=== PATIENT | female | born 1955 | race Caucasian/White ===

== ENCOUNTER → 2017-01-29 | Outpatient (REF) | payer OTHER, BC | LOC: M LAB REF 09:12 | PROVIDERS: ATTEND Physician Assistant | DX: R30.0 Dysuria (principal) ==

== ENCOUNTER → 2017-05-15 | Outpatient (REF) | payer OTHER, BC ==
[2017-05-15 22:18] LABS: APPEARANCE, URINE CLOUDY (CLEAR); BACTERIA, URINE AUTO 3+ (NEGATIVE); BILIRUBIN, URINE AUTO NEGATIVE (NEGATIVE); BLOOD, URINE BLOOD NEGATIVE (NEGATIVE); COLOR, URINE YELLOW (YELLOW); GLUCOSE, URINE (UA) AUTO NEGATIVE (NEGATIVE); KETONE, URINE AUTO NEGATIVE (NEGATIVE); LEUKOCYTE ESTERASE, URINE AUTO 3+ (NEGATIVE); MUCUS, URINE SMALL (NEGATIVE); NITRITE, URINE AUTO POSITIVE (NEGATIVE); PROTEIN, URINE AUTO NEGATIVE (NEGATIVE); RBC, URINE AUTO 1 /HPF (0-3); SQUAMOUS EPITHELIAL CELL UR AU 2 /HPF (0-6); WBC, URINE AUTO 59 /HPF (0-3)
== END ==
LOC: M LAB REF 08:35
DX: N39.0 Urinary tract infection, site not specified (principal)
CPT/HCPCS: 81001

== ENCOUNTER → 2017-09-18 | Outpatient (CLI) | payer OTHER, BC | LOC: M WHC 08:51 | DX: Z12.31 Encounter for screening mammogram for malignant neoplasm of breast (principal); Z78.0 Asymptomatic menopausal state; Z92.0 Personal history of contraception | CPT/HCPCS: 77067 ==

== ENCOUNTER → 2017-10-18 | Outpatient (CLI) | payer OTHER, BC | LOC: M RAD 13:42 | DX: R92.8 Other abnormal and inconclusive findings on diagnostic imaging of breast (principal); N63.20 Unspecified lump in the left breast, unspecified quadrant | CPT/HCPCS: 77065 ==

== ENCOUNTER → 2017-12-18 | Outpatient (CLI) | payer OTHER, BC | LOC: M RAD 09:26 | DX: N63.20 Unspecified lump in the left breast, unspecified quadrant (principal) | CPT/HCPCS: 76642 ==

== ENCOUNTER → 2018-01-01 | Outpatient (CLI) | payer OTHER, BC ==
[~2018-01-01] MED LIST: PROHANCE 279.3MG/ML 15ML VIAL (A9576) As Ordered
== END ==
LOC: M RAD 14:45
DX: N63.20 Unspecified lump in the left breast, unspecified quadrant (principal); N60.49 Mammary duct ectasia of unspecified breast; Z98.82 Breast implant status
CPT/HCPCS: A9576

== ENCOUNTER → 2018-09-02 | Outpatient (CLI) | payer OTHER, BC ==
--- NOTE | 2018-09-10 16:23 | SLEEPCENT ---
DATE OF PROCEDURE: 09/02/2018 ORDERED BY: Lily Patel NP Nocturnal polysomnography was performed for evaluation of sleep physiology in this patient with history of excessive somnolence. 9 hours and 28 minutes of data were reviewed. There were 408 minutes of sleep identified. Sleep latency was prolonged at 83 minutes. Rapid eye movement (REM) sleep latency was prolonged at 245 minutes. Sleep architecture was fair with a prolonged REM period between 2 and 4:30 a.m. Overall sleep efficiency was 72%. The patient's electrocardiogram showed sinus rhythm with an average heart rate of 68 beats per minute. Electroencephalogram (EEG) showed some coarsening in background. No focal events. Otherwise, normal waveforms for awake and sleep stages. There were 181 respiratory events identified of 10 seconds in duration or greater for an apnea-hypopnea index of 26.6. The events were primarily obstructive,. not exclusive to sleep stage nor body posture. Arousals from respiratory events occurred 3.4 times per hour and oxygen desaturations were seen into the upper 80s. There was some activity in the limb leads but arousals from limb events were few. IMPRESSION: Obstructive sleep apnea syndrome (G47.33). Apnea-hypopnea index 26.6. RECOMMENDATIONS: The patient should be encouraged to return to the sleep disorder center for pressure therapy. In the interim, alcohol and sedative avoidance should be practiced and caution exercised during the operation of motor vehicles.
== END ==
LOC: M SLEEP 20:00
PROVIDERS: ATTEND Nurse Practitioner Adult Health
DX: G47.33 Obstructive sleep apnea (adult) (pediatric) (principal)

== ENCOUNTER → 2018-09-29 | Outpatient (CLI) | payer OTHER, BC ==
--- NOTE | 2018-10-03 07:30 | SLEEPCENT ---
DATE OF STUDY: 10/02/2018 ORDERED BY: HUY Benjamin Nocturnal polysomnography was performed for the titration of pressure therapy in this patient with obstructive sleep apnea syndrome and apnea-hypopnea index of 26.6. For testing, a Infratel Simplus full-face mask of small size was used and 4 cm of water pressure were applied to the circuit and the lights were extinguished. 7 hours and 17 minutes of data were reviewed. There were 342 minutes of sleep identified. Sleep latency was prolonged at 40 minutes. Rapid eye movement (REM) sleep was not achieved during the study. Overall sleep efficiency was 79.9%. The patient's electrocardiogram showed a sinus rhythm with small complexes and average heart rate 72 beats per minute. Electroencephalogram (EEG) showed reasonably normal waveforms for awake and sleep. Respiratory events were fully palliated with C-PAP at a pressure +6. There was some limb activity noted particularly early in the study. Limb movement arousal index was 4.2. IMPRESSION: Obstructive sleep apnea syndrome (G47.33). RECOMMENDATION: Nightly use of pressure therapy at 6 cm of water.
== END ==
LOC: M SLEEP 20:00
PROVIDERS: ATTEND Nurse Practitioner Adult Health
DX: G47.33 Obstructive sleep apnea (adult) (pediatric) (principal)

== ENCOUNTER → 2019-02-12 | Outpatient (CLI) | payer OTHER, BC ==
--- NOTE | 2019-02-14 09:41 | DEXA ---
AP SPINE L1 - L4 1.065 -1.0 0.6 LT FEMUR TOTAL 0.828 -1.4 -0.3 LT NECK 0.771 -1.9 -0.5 RT FEMUR TOTAL 0.873 -1.1 0.1 RT NECK 0.842 -1.4 0.0 TOTAL BODY TOTAL OTHER COMMENTS: There is low bone density of the spine and hips. The increased density of the spine does not represent significant change. The decreased density of the left hip does represent a significant change. The decreased density of the right hip does not represent significant change. The density of the spine has increased 4.1% since the initial exam on 03/19/2007. The spine density has increased 1.6% since the most recent exam on 01/01/2017. The density of the left hip has decreased 5.4% since the initial exam on 03/19/2007. The density of the left hip has decreased 4.2% since the most recent exam on 12/30/2016. The density of the right hip has decreased 6.1% since the initial exam on 07/12/2010. The density of the right hip has decreased 1.9% since the most recent exam on 12/30/2016. FOLLOW-UP: Recommendation for the next bone density exam: 2 years. MORGAN
== END ==
LOC: M WHC 14:29
PROVIDERS: ATTEND Internal Medicine
DX: E83.52 Hypercalcemia (principal)

== ENCOUNTER → 2019-02-13 | Outpatient (CLI) | payer OTHER, BC ==
--- NOTE | 2019-02-13 14:56 | REP ---
NUCLEAR PARATHYROID SESTAMIBI SCAN WITH SPECT IMAGING: Following the intravenous administration of 25.1 mCi of technetium-99m sestamibi, AP and oblique images of the neck are performed at 15 minutes and 3.5 hours following injection. SPECT images are performed in the axial, coronal, and sagittal planes. There is symmetrical salivary gland uptake initially. There is uptake in the left thyroid lobe on initial images. This washes out on delayed images. There is no persistent focus of increased uptake on delayed imaging in the soft tissues of the neck that would suggest the presence of a parathyroid adenoma. The patient has had a prior right thyroidectomy. IMPRESSION: No compelling scintigraphic evidence of parathyroid adenoma. Electronically Signed by Alexei Hennessy MD 02/13/2019 06:41 P
== END ==
LOC: M RAD 08:19
PROVIDERS: ATTEND Internal Medicine
DX: E83.52 Hypercalcemia (principal)
CPT/HCPCS: 78070; 78803; A9500

== ENCOUNTER → 2020-11-12 | Outpatient (REF) | payer MEDICARE, OTHER, BC ==
[2020-11-12 20:16] LABS: APPEARANCE, URINE CLOUDY (CLEAR); BACTERIA, URINE AUTO 1+ (NEGATIVE); BILIRUBIN, URINE AUTO NEGATIVE (NEGATIVE); BLOOD, URINE BLOOD 1+ (NEGATIVE); CALCIUM OXALATE CRYSTALS MODERATE; COLOR, URINE AMBER (YELLOW); GLUCOSE, URINE (UA) AUTO NEGATIVE (NEGATIVE); KETONE, URINE AUTO NEGATIVE (NEGATIVE); LEUKOCYTE ESTERASE, URINE AUTO 3+ (NEGATIVE); MUCUS, URINE LARGE (NEGATIVE); NITRITE, URINE AUTO NEGATIVE (NEGATIVE); PROTEIN, URINE AUTO 2+ mg/dL (NEGATIVE); RBC, URINE AUTO 167 /HPF (0-3); SPECIFIC GRAVITY URINE AUTO 1.027 (1.002-1.035); SQUAMOUS EPITHELIAL CELL UR AU 4 /HPF (0-6); UROBILINOGEN, URINE AUTO 0.2 mg/dL (0.0-2.0); WBC, URINE AUTO TNTC /HPF (0-3)
== END ==
LOC: M LAB REF 17:32
PROVIDERS: ATTEND Physician Assistant
DX: R30.0 Dysuria (principal)

== ENCOUNTER → 2021-01-18 | Outpatient (REF) | payer MEDICARE, OTHER, BC ==
[2021-01-18 14:09] LABS: APPEARANCE, URINE CLOUDY (CLEAR); BACTERIA, URINE AUTO NEGATIVE (NEGATIVE); BILIRUBIN, URINE AUTO NEGATIVE (NEGATIVE); BLOOD, URINE BLOOD 2+ (NEGATIVE); COLOR, URINE YELLOW (YELLOW); GLUCOSE, URINE (UA) AUTO NEGATIVE (NEGATIVE); KETONE, URINE AUTO NEGATIVE (NEGATIVE); LEUKOCYTE ESTERASE, URINE AUTO 3+ (NEGATIVE); MUCUS, URINE SMALL (NEGATIVE); NITRITE, URINE AUTO NEGATIVE (NEGATIVE); PROTEIN, URINE AUTO NEGATIVE (NEGATIVE); RBC, URINE AUTO 28 /HPF (0-3); SPECIFIC GRAVITY URINE AUTO 1.015 (1.002-1.035); SQUAMOUS EPITHELIAL CELL UR AU 4 /HPF (0-6); UROBILINOGEN, URINE AUTO 0.2 mg/dL (0.0-2.0); WBC, URINE AUTO 153 /HPF (0-3)
== END ==
LOC: M LAB REF 13:30
PROVIDERS: ATTEND Physician Assistant
DX: N39.0 Urinary tract infection, site not specified (principal)

== ENCOUNTER → 2021-02-09 | Outpatient (CLI) | payer MEDICARE, OTHER, BC ==
--- NOTE | 2021-02-09 11:24 | DEXAMM ---
INDICATION: OTHER OSTEOPOROSIS WO CURRENT PATHOLOGICAL FX. COMPARISON: February 12, 2019. TECHNIQUE: Bone density was measured using dual-energy x-ray absorptionmetry (DEXA). FINDINGS: AP SPINE L1-L4 BMD 1.007 g/cm2 Young Adult T-Score -1.5 Age Matched Z-Score 0.1. LT FEMUR, TOTAL BMD 0.790 g/cm2 Young Adult T-Score -1.7 Age Matched Z-Score -0.5. LT NECK BMD 0.759 g/cm2 Young Adult T-Score -2.0 Age Matched Z-Score -0.5. RT FEMUR, TOTAL BMD 0.822 g/cm2 Young Adult T-Score -1.5 Age Matched Z-Score -0.2. RT NECK BMD 0.768 g/cm2 Young Adult T-Score -1.9 Age Matched Z-Score -0.4. IMPRESSION: There is low bone density of the spine. There is low bone density of the left hip. There is low bone density of the right hip. The density of the spine has decreased 1.6% since the initial exam on March 19, 2007. The density of the spine decreased 5.4% since the most recent exam on February 12, 2019. The density of the left hip has decreased 9.7% since the initial exam on March 19, 2007. The density of the left hip has decreased 4.6% since the most recent exam on February 12, 2019. The density of the right hip has decreased 11.6% since the initial exam on July 12, 2010. The density of the right hip has decreased 5.8% since the most recent exam on February 12, 2019. FOLLOW-UP: Recommendation for the next bone density exam: 2 years. <Electronically signed by Ashvin Munoz > 02/09/21 [id number]
== END ==
LOC: M WHC 09:59
PROVIDERS: ATTEND Internal Medicine
DX: M85.851 Other specified disorders of bone density and structure, right thigh (principal); M85.852 Other specified disorders of bone density and structure, left thigh; M85.88 Other specified disorders of bone density and structure, other site

== ENCOUNTER 2021-03-23 13:02 | Emergency (ER) | payer OTHER, MEDICARE, BC ==
[~2021-03-23] VITALS: Ht 160 cm; Wt 62.3 kg
--- OUTSIDE RECORDS SUMMARY | 2021-03-23 13:11 | CCD | Continuity of Care Document ---
Author Author Sara Cordon M.D. Organization Unknown Address [address] [address] Phone [phone] Care Team Providers Care Events Specialist Name Role Phone Lenka Cordon MD AUTM [phone] [facility] - director of field sales AUTM [phone] Problems Active Problems Provider Date Pure hypercholesterolemia Lenka Cordon M.D. Onset: 05/2020 Environmental allergy Lenka Cordon M.D. Onset: 021 Hypercalcemia Lenka Cordon M.D. Onset: 1 Hypothyroidism Lenka Cordon M.D. Onset: 1 Salcido's esophagus Lenka Cordon M.D. Onset: 1 Urge incontinence of urine Lenka Cordon M.D. Onset: Carcinoma of ovary, stage 4 Lenka Cordon M.D. Onset: 0 08/06/2020 Social History Type Date Description Comments Sex Unknown ETOH Use Denies alcohol use Tobacco Use Start: Unknown Patient has never smoked Allergies and adverse reactions Active Allergies Criticality Reaction | Severity Comments Date Avelox Unable to assess criticality Hives 08/06/2020 Taxol Unable to assess criticality Anaphylaxis 11/17/2020 Medications Active Medications SIG Qnty Indications Ordering Provide r Date Saline Nasal Radom 0.65% Solution 2-4x/d as directed 1units Lenka Cordon M.D. 03/22/20 21 Atorvastatin Calcium 40mg Tablets 1 by mouth every day 90tabs Lenka Cordon M.D. 08/07/19 [address] 1 by mouth every day 90caps Lenka Cordon M.D. 08/07/19 21 Lexapro 20mg Tablets 1 by mouth every day 90tabs Lenka Cordon M.D. 08/06/2020 Valtrex 1gm Tablets 1 bid po x 2 days prn Lenka Cordon M.D. 08/06/2020 Probiotic Capsules 1 by mouth every day Lenka Cordon M.D. 08/06/2020 Synthroid 75mcg Tablets 1 by mouth every day mendoza Unknown Vitamin D3 Super Strength 50mcg (2000 Ut) Tablets 1 by mouth every day Unknown 000 Myrbetriq 50mg Tablets ER 24HR 1 by mouth every day Unknown Singulair 10mg Tablets take one tablet by mouth at bedtime Unknown Zyrtec Allergy 10mg Tablets 1 by mouth every day Unknown Ocuvite Eye + Multi Tablets every day Unknown Immunizations CPT Code Status Date Vaccine Lot # [id number] Given 03/13/2021 Influenza,Unspecified [id number] Given 08/06/2020 Pneumovax 23 [id number] Vital Signs Date Vital Result Comment 03/22/2021 8:29am BP Systolic 128 mmHg RT Arm BP Diastolic 62 mmHg RT Arm Heart Rate 68 /min Height 63.25 inches 5'3.25" Weight 139.00 lb BMI (Body Mass Index) 24.4 kg/m2 11/17/2020 1:02pm BP Systolic 116 mmHg BP Diastolic 72 mmHg Heart Rate 84 /min Height 63.25 inches 5'3.25" Weight 138.00 lb BMI (Body Mass Index) 24.3 kg/m2 Results Test Acquired Date Facility Test Result H/L Range Note Laboratory test finding 02/17/2021 [facility] TSH 1.050 u[IU]/mL 0.270-4.200 Vit D 25 Hydroxy Total 39 ng/mL >30 Laboratory test finding 11/17/2020 alec Pearce Medical Supply Technician: [facility] [place] [address] [phone] Thyroid Stimulating Hormone 0.85 uIU/mL 0.3 6 - 3.74 Procedures Date Code Description Status 02/09/2021 [id number] Bone Mineral Density Test Comple jc 11/17/2020 34419 Office/Outpatient Established Mo d MDM 30-39 Min Completed Medical Devices Description No Information Available Encounters Type Date Location Provider Dx Diagnosis Office Visit 11/17/2020 1:15p [facility] Obi Cordon M.D. C56.9 Malignant neoplasm of unspec ified ovary F41.9 Anxiety disorder, unspecifie d K22.70 Salcido's esophagus without dysplasia M85.80 Oth disrd of bone density an d structure, unspecified site E03.9 Hypothyroidism, unspecified E83.52 Hypercalcemia N39.41 Urge incontinence J30.9 Allergic rhinitis, unspecifi ed Assessments Date Code Description Provider 03/22/2021 C56.9 Malignant neoplasm of unspecifie d ovary Lenka Cordon M.D. 03/22/2021 F41.9 Anxiety disorder, unspecified Elaine Cordon M.D. 03/22/2021 K22.70 Salcido's esophagus without dysp lasia Lenka Cordon M.D. 03/22/2021 M85.80 Other specified diso rders of bone density and structure, unspecified site Lenka Cordon M.D. 03/22/2021 E21.3 Hyperparathyroidism, unspecified Lenka Cordon M.D. 03/22/2021 E03.9 Hypothyroidism, unspecified Mojgan Cordon M.D. 03/22/2021 N39.41 Urge incontinence Lenka bruner M.D. 03/22/2021 J30.9 Allergic rhinitis, unspecified J gianluca Cordon M.D. 03/22/2021 E78.00 Pure hypercholesterolemia, unspe cified Lenka Cordon M.D. 03/22/2021 R73.09 Other abnormal glucose Lenka Cordon M.D. 11/17/2020 C56.9 Malignant neoplasm of unspecifie d ovary Lenka Cordon, M.D. 11/17/2020 F41.9 Anxiety disorder, unspecified Elaine Cordon M.D. 11/17/2020 K22.70 Salcido's esophagus without dysp lasia Lenka Cordon M.D. 11/17/2020 M85.80 Other specified diso rders of bone density and structure, unspecified site Lenka Cordon M.D. 11/17/2020 E03.9 Hypothyroidism, unspecified Mojgan Cordon M.D. 11/17/2020 E83.52 Hypercalcemia Lenka mccall M.D. 11/17/2020 N39.41 Urge incontinence Lenka bruner M.D. 11/17/2020 J30.9 Allergic rhinitis, unspecified J gianluca Cordon M.D. Plan of Treatment Future Appointment(s):* 08/16/2021 8:30 am - Lenka Cordon M.D. at [facility] * 08/16/2021 8:00 am - [facility] 03/22/2021 - Lenka Cordon M.D.* C56.9 Malignant neoplasm of unspecified ovary * F41.9 Anxiety disorder, unspecified * K22.70 Salcido's esophagus without dysplasia * M85.80 Other specified disorders of bone density and structure, unspecified site * E21.3 Hyperparathyroidism, unspecified * E03.9 Hypothyroidism, unspecified * N39.41 Urge incontinence * J30.9 Allergic rhinitis, unspecified * E78.00 Pure hypercholesterolemia, unspecified* New Labs:* Lipid Panel, Ordered: 03/22/21 * R73.09 Other abnormal glucose* New Labs:* Hemoglobin A1c, Ordered: 03/22/21 * All * New Medication:* Saline Nasal Radom 0.65 % - 2-4x/d as directed Functional Status Description No Information Available Mental Status Description No Information Available Referrals Description No Information Available
--- OUTSIDE RECORDS SUMMARY | 2021-03-23 13:11 | CCD | Continuity of Care Document ---
Author Author Sara Cordon M.D. Organization Unknown Address [address] [address] Phone [phone] Care Team Providers Care Junior Account Executive Name Role Phone Lenka Cordon MD AUTM [phone] [facility] - technical solution architect AUTM [phone] Problems Active Problems Provider Date Pure hypercholesterolemia [...] SIG Qnty Indications Ordering Provide r Date Atorvastatin Calcium 40mg Tablets 1 by mouth [...] Eye + Multi Tablets every day Unknown Lovenox 40mg/0.4ML Solution 0.4ml sq daily Unknown Immunizations CPT Code Status Date Vaccine Lot # [id number] Given 08/06/2020 Pneumovax 23 [id number] Vital Signs Date Vital Result Comment 11/17/2020 1:02pm BP Systolic 116 mmHg BP Diastolic 72 mmHg Heart Rate 84 /min Height 63.25 inches 5'3.25" Weight 138.00 lb BMI (Body Mass Index) 24.3 kg/m2 08/06/2020 10:57am BP Systolic 122 mmHg RT Arm BP Diastolic 68 mmHg RT Arm Heart Rate 87 /min Height 63.25 inches 5'3.25" Weight 147.00 lb BMI (Body Mass Index) 25.8 kg/m2 Results Test Acquired Date Facility Test Result H/L Range Note Laboratory test finding 02/17/2021 [facility] TSH 1.050 u[IU]/mL 0.270-4.200 Vit D 25 Hydroxy Total 39 ng/mL >30 Laboratory test finding 11/17/2020 alec Pearce Pinion Sorter: [place] [address] [phone] Thyroid Stimulating Hormone 0.85 uIU/mL 0.3 6 - 3.74 Procedures Date Code Description Status 02/09/2021 [id number] Bone Mineral Density Test Comple jc 11/17/2020 31188 Office/Outpatient Established Mo d MDM 30-39 Min Completed Medical Devices Description No Information Available Encounters Type Date Location Provider Dx Diagnosis Office Visit 11/17/2020 1:15p [facility] Obi Cordon M.D. C56.9 Malignant neoplasm of unspec ified ovary F41.9 Anxiety disorder, unspecifie d K22.70 Salcido's esophagus without dysplasia M85.80 Oth disrd of bone density an d structure, unspecified site E03.9 Hypothyroidism, unspecified E83.52 Hypercalcemia N39.41 Urge incontinence J30.9 Allergic rhinitis, unspecifi ed Assessments Date Code Description Provider 11/17/2020 C56.9 Malignant neoplasm of unspecifie d ovary Lenka Cordon M.D. 11/17/2020 F41.9 Anxiety disorder, unspecified Elaine Cordon M.D. 11/17/2020 K22.70 Salcido's esophagus without dysp lasia eLnka Cordon M.D. 11/17/2020 M85.80 Other specified diso rders of bone density and structure, unspecified site Lenka Cordon M.D. 11/17/2020 E03.9 Hypothyroidism, unspecified Mojgan Cordon M.D. 11/17/2020 E83.52 Hypercalcemia Lenka mccall M.D. 11/17/2020 N39.41 Urge incontinence Lenka bruner M.D. 11/17/2020 J30.9 Allergic rhinitis, unspecified J gianluca Cordon M.D. Plan of Treatment Future Appointment(s):* 03/22/2021 8:30 am - Lenka Cordon M.D. at [facility] 11/17/2020 - Lenka Cordon M.D.* C56.9 Malignant neoplasm of unspecified ovary * F41.9 Anxiety disorder, unspecified * K22.70 Salcido's esophagus without dysplasia * M85.80 Other specified disorders of bone density and structure, unspecified site * E03.9 Hypothyroidism, unspecified * E83.52 Hypercalcemia * N39.41 Urge incontinence * J30.9 Allergic rhinitis, unspecified * All * Comments:* Health Maintenance. I'll hold off on Shingrix and Tetanus until is more stable. She gets mammograms at Dr. Serrano. Functional Status Description No Information Available Mental Status Description No Information Available Referrals Description No Information Available
--- OUTSIDE RECORDS SUMMARY | 2021-03-23 13:11 | CCD | Continuity of Care Document ---
Author Author Sara Cordon M.D. Organization Unknown Address [address] [address] Phone [phone] Care Team Providers Care Youth Manager Name Role Phone Lenka Cordon MD AUTM [phone] [facility] - library media technician AUTM [phone] Problems Active Problems Provider Date Pure hypercholesterolemia [...] CPT Code Status Date Vaccine Lot # [id number] Given 08/06/2020 Pneumovax 23 [id number] Vital Signs Date Vital Result Comment 11/17/2020 [...] H/L Range Note Laboratory test finding 02/17/2021 [facility] TSH 1.050 u[IU]/mL 0.270-4.200 Vit D 25 Hydroxy Total 39 ng/mL >30 Laboratory test finding 11/17/2020 alec Pearce Director Of Compliance: [place] [address] [phone] Thyroid Stimulating Hormone 0.85 uIU/mL 0.3 6 - 3.74 Procedures Date Code Description Status 02/09/2021 [id number] Bone Mineral Density Test Comple jc 11/17/2020 99563 Office/Outpatient Established Mo d MDM 30-39 Min Completed Medical Devices Description No Information Available Encounters Type Date Location Provider Dx Diagnosis Office Visit 11/17/2020 1:15p [facility] Obi Cordon M.D. C56.9 Malignant [...] 8:30 am - Lenka Cordon M.D. at [facility] 11/17/2020 - Lenka Cordon M.D.* C56.9 [...]
--- OUTSIDE RECORDS SUMMARY | 2021-03-23 13:12 | CCD | Continuity of Care Document ---
Author Author Sara PETTIT ANP Organization Unknown Address [address] [place] [address] Phone [phone] Care Team Providers Care Meteorological Observer Name Role Phone Lorena Portillo AUTM [phone] [facility]M [phone] Shadi Sotelo M.D. AUTM [phone] Lenka Healy M.D. AUTM [phone] Problems Active Problems Provider Date Squamous cell carcinoma of skin of trunk Marion Guzman Onset: 07/24/2013 Polypoid sinus degeneration Loy Price MD Onset: Dysphagia Loy Price MD Onset: 12/23/2013 Obstructive sleep apnea syndrome HUY Benjamin Onset: 02/05/2020 Social History Type Date Description Comments Sex Unknown ETOH Use Occasionally consumes alcohol Tobacco Use Start: Unknown Patient has never smoked Smoking Status Reviewed: 02/09/21 Patient has never smoked Allergies and adverse reactions Active Allergies Criticality Reaction | Severity Comments Date Environmental Unable to assess criticality 09/19/2011 Avelox Unable to assess criticality HIVES 07/23/2013 Augmentin Unable to assess criticality VOMITING 07/23/2013 Taxol Unable to assess criticality Anaphylactic Shock 02/09/2021 Medications Active Medications SIG Qnty Indications Ordering Provide r Date CPAP Device 8cm HUY Gramajo 01/26/2020 Singulair 10mg Tablets 1 po q d 30tabs Unknown Zyrtec Allergy 10mg Tablets 1 po qd 30tabs Unknown Lexapro 20mg Tablets 1 po qd Unknown Omeprazole 20mg Capsules DR 1 po qd 30caps Unknown Vitamin D3 High Potency 1000Unit C apsules 1 tab po daily 30caps Unknown Multivitamins Capsules 1 cap po daily Unknown Synthroid 75mcg Tablets every day Unknown Atorvastatin Calcium 40mg Tablets 1 by mouth daily Unknown Myrbetriq 50mg Tablets ER 24HR 1 by mouth daily Unknown Potassium Chloride Landy ER every day Unknown Iron (Ferrous Sulfate) every day Unknown Immunizations Description No Information Available Vital Signs Date Vital Result Comment 02/09/2021 12:51pm BP Systolic 110 mmHg BP Diastolic 70 mmHg Heart Rate 90 /min O2 % BldC Oximetry 98 % Height 64 inches 5'4" Weight 138.00 lb BMI (Body Mass Index) 23.7 kg/m2 [place] Body Weight 120 lb Weight 62.597 kg BSA (Body Surface Area) 1.67 m2 02/05/2020 12:45pm BP Systolic 118 mmHg BP Diastolic 78 mmHg Heart Rate 80 /min O2 % BldC Oximetry 96 % Body Temperature 96.8 F Height 64 inches 5'4" Weight 162.00 lb BMI (Body Mass Index) 27.8 kg/m2 [place] Body Weight 120 lb Weight 73.483 kg BSA (Body Surface Area) 1.79 m2 Results Description No Information Available Procedures Description No Information Available Medical Devices Description No Information Available Encounters Description No Information Available Assessments Date Code Description Provider 02/09/2021 G47.33 Obstructive sleep apnea (adult) (pediatric) HUY Benjamin Plan of Treatment Future Appointment(s):* 02/10/2022 11:00 am - HUY Benjamin at [facility] Pulmonary/Thoracic 02/09/2021 - HUY Benjamin* G47.33 Obstructive sleep apnea (adult) (pediatric) * * Follow up:* Follow up in 12 months with compliance report for TU-[facility] Functional Status Description No Information Available Mental Status Description No Information Available Referrals Description No Information Available
--- OUTSIDE RECORDS SUMMARY | 2021-03-23 13:12 | CCD | Summary of Care ---
Author Author [facility] Organization [facility] Address Unknown Phone Unavailable Care Team Providers Care Certified Ski Patroller Name Role Phone Lenka Cordon MD PCP Reason for Referral * Consultation (Routine) Referred By Contact Referred To Contact Status Reason Specialty Diagnoses / Procedures Aditi Santiago NP [address] [place] [phone] Email: [email or web address] Hyacinth Srivastava MD PhD [address] [place] [phone] Email: [email or web address] Authorized Specialty Services Surgery Diagnoses Required Carcinoma of right ovary 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 Electronically signed by Aditi Santiago TREE EXPERT at Reason for Visit * Reason Comments Follow-up Encounter Details Care Team Description Date Type Department Noris Bee MD [address] [place] [address] [phone] Carcinoma of right ovary (Primary Dx); 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 Active escitalopram (LEXAPRO) 20 Take 20 mg by 0 MG tablet mouth daily. Active montelukast (SINGULAIR) Take 10 mg by 0 10 MG tablet mouth nightly. Active cetirizine (ZYRTEC) 5 MG Take 5 mg by 0 tablet mouth daily. Active Multiple Vitamin Take 1 tablet 0 (MULTIVITAMIN) tablet by mouth daily. Active levothyroxine (SYNTHROID, Take 75 mcg 0 LEVOTHROID) 88 MCG tablet by mouth daily Active Cholecalciferol (VITAMIN Take 4,000 0 D) 2000 UNITS tablet Units by mouth daily. Active atorvastatin (LIPITOR) 40 Take 40 mg by 0 MG tablet mouth every evening Active albuterol (PROVENTIL) as needed 0 06/01/19 1 (2.5 MG/3ML) 0.083% 8 nebulizer solution Active VENTOLIN HFA 108 (90 as needed 0 Base) MCG/ACT inhaler 8 Active nitrofurantoin, Take one 90 capsule 3 macrocrystal-monohydrate, tablet as 8 (MACROBID) 100 MG capsule needed with intercourse Active Estradiol 0.1 MG/GM Using 127.5 g 3 Vaginal Cream (ESTRACE) fingertip, 0 place pea-sized amount in vagina daily Active Probiotic Product Take by mouth 0 (PROBIOTIC PO) Active Prochlorperazine Maleate Take 1 tablet 30 tablet 1 10 MG Oral Tablet by mouth 1 (COMPAZINE)Indications: every 6 (six) Serous carcinoma of hours as female pelvis needed (Nausea, Vomiting) 09/03/2021 Active Lidocaine-Prilocaine Apply to port 30 g 3 2.5-2.5 % External Cream site as 1 (EMLA) instructed Active Mirabegron ER 50 MG Oral Take 1 tablet 90 tablet 3 Tablet Extended Release by mouth 1 24 Hour daily DAW0 09/24/2021 Active Acyclovir 5 % External Apply to 15 g 3 Ointment (Zovirax) herpetic 1 lesions 3-5 times daily 11/25/2020 Discontinued Elon-3 Fatty Acids (FISH Take 2,400 mg 0 OIL) 1200 MG CAPS by mouth daily. 12/04/2020 Discontinued (Reorder) Ondansetron HCl 8 MG Oral Take 1 tablet 20 tablet 1 Tablet by mouth 1 (ZOFRAN)Indications: every 8 Serous carcinoma of (eight) hours female pelvis as needed for Nausea or Vomiting 12/03/2020 Polysaccharide Iron Take 1 90 capsule 0 Complex 150 MG Oral capsule by 1 Capsule (Ferrex 150) mouth daily 12/18/2020 Discontinued (Reorder) Potassium Chloride ER 10 Take 2 60 capsule 0 0 MEQ Oral Capsule Extended capsules by 1 Release (MICRO-K) mouth Two Times Daily 12/04/2020 Discontinued Potassium Chloride Landy Take 1 tablet 60 tablet 3 ER 10 MEQ Oral Tablet by mouth Two 1 Extended Release (K-DUR) Times Daily documented as of this encounter (statuses as of 12/27/2020) Active Problems Problem Noted Date 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/12/2020 Cancer Staging: Clinical stage from 10/12: FIGO Stage FOSTER, calculated as Stage IV (cTX, cM1) - Signed by Noris christina MD on 10/12/2020 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 Urinary frequency 01/07/2016 Urinary urgency 01/07/2016 Recurrent UTI 01/01/2016 documented as of this encounter (statuses as of 12/27/2020) Immunizations Name Administration Dates Next Due documented as of this encounter Social History Date Tobacco Use Types Packs/Day Years Used Never Smoker Smokeless Tobacco: Never Used Comments Alcohol Use Standard Drinks/Week Social Yes 0 (1 standard drink = 0.6 o z pure alcohol) Sex Assigned at Date Recorded Not on file Date Recorded COVID-19 Exposure Response 12/25/2020 10:47 AM EDT In the last month, have you been in contact with No / Unsure someone who was confirmed or suspected to have Coronavirus / COVID-19? documented as of this encounter Last Filed Vital Signs Reading Time Taken Comments Vital Sign 115/70 11/25/2020 1:38 PM EDT Blood Pressure 82 11/25/2020 1:38 PM EDT Pulse 37.1 C (98.7 F) 11/25/2020 1:38 PM EDT Temperature 16 11/25/2020 1:38 PM EDT Respiratory Rate 98% 11/25/2020 1:38 PM EDT Oxygen Saturation - - Inhaled Oxygen Concentration 62.4 kg (137 lb 9.6 oz) 11/25/2020 8:25 AM EDT Weight - - Height 23.99 08/27/2020 7:35 AM EDT Body Mass Index documented in this encounter Progress Notes * Noris Bee MD - 11/25/2020 8:15 AM EDT I saw and evaluated the patient Sara Baca with non- physician practitioner Amalia Santiago. Reviewed her history, relevant imaging and lab studies. Discussed wi th the non-physician practitioner and agree with the non-physician practitioner findings and plan as documented in their note along with any supplemental dictat ed and/or documentation in the patient record by myself. The treatment plan was discussed with the patient and her . 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 She is status p ost 3 cycles of neoadjuvant carboplatin and Abraxane treatment with fairly okay tolerance. She will start the adjuvant treatment today and will continue it for 3 more cycles. She does understand the need for future dose reductions of carb oplatin given the severe thrombocytopenia she has had however she requested cont inue her at the similar dose for now and modify if needed be after this cycle. Noris Bee MD Pager - [phone] Supervisor Press Room Department of Hematology Oncology [facility] 12/27/2020 7:06 PM * Aditi Santiago NP - 11/25/2020 8:15 AM EDT Images from the original note were not included. 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 female who presents today for follow up. Patient anam es diagnosis of high-grade serous carcinoma of the adnexa with carcinomatosis. She began having symptoms of constipation and was experiencing abdominal distent ion for which she sought the attention of her PCP who pursued medical management . When symptoms were not improving, a CT scan was ordered showing a mass in the mesentery abutting the right hepatic lobe measuring 12.9 x 7.6 cm with enlarged regional lymph nodes. A moderate left pleural effusion was also observed with m ediastinal, hilar, and cardiophrenic adenopathy concerning for metastatic diseas e. A dedicated CT scan of the abdomen showed omental carcinomatosis. The patient underwent a omental mass biopsy on 07/30/2020 revealing a high-grade serous carc inoma positive for WT-1, PAX-8, p53, and ER. She also underwent a therapeutic pa racentesis removing 3.6 L. Her CA-125 was reportedly around 1000. Patient sought consultation with Aris Dean and it was their recommendation to pursue neoadjuvant chemotherapy prior to disease debulking consisting of every 21-day carboplatin and paclitaxel for 3 cycles[address] She met with Dr. Shante Schwab, who is intended to perform the procedure. Patient had a paracentesis on 08/14/20 a nd was feeling well after that. She met with Dr. Bee for consultation on and received her first cycle of chemotherapy with carboplatin/taxol with neul efrem support on 08/13/20. She had a reaction to taxol therefore received abraxane instead. She completed 3 cycles of neoadjuvant Carbo/Abraxane on 09/30/[address] Ch est abdomen pelvis done on 10/13/2020 which showed mediastinal and bilateral hilar lymphadenopathy with slight overall improvement, resolution of large left pleur al effusion, significant decrease in mesenteric/omental metastatic disease and a bdominopelvic ascites with some residual soft tissue thickening of dome of the l iver, improved abdominal lymphadenopathy, decreased size of left ovarian mass. S he had debulking surgery with removal of fallopian tubes and ovaries on [address] [facility] [address]. Schwab. Dr Schwab agrees with plan for 3 cy cles of adjuvant Carbo/Abraxane with scans to be done afterwards at [facility]. She presents for follow up evaluation and cycle 4 adjuvant therapy. Interim History: Patient presents with her spouse for follow up evaluation. She reports she is do ing really well after her surgery. She reports she ended up receiving a unit of plt for platelet count of 10k prior to her surgery. She reports she recovered fa irly well from surgery. She has good energy, eating and drinking well with stabl e weight. She has no significant complaints. Denies any fevers, chills, cold sym ptoms, cough, SOB, CP, palpitations, abdominal pain, nausea, vomiting, diarrhea, constipation, difficulty urinating, hematuria, vaginal bleeding, abnormal bleed ing or bruising, swelling or rashes. Subjective: Past Medical History: Diagnosis Date Asthma Salcido's esophagus Depression Environmental allergies GERD (gastroesophageal reflux disease) Hypercalcemia Incontinence of urine Thyroid disease Urinary frequency Family and Social History Sara Baca family history includes COPD in her mother; Cancer in her father; H eart disease in her father; Hypertension in her mother. She reports that she somers s never smoked. She has never used smokeless tobacco. She reports current alcoho l use. She reports that she does not use drugs. Medications and Allergies Allergies Allergen Reactions Paclitaxel Anaphylaxis Paclitaxel (Taxol) Augmentin [Amoxicillin-Pot Clavulanate] Nausea And Vomiting Avelox [Moxifloxacin Hcl In Nacl] Hives Current Outpatient Medications on File Prior to Visit Medication Sig Dispense Refill Acyclovir 5 % External Ointment (Zovirax) Apply to herpetic lesions 3-5 t imes daily 15 g 3 albuterol (PROVENTIL) (2.5 MG/3ML) 0.083% nebulizer solution as needed 0 atorvastatin (LIPITOR) 40 MG tablet Take 40 mg by mouth every evening cetirizine (ZYRTEC) 5 MG tablet Take 5 mg by mouth daily. Cholecalciferol (VITAMIN D) 2000 UNITS tablet Take 4,000 Units by mouth d aily. escitalopram (LEXAPRO) 20 MG tablet Take 20 mg by mouth daily. Estradiol 0.1 MG/GM Vaginal Cream (ESTRACE) Using fingertip, place pea-si zed amount in vagina daily 127.5 g 3 levothyroxine (SYNTHROID, LEVOTHROID) 88 MCG tablet Take 75 mcg by mouth daily Lidocaine-Prilocaine 2.5-2.5 % External Cream (EMLA) Apply to port site a s instructed 30 g 3 Mirabegron ER 50 MG Oral Tablet Extended Release 24 Hour Take 1 tablet by mouth daily DAW0 90 tablet 3 montelukast (SINGULAIR) 10 MG tablet Take 10 mg by mouth nightly. Multiple Vitamin (MULTIVITAMIN) tablet Take 1 tablet by mouth daily. nitrofurantoin, macrocrystal-monohydrate, (MACROBID) 100 MG capsule Take one tablet as needed with intercourse 90 capsule 3 omeprazole (PRILOSEC) 20 MG capsule Take 20 mg by mouth daily. Ondansetron HCl 8 MG Oral Tablet (ZOFRAN) Take 1 tablet by mouth every 8 (eight) hours as needed for Nausea or Vomiting 20 tablet 1 Polysaccharide Iron Complex 150 MG Oral Capsule (Ferrex 150) Take 1 capsu le by mouth daily 90 capsule 0 Probiotic Product (PROBIOTIC PO) Take by mouth Prochlorperazine Maleate 10 MG Oral Tablet (COMPAZINE) Take 1 tablet by m outh every 6 (six) hours as needed (Nausea, Vomiting) 30 tablet 1 VENTOLIN HFA 108 (90 Base) MCG/ACT inhaler as needed 0 [DISCONTINUED] Elon-3 Fatty Acids (FISH OIL) 1200 MG CAPS Take 2,400 mg by mouth daily. No current facility-administered medications on file prior to visit. Review of Systems Constitutional: Negative for appetite change, chills and fever. Less fatigued compared to after first cycle HENT: Negative for congestion, ear pain, sore throat and trouble swallowing. Respiratory: Negative for cough and shortness of breath. Cardiovascular: Negative for chest pain and leg swelling. Gastrointestinal: Negative for abdominal pain, constipation, diarrhea, nausea an d vomiting. Genitourinary: Negative for dysuria, frequency, hematuria and urgency. Musculoskeletal: Negative for arthralgias, gait problem, joint swelling, myalgia s and neck pain. Skin: Negative for pallor and rash. Resolving cold sore Neurological: Negative for dizziness, weakness, light-headedness, numbness and h eadaches. Hematological: Negative for adenopathy. Does not bruise/bleed easily. Objective: Vitals: Vitals - 1 value per visit 09/25/2020 09/30/2020 11/25/2020 SYSTOLIC 116 120 116 DIASTOLIC 72 74 78 PULSE 85 82 74 TEMPERATURE 98.3 98.2 97.7 RESPIRATIONS 16 16 16 Weight (kg) 62.959 kg 63.141 kg 62.415 kg HEIGHT - - - SPO2 99 97 99 BODY MASS INDEX 24.2 kg/m2 24.27 kg/m2 23.99 kg/m2 PAIN SCALE - SCORE 0 0 0 LAST MENSTRUAL PERIOD - - - Physical Exam Vitals reviewed. Constitutional: General: She is not in acute distress. Appearance: She is not toxic-appearing. HENT: Head: Normocephalic and atraumatic. Mouth/Throat: Mouth: Mucous membranes are moist. Pharynx: Oropharynx is clear. No oropharyngeal exudate. Eyes: General: No scleral icterus. Right eye: No discharge. Left eye: No discharge. Conjunctiva/sclera: Conjunctivae normal. Pupils: Pupils are equal, round, and reactive to light. Cardiovascular: Rate and Rhythm: Normal rate and regular rhythm. Heart sounds: Normal heart sounds. No murmur heard. No gallop. Pulmonary: Effort: Pulmonary effort is normal. No respiratory distress. Breath sounds: Normal breath sounds. No stridor. No wheezing or rhonchi. Abdominal: General: Bowel sounds are normal. There is no distension. Palpations: Abdomen is soft. Tenderness: There is no abdominal tenderness. There is no guarding or rebound . Musculoskeletal: General: No swelling. Normal range of motion. Cervical back: Normal range of motion and neck supple. Skin: General: Skin is warm and dry. Capillary Refill: Capillary refill takes less than 2 seconds. Coloration: Skin is not jaundiced. Neurological: General: No focal deficit present. Mental Status: She is alert and oriented to person, place, and time. Psychiatric: Mood and Affect: Mood normal. Behavior: Behavior normal. Thought Content: Thought content normal. Judgment: Judgment normal. Imaging 07/29/20: Pathology Reviewed: Lab Review Office Visit on 11/25/2020 Component Date Value Ref Range Status White Blood Cell 11/25/2020 4.9 4.00 - 10.00 10*3/uL Final Red Blood Cell 11/25/2020 3.88* 4.10 - 5.30 10*6/uL Final Hemoglobin 11/25/2020 12.0 11.5 - 15.5 g/dL Final Hematocrit 11/25/2020 35.5* 36.0 - 45.0 % Final Mean Cell Volume 11/25/2020 91.5 80.0 - 96.0 fL Final Mean Cell Hemoglobin 11/25/2020 31.0 27.0 - 33.0 pg Final Mean Cell Hgb Conc 11/25/2020 33.8 32 - 36 g/dL Final Red Cell Dist Width 11/25/2020 17.4* 11.5 - 14.5 % Final Platelet Count 11/25/2020 165 150 - 400 10*3/uL Final Differential Type 11/25/2020 Automated Diff Final Neutrophil 11/25/2020 47 % Final Lymphocyte 11/25/2020 34 % Final Monocyte 11/25/2020 9 % Final Eosinophil 11/25/2020 9 % Final Basophil 11/25/2020 1 % Final Abs Neutrophil 11/25/2020 2.33 1.80 - 7.00 10*3/uL Final Abs Lymphocyte 11/25/2020 1.66 1.20 - 4.00 10*3/uL Final Abs Monocyte 11/25/2020 0.43 0.00 - 0.80 10*3/uL Final Abs Eosinophil 11/25/2020 0.43 0.00 - 0.50 10*3/uL Final Abs Basophil 11/25/2020 0.02 0.00 - 0.20 10*3/uL Final Nucleated Red Blood Cells 11/25/2020 0 0 - 0 /100 Final Tumor Markers Lab Results Component Value Date CA125 67 (H) 09/30/2020 CA125 80 (H) 09/25/2020 CA125 499 (H) 09/04/2020 Assessment: Sara Baca is a 64 year old female with stage IV ovarian cancer who was treate d with 3 cycles of neoadjuvant carboplatin/taxol, taxol switched to abraxane cyc le 2 due to taxol reaction who had debulking surgery on 10/26/2020 and presents f or follow up evaluation. # High-grade serous carcinoma of the ovary - Completed 3 cycles of neoadjuvant carboplatin/taxol, taxol switched to abraxan e d/t taxol reaction. She had debulking surgery with fallopian and ovaries remov al on 10/26/2020 at [facility]. Plan is for to have 3 adjuvant cycles and r escan after. - Clinically doing well with no significant complaints. She was on Lovenox for 4 weeks after surgery for DVT PPX. - Labs reviewed and adequate for treatment today. Proceed with cycle # 4 Carbopl atin/Abraxane with Neulasta support. - RTC on 12/18/2020 for follow up evaluation with labs and cycle # 5 Carboplatin/ Abraxane/Neulasta - Advised to notify us of worsening symptoms or concerns prior to her return Plan: Sara Baca should return on 12/18/2020 for OV Cristal labs cycle 5 Carbo/Ab raxane with Neulasta support Imaging prior to return to clinic?: no Labs on return to clinic? yes Medication changes? no Opioid induced constipation? n/a Meds reconciled? yes Referrals needed? There are no social work or other referral needs at this time Patient aware and in agreement with above plan of care. Patient advised to notify 28/11 arson and bomb investigator service if any problems, issues or questi ons arise prior to return to clinic. Patient evaluated by myself in person and by Dr. Bee who is in agreement with above plan. Certain parts of this note may have been carried over from prior hematology/onco logy notes to maintain accuracy of patient pertinent medical history and continu ity of care. The details were verified and edited as appropriate. Total time spent with patient, reviewing chart and discussing plan of care was a pproximately 30 minutes. Aditi Santiago NP documented in this encounter Nursing Notes * Anushka Kelly RN - 11/25/2020 8:15 AM EDT TREATMENT ADMINISTRATION NOTE: Sara Baca presents to infusion for Cycle 4, Day 1, of Abraxane/Carboplatin. S Oncology Nursing Assessment flowsheet for patients assessment.Port init iated without incident on fourth floor. Port flushed easily and blood return was confirmed before, during, and after treatment. Patient states she had a gap in treatment due to recent surgery, but denies any new symptoms or complications since surgery.Team Cristal aware of pt K today. Pt will be receiving 1 run of IV K over 1 hour and rx sent to pt home pharmacy for oral supplementation. Pt made aware to pick this up on way home. Patient tolerated infusion well. Following infusion, Port discontinued per liliana col and Neulasta OBI placed on pt left posterior arm per order with pt knowledge of delivery date/time. VS stable, and as noted below. Patient encouraged to richard l with any questions or concerns and aware of 24 hour on-call service. Patient i s aware of need to return to clinic for next appt. AVS provided with next appoin tment date and time. Patient discharged home, accompanied by . Visit Vitals BP 115/70 (BP Location: Left arm) Pulse 82 Temp 37.1 C (98.7 F) (Oral) Resp 16 Wt 62.4 kg (137 lb 9.6 oz) LMP 10/07/2011 SpO2 98% BMI 23.99 kg/m documented in this encounter Plan of Treatment Care Team Description Date Type Specialty Noris Bee MD [address], [place] [phone] 01/15/2021 Office Visit Hematology and Onco logy Shay Mendiola MD [address] [facility] [place], [place] [phone] Tena Blair, MPH [address] [facility] [address] [place] [address] 02/10/2021 Office Visit Hematology and Onco logy Order Schedule Name Type Priority Associated Diag noses Ordered: 11/25/2020 Referral to Genetic Outpatient Routine Carcinoma of right ovary Counseling Program Referral 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 1955 [id number]) MMR Vaccines (1 of - 11/23/1956 Standard series) Varicella Vaccines (1 of 11/23/1956 2 - 2-dose childhood series) Pneumococcal Vaccine: 65+ 1960 Years (1 of 4 - PCV13) Pneumococcal Vaccine: 1961 Pediatrics (0 to 5 Years) and At-Risk Patients (6 to 64 Years) (1 of 4 - PCV13) DTaP,Tdap,and Td Vaccines 1961 (1 - Tdap) Breast Cancer Screening 2 2004 years Colon Cancer Screening 10 2004 yrs Zoster Vaccines (1 of 2) 2004 Osteoporosis Screening 2 11/23/2019 yr Influenza Vaccine 02/05/2021 02/17/2020, 03/01/2018, 03/16/2017, Additional history exists COVID-19 Vaccine Completed 06/25/2020, 05/28/2020 HIB Vaccines Aged Out No longer eligible based on patient's age to complete this topic Hepatitis A Vaccines Aged Out No longer eligibl e based on patient's age to complete this topic Hepatitis B Vaccines Aged Out No longer eligibl e based on patient's age to complete this topic IPV Vaccines Aged Out No longer eligible based on patient's age to complete this topic documented as of this encounter Implants Device Identifier Shelf Expiration Date Model / Serial / L ot Implanted Type Area Manufactur er 01/05/2025 [id number] / / [id number] Port- Dignity 8fr Sl - [id number] Right: Chest MED COMP Implanted: Qty: 1 on 08/27/2020 by Maximus Pena DO at [facility] documented as of this encounter Procedures Comments Procedure Name Priority Date/Time Associated Diag nosis CBC AND DIFFERENTIAL Routine 11/25/2020 Carcinoma of right ovary 8:12 AM EDT 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 Its use as an aid in the management of Ovarian Cancer has been reported. CA125 values obtained using different methodologies cannot be used interchangeably. This method is manufactured by [employer] and is an electrochemiluminesence immunoassay. Specimen Plasma Performing Organization Address City/State/ZIP Code P maxx Number [facility] [address] [place], [place] [address] PATHOLOGY [facility] [address] [place], [place] [address] Clin Pathology * Comprehensive metabolic panel (11/25/2020 8:12 AM EDT) Albumin 4.5 3.5 - 5.2 g/dL [facility] Pathology Bilirubin, 0.5 <1.2 mg/dL [facility] Total [facility] Pathology Calcium 11.6 (H) 8.8 - 10.2 mg/dL [facility] Pathology Chloride 101 98 - 107 mmol/L [facility] Pathology Creatinine 0.72 0.50 - 0.90 mg/dL [facility] Pathology Glucose 145 (H) 70 - 140 mg/dL [facility] Pathology Alkaline 60 35 - 104 U/L [facility] Phosphatase [facility] Pathology Potassium 3.3 (L) 3.4 - 5.1 mmol/L [facility] Pathology Total Protein 7.7 6.4 - 8.3 g/dL [facility] Pathology Sodium 137 136 - 145 mmol/L [facility] Pathology AST/SGO 17 <32 U/L [facility] Pathology Blood Urea 18 8 - 23 mg/dL [facility] Clin Pathology Osmolality, Richard 288 275.0 - 300.0 [facility] mosm/kg [facility] Pathology BUN/Cre Ratio 25 [facility] Bicarbonate 28 22 - 29 mmol/L [facility] ALT/SGP 16 <33 U/L [facility] Anion Gap 8 8 - 15 mmol/L [facility] GFR Non 88 >60 mL/min/1.73m2 [facility] CDK-EPI Pathology GFR >90 >60 mL/min/1.73m2 [facility] [place] 2008 [facility] CKD-EPI Pathology Specimen Plasma Performing Organization Address City/State/ZIP Code P maxx Number [facility] [address] [place], [place] [address] PATHOLOGY [facility] [address] [place], [place] [address] Clin Pathology * CBC and differential (11/25/2020 8:12 AM EDT) White Blood 4.9 4.00 - 10.00 10*3/uL [facility] Pathology Red Blood Cell 3.88 (L) 4.10 - 5.30 10*6/uL [facility] Pathology Hemoglobin 12.0 11.5 - 15.5 g/dL [facility] Hematocrit 35.5 (L) 36.0 - 45.0 % [facility] Pathology Mean Cell 91.5 80.0 - 96.0 fL [facility] Volume [facility] Pathology Mean Cell 31.0 27.0 - 33.0 pg [facility] Hemoglobin [facility] Clin Pathology Mean Cell Hgb 33.8 32 - 36 g/dL [facility] Clin Pathology Red Cell Dist 17.4 (H) 11.5 - 14.5 % [facility] Width [facility] Clin Pathology Platelet Count 165 150 - 400 10*3/uL [facility] Pathology Differential Automated Diff [facility] Type [facility] Pathology Neutrophil 47 % [facility] Pathology Lymphocyte 34 % [facility] Clin Pathology Monocyte 9 % [facility] Clin Pathology Eosinophil 9 % [facility] Clin Pathology Basophil 1 % [facility] Clin Pathology Abs Neutrophil 2.33 1.80 - 7.00 10*3/uL [facility] Pathology Abs Lymphocyte 1.66 1.20 - 4.00 10*3/uL [facility] Pathology Abs Monocyte 0.43 0.00 - 0.80 10*3/uL [facility] Pathology Abs Eosinophil 0.43 0.00 - 0.50 10*3/uL [facility] Pathology Abs Basophil 0.02 0.00 - 0.20 10*3/uL [facility] Pathology Nucleated Red 0 0 - 0 /100{WBCs} [facility] Blood Cells [facility] Pathology Specimen EDTA Whole Blood Performing Organization Address City/State/ZIP Code P maxx Number [facility] [address] [place], [place] [address] PATHOLOGY [facility] [address] [place], [place] [address] Clin Pathology documented in this encounter Visit Diagnoses Diagnosis 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 Follo w precautions. Dispose of properly. 11/25/2020 11:04 AM EDT 10 mg 200 mL/hr dexamethasone (DECADRON) 4 MG/ML 10 mg New Bag in sodium chloride 0.9 % 50 mL IVPB 10 mg, Intravenous, Administer over 15 Minutes, Once, On Mon11/25/20 at 1015, For 1 dose, Give prior to chemotherapy 11/25/2020 11:04 AM EDT 50 mg diphenhydrAMINE (BENADRYL) capsule 50 mg Given 50 mg, Oral, Once, On Mon11/25/20 at 1015, For 1 dose, Give prior to chemotherapy. 11/25/2020 11:04 AM EDT 20 mg famotidine (PEPCID) tablet 20 mg Given 20 mg, Oral, Once, On Mon11/25/20 at 1015, For 1 dose, Give 30 minutes prior to chemotherapy. 11/25/2020 12:02 PM EDT 450 mg 180 mL/hr PACLitaxel-protein bound 450 mg IVPB New Bag 450 mg (rounded from 449.8 mg = 260 mg/m2 1.73 m2 Treatment Plan Recorded BSA), Intravenous, Administer over 30 Minutes , Once, On Mon11/25/20 at 1045, For 1 dose, Do not filter. 11/25/2020 11:56 AM EDT 0.25 mg palonosetron (ALOXI) 0.25 MG/5ML Given by IV injection syringe 0.25 mg push 0.25 mg, Intravenous, Once, On Mon11/25/20 at 1015, For 1 dose, Give 30 minutes prior to chemo. 11/25/2020 1:44 PM EDT 6 mg pegfilgrastim (NEULASTA ONPRO) for Given on-body injector kit 6 mg 6 mg, Subcutaneous, Once, On Mon 1 at 1145, For 1 dose, Store in the refrigerator. 11/25/2020 10:30 AM EDT 10 mEq 100 mL/hr potassium chloride 10 mEq in 100 mL IVPB New Bag (premix) 10 mEq, Intravenous, Administer over 60 Minutes, Once, On Mon11/25/20 at 1015, For 1 dose documented in this encounter
--- OUTSIDE RECORDS SUMMARY | 2021-03-23 13:12 | CCD | Continuity of Care Document ---
Author Author Sara PETTIT ANP Organization Unknown Address [address] [place] [address] Phone [phone] Care Team Providers Care Torch Heater Name Role Phone Lorena Portillo AUTM [phone] [place] [facility] AUTM [phone] Shadi Sotelo M.D. AUTM [phone] Lenka Healy M.D. AUTM [phone] Problems Active Problems Provider Date Squamous cell [...] lb BMI (Body Mass Index) 23.7 kg/m2 [place] Body Weight 120 lb Weight 62.597 kg BSA (Body Surface Area) 1.67 m2 02/05/2020 12:45pm BP Systolic 118 mmHg BP Diastolic 78 mmHg Heart Rate 80 /min O2 % BldC Oximetry 96 % Body Temperature 96.8 F Height 64 inches 5'4" Weight 162.00 lb BMI (Body Mass Index) 27.8 kg/m2 [place] Body Weight 120 lb Weight 73.483 kg BSA (Body Surface Area) 1.79 m2 Results Description No Information Available Procedures Description No Information Available Medical Devices Description No Information Available Encounters Description No Information Available Assessments Date Code Description Provider 02/09/2021 G47.33 Obstructive sleep apnea (adult) (pediatric) HUY Benjamin Plan of Treatment Future Appointment(s):* 02/10/2022 11:00 am - HUY Benjamin at [facility] Pulmonary/Thoracic 02/09/2021 - HUY Benjamin* G47.33 Obstructive sleep apnea (adult) (pediatric) * * Follow up:* Follow up in 12 months with compliance report for TU-30 Functional Status Description No Information Available Mental Status Description No Information Available Referrals Description No Information Available
--- OUTSIDE RECORDS SUMMARY | 2021-03-23 13:12 | CCD | Continuity of Care Document ---
Author Author Sara PETTIT ANP Organization Unknown Address [address] [place] [address] Phone [phone] Care Team Providers Care Supervisor Sign [employer] Name Role Phone Lorena Portillo AUTM [phone] [place] N[facility] AUTM [phone] Shadi Sotelo M.D. AUTM [phone] Lenka Healy M.D. AUTM [phone] Problems Active Problems Provider Date Squamous cell [...] lb BMI (Body Mass Index) 23.7 kg/m2 [place] Body Weight 120 lb Weight 62.597 kg BSA (Body Surface Area) 1.67 m2 02/05/2020 12:45pm BP Systolic 118 mmHg BP Diastolic 78 mmHg Heart Rate 80 /min O2 % BldC Oximetry 96 % Body Temperature 96.8 F Height 64 inches 5'4" Weight 162.00 lb BMI (Body Mass Index) 27.8 kg/m2 [place] Body Weight 120 lb Weight 73.483 kg BSA (Body Surface Area) 1.79 m2 Results Description No Information Available Procedures Description No Information Available Medical Devices Description No Information Available Encounters Description No Information Available Assessments Date Code Description Provider 02/09/2021 G47.33 Obstructive sleep apnea (adult) (pediatric) HUY Benjamin Plan of Treatment Future Appointment(s):* 02/10/2022 11:00 am - HUY Benjamin at [facility] Pulmonary/Thoracic 02/09/2021 - HUY Benjamin* G47.33 Obstructive sleep apnea (adult) (pediatric) * * Follow up:* Follow up in 12 months with compliance report for TU-30 Functional Status Description No Information Available Mental Status Description No Information Available Referrals Description No Information Available
--- OUTSIDE RECORDS SUMMARY | 2021-03-23 13:12 | CCD | Continuity of Care Document ---
Author Author Sara PETTIT ANP Organization Unknown Address [address] [place] [address] Phone [phone] Care Team Providers Care Economic Development Specialist Name Role Phone Lorena Portillo AUTM [phone] [place] [facility] AUTM [phone] Shadi Sotelo M.D. AUTM [phone] Lenka Healy M.D. AUTM [phone] Problems Active Problems Provider Date Squamous cell [...] lb BMI (Body Mass Index) 23.7 kg/m2 [place] Body Weight 120 lb Weight 62.597 kg BSA (Body Surface Area) 1.67 m2 02/05/2020 12:45pm BP Systolic 118 mmHg BP Diastolic 78 mmHg Heart Rate 80 /min O2 % BldC Oximetry 96 % Body Temperature 96.8 F Height 64 inches 5'4" Weight 162.00 lb BMI (Body Mass Index) 27.8 kg/m2 [place] Body Weight 120 lb Weight 73.483 kg BSA (Body Surface Area) 1.79 m2 Results Description No Information Available Procedures Description No Information Available Medical Devices Description No Information Available Encounters Description No Information Available Assessments Date Code Description Provider 02/09/2021 G47.33 Obstructive sleep apnea (adult) (pediatric) HUY Benjamin Plan of Treatment Future Appointment(s):* 02/10/2022 11:00 am - HUY Benjamin at [facility] [place] Pulmonary/Thoracic 02/09/2021 - HUY Benjamin* G47.33 Obstructive sleep apnea (adult) (pediatric) * * Follow up:* Follow up in 12 months with compliance report for [facility]-30 Functional Status Description No Information Available Mental Status Description No Information Available Referrals Description No Information Available
--- OUTSIDE RECORDS SUMMARY | 2021-03-23 13:12 | CCD | Continuity of Care Document ---
Author Author Sara PETTIT ANP Organization Unknown Address [address] [place] [address] Phone [phone] Care Team Providers Care Information Clerk Cashier Name Role Phone Lorena Portillo AUTM [phone] [place] [facility] AUTM [phone] Shadi Sotelo M.D. AUTM [phone] Lenka Healy M.D. AUTM [phone] Problems Active Problems Provider Date Squamous cell carcinoma of skin of trunk Marion Guzman Onset: 07/24/2013 Polypoid sinus degeneration Loy Price MD Onset: Dysphagia Loy Pirce MD Onset: 12/23/2013 Obstructive sleep apnea syndrome [...] lb BMI (Body Mass Index) 23.7 kg/m2 [place] Body Weight 120 lb Weight 62.597 kg BSA (Body Surface Area) 1.67 m2 02/05/2020 12:45pm BP Systolic 118 mmHg BP Diastolic 78 mmHg Heart Rate 80 /min O2 % BldC Oximetry 96 % Body Temperature 96.8 F Height 64 inches 5'4" Weight 162.00 lb BMI (Body Mass Index) 27.8 kg/m2 [place] Body Weight 120 lb Weight 73.483 kg BSA (Body Surface Area) 1.79 m2 Results Description No Information Available Procedures Date Code Description Status 02/09/2021 [address]958 Office/Outpatient Established Lo w MDM 20-29 Min Completed Medical Devices Description No Information Available Encounters Type Date Location Provider Dx Diagnosis Office Visit 02/09/2021 1:00p [facility] Pulmonary/Thoracic HUY Blackwell G47.33 Obstructive sleep apnea (adult) (pediatr ic) Assessments Date Code Description Provider 02/09/2021 G47.33 Obstructive sleep apnea (adult) (pediatric) HUY Benjamin Plan of Treatment Future Appointment(s):* 02/10/2022 11:00 am - HUY Benjamin at [facility] Pulmonary/Thoracic 02/09/2021 - HUY Benjamin* G47.33 Obstructive sleep apnea (adult) (pediatric) * * Follow up:* Follow up in 12 months with compliance report for TU-30 Functional Status Description No Information Available Mental Status Description No Information Available Referrals Description No Information Available
--- OUTSIDE RECORDS SUMMARY | 2021-03-23 13:12 | CCD | Summary of Care ---
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 12/25/2020 Office Visit Hematology Oncology [address] [place] [address] Allergies Comments Active Allergy Reactions Severity Noted [...] (Zovirax) herpetic 1 lesions 3-5 times daily Active Ondansetron HCl 8 MG Oral Take 1 tablet 30 tablet 3 Tablet by mouth 1 (ZOFRAN)Indications: every 8 Serous carcinoma of (eight) hours female pelvis as needed for Nausea or Vomiting Active Dexamethasone 4 MG Oral Take 4 mg 4 tablet 1 Tablet (DECADRON) twice a day 1 starting day after chemotherapy for 2 days 01/17/2021 Active Potassium Chloride ER 10 Take 2 60 capsule 3 0 MEQ Oral Capsule Extended capsules by 1 Release (MICRO-K) mouth Two Times Daily documented as of this encounter [...] Signs Reading Time Taken Comments Vital Sign 115/72 12/25/2020 3:40 PM EDT Blood Pressure 76 12/25/2020 3:40 PM EDT Pulse 36.9 C (98.4 F) 12/25/2020 12:06 PM EDT Temperature 16 12/25/2020 12:06 PM EDT Respiratory Rate 98% 12/25/2020 12:06 PM EDT Oxygen Saturation - - Inhaled Oxygen Concentration 62.2 kg (137 lb 3.2 oz) 12/25/2020 11:19 AM EDT Weight - - Height 24.3 12/04/2020 10:29 AM EDT Body Mass Index documented in this encounter Progress Notes * Oliver Gutierrez RN - 12/25/2020 11:15 AM EDT Patient present for Abaxane/Carboplatin. Seen by , ANC 1.3, spoke with Samira mejias RN, luis to treat per team. Port accessed on arrival, flushed, +BR, NS flush line started. Premedicated with Benadryl PO, Pepcid PO, Aloxi IVP, Decadr on IVPB, Emend IVPB. Abraxane infused over 30 minutes, line flushed clear. Car boplatin infused over 30 minutes, line flushed. Port flushed, +BR, heparinized, deaccessed, bandaid applied. Neulasta OnPro kit applied to RUE, chamber full, confirmed blinking green on discharge. Patient d/c'd in stable condition accomp anied by . * Noris Bee MD - 12/25/2020 11:15 AM EDT HEMATOLOGY ONCOLOGY FOLLOW UP VISIT Subjective: Reason for visit: Follow up for the diagnosis of serous carcinoma of the right a dnexa Diagnosis and stage: 1. Carcinoma of right ovary 2. 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 Schwab in [facility], gynecologic onc ologist and recommended for a CAT scan of the chest, omental biopsy July 29, 2020-CT of the chest with contrast showed moderate left-sided pleural effusion, mild right pleural effusion, mediastinal hilar and cardiophrenic lymph adenopathy with bilateral pleural-based nodularities July 30, 2020-omental biopsy showed high-grade serous carcinoma, WT-1 positive, PAX8 positive, p53 and ER positive consistent with high-grade serous carcinoma of adnexal origin on peritoneal region done in [facility] by Dr. Shante gong On August 06, 2020-patient was followed by Dr. Schwab and was recommended to somers ve neoadjuvant intent carboplatin and paclitaxel and she wanted to have it done locally given that she is from [place] August 13, 2020-patient was started on the first cycle of Abraxane, carboplatin wi th Neulasta. She was attempted Taxol however she had an anaphylactic reaction to it and Abraxane was given, carboplatin was dosed at the AUC of 6 Second cycle was done on September 04 Third cycle was done on September 30, 2020October-she had a CT chest abdomen and pelvis which showed mediastinal and h ilar lymphadenopathy with overall improvement and resolution of the large left p leural effusion, mesenteric omental metastatic disease decreasing, decreasing re sidual soft tissue thickening of the dome of the liver and improved abdominal ly mphadenopathy October 26, 2020-she had a debulking surgery with a total abdominal hysterectomy an d bilateral salpingo-oophorectomy with removal of the omental deposits at [facility] and clinic with Dr. Schwab She followed there after with us to complete the adjuvant 3 cycles Adjuvant therapy was started on November 25, 2020 with AUC of 6 for carboplatin and Abraxane 260 mg/m2 And she had a significant event of thrombocytopenia with grade 3 value of 30 whe n she was due on December 18, 2020 and the fifth cycle was deferred Current Treatment: Carboplatin and Abraxane intent is to complete a total of 6 cycles ECOG Performance Status: (1) Restricted in physically strenuous activity, ambula tory and able to do work of light nature Enrollment in research protocol:n/a Oncologic History: Sara Baca is a 65 y.o. 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 Her oncology history as outlined above. Sara feels well. However she has worse 10 days after the chemotherapy and she s eems to recover thereafter fairly well. She does have some nausea and vomiting d uring that time. However she has none currently she falling all feels better. Sh e uses lactulose every day for constipation. Her appetite is good. Past Medical History: She has a past medical history of Asthma, Salcido's esoph javon, Depression, Environmental allergies, GERD (gastroesophageal reflux disease ), Hypercalcemia, Incontinence of urine, Thyroid disease, and Urinary frequency. Past Surgical History: She has a past surgical history that includes Thyroidec bushra, partial (1986); Dilation and curettage of uterus; Sinus surgery (2006); Br east enhancement surgery; Total vaginal hysterectomy; Anterior and posterior vag inal repair w/ sacrospinous ligament suspension; Cystoscopy; Skin surgery; Hyste rectomy; LASIK; and Breast biopsy (01/2018). Family Medical History: Her family history includes COPD in her mother; Cancer in her father; Heart disease in her father; Hypertension in her mother. Social History: She reports that she has never smoked. She has never used smok eless tobacco. She reports current alcohol use. She reports that she does not us e drugs. Allergies: Paclitaxel, Augmentin [amoxicillin-pot clavulanate], and Avelox [moxi floxacin hcl in nacl] Review of Systems Review of Systems Constitutional: Positive for fatigue (first week of chemo and then better therea fter) and unexpected weight change (pretty stable for now). Negative for activit y change, chills, diaphoresis and fever. Respiratory: Negative for cough, shortness of breath and wheezing. Cardiovascular: Negative for chest pain, palpitations and leg swelling. Gastrointestinal: Positive for constipation (takes lactulose every day once ) an d nausea (have to take within the 10 days of chemo and none thereafter). Negativ e for abdominal pain, blood in stool, diarrhea and vomiting. Genitourinary: Negative for hematuria. Musculoskeletal: Negative for back pain and joint swelling. Skin: Negative for pallor and rash. Neurological: Negative for dizziness, light-headedness and numbness. Hematological: Negative for adenopathy. Does not bruise/bleed easily. A complete review of systems was performed and is negative except as per HPI. Objective: PHYSICAL EXAMINATION: Vital signs* Vitals: 12/25/20 1119 BP: 125/74 BP Location: Right arm Patient Position: Sitting Cuff size: Regular Pulse: 77 Resp: 16 Temp: 36.9 C (98.5 F) TempSrc: Oral SpO2: 99% Weight: 62.2 kg (137 lb 3.2 oz) Physical Exam Constitutional: Appearance: Normal appearance. HENT: Head: Normocephalic and atraumatic. Right Ear: Tympanic membrane normal. Left Ear: Tympanic membrane normal. Nose: Nose normal. Mouth/Throat: Mouth: Mucous membranes are moist. Eyes: Extraocular Movements: Extraocular movements intact. Conjunctiva/sclera: Conjunctivae normal. Pupils: Pupils are equal, round, and reactive to light. Cardiovascular: Rate and Rhythm: Normal rate and regular rhythm. Pulses: Normal pulses. Pulmonary: Effort: Pulmonary effort is normal. Breath sounds: Normal breath sounds. Abdominal: General: Abdomen is flat. Bowel sounds are normal. Palpations: Abdomen is soft. Musculoskeletal: General: Normal range of motion. Skin: General: Skin is warm. Capillary Refill: Capillary refill takes less than 2 seconds. Neurological: Mental Status: She is alert. Psychiatric: Mood and Affect: Mood normal. Behavior: Behavior normal. Judgment: Judgment normal. Assessment & Plan: Sara Baca is a 65 y.o. 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 She is a status post 3 cycles of carboplatin and Abraxane and debulking surgery at [facility]. She will continue the ad juvant treatment with carboplatin and Abraxane. This is her fifth cycle. We will be reducing the dose of carboplatin to AUC of 5 keep the Abraxane at 260 mg how ever I discussed with her that pseudothrombocytopenia via continued problem then we will reduce the dose of Abraxane as well. We will do weekly labs for her alfonsoi ng forward. She implies understanding. She will be supported with Neulasta. She will return in 3 weeks. Current status of the disease-being treated with neoadjuvant intent carboplatin and Abraxane stage IV serous adnexal squamous We reviewed the NCCN guidelines with regard to the management of stage IV serous adnexal peritoneal carcinomatosis, and tailored the discussion to the patient's particular situation regarding our recommendations for treatment. - Discussion about social support: Lives with her Sara Baca should return in 3 weeks. Imaging prior to return to clinic?: no Labs on return to clinic? yes Referrals needed? There are no social work or other referral needs at this time Patient's current issues of serous carcinoma adnexa/peritoneum is getting treate d as above and additional work up as mentioned below are pursued. Reviewed elisabet ortega labs, medicines, imaging ( CT, ultrasound). I personally reviewed the films and discussed with radiologist. Informed patient if he develops any problems or issues prior to rtc then he shou donnie give our office a call in addition we have a 24 hour seo consultant service. Patient was agreeable with plan of care. Also patient and patient did ask questions whi ch were answered to their satisfaction and to the best of our knowledge. Noris Bee MD Pager - [phone] Audograph Operatorcustomer assistant Department of Hematology Oncology [facility] 12/25/2020 11:23 AM documented in this encounter Nursing Notes * Samira Mathur RN - 12/25/2020 11:15 AM EDT Patient's treatment plan day deferred from 12/18 to 12/25. Kept orders the same, signed by Noris Bee MD on 12/18/20. This medical technical writer informed Dr. Bee of this c hange and she is ok with this. documented in this encounter Plan of Treatment Care Team Description Date Type Specialty Noris Bee MD [address] [place] [address] [phone] 01/15/2021 Office Visit Hematology and Onco logy Shay Mendiola MD [address] [facility] [place] [address] [phone] Tena Blair, MPH [address] [phone] 02/10/2021 Office Visit Hematology and Onco logy Order Schedule Name Type Priority Associated Diag noses weekly for 6 Occurrences starting 2020 until 06/27/2021 CBC and Differential Lab Routine Carcinoma of right ovary Health Maintenance Due Date Last Done Comments Hepatitis C Screening (B. 1955 [id number]) MMR Vaccines (1 of 1 - 11/23/1956 Standard series) Varicella Vaccines (1 [...] ot Implanted Type Area Manufactur er 01/05/2025 [id number] / / [id number] Port- [place]ign[place] 8fr Sl - [id number] Right: Chest MED COMP Implanted: Qty: 1 on 08/27/2020 by Maximus Pena DO at [facility] documented as of this encounter Procedures Comments Procedure Name Priority Date/Time Associated Diag nosis CBC AND DIFFERENTIAL STAT 12/25/2020 Serous ca rcinoma of 11:01 AM EDT female pelvis CA 125 Routine 12/25/2020 Carcinoma of ri ght ovary 11:01 AM EDT COMPREHENSIVE METABOLIC Routine 12/25/2020 Carcin zhen of right ovary PANEL 11:01 AM EDT documented in this encounter Results * CBC and Differential (12/25/2020 11:01 AM EDT) White Blood 3.3 (L) 4.00 - 10.00 10*3/uL [facility] Red Blood Cell 3.35 (L) 4.10 - 5.30 10*6/uL [facility] te [facility] Clin Pathology Hemoglobin 10.8 (L) 11.5 - 15.5 g/dL [facility] Clin Pathology Hematocrit 31.8 (L) 36.0 - 45.0 % [facility] Clin Pathology Mean Cell 94.9 80.0 - 96.0 fL [facility] Clin Pathology Mean Cell 32.2 27.0 - 33.0 pg [facility] Hemoglobin [facility] Pathology Mean Cell Hgb 33.9 32 - 36 g/dL [facility] Conc [facility] Clin Pathology Red Cell Dist 17.5 (H) 11.5 - 14.5 % [facility] Width [facility] Clin Pathology Platelet Count 168 150 - 400 10*3/uL [facility] Clin Pathology Differential Automated Diff [facility] Type [facility] Pathology Neutrophil 40 % [facility] Lymphocyte 45 % [facility] Monocyte 14 % [facility] Pathology Eosinophil 1 % [facility] Pathology Basophil 0 % [facility] Pathology Abs Neutrophil 1.30 (L) 1.80 - 7.00 10*3/uL [facility] Clin Pathology Abs Lymphocyte 1.45 1.20 - 4.00 10*3/uL [facility] Clin Pathology Abs Monocyte 0.46 0.00 - 0.80 10*3/uL [facility] Clin Pathology Abs Eosinophil 0.04 0.00 - 0.50 10*3/uL [facility] Clin Pathology Abs Basophil 0.01 0.00 - 0.20 10*3/uL [facility] Clin Pathology Nucleated Red 0 0 - 0 /100{WBCs} [facility] Blood Cells [facility] Pathology Specimen EDTA Whole Blood Performing Organization Address City/State/ZIP Code P maxx Number [facility] [address] [place], [place] [address] PATHOLOGY [facility] [address] [place], [place] [address] Clin Pathology * CA 125 (12/25/2020 11:01 AM EDT) CA-125 24 <38 U/mL [facility] Comment: [facility] The CA 125 assay should not be Pathology used as a screening test to detect Cancer. Its use as an aid in the management of Ovarian Cancer has been reported. CA125 values obtained using different methodologies cannot be used interchangeably. This method is manufactured by [employer] and is an electrochemiluminesence immunoassay. Specimen Plasma Performing Organization Address City/[facility]/ZIP Code P maxx Number [facility] [address] [place], [place] [address] PATHOLOGY [facility] [address] [place], [place] [address] Clin Pathology * Comprehensive Metabolic Panel (12/25/2020 11:01 AM EDT) Albumin 4.2 3.5 - 5.2 g/dL [facility] Clin Pathology Bilirubin, 0.3 <1.2 mg/dL [facility] Total [facility] Clin Pathology Calcium 11.4 (H) 8.8 - 10.2 mg/dL [facility] Pathology Chloride 102 98 - 107 mmol/L [facility] Pathology Creatinine 0.61 0.50 - 0.90 mg/dL [facility] Pathology Glucose 103 70 - 140 mg/dL [facility] Pathology Alkaline 72 35 - 104 U/L [facility] Phosphatase [facility] Pathology Potassium 3.7 3.4 - 5.1 mmol/L [facility] Pathology Total Protein 7.2 6.4 - 8.3 g/dL [facility] Pathology Sodium 137 136 - 145 mmol/L [facility] Pathology AST/SGO 16 <32 U/L [facility] Pathology Blood Urea 18 8 - 23 mg/dL [facility] Nitrogen [facility] Pathology Osmolality, Alberto 286 275.0 - 300.0 [facility] mosm/kg [facility] Pathology BUN/Cre Ratio 30 [facility] Pathology Bicarbonate 26 22 - 29 mmol/L [facility] Pathology ALT/SGP 15 <33 U/L [facility] Pathology Anion Gap 9 8 - 15 mmol/L [facility] Clin Pathology GFR Non >90 >60 mL/min/1.73m2 [facility] Med [facility] Clin CDK-EPI Pathology GFR >90 >60 mL/min/1.73m2 [facility] Austrian 2009 Med [facility] Clin CKD-EPI Pathology Specimen Plasma Performing Organization Address City/State/ZIP Code P maxx Number [facility] [address] [place], [place] [address] [address] Clin Pathology documented in this encounter Visit Diagnoses Diagnosis Carcinoma of right ovary - Primary 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 Follo w precautions. Dispose of properly. 12/25/2020 12:33 PM EDT 10 mg 200 mL/hr dexamethasone (DECADRON) 10 mg in sodium New Bag chloride 0.9 % 50 mL IVPB 10 mg, Intravenous, Administer over 15 Minutes, Once, On Mon12/25/20 at 1230, For 1 dose, Give prior to chemotherapy 12/25/2020 12:29 PM EDT 50 mg diphenhydrAMINE (BENADRYL) capsule 50 mg Given 50 mg, Oral, Once, On Mon12/25/20 at 1230, For 1 dose, Give prior to chemotherapy. 12/25/2020 12:28 PM EDT 20 mg famotidine (PEPCID) tablet 20 mg Given 20 mg, Oral, Once, On Mon12/25/20 at 1230, For 1 dose, Give 30 minutes prior to chemotherapy. 12/25/2020 12:58 PM EDT 150 mg 300 mL/hr fosaprepitant dimeglumine (EMEND) 150 mg New Bag in sodium chloride 0.9 % 150 mL infusio n 150 mg, Intravenous, Once, On Mon12/25/20 at 1230, For 1 dose 12/25/2020 1:47 PM EDT 450 mg 180 mL/hr PACLitaxel-protein bound 450 mg IVPB New Bag 450 mg (rounded from 449.8 mg = 260 mg/m2 1.73 m2 Treatment Plan Recorded BSA), Intravenous, Administer over 30 Minutes , Once, On Mon12/25/20 at 1300, For 1 dose, Do not filter. 12/25/2020 12:29 PM EDT 0.25 mg palonosetron (ALOXI) 0.25 MG/5ML New Bag injection syringe 0.25 mg 0.25 mg, Intravenous, Once, On Mon12/25/20 at 1230, For 1 dose, Give 30 minutes prior to chemo. 12/25/2020 3:43 PM EDT 6 mg pegfilgrastim (NEULASTA ONPRO) for Given on-body injector kit 6 mg 6 mg, Subcutaneous, Once, On Mon 1 at 1400, For 1 dose, Store in the refrigerator. documented in this encounter
--- OUTSIDE RECORDS SUMMARY | 2021-03-23 13:12 | CCD | Summary of Care ---
Author Author [facility] Address Unknown Phone Unavailable Care Team Providers Care Aircraft Machinist Name Role Phone Lenka Cordon MD PCP Reason for Visit * Reason Comments Blood Infection platelet count low 7 Encounter Details Care Team Description Date Type Department Anselmo David MD [address] [place] [address] [facility] [place] [address] Thrombocytopenia (Primary Dx) 01/10/2021 Emergency [address] [address] Allergies Comments Active Allergy Reactions Severity Noted Date Amoxicillin-Pot Nausea And 08/06/2012 Clavulanate Vomiting Moxifloxacin Hcl In Nacl Hives 08/06/2012 Paclitaxel (Taxol) Paclitaxel Anaphylaxis High 08/13/2020 documented as of this encounter (statuses as of 01/10/2021) Medications End Date Status Medication Sig Dispensed [...] as of this encounter (statuses as of 01/10/2021) Active Problems Problem Noted Date Thrombocytopenia 01/10/2021 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/12/2020 Cancer Staging: Clinical stage from 10/12: FIGO Stage FOSTER, calculated as Stage IV (cTX, cM1) - Signed by Noris christina MD on 10/12/2020 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 Urinary frequency 01/07/2016 Urinary urgency 01/07/2016 Recurrent UTI 01/01/2016 documented as of this encounter (statuses as of 01/10/2021) Immunizations Name Administration Dates Next Due documented as of this encounter Social History Date Tobacco Use Types Packs/Day Years Used Never Smoker Smokeless Tobacco: Never Used Comments Alcohol Use Standard Drinks/Week Social Yes 0 (1 standard drink = 0.6 o z pure alcohol) Sex Assigned at Date Recorded Not on file Date Recorded COVID-19 Exposure Response 01/10/2021 8:16 AM EDT In the last month, have you been in contact with No / Unsure someone who was confirmed or suspected to have Coronavirus / COVID-19? documented as of this encounter Last Filed Vital Signs Reading Time Taken Comments Vital Sign 124/70 01/10/2021 5:16 PM EDT Blood Pressure 77 01/10/2021 5:16 PM EDT Pulse 37 C (98.6 F) 01/10/2021 5:16 PM EDT Temperature 16 01/10/2021 5:16 PM EDT Respiratory Rate 97% 01/10/2021 5:16 PM EDT Oxygen Saturation - - Inhaled Oxygen Concentration - - Weight - - Height - - Body Mass Index documented in this encounter Discharge Instructions * Instructions* Dread Guerin PA - 01/10/2021 Return to the ER for any worsening of symptoms, including but not limited to, na usea, vomiting, fever, shortness of breath, chest pain, weakness, or if you have any other concerns. You must follow up with your primary provider (or contact [facility]. If you do not have a primary provider in order to establish ca re with a provider who can provide follow-up) in 2 to 3 days to follow up with t his emergency department visits. * Attachments The following attachments cannot be sent through Care Everywhere.* Thrombocytopenia (Greek) documented in this encounter ED Notes * Marisel Mensah RN - 01/10/2021 5:28 PM EDT Patient discharge instructions reviewed. Patient verbalized understanding of inf ormation. * Kevin Burns RN - 01/10/2021 8:37 AM EDT [facility] and advised she needed Platelets and w as only given 1 unit although needed more and was advised they didn't have enoug h to give her at that time, advised to come to ED over weekend to recheck levels and to come back to [place] on Monday for another transfusion prior to Mon next run of Chemo. documented in this encounter Plan of Treatment Care Team Description Date Type Specialty 01/13/2021 Clinical Hematology and Onco logy Support Noris Bee MD [address], [place] [id number] 01/15/2021 Office Visit Hematology and Onco logy Shay Mendiola MD [address] [place] [address] [phone] Tena Blair, MPH [address] [address] 02/10/2021 [facility] Hematology and Onco logy Date/Time Name Type Priority Associated Diag noses 01/10/2021 2:37 PM EDT Prepare platelet pheresis Blood Bank Routine 1 Unit Health Maintenance Due Date Last Done Comments Hepatitis C Screening (B. 1955 4100-1843) MMR Vaccines (1 of 1 - 11/23/1956 [...] ot Implanted Type Area Manufactur er 01/05/2025 [id number] / / [id number] Port- Dignity 8fr Sl - [id number] Right: Chest MED COMP Implanted: Qty: 1 on 08/27/2020 by Maximus Pena DO at [facility] documented as of this encounter Procedures Comments Procedure Name Priority Date/Time Associated Diag nosis PREPARE PLATELET PHERESIS Routine 01/10/2021 2:37 PM EDT CBC AND DIFFERENTIAL Routine 01/10/2021 10:59 AM EDT BASIC METABOLIC PANEL STAT 01/10/2021 10:59 AM EDT documented in this encounter Results * CBC and Differential (01/10/2021 10:59 AM EDT) White Blood 3.8 (L) 4.00 - 10.00 10*3/uL [facility] ate Cell [facility] Clin Pathology Red Blood Cell 2.50 (L) 4.10 - 5.30 10*6/uL [facility] te [facility] Clin Pathology Hemoglobin 8.2 (L) 11.5 - 15.5 g/dL [facility] Clin Pathology Hematocrit 23.0 (L) 36.0 - 45.0 % [facility] Clin Pathology Mean Cell 92.2 80.0 - 96.0 fL [facility] Volume [facility] Clin Pathology Mean Cell 32.9 27.0 - 33.0 pg [facility] Hemoglobin [facility] Clin Pathology Mean Cell Hgb 35.7 32 - 36 g/dL [facility] Conc [facility] Clin Pathology Red Cell Dist 15.8 (H) 11.5 - 14.5 % [facility] Width [facility] Clin Pathology Platelet Count 12 (LL)Comment: Called to and 150 - 400 10*3/u L [facility] read back by Aliyah Goff RN in [facility] Clin EMR at 1153 by 1472 Pathology Differential Automated Diff [facility] Type [facility] Pathology Neutrophil 55 % [facility] Clin Pathology Lymphocyte 37 % [facility] Clin Pathology Monocyte 8 % [facility] Clin Pathology Eosinophil 0 % [facility] Clin Pathology Basophil 0 % [facility] Clin Pathology Abs Neutrophil 2.08 1.80 - 7.00 10*3/uL [facility] Abs Lymphocyte 1.41 1.20 - 4.00 10*3/uL [facility] Clin Pathology Abs Monocyte 0.30 0.00 - 0.80 10*3/uL [facility] Clin Pathology Abs Eosinophil 0.01 0.00 - 0.50 10*3/uL [facility] Clin Pathology Abs Basophil 0.01 0.00 - 0.20 10*3/uL [facility] Clin Pathology Nucleated Red 0 0 - 0 /100{WBCs} [facility] Blood Cells [facility] Pathology Specimen EDTA Whole Blood Performing Organization Address City/State/ZIP Code P maxx Number [facility] [address] [place], [place] [address] PATHOLOGY [facility] [address] [place], [place] [address] Clin Pathology * Basic Metabolic Panel (01/10/2021 10:59 AM EDT) Bicarbonate 26 22 - 29 mmol/L [facility] Clin Pathology Chloride 102 98 - 107 mmol/L [facility] Clin Pathology Creatinine 0.52 0.50 - 0.90 mg/dL [facility]ology Glucose 98 70 - 140 mg/dL [facility] Clin Pathology Potassium 3.7 3.4 - 5.1 mmol/L [facility] Clin Pathology Sodium 137 136 - 145 mmol/L [facility] Pathology Blood Urea 14 8 - 23 mg/dL [facility] Nitrogen [facility] Clin Pathology Anion Gap 9 8 - 15 mmol/L [facility] Clin Pathology Osmolality, Alberto 284 275.0 - 300.0 [facility] mosm/kg [facility] Clin Pathology BUN/Cre Ratio 28 [facility] Clin Pathology Calcium 10.3 (H) 8.8 - 10.2 mg/dL [facility] Clin Pathology GFR Non >90 >60 mL/min/1.73m2 [facility] Clin CDK-EPI Pathology GFR >90 >60 mL/min/1.73m2 [facility] 2008 [facility] CKD-EPI Pathology Specimen Plasma Performing Organization Address City/State/ZIP Code P maxx Number [facility] [address] [place], [place] [address] PATHOLOGY [facility] [address] [place], [place] [address] Clin Pathology documented in this encounter Visit Diagnoses Diagnosis Thrombocytopenia - Primary Thrombocytopenia, unspecified documented in this encounter Administered Medications Action Date Dose Rate Site Medication Order MAR Action 01/10/2021 5:28 PM EDT 500 Units heparin flush (porcine) 100 UNIT/ML Given injection 500 Units 500 Units, Intracatheter, Once, On 01/10/21 at 1730, For 1 dose documented in this encounter Active and Recently Administered Medications Times are shown in EDT. 01/09/2021 01/10/2021 Medication Order 01/08/2021 1728 (Given - Provider: Marisel Mensah, JULIAN) heparin flush (porcine) 100 UNIT/ML injection 500 Units (COMPLETED) 500 Units, Intracatheter, Once, On 01/10/21 at 1730, For 1 dose 1103 (Not Given - Provider: Aliyah Goff RN - Reason: Other) lidocaine (LMX) 4 % cream Topical, Once, On 01/10/21 at 1015, For 1 dose, Apply to port site documented in this encounter
--- OUTSIDE RECORDS SUMMARY | 2021-03-23 13:12 | CCD | Continuity of Care Document ---
Author Author Sara PETTIT AN[facility] Organization Unknown Address [address] [place] [address] Phone [phone] Care Team Providers Care Radioactive Waste Disposal Dispatcher Name Role Phone Lorena Portillo AUTM [phone] [place] N[facility] AUTM [phone] Shadi Sotelo M.D. AUTM [phone] Lenka Healy M.D. AUTM [phone] Problems Active Problems Provider Date Squamous cell [...] lb BMI (Body Mass Index) 23.7 kg/m2 [place] [facility] Weight 120 lb Weight 62.597 kg BSA (Body Surface Area) 1.67 m2 02/05/2020 12:45pm BP Systolic 118 mmHg BP Diastolic 78 mmHg Heart Rate 80 /min O2 % BldC Oximetry 96 % Body Temperature 96.8 F Height 64 inches 5'4" Weight 162.00 lb BMI (Body Mass Index) 27.8 kg/m2 [place] [facility] Weight 120 lb Weight 73.483 kg BSA (Body Surface Area) 1.79 m2 Results Description No Information Available Procedures Date Code Description Status 02/09/2021 33223 Office/Outpatient Established Lo w MDM 20-29 Min Completed Medical Devices Description No Information Available Encounters Type Date Location Provider Dx Diagnosis Office Visit 02/09/2021 1:00p [facility] Pulmonary/Thoracic HUY Blackwell G47.33 Obstructive sleep apnea (adult) (pediatr ic) Assessments Date Code Description Provider 02/09/2021 G47.33 Obstructive sleep apnea (adult) (pediatric) HUY Benjamin Plan of Treatment Future Appointment(s):* 02/10/2022 11:00 am - HUY Benjamin at [facility] Pulmonary/Thoracic 02/09/2021 - HUY Benjamin* G47.33 Obstructive sleep apnea (adult) (pediatric) * * Follow up:* Follow up in 12 months with compliance report for TU-30 Functional Status Description No Information Available Mental Status Description No Information Available Referrals Description No Information Available
--- OUTSIDE RECORDS SUMMARY | 2021-03-23 13:12 | CCD | Continuity of Care Document ---
Author Author Sara PETTIT ANP Organization Unknown Address [address] [place] [address] Phone [phone] Care Team Providers Care Fundraising Consultant Name Role Phone Lorena Portillo AUTM [phone] [place] N.[facility] AUTM [phone] Shadi Sotelo M.D. AUTM [phone] Lenka Healy M.D. AUTM [phone] Problems Active Problems Provider Date Squamous cell [...] lb BMI (Body Mass Index) 23.7 kg/m2 [place] Body Weight 120 lb Weight 62.597 kg BSA (Body Surface Area) 1.67 m2 02/05/2020 12:45pm BP Systolic 118 mmHg BP Diastolic 78 mmHg Heart Rate 80 /min O2 % BldC Oximetry 96 % Body Temperature 96.8 F Height 64 inches 5'4" Weight 162.00 lb BMI (Body Mass Index) 27.8 kg/m2 [place] Body Weight 120 lb Weight 73.483 kg BSA (Body Surface Area) 1.79 m2 Results Description No Information Available Procedures Description No Information Available Medical Devices Description No Information Available Encounters Description No Information Available Assessments Date Code Description Provider 02/09/2021 G47.33 Obstructive sleep apnea (adult) (pediatric) HUY Benjamin Plan of Treatment Future Appointment(s):* 02/10/2022 11:00 am - HUY Benjamin at [facility] Pulmonary/Thoracic 02/09/2021 - HUY Benjamin* G47.33 Obstructive sleep apnea (adult) (pediatric) * * Follow up:* Follow up in 12 months with compliance report for TU-30 Functional Status Description No Information Available Mental Status Description No Information Available Referrals Description No Information Available
--- OUTSIDE RECORDS SUMMARY | 2021-03-23 13:16 | CCD ---
Author Author [facility] Address Unknown Phone Unavailable Care Team Providers Care Conference Center Coordinator Name Role Phone Jorge, L Paulie PATIENT SITTER Unavailable Unavailable Jorge, L Paulie PATIENT SITTER Unavailable Unavailable Jorge, L Paulie PATIENT SITTER Unavailable Unavailable Jorge, L Paulie PATIENT SITTER Unavailable Unavailable Jorge, L Paulie PATIENT SITTER Unavailable Unavailable Jorge, L Paulie PATIENT SITTER Unavailable Unavailable Jorge, L Paulie PATIENT SITTER Unavailable Unavailable Jorge, L Paulie PATIENT SITTER Unavailable Unavailable Jorge, L Paulie PATIENT SITTER Unavailable Unavailable Jorge, L Paulie PATIENT SITTER Unavailable Unavailable Jorge, L Paulie PATIENT SITTER Unavailable Unavailable Jorge, L Paulie PATIENT SITTER Unavailable Unavailable Jorge, L Paulie PATIENT SITTER Unavailable Unavailable Jorge, L Paulie PATIENT SITTER Unavailable Unavailable Jorge, L Paulie PATIENT SITTER Unavailable Unavailable Jorge, L Paulie PATIENT SITTER Unavailable Unavailable Jorge, L Paulie PATIENT SITTER Unavailable Unavailable Jorge, L Paulie PATIENT SITTER Unavailable Unavailable Jorge, L Paulie PATIENT SITTER Unavailable Unavailable Jorge, L Paulie PATIENT SITTER Unavailable Unavailable Jorge, L Paulie PATIENT SITTER Unavailable Unavailable Jorge, L Paulie PATIENT SITTER Unavailable Unavailable Jorge, L Paulie PATIENT SITTER Unavailable Unavailable Jorge, L Paulie PATIENT SITTER Unavailable Unavailable Jorge, L Paulie PATIENT SITTER Unavailable Unavailable SYSTEM IN, NOT IN PROVIDER Unavailable Unavailable SENSKA, C SEBAS PATIENT SITTER Unavailable Unavailable SENSKA, C SEABS PATIENT SITTER Unavailable Unavailable SENSKA, C SEBAS PATIENT SITTER Unavailable Unavailable SENSKA, C SEBAS PATIENT SITTER Unavailable Unavailable SENSKA, C SEBAS PATIENT SITTER Unavailable Unavailable SENSKA, C SEBAS PATIENT SITTER Unavailable Unavailable SENSKA, C SEBAS PATIENT SITTER Unavailable Unavailable SENSKA, C SEBAS PATIENT SITTER Unavailable Unavailable DERX, A JOVAN Unavailable Unavailable Khoa NÚÑEZ MD Unavailable Unavailable Khoa NÚÑEZ MD Unavailable Unavailable Khoa NÚÑEZ MD Unavailable Unavailable Khoa NÚÑEZ MD Unavailable Unavailable Khoa NÚÑEZ MD Unavailable Unavailable Khoa NÚÑEZ MD Unavailable Unavailable Khoa NÚÑEZ MD Unavailable Unavailable Khoa NÚÑEZ MD Unavailable Unavailable Khoa NÚÑEZ MD Unavailable Unavailable Khoa NÚÑEZ MD Unavailable Unavailable Khoa NÚÑEZ MD Unavailable Unavailable Khoa NÚÑEZ MD Unavailable Unavailable Khoa NÚÑEZ MD Unavailable Unavailable Khoa NÚÑEZ MD Unavailable Unavailable Khoa NÚÑEZ MD Unavailable Unavailable Khoa NÚÑEZ MD Unavailable Unavailable Khoa NÚÑEZ MD Unavailable Unavailable Khoa NÚÑEZ MD Unavailable Unavailable Khoa NÚÑEZ MD Unavailable Unavailable Khoa NÚÑEZ MD Unavailable Unavailable Khoa NÚÑEZ MD Unavailable Unavailable Khoa NÚÑEZ MD Unavailable Unavailable Khoa NÚÑEZ MD Unavailable Unavailable Khoa NÚÑEZ MD Unavailable Unavailable Khoa NÚÑEZ MD Unavailable Unavailable Khoa NÚÑEZ MD Unavailable Unavailable Khoa NÚÑEZ MD Unavailable Unavailable Khoa NÚÑEZ MD Unavailable Unavailable Khoa NÚÑEZ MD Unavailable Unavailable Khoa NÚÑEZ MD Unavailable Unavailable Khoa NÚÑEZ MD Unavailable Unavailable Khoa NÚÑEZ MD Unavailable Unavailable Khoa NÚÑEZ MD Unavailable Unavailable Khoa NÚÑEZ MD Unavailable Unavailable Khoa NÚÑEZ MD Unavailable Unavailable Khoa NÚÑEZ MD Unavailable Unavailable Khoa NÚÑEZ MD Unavailable Unavailable Khoa NÚÑEZ MD Unavailable Unavailable Khoa NÚÑEZ MD Unavailable Unavailable Khoa NÚÑEZ MD Unavailable Unavailable Khoa NÚÑEZ MD Unavailable Unavailable Khoa NÚÑEZ MD Unavailable Unavailable Khoa NÚÑEZ MD Unavailable Unavailable Khoa NÚÑEZ MD Unavailable Unavailable Khoa NÚÑEZ MD Unavailable Unavailable Khoa NÚÑEZ MD Unavailable Unavailable Khoa NÚÑEZ MD Unavailable Unavailable Khoa NÚÑEZ MD Unavailable Unavailable Khoa NÚÑEZ MD Unavailable Unavailable Khoa NÚÑEZ MD Unavailable Unavailable Khoa NÚÑEZ MD Unavailable Unavailable Khoa NÚÑEZ MD Unavailable Unavailable Khoa NÚÑEZ MD Unavailable Unavailable Khoa NÚÑEZ MD Unavailable Unavailable Khoa NÚÑEZ MD Unavailable Unavailable Khoa NÚÑEZ MD Unavailable Unavailable Khoa NÚÑEZ MD Unavailable Unavailable Khoa NÚÑEZ MD Unavailable Unavailable Khoa NÚÑEZ MD Unavailable Unavailable Khoa NÚÑEZ MD Unavailable Unavailable Khoa NÚÑEZ MD Unavailable Unavailable Khoa NÚÑEZ MD Unavailable Unavailable Khoa NÚÑEZ MD Unavailable Unavailable Khoa NÚÑEZ MD Unavailable Unavailable Khoa NÚÑEZ MD Unavailable Unavailable Khoa NÚÑEZ MD Unavailable Unavailable WILTON, Khoa AGEE MD Unavailable Unavailable WILTON, H ANUEL WELDON Unavailable Unavailable Khoa NÚÑEZ MD Unavailable Unavailable Khoa NÚÑEZ MD Unavailable Unavailable Khoa NÚÑEZ MD Unavailable Unavailable Khoa NÚÑEZ MD Unavailable Unavailable WILTON, Khoa AGEE MD Unavailable Unavailable Khoa NÚÑEZ MD Unavailable Unavailable Khoa NÚÑEZ MD Unavailable Unavailable Khoa NÚÑEZ MD Unavailable Unavailable Khoa NÚÑEZ MD Unavailable Unavailable Nisha LEÓN Unavailable Unavailable Jayme Winston Unavailable Unavailable PIYUSH PAZ Unavailable Unavailable Suzie VINSON Unavailable Unavailable Sophia MATTA MD Unavailable Unavailable MATTASophia DAWKINS MD Unavailable Unavailable MATTASophia DAWKINS MD Unavailable Unavailable MATTASophia DAWKINS MD Unavailable Unavailable MATTASophia DAWKINS MD Unavailable Unavailable MATTASophia DAWKINS MD Unavailable Unavailable MATTASophia DAWKINS MD Unavailable Unavailable Sophia MATTA MD Unavailable Unavailable MATTASophia DAWKINS MD Unavailable Unavailable Sophia MATTA MD Unavailable Unavailable MATTASophia DAWKINS MD Unavailable Unavailable MATTASophia DAWKINS MD Unavailable Unavailable MATTASophia DAWKINS MD Unavailable Unavailable MATTASophia DAWKINS MD Unavailable Unavailable MATTASophia DAWKINS MD Unavailable Unavailable MATTASophia DAWKINS MD Unavailable Unavailable MATTASophia DAWKINS MD Unavailable Unavailable MATTASophia DAKWINS MD Unavailable Unavailable MATTASophia DAWKINS MD Unavailable Unavailable HARINDER HOOKS MD Unavailable Unavailable HARINDER HOOKS MD Unavailable Unavailable HARINDER HOOKS MD Unavailable Unavailable HARINDER HOOKS MD Unavailable Unavailable HARINDER HOOKS MD Unavailable Unavailable HARINDER HOOKS MD Unavailable Unavailable HARINDER HOOKS MD Unavailable Unavailable HARINDER HOOKS MD Unavailable Unavailable HARINDER HOOKS MD Unavailable Unavailable HARINDER HOOKS MD Unavailable Unavailable HARINDER HOOKS MD Unavailable Unavailable HARINDER HOOKS MD Unavailable Unavailable HARINDER HOOKS MD Unavailable Unavailable HARINDER HOOKS MD Unavailable Unavailable HARINDER HOOKS MD Unavailable Unavailable HARINDER HOOKS MD Unavailable Unavailable JAWED, MOHAMMED MD Unavailable Unavailable HARINDER HOOKS MD Unavailable Unavailable HARINDER HOOKS MD Unavailable Unavailable Gerson, F Janelle MD Unavailable Unavailable Gerson, F Janelle MD Unavailable Unavailable Gerson, F Janelle MD Unavailable Unavailable Gerson, F Janelle MD Unavailable Unavailable Gerson, F Janelle MD Unavailable Unavailable Gerson, F Janelle MD Unavailable Unavailable Gerson, F Janelle MD Unavailable Unavailable Gerson, F Janelle MD Unavailable Unavailable Gerson, F Janelle MD Unavailable Unavailable Gerson, F Janelle MD Unavailable Unavailable Gerson, F Janelle MD Unavailable Unavailable Gerson, F Janelle MD Unavailable Unavailable Gerson, F Janelle MD Unavailable Unavailable Gerson, F Janelle MD Unavailable Unavailable Gerson, F Janelle MD Unavailable Unavailable Gerson, F Janelle MD Unavailable Unavailable Gerson, F Janelle MD Unavailable Unavailable Gerson, F Janelle MD Unavailable Unavailable Gerson, F Janelle MD Unavailable Unavailable Gerson, F Janelle MD Unavailable Unavailable Gerson, F Janelle MD Unavailable Unavailable Gerson, F Janelle MD Unavailable Unavailable Gerson, F Janelle MD Unavailable Unavailable Gerson, F Janelle MD Unavailable Unavailable Gerson, F Janelle MD Unavailable Unavailable Gerson, F Janelle MD Unavailable Unavailable Gerson, F Janelle MD Unavailable Unavailable Gerson, F Janelle MD Unavailable Unavailable Gerson, F Janelle MD Unavailable Unavailable Gerson, F Janelle MD Unavailable Unavailable Gerson, F Janelle MD Unavailable Unavailable Gerson, F Janelle MD Unavailable Unavailable Gerson, F Janelle MD Unavailable Unavailable Gerson, F Janelle MD Unavailable Unavailable Gerson, F Janelle MD Unavailable Unavailable Gerson, F Janelle MD Unavailable Unavailable Gerson, F Janelle MD Unavailable Unavailable Gerson, F Janelle MD Unavailable Unavailable Gerson, F Janelle MD Unavailable Unavailable Gerson, F Janelle MD Unavailable Unavailable Gerson, F Janelle MD Unavailable Unavailable Gerson, F Janelle MD Unavailable Unavailable Gerson, F Janelle MD Unavailable Unavailable Gerson, F Janelle MD Unavailable Unavailable Gerson, F Janelle MD Unavailable Unavailable Gerson, F Janelle MD Unavailable Unavailable Gerson, F Janelle MD Unavailable Unavailable Gerson, F Janelle MD Unavailable Unavailable Gerson, F Janelle MD Unavailable Unavailable Gerson, F Janelle MD Unavailable Unavailable Gerson, F Janelle MD Unavailable Unavailable Gerson, F Janelle MD Unavailable Unavailable Gerson, F Janelle MD Unavailable Unavailable Payam Nieto MD Unavailable Unavailable Gerson, F Janelle WELDON Unavailable Unavailable Gerson F Janelle WELDON Unavailable Unavailable Payam Nieto MD Unavailable Unavailable Gerson F Janelle WELDON Unavailable Unavailable Gerson F Janelle WELDON Unavailable Unavailable Gerson F Janelle WELDON Unavailable Unavailable Gerson, F Janelle WELDON Unavailable Unavailable Harpreet, Prosper Unavailable Unavailable Harpreet, Prosper Unavailable Unavailable Harpreet, Prosper Unavailable Unavailable Harpreet, Prosper Unavailable Unavailable Harpreet, Prosper Unavailable Unavailable Harpreet, Prosper Unavailable Unavailable Harpreet, Prosper Unavailable Unavailable Harpreet, Prosper Unavailable Unavailable Harpreet, Prosper Unavailable Unavailable Harpreet, Prosper Unavailable Unavailable Harpreet, Prosper Unavailable Unavailable Harpreet, Prosper Unavailable Unavailable Harpreet, Prosper Unavailable Unavailable Harpreet, Prosper Unavailable Unavailable Harpreet, Prosper Unavailable Unavailable Khoa NÚÑEZ MD Unavailable Unavailable Khoa NÚÑEZ MD Unavailable Unavailable Khoa NÚÑEZ MD Unavailable Unavailable Khoa NÚÑEZ MD Unavailable Unavailable Khoa NÚÑEZ MD Unavailable Unavailable Khoa NÚÑEZ MD Unavailable Unavailable Khoa NÚÑEZ MD Unavailable Unavailable Khoa NÚÑEZ MD Unavailable Unavailable Khoa NÚÑEZ MD Unavailable Unavailable Khoa NÚÑEZ MD Unavailable Unavailable Khoa NÚÑEZ MD Unavailable Unavailable Khoa NÚÑEZ MD Unavailable Unavailable Khoa NÚÑEZ MD Unavailable Unavailable Khoa NÚÑEZ MD Unavailable Unavailable Khoa NÚÑEZ MD Unavailable Unavailable Khoa NÚÑEZ MD Unavailable Unavailable Khoa NÚÑEZ MD Unavailable Unavailable Khoa NÚÑEZ MD Unavailable Unavailable Khoa NÚÑEZ MD Unavailable Unavailable Khoa NÚÑEZ MD Unavailable Unavailable Khoa NÚÑEZ MD Unavailable Unavailable Khoa NÚÑEZ MD Unavailable Unavailable Khoa NÚÑEZ MD Unavailable Unavailable Khoa NÚÑEZ MD Unavailable Unavailable Khoa NÚÑEZ MD Unavailable Unavailable Khoa NÚÑEZ MD Unavailable Unavailable Khoa NÚÑEZ MD Unavailable Unavailable Khoa NÚÑEZ MD Unavailable Unavailable Khoa NÚÑEZ MD Unavailable Unavailable Khoa NÚÑEZ MD Unavailable Unavailable Khoa NÑÚEZ MD Unavailable Unavailable Khoa NÚÑEZ MD Unavailable Unavailable Khoa NÚÑEZ MD Unavailable Unavailable Khoa NÚÑEZ MD Unavailable Unavailable Khoa NÚÑEZ MD Unavailable Unavailable Khoa NÚÑEZ MD Unavailable Unavailable Khoa NÚÑEZ MD Unavailable Unavailable Khoa NÚÑEZ MD Unavailable Unavailable Khoa NÚÑEZ MD Unavailable Unavailable Khoa NÚÑEZ MD Unavailable Unavailable Khoa NÚÑEZ MD Unavailable Unavailable Khoa NÚÑEZ MD Unavailable Unavailable Khoa NÚÑEZ MD Unavailable Unavailable Khoa NÚÑEZ MD Unavailable Unavailable Khoa NÚÑEZ MD Unavailable Unavailable WILTON, H ANUEL WELDON Unavailable Unavailable WILTON, H ANUEL WELDON Unavailable Unavailable WILTON, H ANUEL MD Unavailable Unavailable WILTON, H ANUEL MD Unavailable Unavailable WILTON, H ANUEL MD Unavailable Unavailable WILTON, H ANUEL MD Unavailable Unavailable WILTON, H ANUEL MD Unavailable Unavailable WILTON, H ANUEL MD Unavailable Unavailable WILTON, H ANUEL MD Unavailable Unavailable WILTON, H ANUEL MD Unavailable Unavailable WILTON, H ANUEL MD Unavailable Unavailable WILTON, H ANUEL MD Unavailable Unavailable WILTON, H ANUEL MD Unavailable Unavailable WILTON, H ANUEL MD Unavailable Unavailable WILTON, H ANUEL MD Unavailable Unavailable WILTON, H ANUEL MD Unavailable Unavailable WILTON, H ANUEL MD Unavailable Unavailable WILTON, H ANUEL MD Unavailable Unavailable WILTON, H ANUEL MD Unavailable Unavailable WILTON, H ANUEL MD Unavailable Unavailable WILTON, H ANUEL MD Unavailable Unavailable WILTON, H ANUEL MD Unavailable Unavailable WILTON, H ANUEL MD Unavailable Unavailable WILTON, H ANUEL MD Unavailable Unavailable WILTON, H ANUEL MD Unavailable Unavailable WILTON, H ANUEL MD Unavailable Unavailable WILTON, H ANUEL MD Unavailable Unavailable WILTON, H ANUEL MD Unavailable Unavailable WILTON, H ANUEL MD Unavailable Unavailable WILTON, H ANUEL MD Unavailable Unavailable WILTON, H ANUEL MD Unavailable Unavailable WILTON, H ANUEL WELDON Unavailable Unavailable ED, TEST DEFAULT Unavailable Unavailable Steckel, M Joyce RPA-C Unavailable Unavailable Steckel, M Joyce RPA-C Unavailable Unavailable Steckel, M Joyce RPA-C Unavailable Unavailable Steckel, M Joyce RPA-C Unavailable Unavailable Steckel, M Joyce RPA-C Unavailable Unavailable Steckel, M Joyce RPA-C Unavailable Unavailable Steckel, M Joyce RPA-C Unavailable Unavailable Steckel, M Joyce RPA-C Unavailable Unavailable Steckel, M Joyce RPA-C Unavailable Unavailable Steckel, M Joyce RPA-C Unavailable Unavailable Steckel, M Joyce RPA-C Unavailable Unavailable Steckel, M Joyce RPA-C Unavailable Unavailable Steckel, M Joyce RPA-C Unavailable Unavailable Steckel, M Joyce RPA-C Unavailable Unavailable Steckel, M Joyce RPA-C Unavailable Unavailable Steckel, M Joyce RPA-C Unavailable Unavailable Steckel, M Joyce RPA-C Unavailable Unavailable Steckel, M Joyce RPA-C Unavailable Unavailable Steckel, M Joyce RPA-C Unavailable Unavailable Steckel, M Joyce RPA-C Unavailable Unavailable Steckel, M Joyce RPA-C Unavailable Unavailable Steckel, M Joyce RPA-C Unavailable Unavailable Steckel, M Joyce RPA-C Unavailable Unavailable Steckel, M Joyce RPA-C Unavailable Unavailable Steckel, M Joyce RPA-C Unavailable Unavailable Rossy, Kim Madsen MPH Unavailable Unavailable Castleton, Kim Madsen MPH Unavailable Unavailable Rossy, Kim Madsen MPH Unavailable Unavailable Rossy, Kim Madsen MPH Unavailable Unavailable Castleton, Kim Madsen MPH Unavailable Unavailable MUJO, TRISHA Unavailable Unavailable KAYKAY, JETT Unavailable Unavailable SILVA, RINKI Unavailable Unavailable SILVA, RINKI Unavailable Unavailable SILVA, RINKI Unavailable Unavailable SILVA, RINKI Unavailable Unavailable SILVA, RINKI Unavailable Unavailable SILVA, RINKI Unavailable Unavailable SILVA, RINKI Unavailable Unavailable SILVA, RINKI Unavailable Unavailable SILVA, RINKI Unavailable Unavailable SILVA, RINKI Unavailable Unavailable SILVA, RINKI Unavailable Unavailable SILVA, RINKI Unavailable Unavailable SILVA, RINKI Unavailable Unavailable SILVA, RINKI Unavailable Unavailable SILVA, RINKI Unavailable Unavailable SILVA, RINKI Unavailable Unavailable SILVA, RINKI Unavailable Unavailable SILVA, RINKI Unavailable Unavailable SILVA, RINKI Unavailable Unavailable SILVA, RINKI Unavailable Unavailable SILVA, RINKI Unavailable Unavailable SILVA, RINKI Unavailable Unavailable SILVA, RINKI Unavailable Unavailable SILVA, RINKI Unavailable Unavailable SILVA, RINKI Unavailable Unavailable SILVA, RINKI Unavailable Unavailable SILVA, RINKI Unavailable Unavailable SILVA, RINKI Unavailable Unavailable SILVA, RINKI Unavailable Unavailable SILVA, RINKI Unavailable Unavailable SILVA, RINKI Unavailable Unavailable SILVA, RINKI Unavailable Unavailable SILVA, RINKI Unavailable Unavailable SILVA, RINKI Unavailable Unavailable SILVA, RINKI Unavailable Unavailable SILVA, RINKI Unavailable Unavailable SILVA, RINKI Unavailable Unavailable SILVA, RINKI Unavailable Unavailable SILVA, RINKI Unavailable Unavailable SILVA, RINKI Unavailable Unavailable SILVA, RINKI Unavailable Unavailable SILVA, RINKI Unavailable Unavailable SILVA, RINKI Unavailable Unavailable SILVA, RINKI Unavailable Unavailable SILVA, RINKI Unavailable Unavailable SILVA, RINKI Unavailable Unavailable SILVA, RINKI Unavailable Unavailable SILVA, RINKI Unavailable Unavailable SILVA, RINKI Unavailable Unavailable SILVA, RINKI Unavailable Unavailable SILVA, RINKI Unavailable Unavailable SILVA, RINKI Unavailable Unavailable SILVA, RINKI Unavailable Unavailable SILVA, RINKI Unavailable Unavailable SILVA, RINKI Unavailable Unavailable SILVA, RINKI Unavailable Unavailable SILVA, RINKI Unavailable Unavailable SILVA, RINKI Unavailable Unavailable SILVA, RINKI Unavailable Unavailable SILVA, RINKI Unavailable Unavailable SILVA, RINKI Unavailable Unavailable SILVA, RINKI Unavailable Unavailable SILVA, RINKI Unavailable Unavailable SILVA, RINKI Unavailable Unavailable SILVA, RINKI Unavailable Unavailable SILVA, RINKI Unavailable Unavailable SILVA, RINKI Unavailable Unavailable SILVA, RINKI Unavailable Unavailable SILVA, RINKI Unavailable Unavailable SILVA, RINKI Unavailable Unavailable SILVA, RINKI Unavailable Unavailable SILVA, RINKI Unavailable Unavailable Edgar OVERTON Unavailable Unavailable GENDZILEON, Nisha DRUMMOND MD Unavailable Unavailable GENDZILEON, Nisha DRUMMOND MD Unavailable Unavailable GENDZILEON, Nisha DRUMMOND MD Unavailable Unavailable GENDZILEON, Nisha DRUMMOND MD Unavailable Unavailable GENDZILEON, Nisha DRUMMOND MD Unavailable Unavailable GENDZILEON, Nisha DRUMMOND MD Unavailable Unavailable GENDZILEON, Nisha DRUMMOND MD Unavailable Unavailable GENDZILEON, Nisha DRUMMOND MD Unavailable Unavailable GENDZILEON, Nisha DRUMMOND MD Unavailable Unavailable GENDZILEON, Nisha DRUMMOND MD Unavailable Unavailable GENDZILEON, Nisha DRUMMOND MD Unavailable Unavailable GENDZILEON, Nisha DRUMMOND MD Unavailable Unavailable GENDZILEON, Nisha DRUMMOND MD Unavailable Unavailable GENDZILEON, Nisha DRUMMOND MD Unavailable Unavailable GENANDREW, Nisha DRUMMOND MD Unavailable Unavailable GENDZILEON, Nisha DRUMMOND MD Unavailable Unavailable GENDZILEON, Nisha DRUMMOND MD Unavailable Unavailable GENDELEAZAR, Nisha DRUMMOND MD Unavailable Unavailable GENDZILEON, Nisha DRUMMOND MD Unavailable Unavailable GENDZILEON, Nisha DRUMMOND MD Unavailable Unavailable GENDZILEON, Nisha DRUMMOND MD Unavailable Unavailable GENANDREW, Nisha DRUMMOND MD Unavailable Unavailable GENDZILEON, Nisha DRUMMOND MD Unavailable Unavailable GENDZILEON, Nisha DRUMMOND MD Unavailable Unavailable GENDZILEON, Nisha DRUMMOND MD Unavailable Unavailable GENDZILEON, Nisha DRUMMOND MD Unavailable Unavailable GENDZILEON, Nisha DRUMMOND MD Unavailable Unavailable GENDZILEON, Nisha DRUMMOND MD Unavailable Unavailable GENDZINisha QUINTERO MD Unavailable Unavailable GENDZILEON, Nisha DRUMMOND MD Unavailable Unavailable GENDZILEON, Nisha DRUMMOND MD Unavailable Unavailable GENDZILEON, Nisha DRUMMOND MD Unavailable Unavailable GENDZILEON, Nisha DRUMMOND MD Unavailable Unavailable GENDZILEON, Nisha DRUMMOND MD Unavailable Unavailable GENDZILEON, Nisha DRUMMOND MD Unavailable Unavailable GENDZILEON, Nisha DRUMMOND MD Unavailable Unavailable GENDZILEON, Nisha DRUMMOND MD Unavailable Unavailable GENDZILEON, Nisha DRUMMOND MD Unavailable Unavailable GENDZILEON, Nisha DRUMMOND MD Unavailable Unavailable GENDZILEON, Nisha DRUMMOND MD Unavailable Unavailable GENDZILEON, Nisha DRUMMOND MD Unavailable Unavailable GENDZILEON, Nisha DRUMMOND MD Unavailable Unavailable GENDZILEON, Nisha DRUMMOND MD Unavailable Unavailable GENDZILEON, Nisha DRUMMOND MD Unavailable Unavailable GENDZILEON, Nisha DRUMMOND MD Unavailable Unavailable GENDZILEON, Nisha DRUMMOND MD Unavailable Unavailable GENDZILEON, Nisha DRUMMOND MD Unavailable Unavailable GENDZILEON, Nisha DRUMMOND MD Unavailable Unavailable GENDZILEON, Nisha DRUMMOND MD Unavailable Unavailable GENDELEAZAR, Nisha DRUMMOND MD Unavailable Unavailable GENDZILEON, Nisha DRUMMOND MD Unavailable Unavailable GENDZILEON, Nisha DRUMMOND MD Unavailable Unavailable GENDZILEON, Nisha DRUMMOND MD Unavailable Unavailable GENDELEAZAR, Nisha DRUMMOND MD Unavailable Unavailable GENDELEAZAR, Nisha DRUMMOND MD Unavailable Unavailable GENDELEAZAR, Nisha DRUMMOND MD Unavailable Unavailable GENDZINisha QUINTERO MD Unavailable Unavailable GENDZINisha QUINTERO MD Unavailable Unavailable GENDZINisha QUINTERO MD Unavailable Unavailable GENDELEAZAR, Nisha DRUMMOND MD Unavailable Unavailable GENDZILEON, Nisha DRUMMOND MD Unavailable Unavailable GENDZILEON, Nisha DRUMMOND MD Unavailable Unavailable GENDZINisha QUINTERO MD Unavailable Unavailable GENDZILEON, Nisha DRUMMOND MD Unavailable Unavailable GENDZINisha QUINTERO MD Unavailable Unavailable GENDZILEON, Nisha DRUMMOND MD Unavailable Unavailable GENDZINisha QUINTERO MD Unavailable Unavailable GENNisha MORALES MD Unavailable Unavailable GENNisha MORALES MD Unavailable Unavailable GENNisha MORALES MD Unavailable Unavailable GENDZINisha QUINTERO MD Unavailable Unavailable GENNisha MORALES MD Unavailable Unavailable GENNisha MORALES MD Unavailable Unavailable GENNisha MORALES MD Unavailable Unavailable GENNisha MORALES MD Unavailable Unavailable GENNisha MORALES MD Unavailable Unavailable GENNisha MORALES MD Unavailable Unavailable GENNisha MORALES MD Unavailable Unavailable Nisha MONK MD Unavailable Unavailable Nisha MONK MD Unavailable Unavailable Nisha MONK MD Unavailable Unavailable Nisha MONK MD Unavailable Unavailable Nisha MONK MD Unavailable Unavailable Nisha MONK MD Unavailable Unavailable Nisha MONK MD Unavailable Unavailable Nisha MONK MD Unavailable Unavailable Berny MONTANO Unavailable Unavailable Edgar ORTIZ RN Unavailable Unavailable Everardo Cordon MD Unavailable Unavailable Everardo Cordon MD Unavailable Unavailable Everardo Cordon MD Unavailable Unavailable Everardo Cordon MD Unavailable Unavailable Everardo Cordon MD Unavailable Unavailable Everardo Cordon MD Unavailable Unavailable Everardo Cordon MD Unavailable Unavailable Everardo Cordon MD Unavailable Unavailable Everardo Cordon MD Unavailable Unavailable Everardo Cordon MD Unavailable Unavailable Everardo Cordon MD Unavailable Unavailable Everardo Cordon MD Unavailable Unavailable Eevrardo Cordon MD Unavailable Unavailable Everardo Cordon MD Unavailable Unavailable Everardo Cordon MD Unavailable Unavailable Everardo Cordon MD Unavailable Unavailable Everardo Cordon MD Unavailable Unavailable Everardo Cordon MD Unavailable Unavailable Everardo Cordon MD Unavailable Unavailable Everardo Cordon MD Unavailable Unavailable Everardo Cordon MD Unavailable Unavailable Everardo Cordon MD Unavailable Unavailable Everardo Cordon MD Unavailable Unavailable NerisEverardo MD Unavailable Unavailable NerisEverardo MD Unavailable Unavailable NerisEverardo MD Unavailable Unavailable NerisEverardo MD Unavailable Unavailable NerisEverardo MD Unavailable Unavailable NerisEverardo MD Unavailable Unavailable NerisEverardo MD Unavailable Unavailable NerisEverardo MD Unavailable Unavailable NerisEverardo MD Unavailable Unavailable NerisEverardo mccall MD Unavailable Unavailable NerisEverardo MD Unavailable Unavailable NerisEverardo MD Unavailable Unavailable NerisEverardo MD Unavailable Unavailable NerisEverardo MD Unavailable Unavailable NerisEverardo MD Unavailable Unavailable NerisEverardo MD Unavailable Unavailable NerisEverardo MD Unavailable Unavailable NerisEverardo MD Unavailable Unavailable NerisEverardo MD Unavailable Unavailable NerisEverardo azul MD Unavailable Unavailable Everardo Cordon MD Unavailable Unavailable Everardo Cordon MD Unavailable Unavailable NerisEverardo mccall MD Unavailable Unavailable Everardo Cordon MD Unavailable Unavailable Everardo Cordon MD Unavailable Unavailable Everardo Cordon MD Unavailable Unavailable Everardo Cordon MD Unavailable Unavailable Everardo Cordon MD Unavailable Unavailable Everardo Corodn MD Unavailable Unavailable Everardo Cordon MD Unavailable Unavailable Everardo Cordon MD Unavailable Unavailable Everardo Cordon MD Unavailable Unavailable Everardo Cordon MD Unavailable Unavailable Everardo Cordon MD Unavailable Unavailable Everardo Cordon MD Unavailable Unavailable Everardo Cordon MD Unavailable Unavailable Everardo Cordon MD Unavailable Unavailable Everardo Cordon MD Unavailable Unavailable Everardo Cordon MD Unavailable Unavailable Everardo Cordon MD Unavailable Unavailable Everardo Cordon MD Unavailable Unavailable Everardo Cordon MD Unavailable Unavailable NerisEverardo mccall MD Unavailable Unavailable Everardo Cordon MD Unavailable Unavailable Everardo Cordon MD Unavailable Unavailable Everardo Cordon MD Unavailable Unavailable Everardo Cordon MD Unavailable Unavailable Everardo Cordon MD Unavailable Unavailable Everardo Cordon MD Unavailable Unavailable NerisEverardo mccall MD Unavailable Unavailable Neris M Lenka MD Unavailable Unavailable Everardo Cordon MD Unavailable Unavailable Everardo Cordon MD Unavailable Unavailable Everardo Cordon MD Unavailable Unavailable Everardo Cordon MD Unavailable Unavailable Everardo Cordon MD Unavailable Unavailable Everardo Cordon MD Unavailable Unavailable Everardo Cordon MD Unavailable Unavailable Everardo Cordon MD Unavailable Unavailable Everardo Cordon MD Unavailable Unavailable Everardo Cordon MD Unavailable Unavailable Simione-Albino, Allison PA Unavailable Unavailable Simione-Albino, Allison PA Unavailable Unavailable Simione-Albino, Allison PA Unavailable Unavailable Simione-Albino, Allison PA Unavailable Unavailable Simione-Albino, Allison PA Unavailable Unavailable Simione-Albino, Allison PA Unavailable Unavailable Simione-Albino, Allison PA Unavailable Unavailable Simione-Albino, Allison PA Unavailable Unavailable Simione-Albino, Allison PA Unavailable Unavailable Simione-Albino, Allison PA Unavailable Unavailable Simione-Albino, Allison PA Unavailable Unavailable Simione-Albino, Allison PA Unavailable Unavailable Simione-Albino, Allison PA Unavailable Unavailable Simione-Albino, Allison PA Unavailable Unavailable Simione-Albino, Allison PA Unavailable Unavailable Simione-Albino, Allison PA Unavailable Unavailable Simione-Albino, Allison PA Unavailable Unavailable Simione-Albino, Allison PA Unavailable Unavailable Simione-Albino, Allison PA Unavailable Unavailable Simione-Albino, Allison PA Unavailable Unavailable Simione-Albino, Allison PA Unavailable Unavailable Simione-Albino, Allison PA Unavailable Unavailable Simione-Albino, Allison PA Unavailable Unavailable Simione-Albino, Allison PA Unavailable Unavailable Simione-Albino, Allison PA Unavailable Unavailable Simione-Albino, Allison PA Unavailable Unavailable Simione-Albino, Allison PA Unavailable Unavailable Simione-Albino, Allison PA Unavailable Unavailable Simione-Albino, Allison PA Unavailable Unavailable Simione-Albino, Allison PA Unavailable Unavailable Simione-Albino, Allison PA Unavailable Unavailable Simione-Albino, Allison PA Unavailable Unavailable Simione-Albino, Allison PA Unavailable Unavailable MAGDA BAKER MD Unavailable Unavailable MAGDA BAKER MD Unavailable Unavailable MAGDA BAKER MD Unavailable Unavailable MAGDA BAKER MD Unavailable Unavailable MAGDA BAKER MD Unavailable Unavailable GINZBURG, MAGDA MD Unavailable Unavailable GINZBURG, MAGDA MD Unavailable Unavailable GINZBURG, MAGDA MD Unavailable Unavailable GINZBURG, MAGDA MD Unavailable Unavailable GINZBURG, MAGDA MD Unavailable Unavailable GINZBURG, MAGDA MD Unavailable Unavailable GINZBURG, MAGDA MD Unavailable Unavailable GINZBURG, MAGDA MD Unavailable Unavailable GINZBURG, MAGDA MD Unavailable Unavailable GINZBURG, MAGDA MD Unavailable Unavailable GINZBURG, MAGDA MD Unavailable Unavailable GINZBURG, MAGDA MD Unavailable Unavailable GINZBURG, MAGDA MD Unavailable Unavailable GINZBURG, MAGDA MD Unavailable Unavailable GINZBURG, MAGDA MD Unavailable Unavailable GINZBURG, MAGDA MD Unavailable Unavailable GINZBURG, MAGDA MD Unavailable Unavailable GINZBURG, MAGDA MD Unavailable Unavailable GINZBURG, MAGDA MD Unavailable Unavailable GINZBURG, MAGDA MD Unavailable Unavailable GINZBURG, MAGDA MD Unavailable Unavailable GINZBURG, MAGDA MD Unavailable Unavailable GINZBURG, MAGDA MD Unavailable Unavailable GINZBURG, MAGDA MD Unavailable Unavailable GINZBURG, MAGDA MD Unavailable Unavailable GINZBURG MAGDA MD Unavailable Unavailable GINZBURG MAGDA MD Unavailable Unavailable GINZBURG MAGDA MD Unavailable Unavailable GINZBURG, MAGDA MD Unavailable Unavailable GINZBURG MAGDA MD Unavailable Unavailable GINZBURG, MAGDA MD Unavailable Unavailable GINZBURG MAGDA MD Unavailable Unavailable GINZBURG, MAGDA MD Unavailable Unavailable GINZBURG, MAGDA MD Unavailable Unavailable GINZBURG, MAGDA MD Unavailable Unavailable GINZBURG, MAGDA MD Unavailable Unavailable GINZBURG, MAGDA MD Unavailable Unavailable GINZBURG, MAGDA MD Unavailable Unavailable GINZBURG, MAGDA MD Unavailable Unavailable GINZBURG, MAGDA MD Unavailable Unavailable GINZBURG, MAGDA MD Unavailable Unavailable GINZBURG, MAGDA MD Unavailable Unavailable GINZBURG, MAGDA MD Unavailable Unavailable GINZBURG, MAGDA MD Unavailable Unavailable GINZBURG, MAGDA MD Unavailable Unavailable GINZBURG, MAGDA MD Unavailable Unavailable GINZBURG, MAGDA MD Unavailable Unavailable MAGDA BAKER MD Unavailable Unavailable MAGDA BAKER MD Unavailable Unavailable MAGDA BAKER MD Unavailable Unavailable MAGDA BAKER MD Unavailable Unavailable MAGDA BAKER MD Unavailable Unavailable MAGDA BAKER MD Unavailable Unavailable MAGDA BAKER MD Unavailable Unavailable MAGDA BAKER MD Unavailable Unavailable MAGDA BAKER MD Unavailable Unavailable MAGDA BAKER MD Unavailable Unavailable MAGDA BAKER MD Unavailable Unavailable MAGDA BAKER MD Unavailable Unavailable MAGDA BAKER MD Unavailable Unavailable MAGDA BAKER MD Unavailable Unavailable MAGDA BAKER MD Unavailable Unavailable MAGDA BAKER MD Unavailable Unavailable MAGDA BAKER MD Unavailable Unavailable MAGDA BAKER MD Unavailable Unavailable MAGDA BAKER MD Unavailable Unavailable MAGDA BAKER MD Unavailable Unavailable MAGDA BAKER MD Unavailable Unavailable SINDI, R PROSPER Unavailable Unavailable Everardo Cordon MD Unavailable Unavailable Everardo Cordon MD Unavailable Unavailable Everardo Cordon MD Unavailable Unavailable Everardo Cordon MD Unavailable Unavailable Everardo Cordon MD Unavailable Unavailable Everardo Cordon MD Unavailable Unavailable Everardo Cordon MD Unavailable Unavailable Everardo Cordon MD Unavailable Unavailable Everardo Cordon MD Unavailable Unavailable Everardo Cordon MD Unavailable Unavailable Everardo Cordon MD Unavailable Unavailable Everardo Cordon MD Unavailable Unavailable Everardo Cordon MD Unavailable Unavailable Everardo Cordon MD Unavailable Unavailable Everardo Cordon MD Unavailable Unavailable Everardo Cordon MD Unavailable Unavailable Everardo Cordon MD Unavailable Unavailable Everardo Cordon MD Unavailable Unavailable Everardo Cordon MD Unavailable Unavailable Everardo Cordon MD Unavailable Unavailable Everardo Cordon MD Unavailable Unavailable Everardo Cordon MD Unavailable Unavailable Everardo Cordon MD Unavailable Unavailable Everardo Cordon MD Unavailable Unavailable Everardo Cordon MD Unavailable Unavailable NerisEverardo MD Unavailable Unavailable NerisEverardo azul MD Unavailable Unavailable NerisEverardo MD Unavailable Unavailable NerisEverardo MD Unavailable Unavailable NerisEverardo MD Unavailable Unavailable NerisEverardo MD Unavailable Unavailable NerisEverardo MD Unavailable Unavailable NerisEverardo MD Unavailable Unavailable NerisEverardo MD Unavailable Unavailable NerisEverardo mccall MD Unavailable Unavailable NerisEverardo MD Unavailable Unavailable NerisEverardo MD Unavailable Unavailable NerisEverardo MD Unavailable Unavailable NerisEverardo azul MD Unavailable Unavailable NerisEverardo MD Unavailable Unavailable NerisEverardo MD Unavailable Unavailable NerisEverardo MD Unavailable Unavailable NerisEverardo mccall MD Unavailable Unavailable NerisEverardo MD Unavailable Unavailable Everardo Cordon MD Unavailable Unavailable NerisEverardo azul MD Unavailable Unavailable Everardo Cordon MD Unavailable Unavailable Everardo Cordon MD Unavailable Unavailable Everardo Cordon MD Unavailable Unavailable Everardo Cordon MD Unavailable Unavailable Everardo Cordon MD Unavailable Unavailable Everardo Cordon MD Unavailable Unavailable Everardo Cordon MD Unavailable Unavailable Everardo Cordon MD Unavailable Unavailable Everardo Cordon MD Unavailable Unavailable Everardo Cordon MD Unavailable Unavailable Everardo Cordon MD Unavailable Unavailable Everardo Cordon MD Unavailable Unavailable Everardo Cordon MD Unavailable Unavailable Everardo Cordon MD Unavailable Unavailable Everardo Cordon MD Unavailable Unavailable Everardo Cordon MD Unavailable Unavailable Everardo Cordon MD Unavailable Unavailable Everardo Cordon MD Unavailable Unavailable Everardo Cordon MD Unavailable Unavailable Everardo Cordon MD Unavailable Unavailable Everardo Cordon MD Unavailable Unavailable Everardo Cordon MD Unavailable Unavailable Everardo Cordon MD Unavailable Unavailable Everardo Cordon MD Unavailable Unavailable Everardo Cordon MD Unavailable Unavailable Everardo Cordon MD Unavailable Unavailable Everardo Cordon MD Unavailable Unavailable Everardo Cordon MD Unavailable Unavailable Everardo Cordon MD Unavailable Unavailable Neris, Everardo Og MD Unavailable Unavailable Neris, Everardo Og MD Unavailable Unavailable Neris, Everardo Og MD Unavailable Unavailable Neris, Everardo Og MD Unavailable Unavailable Neris, Everardo Og MD Unavailable Unavailable Neris, Everardo Og MD Unavailable Unavailable Neris, Everardo Og MD Unavailable Unavailable Neris, Everardo Og MD Unavailable Unavailable Neris, Everardo Og MD Unavailable Unavailable MOeZnobia LAGUERRE FARHANA Unavailable Unavailable Simione-Albino, Allison PA Unavailable Unavailable Simione-Albino, Allison PA Unavailable Unavailable Simione-Albino, Allison PA Unavailable Unavailable Simione-Albino, Allison PA Unavailable Unavailable Simione-Albino, Allison PA Unavailable Unavailable Simione-Albino, Allison PA Unavailable Unavailable Simione-Albino, Allison PA Unavailable Unavailable Simione-Albino, Allison PA Unavailable Unavailable Simione-Albino, Allison PA Unavailable Unavailable Simione-Albino, Allison PA Unavailable Unavailable Simione-Albino, Allison PA Unavailable Unavailable Simione-Albino, Allison PA Unavailable Unavailable Simione-Albino, Allison PA Unavailable Unavailable Simione-Albino, Allison PA Unavailable Unavailable Simione-Albino, Allison PA Unavailable Unavailable Simione-Albino, Allison PA Unavailable Unavailable Simione-Albino, Allison PA Unavailable Unavailable Simione-Albino, Allison PA Unavailable Unavailable Simione-Albino, Allison PA Unavailable Unavailable Simione-Albino, Allison PA Unavailable Unavailable Simione-Albino, Allison PA Unavailable Unavailable Simione-Albino, Allison PA Unavailable Unavailable Simione-Albino, Allison PA Unavailable Unavailable Simione-Albino, Allison PA Unavailable Unavailable Simione-Albino, Allison PA Unavailable Unavailable Simione-Albino, Allison PA Unavailable Unavailable Simione-Albino, Allison PA Unavailable Unavailable Simione-Albino, Allison PA Unavailable Unavailable Simione-Albino, Allison PA Unavailable Unavailable Simione-Albino, Allison PA Unavailable Unavailable Simione-Albino, Allison PA Unavailable Unavailable Simione-Albino, Allison PA Unavailable Unavailable Simione-Albino, Allison PA Unavailable Unavailable Noris Bee MD . Unavailable + Noris Bee MD . Unavailable + Noris Bee MD . Unavailable + Noris Bee MD . Unavailable Cristal MD, Noris . Unavailable Cristal MD, Noris . Unavailable Cristal MD, Noris . Unavailable Cristal MD, Noris . Unavailable Cristal MD, Noris . Unavailable Cristal MD, Noris . Unavailable Cristal MD, Noris . Unavailable Cristal MD, Noris . Unavailable Cristal MD, Noris . Unavailable Cristal MD, Noris . Unavailable Cristal MD, Noris . Unavailable Cristal MD, Noris . Unavailable Cristal MD, Noris . Unavailable Cristal MD, Noris . Unavailable Cristal MD, Noris . Unavailable Cristal MD, Onris . Unavailable Cristal MD, Noris . Unavailable Cristal MD, Noris . Unavailable Cristal MD, Noris . Unavailable Cristal MD, Noris . Unavailable Cristal MD, Noris . Unavailable Cristal MD, Noris . Unavailable Cristal MD, Noris . Unavailable Cristal MD, Noris . Unavailable Cristal MD, Noris . Unavailable Cristal MD, Noris . Unavailable Cristal MD, Noris . Unavailable Cristal MD, Noris . Unavailable Noris Bee MD . Unavailable Noris Bee MD . Unavailable Edgar WINSTON MD Unavailable Unavailable Edgar WINSTON MD Unavailable Unavailable Edgar WINSTON MD Unavailable Unavailable Edgar WINSTON MD Unavailable Unavailable Edgar WINSTON MD Unavailable Unavailable Edgar WINSTON MD Unavailable Unavailable Edgar WINSTON MD Unavailable Unavailable Edgar WINSTON MD Unavailable Unavailable Edgar WINSTON MD Unavailable Unavailable Edgar WINSTON MD Unavailable Unavailable Edgar WINSTON MD Unavailable Unavailable Edgar WINSTON MD Unavailable Unavailable Edgar WINSTON MD Unavailable Unavailable Edgar WINSTON MD Unavailable Unavailable Edgar WINSTON MD Unavailable Unavailable Edgar WINSTON MD Unavailable Unavailable Edgar WINSTON MD Unavailable Unavailable Edgar WINSTON MD Unavailable Unavailable Edgar WINSTON MD Unavailable Unavailable Edgar WINSTON MD Unavailable Unavailable Edgar WINSTON MD Unavailable Unavailable Edgar WINSTON MD Unavailable Unavailable Edgar WINSTON MD Unavailable Unavailable Edgar WINSTON MD Unavailable Unavailable Edgar WINSTON MD Unavailable Unavailable Edgar WINSTON MD Unavailable Unavailable Edgar WINSTON MD Unavailable Unavailable Edgar WINSTON MD Unavailable Unavailable Edgar WINSTON MD Unavailable Unavailable Edgar WINSTON MD Unavailable Unavailable Edgar WINSTON MD Unavailable Unavailable Edgar WINSTON MD Unavailable Unavailable Edgar WINSTON MD Unavailable Unavailable Edgar WINSTON MD Unavailable Unavailable Edgar WINSTON MD Unavailable Unavailable Edgar WINSTON MD Unavailable Unavailable Edgar WINSTON MD Unavailable Unavailable Edgar WINSTON MD Unavailable Unavailable Edgar WINSTON MD Unavailable Unavailable Edgar WINSTON MD Unavailable Unavailable Edgar WINSTON MD Unavailable Unavailable Edgar WINSTON MD Unavailable Unavailable Edgar WINSTON MD Unavailable Unavailable Edgar WINSTON MD Unavailable Unavailable Edgar WINSTON MD Unavailable Unavailable Edgar WINSTON MD Unavailable Unavailable Edgar WINSTON MD Unavailable Unavailable Edgar WINSTON MD Unavailable Unavailable Edgar WINSTON MD Unavailable Unavailable Edgar WINSTON MD Unavailable Unavailable Edgar WINSTON MD Unavailable Unavailable Edgar WINSTON MD Unavailable Unavailable Edgar WINSTON MD Unavailable Unavailable Edgar WINSTON MD Unavailable Unavailable Egdar WINSTON MD Unavailable Unavailable Edgar WINSTON MD Unavailable Unavailable Edgar WINSTON MD Unavailable Unavailable WINSTONEdgar MD Unavailable Unavailable WINSTONEdgar MD Unavailable Unavailable WINSTONEdgar MD Unavailable Unavailable WINSTON, Edgar DELACRUZ MD Unavailable Unavailable WINSTON, Edgar DELACRUZ MD Unavailable Unavailable WINSTON, Edgar DELACRUZ MD Unavailable Unavailable WISNTON, Edgar DELACRUZ MD Unavailable Unavailable WINSTON, Edgar DELACRUZ MD Unavailable Unavailable WINSTON, Edgar DELACRUZ MD Unavailable Unavailable WINSTON, Edgar DELACRUZ MD Unavailable Unavailable WINSTON, Edgar DELACRUZ MD Unavailable Unavailable WINSTON, Edgar DELACRUZ MD Unavailable Unavailable WINSTON, Edgar DELACRUZ MD Unavailable Unavailable WINSTON, Edgar DELACRUZ MD Unavailable Unavailable WINSTON, Edgar DELACRUZ MD Unavailable Unavailable WINSTON, Edgar DELACRUZ MD Unavailable Unavailable WINSTON, Edgar DELACRUZ MD Unavailable Unavailable WINSTON, Edgar DELACRUZ MD Unavailable Unavailable WINSTON, Edgar DELACRUZ MD Unavailable Unavailable WINSTON, Edgar DELACRUZ MD Unavailable Unavailable WINSTON, Edgar DELACRUZ MD Unavailable Unavailable WINSTON, Edgar DELACRUZ MD Unavailable Unavailable WINSTON, Edgar DELACRUZ MD Unavailable Unavailable WINSTON, Edgar DELACRUZ MD Unavailable Unavailable WINSTON, Edgar DELACRUZ MD Unavailable Unavailable WINSTON, Edgar DELACRUZ MD Unavailable Unavailable WINSTON, Edgar DELACRUZ MD Unavailable Unavailable WINSTON, Edgar DELACRUZ MD Unavailable Unavailable WINSTON, Edgar DELACRUZ MD Unavailable Unavailable WINSTON, Edgar DELACRUZ MD Unavailable Unavailable WINSTON, Edgar DELACRUZ MD Unavailable Unavailable WINSTON, Edgar DELACRUZ MD Unavailable Unavailable WINSTON, Edgar DELACRUZ MD Unavailable Unavailable WINSTON, Edgar DELARCUZ MD Unavailable Unavailable WINSTON, Edgar DELACRUZ MD Unavailable Unavailable WINSTON, Edgar DELACRUZ MD Unavailable Unavailable WINSTON, Edgar DELACRUZ MD Unavailable Unavailable WINSTON, Edgar DELACRUZ MD Unavailable Unavailable WINSTON, Edgar DELACRUZ MD Unavailable Unavailable WINSTON, Edgar DELACRUZ MD Unavailable Unavailable Nisha Olivarez DO Unavailable Unavailable Nisha Olivarez DO Unavailable Unavailable Nisha Olivarez DO Unavailable Unavailable Nisha Olivarez DO Unavailable Unavailable Re-disclosure Warning The records that you are about to access may contain information from federally-assisted alcohol or drug abuse programs. If such information is present, then the following federally mandated warning applies: This information has been disclosed to you from records protected by federal confidentiality rules (42 CFR part 2). The federal rules prohibit you from making any further disclosure of this information unless further disclosure is expressly permitted by the written consent of the person to whom it pertains or as otherwise permitted by 42 CFR part 2. A general authorization for the release of medical or other information is NOT sufficient for this purpose. The Federal rules restrict any use of the information to criminally investigate or prosecute any alcohol or drug abuse patient.The records that you are about to access may contain highly sensitive health information, the redisclosure of which is protected by Article 27-F of the [facility] Public Health law. If you continue you may have access to information: Regarding HIV / AIDS; Provided by facilities licensed or operated by the [facility] Office of Mental Health; or Provided by the [facility] Office for People With Developmental Disabilities. If such information is present, then the following [facility] mandated warning applies: This information has been disclosed to you from confidential records which are protected by state law. State law prohibits you from making any further disclosure of this information without the specific written consent of the person to whom it pertains, or as otherwise permitted by law. Any unauthorized further disclosure in violation of state law may result in a fine or long-term sentence or both. A general authorization for the release of medical or other information is NOT sufficient authorization for further disc losure. Allergies and Adverse Reactions Type Description Substance Reaction Status Data Source(s ) Propensity to adverse reactions PACLITAXEL PACLITAXEL Anaphylaxis [facility] Family History Family Member Name Family Member Gender Family Member Status Date o f Status Description Data Source(s) Unknown Female Problem [facility] Unknown Female Problem [facility] Unknown Female Problem [facility] Encounters Encounter Providers Location Date Indications Data Source(s ) Outpatient Attender: Noris Bee MD 04/02/2021 12:00:00 A [facility] Outpatient Referrer: Prosper Mullins 03/18/2021 08:02:31 AM [facility] Outpatient Attender: Noris Bee MD [id number] 2020 12:00:00 AM EDT - 03/10/2021 12:37:28 PM [facility] Outpatient 03/03/2021 12:00:00 AM [facility] Outpatient 02/28/2021 02:36:03 PM EDT - 021 03:05:20 PM EDT [facility] ([facility]) Outpatient Attender: DEFAULT ED 02/24/2021 12:00:00 AM [facility] Outpatient Attender: Lenka Cordon MDReferrer: Lenka bruner MD 02/17/2021 12:00:00 AM EDT 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, unspecified site [facility] 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, unspecified site Outpatient Attender: DEFAULT ED 02/17/2021 12:00:00 AM [facility] Outpatient Attender: FARHANA VIERA [id number] 02/12/2021 11:29:16 A M [facility] Outpatient Attender: ZAHRAA DIASttender: DEFAULT ED 02/12/2021 12:00:00 AM EDT - 02/12/2021 01:04:13 PM [facility] Outpatient Attender: Piyush Paz MP HAttender: NIKUNJ SILVAAttender: PIYUSH PAZ [id number] 02/10/2021 12:00:00 AM EDT - 02/10/2021 02:12:53 PM [facility] Outpatient 02/10/2021 12:00:00 AM EDT - 021 01:58:30 PM [facility] Outpatient 02/10/2021 12:00:00 AM [facility] Outpatient 02/10/2021 12:00:00 AM [facility] Outpatient Attender: NIKUNJ Ken kary: Piyush Paz MPHAttender: PIYUSH PAZ 02/10/2021 12:00:00 AM EDT [facility] Outpatient Attender: Piyush Paz MPHAttender: PIYUSH GALLEGOS 02/10/2021 12:00:00 AM [facility] Outpatient Attender: NIKUNJ SILVA 02/10/2021 12:00:00 AM [facility] Outpatient Attender: Paulie Hebert/Gian/Steven/Cheryl 02/09/2021 01:00:00 PM EDT [facility] ([facility] Outpatient Attender: DEFAULT ED 02/03/2021 12:00:00 AM [facility] Outpatient Attender: Noris Bee MD [id number] 2020 12:00:00 AM EDT - 01/27/2021 03:33:51 PM EDT [facility] Outpatient Attender: DRAGAN EDAttender: PAULIE OVERTON 01/22/2021 12:00:00 AM EDT - 01/22/2021 11:51:[address] [facility] Outpatient Attender: Noris Bee MD [id number] 2020 12:00:00 AM EDT - 01/15/2021 10:38:30 AM EDT [facility] Outpatient Referrer: Prosper Mullins 01/13/2021 01:51:41 PM ED T [facility] Outpatient 01/13/2021 12:00:00 AM EDT Malignant neoplasm of right ovary [facility] Malignant neoplasm of right ovary Emergency Attender: PARISH MATTA MD [id number] 01/10 12:00:00 AM EDT - 01/10/2021 05:28:00 PM EDT Blood draw platete count off; cancer patient [facility] Blood draw platete count off; cancer pat ient Patient discharged. Outpatient Attender: Noris Bee MDAttender: JOVAN MURDOCK 01/08/2021 12:00:00 AM EDT - 01/08/2021 03:25:40 PM EDT Malignant neoplasm of right ovary [facility] Malignant neoplasm of right ovary Outpatient 01/01/2021 12:00:00 AM [facility] Outpatient Attender: Noris Bee MD [id number] 2020 12:00:00 AM EDT - 12/25/2020 03:47:35 PM T [facility] Outpatient Attender: SEBAS LEÓNAttender: SEBAS LEÓN NP [id number] 12/18/2020 12:00:00 AM EDT - 12/18/2020 12:16:43 PM [facility] Outpatient Attender: Noris Bee MD 12/16/2020 12:00:00 A M [facility] Attender: Jayme Winston 12/11/2020 08:21:08 PM EDT [facility] Attender: Jayme Winston 12/11/2020 08:21:08 PM EDT [facility] Attender: Jayme Winston 12/10/2020 08:21:08 PM EDT [facility] Attender: Jayme Winston 12/10/2020 08:21:08 PM EDT [facility] Attender: Jayme Winston 12/10/2020 08:21:08 PM EDT [facility] Attender: Jayme Winston 12/10/2020 08:21:08 PM EDT [facility] Attender: Jayme Winston 12/10/2020 08:21:08 PM EDT [facility] Attender: Jayme Winston 12/10/2020 08:21:08 PM EDT [facility] Outpatient Attender: Noris Bee MD [id number] 2020 12:00:00 AM EDT - 12/04/2020 11:47:46 AM EDT Malignant neoplasm of right ovary [facility] Malignant neoplasm of right ovary Outpatient Attender: Noris Bee MD 12/04/2020 12:00:00 A M [facility] Outpatient Attender: Noris Tam-ONCCACTR 2020 12:00:00 AM EDT - 11/25/2020 01:52:05 PM [facility] Outpatient Attender: Lenka Alford 01:15:00 PM EDT [facility] ([facility] ) Outpatient Attender: Noris Bee MD 11/13/2020 12:00:00 A M [facility] Outpatient Attender: Noris Bee MD 11/06/2020 12:00:00 A M [facility] Outpatient Attender: PROSPER DELONG [id number] 10/23/2020 12:00:00 AM [facility] Outpatient Referrer: PROVIDER SYSTEM IN 10/23/2020 1 2:00:00 AM EDT Malignant neoplasm of pelvis [facility] Malignant neoplasm of pelvis Outpatient Attender: Noris Bee MD 10/23/2020 12:00:00 A M [facility] Outpatient Attender: Noris Bee MD 10/16/2020 12:00:00 A M [facility] Outpatient Attender: SHY ORTIZ RN 021 12:00:00 AM EDT - 09/30/2020 11:48:11 AM EDT [facility] 09/29/2020 12:00:00 AM [facility] Outpatient Attender: SEBAS MENDOSAKAAttender: Noris Bee MD [id number] 09/25/2020 12:00:00 AM EDT - 09/28/2020 09:13:43 AM EDT Malignant neoplasm of [facility] Malignant neoplasm of pelvis Outpatient Attender: Noris Bee MD [id number] 2020 12:00:00 AM EDT - 09/04/2020 12:22:25 PM EDT Malignant 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 Outpatient Attender: Joyce ROBINS [id number] 0 08/25/2020 12:00:00 AM EDT - 08/25/2020 11:07:07 AM EDT Malignant neoplasm of [facility] Malignant neoplasm of pelvis Outpatient Attender: PROSPER DELONG [id number] 08/24/2020 12:00:00 AM [facility] Outpatient Attender: Joyce Olmedo RPA-C 08/19/2020 12:00 :00 AM [facility] Outpatient 08/17/2020 12:00:00 AM [facility] Outpatient Attender: HARINDER HOOKS MDA dmitter: PRATEEK MCCRACKENReferrer: Joyce Olmedo RPA-C 08/14/2020 12:00:00 AM EDT - 08/14/2020 09:40:00 PM EDT Malignant 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 Outpatient Attender: JENNIFER Tam-ONCCACTR 08/13/2020 12:00 :00 AM EDT Malignant neoplasm of pelvis [facility] Malignant neoplasm of pelvis Outpatient Attender: Noris Bee MD [id number] 2020 12:00:00 AM EDT - 08/07/2020 10:50:25 AM EDT Malignant neoplasm of pelvis [facility] Malignant neoplasm of pelvis Outpatient Attender: Lenka Alford 11:00:00 AM EDT [facility] ([facility] ) Attender: JAYME WINSTON MDReferrer: HODA QUINTERO MD 07/23/2020 08:21:03 PM EDT [facility] Attender: JAYME WINSTON MDReferrer: HODA QUINTERO MD 07/23/2020 08:21:03 PM EDT [facility] Attender: JAYME WINSTON MDReferrer: HODA QUINTERO MD 07/23/2020 08:21:03 PM EDT [facility] Attender: JAYME WINSTON MDReferrer: HODA QUINTERO MD 07/23/2020 08:21:03 PM EDT [facility] Attender: JAYME WINSTON MDReferrer: Janelle Nieto MD 07/23/2020 08:21:03 PM EDT [facility] Attender: JAYME WINSTON MDReferrer: Janelle Nieto MD 07/23/2020 08:21:03 PM EDT [facility] Attender: JAYME WINSTON MDReferrer: Janelle Nieto MD 07/23/2020 08:21:03 PM EDT [facility] Attender: JAYME WINSTON MDReferrer: Janelle Nieto MD 07/23/2020 08:21:03 PM EDT [facility] Outpatient Attender: ANUEL NÚÑEZ MD [facility] 02:00:00 PM EDT [facility] ([facility] Outpatient Attender: ANUEL NÚÑEZ MDConsultant: ANUEL JONES MD 07/22/2020 08:20:00 AM EDT - 07/22/2020 09:20:00 AM EDT [facility] Patient discharged. Outpatient Referrer: Allison MOSER 07/15/2020 1 0:33:52 AM EST [facility] Outpatient Attender: ANUEL NÚÑEZ MD [facility] 02/2021 09:00:00 AM EST [facility] ([facility] Outpatient Attender: Allison MOSER MOCAM-[email or web address].[email or web address] N 07/10/2020 12:00:00 AM EST - 07/10/2020 09:59:27 AM EST [facility] Outpatient Attender: MAGDA BAKER MDReferrer: MAGDA MA MD 07/07/2020 12:00:00 AM EST - 07/08/2020 12:00:00 AM EST N39.0] [facility] N39.0] Outpatient Attender: ANUEL NÚÑEZ MDConsultant: ANUEL JONES MD 06/25/2020 02:11:00 PM EST - 06/25/2020 03:11:00 PM EST [facility] Outpatient Attender: ANUEL NÚÑEZ MD [facility] 12:45:00 PM EST [facility] ([facility] Outpatient Attender: MAGDA BAKER MD [id number] 12:00:00 AM EST - 06/10/2020 02:45:06 PM EST [facility]: JAYME WINSTON MDReferrer: Janelle Nieto MD 04/17/2020 08:20:12 PM EST [facility] Attender: JAYME WINSTON MDReferrer: Janelle Nieto MD 04/17/2020 08:20:12 PM EST [facility] Attender: JAYME WINSTON MDReferrer: Janelle Nieto MD 04/16/2020 08:20:12 PM EST [facility] Attender: JAYME WINSTON MDReferrer: Janelle Nieto MD 04/16/2020 08:20:12 PM EST [facility] Attender: JAYME WINSTON MDReferrer: Janelle Nieto MD 04/16/2020 08:20:12 PM EST [facility] Attender: JAYME WINSTON MDReferrer: Janelle Nieto MD 04/16/2020 08:20:12 PM EST [facility] Attender: JAYME WINSTON MDReferrer: Janelle Nieto MD 04/06/2020 08:20:11 PM EST [facility] Attender: JAYME WINSTON MDReferrer: Janelle Nieto MD 04/06/2020 08:20:11 PM EST [facility] Attender: JAYME WINSTON MDReferrer: Janelle Nieto MD 04/06/2020 08:20:11 PM EST [facility] Attender: JAYME WINSTON MDReferrer: Janelle Nieto MD 04/06/2020 08:20:11 PM EST [facility] Outpatient Attender: ANUEL NÚÑEZ MD [facility] 03/2020 09:00:00 AM EST [facility] ([facility] Attender: JAYME WINSTON MDReferrer: Janelle Nieto MD 02/13/2020 08:20:10 PM EDT [facility] Attender: JAYME WINSTON MDReferrer: Janelle Nieto MD 02/13/2020 08:20:10 PM EDT [facility] Attender: JAYME WINSTON MDReferrer: Janelle Nieto MD 02/13/2020 08:20:10 PM EDT [facility] Attender: JAYME WINSTON MDReferrer: Janelle Nieto MD 02/13/2020 08:20:10 PM EDT [facility] Attender: JAYME REBOLLEDOeferrer: Janelle Nieto MD 02/13/2020 08:20:10 PM EDT [facility] Attender: JAYME WINSTON MDReferrer: Janelle Nieto MD 02/13/2020 08:20:10 PM EDT [facility] Outpatient Referrer: Prosper Mullins 01/22/2020 03:06:14 PM ED T [facility] Outpatient Attender: Prosper Mullins NICK 01/22/2020 01:02:24 PM EDT - 01/22/2020 02:58:[address] [facility] Immunizations Vaccine Date Status Description Data Source(s) This CVX code allows reporting of a vacc ination when formulation is unknown (for example, when recording a Influenza vaccination when noted on a vaccination card) 03/13/2021 08:32:00 AM EDT completed DILSHAD Omer ([facility]) COVID-19 VACCINE Moderna 03/06/2021 12:00:00 AM EDT completed [facility]IS Vaccine Series Complete: YESThis Data wa s Submitted to [facility] Via [employer]. pneumococcal polysaccharide PPV23 08/06/2020 12:17:00 PM EDT comple jc RIOS ([facility]) COVID-19 VACCINE Moderna 06/25/2020 12:00:00 AM EST completed [facility]IS Vaccine Series Complete: YESThis Data wa s Submitted to [facility] Via [employer]. COVID-19 VACCINE Moderna 05/28/2020 12:00:00 AM EST completed [facility] Vaccine Series Complete: NOThis Data was Submitted to [facility] Via [employer]. pneumococcal polysaccharide PPV23 03/18/2020 09:30:00 AM EST comple jc RIOS ([facility] INFLUENZA VIRUS VACCINE QUADRIVAL SPLIT 2019-(65 YR UP)/PF 02/17/2020 12:00:00 AM EDT completed [facility] Medications Medication Brand Name Start Date Product Form Dose Route Admi nistrative Instructions Pharmacy Instructions Status Indications Reaction Description Data Source(s) Sodium Chloride 0.111 MEQ/ML Nasal Solution Saline Nasal Spr ay 03/22/2021 12:00:00 AM EST ronak CHEEMA ([facility]) 10 gram/15 mL 03/10/2021 12:00:00 AM EDT solution 2700 TAKE 30ML BY MOUTH TWO TIMES A DAY NEEDED TAKE 30ML BY MOUTH TWO TIMES A DAY NEEDED SOLD: 03/15/2021 [facility] 10 gram/15 mL 01/26/2021 12:00:00 AM EDT solution 473 TAKE 15ML BY MOUTH DAILY NEEDED FOR CONSTIPATION TAKE 15ML BY MOUTH DAILY NEEDED FOR CONSTIPATION SOLD: 01/27/2021 [facility] 150 mg 01/18/2021 12:00:00 AM EDT tablet 2 TAKE ONE TABLET BY MOUTH EVERY DAY TAKE ONE TABLET BY MOUTH EVERY DAY SOLD: 01/18/2021 [facility] Cephalexin 500 MG Oral Capsule CEPHALEXIN 01/18/2021 12:00:00 AM EDT capsule 21 TAKE ONE CAPSULE BY MOUTH THREE TIMES A DAY FOR 7 DAYS TAKE ONE CAPSULE BY MOUTH THREE TIMES A DAY FOR 7 DAYS SOLD: 01/18/2021 [facility] 3 ML heparin sodium, porcine 100 UNT/ML Prefilled Syringe heparin flush (porcine) 100 UNIT/ML injection 500 Units heparin flush (porcine) 100 UNIT/ML injection 500 Units 01/10/2021 05:30:00 PM EDT 500 U Intracatheter completed 500 Units, Intracatheter, Once, On Mon01/10/21 at 1730, For 1 dose [facility] Medication administered onsite pegfilgrastim (NEULASTA ONPRO) for on-body injector kit 6 mg [id number] 12/25/2020 02:00:00 PM EDT 6 mg Subcutaneous completed S erous carcinoma of female pelvisCarcinoma of right ovary 6 mg, Subcutaneous, Onc e, On Mon12/25/20 at 1400, For 1 dose
Store in the refrigerator.
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
Hazardous drug. Follow precautions. Dispose of properly.
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
Once, On Mon12/25/20 at 1300, For 1 dose
Do not filter.
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
Give 30 minutes prior to chemo.
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
Give prior to chemotherapy
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
Give prior to chemotherapy.
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
Give 30 minutes prior to chemotherapy.
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 Medication administered onsite Potassium Chloride 10 MEQ Extended Relea se Oral Capsule Potassium Chloride ER 10 MEQ Oral Capsule Extended Release (MICRO-K) Potassium Chloride ER 10 MEQ Oral Capsule Extended Release (MICRO-K) 12/18/2020 12:00:00 AM EDT 20 meq Oral active Take 2 capsules by mouth Two Matti es Daily [facility] Potassium Chloride 10 MEQ Extended Release Oral Capsule POTA SSIUM CHLORIDE 12/18/2020 12:00:00 AM EDT capsule, extended release 60 TAKE TWO CAPSULES BY MOUTH TWICE A DAY TAKE TWO CAPSULES BY MOUTH TWICE A DAY SOLD: 01/16/2021 [facility] Potassium Chloride 10 MEQ Extended Release Oral Capsule POTA SSIUM CHLORIDE 12/18/2020 12:00:00 AM EDT capsule, extended release 60 TAKE TWO CAPSULES BY MOUTH TWICE A DAY TAKE TWO CAPSULES BY MOUTH TWICE A DAY SOLD: 12/23/2020 [facility] 4 mg 12/07/2020 12:00:00 AM EDT tablet 4 TAKE ONE TABLET BY MOUTH TWICE A DAY STARTING DAY AFTER CHEMOTHERAPY FOR 2 DAYS TAKE ONE TABLET BY MOUTH TWICE A DAY STARTING DAY AFTER CHEMOTHERAPY FOR 2 DAYS SOLD: 12/11/2020 [facility] 8 mg 12/04/2020 12:00:00 AM EDT tablet 30 TAKE ONE TABLET BY MOUTH EVERY 8 HOURS NEEDED FOR NAUSEA AND VOMITING TAKE ONE TABLET BY MOUTH EVERY 8 HOURS NEEDED FOR NAUSEA AND VOMITING SOLD: 12/05/2020 [facility] 4 mg 12/04/2020 12:00:00 AM EDT tablet 6 TAKE ONE TABLET BY MOUTH TWICE A DAY - START THE DAY BEFORE CHEMOTHERAPY AND FOR 2 DAYS AFTER TAKE ONE TABLET BY MOUTH TWICE A DAY - START THE DAY BEFORE CHEMOTHERAPY AND FOR 2 DAYS AFTER SOLD: 12/05/2020 [facility] Ondansetron 8 MG Oral Tablet Ondansetron HCl 8 MG Oral Tablet (ZOFRAN) Ondansetron HCl 8 MG Oral Tablet (ZOFRAN) 12/04/2020 12:00:00 AM EDT 8 mg Oral active 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 Take 1 tablet by mouth every 8 (eight) hours as needed for Nausea or Vomiting 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
Store in the refrigerator.
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
Hazardous drug. Follow precautions. Dispose of properly.
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
Once, On Mon11/25/20 at 1045, For 1 dose
Do not filter.
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
Give prior to chemotherapy.
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 9 % 50 mL IVPB 11/25/2020 10:15:00 AM EDT 10 mg Intravenous c ompleted 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 mg, Intraveno us, Administer over 15 Minutes, Once, On Mon11/25/20 at 1015, For 1 dose
Give prior to chemotherapy
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
Give 30 minutes prior to chemotherapy.
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
Give 30 minutes prior to chemo.
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 Medication administered onsite Potassium Chloride 10 MEQ Extended Release Oral Capsule POTA SSIUM CHLORIDE 11/25/2020 12:00:00 AM EDT capsule, extended release 60 TAKE TWO CAPSULES BY MOUTH TWICE A DAY TAKE TWO CAPSULES BY MOUTH TWICE A DAY SOLD: 11/25/2020 [facility] 10 mEq 11/25/2020 12:00:00 AM EDT tablet,ER particles/cry stals 60 TAKE ONE TABLET BY MOUTH TWICE A DAY TAKE ONE TABLET BY MOUTH TWICE A DAY SOLD: 11/25/2020 [facility] Potassium Chloride 10 MEQ Extended Relea se Oral Capsule Potassium Chloride ER 10 MEQ Oral Capsule Extended Release (MICRO-K) Potassium Chloride ER 10 MEQ Oral Capsule Extended Release (MICRO-K) 11/25/2020 12:00:00 AM EDT 20 meq Oral aborted Take 2 capsules by mouth Two Matti es Daily [facility] Potassium Chloride Landy ER 10 MEQ Oral Tablet Extended Release (K-DUR) [id number] 11/25/2020 12:00:00 AM EDT 10 meq Oral abort ed Take 1 tablet by mouth Two Times Daily [facility] Cephalexin 500 MG Oral Capsule CEPHALEXIN 11/12/2020 12:00:00 AM EDT capsule 21 TAKE ONE CAPSULE BY MOUTH THREE TIMES A DAY FOR 7 DAYS TAKE ONE CAPSULE BY MOUTH THREE TIMES A DAY FOR 7 DAYS SOLD: 11/12/2020 [facility] 200 mg 11/12/2020 12:00:00 AM EDT tablet 6 TAKE ONE TABLET BY MOUTH THREE TIMES A DAY FOR 2 DAYS TAKE ONE TABLET BY MOUTH THREE TIMES A DAY FOR 2 DAYS SOLD: 11/12/2020 [facility] Lactulose 667 MG/ML Oral Solution Lactul ose 10 GM/15ML Oral Solution (CHRONULAC) Lactulose 10 GM/15ML Oral Solution (CHRONULAC) 10/20/2020 12:00: 00 AM EDT 10 g Oral active Take 15 mLs by mouth arden ly as needed [facility] 10 gram/15 mL 10/20/2020 12:00:00 AM EDT solution 450 TAKE 15ML BY MOUTH DAILY NEEDED TAKE 15ML BY MOUTH DAILY NEEDED SOLD: 10/21/2020 [facility] 10 gram/15 mL 10/20/2020 12:00:00 AM EDT solution 450 TAKE 15ML BY MOUTH DAILY NEEDED TAKE 15ML BY MOUTH DAILY NEEDED SOLD: 12/11/2020 [facility] 5 % 09/25/2020 12:00:00 AM EDT ointment 15 APPLY TO HERPETIC LESIONS 3-5 TIMES DAILY APPLY TO HERPETIC LESIONS 3-5 TIMES DAILY SOLD: 09/27/2020 [facility] Acyclovir 0.05 MG/MG Topical Ointment Acyclovir 5 % Ex ternal Ointment (Zovirax) Acyclovir 5 % External Ointment (Zovirax) 09/25/2020 12:00:00 AM EDT active Apply to herpetic lesions 3-5 ti mes daily [facility] 24 HR mirabegron 50 MG Extended Release Oral Tablet Mirabegron ER 50 MG Oral Tablet Extended Release 24 Hour Mirabegron ER 50 MG Oral Tablet Extended Release 24 Hour 09/14/2020 12:00:00 AM EDT 50 mg Oral active Take 1 tablet by mouth daily DAW0 [facility] CARBOplatin (PARAPLATIN) 750 mg in sodium chloride 0.9 % lencho mo infusion 09/04/2020 11:15:00 AM EDT 750 mg Intravenous c ompleted 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
Hazardous drug. Follow precautions. Dispose of properly.
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
Store in the refrigerator.
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
Once, On Mon09/04/20 at 1015, For 1 dose
Do not filter.
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
Give 30 minutes prior to chemo.
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
Give 30 minutes prior to chemotherapy.
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
Give prior to chemotherapy.
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
Give prior to chemotherapy
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 Medication administered onsite Lidocaine 25 MG/ML / Prilocaine 25 MG/ML Topical Cream Lidocaine-Prilocaine 2.5- 2.5 % External Cream (EMLA) Lidocaine-Prilocaine 2.5-2.5 % External Cream (EMLA) 09/04/2020 12:00:00 AM EDT active Apply to port site as instructed [facility] 2.5-2.5 % 09/04/2020 12:00:00 AM EDT cream 30 APPLY TO PORT SITE DIRECTED APPLY TO PORT SITE DIRECTED SOLD: 09/09/2020 [facility] valacyclovir 500 MG Oral Tablet valACYclovir HCl 500 M G Oral Tablet (Valtrex) valACYclovir HCl 500 MG Oral Tablet (Valtrex) 09/04/2020 12:00:00 AM EDT 500 mg Oral active Take 1 tablet by mouth d [facility] Polysaccharide iron complex 150 MG Oral Capsule Polysaccharide Iron Complex 150 MG Oral Capsule (Ferrex 150) Polysaccharide Iron Complex 150 MG Oral Capsule (Ferrex 150) 09/04/2020 12:00:00 AM EDT 150 mg Oral compl eted Take 1 capsule by mouth daily [facility] Lactulose 667 MG/ML Oral Solution Lactul ose 10 GM/15ML Oral Solution (CHRONULAC) Lactulose 10 GM/15ML Oral Solution (CHRONULAC) 09/04/2020 12:00: 00 AM EDT 10 g Oral active Take 15 mL s by mouth Three times daily as needed for up to 10 days [facility] 10 gram/15 mL 09/04/2020 12:00:00 AM EDT solution 473 TAKE 15MLS BY MOUTH THREE TIMES A DAY NEEDED FOR UP TO 10 DAYS TAKE 15MLS BY MOUTH THREE TIMES A DAY NEEDED FOR UP TO 10 DAYS SOLD: 09/05/2020 [facility] 500 mg 09/04/2020 12:00:00 AM EDT tablet 30 TAKE ONE TABLET BY MOUTH EVERY DAY TAKE ONE TABLET BY MOUTH EVERY DAY SOLD: 09/05/2020 [facility] sodium bicarbonate 4.2 % injection 6944-3084-51 08/27/2020 09:26:55 A M EDT completed Code/Trauma continuo us Med, Starting on Mon08/27/20 at 0926 [facility] Medication administered onsite Epinephrine 0.01 MG/ML / Lidocaine [place] chloride 10 MG/ML Injectable Solution lidocaine-EPINEPHrine 1 %-1:264558 injection lidocaine-EPINEPHrine 1 %-1:107625 injection 08/27/2020 09:24:25 AM EDT complete d Code/Trauma Medication, Starting on Eliane 08/27/20 at 0924 [facility] Medication administered onsite 2 ML Midazolam 1 MG/ML Injection midazolam (PF) (VERSE D) injection midazolam (PF) (VERSED) injection 08/27/2020 09:06:02 AM EDT completed Code/Trauma Medication, Starting on Eliane 08/27/20 at 0906 [facility] Medication administered onsite fentaNYL (SUBLIMAZE) (PF) injection 0170-3961-75 08/27/2020 09:05:11 AM EDT completed Code/Trauma Medicati on, Starting on Eliane 08/27/20 at 0905 [facility] Medication administered onsite sodium chloride (preservative free) 0.9 % flush 3 mL 08/27/2020 09:00:00 AM EDT 3 mL Intravenous active [Ord er 1 Start] Name: Peripheral IV Signed Summary: Routine, CONTINUOUS, Starting on Eliane 08/27/20 at 0708, Until Mon08/28/20, For 1 day
Upon admission through end of procedure., Pre-op [Order 1 End] [Order 2 Start] Name: sodium chloride (preservative free) 0.9 % flush 3 mL Signed Summary: 3 mL, Intravenous, Every 8 hours Standard (3 times per day), First dose on Eliane 08/27/20 at 0900, For 30 days, Pre-op
Saline Lock. Flush Q8H and after each use to Saline Lock.
[Order 2 End] [Order 3 Start] Name: sodium chloride (preservative free) 0.9 % flush 3 mL Signed Summary: 3 mL, Intravenous, PRN, Line Care, Starting on Eliane 08/27/20 at 0707, For 30 days, Pre-op
Saline Lock. Flush Q8H and after each use to Saline Lock.
[Order 3 End] [Order 4 Start] Name: Saline Lock order Signed Summary: Routine, ONCE, On Eliane 08/27/20 at 0708, For 1 occurrence
Pre-op [Order 4 End] [facility] Medication administered onsite Clindamycin 12 MG/ML Injectable Solution clindamycin ( CLEOCIN) IVPB 600 mg clindamycin (CLEOCIN) IVPB 600 mg 08/27/2020 07:15:00 AM EDT 600 mg Intravenous completed 600 mg, Intra venous, at 100 mL/hr, Once, On Eliane 08/27/20 at 0715, For 1 dose, Pre-op
Discouraged Uses: Cellulitis
[facility] Medication administered onsite sodium chloride 0.9 % bag 3-20 mL 7321-8127-81 08/27/2020 07:07:56 AM EDT mL Intravenous active 3-20 mL, Intr avenous, at 1-999 mL/hr, PRN, For Medication Administration and Line Clearance, Starting on Eliane 08/27/20 at 0707, For 30 days, Pre-op
Flush line with sufficient amount of fluid needed based on runner worker recommendation for specific line size. Rate should be run at the same rate as medication in the line being flushed.
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 Take 1 tablet by mouth every 6 (six) hours as needed (Nausea, Vomiting) 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 Ondansetron 8 MG Oral Tablet Ondansetron HCl 8 MG Oral Tablet (ZOFRAN) Ondansetron HCl 8 MG Oral Tablet (ZOFRAN) 08/14/2020 12:00:00 AM EDT 8 mg Oral aborted 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 Take 1 tablet by mouth every 8 (eight) hours as needed for Nausea or Vomiting 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 10 mg 08/07/2020 12:00:00 AM EDT tablet 30 TAKE ONE TABLET BY MOUTH EVERY 6 HOURS NEEDED FOR NAUSEA AND VOMITING TAKE ONE TABLET BY MOUTH EVERY 6 HOURS NEEDED FOR NAUSEA AND VOMITING SOLD: 09/03/2020 [facility] 8 mg 08/07/2020 12:00:00 AM EDT tablet 20 TAKE ONE TABLET BY MOUTH EVERY 8 HOURS NEEDED FOR NAUSEA OR VOMITING TAKE ONE TABLET BY MOUTH EVERY 8 HOURS A S NEEDED FOR NAUSEA OR VOMITING SOLD: 09/03/2020 [facility] 10 mg 08/07/2020 12:00:00 AM EDT tablet 30 TAKE ONE TABLET BY MOUTH EVERY 6 HOURS NEEDED FOR NAUSEA AND VOMITING TAKE ONE TABLET BY MOUTH EVERY 6 HOURS NEEDED FOR NAUSEA AND VOMITING SOLD: 08/07/2020 [facility] 8 mg 08/07/2020 12:00:00 AM EDT tablet 20 TAKE ONE TABLET BY MOUTH EVERY 8 HOURS NEEDED FOR NAUSEA OR VOMITING TAKE ONE TABLET BY MOUTH EVERY 8 HOURS A S NEEDED FOR NAUSEA OR VOMITING SOLD: 08/07/2020 [facility] Omeprazole 40 MG Delayed Release Oral Capsule Omeprazole 08/06/2020 12:00:00 AM EDT ORAL active [facility] ([facility]) atorvastatin 40 MG Oral Tablet Atorvastatin Calcium 08/06/2020 1 2:00:00 AM EDT ORAL active [facility] ( [facility]) Escitalopram 20 MG Oral Tablet [Lexapro] Lexapro 08/06/2020 12:00: 00 AM EDT ORAL active [facility] ([facility]) Probiotic Probiotic 08/06/2020 12:00:00 AM EDT ORAL act ania [facility] ([facility]) valacyclovir 1000 MG Oral Tablet [Valtrex] Valtrex 08/06/2020 12:00:00 AM EDT ORAL active [facility] ([facility]) 10 gram/15 mL 07/10/2020 12:00:00 AM EST solution 450 TAKE 15MLS BY MOUTH THREE TIMES A DAY TAKE 15MLS BY MOUTH THREE TIMES A DAY SOLD: 07/27/2020 [facility] 10 gram/15 mL 07/10/2020 12:00:00 AM EST solution 450 TAKE 15MLS BY MOUTH THREE TIMES A DAY TAKE 15MLS BY MOUTH THREE TIMES A DAY SOLD: 07/10/2020 [facility] Lactulose 83.3 MG/ML Oral Solution lactulose (CEPHULAC ) 10 g packet lactulose (CEPHULAC) 10 g packet 07/10/2020 12:00:00 AM EST 10 g Oral active Take 1 packet (10 g total) by mouth 3 (three) times a day [facility] Sulfamethoxazole 800 MG / Trimethoprim 1 60 MG Oral Tablet sulfamethoxazole- trimethoprim (BACTRIM DS,SEPTRA DS) 800-160 MG per tablet sulfamethoxazole- trimethoprim (BACTRIM DS,SEPTRA DS) 800-160 MG per tablet 07/08/2020 12:00:00 AM EST active TAKE 1 TABLET BY MOUTH TWO TIMES DAILY FOR 5 DAYS [facility] Docusate Sodium 100 MG Oral Capsule [Colace] Colace 12:00:00 AM EST ORAL completed [facility] ([facility] Omeprazole 40 MG Delayed Release Oral Capsule Omeprazole 06/25/2020 12:00:00 AM EST ORAL active [facility] ([facility] Omeprazole 40 MG Delayed Release Oral Ca psule omeprazole (PRILOSEC) 40 MG capsule omeprazole (PRILOSEC) 40 MG capsule 06/25/2020 12:00:00 AM EST 1 {capsule} Oral active Take 1 capsule by mout h daily [facility] Covid-19 vaccine, Unspecified 06/11/2020 12:00:00 AM EST completed [facility] ([facility]) Medication administered onsite solifenacin succinate 5 MG Oral Tablet solifenacin (VE SICARE) 5 MG tablet solifenacin (VESICARE) 5 MG tablet 06/10/2020 12:00:00 AM EST 5 mg Oral active Take 5 mg by mouth [facility] solifenacin succinate 5 MG Oral Tablet S olifenacin Succinate 5 MG Oral Tablet (VESICARE) Solifenacin Succinate 5 MG Oral Tablet (VESICARE) 07/2020 12:00:00 AM EST 5 mg Oral aborted Take 1 tablet b y mouth daily [facility] Covid-19 vaccine, Unspecified 05/14/2020 12:00:00 AM EST completed [facility] ([facility]) Medication administered onsite valacyclovir 1000 MG Oral Tablet valACYclovir (VALTREX ) 1000 MG tablet valACYclovir (VALTREX) 1000 MG tablet 04/03/2020 12:00:00 AM EST 2 {tbl} Oral active Take 2 tablets by mouth 2 (two) times a day as needed [facility] CPAP 01/26/2020 12:00:00 AM EDT active [facility] ([facility] ) Omeprazole 20 MG Delayed Release Oral Ca psule omeprazole (PRILOSEC) 20 MG capsule omeprazole (PRILOSEC) 20 MG capsule 20 mg Oral aborted Take 20 mg by mouth daily [facility] valacyclovir 500 MG Oral Tablet valACYclovir (VALTREX) 500 MG tablet valACYclovir (VALTREX) 500 MG tablet 500 mg Oral a borted Take 500 mg by mouth as needed [facility] Levothyroxine Sodium 0.075 MG Oral Table t levothyroxine (SYNTHROID, LEVOTHROID) 75 MCG tablet levothyroxine (SYNTHROID, LEVOTHROID) 75 MCG tablet 75 ug Oral aborted Take 75 mcg by mouth daily [facility] Stollings-3 Fatty Acids (FISH OIL) 1200 MG CAPS [id number] 2400 mg Oral aborted Take 2,400 mg by mouth daily. [facility] Psyllium (METAMUCIL FIBER SINGLES PO) Oral aborted Take by mouth [facility] Insurance Providers Payer name Policy type / Coverage type Policy ID Covered constitution party ID Covered constitution party's relationship to rendon Policy Rendon Plan Information POMCO U [id number] Self [id number] [facility] [id number] 1 [id number] [facility] PPO POS [id number] [place] [id number] [address] [address] LUL A UNAVAILABLE [id number] UNAVA ILABLE [address] [place] UNAVAILABLE [id number] UNAV AILABLE BLUE CARD C [id number] Spouse [id number] POMCO [id number] SP [id number] [facility] 200/700 [id number] [id number] UMR [id number] xxxxxxxxx [id number] UMR [id number] Marissa [id number] UMR U [id number] Self [id number] UMR [id number] Marissa [id number] Excell[employer] BC//BS Medigap Part B [id number] Family Dependent [id number] POMCO [id number] Marissa [id number] [employer] SECONDARY [id number] BLUE CARD C [id number] Self [id number] UMR [facility] [id number] SP [id number] Umr Care Management [id number] 0 [id number] Umr Care Management [id number] 0 [id number] EXCELLUS BCBS [id number] Spo NGN [id number] EXCELLUS BCBS [id number] Spo NGN [id number] UMR [facility] [id number] SP [id number] [place] 200/700 [id number] SP [id number] [place] 200/700 [id number] SP [id number] MEDICARE [id number] SP [id number] UMR [facility] [id number] SP [id number] Umr Commercial [id number] Self [id number] UMR U [id number] Self [id number] Umr Commercial [id number] Self [id number] Umr Commercial [id number] Self [id number] MEDICARE [id number] xxxxxxxxxxx [id number] Umr Care Management [id number] MEDICARE [id number] Marissa [id number] MEDICARE A [id number] Self [id number] Medicare Part B [place] [id number] MEDICARE [id number] Marissa [id number] BLUE CARD C [id number] Self [id number] [employer] Blue Cross and Blue Shield - [facility] Blue Cross/B lue Shield [id number] Self [id number] [place] Medicare Part B [id number] Self [id number] [facility] [employer] [id number] Self [id number] [employer]UE CROSS BLUE SHIELD -O/P [id number] UMR -O/P [id number] 18 [id number] MEDICARE PART A -O/P [id number] 18 [id number] BCBS [place] PPO 302/307 [id number] SP [id number] BCBS [place] PPO 302/307 [id number] SP [id number] [employer] [place] Medigap Part B [id number] Family Dependent [id number] [facility] [id number] Self [id number] [employer] [place] Medigap Part B [id number] Family Dependent N [id number] ANSI-Commercial [id number] ANSI-Commercial [id number] ANSI-Commercial [id number] ANSI-Commercial [id number] ANSI-Commercial [id number] ANSI-Commercial [id number] [place] 200/700 [id number] SP [id number] POMCO [id number] SP [id number] [place] Commercial [id number] Self [id number] EXCELLUS BCBS B [id number] S [id number] [id number] POMCO PPO O [id number] S [id number] Excell[employer] BC//BS Medigap Part B [id number] Family Dependent [id number] [employer] BC//BS Medigap Part B [id number] Family Dependent [id number] [employer] Commercial [id number] Self [id number] [employer] BC//BS Medigap Part B [id number] Family Dependent [id number] [employer] BC//BS Medigap Part B [id number] Family Dependent [id number] [employer] Commercial [id number] Self [id number] [employer] BC//BS Medigap Part B BC/BS [place] [id number] Family Dependent BC/BS [place] [employer] BC//BS Medigap Part B [id number] Family Dependent [place] Commercial [id number] Self BLUE CROSS O [id number] SP [id number] POMCO O [id number] S [id number] BCBS [facility] 200/700 [id number] HU [id number] BCBS [place] PPO 302/307 [id number] SP [id number] Problems, Conditions, and Diagnoses Code Display Name Description Problem Type Effective Dates Data Source(s) M85.80 Other specified disorders of bone density and structure, unspecified site Other specified disorders of bone density and structur e, unspecified site Diagnosis 02/17/2021 10:24:00 AM [facility] Blood draw platete count off; cancer pat ient Blood draw platete count off; cancer patient Diagnosis 01/10/2021 08:16:00 AM [facility] C56.1 Malignant neoplasm of right ovary Malignant neop lasm of right ovary Diagnosis 10/12/2020 08:35:59 PM [facility] C76.3 Malignant neoplasm of pelvis Malignant neoplasm of pel vis Diagnosis 08/27/2020 07:08:03 AM [facility] T80.90XA Unspecified complication fol lowing infusion and therapeutic injection, initial encounter Unspecified complication following infus ion and therapeutic injection, initial encounter Diagnosis 08/13/2020 08:05:42 AM EDT [facility] J9811 Atelectasis Atelectasis Diagnosis [facility] Pleural effusion, not elsewhere classifi ed Pleural effusion, not elsewhere classified Diagnosis 07/22/2020 08:20:00 AM [facility] R188 Other ascites Other ascites Diagnosis 07/22/2020 08:20:00 AM [facility] R1901 Right upper quadrant abdominal swelling, mass and lump Right upper quadrant abdominal swelling, mass and lump Diagnosis 07/22/2020 08:20: 00 AM [facility] K7689 Other specified diseases of liver Other specifie d diseases of liver Diagnosis 07/22/2020 08:20:00 AM [facility] R109 Unspecified abdominal pain Unspecified abdominal pain Diagnosis 07/22/2020 08:20:00 AM [facility] E89.0 Postprocedural hypothyroidism Postprocedural hypothyro idism Diagnosis 07/10/2020 08:46:18 AM EST [facility] K59.09 Other constipation Other constipation Diagnosis 09/2020 08:46:18 AM [facility] K[facility]9 Gastro-esophageal reflux disease without esophagitis Gastro-esophageal reflux disease without Diagnosis 07/10/2020 08:46:18 AM [facility] M85.852 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, left thigh Other specified disorders of bone densit Diagnosis 07/10/2020 08:46:18 AM [facility] M85.851 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, right thigh Other specified disorders of bone densit Diagnosis 07/10/2020 08:46:18 AM EST [facility] E21.0 Primary hyperparathyroidism Primary hyperparathyroidis m Diagnosis 07/10/2020 08:46:18 AM EST [facility] N39.0] N39.0] Diagnosis 07/07/2020 10:50:00 AM [facility] [id number] Carcinoma of ovary, stage 4 Carcinoma of ovary, stage 4 Problem 08/06/2020 12:00:00 AM EDT [facility] ([facility]) [id number] Urge incontinence of urine Urge incontinence of urine Problem 08/06/2020 12:00:00 AM EDT [facility] ([facility]) [id number] Salcido's esophagus Salcido's esophagus Problem 0 08/06/2020 12:00:00 AM EDT [facility] ([facility]) 17843661 Hypothyroidism Hypothyroidism Problem 08/06/2020 12:00: 00 AM EDT [facility] ([facility]) 13213577 Hypercalcemia Hypercalcemia Problem 08/06/2020 12:00:00 AM EDT [facility] ([facility]) [id number] Environmental allergy Environmental allergy Problem 08/06/2020 12:00:00 AM EDT [facility] ([facility]) 486157638 Pure hypercholesterolemia Pure hypercholesterolemia Pr oblem 08/06/2020 12:00:00 AM EDT [facility] E21.0 Primary hyperparathyroidism Primary hyperparathyroidis m [id number] 07/10/2020 12:00:00 AM [facility] K59.09 Other constipation Other constipation [id number] 09/2020 12:00:00 AM [facility] G47.33 Obstructive sleep apnea syndrome Obstructive sle ep apnea syndrome Problem 02/05/2020 12:00:00 AM EDT [facility] Surgeries/Procedures Procedure Description Date Indications Data Source(s) Bone Mineral Density Test 02/09/2021 12:00:00 AM EDT [facility] OFFICE OUTPATIENT VISIT 15 MINUTES 02/09/2021 12:00:00 AM EDT [facility] ) PREPARE PLATELET PHERESIS <td>PREPARE PLATELET PHERESIS</td><td>Routine</td><td>01/10/2021 2:37 PM EDT</td><td></td><td></td> 01/10/2021 02:37:00 PM [facility] BLOOD COUNT COMPLETE AUTO&AUTO DIFRNTL WBC COUNT <td>C BC AND DIFFERENTIAL</td><td>Routine</td><td>01/10/2021 10:59 AM EDT</td><td></td><td> </td> 01/10/2021 10:59:00 AM T [facility] BASIC METABOLIC PANEL CALCIUM TOTAL <td>BASIC METABOLI C PANEL</td><td>STAT</td><td>01/10/2021 10:59 AM EDT</td><td></td><td> </td> 01/10/2021 10:59:00 AM [facility] BLOOD COUNT COMPLETE AUTO&AUTO DIFRNTL WBC COUNT <td>C BC AND DIFFERENTIAL</td><td>STAT</td><td>12/25/2020 11:01 AM EDT</td><td> 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</td><td> </td> 12/25/2020 11:01:00 AM EDT 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 [facility] 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 IMMUNOASSAY TUMOR ANTIGEN QUANTITATIVE CA 125 <td>CA 125</td><td>Routine</td><td>12/25/2020 11:01 AM EDT</td><td> Carcinoma of right ovary</td><td> </td> 12/25/2020 11:01:00 AM EDT Carcinoma of right ovary [facility] Carcinoma of right ovary COMPREHENSIVE METABOLIC PANEL <td>COMPREHENSIVE METABO LIC PANEL</td><td>Routine</td><td>12/25/2020 11:01 AM EDT</td><td> Carcinoma of right ovary</td><td> </td> 12/25/2020 11:01:00 AM EDT Carcinoma of right ovary [facility] Carcinoma of right ovary BLOOD COUNT COMPLETE AUTO&AUTO DIFRNTL WBC COUNT <td>C BC AND DIFFERENTIAL</td><td>Routine</td><td>12/18/2020 10:30 AM EDT</td><td> Carcinoma of right ovary 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</td><td> </td> 12/18/2020 10:30:00 AM EDT 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Carcinoma of right ov [facility] 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 Carcinoma of right ovary IMMUNOASSAY TUMOR ANTIGEN QUANTITATIVE CA 125 <td>CA 125</td><td>Routine</td><td>12/18/2020 10:30 AM EDT</td><td> Carcinoma of right ovary 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</td><td> </td> 12/18/2020 10:30:00 AM EDT 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Carcinoma of right ov [facility] 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 Carcinoma of right ovary COMPREHENSIVE METABOLIC PANEL <td>COMPREHENSIVE METABO LIC PANEL</td><td>STAT</td><td>12/18/2020 10:30 AM EDT</td><td> Carcinoma of right ovary 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</td><td> </td> 12/18/2020 10:30:00 AM EDT 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Carcinoma of right ov [facility] 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 Carcinoma of right ovary BLOOD COUNT COMPLETE AUTO&AUTO DIFRNTL WBC COUNT <td>C BC AND DIFFERENTIAL</td><td>Routine</td><td>11/25/2020 8:12 AM EDT</td><td> Carcinoma of right ovary 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</td><td> </td> 11/25/2020 08:12:00 AM EDT 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Carcinoma of right ov [facility] 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 Carcinoma of right ovary IMMUNOASSAY TUMOR ANTIGEN QUANTITATIVE CA 125 <td>CA 125</td><td>Routine</td><td>11/25/2020 8:12 AM EDT</td><td> Carcinoma of right ovary 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</td><td> </td> 11/25/2020 08:12:00 AM EDT 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Carcinoma of right ov [facility] 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 Carcinoma of right ovary COMPREHENSIVE METABOLIC PANEL <td>COMPREHENSIVE METABO LIC PANEL</td><td>STAT</td><td>11/25/2020 8:12 AM EDT</td><td> Carcinoma of right ovary 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</td><td> </td> 11/25/2020 08:12:00 AM EDT 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Carcinoma of right ov [facility] 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 Carcinoma of right ovary OFFICE OUTPATIENT VISIT 25 MINUTES 11/19/2020 12:00:00 AM EDT [facility] ([facility]) OFFICE OUTPATIENT VISIT 25 MINUTES 11/17/2020 12:00:00 AM EDT [facility] ([facility]) IRON <td>TOTAL FE BINDING CAPACIT Y</td><td>Routine</td><td>10/23/2020 8:50 AM EDT</td><td></td><td> </td> 10/23/2020 08:50:00 AM [facility] BLOOD COUNT COMPLETE AUTOMATED <td>CBC AND DIFFERENTIAL</td><td>Routine</td><td>10/23/2020 8:50 AM EDT</td><td></td><td> </td> 10/23/2020 08:50:00 AM [facility] FERRITIN <td>FERRITIN LEVEL</td><td>R outine</td><td>10/23/2020 8:50 AM EDT</td><td></td><td> </td> 10/23/2020 08:50:00 AM [facility] BASIC METABOLIC PANEL CALCIUM TOTAL <td>BASIC METABOLI C PANEL</td><td>Routine</td><td>10/23/2020 8:50 AM EDT</td><td></td><td> </td> 10/23/2020 08:50:00 AM T [facility] IRON <td>TOTAL FE BINDING CAPACIT Y</td><td>Routine</td><td>09/25/2020 8:15 AM EDT</td><td></td><td> </td> 09/25/2020 08:15:00 AM [facility] BLOOD COUNT COMPLETE AUTO&AUTO DIFRNTL WBC COUNT <td>C BC AND DIFFERENTIAL</td><td>Routine</td><td>09/25/2020 8:15 AM EDT</td><td> 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</td><td> </td> 09/25/2020 08:15:00 AM EDT 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 [facility] 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 IMMUNOASSAY TUMOR ANTIGEN QUANTITATIVE CA 125 <td>CA 125</td><td>Routine</td><td>09/25/2020 8:15 AM EDT</td><td> 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</td><td> </td> 09/25/2020 08:15:00 AM EDT 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 [facility] 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 FERRITIN <td>FERRITIN LEVEL</td><td>R outine</td><td>09/25/2020 8:15 AM EDT</td><td></td><td> </td> 09/25/2020 08:15:00 AM T [facility] COMPREHENSIVE METABOLIC PANEL <td>COMPREHENSIVE METABO LIC PANEL</td><td>STAT</td><td>09/25/2020 8:15 AM EDT</td><td> 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</td><td> </td> 09/25/2020 08:15:00 AM EDT 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 [facility] 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 BLOOD COUNT COMPLETE AUTO&AUTO DIFRNTL WBC COUNT <td>C BC AND DIFFERENTIAL</td><td>Routine</td><td>09/04/2020 8:30 AM EDT</td><td> 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</td><td> </td> 09/04/2020 08:30:00 AM EDT 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 [facility] 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 COMPREHENSIVE METABOLIC PANEL <td>COMPREHENSIVE METABO LIC PANEL</td><td>STAT</td><td>09/04/2020 8:30 AM EDT</td><td> 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</td><td> </td> 09/04/2020 08:30:00 AM EDT 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 [facility] 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 INSJ TUNNELED CTR VAD W/SUBQ PORT AGE 5 YR/> <td>IR VA SCULAR ACCESS INSERT OR REMOVAL</td><td>Routine</td><td>08/27/2020 9:25 AM EDT</td><td> 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</td><td></td> 08/27/2020 09:25:37 AM EDT 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 BLOOD COUNT COMPLETE AUTO&AUTO DIFRNTL WBC COUNT <td>C BC AND DIFFERENTIAL</td><td>Routine</td><td>08/27/2020 7:30 AM EDT</td><td></td><td> </td> 08/27/2020 07:30:00 AM EDT [facility] BLOOD COUNT COMPLETE AUTO&AUTO DIFRNTL WBC COUNT <td>C BC AND DIFFERENTIAL</td><td>Routine</td><td>08/25/2020 10:05 AM EDT</td><td> 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</td><td> </td> 08/25/2020 10:05:00 AM EDT 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 [facility] 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 COMPREHENSIVE METABOLIC PANEL <td>COMPREHENSIVE METABO LIC PANEL</td><td>Routine</td><td>08/25/2020 10:05 AM EDT</td><td> 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</td><td> </td> 08/25/2020 10:05:00 AM EDT 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 [facility] 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 ABDOM PARACENTESIS DX/THER W IMAGING GUIDANCE <td>IR I MAGE GUIDED NEEDLE DRAIN PROCEDURE</td><td>STAT</td><td>08/14/2020 1:11 PM EDT</td><td> 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</td><td> </td> 08/14/2020 01:11:22 PM EDT 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 [facility] 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 POCT ID NOW COVID-19 <td>POCT ID NOW COVID-19</td ><td>Routine</td><td>08/14/2020 11:52 AM EDT</td><td></td><td> </td> 08/14/2020 11:52:00 AM EDT [facility] PARTIAL THROMBOPLASTIN TIME (PTT) <td>PARTIAL THROMBOP LASTIN TIME (PTT)</td><td>STAT</td><td>08/07/2020 10:54 AM EDT</td><td> 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</td><td> </td> 08/07/2020 10:54:00 AM EDT 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 [facility] 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 PROTHROMBIN TIME <td>PROTIME INR</td><td>Rout ine</td><td>08/07/2020 10:54 AM EDT</td><td> 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</td><td> </td> 08/07/2020 10:54:00 AM EDT 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 [facility] 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 BLOOD COUNT COMPLETE AUTO&AUTO DIFRNTL WBC COUNT <td>C BC AND DIFFERENTIAL</td><td>Routine</td><td>08/07/2020 10:54 AM EDT</td><td> 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</td><td> </td> 08/07/2020 10:54:00 AM EDT 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 [facility] 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 COMPREHENSIVE METABOLIC PANEL <td>COMPREHENSIVE METABO LIC PANEL</td><td>STAT</td><td>08/07/2020 10:54 AM EDT</td><td> 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</td><td> </td> 08/07/2020 10:54:00 AM EDT 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 [facility] 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 ECG ROUTINE ECG W/LEAST 12 LDS W/I&R 08/06/2020 12:00: 00 AM EDT [facility] ([facility]) OFFICE OUTPATIENT NEW 45 MINUTES 08/06/2020 12:00:00 A M EDT [facility] ([facility]) URNLS DIP STICK/TABLET REAGENT AUTO MICROSCOPY <td>URI NALYSIS WITH MICROSCOPIC</td><td>Routine</td><td>07/07/2020 10:50 AM EST</td><td> Recurrent UTI</td><td> </td> 07/07/2020 10:50:00 AM EST Recurrent UTI [facility] Recurrent UTI Results ID Date Data Source [id number] 03/16/2021 09:29:04 PM EST [facility] Name Value Range Interpretation Code Description Data Deepa rce(s) Supporting Document(s) Progress Note [facility] KDJIQo4pFsDHOaUj51/SAMriSVFbk5ZfTFvsAUq6QMosTSTyT2DbHMJ8wR5dUUQ2WRsZLuTfKwXgACY9 m [file] ID Date Data Source [id number] 03/15/2021 02:39:21 PM [facility] Hospital Name Value Range Interpretation Code Description Data Deepa rce(s) Supporting Document(s) Progress Note [facility] XBLXGh0nTmAPWkMt57/LPXvkMXMyt2TcPBqcHKl4AQlkBTDgI3FiIQI1yR0sMJS3ZNqWEzHvApIvULP4 lbm [file] LhGC7OQq8KVcK1SAR7rFWnIw3TLoQaYYgSExGxUY8XUVw= ID Date Data Source [id number] 03/15/2021 02:39:16 PM [facility] Name Value Range Interpretation Code Description Data Deepa rce(s) Supporting Document(s) Progress Note [facility] FXSOYq6oApQHHyNx59/ISYvjTNOlr6QfBAajNTb5GUynKLZgI0CsJLQ6fG2zOHH9AHeITcWzVsNzVTA4 lbm [file] AgICAgICAgICAgICAgICAgICAgICAgICAgICAgICAg JIEiUOJtXSGoZY9SRUScWBMzPHZtRNOkKWNjVLVhEWYyIFFaDQVuYQHqAPVlWFPgZHLcWYVsJTHgXJZc SCCdCHMhKSHhAIJeXOYvKKEeAHXsNOZyYEUrULQrXJMuRTKpONEsVFHnBSYlXYDzKWLwGT3ECAXsGDOg ICAgICAgICAgICAgICAgICAgICAgICAgICAgICAgIC AgICAgICAgICAgICAgICAgICAgICAgICAgICAgICAgICAgICAgICAgICAgICAgICAgICAgICAgICAgIC WtHU8FETCmLVNfVBHeRUIdZVMkASUuOHGyEKSnDUCoJJDgMVKmUVBgRFIpVJMhUNOoGNUkAMTuYAWfGJ AgICAgICAgICAgICAgICAgICAgICAgICAgICAgICAg XVEzAIYyNDTeBZAaBU3QGMWhSAZnAQNuTRJrTLMbYJUzIDShMQVjBCAiFBRqWNWlTXKaQDWkLDMqKNVj KZOoORSyHTLbTHMmHPAuEAZkBNTsALBaVSCaNNWoYUTjHVQaBFPwJLWzSLWrGWGaFXPeJFHgZJ4CDMBs ICAgICAgICAgICAgICAgICAgICAgICAgICAgICAgIC AgICAgICAgICAgICAgICAgICAgICAgICAgICAgICAgICAgICAgICAgICAgICAgICAgICAgICAgICAgIC VtRGUoGV1GPVScWVOzBPXlYPNlTTFcLHVkASPkMEVoWODmESZyZTVzAATqAYTvVEQbBMWsLUBhQBPzYN AgICAgICAgICAgICAgICAgICAgICAgICAgICAgICAg YHWqRXLzXDUkYMXuBAWvOU8WIPZuMFBzRHYpYLYoWONjGKDqBFGhXEWkXAIpJSMeYHInHORsHWInBKHg YSXqJYUfJLVaPYWhTHAuTJDzGPJpVZGdFPJvKHOsYLLwQMMrYWXmGXBeFWUqEXWcJPUmOUXxAMJcOT8L ICAgICAgICAgICAgICAgICAgICAgICAgICAgICAgIC AgICAgICAgICAgICAgICAgICAgICAgICAgICAgICAgICAgICAgICAgICAgICAgICAgICAgICAgICAgIC NjWWMwNJJaFH6FUXIvTGEnWZRmZULbQJQgVIIrOCDdSBTyLILcNFFlMCCtHLSqWAAdWOVwEXZzUZQeGI AgICAgICAgICAgICAgICAgICAgICAgICAgICAgICAg WCLlRJCbRRQmHLYvGQVcMUNzMS2ITO02vVYdq9Y2XNDkKQ5kfjw/Io8TYWmbpzCnoUJdND1NTiEaGH9h fm7QLzDjEX5zla7MXXbKKaGuY0K8xMSmOPNkHHZEWoFrJ79bERtrGz29EImySVVzGmNeGUd8Kf6UGuTo J7jwYRZtXkS0YXKtUyL3KWFyDqMbQAWlYZErBWTbPV UIZLH7MNMbCpSsHhDzKNAcKYcwTLHIXKDzQKQuEgGiCUrwHN9Km5LykQJ9TPz+Ip0LOP5vq3EvDVxaJk QfBN0lap1WJOfGRmNrS3BmbxJ9WME5FMOpSf8GNZSvZFKfzFShQTIiUKBIHeXjM1RgrV14VWNQFb9+DQ ovfpJiYzsXIoU3WGGua4OoNCg8VP6XKRHfQJe8vWWa PFAyM2Wyj4ElHa91ZBFcDuwpVMrzUNrqvlgvFWABIwXQJMC2CRvhLyUmWkLnTPGaEPysYJYFVPdJSkAu C0Klk9RdUuD3TUIiImBfRKirKZOsOdC6XR11jQmjJB1TINYnGZLhTZ99SHC5YGNgPu7WUs4RPpEuXN4t ki0WTyDyCW2xiv9HDWjLHsNiN9H7mZGuC6Jzud57JE 7ZeSS5lOApOH3NgA7kYH5Ci7WjEKCgQyGbEGHgYXNfVQDoXUQsYcJuNZ4WFGJwMoAfuRViKJKrWOC8XB UbDlI4PQKqEM4TSPMlRIA0DB2MOG3AVyrmH0ZVQBsdiBivOwLGFYX/AQGLTIHWFTtkSNPlM42SZ2TDUL aZIgnoMApHUmbqPb2tPOj+Ph6OFG5kg3QkBJrtGCDy LY0emu6UPWqGEmJxD1Z9gHTdE9X6EZsnNl6EJGZhJPLeVbJiVFYRPThuVN3OFM0ckyT2VY1EqTWjFSXc NSJdcPQqMWs8Z59psMQpCDztAC8OVWE+Justina+Zx4NYWOdBQKnSEPaSlFiVFQUAdJgR9WgU7GOk6BuT6Vh MX22lUpbmvNhBMpsVM0LMO7kCNXyFXZCPK2RkEXknZ 6dqfDwHpOvHXNWAbWmB16smKWdAAXaUFS4XDCuUq6PFRCcP1PnogPaqBjsmbEsUGDbHWWJGV6YAGoqbo MooGMsrLcqUY81rTicRG8VEt5ROiYyNN9rfm3PyXYfJz5MSXX8GX0YNNZqTULdMCAbTHU0WBBbLwYyOO qaDOYzLSTlFSO5KXFrOKJiDJ3NMpCrVUTfNRN3QhPl ETUrLSSltd8SVWOxSFZ8APQjHKWbVDYaXHRhSUwyLSTePMIuZGT1WHQkRSVgEZ8CMkTiMOKqJNLzYwrn TFSvQTEzxn0EPKSkEFM3YNN6CfTkASAhXSUnKSysOCLnVYVvABh4BNEcKVZeOU9CWgRgNNCqMSy1ThZw QTGhVJLsnj0XNJQlNJIqSpqwXxIwOTMwIXQaPEiiIR IvSOWrLVSvDVNlSDWaNT0GRvOlPZVfJMH9LPDtIYBpGUAhqf2SWSHuOZSqYIKlINXzHZAmBASySRseFU ImWEM0LuTuXXGsOOPnMY0ORpOmRQHoAOlyNvMtOXYvMDOpwf9THMLjKOJbTIReRlNsWOXrXIPdPSdpMC QaSWYnEUAsCIKoUCLvCR7RIdMiAZJqWaG1ArwdVKHj DQIyyb7FEEXtLIZaRPW0NjEaLSErLUNfVGvaNVRnELO6TOj4SDTyAKSwVG1ZNaFhFUWuTmN8OQcvGHGy MVEktx4PRETkMMTvLhK8HRUsRGXwBLDsNOeaFVMaOCD0EUW9NLHaQTZkJO7SYbNuHOTpMsaxSYUhPGMf FQRzio0HMJLnSJCuKHDbTXTkMXHoORFpYEeoOTLuMA O2LnvxTWMtKLZiKD0OBkOuSQRwQyz2XONxCUCdNCAign9APAUkIPDoLYu4AgCwIGDpTKUbMGcwDJLvKS BkUqZvIUBjCOWbEO4LVgUbNLBiBQS9BxzmQBUpFYMkml3PTFJnITP7CEs0LkMsKBWdIKJtPUqhWCKqRL AmLTw4MDOfVADgCU2KRqKgBIDlTNWpUKPfEWYtUAGf qf6MXGBaUSJ8AmY8MoJcJGFpEDPkNCovRBWnEEXcKpn1AKYoWCWxBZ8LOpFdSKOlULV3GCEwVAVmEVBp fe3PHVLfCJS0Izs3OYPgPKHcYIQbUUupOMTdHOQ1UzT7UFEeEPClHN8JJeRvSCEbZGH4DgrwGEXrLKCk zs1BSFMnWYI2JFg0IUCaTAXcEFJwCWa0bbPezHYfWO j9GU0RG2JgjeKpLLWGBs3Rj286ZKI6DSNvHd2YY0taCk5uXKGvWYZTYs9AJCo2QQFoMJZgNRG2YjTdBJ CcRtT4HEgkGnpnLCllZmQ6WGX+DBddNHC2OmR9LyGhPrV9I2KtTjL4R2BqARXpZXZ6OPQmXv0wUCFYPe 4+LJoyhICmdKexQCIPUcM9QLfoIEaoDPDAPm4D ID Date Data Source [id number] 03/12/2021 12:27:20 PM EDT [facility] Name Value Range Interpretation Code Description Data Deepa rce(s) Supporting Document(s) Progress Note [facility] ZFCNVa8vVsLXAtZx30/RWJceHLWgl1JlMMxhIMi5KXwpFXBjW3PtRSM2pW8bCLC6EDiLUaCrSgPnLGU5 lbm [file] X4WvY6SSB2P3GgLHOzRAWuIsU5OpAsNX7SRf5GJiV5OKG8kRMaFz4FHbSoFfhQSxJkQS1KCAc= ID Date Data Source [id number] 03/10/2021 11:52:42 AM EDT [facility] Name Value Range Interpretation Code Description Data Deepa e(s) Supporting Document(s) Leukocytes [#/volume] in Blood by Automated count 3.9 10*3/uL 4-10 L [facility] Erythrocytes [#/volume] in Blood by Automated count 3.05 10*6/uL 4.1- 5.3 L [facility] Hemoglobin [Mass/volume] in Blood 10.2 g/dL 11.5-15.5 L [facility] Hematocrit [Volume Fraction] of Blood by Automated count 30.6 % 3 6-45 L [facility] Erythrocyte mean corpuscular volume [Entitic volume] b y Automated count 100.1 fL 80-96 H [facility] Erythrocyte mean corpuscular hemoglobin [Entitic mass] by Automated count 33.5 pg 27-33 H [facility] Erythrocyte mean corpuscular hemoglobin concentration [Mass/volume] by Automated count 33.5 g/dL 32.0-36.0 [facility] E[facility]throcyte distribution width [Ratio] by Automated count 17.8 % 11.5-14.5 H [facility] Platelets [#/volume] in Blood by Automated count 88 10*3/uL 150-400 L [facility] Differential cell count method - Blood [facility] Neutrophils/100 leukocytes in Blood by Automated count 56 % [facility] Lymphocytes/100 leukocytes in Blood by Automated count 32 % [facility] Monocytes/100 leukocytes in Blood by Automated count 10 % [facility] Eosinophils/100 leukocytes in Blood by Automated count 2 % [facility] Basophils/100 leukocytes in Blood by Automated count 0 % [facility] Neutrophils [#/volume] in Blood by Automated count 2.12 10*3/uL 1.8-7 .0 [facility] Lymphocytes [#/volume] in Blood by Automated count 1.25 10*3/uL 1.2-4 .0 [facility] Monocytes [#/volume] in Blood by Automated count 0.40 10*3/uL 0-0.8 [facility] Eosinophils [#/volume] in Blood by Automated count 0.09 10*3/uL 0-0.5 [facility] Basophils [#/volume] in Blood by Automated count 0.01 10*3/uL 0-0.2 [facility] Nucleated erythrocytes/100 leukocytes [Ratio] in Blood by Automated count 0 /100{WBCs} 0-0 [facility] ID Date Data Source [id number] 02/28/2021 02:45:00 PM EDT [facility] Name Value Range Interpretation Code Description Data Deepa rce(s) Supporting Document(s) SARS-CoV-2 RNA Resp Ql PEBBLES+probe NOT DETECTED [facility] This lab was ordered by GARY chen and reported by GARY Villa. ID Date Data Source [id number] 02/24/2021 10:36:53 AM EDT [facility] Name Value Range Interpretation Code Description Data Deepa rce(s) Supporting Document(s) ABO and Rh group [Type] in Blood [facility] Blood group antibody screen [Presence] in Serum or Plasma [facility] Blood bank comment [facility] ID Date Data Source [id number] 02/24/2021 08:54:14 AM EDT [facility] Name Value Range Interpretation Code Description Data Deepa rce(s) Supporting Document(s) Leukocytes [#/volume] in Blood by Automated count 3.1 10*3/uL 4-10 L [facility] Erythrocytes [#/volume] in Blood by Automated count 2.82 10*6/uL 4.1- 5.3 L [facility] Hemoglobin [Mass/volume] in Blood 9.6 g/dL 11.5-15.5 L [facility] Hematocrit [Volume Fraction] of Blood by Automated count 27.7 % 3 6-45 L [facility] Erythrocyte mean corpuscular volume [Entitic volume] by Auto mated count 98.0 fL 80-96 H [facility] Erythrocyte mean corpuscular hemoglobin [Entitic mass] by Automated count 34.0 pg 27-33 H [facility] Erythrocyte mean corpuscular hemoglobin concentration [Mass/volume] by Automated count 34.7 g/dL 32.0-36.0 [facility] Erythrocyte distribution width [Ratio] by Automated count 21.4 % 11.5-14.5 H [facility] Platelets [#/volume] in Blood by Automated count 51 10*3/uL 150-400 L [facility] Differential cell count method - Blood [facility] Neutrophils/100 leukocytes in Blood by Automated count 46 % [facility] Lymphocytes/100 leukocytes in Blood by Automated count 40 % [facility] Monocytes/100 leukocytes in Blood by Automated count 12 % [facility] Eosinophils/100 leukocytes in Blood by Automated count 2 % [facility] Basophils/100 leukocytes in Blood by Automated count 0 % [facility] Neutrophils [#/volume] in Blood by Automated count 1.42 10*3/uL 1.8-7 .0 [facility] Lymphocytes [#/volume] in Blood by Automated count 1.25 10*3/uL 1.2-4 .0 [facility] Monocytes [#/volume] in Blood by Automated count 0.38 10*3/uL 0-0.8 [facility] Eosinophils [#/volume] in Blood by Automated count 0.05 10*3/uL 0-0.5 [facility] Basophils [#/volume] in Blood by Automated count 0.01 10*3/uL 0-0.2 [facility] Nucleated erythrocytes/100 leukocytes [Ratio] in Blood by Automated count 0 /100{WBCs} 0-0 [facility] ID Date Data Source [id number] 02/24/2021 09:38:37 AM EDT [facility] Name Value Range Interpretation Code Description Data Deepa rce(s) Supporting Document(s) Albumin [Mass/volume] in Serum or Plasma by Bromocresol green (BCG) dye binding method 4.4 g/dL 3.5-5.2 [facility] Bilirubin.total [Mass/volume] in Serum or Plasma 0.5 mg/dL <1.2 [facility] Calcium [Mass/volume] in Serum or Plasma 11.0 mg/dL 8.8-10.2 H [facility] Chloride [Moles/volume] in Serum or Plasma 100 mmol/L 98-107 [facility] Creatinine [Mass/volume] in Serum or Plasma 0.56 mg/dL 0.50-0.90 [facility] Glucose [Mass/volume] in Serum or Plasma 105 mg/dL 70-140 [facility] Alkaline phosphatase [Enzymatic activity/volume] in Serum or Plasma 76 U/L 35-104 [facility] Potassium [Moles/volume] in Serum or Plasma 3.6 mmol/L 3.4-5.1 [facility] Protein [Mass/volume] in Serum or Plasma 6.9 g/dL 6.4-8.3 [facility] Sodium [Moles/volume] in Serum or Plasma 136 mmol/L 136-145 [facility] Aspartate aminotransferase [Enzymatic activity/volume] in Serum or Plasma 18 U/L <32 [facility] Urea nitrogen [Mass/volume] in Serum or Plasma 15 mg/dL 8-23 [facility] Osmolality of Serum or Plasma by calculation 284 mosm/kg 275-300 [facility] Creatinine/Urea nitrogen [Mass Ratio] in Serum or Plasma 26 [facility] Bicarbonate [Moles/volume] in Serum 26 mmol/L 22-29 [facility] Alanine aminotransferase [Enzymatic activity/volume] in Seru m or Plasma 14 U/L <33 [facility] Anion gap 3 in Serum or Plasma 11 mmol/L 8-15 [facility] Glomerular filtration rate/1.73 sq M pre dicted among non-blacks [Volume Rate/Area] in Serum or Plasma by Creatinine-based formula (MDRD) >6 0 [facility] Glomerular filtration rate/1.73 sq M pre dicted among blacks [Volume Rate/Area] in Serum or Plasma by Creatinine-based formula (MDRD) >60 [facility] ID Date Data Source [id number] 02/20/2021 03:19:50 PM EDT [facility] Name Value Range Interpretation Code Description Data Deepa rce(s) Supporting Document(s) Progress Note [facility] UEGLPg1kBhMDNcCn98/TKBwcKIAhu2HjDMogRRr5ACilJFIfN3LsAUT9nB8aOOA8JQsEXvFrDcMfAEL5 lbm BvFyoCDcKgDHEvOxgTEmBcNOguNpikkWSwDL2NrTS7RHTgB15fDCXxHXZiK7ZmXCBxHHI+Gs7HLINvtL VfIS3ZEplI9K4Bznq8Fc3cOG4UxQKFjHFfX/jgVBXVw371O6k6H6xN1ILxtPVVxCPXpaP389jS4QLctw tCf+jmAcclrHcJULAZZtf4p2hlFtg3i3vTKllo5Qy/ +b9ghjDIzjunO5Hzqnfmb34+IV7VR03CT9IdRrbjmy//9HMBTnhnkOy8cQXmWK6JIMtdK0NUlFX813sg zhnRJx4n6CA4Jv/etYf6Ajx+oF0nfP/99+shannon/BiJW2tKNB9wp/TYJ6ZAndp2PcPcxjjMGqf8I35cAHj T7cVNqXFbL8sVh5qKyYU6VjkgDOcJCvWT7W3Ak6TP7 Vqt/+ll4wV7ATSEwf1aeKFov9DGPMT/pioDY3d8D0chY6W6eX9TkaREjjh42XDrKGolelWkKB05EjqlD IbR23am6MIJHdbwCOcHzjzfR8Yw0A83znf4+6moBfv1ubgN0bhyhFyiWIGj2c+Sz/Ob5JJiJ/yPS6Kdw nUW1b548M0QD893Qm21fP9gGBdn6sIOhV7zFDu2Hg6 [file] 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 NVPEMn3tHjDJXkZd63/SAUmeCCYpy5YwXDyeOTk1SSthNDOnC4PaIPH8uM9bKLW0JOmTQgQiSbNfILE6 lbm [file] AcQfDJ0YAb9QGsG2RVT8iCBjPz1VJNK9QJxDBpNpAK3VIWm= ID Date Data Source [id number] 02/17/2021 10:01:39 AM EDT [facility] Name Value Range Interpretation Code Description Data Deepa rce(s) Supporting Document(s) Leukocytes [#/volume] in Blood by Automated count 3.1 10*3/uL 4-10 L [facility] Erythrocytes [#/volume] in Blood by Automated count 2.76 10*6/uL 4.1- 5.3 L [facility] Hemoglobin [Mass/volume] in Blood 9.2 g/dL 11.5-15.5 [facility] Hematocrit [Volume Fraction] of Blood by Automated count 26.8 % 3 6-45 L [facility] Erythrocyte mean corpuscular volume [Entitic volume] by Auto mated count 97.1 fL 80-96 H [facility] Erythrocyte mean corpuscular hemoglobin [Entitic mass] by Automated count 33.4 pg 27-33 [facility] Erythrocyte mean corpuscular hemoglobin concentration [Mass/volume] by Automated count 34.4 g/dL 32.0-36.0 [facility] Erythrocyte distribution width [Ratio] by Automated count 20.0 % 11.5-14.5 H [facility] Platelets [#/volume] in Blood by Automated count 23 10*3/uL 150-400 [facility] No significant change since last result called Differential cell count method - Blood [facility] Neutrophils/100 leukocytes in Blood by Automated count 48 % [facility] Lymphocytes/100 leukocytes in Blood by Automated count 41 % [facility] Monocytes/100 leukocytes in Blood by Automated count 10 % [facility] Eosinophils/100 leukocytes in Blood by Automated count 1 % [facility] Basophils/100 leukocytes in Blood by Automated count 0 % [facility] Neutrophils [#/volume] in Blood by Automated count 1.49 10*3/uL 1.8-7 .0 L [facility] Lymphocytes [#/volume] in Blood by Automated count 1.28 10*3/uL 1.2-4 .0 [facility] Monocytes [#/volume] in Blood by Automated count 0.32 10*3/uL 0-0.8 [facility] Eosinophils [#/volume] in Blood by Automated count 0.02 10*3/uL 0-0.5 [facility] Basophils [#/volume] in Blood by Automated count 0.00 10*3/uL 0-0.2 [facility] Nucleated erythrocytes/100 leukocytes [Ratio] in Blood by Automated count 0 /100{WBCs} 0-0 [facility] ID Date Data Source [id number] 02/17/2021 09:45:00 AM EDT [facility] ([facility]) Name Value Range Interpretation Code Description Data Deepa rce(s) Supporting Document(s) Thyrotropin [Units/volume] in Serum or Plasma by Detec tion limit <= 0.05 mIU/L 1.050 u[IU]/mL 0.270-4.200 [facility] ([facility]) Calcidiol [Mass/volume] in Serum or Plasma 39 ng/mL [facility] ([facility]) ID Date Data Source [id number] 02/17/2021 09:33:35 PM EDT [facility] Value Range Interpretation Code Description Data Deepa rce(s) Supporting Document(s) Calcidiol [Mass/volume] in Serum or Plasma 39 ng/mL >30 [facility] ID Date Data Source [id number] 02/17/2021 01:37:14 PM [facility] Value Range Interpretation Code Description Data Deepa rce(s) Supporting Document(s) Thyrotropin [Units/volume] in Serum or Plasma 1.050 u[IU]/mL 0.270-4. 200 [facility] ID Date Data Source [id number] 02/12/2021 11:29:16 AM [facility] Name Value Range Interpretation Code Description Data Deepa rce(s) Supporting Document(s) Progress Note [facility] [id number] [facility] [file] [id number]= ID Date Data Source [id number] 02/14/2021 01:02:16 AM EDT [facility] Name Value Range Interpretation Code Description Data Deepa rce(s) Supporting Document(s) Blood bank comment [facility] ID Date Data Source [id number] 02/12/2021 12:23:55 PM EDT [facility] Name Value Range Interpretation Code Description Data Deepa rce(s) Supporting Document(s) Blood group antibodies identified in Serum or Plasma [facility] Blood bank comment [facility] ID Date Data Source [id number] 02/12/2021 12:23:29 PM EDT [facility] Name Value Range Interpretation Code Description Data Deepa rce(s) Supporting Document(s) ABO and Rh group [Type] in Blood [facility] Inconclusive Result, repeat testing requ ired. Blood bank comment [facility] Inconclusive Result, repeat testing requ ired. Service comment [facility] ID Date Data Source [id number] 02/12/2021 09:53:45 AM EDT [facility] Name Value Range Interpretation Code Description Data Deepa rce(s) Supporting Document(s) Leukocytes [#/volume] in Blood by Automated count 3.8 10*3/uL 4-10 L [facility] Erythrocytes [#/volume] in Blood by Automated count 2.81 10*6/uL 4.1- 5.3 [facility] Hemoglobin [Mass/volume] in Blood 9.2 g/dL 11.5-15.5 [facility] Hematocrit [Volume Fraction] of Blood by Automated count 27.2 % 3 6-45 L [facility] Erythrocyte mean corpuscular volume [Entitic volume] by Auto mated count 96.6 fL 80-96 H [facility] Erythrocyte mean corpuscular hemoglobin [Entitic mass] by Automated count 32.8 pg 27-33 [facility] Erythrocyte mean corpuscular hemoglobin concentration [Mass/volume] by Automated count 33.9 g/dL 32.0-36.0 [facility] Erythrocyte distribution width [Ratio] by Automated count 18.8 % 11.5-14.5 [facility] Platelets [#/volume] in Blood by Automated count 17 10*3/uL 150-400 [facility] No significant change since last result called Differential cell count method - Blood [facility] Neutrophils/100 leukocytes in Blood by Automated count 62 % [facility] Lymphocytes/100 leukocytes in Blood by Automated count 29 % [facility] Monocytes/100 leukocytes in Blood by Automated count 8 % [facility] Eosinophils/100 leukocytes in Blood by Automated count 1 % [facility] Basophils/100 leukocytes in Blood by Automated count 0 % [facility] Neutrophils [#/volume] in Blood by Automated count 2.38 10*3/uL 1.8-7 .0 [facility] Lymphocytes [#/volume] in Blood by Automated count 1.09 10*3/uL 1.2-4 .0 L [facility] Monocytes [#/volume] in Blood by Automated count 0.32 10*3/uL 0-0.8 [facility] Eosinophils [#/volume] in Blood by Automated count 0.03 10*3/uL 0-0.5 [facility] Basophils [#/volume] in Blood by Automated count 0.00 10*3/uL 0-0.2 [facility] Nucleated erythrocytes/100 leukocytes [Ratio] in Blood by Automated count 0 /100{WBCs} 0-0 [facility] ID Date Data Source [id number] 02/12/2021 09:33:01 AM EDT [facility] Name Value Range Interpretation Code Description Data Deepa rce(s) Supporting Document(s) Progress Note [facility] [id number]/DERyfTXNpd3BaMDosCVs6XWrdDDPcX2SiREH8uG9eZCG1CEdIKrJaJsEuMHF8 lbm [file] AgICAgICAgICAgICAgICAgICAgICAgICAgICAgICAg ICAgICAgICAgICAgICAgICAgICAgICAgICANCiAgICAgICAgICAgICAgICAgICAgICAgICAgICAgICAg ICAgICAgICAgICAgICAgICAgICAgICAgICAgICAgICAgICAgICAgICAgICAgICAgICAgICAgICAgICAg ICAgICAgICANCiAgICAgICAgICAgICAgICAgICAgIC AgICAgICAgICAgICAgICAgICAgICAgICAgICAgICAgICAgICAgICAgICAgICAgICAgICAgICAgICAgIC AgICAgICAgICAgICAgICAgICANCiAgICAgICAgICAgICAgICAgICAgICAgICAgICAgICAgICAgICAgIC AgICAgICAgICAgICAgICAgICAgICAgICAgICAgICAg ICAgICAgICAgICAgICAgICAgICAgICAgICAgICANCiAgICAgICAgICAgICAgICAgICAgICAgICAgICAg ICAgICAgICAgICAgICAgICAgICAgICAgICAgICAgICAgICAgICAgICAgICAgICAgICAgICAgICAgICAg ICAgICAgICAgICANCiAgICAgICAgICAgICAgICAgIC AgICAgICAgICAgICAgICAgICAgICAgICAgICAgICAgICAgICAgICAgICAgICAgICAgICAgICAgICAgIC AgICAgICAgICAgICAgICAgICAgICANCiAgICAgICAgICAgICAgICAgICAgICAgICAgICAgICAgICAgIC AgICAgICAgICAgICAgICAgICAgICAgICAgICAgICAg ICAgICAgICAgICAgICAgICAgICAgICAgICAgICAgICANCiAgICAgICAgICAgICAgICAgICAgICAgICAg ICAgICAgICAgICAgICAgICAgICAgICAgICAgICAgICAgICAgICAgICAgICAgICAgICAgICAgICAgICAg ICAgICAgICAgICAgICANCiAgICAgICAgICAgICAgIC AgICAgICAgICAgICAgICAgICAgICAgICAgICAgICAgICAgICAgICAgICAgICAgICAgICAgICAgICAgIC AgICAgICAgICAgICAgICAgICAgICAgICANCiAgICAgICAgICAgICAgICAgICAgICAgICAgICAgICAgIC AgICAgICAgICAgICAgICAgICAgICAgICAgICAgICAg ICAgICAgICAgICAgICAgICAgICAgICAgICAgICAgICAgICANCjw/gXJfZ6bngXQtxjZ9C5hiIu1TMs8R DP3ym2NlZELlVNgptgHyBmqJBxTkHREiWcmGVer7SKapPB9ThWTpZ9VwP3QaKHalBY4PCDZcVYWgmMVp IWNnTZFdRhP8ANNnKZjaCE8YbJPzGFhkGHOfNLFcBR 7IYLYdK330ohPjNR1SAt0IPlUjED4xmi9VMoWzOUFvDrxSBak3CBmyOT3KmYNxlVAaVjKuMKCODjEeL6 jmn8QkUiAsULYOPGbaIN6Qk6TwvLOdPZx+Uu7DZW5gr0HsLNrsIwHyXX1sdu5WVEsJTbCoZ5FnqYccKU Gcn6esQHVyJC4gjUBjSTV4LOMrqxvrMDopNEldfddn hLkwCFCgEGRnGUXsTi2cHNHsOWT0HqN9RDEYGX4VUXHzDNEmcIHcMKRlQTLDPB0QAKfyEER7UUWfntVd aQVtTSemPR7ODQGlbaEzRwDfGAHYUMy+Hl0SPJ2da8CfGWsiTUDeAZ5tvy9WBNhZFgSnL4Q8wEQkN8B9 ZRedHn5HAIUfKUUuJrHbTNADABlgDQ7PGG3qmnC8OD 8LnDHqHMHzBVPinECxEKy4P35caOXjQBjpDK0AQNY+Justina+Vv1FZBLcIMAaGEFtJyVcCWFMEoRwL0KvC7 EUs4LtN6QiQA84yHpqdsAmVOkrYR2SBO4iBTRjIGVCSN2ClMZtiZ2iugAoIhKgVHYOZxXzQ81wtXZjJL NwBDVrPOXbOm7GMYQaC3WqckEkeRfozjYbMFYzJCOM YQ0YVCdlniTncSBxaGrtEH31aNjgQL1LMq0KGdFaNF1foh8EjKJmXe9CHSArGR5TIYClTWCjOKDtBFI6 WIJxJfHvODcuNNCfWPVcSNZ9USGvXJXzLZ1GHoXgEFXzCNn6MWRpILLeHMFaso9GWOHwYABeXCD5URPn BXBwIWKiRTwhVSChRXIzJUV0VNXzISIlUL9DHaRaDD PuURWbKNNqYZBpNDVfdy1KOIKoHPGyRyV1FGGkIDZsLTNmEEmmKALvOPE2RvU8MYOqQHUbFV0MXnMmFQ OvGLL6JFOxWOFjURVohf7ETGAyEGHgVXCnNWIfPAQlRIIkCEwmESOxAHW9QKiiNIFbJKGhZG8XUtIgET SwEJC9NWRtWXKeYAObgx9YUXCrJCAdNXf8XGRzTAHs OBQrHYqsNZAwGST1VtV1SKJqNIFuGA7KIkCpPTYkPHl5ISRiZWAlXKGxlz4ROCLjSTUqOlm9RSOaFPXr AUNmCFbmEXLlPME3FFbuTCRqYIEbVY3HSpLcMVAsESamNwdmFAIgUHJttj2QJPYeBFWoATZ5EXQcRQDk ZNBiCNtjZUCsKZP3UjCzVAQcEKJiUB4ILuHwKTBlPW x4SfCsKMWdZLBehh6FTPQiSXZhESn4DYXiXTGlQASbREmmHLDwYWCzUjr7LQWbZGEmUD9SGoRgAORfXc Y9BEhvWMHoHRGaam6CNVJkUIVaBMRoDKBvQBDuMNHnZUb6hkEbwKYgMRs3MP3UF4CgfxGnKbBYYg0Po3 16BGJ4RXKtXu0QE2huGi8uTCRrVNXQKj6LNOy1Ibs3 TAW0IMT3LBIoPeX7SBWhVnFpCYBuEqDiVABuTvV+ECziPLNrYmY3OvVwKNCcJgCbANNmDCUuJNF7SWG6 VMX1CA6eMCQFCv8+FNhhtLBrpVylWLESIfRhTMFrNUguQODMHb3C ID Date Data Source [id number] 02/12/2021 09:32:56 AM EDT [facility] Name Value Range Interpretation Code Description Data Deepa rce(s) Supporting Document(s) Progress Note [facility] [id number]BJkBAbYdGbPoAPQ7 lbm [file] edYs4M7gEotbJL7vpEZs4u0eT7hyxxNqiECnuUXY2YUmCf00pDvGT5S0Dt+0iH+rR+ekqRXluegG+PATIENT SITTER+ [file] [id number]6WJU9jTSjIn2DRWgvJntBLkMrJM4CHCl= ID Date Data Source [id number] 02/10/2021 02:18:29 PM EDT [facility] Name Value Range Interpretation Code Description Data Deepa rce(s) Supporting Document(s) Leukocytes [#/volume] in Blood by Automated count 5.1 10*3/uL 4-10 [facility] Erythrocytes [#/volume] in Blood by Automated count 2.81 10*6/uL 4.1- 5.3 L [facility] Hemoglobin [Mass/volume] in Blood 9.2 g/dL 11.5-15.5 L [facility] Hematocrit [Volume Fraction] of Blood by Automated count 27.0 % 3 6-45 L [facility] Erythrocyte mean corpuscular volume [Entitic volume] by Auto mated count 96.2 fL 80-96 H [facility] Erythrocyte mean corpuscular hemoglobin [Entitic mass] by Automated count 32.7 pg 27-33 [facility] Erythrocyte mean corpuscular hemoglobin concentration [Mass/volume] by Automated count 34.0 g/dL 32.0-36.0 [facility] Erythrocyte distribution width [Ratio] by Automated count 18.3 % 11.5-14.5 H [facility] Platelets [#/volume] in Blood by Automated count 20 10*3/uL 150-400 [facility] Called to and read back bySamira HOLLAND at 1418 by 1472 Differential cell count method - Blood [facility] Neutrophils/100 leukocytes in Blood by Automated count 58 % [facility] Lymphocytes/100 leukocytes in Blood by Automated count 32 % [facility] Monocytes/100 leukocytes in Blood by Automated count 9 % [facility] Eosinophils/100 leukocytes in Blood by Automated count 1 % [facility] Basophils/100 leukocytes in Blood by Automated count 0 % [facility] Neutrophils [#/volume] in Blood by Automated count 2.93 10*3/uL 1.8-7 .0 [facility] Lymphocytes [#/volume] in Blood by Automated count 1.64 10*3/uL 1.2-4 .0 [facility] Monocytes [#/volume] in Blood by Automated count 0.46 10*3/uL 0-0.8 [facility] Eosinophils [#/volume] in Blood by Automated count 0.04 10*3/uL 0-0.5 [facility] Basophils [#/volume] in Blood by Automated count 0.01 10*3/uL 0-0.2 [facility] Nucleated erythrocytes/100 leukocytes [Ratio] in Blood by Automated count 0 /100{WBCs} 0-0 [facility] ID Date Data Source [id number] 02/03/2021 03:53:53 PM [facility] Name Value Range Interpretation Code Description Data Deepa rce(s) Supporting Document(s) Leukocytes [#/volume] in Blood by Automated count 4.9 10*3/uL 4-10 [facility] Erythrocytes [#/volume] in Blood by Automated count 2.91 10*6/uL 4.1- 5.3 L [facility] Hemoglobin [Mass/volume] in Blood 9.5 g/dL 11.5-15.5 L [facility] Hematocrit [Volume Fraction] of Blood by Automated count 27.8 % 3 6-45 L [facility] Erythrocyte mean corpuscular volume [Entitic volume] by Auto mated count 95.4 fL 80-96 [facility] Erythrocyte mean corpuscular hemoglobin [Entitic mass] by Automated count 32.7 pg 27-33 [facility] Erythrocyte mean corpuscular hemoglobin concentration [Mass/volume] by Automated count 34.2 g/dL 32.0-36.0 [facility] Erythrocyte distribution width [Ratio] by Automated count 18.4 % 11.5-14.5 H [facility] Platelets [#/volume] in Blood by Automated count 59 10*3/uL 150-400 L [facility] Confirmed Differential cell count method - Blood [facility] Neutrophils/100 leukocytes in Blood by Automated count 35 % [facility] Lymphocytes/100 leukocytes in Blood by Automated count 37 % [facility] Monocytes/100 leukocytes in Blood by Automated count 22 % [facility] Eosinophils/100 leukocytes in Blood by Automated count 1 % [facility] Neutrophils [#/volume] in Blood by Automated count 1.72 10*3/uL 1.8-7 .0 L [facility] Lymphocytes [#/volume] in Blood by Automated count 1.81 10*3/uL 1.2-4 .0 [facility] Monocytes [#/volume] in Blood by Automated count 1.08 10*3/uL 0-0.8 H [facility] Eosinophils [#/volume] in Blood by Automated count 0.05 10*3/uL 0-0.5 [facility] Band form neutrophils/100 leukocytes in Blood by Manual count 5 % [facility] Band form neutrophils [#/volume] in Blood by Manual count 0.25 10*3 /uL 0-0.6 [facility] Dohle body [Presence] in Blood by Light microscopy [facility] ID Date Data Source [id number] 01/27/2021 01:19:29 PM EDT [facility] Name Value Range Interpretation Code Description Data Deepa rce(s) Supporting Document(s) Albumin [Mass/volume] in Serum or Plasma by Bromocresol green (BCG) dye binding method 4.3 g/dL 3.5-5.2 [facility] Bilirubin.total [Mass/volume] in Serum or Plasma 0.5 mg/dL <1.2 [facility] Calcium [Mass/volume] in Serum or Plasma 10.6 mg/dL 8.8-10.2 H [facility] Chloride [Moles/volume] in Serum or Plasma 102 mmol/L 98-107 [facility] Creatinine [Mass/volume] in Serum or Plasma 0.59 mg/dL 0.50-0.90 [facility] Glucose [Mass/volume] in Serum or Plasma 116 mg/dL 70-140 [facility] Alkaline phosphatase [Enzymatic activity/volume] in Serum or Plasma 74 U/L 35-104 [facility] Potassium [Moles/volume] in Serum or Plasma 3.7 mmol/L 3.4-5.1 [facility] Protein [Mass/volume] in Serum or Plasma 7.1 g/dL 6.4-8.3 [facility] Sodium [Moles/volume] in Serum or Plasma 137 mmol/L 136-145 [facility] Aspartate aminotransferase [Enzymatic activity/volume] in Serum or Plasma 18 U/L <32 [facility] Urea nitrogen [Mass/volume] in Serum or Plasma 17 mg/dL 8-23 [facility] Osmolality of Serum or Plasma by calculation 287 mosm/kg 275-300 [facility] Creatinine/Urea nitrogen [Mass Ratio] in Serum or Plasma 29 [facility] Bicarbonate [Moles/volume] in Serum 26 mmol/L 22-29 [facility] Alanine aminotransferase [Enzymatic activity/volume] in Seru m or Plasma 15 U/L <33 [facility] Anion gap 3 in Serum or Plasma 9 mmol/L 8-15 [facility] Glomerular filtration rate/1.73 sq M pre dicted among non-blacks [Volume Rate/Area] in Serum or Plasma by Creatinine-based formula (MDRD) >6 0 [facility] Glomerular filtration rate/1.73 sq M pre dicted among blacks [Volume Rate/Area] in Serum or Plasma by Creatinine-based formula (MDRD) >60 [facility] ID Date Data Source [id number] 01/27/2021 09:38:24 AM T [facility] Name Value Range Interpretation Code Description Data Deepa rce(s) Supporting Document(s) Leukocytes [#/volume] in Blood by Automated count 3.1 10*3/uL 4-10 L [facility] Erythrocytes [#/volume] in Blood by Automated count 3.15 10*6/uL 4.1- 5.3 L [facility] Hemoglobin [Mass/volume] in Blood 10.2 g/dL 11.5-15.5 L [facility] Hematocrit [Volume Fraction] of Blood by Automated count 30.3 % 3 6-45 L [facility] Erythrocyte mean corpuscular volume [Entitic volume] by Auto mated count 96.3 fL 80-96 H [facility] Erythrocyte mean corpuscular hemoglobin [Entitic mass] by Automated count 32.6 pg 27-33 [facility] Erythrocyte mean corpuscular hemoglobin concentration [Mass/volume] by Automated count 33.8 g/dL 32.0-36.0 [facility] Erythrocyte distribution width [Ratio] by Automated count 19.9 % 11.5-14.5 H [facility] Platelets [#/volume] in Blood by Automated count 136 10*3/uL 150-400 L [facility] Differential cell count method - Blood [facility] Neutrophils/100 leukocytes in Blood by Automated count 46 % [facility] Lymphocytes/100 leukocytes in Blood by Automated count 41 % [facility] Monocytes/100 leukocytes in Blood by Automated count 12 % [facility] Eosinophils/100 leukocytes in Blood by Automated count 1 % [facility] Basophils/100 leukocytes in Blood by Automated count 0 % [facility] Neutrophils [#/volume] in Blood by Automated count 1.43 10*3/uL 1.8-7 .0 L [facility] Lymphocytes [#/volume] in Blood by Automated count 1.27 10*3/uL 1.2-4 .0 [facility] Monocytes [#/volume] in Blood by Automated count 0.37 10*3/uL 0-0.8 [facility] Eosinophils [#/volume] in Blood by Automated count 0.04 10*3/uL 0-0.5 [facility] Basophils [#/volume] in Blood by Automated count 0.01 10*3/uL 0-0.2 [facility] Nucleated erythrocytes/100 leukocytes [Ratio] in Blood by Automated count 0 /100{WBCs} 0-0 [facility] ID Date Data Source [id number] 01/22/2021 11:41:25 AM T [facility] Name Value Range Interpretation Code Description Data Deepa rce(s) Supporting Document(s) Leukocytes [#/volume] in Blood by Automated count 3.1 10*3/uL 4-10 L [facility] Erythrocytes [#/volume] in Blood by Automated count 2.81 10*6/uL 4.1- 5.3 L [facility] Hemoglobin [Mass/volume] in Blood 9.3 g/dL 11.5-15.5 L [facility] Hematocrit [Volume Fraction] of Blood by Automated count 26.7 % 3 6-45 L [facility] Erythrocyte mean corpuscular volume [Entitic volume] by Auto mated count 95.1 fL 80-96 [facility] Erythrocyte mean corpuscular hemoglobin [Entitic mass] by Automated count 33.1 pg 27-33 H [facility] Erythrocyte mean corpuscular hemoglobin concentration [Mass/volume] by Automated count 34.8 g/dL 32.0-36.0 [facility] Erythrocyte distribution width [Ratio] by Automated count 20.2 % 11.5-14.5 H [facility] Platelets [#/volume] in Blood by Automated count 107 10*3/uL 150-400 L [facility] Differential cell count method - Blood [facility] Neutrophils/100 leukocytes in Blood by Automated count 36 % [facility] Lymphocytes/100 leukocytes in Blood by Automated count 47 % [facility] Monocytes/100 leukocytes in Blood by Automated count 16 % [facility] Eosinophils/100 leukocytes in Blood by Automated count 1 % [facility] Basophils/100 leukocytes in Blood by Automated count 0 % [facility] Neutrophils [#/volume] in Blood by Automated count 1.10 10*3/uL 1.8-7 .0 L [facility] Lymphocytes [#/volume] in Blood by Automated count 1.46 10*3/uL 1.2-4 .0 [facility] Monocytes [#/volume] in Blood by Automated count 0.48 10*3/uL 0-0.8 [facility] Eosinophils [#/volume] in Blood by Automated count 0.03 10*3/uL 0-0.5 [facility] Basophils [#/volume] in Blood by Automated count 0.01 10*3/uL 0-0.2 [facility] Nucleated erythrocytes/100 leukocytes [Ratio] in Blood by Automated count 0 /100{WBCs} 0-0 [facility] ID Date Data Source [id number] 01/15/2021 09:17:54 AM T [facility] Name Value Range Interpretation Code Description Data Deepa rce(s) Supporting Document(s) Leukocytes [#/volume] in Blood by Automated count 2.6 10*3/uL 4-10 L [facility] Erythrocytes [#/volume] in Blood by Automated count 2.56 10*6/uL 4.1- 5.3 L [facility] Hemoglobin [Mass/volume] in Blood 8.3 g/dL 11.5-15.5 L [facility] Hematocrit [Volume Fraction] of Blood by Automated count 24.1 % 3 6-45 L [facility] Erythrocyte mean corpuscular volume [Entitic volume] by Auto mated count 94.0 fL 80-96 [facility] Erythrocyte mean corpuscular hemoglobin [Entitic mass] by Automated count 32.3 pg 27-33 [facility] Erythrocyte mean corpuscular hemoglobin concentration [Mass/volume] by Automated count 34.3 g/dL 32.0-36.0 [facility] al Erythrocyte distribution width [Ratio] by Automated count 16.3 % 11.5-14.5 H [facility] Platelets [#/volume] in Blood by Automated count 26 10*3/uL 150-400 LL [facility] No significant change since last result called Differential cell count method - Blood [facility] Neutrophils/100 leukocytes in Blood by Automated count 40 % [facility] Lymphocytes/100 leukocytes in Blood by Automated count 48 % [facility] Monocytes/100 leukocytes in Blood by Automated count 12 % [facility] Eosinophils/100 leukocytes in Blood by Automated count 0 % [facility] Basophils/100 leukocytes in Blood by Automated count 0 % [facility] Neutrophils [#/volume] in Blood by Automated count 1.02 10*3/uL 1.8-7 .0 L [facility] Lymphocytes [#/volume] in Blood by Automated count 1.24 10*3/uL 1.2-4 .0 [facility] Monocytes [#/volume] in Blood by Automated count 0.31 10*3/uL 0-0.8 [facility] Eosinophils [#/volume] in Blood by Automated count 0.01 10*3/uL 0-0.5 [facility] Basophils [#/volume] in Blood by Automated count 0.00 10*3/uL 0-0.2 [facility] Nucleated erythrocytes/100 leukocytes [Ratio] in Blood by Automated count 0 /100{WBCs} 0-0 [facility] ID Date Data Source [id number] 01/15/2021 09:54:08 AM EDT [facility] Name Value Range Interpretation Code Description Data Deepa rce(s) Supporting Document(s) Albumin [Mass/volume] in Serum or Plasma by Bromocresol green (BCG) dye binding method 4.0 g/dL 3.5-5.2 [facility] al Bilirubin.total [Mass/volume] in Serum or Plasma 0.4 mg/dL <1.2 [facility] Calcium [Mass/volume] in Serum or Plasma 10.5 mg/dL 8.8-10.2 H [facility] Chloride [Moles/volume] in Serum or Plasma 102 mmol/L 98-107 [facility] Creatinine [Mass/volume] in Serum or Plasma 0.59 mg/dL 0.50-0.90 [facility] Glucose [Mass/volume] in Serum or Plasma 95 mg/dL 70-140 [facility] Alkaline phosphatase [Enzymatic activity/volume] in Serum or Plasma 73 U/L 35-104 [facility] Potassium [Moles/volume] in Serum or Plasma 3.4 mmol/L 3.4-5.1 [facility] Protein [Mass/volume] in Serum or Plasma 6.4 g/dL 6.4-8.3 [facility] Sodium [Moles/volume] in Serum or Plasma 137 mmol/L 136-145 [facility] Aspartate aminotransferase [Enzymatic activity/volume] in Serum or Plasma 14 U/L <32 [facility] Urea nitrogen [Mass/volume] in Serum or Plasma 16 mg/dL 8-23 [facility] Osmolality of Serum or Plasma by calculation 284 mosm/kg 275-300 [facility] Creatinine/Urea nitrogen [Mass Ratio] in Serum or Plasma 27 [facility] Bicarbonate [Moles/volume] in Serum 26 mmol/L 22-29 [facility] Alanine aminotransferase [Enzymatic activity/volume] in Seru m or Plasma 14 U/L <33 [facility] Anion gap 3 in Serum or Plasma 8 mmol/L 8-15 [facility] Glomerular filtration rate/1.73 sq M pre dicted among non-blacks [Volume Rate/Area] in Serum or Plasma by Creatinine-based formula (MDRD) >6 0 [facility] Glomerular filtration rate/1.73 sq M pre dicted among blacks [Volume Rate/Area] in Serum or Plasma by Creatinine-based formula (MDRD) >60 [facility] ID Date Data Source [id number] 01/15/2021 03:49:02 PM EDT [facility] Name Value Range Interpretation Code Description Data Deepa rce(s) Supporting Document(s) Cancer Ag 125 [Units/volume] in Serum or Plasma 20 U/mL <38 [facility] The CA 125 assay should not be used as a screening test to detect Cancer. Its use as an aid in the management of Ovarian Cancer has been reported. CA125 values obtained using different methodologies cannot be used interchangeably. This method is manufactured by [employer] and is an electrochemiluminesence immunoassay. ID Date Data Source [id number] 01/14/2021 12:07:58 PM EDT [facility] Name Value Range Interpretation Code Description Data Deepa rce(s) Supporting Document(s) ED Provider Note [facility] [id number] lbm [file] [id number] ID Date Data Source [id number] 01/13/2021 10:13:09 AM EDT [facility] Name Value Range Interpretation Code Description Data Deepa e(s) Supporting Document(s) Leukocytes [#/volume] in Blood by Automated count 3.1 10*3/uL 4-10 L [facility] Erythrocytes [#/volume] in Blood by Automated count 2.49 10*6/uL 4.1- 5.3 L [facility] Hemoglobin [Mass/volume] in Blood 8.0 g/dL 11.5-15.5 L [facility] Hematocrit [Volume Fraction] of Blood by Automated count 23.3 % 3 6-45 L [facility] Erythrocyte mean corpuscular volume [Entitic volume] by Auto mated count 93.9 fL 80-96 [facility] Erythrocyte mean corpuscular hemoglobin [Entitic mass] by Automated count 32.3 pg 27-33 [facility] Erythrocyte mean corpuscular hemoglobin concentration [Mass/volume] by Automated count 34.5 g/dL 32.0-36.0 [facility] Erythrocyte distribution width [Ratio] by Automated count 15.9 % 11.5-14.5 H [facility] Platelets [#/volume] in Blood by Automated count 19 10*3/uL 150-400 [facility] Called to and read back by SAMIRA MERCADO RN AT 1012 BY 2045 Differential cell count method - Blood [facility] Neutrophils/100 leukocytes in Blood by Automated count 53 % [facility] Lymphocytes/100 leukocytes in Blood by Automated count 36 % [facility] Monocytes/100 leukocytes in Blood by Automated count 11 % [facility] Eosinophils/100 leukocytes in Blood by Automated count 0 % [facility] Basophils/100 leukocytes in Blood by Automated count 0 % [facility] Neutrophils [#/volume] in Blood by Automated count 1.66 10*3/uL 1.8-7 .0 L [facility] Lymphocytes [#/volume] in Blood by Automated count 1.13 10*3/uL 1.2-4 .0 L [facility] Monocytes [#/volume] in Blood by Automated count 0.34 10*3/uL 0-0.8 [facility] Eosinophils [#/volume] in Blood by Automated count 0.01 10*3/uL 0-0.5 [facility] Basophils [#/volume] in Blood by Automated count 0.00 10*3/uL 0-0.2 [facility] Nucleated erythrocytes/100 leukocytes [Ratio] in Blood by Automated count 0 /100{WBCs} 0-0 [facility] ID Date Data Source [id number] 01/13/2021 10:50:24 AM [facility] Name Value Range Interpretation Code Description Data Deepa rce(s) Supporting Document(s) ABO and Rh group [Type] in Blood [facility] Blood group antibody screen [Presence] in Serum or Plasma [facility] Blood bank comment [facility] ID Date Data Source [id number] 01/12/2021 04:10:06 AM [facility] Performed at [facility], [place], MITCHELL KAUFMAN IN ADULT ED AT [id number] Name Value Range Interpretation Code Description Data Deepa rce(s) Supporting Document(s) ID Date Data Source [id number] 01/10/2021 11:54:27 AM EDT [facility] Name Value Range Interpretation Code Description Data Deepa rce(s) Supporting Document(s) Leukocytes [#/volume] in Blood by Automated count 3.8 10*3/uL 4-10 L [facility] Erythrocytes [#/volume] in Blood by Automated count 2.50 10*6/uL 4.1- 5.3 L [facility] Hemoglobin [Mass/volume] in Blood 8.2 g/dL 11.5-15.5 L [facility] Hematocrit [Volume Fraction] of Blood by Automated count 23.0 % 3 6-45 L [facility] Erythrocyte mean corpuscular volume [Entitic volume] by Auto mated count 92.2 fL 80-96 [facility] Erythrocyte mean corpuscular hemoglobin [Entitic mass] by Automated count 32.9 pg 27-33 [facility] Erythrocyte mean corpuscular hemoglobin concentration [Mass/volume] by Automated count 35.7 g/dL 32.0-36.0 [facility] Erythrocyte distribution width [Ratio] by Automated count 15.8 % 11.5-14.5 H [facility] Platelets [#/volume] in Blood by Automated count 12 10*3/uL 150-400 [facility] Called to and read back by Aliyah Goff RN in EMR at 1153 by 1472 Differential cell count method - Blood [facility] Neutrophils/100 leukocytes in Blood by Automated count 55 % [facility] Lymphocytes/100 leukocytes in Blood by Automated count 37 % [facility] Monocytes/100 leukocytes in Blood by Automated count 8 % [facility] Eosinophils/100 leukocytes in Blood by Automated count 0 % [facility] Basophils/100 leukocytes in Blood by Automated count 0 % [facility] Neutrophils [#/volume] in Blood by Automated count 2.08 10*3/uL 1.8-7 .0 [facility] Lymphocytes [#/volume] in Blood by Automated count 1.41 10*3/uL 1.2-4 .0 [facility] Monocytes [#/volume] in Blood by Automated count 0.30 10*3/uL 0-0.8 [facility] Eosinophils [#/volume] in Blood by Automated count 0.01 10*3/uL 0-0.5 [facility] Basophils [#/volume] in Blood by Automated count 0.01 10*3/uL 0-0.2 [facility] Nucleated erythrocytes/100 leukocytes [Ratio] in Blood by Automated count 0 /100{WBCs} 0-0 [facility] ID Date Data Source [id number] 01/10/2021 12:03:51 PM EDT [facility] Name Value Range Interpretation Code Description Data Deeap rce(s) Supporting Document(s) Bicarbonate [Moles/volume] in Serum 26 mmol/L 22-29 [facility] Chloride [Moles/volume] in Serum or Plasma 102 mmol/L 98-107 [facility] Creatinine [Mass/volume] in Serum or Plasma 0.52 mg/dL 0.50-0.90 [facility] Glucose [Mass/volume] in Serum or Plasma 98 mg/dL 70-140 [facility] Potassium [Moles/volume] in Serum or Plasma 3.7 mmol/L 3.4-5.1 [facility] Sodium [Moles/volume] in Serum or Plasma 137 mmol/L 136-145 [facility] Urea nitrogen [Mass/volume] in Serum or Plasma 14 mg/dL 8-23 [facility] Anion gap 3 in Serum or Plasma 9 mmol/L 8-15 [facility] Osmolality of Serum or Plasma by calculation 284 mosm/kg 275-300 [facility] Creatinine/Urea nitrogen [Mass Ratio] in Serum or Plasma 28 [facility] Calcium [Mass/volume] in Serum or Plasma 10.3 mg/dL 8.8-10.2 H [facility] Glomerular filtration rate/1.73 sq M pre dicted among non-blacks [Volume Rate/Area] in Serum or Plasma by Creatinine-based formula (MDRD) >6 0 [facility] Glomerular filtration rate/1.73 sq M pre dicted among blacks [Volume Rate/Area] in Serum or Plasma by Creatinine-based formula (MDRD) >60 [facility] ID Date Data Source [id number] 01/10/2021 07:03:27 AM [facility] Performed at [facility], [place] [facility] DERX ADULT CC AT 1317 BY 1754ONLY 1 UNIT IS TO BE ISSUED PER DR AMANDA ALMONTE 1322 Name Value Range Interpretation Code Description Data Deepa rce(s) Supporting Document(s) ID Date Data Source [id number] 01/08/2021 12:17:28 PM EDT [facility] Name Value Range Interpretation Code Description Data Deepa rce(s) Supporting Document(s) ABO and Rh group [Type] in Blood [facility] Blood group antibody screen [Presence] in Serum or Plasma [facility] Blood bank comment [facility] ID Date Data Source [id number] 01/08/2021 12:05:03 PM EDT [facility] Name Value Range Interpretation Code Description Data Deepa rce(s) Supporting Document(s) ABO and Rh group [Type] in Blood [facility] Blood bank comment [facility] ID Date Data Source [id number] 01/08/2021 10:57:20 AM EDT [facility] Name Value Range Interpretation Code Description Data Deepa rce(s) Supporting Document(s) Leukocytes [#/volume] in Blood by Automated count 5.3 10*3/uL 4-10 [facility] Erythrocytes [#/volume] in Blood by Automated count 2.67 10*6/uL 4.1- 5.3 L [facility] Hemoglobin [Mass/volume] in Blood 8.6 g/dL 11.5-15.5 L [facility] Hematocrit [Volume Fraction] of Blood by Automated count 24.6 % 3 6-45 L [facility] Erythrocyte mean corpuscular volume [Entitic volume] by Auto mated count 92.4 fL 80-96 [facility] Erythrocyte mean corpuscular hemoglobin [Entitic mass] by Automated count 32.2 pg 27-33 [facility] Erythrocyte mean corpuscular hemoglobin concentration [Mass/volume] by Automated count 34.8 g/dL 32.0-36.0 [facility] Erythrocyte distribution width [Ratio] by Automated count 15.7 % 11.5-14.5 H [facility] Platelets [#/volume] in Blood by Automated count 7 10*3/uL 150-400 [facility] Called to and read back by Nano Hunter at 1045 by 6605 Differential cell count method - Blood [facility] Neutrophils/100 leukocytes in Blood by Automated count 65 % [facility] Lymphocytes/100 leukocytes in Blood by Automated count 28 % [facility] Monocytes/100 leukocytes in Blood by Automated count 7 % [facility] Eosinophils/100 leukocytes in Blood by Automated count 0 % [facility] Basophils/100 leukocytes in Blood by Automated count 0 % [facility] Neutrophils [#/volume] in Blood by Automated count 3.43 10*3/uL 1.8-7 .0 [facility] Lymphocytes [#/volume] in Blood by Automated count 1.46 10*3/uL 1.2-4 .0 [facility] Monocytes [#/volume] in Blood by Automated count 0.38 10*3/uL 0-0.8 [facility] Eosinophils [#/volume] in Blood by Automated count 0.02 10*3/uL 0-0.5 [facility] Basophils [#/volume] in Blood by Automated count 0.01 10*3/uL 0-0.2 [facility] Nucleated erythrocytes/100 leukocytes [Ratio] in Blood by Automated count 0 /100{WBCs} 0-0 [facility] ID Date Data Source [id number] 01/04/2021 02:46:21 PM EDT [facility] Name Value Range Interpretation Code Description Data Deepa rce(s) Supporting Document(s) Progress Note [facility] [id number] lbm [file] [id number]/inpatient auditor [file] [id number]= ID Date Data Source [id number] 01/04/2021 02:46:16 PM EDT [facility] Name Value Range Interpretation Code Description Data Deepa rce(s) Supporting Document(s) Progress Note [facility] [id number] lbm [file] [id number]= ID Date Data Source [id number] 01/01/2021 11:03:38 AM EDT [facility] Name Value Range Interpretation Code Description Data Deepa rce(s) Supporting Document(s) Leukocytes [#/volume] in Blood by Automated count 1.8 10*3/uL 4-10 [facility] Called to and read back by CYNDIE CENTENO RN. AT [facility] AT 1040 JRM Erythrocytes [#/volume] in Blood by Automated count 3.44 10*6/uL 4.1- 5.3 [facility] Hemoglobin [Mass/volume] in Blood 10.8 g/dL 11.5-15.5 [facility] Hematocrit [Volume Fraction] of Blood by Automated count 31.9 % 3 6-45 L [facility] Erythrocyte mean corpuscular volume [Entitic volume] by Auto mated count 92.6 fL 80-96 [facility] Erythrocyte mean corpuscular hemoglobin [Entitic mass] by Automated count 31.3 pg 27-33 [facility] Erythrocyte mean corpuscular hemoglobin concentration [Mass/volume] by Automated count 33.8 g/dL 32.0-36.0 [facility] Erythrocyte distribution width [Ratio] by Automated count 16.3 % 11.5-14.5 H [facility] Platelets [#/volume] in Blood by Automated count 40 10*3/uL 150-400 L [facility] Differential cell count method - Blood [facility] Neutrophils/100 leukocytes in Blood by Automated count 27 % [facility] Lymphocytes/100 leukocytes in Blood by Automated count 60 % [facility] Monocytes/100 leukocytes in Blood by Automated count 12 % [facility] Basophils/100 leukocytes in Blood by Automated count 1 % [facility] Neutrophils [#/volume] in Blood by Automated count 0.49 10*3/uL 1.8-7 .0 L [facility] Lymphocytes [#/volume] in Blood by Automated count 1.08 10*3/uL 1.2-4 .0 L [facility] Monocytes [#/volume] in Blood by Automated count 0.22 10*3/uL 0-0.8 [facility] Basophils [#/volume] in Blood by Automated count 0.02 10*3/uL 0-0.2 [facility] ID Date Data Source [id number] 12/27/2020 07:19:49 PM EDT [facility] Name Value Range Interpretation Code Description Data Deeap rce(s) Supporting Document(s) Progress Note [facility] [id number]/[id number]Q2JArXRsHrGgDdWFYa lbm FkNzyQBzEoZJPxUewZKuEyGFbsWaeihPNdAI4IiOG9YAFdS57uDNKrAHRcV8EwRDWrVmz+Jh2ZIOHqkX RkSV5MHdsI6HjuhbbJEG+VkQ3oPgAfTrcJ8C7nIKtajP2W56E1RkQJp5bwCMkA9ZWy+gsKN7o240Ly2Y zwGaPnFkk8Ds19tx9SZD/1WrE302Siru+nioTVGO8Q 3bDGwHtvvJui8a/HHghrxOQmkrKKW6s+euCgK/gITMIfA06hpWTaMg8RG4QfxQ8v6oXmUxmKmwyZw+BARAK BW2mKkxW23SsrgxeY27S56of7WRg1pEuLv+TS7RyLW9OEqDA7tio8FZzPrYWLGCpp2aQow4SZA+Gtq9c 3iYNDq7nVFWOZgBk77JoRtlv0Zl8BHCFSrCbKWbCnT j9v6NYCyt5xSIbdLQ2QmiOw4g4lQpXauOf9x9qxnIrt2ZbyvSiEYPcSSXn+UhyN/Uq2VlUECHOqEWl6K SrFTSU/YsTycotECMejKF1Vr5Si9yDsVlfGC/Jeannette+y9sUB2LoA3ZY1PS0D3tbbHovjScudLFb+VU3ev3r [file] AgICAgICAgICAgICAgICAgICAgICAgICAgICAgICAg ICAgICAgICAgICAgICAgICAgICAgICAgICAgDQogICAgICAgICAgICAgICAgICAgICAgICAgICAgICAg ICAgICAgICAgICAgICAgICAgICAgICAgICAgICAgICAgICAgICAgICAgICAgICAgICAgICAgICAgICAg ICAgICAgICAgDQogICAgICAgICAgICAgICAgICAgIC AgICAgICAgICAgICAgICAgICAgICAgICAgICAgICAgICAgICAgICAgICAgICAgICAgICAgICAgICAgIC AgICAgICAgICAgICAgICAgICAgDQogICAgICAgICAgICAgICAgICAgICAgICAgICAgICAgICAgICAgIC AgICAgICAgICAgICAgICAgICAgICAgICAgICAgICAg ICAgICAgICAgICAgICAgICAgICAgICAgICAgICAgDQogICAgICAgICAgICAgICAgICAgICAgICAgICAg ICAgICAgICAgICAgICAgICAgICAgICAgICAgICAgICAgICAgICAgICAgICAgICAgICAgICAgICAgICAg ICAgICAgICAgICAgDQogICAgICAgICAgICAgICAgIC AgICAgICAgICAgICAgICAgICAgICAgICAgICAgICAgICAgICAgICAgICAgICAgICAgICAgICAgICAgIC AgICAgICAgICAgICAgICAgICAgICAgDQogICAgICAgICAgICAgICAgICAgICAgICAgICAgICAgICAgIC AgICAgICAgICAgICAgICAgICAgICAgICAgICAgICAg ICAgICAgICAgICAgICAgICAgICAgICAgICAgICAgICAgDQogICAgICAgICAgICAgICAgICAgICAgICAg ICAgICAgICAgICAgICAgICAgICAgICAgICAgICAgICAgICAgICAgICAgICAgICAgICAgICAgICAgICAg ICAgICAgICAgICAgICAgDQogICAgICAgICAgICAgIC AgICAgICAgICAgICAgICAgICAgICAgICAgICAgICAgICAgICAgICAgICAgICAgICAgICAgICAgICAgIC AgICAgICAgICAgICAgICAgICAgICAgICAgDQogICAgICAgICAgICAgICAgICAgICAgICAgICAgICAgIC AgICAgICAgICAgICAgICAgICAgICAgICAgICAgICAg QXUeVKHeIMGfSCYbWSUoQBSyVRQjQHGwBEUcVGSvNFEnMRHsEIq2X7mcQIHwPPBwTC8jASk1Td1+DQoN VcYiWMX7hzJgzF0LSL4xj5SnNNdsJKVim2BnOVu0CI7AAQCpZQnjVE0SPSnguz9BXTMoYXZvzZGWn3kk BjCuWJC3CKKiDstlUS1OUTQxS8expnXeAHWyUOPJIS 1GGwZwW5OvgB83PKOFKv1+YRzgmdFfHhxIKmL0FPFjs1HmFMj0KY9NSVQsFbprd7AwUaDrUQVDVFblWH 3DQCQ4EKSsFKQpBh9FQMZiZ288opTkGE8TXj5GDsIoZV2gll4EBsBdLAKiUjaFZpz4VFleDM5DkTOdQG qOfo7ypuFzmfWKl6EdbnBoiVANgJF2uT2vUpYUo2Uo iptgXn9vUHJoIO2rJS2qMGHlTMYcBeT3SZNTAI1NEKYmBPCtoJQbUKLdDGLOIO1XVOszYXH8RZHjshAg gXVyZXdvJY8BBUGeuqQbPJdsGVTXRDl+Nk5ZVI3xw4ZoVCcuXKXoSX4vci1RFHqEKrSpR5X1zDCqL6F6 XJnoKk7MYYZeJROwSTozNQZZVZomGO9CWG8ytoC6FH 9MvEFwCLPzYFZleFDoZSl4M42ijXNbXXrtBB7KARD+Justina+Ep6VBLRiPPFgXVMfUsOjFWZDBdKoI8PcH7 EPp5OyL4BrTI45eXioiePqYAxeDC0BPD9kZKPpSBSOYI1LwRQcwV2khaFoNPFlUXVKKjHpO71tcYKcFU HeFUE8VBPnVm5EWEOrV1JcfcJyaWtwunZkHMXqUPWK MR2CLIpfhiErfJQpqJmhMZ03vAubYD9NFz8SVtIuRE7biz9RxTJgUd9QMLSeMv9WQUQcTZTgTXYnDZW0 NQCuDyVrQLdcKCQsPFMfNWD7QQPuGXZtFZ2YEnXzWMNfMXh6THYoJHDqJSUyht5UJUPnYJNsOXJ4PDGp BPFiBJPtTMwbLWQpBGUtHCI8ULMpIHUpCZ7BYaWoSH UeHMWjNupuDIGmJYOugz7HRLQqALMbUdE5ANWzOVQeZIYrYBnpHATiWRZmZLOzGIQaQJHwNV2AKeHsBL AcDRR5OxKzATJrEOKddu2NAYXhRFQxFwikJpUbUMPkMANtCYbeYPFmHWV6Gwz9FZKsZSRdNT9RKbJqQS HeDHL8IgSnNNIyYNOcmy1VHFSdPZXcPTU1EkWfFNHl JROpGGjcOXAkQXZ1TJO4ZPAkTNEcNI8FRmIkHEIsJDL7OyIcPYScCBPfgw9SRZNaXICdGdM7AiXdOWNm IVDjDEnmZJVyYQH5AbnoUTLfNPOnXH2VBgIfXIRkHKq4IwcfFWOaWIOdtt2BNMIbZTEsXyfaUJAjHNGg FFSkZYijVNZlAVU8UkY5IUMzEGTkPW8UMbVuJPKePH joVzpqMLDdTXScfg2CVMCaEUBuEBX0AjVoGBKyMCLuJOq3aaKzeWOzQYf4LU6BG5UissMbLhAPOj5Ow5 08BPPdWSTiVz1KE4vyMo9zDFWrUXYKTx6AVZb3OOOmJNK5UmSvRkz4BIDmNcM0BKW8SCNjMZV7EjPhWX E+AEqqJvXrQwf0UdVzEPknEPJ5MyckKLRhQ0CdKMgi JMU5SZ2vSFGIIl4+MGdbzWMpcTzdKKVVPjC6XjIvCJicJRKHYp9R ID Date Data Source [id number] 12/27/2020 07:19:44 PM EDT [facility] Name Value Range Interpretation Code Description Data Deepa rce(s) Supporting Document(s) Progress Note 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 [file] AgICAgICAgICAgICAgICAgICAgICAgICAgICAgICAg ICAgICAgICAgICANCiAgICAgICAgICAgICAgICAgICAgICAgICAgICAgICAgICAgICAgICAgICAgICAg ICAgICAgICAgICAgICAgICAgICAgICAgICAgICAgICAgICAgICAgICAgICAgICAgICAgICANCiAgICAg ICAgICAgICAgICAgICAgICAgICAgICAgICAgICAgIC AgICAgICAgICAgICAgICAgICAgICAgICAgICAgICAgICAgICAgICAgICAgICAgICAgICAgICAgICAgIC AgICANCiAgICAgICAgICAgICAgICAgICAgICAgICAgICAgICAgICAgICAgICAgICAgICAgICAgICAgIC AgICAgICAgICAgICAgICAgICAgICAgICAgICAgICAg ICAgICAgICAgICAgICANCiAgICAgICAgICAgICAgICAgICAgICAgICAgICAgICAgICAgICAgICAgICAg ICAgICAgICAgICAgICAgICAgICAgICAgICAgICAgICAgICAgICAgICAgICAgICAgICAgICAgICANCiAg ICAgICAgICAgICAgICAgICAgICAgICAgICAgICAgIC AgICAgICAgICAgICAgICAgICAgICAgICAgICAgICAgICAgICAgICAgICAgICAgICAgICAgICAgICAgIC AgICAgICANCiAgICAgICAgICAgICAgICAgICAgICAgICAgICAgICAgICAgICAgICAgICAgICAgICAgIC AgICAgICAgICAgICAgICAgICAgICAgICAgICAgICAg ICAgICAgICAgICAgICAgICANCiAgICAgICAgICAgICAgICAgICAgICAgICAgICAgICAgICAgICAgICAg ICAgICAgICAgICAgICAgICAgICAgICAgICAgICAgICAgICAgICAgICAgICAgICAgICAgICAgICAgICAN CiAgICAgICAgICAgICAgICAgICAgICAgICAgICAgIC AgICAgICAgICAgICAgICAgICAgICAgICAgICAgICAgICAgICAgICAgICAgICAgICAgICAgICAgICAgIC AgICAgICAgICANCiAgICAgICAgICAgICAgICAgICAgICAgICAgICAgICAgICAgICAgICAgICAgICAgIC AgICAgICAgICAgICAgICAgICAgICAgICAgICAgICAg ICAgICAgICAgICAgICAgICAgICANCjw/mQKuH6dfiKLtqgU1T2wlHk1SNp9UED6sw2UlLXEqAGhbeuEv LjqXVvPdXEUiDvwHLyo9ETnqGM4PmWUwZ5KeS7VtETooBY5HHWHuRPFneVPpURHkPTJgTnQ4UFUaDVct QZ6ZcMBrXQbnLAAlDDWpKuJiJURjMIYpSVIkBFVaKQ CDMM5KVhYtH6BgpA04FSSWFu9+XCtembSuVedYIvI4LGAyc4RiMRk9DN4ICBIuAvbhj6SeUlHaIBXMOK fxGO6EZNE2RXY0YFTiMo3XPFMuX514jnQoVF9TEj0RBkSiGQ8wur7EGmGbQZJrIwaLNpa0NRfcTN1UdN CsGAzMsp5yosNhvdDVe1IewkMmsLRAgZpoPQYPVMSb GLShWO0BYMR4CXhyXwEuXmIxBTNjFBbxIXWPKYyGNfJjL2Soy8PiCtC7AKQyStGiYAqmWJEbIkW4EC07 fAopNL6HXRThSYKmKL89INE8GOFkLz4TKu0DKgIfPH6ycq9IRyqlRVRqOhiWQhk6OGwfQS6ReROhT1Eb cUZjn9hAPqAnA1ODFZWbDLRyPh0KEGJfGzLdERYdTS hoRT5zUSQeAQJOeCrdvhQ3WW9NXQ0jwbPbMG8NMvOrBt9xLh0HPdGuR6YzI8HhUQGzAPQNEHfgIY1OFI fwAJ5qSI6Rh9WSpEDyjJ2gpb1XIJSaGUXfAxzdrx6AHkzsC4O1pTmyRQGyXgKwGWLMKZloYT1HBQIlXK Q0FMDhIAUiPQSGEmMhZ80uLR5NA4Kju03tIyL7RXFq IoBnFPuySC60gXajzmOsbVUncPewEN2NQl9+DQplbmRvYmoNCnhyZWYNCjAgMjgNCjAwMDAwMDAwMDAg UoZ6CrWsDd1GUJPzIPIxADLxLaPeORUoJHPbRTmfJIPzVZD5DeScRFIwQRWkAU1OStBqFDPvYxK2YcCo EWMfRZNpzc3VWWOyZORjASG8PeMnQLNhLMTaPOfjUY RjYRA6BlPbSMWkFRPjMB0EQdQzTHIxGML6QbqbZVCdPEOjta1ZPPPxXXSyRFZqEyRcVNAlSGLdBQqlSI HyJQH0QyY4YDExDEQuHX2IPsZrRTFmTPZwNlJnNXUwGGFcbg7ZQEBsEDWfBANoFXOnFFUmKUGkVAjgEM HvPAL9VPS3AJEcNDDbGE1SUxBxODGbRPCwWbNqXICt UGFoxs9DLVFsPJDvRJIhEMRqHKNwLMZwLYkfFZXqTOE4PBNaMVQuLNRsHG5PUgMhXODdSTP7YSUnQZJp LTHvvq5ABMJzNGJxRgJ1EcHqDEMaNFRjFDgwXVHgEUJ2Tee3DMFyHJZyHZ8QMhLvRAWgFDC2CgThEIJn VJKyxh7BBSSyZHFmTPImGMAdOWYbNPElPLnwWGNkPG C7VlW2TTTsVIMtMA9ULnXaUTRhCss1VBLlCIEaCPWywc8LAUHqSRFaZSA6GlVpOFBrKJWuMSkpWYIkLD Z6MqI6WOYqKVMsMX5UOcFhGMPyWyn7WyTnTFRfIFIeic9IMCLhVVFjDOB8ApOtECTdZYLcJUtbKOGbQC PnLIC3ZADmTRPjOG7SCoBgINAjOyWmICCzGTHtXUYi rf0XxWPjyZivfn8KNQkVGa8DySitSGW4SPpxQk6xlMPdSdHfXBZKTd8AdwTaWJDbIGKOGKfiBHHwERCq VJY5AbTrRSCaB0WpS5CyYWO1YTD9WVVtFUEgRAf5TnO6BLGbMiYnQDM6GPQvGRHaHFYuOBvfOgueGDMc EMO2JQx+FU7pZGw+Gr7Rj2XrswJ1jzOvITszVPL8PR1PNMNNE8MTVo== ID Date Data Source [id number] 12/27/2020 07:07:48 PM EDT [facility] Name Value Range Interpretation Code Description Data Deepa rce(s) Supporting Document(s) Progress Note [facility] TWKETq6rUhCUGoJf04/HVDvfJUZqz5YoLCesEIz4LOstWUPqH8LcYUO9xT8oWZK1APeEVyQuRyWaHFCc lbm [file] YrD2MkvMEjAnJN6JKSc= ID Date Data Source [id number] 12/27/2020 07:07:43 PM EDT [facility] Name Value Range Interpretation Code Description Data Deepa rce(s) Supporting Document(s) Progress Note [facility] PSCJUb3hEiBDWpCh69/ZRYdcXGTzo5IoPOqcABp8BQzeBZTgD4KgYTF1yJ3mETU8SDjAUmKtIsCqGIOo lbm [file] AgICAgICAgICAgICAgICAgICAgICAgICAgICAgICAg ICAgICAgICAgICAgICAgDQogICAgICAgICAgICAgICAgICAgICAgICAgICAgICAgICAgICAgICAgICAg ICAgICAgICAgICAgICAgICAgICAgICAgICAgICAgICAgICAgICAgICAgICAgICAgICAgICAgICAgDQog ICAgICAgICAgICAgICAgICAgICAgICAgICAgICAgIC AgICAgICAgICAgICAgICAgICAgICAgICAgICAgICAgICAgICAgICAgICAgICAgICAgICAgICAgICAgIC AgICAgICAgDQogICAgICAgICAgICAgICAgICAgICAgICAgICAgICAgICAgICAgICAgICAgICAgICAgIC AgICAgICAgICAgICAgICAgICAgICAgICAgICAgICAg ICAgICAgICAgICAgICAgICAgDQogICAgICAgICAgICAgICAgICAgICAgICAgICAgICAgICAgICAgICAg ICAgICAgICAgICAgICAgICAgICAgICAgICAgICAgICAgICAgICAgICAgICAgICAgICAgICAgICAgICAg DQogICAgICAgICAgICAgICAgICAgICAgICAgICAgIC AgICAgICAgICAgICAgICAgICAgICAgICAgICAgICAgICAgICAgICAgICAgICAgICAgICAgICAgICAgIC AgICAgICAgICAgDQogICAgICAgICAgICAgICAgICAgICAgICAgICAgICAgICAgICAgICAgICAgICAgIC AgICAgICAgICAgICAgICAgICAgICAgICAgICAgICAg ICAgICAgICAgICAgICAgICAgICAgDQogICAgICAgICAgICAgICAgICAgICAgICAgICAgICAgICAgICAg ICAgICAgICAgICAgICAgICAgICAgICAgICAgICAgICAgICAgICAgICAgICAgICAgICAgICAgICAgICAg ICAgDQogICAgICAgICAgICAgICAgICAgICAgICAgIC AgICAgICAgICAgICAgICAgICAgICAgICAgICAgICAgICAgICAgICAgICAgICAgICAgICAgICAgICAgIC AgICAgICAgICAgICAgDQogICAgICAgICAgICAgICAgICAgICAgICAgICAgICAgICAgICAgICAgICAgIC AgICAgICAgICAgICAgICAgICAgICAgICAgICAgICAg ACZqIMGvYVEgBTIyHYMbTZRgJWJuKIAvFMk4R7jiIANoGPAlAH5pCRn3Rx6+KKgEJqQmJBB1ctZumR6X IJ7qj9QzWVokSPUxq4TsIZx3FD8BBJZdNWqlYT1LNKzdhe0UFUKpJFTakZUXg7wuAaMaFEP7YEOtSgrw UM7EOFSdX2odekTrIVFoDHXRPXklJLLBAMycDHAWXB UePUHoFyDhBzDmTOVqFMDdGAJBWK9FJwIzW8EdwI24CRZCBu8+XDzfseKaQssXCfRpMLImr4VuMZi7QK 9PORInAfoli8UbAlDzAFINSJvsVQ4KZZE2QQWlZXFeIc5DNVUzO734nkCeRF0HXy7VGnOwQU7ydw3AOb MsJDFaKagAKjm3JLmwAU6SqVJbQTqGyl1cxjDxmpLU i6PbnwOtdWLOUFGqZCOHXWYmwsUfJYapOtEeTZFeGq5zEQ9pRKIyHJL6JqS2XDEFEQ4NSXGiVVDsoXAv HYJvMAEURG1ZWEdaSVR7OMQstnDfxITsXEnaIW8KBSZdgtQqHfDhARNMPXy+Ho3BCX7bh6IrUCwqOOVb DW0dpa1IKWgLUnXsJ2G9zOTiX1Z4GIwyTd5ICUSoDT YeHfUuVAWRGHiyIL2MQX1yilJ7GF8VkQIvANTeAXEdxPSjVSp6Q66whDSgNHljUJ7HONA+Justina+Pg0KIC ChIXYdUXBpBeMoCEWSQuYaV8FjL9GMu6CmD2QwTQ18tOmkjyZvZVvfOP3ZQQ3xJXEbMCPGKJ4KzMOllH 7ihfKpEuLqOYIGKdRgL74cjTXuOPIpJEWaLQHkDq5C PQVfB3FpcyOvoUdnbeTkCRGaEYDZGQ9KWPnbxtDzfLMjkQdcZL37eDazBL7CXe1RMiRzTE3zms1UpQNr Nt3QQBEkBK1YFJSfABLyYJGsQYZ8FTLkGwDbVHjlMBLvNRDxRDH2HWOhNUKlTV4NAeSzMRBdAfo8BgOh VVWhKYLslh1WDDPeAGJuRGL6IQQxDFExZIGhAEljLG XmZERwLUC1MCKoOMNuIX4UJqYzPKSfUVNvOKvfBNEmJMJwmq3NSXIyLWRqACO5RfJfOITePPLyPFmnLR UpMJI4AAA2FDMsYNIxNX3OZeEuXUIfOAvrQXHyPOLxIKGczu9NHODsVHBfKXokILMhSSSdDKNuIJnrHV PzEAJcIMJ2YCSrHGMbWG3WTuTnNNXdUUSaAlBlWOWm XOSchw0EEDCgICKsLFF7RHHyDCFtLWEmPSbdIACbQAX4QPl6ZEEtSYTxYI2SPkUvFZGuGLgbRHIoYMNg WVQeqn1BVAQiJWQfCJDnXyVmZZGsTCDrRLqvMXObSDDuOnLsGZHjFXTjQH0QFzStCSCpSzZhINGvUTMf OZAcrr2IIKImUZWlTnC5CPFsKMQzZIZfHAffRCWcLV RuXnqnFMPfUIKsAZ4KQiCyONNyMfR8XCPfBFPiROUsxm6RALHmNVGtZos5BxDjWKZhTIGaZRzlKFSaLU G4CJQvCUAoVTWqPM0FRzDiYHHfTiI9UwBiYPVtIXHrus1RNUXeHGXhOAb6SwGcRHLmMUHiAGveCXNwHL Q9CKc9OBBrKQQrOU9SHzPnOKYzScZaRMJoCJHpXFYg ob2JVNRzCJDeYgZ6DRCaQIKcQSVoTOntFWFsVTY7PfE6SKHfZLGuBN8PUqCwIYOeSrn1RuJmWFJnLCRb ik2GNDBnNULeRyohJRQmHMUiGSPqERmjTBPkWSG6OIL9YWXdHZHfCI7FBzDsEALeNyq8CAdkSWKuVLBn ga6QCXGzDGMdWQH5CVXrJNRuODGvWDgaYEImFLF4RU T6TENwHRIlAT8OYwWiRXqjSUPZSoy3AMidD6i0RTRiRQ3CP0Wfx4AqGyTaNRPYVNdjZK4ifxCpHRLyNj 1JN2qNHduxGvUlB8MwFEyeCBOtUPBhCIEgTKdiVJvcQsBlLXMrJK0cIMTrEgJ2D7D4VPF1Q2QeWzDgOy QtF9FaUNNmMnHiFASyGcLdQH2ICp0HUdR6XSR0qBFpJe8AENArMYMZZsYpOW2NVRc= ID Date Data Source [id number] 12/25/2020 11:15:12 AM EDT [facility] Name Value Range Interpretation Code Description Data Deepa rce(s) Supporting Document(s) Leukocytes [#/volume] in Blood by Automated count 3.3 10*3/uL 4-10 L [facility] Erythrocytes [#/volume] in Blood by Automated count 3.35 10*6/uL 4.1- 5.3 L [facility] Hemoglobin [Mass/volume] in Blood 10.8 g/dL 11.5-15.5 L [facility] Hematocrit [Volume Fraction] of Blood by Automated count 31.8 % 3 6-45 L [facility] Erythrocyte mean corpuscular volume [Entitic volume] by Auto mated count 94.9 fL 80-96 [facility] Erythrocyte mean corpuscular hemoglobin [Entitic mass] by Automated count 32.2 pg 27-33 [facility] Erythrocyte mean corpuscular hemoglobin concentration [Mass/volume] by Automated count 33.9 g/dL 32.0-36.0 [facility] Erythrocyte distribution width [Ratio] by Automated count 17.5 % 11.5-14.5 H [facility] Platelets [#/volume] in Blood by Automated count 168 10*3/uL 150-400 [facility] Differential cell count method - Blood [facility] Neutrophils/100 leukocytes in Blood by Automated count 40 % [facility] Lymphocytes/100 leukocytes in Blood by Automated count 45 % [facility] Monocytes/100 leukocytes in Blood by Automated count 14 % [facility] Eosinophils/100 leukocytes in Blood by Automated count 1 % [facility] Basophils/100 leukocytes in Blood by Automated count 0 % [facility] Neutrophils [#/volume] in Blood by Automated count 1.30 10*3/uL 1.8-7 .0 L [facility] Lymphocytes [#/volume] in Blood by Automated count 1.45 10*3/uL 1.2-4 .0 [facility] Monocytes [#/volume] in Blood by Automated count 0.46 10*3/uL 0-0.8 [facility] Eosinophils [#/volume] in Blood by Automated count 0.04 10*3/uL 0-0.5 [facility] Basophils [#/volume] in Blood by Automated count 0.01 10*3/uL 0-0.2 [facility] Nucleated erythrocytes/100 leukocytes [Ratio] in Blood by Automated count 0 /100{WBCs} 0-0 [facility] ID Date Data Source [id number] 12/25/2020 11:45:52 AM EDT [facility] Name Value Range Interpretation Code Description Data Deepa rce(s) Supporting Document(s) Albumin [Mass/volume] in Serum or Plasma by Bromocresol green (BCG) dye binding method 4.2 g/dL 3.5-5.2 [facility] al Bilirubin.total [Mass/volume] in Serum or Plasma 0.3 mg/dL <1.2 [facility] Calcium [Mass/volume] in Serum or Plasma 11.4 mg/dL 8.8-10.2 H [facility] Chloride [Moles/volume] in Serum or Plasma 102 mmol/L 98-107 [facility] Creatinine [Mass/volume] in Serum or Plasma 0.61 mg/dL 0.50-0.90 [facility] Glucose [Mass/volume] in Serum or Plasma 103 mg/dL 70-140 [facility] Alkaline phosphatase [Enzymatic activity/volume] in Serum or Plasma 72 U/L 35-104 [facility] Potassium [Moles/volume] in Serum or Plasma 3.7 mmol/L 3.4-5.1 [facility] Protein [Mass/volume] in Serum or Plasma 7.2 g/dL 6.4-8.3 [facility] Sodium [Moles/volume] in Serum or Plasma 137 mmol/L 136-145 [facility] Aspartate aminotransferase [Enzymatic activity/volume] in Serum or Plasma 16 U/L <32 [facility] Urea nitrogen [Mass/volume] in Serum or Plasma 18 mg/dL 8-23 [facility] Osmolality of Serum or Plasma by calculation 286 mosm/kg 275-300 [facility] Creatinine/Urea nitrogen [Mass Ratio] in Serum or Plasma 30 [facility] Bicarbonate [Moles/volume] in Serum 26 mmol/L 22-29 [facility] Alanine aminotransferase [Enzymatic activity/volume] in Seru m or Plasma 15 U/L <33 [facility] Anion gap 3 in Serum or Plasma 9 mmol/L 8-15 [facility] Glomerular filtration rate/1.73 sq M pre dicted among non-blacks [Volume Rate/Area] in Serum or Plasma by Creatinine-based formula (MDRD) >6 0 [facility] Glomerular filtration rate/1.73 sq M pre dicted among blacks [Volume Rate/Area] in Serum or Plasma by Creatinine-based formula (MDRD) >60 [facility] ID Date Data Source [id number] 12/25/2020 05:11:41 PM EDT [facility] Name Value Range Interpretation Code Description Data Deepa rce(s) Supporting Document(s) Cancer Ag 125 [Units/volume] in Serum or Plasma 24 U/mL <38 [facility] The CA 125 assay should not be used as a screening test to detect Cancer. Its use as an aid in the management of Ovarian Cancer has been reported. CA125 values obtained using different methodologies cannot be used interchangeably. This method is manufactured by [employer] and is an electrochemiluminesence immunoassay. ID Date Data Source [id number] 12/24/2020 11:09:20 AM EDT [facility] Name Value Range Interpretation Code Description Data Deepa rce(s) Supporting Document(s) Progress Note [facility] EPQHRo4uIwXNDuLr67/VVHvfWQOxg6XcHLxuRTu2TZvhHPJlY1NuWES7oZ8kWVI6WJgRAjIgNiBxFYK7 lbm [file] AgICAgICAgICAgICAgICAgICAgICAgICAgICAgICAgICAgICAgICAgICAgICAgICAgICAgICANCiAgIC AgICAgICAgICAgICAgICAgICAgICAgICAgICAgICAg ICAgICAgICAgICAgICAgICAgICAgICAgICAgICAgICAgICAgICAgICAgICAgICAgICAgICAgICAgICAg ICAgICANCiAgICAgICAgICAgICAgICAgICAgICAgICAgICAgICAgICAgICAgICAgICAgICAgICAgICAg ICAgICAgICAgICAgICAgICAgICAgICAgICAgICAgIC AgICAgICAgICAgICAgICANCiAgICAgICAgICAgICAgICAgICAgICAgICAgICAgICAgICAgICAgICAgIC AgICAgICAgICAgICAgICAgICAgICAgICAgICAgICAgICAgICAgICAgICAgICAgICAgICAgICAgICANCi AgICAgICAgICAgICAgICAgICAgICAgICAgICAgICAg ICAgICAgICAgICAgICAgICAgICAgICAgICAgICAgICAgICAgICAgICAgICAgICAgICAgICAgICAgICAg ICAgICAgICANCiAgICAgICAgICAgICAgICAgICAgICAgICAgICAgICAgICAgICAgICAgICAgICAgICAg ICAgICAgICAgICAgICAgICAgICAgICAgICAgICAgIC AgICAgICAgICAgICAgICAgICANCiAgICAgICAgICAgICAgICAgICAgICAgICAgICAgICAgICAgICAgIC AgICAgICAgICAgICAgICAgICAgICAgICAgICAgICAgICAgICAgICAgICAgICAgICAgICAgICAgICAgIC ANCiAgICAgICAgICAgICAgICAgICAgICAgICAgICAg ICAgICAgICAgICAgICAgICAgICAgICAgICAgICAgICAgICAgICAgICAgICAgICAgICAgICAgICAgICAg ICAgICAgICAgICANCiAgICAgICAgICAgICAgICAgICAgICAgICAgICAgICAgICAgICAgICAgICAgICAg ICAgICAgICAgICAgICAgICAgICAgICAgICAgICAgIC AgICAgICAgICAgICAgICAgICAgICANCiAgICAgICAgICAgICAgICAgICAgICAgICAgICAgICAgICAgIC AgICAgICAgICAgICAgICAgICAgICAgICAgICAgICAgICAgICAgICAgICAgICAgICAgICAgICAgICAgIC AgICANCjw/tEXmI4ssxRVzhhP6J4ejCx0IZs7KQI1m v6BvFCUoNXhjviCoRnmIOkJsVCEuKibIImp7ODpaKQ8TbUPuU3PcN7KrJBmjHM5FXNXpMHZyuIRbERRv YJLcSwC8QFCfQSvtVH4JzHIiUNdpRSQvFFXoFuZjUBExOHUuKVZgRWOtFEMXRSXhLNUlMqAxZHYdSVMy XOikSBQKSE3XGaYkD0IuaH61ZBjNVs4+DQplbmRvYm jIIrV8ONAna4LbWXc5VT7KOZXaUazrp6VlFvWyRKWSVWdsIR8PCDB8SWD5YEEjKq0DKWXwP556vhPvDB 5TPh8WIeAnER7dlj0ICxCqLSHpHnsHCnh8GCrvKB5PpQJfIVeBdb2cyiIntlNXa1VzexKhwQMOCPSlWO CBIIOlouUvRKhpEqBeVHEyQW6zKa2qPPLtMSQuSsXq JECUTH5DLVBtUSBdoWAiVRWqFFOUTT5STWiqHUD2RPVjvyUbxLCqPIkiFM7HUESsyhOpJoQnJTKQZPp+ Jk1XAC6qb5GuJUivOzNpOD5tui5VJRwCOuUbE7C7bVNbE3U4DZzwOd6IQMGnIYLcXwIgLOOFJKerKW3V TF3uhpO9WU5BgJZaKCOcKXRuiWKdDBp8Z31peVHkHF xuBC6LDXY+Justina+Yi7NPVTjNUKzJURpRcFyRKJUWqYfF8ZyJ5HVf3NzE3OwDT94vQtrakByXHseYN4LCL 9aVGFdAMOJRZ5GaQNshD9hbqKzOIGdDRBXDvUkC52bbAAgQOEfDQBnTYVvMa0CNKLcT9KncfAzcFzidi GoDDBuPWOGQM2LLPzubzIjfIQeySsfWY32eCbyXG1O Jf9ZGuVtIL8tdf4MqLCmNa7WLSZySc4YXZZpTNBbUWCnQJK4ASOcRhDdWNqjKGHzBBPlEGA4DBLnHLVe DA6ZOnSdOUPmJit0QUzeHOTxZWLkhb6RSNXkLHO3ACGvQSYcGFXmQHAlBAolNWNjBQWaIEZ6HNIkIHNo EF8STwUkVVGyLNGgOdJzFKRzYGXmnt8EYPYyJDCrMI U2OhWfVAWnQUOpNYawWPXgDYJ6EzWlHDXjOOClOG1GRiHsBUOvBMb7YFZrOWMhOSTqka5BHYNxBNWlZQ KcFLByVAAlSNZtZRolZKOeKKUoCwWbUYAnPBJvWQ6NEkSjPTOuDGS2EUcwCZQrSHBvat0WZKZhMDVlRO ohShBxSIXmFLWoWAjiRTAkPXA9SGJ3LLXoBKVfAI4G WgToPWMaVGgkDoRrPXZrAOBpsp5YBCSmVJDjQUV5ReIcQQIgLMEhMAccGZDpJFXaVVGpEFCfJMIcNU4O PnKkQLAbSuA6NEVvTKXqMNFrvo3LRDLcZYEfIbKnZCOaCQUxGOCsJJdsMBIiAKP8GHT4DNMkTZCdEP4I NeElZJRsOgGkKvSsRZChJEUlba5FMHDuZXZxBDB5KT HbZQYzPIHjHTpgANYdXMS8GPS8VUNgCSXzBU9ODyDbQXHiLkF2PCbhUOJcQGGged5DBMYsTLFjVRs8Sq YtRCMuBYCsHYiwZNJjWCK2WvV4AGPqUQYsHS8DGlGsIAWmQdf1FJUjFYZqGUAusi4JOBPwARNuZsx9ZJ SyPKYjTIMwTPzeMDSxIUA6KOBkBYKcVVOrFS5BSeSr CUWtNuobOHnoTDDnALCmeb8CXPDrQWMyLCPeAHIgBUJxKVCdXPhmMIByCHA5Gmh8RTXmQEGvHI2IHyMo NDTuTlx4EuqhVOOyJHTbka2OBPZeWPGjFDt3OVUaAZQrDRKmWFuxOAEwDRBeHcXuKDIdBZNbFV4OBfWp KNWhWEE9UuRhQBXnYFQrwv7RQGQfRWL1JSX9QbMeXK YjVOUgPDh0qpAaaUDjQKb7PR3FQ5KlguGmWbjKXk3Xg803ZJS5WUZeLz0TD5bpTp8gHOVuYVYOQm1EWT w6KItiIYIeYKSlTAOjKll1WBO9HEMxOQQ2B8XbEFXlPde+HIz9YFP6YeP1ClG6IvN4FNgxDmJ9FsBeAG mtLiRdEYFfAn0yVINNVf7+QTiudFNjqZmlMNCCScNyNDX3AIprDOFAMk5M ID Date Data Source [id number] 12/18/2020 10:42:30 AM EDT [facility] Name Value Range Interpretation Code Description Data Deepa e(s) Supporting Document(s) Leukocytes [#/volume] in Blood by Automated count 2.5 10*3/uL 4-10 L [facility] Erythrocytes [#/volume] in Blood by Automated count 2.96 10*6/uL 4.1- 5.3 L [facility] Hemoglobin [Mass/volume] in Blood 9.5 g/dL 11.5-15.5 [facility] Hematocrit [Volume Fraction] of Blood by Automated count 27.7 % 3 6-45 L [facility] Erythrocyte mean corpuscular volume [Entitic volume] by Auto mated count 93.8 fL 80-96 [facility] Erythrocyte mean corpuscular hemoglobin [Entitic mass] by Automated count 32.1 pg 27-33 [facility] Erythrocyte mean corpuscular hemoglobin concentration [Mass/volume] by Automated count 34.2 g/dL 32.0-36.0 [facility] Erythrocyte distribution width [Ratio] by Automated count 14.5 % 11.5-14.5 [facility] Platelets [#/volume] in Blood by Automated count 65 10*3/uL 150-400 L [facility] Differential cell count method - Blood [facility] Neutrophils/100 leukocytes in Blood by Automated count 36 % [facility] Lymphocytes/100 leukocytes in Blood by Automated count 51 % [facility] Monocytes/100 leukocytes in Blood by Automated count 12 % [facility] Eosinophils/100 leukocytes in Blood by Automated count 1 % [facility] Basophils/100 leukocytes in Blood by Automated count 0 % [facility] Neutrophils [#/volume] in Blood by Automated count 0.90 10*3/uL 1.8-7 .0 L [facility] Lymphocytes [#/volume] in Blood by Automated count 1.31 10*3/uL 1.2-4 .0 [facility] Monocytes [#/volume] in Blood by Automated count 0.31 10*3/uL 0-0.8 [facility] Eosinophils [#/volume] in Blood by Automated count 0.01 10*3/uL 0-0.5 [facility] Basophils [#/volume] in Blood by Automated count 0.00 10*3/uL 0-0.2 [facility] Nucleated erythrocytes/100 leukocytes [Ratio] in Blood by Automated count 0 /100{WBCs} 0-0 [facility] ID Date Data Source [id number] 12/18/2020 11:10:38 AM EDT [facility] Name Value Range Interpretation Code Description Data Deepa rce(s) Supporting Document(s) Albumin [Mass/volume] in Serum or Plasma by Bromocresol green (BCG) dye binding method 4.0 g/dL 3.5-5.2 [facility] Bilirubin.total [Mass/volume] in Serum or Plasma 0.4 mg/dL <1.2 [facility] Calcium [Mass/volume] in Serum or Plasma 10.8 mg/dL 8.8-10.2 H [facility] Chloride [Moles/volume] in Serum or Plasma 105 mmol/L 98-107 [facility] Creatinine [Mass/volume] in Serum or Plasma 0.61 mg/dL 0.50-0.90 [facility] Glucose [Mass/volume] in Serum or Plasma 101 mg/dL 70-140 [facility] Alkaline phosphatase [Enzymatic activity/volume] in Serum or Plasma 70 U/L 35-104 [facility] Potassium [Moles/volume] in Serum or Plasma 4.1 mmol/L 3.4-5.1 [facility] Protein [Mass/volume] in Serum or Plasma 7.0 g/dL 6.4-8.3 [facility] Sodium [Moles/volume] in Serum or Plasma 138 mmol/L 136-145 [facility] Aspartate aminotransferase [Enzymatic activity/volume] in Serum or Plasma 15 U/L <32 [facility] Urea nitrogen [Mass/volume] in Serum or Plasma 18 mg/dL 8-23 [facility] Osmolality of Serum or Plasma by calculation 288 mosm/kg 275-300 [facility] Creatinine/Urea nitrogen [Mass Ratio] in Serum or Plasma 30 [facility] Bicarbonate [Moles/volume] in Serum 25 mmol/L 22-29 [facility] Alanine aminotransferase [Enzymatic activity/volume] in Seru m or Plasma 17 U/L <33 [facility] Anion gap 3 in Serum or Plasma 8 mmol/L 8-15 [facility] Glomerular filtration rate/1.73 sq M pre dicted among non-blacks [Volume Rate/Area] in Serum or Plasma by Creatinine-based formula (MDRD) >6 0 [facility] Glomerular filtration rate/1.73 sq M pre dicted among blacks [Volume Rate/Area] in Serum or Plasma by Creatinine-based formula (MDRD) >60 [facility] ID Date Data Source [id number] 12/18/2020 12:56:25 PM EDT [facility] Name Value Range Interpretation Code Description Data Deepa rce(s) Supporting Document(s) Cancer Ag 125 [Units/volume] in Serum or Plasma 23 U/mL <38 [facility] The CA 125 assay should not be used as a screening test to detect Cancer. Its use as an aid in the management of Ovarian Cancer has been reported. CA125 values obtained using different methodologies cannot be used interchangeably. This method is manufactured by [employer] and is an electrochemiluminesence immunoassay. ID Date Data Source [id number] 12/10/2020 11:00:00 AM EDT [facility] Name Value Range Interpretation Code Description Data Deepa rce(s) Supporting Document(s) Follow Up [facility] YTBXLu4mFwXRGhKpZMQiBezISRwwDGjkZYEgU9S2JGwcFm8GFXmrbnIpEXVeFs6+UNSaFH0qam3fWKOs y [file] Mdcn2SNgPoBgYsazbEX/LdFnuimYaszogmpywuY+Fv GYEJTwqWmMrvVdA24P6uhApemgzFvyhRciTyUVMnobtTmSqBoo+VwXINoC4tTHfSyqXFgJAesgK18hcb zXWvDpC1usxJ5NuwQxWsPap899pmhb6jbrRHPs7i2+pYiSbBm6ykUHPvj7yvLuKbi7g2nRUL0F+rAJJm CdovGK9o/wA+RuMVEY0wOmZz29YlMwv/X8Gyy425Gb qiuz2QanPeBhuhq0L+A4IWeniGLcwve7nr75LjKlqClUl7Sf1PiwKs5ig06EvrfnrOdeug752Ey04vXw F/a8yqwx6EG5FPTbdUHPJp6GMzsdfk94aKczVPeMOELSH7TNhbdQR5pWZf6viIsxdZX+PmIwKlGh3VKe D9Q7nNplJK2twzwADBIiVUspG8BdzdSrbVOXXAmtrZ 0XNo7dqyk7jTY/HGYYCwIobaE7QO+xaNMMuRRWxS+k+FqlzdGVUy6MMWOvs2NTzxSdsQ0xxZvaT/c3rL 7GjAP3iPRZ0RvCu/R2Qz9rEm4GSMF0c2zCDYlxtfUYkx9Ox4waPMTVEvNjMKobWCK+b3FVXYFf8wnTpg XUGHKnYRCG7MlGsia8/i1RTxyo4OCh6IQV3RUBrT0K VvkvDKVc6W+aFUL3u7ZhA+yo8tAzNE/cQXVJEDi8qDKT2tjS1Skp1KpcYO0Q+EJ1U2/EiNBKhtFbioBW 5/bspvnwmO3yzBCS+fO7/08Vt3FQdc1epJsQzYpFy31ySmBAK+PD9GpXgDJKoh+4G3XZnqempilxiRvO //mFd+KCyRv0mpaWJdSGDJETtd0+nqS+W6xr7rwcyq PiPL88FjWiVPMYpAUcEjbKSLpujLeqw7uTwDfXw0gJC61Sd2gBZQ4/qcnSKvd1PorICr+7SFnBey7ZID QFguDMXq30TPh+ls9BmU8qdpkDvlwjfPcByFW/lBCmGnNz2afntq6sc6bKftdTgoC9q0Zk2qiU66/Public Defender [file] dvT/X8ch091bx0Y7aqrYOq8Ld8BCPdVstDB0cTJw/Lg80PjjDwyIe3Rol4StCgYD+S8veJUcj7u0p+professor of psychology [file] 155tYcmTgd1Dfdlz+WcUP+dF6zPOvFWlqso8xj/LIVESTOCK FEEDER [file] [facility]//QeuqxD8PaTx4LIbdrbhr0yW69RtD2ViudDM/ [file] [employer]/PYx5GmZLbtlNCCDtMNR0JR9nN0j33aUPTdm28pXB2U564pgbL5HA2DrWiiVYUJDiOiLBWRg7UnYVT [file] PRD95e4QrDuRrHA+EFRAÍN+wXJW2iJhVdQW0N7csSCkEoQTCGjjIet4unLuo82cp9hHEly/HXHqlWgww+fC [file] mnVOIVdNmZ8xTICuGPS0l2YMM9eFYg+pSslXV5o2ZWeQC7Yt5fjDiBUtlMq+yPAmzmwQvo/XJOjn+josé eLHUXJoq37zaDi8GUX8/CSuE6p0VlxHyEJhb/n3r9+ddaMFaF+54eUlZttVYHqRXQfBj0ZrQPtWtE9fU 9t9A6Qpiu2Py4gHz5rQG46eVzG57PqT3xlDHxgN+Tr VLmLIwGwELyV5jAFa41FSAcXCNqI7Bl9dCjqpX/xkDYTh0l+MMxgETx444XEr6kAvFa+laxzTEfGh+IX jSOQS3fOQjMPeqSItq1vampj0RmIBEBtMaLpyNwK8HxBhzleQ/rei8PjQX0riJV3PZcidnGJQrFCIrQ0 pO+fQuWd01pv8sbinE7pkeq98prpooRmsCigjn04fe [file] 6mvOeXoiJjxVn7zSAVP/F0zZEazLtg6x9eRt9eCMMZGYU+zWi/MAqBVuPtpKttrmtlBidG+Jose J/8Kcne [file] E93IRuQhl/1wSJffLssU+y3Px00xv6rI8rk1PbShPRbT7/1xazuPz1SHoX2tn8+1EwJjN8Mf03EsX/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 [file] 0h19IjTFLkkKWkD0PLjfU7Y7rAfRNDegaI0+nw+dRN/q/Y13Tpc8oLcUf1iph0Z07CqMlO3g9kzy+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] 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 care officer+2tSBO1IHcp4SINxZaTgQzibvVGJTE1GYRq3RXTKOBf89ZnfaDZnRiOgz0AKP22XD/1sbnSCmuSzi [file] 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/wPU+psxhTQTHQQyzVK5Vx7ScHV/pdPZo/NPhwvZ [file] cyber threat analyst+3xZYPl++LB1lop/9dQncAfy5bmUIbm9tah6cyaapt75itZwhaU0h58xcuxJM2UuoMbnt1d2JwjM9 Mf/AhAs5ouwVltqPaLkkPTb9Rse+b3jZO+lprIMsoJGZ8KFa1VGkrPQgNEjw9iF73FuwkzaqXvzr36wM l8fyRdCe0/BjXa1AO6Wdz8o59AfPDlipw/1eM9s7k/ dE3Ki7wz/q7EfNkYpuYXjq+IcLmDVM98a7ea07roWklehF74CxhTbXr3zOvxeAMnPsXnPdPQi7Gs3c1k KEmGPZ2s66eoX0YXjLZ9YE+dKM8Zd+M37gzSzhEZGKQQpNVQuyOkZoDyH6TzRANKa8B97m4AtAqbDZ7d V0DRzxEiTfaetvzl+16jj0xarjgpXcqTiMwtyaQjI6 [file] y8ANP+GfPqSONbL/Oceanographic Meteorologist+LC62axTfAbfHTJTUlsfGgbj [file] G3hf/Adam/7j/zLqNz//I3t21waILuNbGPY0rsLqoS8wupEkWteXLOArFEInFoiOXWfrRTTkE7WnRNOmXt 7zvOWtPT6TQyZXEwZmRNBwEVQ0ZCMrNQLkGVXpIc6YqXd3RFLiHaBEBpCaEBK8itQjnO3luyHnPzeRRA GnNFLiEtvLGZpeNpbtqGNxCF6TnRN6ZWWdZ82xBQ9G XR4bvNcsFlKtYDMqDsb9BOSPEFXEIESFR1ILMiu0WFIyXIC8B3SZWJH5PFS6Xg7wTGT2VJK9CGXZKCZn LhQmXFkPHCVpZYreWeL5WmlSLPJ5Jh8xDr7erTGjYXZdUs7BmbPkHYGxFLEWS4QeofZlFAlfAClnKFEr TUVhZk7RAJiyFIIoWK8+RzY7hpZyaJ3TvFyoBYNlKE VpABPjYVUSVU4BwBnJEGRooXBWtTSQb9JeawwW6RiZIsZpFyBEGGXTR0EEQDzhkkwlUEz/6QuI/OzKAA Neru3JLNmqpbQncLCeYD9KJnNxKT7cem5RStA4AJD1aNCmLl5LVQP2VNCwLh5LBHSNI8J= ID Date Data Source [id number] 12/04/2020 11:01:51 AM EDT [facility] Name Value Range Interpretation Code Description Data Deepa rce(s) Supporting Document(s) Albumin [Mass/volume] in Serum or Plasma by Bromocresol green (BCG) dye binding method 4.0 g/dL 3.5-5.2 [facility] Bilirubin.total [Mass/volume] in Serum or Plasma 0.4 mg/dL <1.2 [facility] Calcium [Mass/volume] in Serum or Plasma 11.1 mg/dL 8.8-10.2 [facility] Chloride [Moles/volume] in Serum or Plasma 99 mmol/L 98-107 [facility] Creatinine [Mass/volume] in Serum or Plasma 0.65 mg/dL 0.50-0.90 [facility] Glucose [Mass/volume] in Serum or Plasma 142 mg/dL 70-140 [facility] Alkaline phosphatase [Enzymatic activity/volume] in Serum or Plasma 75 U/L 35-104 [facility] Potassium [Moles/volume] in Serum or Plasma 3.0 mmol/L 3.4-5.1 L [facility] Protein [Mass/volume] in Serum or Plasma 7.0 g/dL 6.4-8.3 [facility] Sodium [Moles/volume] in Serum or Plasma 135 mmol/L 136-145 L [facility] Aspartate aminotransferase [Enzymatic activity/volume] in Serum or Plasma 15 U/L <32 [facility] Urea nitrogen [Mass/volume] in Serum or Plasma 16 mg/dL 8-23 [facility] Osmolality of Serum or Plasma by calculation 284 mosm/kg 275-300 [facility] Creatinine/Urea nitrogen [Mass Ratio] in Serum or Plasma 25 [facility] Bicarbonate [Moles/volume] in Serum 27 mmol/L 22-29 [facility] Alanine aminotransferase [Enzymatic activity/volume] in Seru m or Plasma 14 U/L <33 [facility] Anion gap 3 in Serum or Plasma 9 mmol/L 8-15 [facility] Glomerular filtration rate/1.73 sq M pre dicted among non-blacks [Volume Rate/Area] in Serum or Plasma by Creatinine-based formula (MDRD) >6 0 [facility] Glomerular filtration rate/1.73 sq M pre dicted among blacks [Volume Rate/Area] in Serum or Plasma by Creatinine-based formula (MDRD) >60 [facility] ID Date Data Source [id number] 12/04/2020 11:15:10 AM EDT [facility] Name Value Range Interpretation Code Description Data Deepa rce(s) Supporting Document(s) Leukocytes [#/volume] in Blood by Automated count 5.0 10*3/uL 4-10 [facility] Erythrocytes [#/volume] in Blood by Automated count 3.61 10*6/uL 4.1- 5.3 L [facility] Hemoglobin [Mass/volume] in Blood 11.1 g/dL 11.5-15.5 L [facility] Hematocrit [Volume Fraction] of Blood by Automated count 32.5 % 3 6-45 L [facility] Erythrocyte mean corpuscular volume [Entitic volume] by Auto mated count 90.1 fL 80-96 [facility] Erythrocyte mean corpuscular hemoglobin [Entitic mass] by Automated count 30.6 pg 27-33 [facility] Erythrocyte mean corpuscular hemoglobin concentration [Mass/volume] by Automated count 34.0 g/dL 32.0-36.0 [facility] Erythrocyte distribution width [Ratio] by Automated count 14.8 % 11.5-14.5 H [facility] Platelets [#/volume] in Blood by Automated count 30 10*3/uL 150-400 [facility] Called to and read back by MEEK Alvarez RN AT 1114 BY 2046Confirmed Differential cell count method - Blood [facility] Neutrophils/100 leukocytes in Blood by Automated count 62 % [facility] Lymphocytes/100 leukocytes in Blood by Automated count 26 % [facility] Monocytes/100 leukocytes in Blood by Automated count 10 % [facility] Eosinophils/100 leukocytes in Blood by Automated count 2 % [facility] Basophils/100 leukocytes in Blood by Automated count 0 % [facility] Neutrophils [#/volume] in Blood by Automated count 3.07 10*3/uL 1.8-7 .0 [facility] Lymphocytes [#/volume] in Blood by Automated count 1.28 10*3/uL 1.2-4 .0 [facility] Monocytes [#/volume] in Blood by Automated count 0.49 10*3/uL 0-0.8 [facility] Eosinophils [#/volume] in Blood by Automated count 0.12 10*3/uL 0-0.5 [facility] Basophils [#/volume] in Blood by Automated count 0.01 10*3/uL 0-0.2 [facility] Nucleated erythrocytes/100 leukocytes [Ratio] in Blood by Automated count 0 /100{WBCs} 0-0 [facility] ID Date Data Source [id number] 11/28/2020 05:24:00 AM EDT [facility] Received: 11/27/2020 at 10:24:00 QPT : [facility], [address], [address] [place], [address], Wyatt Cates MD Name Value Range Interpretation Code Description Data Deepa rce(s) Supporting Document(s) ID Date Data Source [id number] 11/28/2020 05:24:00 AM EDT [facility] Received: 11/27/2020 at 10:24:00 QPT : [facility], [address], [address] [place], [address], Wyatt Cates MD Name Value Range Interpretation Code Description Data Deepa rce(s) Supporting Document(s) Glucose [Mass/volume] in Serum or Plasma 120 mg/dL 65-99 Above high normal [facility] Fasting reference intervalFor someone without known diabetes, a glucose valuebetween 100 and 125 mg/dL is consistent withprediabetes and should be confirmed with afollow-up test. Urea nitrogen [Mass/volume] in Serum or Plasma 17 mg/dL 7 -25 Normal (applies to non-numeric results) [facility] Creatinine [Mass/volume] in Serum or Plasma 0.76 mg/dL 0.50 -0.99 Normal (applies to non-numeric results) [facility] For patients >49 years of age, the refer ence limitfor Creatinine is approximately 13% higher for peopleidentified as -[place]. eGFR NON-AFR. [place] 82 mL/min/1.73m2 > OR = 60 Normal ( applies to non-numeric results) [facility] eGFR 95 mL/min/1.73m2 > OR = 60 Normal (a pplies to non-numeric results) [facility] Urea nitrogen/Creatinine [Mass Ratio] in Serum or Plasma NOT APPLICABLE (calc) 6-22 [facility] Sodium [Moles/volume] in Serum or Plasma 136 mmol/L 135-146 Normal (applies to non-numeric results) [facility] Potassium [Moles/volume] in Serum or Plasma 3.9 mmol/L 3.5- 5.3 Normal (applies to non-numeric results) [facility] Chloride [Moles/volume] in Serum or Plasma 101 mmol/L 98-11 0 Normal (applies to non-numeric results) [facility] Carbon dioxide, total [Moles/volume] in Serum or Plasma 29 mmol/ L 20-32 Normal (applies to non-numeric results) [facility] Calcium [Mass/volume] in Serum or Plasma 11.1 mg/dL 8.6-10.4 Above high normal [facility] Protein [Mass/volume] in Serum or Plasma 7.8 g/dL 6.1-8.1 Normal (applies to non-numeric results) [facility] Albumin [Mass/volume] in Serum or Plasma 4.6 g/dL 3.6-5.1 Normal (applies to non-numeric results) [facility] Globulin [Mass/volume] in Serum by calculation 3.2 g/dL (calc) 1 .9-3.7 Normal (applies to non-numeric results) [facility] Albumin/Globulin [Mass Ratio] in Serum or Plasma 1.4 (calc) 1.0-2.5 Normal (applies to non-numeric results) [facility] Bilirubin.total [Mass/volume] in Serum or Plasma 1.0 mg/dL 0.2-1.2 Normal (applies to non-numeric results) [facility] Alkaline phosphatase [Enzymatic activity/volume] in Serum or Plasma 64 U/L 37-153 Normal (applies to non-numeric results) [facility] Aspartate aminotransferase [Enzymatic activity/volume] in Serum or Plasma 25 U/L 10-35 Normal (applies to non-numeric results) [facility] Alanine aminotransferase [Enzymatic activity/volume] in Seru m or Plasma 27 U/L 6-29 Normal (applies to non-numeric results) [facility] Your request to have a duplicate copy faxed has been acknowledged. Queued to: [id number] ID Date Data Source [id number] 11/25/2020 08:19:55 AM [facility] Hospital Name Value Range Interpretation Code Description Data Deepa rce(s) Supporting Document(s) Leukocytes [#/volume] in Blood by Automated count 4.9 10*3/uL 4-10 [facility] Erythrocytes [#/volume] in Blood by Automated count 3.88 10*6/uL 4.1- 5.3 L [facility] Hemoglobin [Mass/volume] in Blood 12.0 g/dL 11.5-15.5 [facility] Hematocrit [Volume Fraction] of Blood by Automated count 35.5 % 3 6-45 L [facility] Erythrocyte mean corpuscular volume [Entitic volume] by Auto mated count 91.5 fL 80-96 [facility] Erythrocyte mean corpuscular hemoglobin [Entitic mass] by Automated count 31.0 pg 27-33 [facility] Erythrocyte mean corpuscular hemoglobin concentration [Mass/volume] by Automated count 33.8 g/dL 32.0-36.0 [facility] Erythrocyte distribution width [Ratio] by Automated count 17.4 % 11.5-14.5 H [facility] Platelets [#/volume] in Blood by Automated count 165 10*3/uL 150-400 [facility] Differential cell count method - Blood [facility] Neutrophils/100 leukocytes in Blood by Automated count 47 % [facility] Lymphocytes/100 leukocytes in Blood by Automated count 34 % [facility] Monocytes/100 leukocytes in Blood by Automated count 9 % [facility] Eosinophils/100 leukocytes in Blood by Automated count 9 % [facility] Basophils/100 leukocytes in Blood by Automated count 1 % [facility] Neutrophils [#/volume] in Blood by Automated count 2.33 10*3/uL 1.8-7 .0 [facility] Lymphocytes [#/volume] in Blood by Automated count 1.66 10*3/uL 1.2-4 .0 [facility] Monocytes [#/volume] in Blood by Automated count 0.43 10*3/uL 0-0.8 [facility] Eosinophils [#/volume] in Blood by Automated count 0.43 10*3/uL 0-0.5 [facility] Basophils [#/volume] in Blood by Automated count 0.02 10*3/uL 0-0.2 [facility] Nucleated erythrocytes/100 leukocytes [Ratio] in Blood by Automated count 0 /100{WBCs} 0-0 [facility] ID Date Data Source [id number] 11/25/2020 09:56:25 AM EDT [facility] Name Value Range Interpretation Code Description Data Deepa rce(s) Supporting Document(s) Albumin [Mass/volume] in Serum or Plasma by Bromocresol green (BCG) dye binding method 4.5 g/dL 3.5-5.2 [facility] Bilirubin.total [Mass/volume] in Serum or Plasma 0.5 mg/dL <1.2 [facility] Calcium [Mass/volume] in Serum or Plasma 11.6 mg/dL 8.8-10.2 H [facility] Chloride [Moles/volume] in Serum or Plasma 101 mmol/L 98-107 [facility] Creatinine [Mass/volume] in Serum or Plasma 0.72 mg/dL 0.50-0.90 [facility] Glucose [Mass/volume] in Serum or Plasma 145 mg/dL 70-140 H [facility] Alkaline phosphatase [Enzymatic activity/volume] in Serum or Plasma 60 U/L 35-104 [facility] Potassium [Moles/volume] in Serum or Plasma 3.3 mmol/L 3.4-5.1 L [facility] Protein [Mass/volume] in Serum or Plasma 7.7 g/dL 6.4-8.3 [facility] Sodium [Moles/volume] in Serum or Plasma 137 mmol/L 136-145 [facility] Aspartate aminotransferase [Enzymatic activity/volume] in Serum or Plasma 17 U/L <32 [facility] Urea nitrogen [Mass/volume] in Serum or Plasma 18 mg/dL 8-23 [facility] Osmolality of Serum or Plasma by calculation 288 mosm/kg 275-300 [facility] Creatinine/Urea nitrogen [Mass Ratio] in Serum or Plasma 25 [facility] Bicarbonate [Moles/volume] in Serum 28 mmol/L 22-29 [facility] Alanine aminotransferase [Enzymatic activity/volume] in Seru m or Plasma 16 U/L <33 [facility] Anion gap 3 in Serum or Plasma 8 mmol/L 8-15 [facility] Glomerular filtration rate/1.73 sq M pre dicted among non-blacks [Volume Rate/Area] in Serum or Plasma by Creatinine-based formula (MDRD) 88 mL/min/1.73m2 >60 [facility] Glomerular filtration rate/1.73 sq M pre dicted among blacks [Volume Rate/Area] in Serum or Plasma by Creatinine-based formula (MDRD) >60 [facility] ID Date Data Source [id number] [facility]57[facility] Interpretation Code Description Data Deepa rce(s) Supporting Document(s) Cancer Ag 125 [Units/volume] in Serum or Plasma 32 U/mL <38 [facility] The CA 125 assay should not be used as a screening test to detect Cancer. Its use as an aid in the management of Ovarian Cancer has been reported. CA125 values obtained using different methodologies cannot be used interchangeably. This method is manufactured by [employer] and is an electrochemiluminesence immunoassay. ID Date Data Source [id number] 11/17/2020 01:33:00 PM EDT [facility] ([facility]) Name Value Range Interpretation Code Description Data Deepa rce(s) Supporting Document(s) Thyrotropin [Units/volume] in Serum or Plasma by Detec tion limit <= 0.05 mIU/L 0.85 uIU/mL 0.36-3.74 [facility] ([facility] ) ID Date Data Source [id number] 10/23/2020 08:06:20 AM T [facility] Name Value Range Interpretation Code Description Data Deepa rce(s) Supporting Document(s) Progress Note [facility] [id number] lb [file] [id number]== ID Date Data Source [id number] 10/23/2020 08:06:00 AM EDT [facility] Name Value Range Interpretation Code Description Data Deepa rce(s) Supporting Document(s) SARS-CoV-2 RNA 2018 nCoV Real-Time RT-PCR: NOT DETECTED [facility] This lab was ordered by [facility] and reported by [facility]. 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 [facility] Patient has symptoms related to condition [facility] When did you start to experience these symptoms [Date and time] [Phen X] [facility] Patient was hospitalized because of this condition [facility] patient was admitted to ICU for [facility] Patient resides in a congregate care setting [facility] status [facility] ID Date Data Source [id number] 09/30/2020 09:19:02 AM EDT [facility] Name Value Range Interpretation Code Description Data Deepa rce(s) Supporting Document(s) Leukocytes [#/volume] in Blood by Automated count 3.2 10*3/uL 4-10 L [facility] Erythrocytes [#/volume] in Blood by Automated count 3.45 10*6/uL 4.1- 5.3 [facility] Hemoglobin [Mass/volume] in Blood 9.0 g/dL 11.5-15.5 [facility] Hematocrit [Volume Fraction] of Blood by Automated count 28.0 % 3 6-45 L [facility] Erythrocyte mean corpuscular volume [Entitic volume] by Auto mated count 81.3 fL 80-96 [facility] Erythrocyte mean corpuscular hemoglobin [Entitic mass] by Automated count 26.2 pg 27-33 L [facility] Erythrocyte mean corpuscular hemoglobin concentration [Mass/volume] by Automated count 32.2 g/dL 32.0-36.0 [facility] Erythrocyte distribution width [Ratio] by Automated count 26.1 % 11.5-14.5 H [facility] Platelets [#/volume] in Blood by Automated count 309 10*3/uL 150-400 [facility] Differential cell count method - Blood [facility] Neutrophils/100 leukocytes in Blood by Automated count 48 % [facility] Lymphocytes/100 leukocytes in Blood by Automated count 39 % [facility] Monocytes/100 leukocytes in Blood by Automated count 13 % [facility] Neutrophils [#/volume] in Blood by Automated count 1.54 10*3/uL 1.8-7 .0 L [facility] Lymphocytes [#/volume] in Blood by Automated count 1.25 10*3/uL 1.2-4 .0 [facility] Monocytes [#/volume] in Blood by Automated count 0.42 10*3/uL 0-0.8 [facility] Anisocytosis [Presence] in Blood by Light microscopy [facility] Microcytes [Presence] in Blood by Light microscopy [facility] Polychromasia [Presence] in Blood by Light microscopy [facility] ID Date Data Source [id number] 09/30/2020 09:40:22 AM EDT [facility] Name Value Range Interpretation Code Description Data Deepa rce(s) Supporting Document(s) Albumin [Mass/volume] in Serum or Plasma by Bromocresol green (BCG) dye binding method 3.6 g/dL 3.5-5.2 [facility] Bilirubin.total [Mass/volume] in Serum or Plasma 0.4 mg/dL <1.2 [facility] Calcium [Mass/volume] in Serum or Plasma 10.5 mg/dL 8.8-10.2 H [facility] Chloride [Moles/volume] in Serum or Plasma 103 mmol/L 98-107 [facility] Creatinine [Mass/volume] in Serum or Plasma 0.61 mg/dL 0.50-0.90 [facility] Glucose [Mass/volume] in Serum or Plasma 122 mg/dL 70-140 [facility] Alkaline phosphatase [Enzymatic activity/volume] in Serum or Plasma 70 U/L 35-104 [facility] Potassium [Moles/volume] in Serum or Plasma 3.5 mmol/L 3.4-5.1 [facility] Protein [Mass/volume] in Serum or Plasma 7.4 g/dL 6.4-8.3 [facility] Sodium [Moles/volume] in Serum or Plasma 138 mmol/L 136-145 [facility] Aspartate aminotransferase [Enzymatic activity/volume] in Serum or Plasma 21 U/L <32 [facility] Urea nitrogen [Mass/volume] in Serum or Plasma 17 mg/dL 8-23 [facility] Osmolality of Serum or Plasma by calculation 289 mosm/kg 275-300 [facility] Creatinine/Urea nitrogen [Mass Ratio] in Serum or Plasma 29 [facility] Bicarbonate [Moles/volume] in Serum 27 mmol/L 22-29 [facility] Alanine aminotransferase [Enzymatic activity/volume] in Seru m or Plasma 16 U/L <33 [facility] Anion gap 3 in Serum or Plasma 8 mmol/L 8-15 [facility] Glomerular filtration rate/1.73 sq M pre dicted among non-blacks [Volume Rate/Area] in Serum or Plasma by Creatinine-based formula (MDRD) >6 0 [facility] Glomerular filtration rate/1.73 sq M pre dicted among blacks [Volume Rate/Area] in Serum or Plasma by Creatinine-based formula (MDRD) >60 [facility] ID Date Data Source [id number] 10/02/2020 02:05:20 PM [facility] Value Range Interpretation Code Description Data Deepa rce(s) Supporting Document(s) Cancer Ag 125 [Units/volume] in Serum or Plasma 67 U/mL <38 H [facility] The CA 125 assay should not be used as a screening test to detect Cancer. Its use as an aid in the management of Ovarian Cancer has been reported. CA125 values obtained using different methodologies cannot be used interchangeably. This method is manufactured by [employer] and is an electrochemiluminesence immunoassay. ID Date Data Source [id number] 09/28/2020 04:08:27 PM [facility] Name Value Range Interpretation Code Description Data Deepa rce(s) Supporting Document(s) Progress Note [facility] [id number] lbm [file] AgICAgICAgICAgICAgICAgICAgICAgICAgICAgICAgICAgICAgICAgICAgICAgICAgICAgICAgICAgIC AgICAgICAgICAgICAgICAgICAgICAgICAgICAgICANCiAgICAgICAgICAgICAgICAgICAgICAgICAgIC AgICAgICAgICAgICAgICAgICAgICAgICAgICAgICAg ICAgICAgICAgICAgICAgICAgICAgICAgICAgICAgICAgICAgICAgICANCiAgICAgICAgICAgICAgICAg ICAgICAgICAgICAgICAgICAgICAgICAgICAgICAgICAgICAgICAgICAgICAgICAgICAgICAgICAgICAg ICAgICAgICAgICAgICAgICAgICAgICANCiAgICAgIC AgICAgICAgICAgICAgICAgICAgICAgICAgICAgICAgICAgICAgICAgICAgICAgICAgICAgICAgICAgIC AgICAgICAgICAgICAgICAgICAgICAgICAgICAgICAgICANCiAgICAgICAgICAgICAgICAgICAgICAgIC AgICAgICAgICAgICAgICAgICAgICAgICAgICAgICAg ICAgICAgICAgICAgICAgICAgICAgICAgICAgICAgICAgICAgICAgICAgICANCiAgICAgICAgICAgICAg ICAgICAgICAgICAgICAgICAgICAgICAgICAgICAgICAgICAgICAgICAgICAgICAgICAgICAgICAgICAg ICAgICAgICAgICAgICAgICAgICAgICAgICANCiAgIC AgICAgICAgICAgICAgICAgICAgICAgICAgICAgICAgICAgICAgICAgICAgICAgICAgICAgICAgICAgIC AgICAgICAgICAgICAgICAgICAgICAgICAgICAgICAgICAgICANCiAgICAgICAgICAgICAgICAgICAgIC AgICAgICAgICAgICAgICAgICAgICAgICAgICAgICAg ICAgICAgICAgICAgICAgICAgICAgICAgICAgICAgICAgICAgICAgICAgICAgICANCiAgICAgICAgICAg ICAgICAgICAgICAgICAgICAgICAgICAgICAgICAgICAgICAgICAgICAgICAgICAgICAgICAgICAgICAg ICAgICAgICAgICAgICAgICAgICAgICAgICAgICANCi AgICAgICAgICAgICAgICAgICAgICAgICAgICAgICAgICAgICAgICAgICAgICAgICAgICAgICAgICAgIC AgICAgICAgICAgICAgICAgICAgICAgICAgICAgICAgICAgICAgICANCjw/oDQdF4mqmLIubrM4K3imBv 3PKp7DKE1wr6FxVHWoVIvqokJdYkwMBbWlFNSmOixU Ouq3SMrnPP1GvDJeG6ZyF7BvXVtuBI5JKYUrYODpqSDaGQQdGBMcQoY3UJHrQZlxQX8VnCNdCNueVGLq VBNzOsFwCXZbXSDhEQCfRHWtWGIGHAVrQHHrYoSdXOQvTQEkENxyIJUAVE4RVqWdQ7QyeN79HWpKRa0+ DStnnrGjXxbZBbV8MZCpf9DxDFm0NB3FUOPdEhmri8 OrNjdtGSRJWWzcAK7WFNE4EGS4CZEsTj7STGHgU938uwAvVC6XRb2FWnXnXF2nle4MPttvPYQnQzrTJi s0NTkxQA9SuNMzMDtIua1lzgXcneMJx1YavaUikGYJCTOgPNABHZYunzKnOIquUxVtLENiLQ9uBT4wSA KbGHS8VdRnABIBGG1QXLSrOVXusWSmLGHvJDQSON5P HYnuIZA2XRMaajFulJAcSUmtAF4OWBGtteSrLaliFCXBAJg+Uc2XCD2ma3XxXBsmNTUqHY9vdx1DAJdC EmUaV0Z1qTCaA8E5FEgfSq1VJDUhXVVhKmFsEJLYORgkKO4VLX3eptD3XL4NyXCeLCCeFKTpaQTkXPl5 M25ctFEwQEviRD2UMMR+Justina+Ij9KABMoCDUlNZHbLq SnHGXTVsSxN3EoP4XWs5AlN7NrHZ04qKzcybZlWLzvGW9ALI2jQPBhTGJRJN0PcTVcuA6xodFcRjLpWQ ZOPkMlI43hsNEwXJBmIRH1GODoRu0AQXTpQ6GzblJleZcfdqJpUMMvMYFIDL9QUFwqnxFgnVNvkZxhNX 40dNqqCY8WGz4AZfMkHZ7peb9LbAKtKi6UIYY6GW3P WVArYVKnMVFrDKS7VJQjMrBoUPqlLGFxADGyXMS2IIFcLUVhDK7MHrOgRNJhBAA1UUFhRXVeBXZxfj1R RWFyKSU3MKCpUkHvHIWqEIQcUHhsPCSfBYFsIVQ5YDPtVSBsPE0ZMoCbAVHcLCOmBmRlAZNkSXDdph1J VQWcJAKjDRPdJvLeAQOrCWRxMJgpCNAhUZA6MSLuZA ZaFAHoKX3YVcHvMLRdYAvwZZhhVYCtVSXdri0VDBGjKOUqRiCuDfBzNGYeJMMzAIddPLDuKFCvWpKsUG DpZJSaKZ4VIwKfSLRaBAWiPJXjSMZaYEXwah0WBYFlODZeUWE5QfAiFMFqNRBcEQmxILAgVWG1TNV0WO RbWEEnXK4EGbStGMCuQIp1XdSjMTGxCIUder2MWMOr JGEeKpAqPPKzZDQiSVKxUGolTUNxEMDaLfMqTNDrPYFfMP8BZyLuOVMwGuY7YGhwUNWwJZQbxo0QHMEv SMJxNNXeMWNzWDGqXUDaWYuvPBFgOWO6INA9QXWqGIWgTK0VIcRvIXSjLgZpGtTmZAOlXXPqol0IQOQx OUKpFqD4TZYgHECjHBRtHKoaJSAdSOI8KXR1GFJkFC CaZD7UKgAqKTKaZwd4FYUbAXJsRAZyit8ZQQKiAQCiKlb7CCNnFUDvXKWzWXnzWIUzYYM9BiH3OATqTF CaTX9UFkUbTYCjVxd8ONklJHFnLNEnlv8WFYWmUZWuJLw2XEShKVHgBHDdHQqqDKJjWEJzLXC9MIRrMD VxPY6DEyDjMLUyWDQzDIYdCTSqAWGufj1GFLKtPRS9 RFQ4PWCpVSXgGGCwUMhtAOKvTFYoCdw4NYUiMCOvLV5DCkRyELYaDZE0ThFyZENdXJLqxw1SISSgUXI2 XhRrTCPnYUIfEGIlNRjjYXFpVOFlDSo9GHThRXVfJV9KBrYqGMWnFRQ0XzLcAQHrVJZktv7BMYMsPGX5 CqG5ClBpKVYdJDFxJVivJZGcUFV5VhyoLNAaUFZnGV 8YTqFqWFRhVKK4HFIsEILgDMXzjt0PFNIhCRO2AVn8OGFuXWJvOYEiHMj3ivDhrPYdDDp4XY7LK6Xihg FvFEIUPw9Ir976AVL4NXNaHp9LZ8unHa7zAYQaOWHDEn7TSXb0RsU4KMGaRiO0TcGvUKWbJoQ5YuK6TK [id number]+DDfdPAl3UhPxAsTiBbX4ZqGnVgHe DDT3ITRpCHghQCA0BS8dNVARBj3+YYsgwRCzdKgpPEKTPhE5TTN6UHlzDHAQQg9N ID Date Data Source [id number] 09/29/2020 06:00:00 AM EDT [facility] Received: 09/28/2020 at 09:32:00 QPT : [facility], [facility] [place] , [address] [place] [address], [phone], Wyatt Cates MD Received: 09/28/2020 at 09:32:00 QPT : [facility], [facility] Rajwinder Quinn, [address] [place] [address], [phone], Wyatt Cates MD Name Value Range Interpretation Code Description Data Deepa rce(s) Supporting Document(s) ID Date Data Source [id number] 09/29/2020 06:00:00 AM EDT [facility] Received: 09/28/2020 at 09:32:00 QPT : [facility], [facility], [address] [place] [address], [phone], Wyatt Cates MD Received: 09/28/2020 at 09:32:00 QPT : [facility], [address] [place] , [address] [place] [address], [phone], Wyatt Cates MD Name Value Range Interpretation Code Description Data Deepa rce(s) Supporting Document(s) Leukocytes [#/volume] in Blood by Automated count 3.1 Thousand/u L 3.8-10.8 Below low normal [facility] Erythrocytes [#/volume] in Blood by Automated count 3.48 Million /uL 3.80-5.10 Below low normal [facility] Hemoglobin [Mass/volume] in Blood 9.3 g/dL 11.7-15.5 Below low nor mal [facility] Hematocrit [Volume Fraction] of Blood by Automated count 29.5 % 35.0-45.0 Below low normal [facility] Erythrocyte mean corpuscular volume [Entitic volume] by Auto mated count 84.8 fL 80.0-100.0 Normal (applies to non-numeric results) [facility] Erythrocyte mean corpuscular hemoglobin [Entitic mass] by Automated count 26.7 pg 27.0-33.0 Below low normal [facility] Erythrocyte mean corpuscular hemoglobin concentration [Mass/volume] by Automated count 31.5 g/dL 32.0-36.0 Below low normal [facility] Erythrocyte distribution width [Ratio] by Automated count 22.6 % 11.0-15.0 Above high normal [facility] Platelets [#/volume] in Blood by Automated count 231 Thousand/uL 140-400 Normal (applies to non-numeric results) [facility] Platelet mean volume [Entitic volume] in Blood by Luis-Pooja 9.6 fL 7.5-12.5 Normal (applies to non-numeric results) [facility] Neutrophils [#/volume] in Blood by Automated count 1479 cells/uL 0789-7915 Below low normal [facility] Lymphocytes [#/volume] in Blood by Automated count 1181 cells/uL 850-3900 Normal (applies to non-numeric results) [facility] Monocytes [#/volume] in Blood by Automated count 400 cells/uL 200-950 Normal (applies to non-numeric results) [facility] Eosinophils [#/volume] in Blood by Automated count 31 cells/uL 15-500 Normal (applies to non-numeric results) [facility] Basophils [#/volume] in Blood by Automated count 9 cells/uL 0-200 Normal (applies to non-numeric results) [facility] Neutrophils/100 leukocytes in Blood by Automated count 47.7 % 38-80 Normal (applies to non-numeric results) [facility] Lymphocytes/100 leukocytes in Blood by Automated count 38.1 % 15-49 Normal (applies to non-numeric results) [facility] Monocytes/100 leukocytes in Blood by Automated count 12.9 % 0-13 Normal (applies to non-numeric results) [facility] Eosinophils/100 leukocytes in Blood by Automated count 1.0 % 0-8 Normal (applies to non-numeric results) [facility] Basophils/100 leukocytes in Blood by Automated count 0.3 % 0-2 Normal (applies to non-numeric results) [facility] ID Date Data Source [id number] 09/29/2020 06:00:00 AM EDT [facility] Received: 09/28/2020 at 09:32:00 QPT : [facility], [address], [address] [place], [phone], Wyatt Cates MD Received: 09/28/2020 at 09:32:00 QPT : [facility], [address], [address] [place], [phone], Wyatt Cates MD Name Value Range Interpretation Code Description Data Deepa rce(s) Supporting Document(s) Morphology [Interpretation] in Blood Narrative N ORMAL Normal (applies to non- numeric results) [facility] Anisocytosis 3 +Polychromasia 2 +Hypochr omasia 2 + Your request to have a duplicate copy faxed has been acknowledged. Queued to: [id number] ID Date Data Source [id number] 09/25/2020 08:21:29 AM EDT [facility] Name Value Range Interpretation Code Description Data Deepa rce(s) Supporting Document(s) Leukocytes [#/volume] in Blood by Automated count 3.3 10*3/uL 4-10 L [facility] Erythrocytes [#/volume] in Blood by Automated count 3.31 10*6/uL 4.1- 5.3 [facility] Hemoglobin [Mass/volume] in Blood 8.5 g/dL 11.5-15.5 [facility] Hematocrit [Volume Fraction] of Blood by Automated count 26.2 % 3 6-45 [facility] Erythrocyte mean corpuscular volume [Entitic volume] by Auto mated count 79.4 fL 80-96 [facility] Erythrocyte mean corpuscular hemoglobin [Entitic mass] by Automated count 25.8 pg 27-33 [facility] Erythrocyte mean corpuscular hemoglobin concentration [Mass/volume] by Automated count 32.5 g/dL 32.0-36.0 [facility] Erythrocyte distribution width [Ratio] by Automated count 19.6 % 11.5-14.5 [facility] Platelets [#/volume] in Blood by Automated count 77 10*3/uL 150-400 [facility] Differential cell count method - Blood [facility] Neutrophils/100 leukocytes in Blood by Automated count 46 % [facility] Lymphocytes/100 leukocytes in Blood by Automated count 39 % [facility] Monocytes/100 leukocytes in Blood by Automated count 14 % [facility] Eosinophils/100 leukocytes in Blood by Automated count 1 % [facility] Basophils/100 leukocytes in Blood by Automated count 0 % [facility] Neutrophils [#/volume] in Blood by Automated count 1.56 10*3/uL 1.8-7 .0 L [facility] Lymphocytes [#/volume] in Blood by Automated count 1.28 10*3/uL 1.2-4 .0 [facility] Monocytes [#/volume] in Blood by Automated count 0.45 10*3/uL 0-0.8 [facility] Eosinophils [#/volume] in Blood by Automated count 0.02 10*3/uL 0-0.5 [facility] Basophils [#/volume] in Blood by Automated count 0.01 10*3/uL 0-0.2 [facility] Nucleated erythrocytes/100 leukocytes [Ratio] in Blood by Automated count 0 /100{WBCs} 0-0 [facility] ID Date Data Source [id number] 09/25/2020 08:48:03 AM EDT [facility] Name Value Range Interpretation Code Description Data Deepa rce(s) Supporting Document(s) Albumin [Mass/volume] in Serum or Plasma by Bromocresol green (BCG) dye binding method 4.1 g/dL 3.5-5.2 [facility] Bilirubin.total [Mass/volume] in Serum or Plasma 0.3 mg/dL <1.2 [facility] Calcium [Mass/volume] in Serum or Plasma 10.3 mg/dL 8.8-10.2 H [facility] Chloride [Moles/volume] in Serum or Plasma 102 mmol/L 98-107 [facility] Creatinine [Mass/volume] in Serum or Plasma 0.66 mg/dL 0.50-0.90 [facility] Glucose [Mass/volume] in Serum or Plasma 104 mg/dL 70-140 [facility] Alkaline phosphatase [Enzymatic activity/volume] in Serum or Plasma 80 U/L 35-104 [facility] Potassium [Moles/volume] in Serum or Plasma 3.4 mmol/L 3.4-5.1 [facility] Protein [Mass/volume] in Serum or Plasma 7.8 g/dL 6.4-8.3 [facility] Sodium [Moles/volume] in Serum or Plasma 137 mmol/L 136-145 [facility] Aspartate aminotransferase [Enzymatic activity/volume] in Serum or Plasma 24 U/L <32 [facility] Urea nitrogen [Mass/volume] in Serum or Plasma 14 mg/dL 8-23 [facility] Osmolality of Serum or Plasma by calculation 285 mosm/kg 275-300 [facility] Creatinine/Urea nitrogen [Mass Ratio] in Serum or Plasma 21 [facility] Bicarbonate [Moles/volume] in Serum 29 mmol/L 22-29 [facility] Alanine aminotransferase [Enzymatic activity/volume] in Seru m or Plasma 24 U/L <33 [facility] Anion gap 3 in Serum or Plasma 6 mmol/L 8-15 L [facility] Glomerular filtration rate/1.73 sq M pre dicted among non-blacks [Volume Rate/Area] in Serum or Plasma by Creatinine-based formula (MDRD) >6 0 [facility] Glomerular filtration rate/1.73 sq M pre dicted among blacks [Volume Rate/Area] in Serum or Plasma by Creatinine-based formula (MDRD) >60 [facility] ID Date Data Source [id number] 09/25/2020 09:47:33 AM [facility] Value Range Interpretation Code Description Data Deepa rce(s) Supporting Document(s) Ferritin [Mass/volume] in Serum or Plasma 151 ng/ml 13-150 H [facility] ID Date Data Source [id number] 09/25/2020 10:42:44 AM [facility] Value Range Interpretation Code Description Data Deepa rce(s) Supporting Document(s) Iron [Mass/volume] in Serum or Plasma 66 ug/dl 37-145 [facility] Transferrin [Mass/volume] in Serum or Plasma 238 mg/dL 200-360 [facility] Iron binding capacity [Mass/volume] in Serum or Plasma 331 ug/dl 228 -428 [facility] Iron saturation [Mass Fraction] in Serum or Plasma 20.0 % 20-55 [facility] ID Date Data Source [id number] [facility] Interpretation Code Description Data Deepa rce(s) Supporting Document(s) Cancer Ag 125 [Units/volume] in Serum or Plasma 80 U/mL <38 H [facility] The CA 125 assay should not be used as a screening test to detect Cancer. Its use as an aid in the management of Ovarian Cancer has been reported. CA125 values obtained using different methodologies cannot be used interchangeably. This method is manufactured by [employer] and is an electrochemiluminesence immunoassay. ID Date Data Source [id number] 09/04/2020 03:32:41 PM EDT [facility] Name Value Range Interpretation Code Description Data Deepa rce(s) Supporting Document(s) Progress Note [facility] YALGYl8yBeSZOqAv54/NXGpqAYOre4KmDSwiUTq8ADiaTBKhZ8AdZXY9lI9pLTC7EMoTXtFsTjXrTCJp lbm [file] 80JiuSlDvNFrTMq2dITho3ivk59tU//7CsU/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/4rhT/8SZ3A8h1GXIB/leAsPqLc1NXN5Ij9sQIjK6V [file] enrolled nurse/5vTMyJgYWGC93+Wf+MvDbf5PS11EAW6S0ewhG3+qQVd/N8lNs7l59mR3uHujjKpdhpsqG+Pgj8Hm [file] ICAgICAgICAgICAgICAgICAgICAgICAgICAgICAgIC LfASJrXNHrDYUwXOFgTQSiSYQgGSCnGVDqLKUaSZQiHALsYYBdSJXrHQUsNKUzWXKiLTSyBW9DOASoQI AgICAgICAgICAgICAgICAgICAgICAgICAgICAgICAgICAgICAgICAgICAgICAgICAgICAgICAgICAgIC AgICAgICAgICAgICAgICAgICAgICAgICAgICAgICAg STRuPE0MJDHcTKSzJCBxPYIrXKPmSECqNEPvAAVaHONeUZUaBOExFATeYCBpNHGlVJZsAFUuOUQbJPCi BTXzTARnTRCpEFNiIXJdBJEbDNKcXMUpNUIqYNDnEPIlBXTiLRBrKUPeXVVmQQ2NAFSjZGGtEYVnJSIh ICAgICAgICAgICAgICAgICAgICAgICAgICAgICAgIC UvQNHzFCVnLOOxCIOtIMZmPQGqWBWcZLRoYEBiMFPjNBRtQGFaEHHkBHVoHTJhMLIxDODjXGRcIA0LYE AgICAgICAgICAgICAgICAgICAgICAgICAgICAgICAgICAgICAgICAgICAgICAgICAgICAgICAgICAgIC AgICAgICAgICAgICAgICAgICAgICAgICAgICAgICAg WKXePXSjDO3ALZHhYXItTEQxJLRxPJRoWSZvRPHuVWTyKDLoQHEaUXIaTIMjUOFxODPlJLVrCHQbCYSg STQqUTAfUAHsREDoZWHuULFxZJQrJELwGERjRYEtUTIzOUWeHSSmPBEyXGNmJDOjDX6UTVUaZDAfZNTj ICAgICAgICAgICAgICAgICAgICAgICAgICAgICAgIC AgICAgICAgICAgICAgICAgICAgICAgICAgICAgICAgICAgICAgICAgICAgICAgICAgICAgICAgICAgIA 0KICAgICAgICAgICAgICAgICAgICAgICAgICAgICAgICAgICAgICAgICAgICAgICAgICAgICAgICAgIC AgICAgICAgICAgICAgICAgICAgICAgICAgICAgICAg SFLuRSLfXARyZO6KIPIkTHSeVRJrOMDxKDXqPJPrCEYqDZBxQNFsFNDpKRMmEQNpLONiINLaYSCiGYYt XWNgLIUdGMYvPYLyDRZqIJTdYRTtZLFyCVGgPCEtKSCaGIBkWCUaBYEeKAVzEYEuZCNvMB7FRXRmMHIn ICAgICAgICAgICAgICAgICAgICAgICAgICAgICAgIC AgICAgICAgICAgICAgICAgICAgICAgICAgICAgICAgICAgICAgICAgICAgICAgICAgICAgICAgICAgIC OxTG5CWE08qDWyz1P6HGPlVI4xrzc/Wd5WMBvanlCqhZOfFL3ALqUaJM7nms1MTkSrXS4ehh5UJRxEEg LkA8R8fNTpLOMyIEVIFnEwR24pQUkxLv32AAtwBFNj IjTgRZk6Mr4FHcReU4dwBVIrLaM2FYHtAkY6SZSvVpD9UMNcSyLvHXRcKBXrLR4MTZOsO477sdQbYZ8X Yx5MBcWmVC0ttw6HAzHfOWJhJopKJkj9NYlaMU9MvCMhhAVlCzTuWFTWVgCqZ0qmx9OaAlDsROSLKWhn JF6Tw6LybRSrZJq+Pa7ERZ1pr2AtYQnoNuFjJH6dlp 1MABdIYoUjM1EttPqbFLXvv7jpCQPhYW3dpSOzAVP7ARJzdE6xDQRka57kbUuaMKXdLFXvMJ0xFC4eTF OaACO9OjL4JGVLXX7EAGHgJHKaqUYnVLTcPTGNGY0CBWcaLUO4ZXAlooNfqDYeYJqhLI3CXFQfqpLkDl UgMCBSDQo+Qd9NGH6no4HfRMquShCdKC1gof5YTWlS JhEbH6F5mZKcD1X7SDjjGh1VTXXiCMYrGwQdHJDVLPopXT1YSE7klnE2RR3AuIVvXEGbSEFprLXsHFw1 F66udIAcCFneMU5FBBS+Justina+Zp5IALSbRGWtGIYdMoKhITSXWsSjE0RkM5NVa2EiR9PmQJ29gJkcrmIc RJneKZ7CHT5rRSUyUVSKJX4VnIDhtK9opoAwQHXkRC CVOiOlH08guXYlCOPdAGX6WGTnQz0WHFDeC3NesmZxySpodzAdREMuBAIIIT7RHMkmqaGsdEQmnDciTV 12oJhqRX6VQp3GViIjAS9yur5IpYEzYr3BAZXkIE4HOYDcJXWoQJWfHZG7GMNnYbHfQNecHVWwBRKmOF Y1HNGiQRMuZD3GLuAxMRFbRvcgLAUlQXBqDZBjxy0X SCNdJKHkAHy0LFRjAKRsWCTlAZhxMZNwJBHeOQK2BKNrIOVhEJ4HZkSsUVLdRGEgFdHgRJJbKGNidt0H GLKgNHCvFVQ6RWOhJBNcVLXfGDwjLHAyGBB2Tno3VRUwXROqEA1AOyXhIFGxZQn4DPOyBSBuQUVmgp6C HLJiEBSvHVP4XDWgAKGnNTRhAHshSFFsTYHqKFM1NC PrRNIlWR2ENeRqOYYnYHC4CHgyJNWjFLYfah6IUYSkRBOqGRN9BUYlALDvMJIlTZirCPUrUGH5MSP7TY QiBDXsUG3GXqBwXVSxNLJuOjYxAAYhFZXrhx4EKHTaJWJzIOIxLIIsXJZmKGSqFKofCDOoINL0ZVZ4KP GjZDTvVH5MUjWcZFKbPHD1MaNeWLYpDRYcle1FAYPq JWTsZyl2XGXoTSAaVKRuYTkuHFNwJQF0YnM7JOXtUFFnBM6WLbFwCHDuIxx7QsMoLUTmNWExjo5MWNKr ZMJuUXtaGZOrIMHcHMHqXZqfPTGyGFL2FJe2YDKeOAHwHK6PIfBoPXQrMpyqAeBwZPNiJPTbnn0YGMZe NCRjOYNwPFQeIWOuJFAmVBucHGStRZGiLMq7UVZrBM WmNH6ELzVlFNXdOpNlOExhGPWsJCFtwf1AWFRtQCAcWPN7EeOoKDTfGHOjQAo1rkRelKVlGUe6HE8WQ1 GmneGvSahQFj5Uu367ELP3QNFrJo4LZ8kiBr4qYCEqPHTPBn0ARTr9YwVvIQPrThA7Z1D7ELZ6GzJbMP F3WNNgKMb7XfY3HYY+MBnbSDM8PhEkXzb7NCp7WRDf TeCuATZuMEAqHPPlGXZ7GW2zNXIDDc7+JPybfPAieVjkBIEYEwHmIYOwUWluFBKAIb5I ID Date Data Source [id number] 09/04/2020 08:37:37 AM EDT [facility] Name Value Range Interpretation Code Description Data Deepa rce(s) Supporting Document(s) Leukocytes [#/volume] in Blood by Automated count 5.7 10*3/uL 4-10 [facility] Erythrocytes [#/volume] in Blood by Automated count 4.13 10*6/uL 4.1- 5.3 [facility] Hemoglobin [Mass/volume] in Blood 10.6 g/dL 11.5-15.5 [facility] Hematocrit [Volume Fraction] of Blood by Automated count 32.5 % 3 6-45 L [facility] Erythrocyte mean corpuscular volume [Entitic volume] by Auto mated count 78.7 fL 80-96 L [facility] Erythrocyte mean corpuscular hemoglobin [Entitic mass] by Automated count 25.5 pg 27-33 L [facility] Erythrocyte mean corpuscular hemoglobin concentration [Mass/volume] by Automated count 32.4 g/dL 32.0-36.0 [facility] Erythrocyte distribution width [Ratio] by Automated count 17.8 % 11.5-14.5 H [facility] Platelets [#/volume] in Blood by Automated count 304 10*3/uL 150-400 [facility] Differential cell count method - Blood [facility] Neutrophils/100 leukocytes in Blood by Automated count 67 % [facility] Lymphocytes/100 leukocytes in Blood by Automated count 20 % [facility] Monocytes/100 leukocytes in Blood by Automated count 11 % [facility] Eosinophils/100 leukocytes in Blood by Automated count 1 % [facility] Basophils/100 leukocytes in Blood by Automated count 1 % [facility] Neutrophils [#/volume] in Blood by Automated count 3.88 10*3/uL 1.8-7 .0 [facility] Lymphocytes [#/volume] in Blood by Automated count 1.14 10*3/uL 1.2-4 .0 L [facility] Monocytes [#/volume] in Blood by Automated count 0.61 10*3/uL 0-0.8 [facility] Eosinophils [#/volume] in Blood by Automated count 0.03 10*3/uL 0-0.5 [facility] Basophils [#/volume] in Blood by Automated count 0.04 10*3/uL 0-0.2 [facility] Nucleated erythrocytes/100 leukocytes [Ratio] in Blood by Automated count 0 /100{WBCs} 0-0 [facility] ID Date Data Source [id number] 09/04/2020 09:15:16 AM EDT [facility] Name Value Range Interpretation Code Description Data Deepa rce(s) Supporting Document(s) Albumin [Mass/volume] in Serum or Plasma by Bromocresol green (BCG) dye binding method 3.6 g/dL 3.5-5.2 [facility] Bilirubin.total [Mass/volume] in Serum or Plasma 0.5 mg/dL <1.2 [facility] Calcium [Mass/volume] in Serum or Plasma 10.8 mg/dL 8.8-10.2 H [facility] Chloride [Moles/volume] in Serum or Plasma 97 mmol/L 98-107 L [facility] Creatinine [Mass/volume] in Serum or Plasma 0.59 mg/dL 0.50-0.90 [facility] Glucose [Mass/volume] in Serum or Plasma 125 mg/dL 70-140 [facility] Alkaline phosphatase [Enzymatic activity/volume] in Serum or Plasma 105 U/L 35-104 H [facility] Potassium [Moles/volume] in Serum or Plasma 3.7 mmol/L 3.4-5.1 [facility] Protein [Mass/volume] in Serum or Plasma 8.7 g/dL 6.4-8.3 H [facility] Sodium [Moles/volume] in Serum or Plasma 131 mmol/L 136-145 L [facility] Aspartate aminotransferase [Enzymatic activity/volume] in Serum or Plasma 22 U/L <32 [facility] Urea nitrogen [Mass/volume] in Serum or Plasma 14 mg/dL 8-23 [facility] Osmolality of Serum or Plasma by calculation 273 mosm/kg 275-300 L [facility] Creatinine/Urea nitrogen [Mass Ratio] in Serum or Plasma 23 [facility] Bicarbonate [Moles/volume] in Serum 27 mmol/L 22-29 [facility] Alanine aminotransferase [Enzymatic activity/volume] in Seru m or Plasma 16 U/L <33 [facility] Anion gap 3 in Serum or Plasma 7 mmol/L 8-15 L [facility] Glomerular filtration rate/1.73 sq M pre dicted among non-blacks [Volume Rate/Area] in Serum or Plasma by Creatinine-based formula (MDRD) >6 0 [facility] Glomerular filtration rate/1.73 sq M pre dicted among blacks [Volume Rate/Area] in Serum or Plasma by Creatinine-based formula (MDRD) >60 [facility] ID Date Data Source [id number] 09/04/2020 04:42:34 PM [facility] Name Value Range Interpretation Code Description Data Deepa rce(s) Supporting Document(s) Cancer Ag 125 [Units/volume] in Serum or Plasma 499 U/mL <38 H [facility] The CA 125 assay should not be used as a screening test to detect Cancer. Its use as an aid in the management of Ovarian Cancer has been reported. CA125 values obtained using different methodologies cannot be used interchangeably. This method is manufactured by [employer] and is an electrochemiluminesence immunoassay. 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 Consent: Following discussion of the risks, benefits and alternatives of the procedure, written informed consent was obtained. Moderate Sedation: I performed Moderate Sedation with intravenous 0.5 mg Versed and 25 mcg of fentanyl for 30 minutes.COMPARISON: No prior studies available for comparison.TIME OUT: Prior to the procedure a time out was performed in the presence of the patient and all personnel involved in this case. The patient identity, procedure type, procedure side/site, and allergies were verified.Intravenous antibiotic was given preprocedure..........................................................TECHNIQUE: Position: The patient was transferred to the IR laboratory and was positioned supine on the procedural table. Venous Entry: Real-time ultrasound examination of the neck demonstrated a patent right internal jugular vein, which was documented. The right internal jugular vein was chosen for placement of the catheter. The neck and anterior chest were prepped and draped utilizing all elements of maximal sterile barrier technique.Procedure: Using direct ultrasound guidance, access was gained into the vein. Local anesthesia was provided with buffered lidocaine A subcutaneous pocket was created over the anterior chest wall. A tunnel was created between the pocket and the venotomy site. The catheter was carried through the tunnel. It was clamped using two hemostats. It was then inserted under fluoroscopy. The tip of the catheter was positioned at the right atrium. The catheter was then cut to appropriate length and subsequently attached to the port. The port was placed within the pocket in standard fashion.The pocket was closed in two layers with the deep layer being a 3-O Vicryl absorbable suture and the most superficial layer being a subcuticular 4-O running Vicryl absorbable suture. The port was aspirated and flushed successfully. It was then loaded with the appropriate dwelling solution. Dermabond adhesive was applied to the suture lines and the venotomy site.A sterile, occlusive dressing was placed on the skin over the catheter entry site. FINDINGS: The final position of the tip of the catheter is at the right atrium.IMPRESSION: Successful placement of a right internal jugular vein single lumen power port. Okay to use port.This document has been electronically signed by Trisha Brumfield DO on 08/27/2020 1:15 PM Name Value Range Interpretation Code Description [facility]s) ID Date Data Source [id number] 08/27/2020 10:51:45 AM EDT [facility] Name Value Range Interpretation Code Description Data Deepa rce(s) Supporting Document(s) Progress Note [facility] MYVLSo5xRtSNHfFy51/PZTfrFFXxl0XaUTkaYVr7SJkaHTCwH1RnADG7xR9kTOF8VOxTIgMaScBmHNKm lbm [file] AgICAgICAgICAgICAgICAgICAgICAgICAgICAgICAg ADQbPAUlDZXiKGZjHCSuGEEnXAYhWOBiXRRsMYUiAURxLXGdCLSrBAWyPEIkLZAiQEMfALTnTI1WPMYn ICAgICAgICAgICAgICAgICAgICAgICAgICAgICAgICAgICAgICAgICAgICAgICAgICAgICAgICAgICAg ICAgICAgICAgICAgICAgICAgICAgICAgICAgICAgIC UhITJoHY9KJJWqTKHbYFAnEEYeSTUxWRDxLVHiMUBdFMSfWOWxPBZfMDLqRXFmUXCpDJLnGPKjQLSiCC BtSIEcOVDpQSUkJIQmOGJuEJQwETSoPWMpYJKoPRQzEYAmOYVzKTKnYYOaUTUwBL1TATCfPJEmXIEpJH AgICAgICAgICAgICAgICAgICAgICAgICAgICAgICAg BFCtAYXzPDWqQRRcXZTxKCFxIBJwOYKoFHJjQXBnBPSpZKGiVDZiGIXvFHUdXYHmNLBcDPJoGEIkSO7W ICAgICAgICAgICAgICAgICAgICAgICAgICAgICAgICAgICAgICAgICAgICAgICAgICAgICAgICAgICAg ICAgICAgICAgICAgICAgICAgICAgICAgICAgICAgIC DlAEDtVKKxRU6NOOSnSNAtERZwQARzSIWkNRPfJQStOOFwMVFnSPFmTNOiOMVdLTFnNYPmWFFrRHGgVV GnDVHyFYUjFSVfHRMlJLLsYUKxWMHqXIUiTZCtWWFiSAKsOSTwOUZaONFmCLRuCTRxCQ7HEPOfDAHuBD AgICAgICAgICAgICAgICAgICAgICAgICAgICAgICAg ICAgICAgICAgICAgICAgICAgICAgICAgICAgICAgICAgICAgICAgICAgICAgICAgICAgICAgICAgICAg EW7NASZvQMOzUEMhPBOaTRQnNWKuCOPgDGXgYLOpHVKzMEFdTDBxSHZbHOZqFWFhCLYeZERpTPXaLPUr ICAgICAgICAgICAgICAgICAgICAgICAgICAgICAgIC DdOHArSLJmSAYeCQ2DAKBgHGIwHWRgIUVgTZHeCBYxLHChOKPqLFNtHXOwTSQqQNRbKMHfCMHeEQQoFE ZgCJZeNBArELHmFIWoPIKpEIXxYDWkYVGyZWXrXOWsPBEaGEPoTGYtQHJnWVFpRDOqCZDpEI4BZX12gM Gtc1L8VXNhGZ5upft/Dh7HUTvfwgYjfNWtGW6GHoQk MJ2xhk7MGdNgOG9fmw1EIDgOAvZpZ8X7eBSlKAWwKTYBWnErY52jUJlbZz11ZMcnXSKqWuDnORu3Ep0H AiOwT5fdPSEaLmT5SICcDcLkMMiyYG7At3BieQSkJTe+Ka3RKH3aj9ViNCfxFFFzII0ktu0EHLcOMuUe D5UfzsC9EGQ4SNTfAs0HJSXlLZZacLXkJKLwILIELp UoM5EgjF73ZXPVAr7+IMabqcSgQzgBRvN6PGTsc6AzJGk0UJ5IUXNxVVq1yMMkCJFoQ5Yxy8ObPn80IK QjNjxzNVTuvHNsITXmYc4aCKrnLw0qLLHoOD9iUr4uULRiQWSkRwUfQIGYAV0MPZZdPXNydMNzVFCuHU MDOJ4FGPwaXBO0TOCbioLxcOCyPHigNN6GCCAalkDg MTQgMCBSDQo+Ur7KDS2ae7OqWMxsAlSdMK2pce2VIJfIMjYyO1L9gZIgX4B1DVevQw0DTLJeMPLwSSVy VPZXOSvtWX6PPW2lcpS0GL1SaHGjAYPgHGOinETtAWy3W89cqOQeMMxeZX4FZBW+Justina+Mq4QKZXlIVZc YXGtYsWoMIPPZvIsS8AzX3KLq9RqK7TpPB17eCknoz YfRTweSW7ZNJ4vRGVsMEDKGO4RtYCuxA0nhqDyKIAnLKOBFeIqK69eaKYrBGUiGZFeCLGkRr8RAHFbS6 FuksRzvBqbpaHaGGQvVAOIBL4VZRfxlbTzmIEcePzeOR65lLooAP7AZd3IHkOqUY2roa3ZrAPfFx8XYS ZnOj5WZKOkDADlDCJyRRB9ZVVrJhRjWHgpANPjDHMr VQI8CKCqSSOxTY8CCwReNQYlKOF5YVOjCTEuUHWssk4AGBBuZKPlGaW4PoVxVEEoIRXaWPlyPQFjTORk VKA3WYOmQTXdUX9LPmKoIWTdQLGoQUGeAUBwPRGjtg9PLCFuJNEoVaK3NkGoWXZaMUHtZTzaGGNtUPGj FqP8CGWrTQBvOS2MDlEbEUGpZQN1WLDqWOVeSUCthp 9ESYWdMTUtOcH7XOUfBUZiAATqNUzxZLVfBYM8TRR0BNKbVXJmWN1QGbDpBITgDUL1TQXwPFEaTEYkrv 4RNJIrBRHqSJvySRDiPERoQSUgOCobEZSzHUB9VjBxZVDnEOKgVJ5RVaQoDKKsKGG8MfHdWVBrIBGaja 2LYIHmHVJqWou6NSTlERCpVZGlLXkiLMKuWYE5JJw9 TLKuZCAbMW3TIuYcLZwwKRJKDxi4SJhcC1z2GDFqQy6DC2Brq7NvETYjICYVRNsmAK0vytQhWTUqJh6T Q2cGVzu5PRKqUpLpPrD7IFGpHkT7ZsixPYCxZPr7NWOqNFBpQG9tEAY7OVMfSLKqKlkbLZM1ELFsERQm JaO3SVq6QSPhBhGlDpGyHQ0XFj6UNnH1UBK9bEZsVu3LTxCcJh4KXHXMM4KPAb== ID Date Data Source [id number] 08/27/2020 08:46:32 AM EDT [facility] Name Value Range Interpretation Code Description Data Deepa rce(s) Supporting Document(s) History and Physical [facility] MGCZJa4uEvTZCrJr13/UWHrzHRYcb9VhIDfeWQg9BVcxVRKtN5GxWLE0cB7yRKW8REaEQlZtQuKsNZCe lbm [file] NaMDusEwCcBs3ZAZTCW8LFPe== ID Date Data Source [id number] 08/27/2020 07:37:01 AM EDT [facility] Name Value Range Interpretation Code Description Data Deepa rce(s) Supporting Document(s) Leukocytes [#/volume] in Blood by Automated count 9.2 10*3/uL 4-10 [facility] Erythrocytes [#/volume] in Blood by Automated count 4.40 10*6/uL 4.1- 5.3 [facility] Hemoglobin [Mass/volume] in Blood 11.1 g/dL 11.5-15.5 [facility] Hematocrit [Volume Fraction] of Blood by Automated count 34.4 % 3 6-45 L [facility] Erythrocyte mean corpuscular volume [Entitic volume] by Auto mated count 78.2 fL 80-96 L [facility] Erythrocyte mean corpuscular hemoglobin [Entitic mass] by Automated count 25.2 pg 27-33 L [facility] Erythrocyte mean corpuscular hemoglobin concentration [Mass/volume] by Automated count 32.3 g/dL 32.0-36.0 [facility] E[facility]throcyte distribution width [Ratio] by Automated count 16.8 % 11.5-14.5 H [facility] Platelets [#/volume] in Blood by Automated count 67 10*3/uL 150-400 L [facility] Differential cell count method - Blood [facility] Neutrophils/100 leukocytes in Blood by Automated count 78 % [facility] Lymphocytes/100 leukocytes in Blood by Automated count 12 % [facility] Monocytes/100 leukocytes in Blood by Automated count 9 % [facility] Eosinophils/100 leukocytes in Blood by Automated count 1 % [facility] Basophils/100 leukocytes in Blood by Automated count 0 % [facility] Neutrophils [#/volume] in Blood by Automated count 7.17 10*3/uL 1.8-7 .0 H [facility] Lymphocytes [#/volume] in Blood by Automated count 1.13 10*3/uL 1.2-4 .0 L [facility] Monocytes [#/volume] in Blood by Automated count 0.78 10*3/uL 0-0.8 [facility] Eosinophils [#/volume] in Blood by Automated count 0.11 10*3/uL 0-0.5 [facility] Basophils [#/volume] in Blood by Automated count 0.02 10*3/uL 0-0.2 [facility] Nucleated erythrocytes/100 leukocytes [Ratio] in Blood by Automated count 0 /100{WBCs} 0-0 [facility] ID Date Data Source [id number] 08/25/2020 04:09:13 PM EDT [facility] Name Value Range Interpretation Code Description Data Deepa rce(s) Supporting Document(s) Progress Note [facility] RWCKWb5iSxXFAtYw44/OTNjyICHvf3GsYSwmIXc4ODerEPTqF7KnRDW1hP2qPZE1LSlAOhKqCsDgBUSg lbm CnGccGVkGcAICjQxlYFiOzZXrcEffbsARqKS6HxJK0LKDyM68rWNDbFPUsN0TjVNTpBOP+Pm8GQOMcpS KxKI5ZSvyU9K6ccex6Br3qyR+BQIEiuYjlfT+DqtSwC5qVwIInC13z4yj7wWF0O2upUVjql802LCwY05 XNsshsuT0PVqKzsytGX64Hn2TL6Y/+e8psm8mWtu+7 +DeYA0nevu56U4Uq6smYBpz/yzrpW4hVfKX9VDhbt7/40DWlyp5KJhmS9w+utsvPTE4mgj3U3m2h3Rol 3Td0JaCBj+mZrga0kDEsTY+1MEb9ceaO6L7Ao/nmq2kDuvG76uYqPXAZClYi75xzZqh5WTssjThZknl6 0UH7/eHXfS7TzsuUQD/6kgRuXCgZ82VN9UCht9QScS vtP+slzGg9gzBNxXGIXbLs21atKHP/C8qw31WpNd+q26p4h23CLipT6dCbDED3Ao6w+qfhamh3dlGEP0 +ucVpIUoEmqtBXXcaKcfRIhyaReKh0O30dlmzLKp6A6X9OM2TSo+ysKFZTPU6/m+Yt3jJYRP8gwJjPyY Qb7MvVS0zeKssfoUkyknLK8iToby129kPf657JjYB1 bvnk++KJIcr2M5rnF4X3xFl+6wGlTwVWf4RwTRsBO8ufuPhf49Yu6I+lUtbL2q7PzK1lpFnP+3ND43mn v5LZHa19Hyyj0w5PtLae+InWsm/pENkg+xmRUprCHkWtpDptd8KucIlPBHNHq7v/FcX0AFaYzTvlAhQg nThAbUyrzDBLb0KA23M0Dk5J1/r1rjoz2eYauVDrq8 QKtkDVLeGIGcebby0LIcryF86L4+HpP5tJxfY7dvjr88YaDX8Og2X96TdEHRgBFr6UFbXoudb8OnB1Ur pItHJelIKwSVyp+moCFQRFAuxHtbrGWYMuwIXX6sPTpkfZaP7TuYs9HV23z8J/O8PmoifPoA15Vr/Vn1 V/uM99jL9RgKJ0PMs7n1BgsKbW6gPns18IhszOx2HM 1+YEIiQAsqqN2I6pM4GLbBLI95EsEf7j0jCse/DKLL7MInK0RpiFqgRMuf4IFKHxywuHgqaBInCRZ/Collision Mechanic PCj+kJlyMhyDfK8Pe6PJdNbtPth0Ej4lB3tHApUWiClYq6H2hcQWEbgfIodDnemYTRUy2Pb0wvveUfo5 7WYdzLAVnPiAFr/QImtMZ/ZAaQeKtEgvthA2BZiJnq 4dyf7iPDdEEM7IQiOlFtzbf5nDeuNMf6sqreUwoSffFgNqouBlgUZqXcVirgQ/kCt3FQi5nnTk1A/jWr 45C9s4lLxb1YAmixP3SbrWWsdud4lBN2LnevX8S5lMJwQbleWmq+qvl1ThR+ev/6Z6M16xJ6XfsXcO3m 8nrexQNPpmuVoy4DL6ZddIv8Rpin2Yp5wwfcB/Clari [file] k2W1WvKTZjWmpfIJL5OWRzYcHtUdLbARu+IF0gDQ o+Ph5Fa6FkpxU7yjVzMTp3IQmsTf6EPPOXO5GQRk== ID Date Data Source [id number] 08/25/2020 11:04:23 AM EDT [facility] Name Value Range Interpretation Code Description Data Deepa rce(s) Supporting Document(s) Albumin [Mass/volume] in Serum or Plasma by Bromocresol green (BCG) dye binding method 4.1 g/dL 3.5-5.2 [facility] Bilirubin.total [Mass/volume] in Serum or Plasma 0.2 mg/dL <1.2 [facility] Calcium [Mass/volume] in Serum or Plasma 10.5 mg/dL 8.8-10.2 H [facility] Chloride [Moles/volume] in Serum or Plasma 101 mmol/L 98-107 [facility] Creatinine [Mass/volume] in Serum or Plasma 0.71 mg/dL 0.50-0.90 [facility] Glucose [Mass/volume] in Serum or Plasma 114 mg/dL 70-140 [facility] Alkaline phosphatase [Enzymatic activity/volume] in Serum or Plasma 136 U/L 35-104 H [facility] Potassium [Moles/volume] in Serum or Plasma 3.7 mmol/L 3.4-5.1 [facility] Protein [Mass/volume] in Serum or Plasma 8.2 g/dL 6.4-8.3 [facility] Sodium [Moles/volume] in Serum or Plasma 137 mmol/L 136-145 [facility] Aspartate aminotransferase [Enzymatic activity/volume] in Serum or Plasma 32 U/L <32 H [facility] Urea nitrogen [Mass/volume] in Serum or Plasma 11 mg/dL 8-23 [facility] Osmolality of Serum or Plasma by calculation 284 mosm/kg 275-300 [facility] Creatinine/Urea nitrogen [Mass Ratio] in Serum or Plasma 15 [facility] Bicarbonate [Moles/volume] in Serum 29 mmol/L 22-29 [facility] Alanine aminotransferase [Enzymatic activity/volume] in Seru m or Plasma 23 U/L <33 [facility] Anion gap 3 in Serum or Plasma 7 mmol/L 8-15 L [facility] Glomerular filtration rate/1.73 sq M pre dicted among non-blacks [Volume Rate/Area] in Serum or Plasma by Creatinine-based formula (MDRD) 89 mL/min/1.73m2 >60 [facility] Glomerular filtration rate/1.73 sq M pre dicted among blacks [Volume Rate/Area] in Serum or Plasma by Creatinine-based formula (MDRD) >60 [facility] ID Date Data Source [id number] 08/25/2020 11:44:39 AM EDT [facility] Name Value Range Interpretation Code Description Data Deepa rce(s) Supporting Document(s) Leukocytes [#/volume] in Blood by Automated count 12.1 10*3/uL 4-10 H [facility] Erythrocytes [#/volume] in Blood by Automated count 4.60 10*6/uL 4.1- 5.3 [facility] Hemoglobin [Mass/volume] in Blood 11.3 g/dL 11.5-15.5 L [facility] Hematocrit [Volume Fraction] of Blood by Automated count 36.1 % 3 6-45 [facility] Erythrocyte mean corpuscular volume [Entitic volume] by Auto mated count 78.6 fL 80-96 L [facility] Erythrocyte mean corpuscular hemoglobin [Entitic mass] by Automated count 24.5 pg 27-33 L [facility] Erythrocyte mean corpuscular hemoglobin concentration [Mass/volume] by Automated count 31.2 g/dL 32.0-36.0 L [facility] Erythrocyte distribution width [Ratio] by Automated count 16.3 % 11.5-14.5 H [facility] Platelets [#/volume] in Blood by Automated count 150-400 [facility] Notified Joyce WILSON APC at 1143 b y 1689 Differential cell count method - Blood [facility] Neutrophils/100 leukocytes in Blood by Automated count 73 % [facility] Lymphocytes/100 leukocytes in Blood by Automated count 18 % [facility] Monocytes/100 leukocytes in Blood by Automated count 6 % [facility] Neutrophils [#/volume] in Blood by Automated count 8.83 10*3/uL 1.8-7 .0 H [facility] Lymphocytes [#/volume] in Blood by Automated count 2.18 10*3/uL 1.2-4 .0 [facility] Monocytes [#/volume] in Blood by Automated count 0.73 10*3/uL 0-0.8 [facility] Band form neutrophils/100 leukocytes in Blood by Manual count 3 % [facility] Band form neutrophils [#/volume] in Blood by Manual count 0.36 10*3 /uL 0-0.6 [facility] Anisocytosis [Presence] in Blood by Light microscopy [facility] Microcytes [Presence] in Blood by Light microscopy [facility] Toxic granules [Presence] in Blood by Light microscopy [facility] ID Date Data Source [id number] 08/24/2020 12:21:41 PM EDT [facility] Name Value Range Interpretation Code Description Data Deepa rce(s) Supporting Document(s) Progress Note 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 [facility] Patient has symptoms related to [facility] When did you start to experience these symptoms [Date and time] [Phen X] [facility] Patient was hospitalized because of this condition [facility] patient was admitted to ICU for [facility] Patient resides in a congregate care setting [facility] status [facility] ID Date Data Source [id number] 08/14/2020 03:30:12 PM EDT [facility] IR IMAGE GUIDED NEEDLE DRAIN PROCEDUREFI NAL RESULTInterpreted by:Prateek Mccracken, Mima Alcocer, MDPROCEDURE: ULTRASOUND GUIDED PARACENTESISHISTORY/INDICATION: 64-year-old female with 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 All procedural staff within the room are in agreement.PROCEDURE/FINDINGS:Limited preprocedural abdominal ultrasound demonstrated drainable ascites fluid pocket in the left lower quadrant of the elisabeth blakely, and this site was targeted for paracentesis. The overlying skin was prepped and draped with standard sterile technique. After anesthetizing with 2% buffered lidocaine for local anesthesia, direct ultrasound guidance was used to advance a 5 Fr Yueh needle into the ascites pocket and an image of this access was saved into PACS. A total of 3100 mL of tea-colored ascitic fluid was removed. A sterile dressing was placed over the puncture site.The patient tolerated the procedure well without immediate complications. IMPRESSION: Successful and uncomplicated ultrasound guided left lower quadrant paracentesis yielding 3100 mL tea colored ascitic fluid.This document has been electronically signed by Prateek Mccracken MD on 08/14/2020 3:27 PM Name Value Range Interpretation Code Description Data Deepa rce(s) Supporting Document(s) ID Date Data Source [id number] 08/14/2020 11:52:00 AM EDT [facility] Name Value Range Interpretation Code Description Data Deepa rce(s) Supporting Document(s) SARS coronavirus 2 RdRp gene Negative N [facility] This lab was ordered by [facility] and reported by [facility]. ID Date Data Source [id number] 08/14/2020 12:04:20 PM EDT [facility] Name Value Range Interpretation Code Description Data Deepa rce(s) Supporting Document(s) SARS coronavirus 2 RdRp gene Negative [facility] Test performed using the Andrews ID NOW C OVID-19 assay. This test is only for use under the Food and Drug Administration's Emergency Use Authorization. 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 [facility] Patient has symptoms related to [facility] When did you start to experience these symptoms [Date and time] [Phen X] [facility] Patient was hospitalized because of this condition [facility] patient was admitted to ICU for condition [facility] Patient resides in a congregate care setting [facility] status [facility] ID Date Data Source [id number] 08/13/2020 12:25:33 PM EDT [facility] Name Value Range Interpretation Code Description Data Deepa rce(s) Supporting Document(s) Progress Note [facility] HTRBDn7mYeWXSjRv37/QQEcrOZOkr5LjCXjjIVf3VBylDDYdM8NbJBL9qN5hQCK1EJtDMaJvVwZkYDP2 lbm [file] VqHoUUCvRjGnRR2IVi8XUbI6YKN3ySEwAu6VUcKoKVLCJwUaYW8MUCp= ID Date Data Source [id number] 08/07/2020 12:21:46 PM EDT [facility] Name Value Range Interpretation Code Description Data Deepa rce(s) Supporting Document(s) Progress Note [facility] JQKKEu4jXiZMNoJv12/TLNkhWAYqp3YkADoyBNs0SRcoZXNtN0SdQBK6aD4eZNL1KZuZGkKaTrQeGWSc lbm [file] PATIENT SITTER/1BKyllcENEpcULLOUNt6vOMQfDlPX+zFbbgHJ8Fvw6xY4I5vfNp5I3u03hWsPPMnQnd6OPJEhTjur [file] ICAgICAgICAgICAgICAgICAgICAgICAgICAgICAgIC AgICAgICAgICAgICAgICAgICAgICAgICAgICAgICAgICAgICANCiAgICAgICAgICAgICAgICAgICAgIC AgICAgICAgICAgICAgICAgICAgICAgICAgICAgICAgICAgICAgICAgICAgICAgICAgICAgICAgICAgIC AgICAgICAgICAgICAgICAgICANCiAgICAgICAgICAg ICAgICAgICAgICAgICAgICAgICAgICAgICAgICAgICAgICAgICAgICAgICAgICAgICAgICAgICAgICAg ICAgICAgICAgICAgICAgICAgICAgICAgICAgICANCiAgICAgICAgICAgICAgICAgICAgICAgICAgICAg ICAgICAgICAgICAgICAgICAgICAgICAgICAgICAgIC AgICAgICAgICAgICAgICAgICAgICAgICAgICAgICAgICAgICAgICANCiAgICAgICAgICAgICAgICAgIC AgICAgICAgICAgICAgICAgICAgICAgICAgICAgICAgICAgICAgICAgICAgICAgICAgICAgICAgICAgIC AgICAgICAgICAgICAgICAgICAgICANCiAgICAgICAg ICAgICAgICAgICAgICAgICAgICAgICAgICAgICAgICAgICAgICAgICAgICAgICAgICAgICAgICAgICAg ICAgICAgICAgICAgICAgICAgICAgICAgICAgICAgICANCiAgICAgICAgICAgICAgICAgICAgICAgICAg ICAgICAgICAgICAgICAgICAgICAgICAgICAgICAgIC AgICAgICAgICAgICAgICAgICAgICAgICAgICAgICAgICAgICAgICAgICANCiAgICAgICAgICAgICAgIC AgICAgICAgICAgICAgICAgICAgICAgICAgICAgICAgICAgICAgICAgICAgICAgICAgICAgICAgICAgIC AgICAgICAgICAgICAgICAgICAgICAgICANCiAgICAg ICAgICAgICAgICAgICAgICAgICAgICAgICAgICAgICAgICAgICAgICAgICAgICAgICAgICAgICAgICAg ICAgICAgICAgICAgICAgICAgICAgICAgICAgICAgICAgICANCiAgICAgICAgICAgICAgICAgICAgICAg ICAgICAgICAgICAgICAgICAgICAgICAgICAgICAgIC AgICAgICAgICAgICAgICAgICAgICAgICAgICAgICAgICAgICAgICAgICAgICANCjw/gPNhG7ixtICthn M0R4xpPv6QMp3XWF3rs5XmBNOyFUmsnqPlGwkNVeTpHSZaMxvBGep3ZNtaRU8NoOPnF0WmY1HwULqeIR 3CEYTlEUZwoQQcREGgOTViUtQ2EBIvONfwDK5YqEOl WRajNQGlUVAwRyFkMEAiLTMeQQVhVM0TXNQnI332hcDwZc2ZUs5YQcBhNF0kke3EAhOcVLDcLfzOFbk3 IYydIJ7VlEVlbBTiJyNaGHKGGvApY0pco3JdYzgeQFHMOWnjYJ7Zp9RryAOxKEf+Ft2DPW4sw8FzZRoz OzBiJQ6ims4ALZtKSgIyG5CvkBmhTQIfu5hrOCNoUR 6yuNGlWCM1SZPmaP8mEVKik42owDhzXYIpTSRvPG8pKbHkHbAkXJq1KCKbFA1hIDkrRS7QTTG3QJuhUE EaBJJvH0qATgRfGWDwBHLxcAfsWV1WEfGkF7WqpgVkgGLaBuCnDTSEId7+YXobniOfBvpHEcS0PLQqf0 OfDGt0RR1FESSkIIpdBQ7FZKQhiM9bHNorIG5AZlVs LHZfLUBUNzFzW31kyMGfFBo4R9FvIuDcCKFtHrmzFAVgICfxKfIvJAMdAeHuSXcbWV3+ID4+USxqSM7P ZLvuslGzHXFuIp2TRDUoWWNsXW2vHFZoWJBmO6M9bBsiPELILtPeH1jfuowcVN6qLLByY112lEalurYm OEA7XXKfLh1MGNKoPQB3CYVygKWcRhJpXUKSLBalWJ 5LyXSsSHE1mR2cTDazODAlINNpA3uVKnNvcSnoRZ98zOtqxcDddVYuGIw+An9YLK6kn3ExPHy4jbXiKU hpAAN9NAwxYFCoCDBeAIBsPBM4ZJL2PPIQHoMkSPJeGJVgPDekHIWxIBWwek4XPMWnGOQuOXf7KeKfAK WlDHHcZVajKQMrZSU6JSFiDPXrOFXrWO0ERdYdXWRn ETYgPJjwIVZeSTLdrc0ISEWrYGWaCIigOWOmFCCpTGCeLIsqENApVXA6YPGoSAXiQPMlKN0ZMlJlQYSd DRmwQoOhEJCbBQTesi1ZMQOzREDiBHUfOLVsIVYlTXYvHMbmJYHhPMZ4UaJ5TBNdWDIbXI1KCcDdUIEn NVo4FIygGJNgKGMykp6JVSMiXEQiWOT8RALkWIXsBP VnGFopUYDqLSMbBAI1INUiMIRxKW1RJxIjXQXrPCJ3EErlBLEqXQCjqz3SWMWtLCSjZFgpFPZpFHAjIP WsMDvyBOLcIATdBRJgKBOiPOQiED7XFgVzHYZuHHQiSSjjMZIsUOUtou0PGYHgHZIaBzVmQGYtICQnBX TeEZxcNAMdVOJaXDPxNTPnLUVqLD2GMeDeZTYvHuCk ZvJgLUWdNKYhor4QEYXsDNBdQZQkEeNeVBJsPODtXFwyHHUrGWM7TEH5ICPqJOQyRF2UOeJgZFJoQwC0 ZCXkQGPfROLcmw2TXRSgTEGvVMD5EpOjPLBbMLQjFTkxFZJvKOX0MdQ6EBZxUVKhSH7HIsJkJYJrTpBe UsLbTCMlERGubg2DEAIxLLZpExIcKLWzBJFeZADtZA qpLZIjHXQ4VofhOKKyKBMhRY6UGfUlFPXlBze0FxysYZPcRYMwps6AcHJvqJgnbu2BYLsRVa7GsSkjGN X0MWosOu6uzHOpYNErJWCQZx0XujLfIBPlMSBORLwfHUEePOPaGLN4PJTaIUCqKTT4RHMdOxe4GNS4Fx C6UKGgIOOaTtU6IVA1ENVlNLB6V3J7OfirAqEySPyg EGetUNZ0ABF7HOE+EN9dFHl+Tr4Zc8GoabH4lpEpSZkpLJT9Wb3GIWGON1KHPu== ID Date Data Source [id number] 08/07/2020 10:58:55 AM EDT [facility] Name Value Range Interpretation Code Description Data Edepa rce(s) Supporting Document(s) Progress Note [facility] KBFFLy9aFeSDDfFb00/MSRmcQHEzb4XlYNyuCXn5HBvoBSVeY3RcWGP0qO6dJQZ2NWmTYfDuBiWcZYCd lbm [file] FLOR/q4JhsOVYKW0fsIGcZ0262X7IYDC7rLDzpO6lzgv EhmqPPWfBGJmNqrZsvDHGKsJF723o6jcmU7OfDHgmOS48tlTtG2zxonHUcP/HWeQ0Y6rpiy7uwjYEov2 fZbfsIVBAicHkqosA32mrEXHI1aVhvu25Ad/uYfWGniwEk2PQWjIfSxAn56Z04ezG38p8v9hGRa4UZyY P1FmizCHQZ0/vp [employer]+tVaY1y0LM+tnbWYZO+98znxdox9 [file] Ot/Graham+QAk2+5hvS/MvYl7717H5z+UsUM7FegK6ky3MjCrC7LdVAvQH2sCype5qGcATKctOCSPNEf9E5 bO5FQHPsTl3k+z4+tmLTHNuK2JUivErhU7Q/UOLRWziQJaOpMbZ/sCf0yxyx4sHPE7ZHKXGRAUeJ500V PhfI5XcfWPJvpkHPWXkiUPqNdEoTatDpgxxCro6hiv fkAv8j0Ihl9oOjN8WbXOJnP4LiVMxsCIz4CxtpX2PpyGY5E0vSCRq54JU7mnOu9UoSALLiWEp+lgyleb a5uXl/hgDfBW3gMxyXfmg/JACEY7mmE8awd51OEyoX8Hsmiu8c0gtbk98shnQ/xaa5myvGp9/BOjnsFL pcgMDcmhBACOBE6stYk5vYDkDBnKBRW2O4iZ6wSRCA q4S4S4lhZeY0zWHVUUqZKrlpQLWPB7XmhbgVnkSi+J7LdHZ4iv/ttOSOuYkMie7nqE0pJoGM3pfYHf4I ruHa9MA+Ct9xIOV+WCHlvBVlKf8Ms+F4rL0vM9U94KhhuDttDhTnsMbzUf8htl7DWfm+nmSrpUXQZLuB 7K5EAazqqpnDwMs8E6RI3wSqQgKAx9U0S4hTceX2sd Xc9WqxBBaeQuaZy83WIXhYcvx3gZb4IM20IeUQOV1eyRh/wsMz4FsAjvB5KmNos8m6qs9qrj8jN/Carlos A [file] TGYfKHNoRvyqEoAgBAt9Bz4nTLHDFt4+OTurrFMslJeqOTHOGiR8YXShZWnbIJKWNa3M ID Date Data Source [id number] 08/07/2020 11:43:35 AM EDT [facility] Name Value Range Interpretation Code Description Data Deepa e(s) Supporting Document(s) Leukocytes [#/volume] in Blood by Automated count 7.6 10*3/uL 4-10 [facility] Erythrocytes [#/volume] in Blood by Automated count 4.85 10*6/uL 4.1- 5.3 [facility] Hemoglobin [Mass/volume] in Blood 12.0 g/dL 11.5-15.5 [facility] Hematocrit [Volume Fraction] of Blood by Automated count 38.2 % 3 6-45 [facility] Erythrocyte mean corpuscular volume [Entitic volume] by Auto mated count 78.8 fL 80-96 L [facility] Erythrocyte mean corpuscular hemoglobin [Entitic mass] by Automated count 24.8 pg 27-33 L [facility] Erythrocyte mean corpuscular hemoglobin concentration [Mass/volume] by Automated count 31.5 g/dL 32.0-36.0 [facility] [facility] Erythrocyte distribution width [Ratio] by Automated count 15.9 % 11.5-14.5 H [facility] Platelets [#/volume] in Blood by Automated count 453 10*3/uL 150-400 H [facility] Differential cell count method - Blood [facility] Neutrophils/100 leukocytes in Blood by Automated count 74 % [facility] Lymphocytes/100 leukocytes in Blood by Automated count 15 % [facility] Monocytes/100 leukocytes in Blood by Automated count 8 % [facility] Eosinophils/100 leukocytes in Blood by Automated count 2 % [facility] Basophils/100 leukocytes in Blood by Automated count 1 % [facility] Neutrophils [#/volume] in Blood by Automated count 5.66 10*3/uL 1.8-7 .0 [facility] Lymphocytes [#/volume] in Blood by Automated count 1.11 10*3/uL 1.2-4 .0 L [facility] Monocytes [#/volume] in Blood by Automated count 0.64 10*3/uL 0-0.8 [facility] Division Eosinophils [#/volume] in Blood by Automated count 0.13 10*3/uL 0-0.5 [facility] Basophils [#/volume] in Blood by Automated count 0.06 10*3/uL 0-0.2 [facility] Nucleated erythrocytes/100 leukocytes [Ratio] in Blood by Automated count 0 /100{WBCs} 0-0 [facility] ID Date Data Source [id number] 08/07/2020 11:57:34 AM [facility] Value Range Interpretation Code Description Data Deepa rce(s) Supporting Document(s) aPTT in Platelet poor plasma by Coagulation assay 27.9 s 24.0-33. 0 [facility] ID Date Data Source [id number] 08/07/2020 11:57:34 AM [facility] Value Range Interpretation Code Description Data Deepa rce(s) Supporting Document(s) Prothrombin time (PT) 13.4 s 12.5-14.9 [facility] INR in Platelet poor plasma by Coagulation assay 1.01 [facility] Routine intensity oral anticoagulation I NR is typically 2.0-3.0. Target INR must be clinically individualized. ID Date Data Source [id number] 08/07/2020 12:08:48 PM [facility] Value Range Interpretation Code Description Data Deepa rce(s) Supporting Document(s) Albumin [Mass/volume] in Serum or Plasma by Bromocresol green (BCG) dye binding method 3.4 g/dL 3.5-5.2 L [facility] [place] [facility] Bilirubin.total [Mass/volume] in Serum or Plasma 0.5 mg/dL <1.2 [facility] Calcium [Mass/volume] in Serum or Plasma 10.7 mg/dL 8.8-10.2 H [facility] Chloride [Moles/volume] in Serum or Plasma 99 mmol/L 98-107 [facility] Creatinine [Mass/volume] in Serum or Plasma 0.75 mg/dL 0.50-0.90 [facility] Glucose [Mass/volume] in Serum or Plasma 102 mg/dL 70-140 [facility] Alkaline phosphatase [Enzymatic activity/volume] in Serum or Plasma 97 U/L 35-104 [facility] Potassium [Moles/volume] in Serum or Plasma 4.7 mmol/L 3.4-5.1 [facility] Protein [Mass/volume] in Serum or Plasma 8.0 g/dL 6.4-8.3 [facility] Sodium [Moles/volume] in Serum or Plasma 133 mmol/L 136-145 L [facility] Aspartate aminotransferase [Enzymatic activity/volume] in Serum or Plasma 16 U/L <32 [facility] Urea nitrogen [Mass/volume] in Serum or Plasma 13 mg/dL 8-23 [facility] Osmolality of Serum or Plasma by calculation 276 mosm/kg 275-300 [facility] Creatinine/Urea nitrogen [Mass Ratio] in Serum or Plasma 17 [facility] Bicarbonate [Moles/volume] in Serum 25 mmol/L 22-29 [facility] Alanine aminotransferase [Enzymatic activity/volume] in Seru m or Plasma 7 U/L <33 [facility] Anion gap 3 in Serum or Plasma 9 mmol/L 8-15 [facility] Glomerular filtration rate/1.73 sq M pre dicted among non-blacks [Volume Rate/Area] in Serum or Plasma by Creatinine-based formula (MDRD) 87 mL/min/1.73m2 >60 [facility] Glomerular filtration rate/1.73 sq M pre dicted among blacks [Volume Rate/Area] in Serum or Plasma by Creatinine-based formula (MDRD) >60 [facility] ID Date Data Source [id number] 08/07/2020 05:02:07 PM EDT [facility] Name Value Range Interpretation Code Description Data Deepa rce(s) Supporting Document(s) Cancer Ag 125 [Units/volume] in Serum or Plasma 1071 U/mL <38 H [facility] The CA 125 assay should not be used as a screening test to detect Cancer. Its use as an aid in the management of Ovarian Cancer has been reported. CA125 values obtained using different methodologies cannot be used interchangeably. This method is manufactured by [employer] and is an electrochemiluminesence immunoassay. ID Date Data Source [id number] 07/23/2020 04:00:00 PM EDT [facility] Name Value Range Interpretation Code Description Data Deepa rce(s) Supporting Document(s) Follow Up [facility] OASHPf9jYiOHUwNvOQFjMegKMBctVZniGYChC9A3GYjlFh0DDXdxgvRyFIKwNv0+FHRnZT6abt1zVXBi gMy [file] U+qYOr6V0G+[place]/bSyGbU2/Pj2TS/v7zc8XOuMFnwptPdmc4l8qb276JxaG2zOo4GZn9Awc8+GtjAoC [file] SkwXr6GB76XxWb/ucGxG1Q8nCtH2YO6zu3EoLnsrFaIORdAQ2BaqW/pNOw6yrU4xPAMpPTVWxeE+G/inpatient auditor [file] WuDxZ4GHCQp6eL8G3OPc95x1QvINzXqndt1a8KaTrTeiud2P+LKrI9Ev7eiYcjfBCwFSqN/PATIENT SITTER/8yxunO [file] 4UTbXvhpKS6x1j+ILu1yJ+Lvqy9Rc0LyEi5rK8GxSb3BWDIIac8UIzl44VouaJMjmSxSJG+CATERPILLAR MECHANIC+aO2Af0 [file] gvL8QfjrTlpbVnktjG5TcO0GOVsxhvxO9a/Adam/16CluQqEy/DlQ27rbzHfm0qmVM61K8nZVylgp58pHQ UWdRDGAfDBZQtCoHkVOf90cKjUNJWianhV5eOMCd1u xQT8bPz+xUuukh+CLWubkfL/YhSM+95gEcoxepfCMx3b92vbDs+mRE+xYMM1L2SYk9Yp0Nu3vxfPuxql 4fL5O2DDWvV+H1rRKGKyU8Rsv2S3Kd51QHzWoWuaESdOd+/Wxq4EiYhmglA1MrLPRocAMzYLpDZIzHGT r2AmSGkn778o+QjRo2wjmpByib+PmDyfpwwAtmh+vp celebrity services [file] uPvT+KO+hSQyaKDly/cnc programmer+cePHcZ5wX+2PP7XS9F/b9a04yLXLa2Ey38Bu0wKHRQGqs0tZpzM6101zQf [file] CATERPILLAR MECHANIC+Cd1BGC/gAcZsldT9d/l9a7lY2STdwaVuDBiIXe0F+hq0u8756wQn828iL/dUkKdFvYZm4BUWsnbxx [file] dhxmqhr15Y+m+laborer pipeline+td6U9ttUrnpQM38reHOvhb+0R [file] KP95HWaHIpXkNMT8uvHzpX1WIG4yc1XuQN2Rt5FjltE5dfDqGZj1CRKxEGLULnDxWO5M ID Date Data Source [id number] 07/23/2020 09:54:00 AM EDT [facility] [address] [place] [address] PHONE: [phone] FAX: [phone] Name .................. : JOSE R DAVIDPEDRO Alvarez Acct Number.................. : [id number] ROOM. ................. : Number ................... : [id number] Stay type ............. : O/P Discharge Date......... ... : 07/22/20 Admit Date ......... : 07/22/20 Admit Phys .................... : WILTON Sandoval Date of ....... : 1955 Family Phys ................... : WILTON Sandoval Phone .................. : [phone] Age ................................ : 64 Film# .................. .:[id number] Sex ................................. : F Unsigned transcriptions are preliminary reports and do not represent a medical or legal document CT ABD & PELV W/ORAL/IV CONTR [id number] COMPLETE:07/22/20 10:13 [facility] [id number] (REASON FOR ABDOMEN: ABD PAIN AND DISTENSION CT OF THE ABDOMEN AND PELVIS WITH CONTRAST: COMPARISON: None. FINDINGS: Extensive omental and mesenteric masses are seen consistent with widespread metastatic disease. Large mesenteric masses are seen in the right upper quadrant adjacent to the right lobe of the liver measuring 7.8 x 7.2 cm and 8.8 x 3.5 cm. along the floor of the pelvis conglomeration of soft tissue masses with maximal AP diameter of 8.1 cm and maximal transverse diameter of 7.9 cm seen. Retroperitoneal lymph nodes are noted with the largest retroperitoneal lymph node left of the abdominal aorta with maximal diameter of 3.1 x 2.6 cm. There is a large amount of ascites. In the right lobe of the liver, a cystic focus measuring 1.1 cm maximal diameter is seen. The liver is otherwise unremarkable. The spleen, pancreas, adrenal glands and kidneys are unremarkable. A tiny gallstone is seen without additional evidence of acute cholecystectomy. Acute bowel pathology is not identified. The appendix is not seen, however evidence of appendicitis is not appreciated. The patient is status post hysterectomy. There is no acute osseous abnormality. A small layering left pleural effusion is present. Right pleural effusion is not noted. There are opacities at the lung bases consistent with compressive atelectasis. IMPRESSION: Extensive omental, mesenteric and retroperitoneal masses most consistent with metastatic disease. Status post hysterectomy. A large amount of ascites. Layering left pleural effusion. Mild bibasilar compressive atelectasis. There is a 1.1 cm cyst in the right lobe of the liver. Page 1 of 2 [place] [address] PHONE: [phone] FAX: [phone] Name .................. : JOSE R BUNCH Kim Acct Number.................. : [id number] ROOM. ................. : MR Number ................... : [id number] Stay type ............. : O/P Discharge Date......... ... : 07/22/20 Admit Date ......... : 07/22/20 Admit Phys .................... : WILTON Sandoval Date of ....... : 1955 Family Phys ................... : WILTON Sandoval Phone .................. : [phone] Age ................................ : 64 Film# .................. .:[id number] Sex ................................. : F Unsigned transcriptions are preliminary reports and do not represent a medical or legal document CT ABD & PELV W/ORAL/IV CONTR [id number] COMPLETE:07/22/20 10:13 [facility] 6447 (REASON FOR ABDOMEN: ABD PAIN AND DISTENSION While performing the above CT examination, radiation dose reduction was accomplished utilizing automated exposure control, adjusting of the mA and kV based on the patient's body size and/or the use of imperative reconstructive techniques. CT dose: 864.3 mGycm Contrast agent in mL: 75 Isovue 370 Method of administration: Intravenous Electronically Reviewed and Signed By Ivette Jefferson MD , 07/23/20 09:54, KGG Transcribe Initials: JEAN-CLAUDE , Transcribe Date: 07/22/20 18:08, Dictation Date: Copy for: WILTON AGEE via fax Copy for: Doist [facility] Page 2 of 2 Name Value Range Interpretation Code Description Data Deepa rce(s) Supporting Document(s) ID Date Data Source [id number] 07/22/2020 02:44:00 PM EDT [facility] ([facility] Name Value Range Interpretation Code Description Data Deepa rce(s) Supporting Document(s) Cea 0.6 ng/mL 0.0-4.7 [facility] ([facility] <content>Nonsmokers <3.9</felicia nt>
<content>Smokers <5.6</content>
<content>[employer] Electrochemiluminescence Immunoassay</content>
<content>(ECLIA)</content>
<content>Values obtained with different assay methods or kits</content>
<content>cannot be used interchangeably. Results cannot be</content>
<content>interpreted as absolute evidence of the presence or</content>
<content>absence of malignant disease.</content>
<content></content> Cancer Ag 125 [Units/volume] in Serum or Plasma 1062.0 U/mL 0.0-38.1 Above high normal [facility] ([facility] [employer] Electrochemiluminescen ce Immunoassay (ECLIA) Values obtained with different assay methods or kits cannot be used interchangeably. Results cannot be interpreted as absolute evidence of the presence or absence of malignant disease. Ylgqn-5-Nflrxfuncdj [Mass/volume] in Serum or Plasma 2.7 ng/mL 0.0-8 .3 [facility] ([facility] [employer] Electrochemiluminescen ce Immunoassay (ECLIA) Values obtained with different assay methods or kits cannot be used interchangeably. Results cannot be interpreted as absolute evidence of the presence or absence of malignant disease. This test is not interpretable in females. ID Date Data Source [id number] 07/22/2020 02:44:00 PM EDT [facility] Name Value Range Interpretation Code Description Data Deepa rce(s) Supporting Document(s) Laboratory test finding (navigational concept) 7 U/mL 0-35 [facility] ([facility] [employer] Electrochemiluminescen ce Immunoassay (ECLIA) Values obtained with different assay methods or kits cannot be used interchangeably. Results cannot be interpreted as absolute evidence of the presence or absence of malignant disease. PDF Laboratory test result [facility] ([facility] ID Date Data Source [id number] 07/09/2020 09:29:00 AM EST [facility] ([facility] Name Value Range Interpretation Code Description Data Deepa rce(s) Supporting Document(s) Creat 0.7 mg/dL 0.5-1.0 [facility] ([facility] CHRONIC KIDNEY DISEASE STAGING PER NKF: MALE GFR INTERPRETATION: 20-49 YRS: >60 mL/min Normal 50-59 YRS: >56 mL/min Normal 60-69 YRS: >49 mL/min Normal 70-79 YRS: >42 mL/min Normal 80 and above >35 mL/min Normal FEMALE GRF INTERPRETATION: 20-39 YRS: >60 mL/min Normal 40-49 YRS: >58 mL/min Normal 50-59 YRS: >51 mL/min Normal 60-69 YRS: >45 mL/min Normal 70-79 YRS: >39 mL/min Normal 80 and above >32 mL/min Normal BUN 7 mg/dL 8-23 Below low normal [facility] ([facility] CHRONIC KIDNEY DISEASE STAGING PER NKF: MALE GFR INTERPRETATION: 20-49 YRS: >60 mL/min Normal 50-59 YRS: >56 mL/min Normal 60-69 YRS: >49 mL/min Normal 70-79 YRS: >42 mL/min Normal 80 and above >35 mL/min Normal FEMALE GRF INTERPRETATION: 20-39 YRS: >60 mL/min Normal 40-49 YRS: >58 mL/min Normal 50-59 YRS: >51 mL/min Normal 60-69 YRS: >45 mL/min Normal 70-79 YRS: >39 mL/min Normal 80 and above >32 mL/min Normal Glu 89 mg/dL 70-110 [facility] ([facility] CHRONIC KIDNEY DISEASE STAGING PER NKF: MALE GFR INTERPRETATION: 20-49 YRS: >60 mL/min Normal 50-59 YRS: >56 mL/min Normal 60-69 YRS: >49 mL/min Normal 70-79 YRS: >42 mL/min Normal 80 and above >35 mL/min Normal FEMALE GRF INTERPRETATION: 20-39 YRS: >60 mL/min Normal 40-49 YRS: >58 mL/min Normal 50-59 YRS: >51 mL/min Normal 60-69 YRS: >45 mL/min Normal 70-79 YRS: >39 mL/min Normal 80 and above >32 mL/min Normal Na 135 mmol/L 136-145 Below low normal [facility] ( [facility] CHRONIC KIDNEY DISEASE STAGING PER NKF: MALE GFR INTERPRETATION: 20-49 YRS: >60 mL/min Normal 50-59 YRS: >56 mL/min Normal 60-69 YRS: >49 mL/min Normal 70-79 YRS: >42 mL/min Normal 80 and above >35 mL/min Normal FEMALE GRF INTERPRETATION: 20-39 YRS: >60 mL/min Normal 40-49 YRS: >58 mL/min Normal 50-59 YRS: >51 mL/min Normal 60-69 YRS: >45 mL/min Normal 70-79 YRS: >39 mL/min Normal 80 and above >32 mL/min Normal K 4.5 mmol/L 3.5-5.1 [facility] ([facility] CHRONIC KIDNEY DISEASE STAGING PER NKF: MALE GFR INTERPRETATION: 20-49 YRS: >60 mL/min Normal 50-59 YRS: >56 mL/min Normal 60-69 YRS: >49 mL/min Normal 70-79 YRS: >42 mL/min Normal 80 and above >35 mL/min Normal FEMALE GRF INTERPRETATION: 20-39 YRS: >60 mL/min Normal 40-49 YRS: >58 mL/min Normal 50-59 YRS: >51 mL/min Normal 60-69 YRS: >45 mL/min Normal 70-79 YRS: >39 mL/min Normal 80 and above >32 mL/min Normal BUN/Creatinine Ratio 9.6 Calc [facility] ([facility] CHRONIC KIDNEY DISEASE STAGING PER NKF: MALE GFR INTERPRETATION: 20-49 YRS: >60 mL/min Normal 50-59 YRS: >56 mL/min Normal 60-69 YRS: >49 mL/min Normal 70-79 YRS: >42 mL/min Normal 80 and above >35 mL/min Normal FEMALE GRF INTERPRETATION: 20-39 YRS: >60 mL/min Normal 40-49 YRS: >58 mL/min Normal 50-59 YRS: >51 mL/min Normal 60-69 YRS: >45 mL/min Normal 70-79 YRS: >39 mL/min Normal 80 and above >32 mL/min Normal CA 10.5 mg/dL 8.6-10.2 Above high normal [facility] ([facility] CHRONIC KIDNEY DISEASE STAGING PER NKF: MALE GFR INTERPRETATION: 20-49 YRS: >60 mL/min Normal 50-59 YRS: >56 mL/min Normal 60-69 YRS: >49 mL/min Normal 70-79 YRS: >42 mL/min Normal 80 and above >35 mL/min Normal FEMALE GRF INTERPRETATION: 20-39 YRS: >60 mL/min Normal 40-49 YRS: >58 mL/min Normal 50-59 YRS: >51 mL/min Normal 60-69 YRS: >45 mL/min Normal 70-79 YRS: >39 mL/min Normal 80 and above >32 mL/min Normal Co2 25.5 mmol/L 22.0-29.0 [facility] ([facility] CHRONIC KIDNEY DISEASE STAGING PER NKF: MALE GFR INTERPRETATION: 20-49 YRS: >60 mL/min Normal 50-59 YRS: >56 mL/min Normal 60-69 YRS: >49 mL/min Normal 70-79 YRS: >42 mL/min Normal 80 and above >35 mL/min Normal FEMALE GRF INTERPRETATION: 20-39 YRS: >60 mL/min Normal 40-49 YRS: >58 mL/min Normal 50-59 YRS: >51 mL/min Normal 60-69 YRS: >45 mL/min Normal 70-79 YRS: >39 mL/min Normal 80 and above >32 mL/min Normal CL 100.4 mmol/L 98.0-107.0 [facility] ([facility] CHRONIC KIDNEY DISEASE STAGING PER NKF: MALE GFR INTERPRETATION: 20-49 YRS: >60 mL/min Normal 50-59 YRS: >56 mL/min Normal 60-69 YRS: >49 mL/min Normal 70-79 YRS: >42 mL/min Normal 80 and above >35 mL/min Normal FEMALE GRF INTERPRETATION: 20-39 YRS: >60 mL/min Normal 40-49 YRS: >58 mL/min Normal 50-59 YRS: >51 mL/min Normal 60-69 YRS: >45 mL/min Normal 70-79 YRS: >39 mL/min Normal 80 and above >32 mL/min Normal Alb 3.2 g/dL 3.4-4.8 Below low normal [facility] ( [facility] CHRONIC KIDNEY DISEASE STAGING PER NKF: MALE GFR INTERPRETATION: 20-49 YRS: >60 mL/min Normal 50-59 YRS: >56 mL/min Normal 60-69 YRS: >49 mL/min Normal 70-79 YRS: >42 mL/min Normal 80 and above >35 mL/min Normal FEMALE GRF INTERPRETATION: 20-39 YRS: >60 mL/min Normal 40-49 YRS: >58 mL/min Normal 50-59 YRS: >51 mL/min Normal 60-69 YRS: >45 mL/min Normal 70-79 YRS: >39 mL/min Normal 80 and above >32 mL/min Normal TP 7.3 g/dL 6.6-8.7 [facility] ([facility] CHRONIC KIDNEY DISEASE STAGING PER NKF: MALE GFR INTERPRETATION: 20-49 YRS: >60 mL/min Normal 50-59 YRS: >56 mL/min Normal 60-69 YRS: >49 mL/min Normal 70-79 YRS: >42 mL/min Normal 80 and above >35 mL/min Normal FEMALE GRF INTERPRETATION: 20-39 YRS: >60 mL/min Normal 40-49 YRS: >58 mL/min Normal 50-59 YRS: >51 mL/min Normal 60-69 YRS: >45 mL/min Normal 70-79 YRS: >39 mL/min Normal 80 and above >32 mL/min Normal Globulin 4.1 Calc [facility] ([facility] CHRONIC KIDNEY DISEASE STAGING PER NKF: MALE GFR INTERPRETATION: 20-49 YRS: >60 mL/min Normal 50-59 YRS: >56 mL/min Normal 60-69 YRS: >49 mL/min Normal 70-79 YRS: >42 mL/min Normal 80 and above >35 mL/min Normal FEMALE GRF INTERPRETATION: 20-39 YRS: >60 mL/min Normal 40-49 YRS: >58 mL/min Normal 50-59 YRS: >51 mL/min Normal 60-69 YRS: >45 mL/min Normal 70-79 YRS: >39 mL/min Normal 80 and above >32 mL/min Normal Alp 99.2 U/L 35-129 [facility] CHRONIC KIDNEY DISEASE STAGING PER NKF: MALE GFR INTERPRETATION: 20-49 YRS: >60 mL/min Normal 50-59 YRS: >56 mL/min Normal 60-69 YRS: >49 mL/min Normal 70-79 YRS: >42 mL/min Normal 80 and above >35 mL/min Normal FEMALE GRF INTERPRETATION: 20-39 YRS: >60 mL/min Normal 40-49 YRS: >58 mL/min Normal 50-59 YRS: >51 mL/min Normal 60-69 YRS: >45 mL/min Normal 70-79 YRS: >39 mL/min Normal 80 and above >32 mL/min Normal A/G Ratio 0.8 Calc [facility] ([facility] CHRONIC KIDNEY DISEASE STAGING PER NKF: MALE GFR INTERPRETATION: 20-49 YRS: >60 mL/min Normal 50-59 YRS: >56 mL/min Normal 60-69 YRS: >49 mL/min Normal 70-79 YRS: >42 mL/min Normal 80 and above >35 mL/min Normal FEMALE GRF INTERPRETATION: 20-39 YRS: >60 mL/min Normal 40-49 YRS: >58 mL/min Normal 50-59 YRS: >51 mL/min Normal 60-69 YRS: >45 mL/min Normal 70-79 YRS: >39 mL/min Normal 80 and above >32 mL/min Normal Alt (SGPT) 9 U/L 0-41 [facility] ([facility] CHRONIC KIDNEY DISEASE STAGING PER NKF: MALE GFR INTERPRETATION: 20-49 YRS: >60 mL/min Normal 50-59 YRS: >56 mL/min Normal 60-69 YRS: >49 mL/min Normal 70-79 YRS: >42 mL/min Normal 80 and above >35 mL/min Normal FEMALE GRF INTERPRETATION: 20-39 YRS: >60 mL/min Normal 40-49 YRS: >58 mL/min Normal 50-59 YRS: >51 mL/min Normal 60-69 YRS: >45 mL/min Normal 70-79 YRS: >39 mL/min Normal 80 and above >32 mL/min Normal Tbili 0.72 mg/dL 0.0-1.2 [facility] ([facility] CHRONIC KIDNEY DISEASE STAGING PER NKF: MALE GFR INTERPRETATION: 20-49 YRS: >60 mL/min Normal 50-59 YRS: >56 mL/min Normal 60-69 YRS: >49 mL/min Normal 70-79 YRS: >42 mL/min Normal 80 and above >35 mL/min Normal FEMALE GRF INTERPRETATION: 20-39 YRS: >60 mL/min Normal 40-49 YRS: >58 mL/min Normal 50-59 YRS: >51 mL/min Normal 60-69 YRS: >45 mL/min Normal 70-79 YRS: >39 mL/min Normal 80 and above >32 mL/min Normal Ast (Sgot) 15 U/L 0-40 [facility] ([facility] CHRONIC KIDNEY DISEASE STAGING PER NKF: MALE GFR INTERPRETATION: 20-49 YRS: >60 mL/min Normal 50-59 YRS: >56 mL/min Normal 60-69 YRS: >49 mL/min Normal 70-79 YRS: >42 mL/min Normal 80 and above >35 mL/min Normal FEMALE GRF INTERPRETATION: 20-39 YRS: >60 mL/min Normal 40-49 YRS: >58 mL/min Normal 50-59 YRS: >51 mL/min Normal 60-69 YRS: >45 mL/min Normal 70-79 YRS: >39 mL/min Normal 80 and above >32 mL/min Normal eGFR 105 # [facility] ( [facility] CHRONIC KIDNEY DISEASE STAGING PER NKF: MALE GFR INTERPRETATION: 20-49 YRS: >60 mL/min Normal 50-59 YRS: >56 mL/min Normal 60-69 YRS: >49 mL/min Normal 70-79 YRS: >42 mL/min Normal 80 and above >35 mL/min Normal FEMALE GRF INTERPRETATION: 20-39 YRS: >60 mL/min Normal 40-49 YRS: >58 mL/min Normal 50-59 YRS: >51 mL/min Normal 60-69 YRS: >45 mL/min Normal 70-79 YRS: >39 mL/min Normal 80 and above >32 mL/min Normal Anion Gap 13 mmol/L [facility] ([facility] CHRONIC KIDNEY DISEASE STAGING PER NKF: MALE GFR INTERPRETATION: 20-49 YRS: >60 mL/min Normal 50-59 YRS: >56 mL/min Normal 60-69 YRS: >49 mL/min Normal 70-79 YRS: >42 mL/min Normal 80 and above >35 mL/min Normal FEMALE GRF INTERPRETATION: 20-39 YRS: >60 mL/min Normal 40-49 YRS: >58 mL/min Normal 50-59 YRS: >51 mL/min Normal 60-69 YRS: >45 mL/min Normal 70-79 YRS: >39 mL/min Normal 80 and above >32 mL/min Normal Osmolality-Calculated 266.7 Calc [facility] ([facility] CHRONIC KIDNEY DISEASE STAGING PER NKF: MALE GFR INTERPRETATION: 20-49 YRS: >60 mL/min Normal 50-59 YRS: >56 mL/min Normal 60-69 YRS: >49 mL/min Normal 70-79 YRS: >42 mL/min Normal 80 and above >35 mL/min Normal FEMALE GRF INTERPRETATION: 20-39 YRS: >60 mL/min Normal 40-49 YRS: >58 mL/min Normal 50-59 YRS: >51 mL/min Normal 60-69 YRS: >45 mL/min Normal 70-79 YRS: >39 mL/min Normal 80 and above >32 mL/min Normal eGFR Non-Afr. Uzbek 90 # [facility] ([facility] CHRONIC KIDNEY DISEASE STAGING PER NKF: MALE GFR INTERPRETATION: 20-49 YRS: >60 mL/min Normal 50-59 YRS: >56 mL/min Normal 60-69 YRS: >49 mL/min Normal 70-79 YRS: >42 mL/min Normal 80 and above >35 mL/min Normal FEMALE GRF INTERPRETATION: 20-39 YRS: >60 mL/min Normal 40-49 YRS: >58 mL/min Normal 50-59 YRS: >51 mL/min Normal 60-69 YRS: >45 mL/min Normal 70-79 YRS: >39 mL/min Normal 80 and above >32 mL/min Normal ID Date Data Source [id number] 07/09/2020 09:28:00 AM EST [facility] ([facility] Name Value Range Interpretation Code Description Data Deepa rce(s) Supporting Document(s) Thyrotropin [Units/volume] in Serum or Plasma 4.504 ulU/mL 0.60-4.8 [facility] ([facility] ID Date Data Source [id number] 07/09/2020 09:27:00 AM EST [facility] ([facility] Name Value Range Interpretation Code Description Data Deepa rce(s) Supporting Document(s) Calcium [Mass/volume] in Serum or Plasma 10.6 mg/dL 8.7-10.3 Above high normal [facility] ([facility] Intact PTH Laboratory test result [facility] ([facility] <content>Interpretation Intact PTH Calcium</content>
<content>(pg/mL) (mg/dL)</content>
<content>Normal 15 - 65 8.6 - 10.2</content>
<content>Primary Hyperparathyroidism >65 >10.2</content>
<content>Secondary Hyperparathyroidism >65 <10.2</content>
<content>Non-Parathyroid Hypercalcemia <65 > 10.2</content>
<content>Hypoparathyroidism <15 < 8.6</content>
<content>Non-Parathyroid Hypocalcemia 15 - 65 < 8.6</content>
<content></content> PTH, Intact 23 pg/mL 15-65 [facility] ([facility] ID Date Data Source [id number] 02:17:29 PM [facility] XXX-Imp : NoneMicroorganism XXX Cult : 20,000 col/mlProteus mirabilisATTENTION This species is always resistant to tetracyclines, nitrofurantoin, polymyxin B, and colistin. Name Value Range Interpretation Code Description Data Deepa rce(s) Supporting Document(s) ID Date Data Source [id number] 07/07/2020 03:00:53 PM [facility] Name Value Range Interpretation Code Description Data Deepa rce(s) Supporting Document(s) Color of Urine [facility] Clarity of Urine [facility] Specific gravity of Urine by Refractometry automated 1.025 1.003 -1.030 [facility] pH of Urine by Automated test strip 6.0 5.0-8.0 [facility] Protein [Mass/volume] in Urine by Automated test strip 100 mg/dL Neg [facility] Glucose [Mass/volume] in Urine by Automated test strip Neg [facility] Ketones [Mass/volume] in Urine by Automated test strip Neg [facility] Bilirubin.total [Presence] in Urine by Automated test strip Negative [facility] Hemoglobin [Presence] in Urine by Automated test [facility]ukocyte esterase [Presence] in Urine by Automated test strip Negative [facility] Nitrite [Presence] in Urine by Automated test strip Negati [facility] Leukocytes [#/area] in Urine sediment by Automated count 106 /HPF 0 -5 H [facility] Erythrocytes [#/area] in Urine sediment by Automated count 47 /HPF 0-3 H [facility] Bacteria [#/area] in Urine sediment by Automated count Non e [facility] Epithelial cells.squamous [#/area] in Urine sediment by Auto mated count 16 /HPF None [facility] Mucus [#/area] in Urine sediment by Microscopy low power field None [facility] ID Date Data Source [id number] 07/03/2020 04:25:43 PM EST [facility] Name Value Range Interpretation Code Description Data Deepa rce(s) Supporting Document(s) PTH, INTACT @ 53.8 pg/mL (18.5-88.0) [facility] ID Date Data Source [id number] 07/03/2020 12:22:05 PM EST [facility] Name Value Range Interpretation Code Description Data Deepa rce(s) Supporting Document(s) PHOSPHORUS 3.4 mg/dL (2.5-4.5) [facility] ID Date Data Source [id number] 07/03/2020 12:22:05 PM EST [facility] Name Value Range Interpretation Code Description Data Deepa rce(s) Supporting Document(s) SODIUM 140 mmol/L (136-145) [facility] POTASSIUM 4.9 mmol/L (3.6-5.2) [facility] CHLORIDE 100 mmol/L (100-108) [facility] CO2 31 mmol/L (22-31) [facility] ANION GAP 9 mmol/L (7-16) [facility] UREA NITROGEN 12 mg/dL (7-24) [facility] CREATININE 0.65 mg/dL (0.60-1.00) [facility] BUN/CREAT RATIO 18.5 RATIO (10.0-20.0) [facility] GLUCOSE 101 mg/dL (70-99) H [facility] CALCIUM 10.5 mg/dL (8.4-10.2) H [facility] GFR >60 ml/min/1.73m2 (>59) [facility] GFR ([facility]) >60 ml/min/1.73m2 (>59) [facility] GFR INTERPRETATION [facility] --NORMAL KIDNEY FUNCTION OR MILD DISEASE - GFR >OR= 60CHRONIC KIDNEY DISEASE - GFR 15 - 59RENAL FAILURE - GFR <15 Est. GFR calculation based on the MDRDstudy equation, which assumes a steadystate for creatinine. Est. GFR should notbe used for medication dosing. ID Date Data Source [id number] 07/03/2020 11:19:23 AM EST [facility] Name Value Range Interpretation Code Description Data Deepa rce(s) Supporting Document(s) CALCIUM IONIZED 5.92 mg/dL (4.64-5.28) H [facility] IONIZED CALCIUM NORMALIZED TO PH 7.40 AN D 37 DEGREES C. ID Date Data Source [id number] 06/26/2020 12:47:00 PM EST [facility] [address] [place] [address] PHONE: [phone] FAX: [phone] Name .................. : JOSE R Alvarez Acct Number.................. : [id number] ROOM. ................. : MR Number ................... : [id number] Stay type ............. : O/P Discharge Date......... ... : 06/25/20 Admit Date ......... : 06/25/20 Admit Phys .................... : WILTON Sandoval Date of ....... : 1955 Family Phys ................... : WILTON S Phone .................. : [phone] Age ................................ : 64 Film# .................. .:[id number] Sex ................................. : F Unsigned transcriptions are preliminary reports and do not represent a medical or legal document ABDOMEN MULTIPLE VIEW [id number] COMPLETE:06/25/20 14:34 [facility] 4618 (REASON FOR ABDOMEN: ABDOMINAL PAIN MULTIPLE VIEW ABDOMINAL SERIES WITH PA CHEST: COMPARISON: None available. FINDINGS: There is bibasilar subsegmental atelectasis and/or pleuroparenchymal scarring, right greater than left. In this setting, a right lower lobe infiltrate is not excluded. Correlate clinically. The heart is not enlarged. There is no hilar adenopathy. There is a nonobstructive bowel gas pattern with moderate retained feces. Areas of increased density are noted projecting over the left kidney, possibly related to ingested debris. Again, clinical correlation is advised as to the need for further evaluation and management which could include a CT scan. There are pelvic calcifications mostly on the left, likely related to vascular calcifications. If there is concern for ureteral calculi, again, CT scanning should be considered. Surgical clips project over the soft tissue of the left neck. IMPRESSION: Bibasilar subsegmental atelectasis and/or pleuroparenchymal scarring, right greater than left. Right lower lobe infiltrate not excluded. Retained feces without obstruction. Correlate clinically for need for further evaluation. Electronically Reviewed and Signed By Nadir Jeffrey MD , 06/26/20 12:47, AML Transcribe Initials: JEAN-CLAUDE , Transcribe Date: 06/25/20 18:26, Dictation Date: Copy for: WILTON AGEE via fax Copy for: [address] [facility] Page 1 of 1 Name Value Range Interpretation Code Description Data Deepa rce(s) Supporting Document(s) ID Date Data Source [id number] 06/25/2020 01:54:00 PM EST [facility] ([facility] Name Value Range Interpretation Code Description Data Deepa rce(s) Supporting Document(s) Thyrotropin [Units/volume] in Serum or Plasma 2.363 ulU/mL 0.60-4.8 [facility] ([facility] NORMAL RANGES Age WBC RBC HGB HCT MCV PLT Adult M 4.1-10.9 4.20-6.30 12.0-18.0 37.0-51.0 80-97 140-440 Adult F 4.1-10.9 4.04-5.48 12.0-18.0 37.0-51.0 80-97 140-440 0 -1 Yr 5.0-20.0 3.9-5.9 15-18 MV: 44 MV: 91 MV: 277 2-9 Yr. 6.0-17.0 3.8-5.4 11-13 MV: 37 MV: 78 MV: 300 10 Yrs. 5.0-13.0 3.8-5.4 12-15 MV: 39 MV: 80 MV: 250 NOTE: * FOR ADULT BLACK MALES AND FEMALES, NORMAL WBC IS 2.9-7.7 K/ML * FOR ADULT BLACK MALES AND FEMALES, NORMAL RBC,HGB, AND HCT IS 5% LESS SOURCE FOR DATA: [employer] 1800 OPERATION MANUAL( AUTOMATED BLOOD COUNTS AND DIFF.) APPENDIX B-3 CHRONIC KIDNEY DISEASE STAGING PER NKF: MALE GFR INTERPRETATION: 20-49 YRS: >60 mL/min Normal 50-59 YRS: >56 mL/min Normal 60-69 YRS: >49 mL/min Normal 70-79 YRS: >42 mL/min Normal 80 and above >35 mL/min Normal FEMALE GRF INTERPRETATION: 20-39 YRS: >60 mL/min Normal 40-49 YRS: >58 mL/min Normal 50-59 YRS: >51 mL/min Normal 60-69 YRS: >45 mL/min Normal 70-79 YRS: >39 mL/min Normal 80 and above >32 mL/min Normal ID Date Data Source [id number] 06/25/2020 01:54:00 PM [facility] ([facility] Name Value Range Interpretation Code Description Data Deepa rce(s) Supporting Document(s) RBC 4.24 10E6/uL 4.20-6.30 [facility] ([facility] NORMAL RANGES Age WBC RBC HGB HCT MCV PLT Adult M 4.1-10.9 4.20-6.30 12.0-18.0 37.0-51.0 80-97 140-440 Adult F 4.1-10.9 4.04-5.48 12.0-18.0 37.0-51.0 80-97 140-440 0 -1 Yr 5.0-20.0 3.9-5.9 15-18 MV: 44 MV: 91 MV: 277 2-9 Yr. 6.0-17.0 3.8-5.4 11-13 MV: 37 MV: 78 MV: 300 10 Yrs. 5.0-13.0 3.8-5.4 12-15 MV: 39 MV: 80 MV: 250 NOTE: * FOR ADULT BLACK MALES AND FEMALES, NORMAL WBC IS 2.9-7.7 K/ML * FOR ADULT BLACK MALES AND FEMALES, NORMAL RBC,HGB, AND HCT IS 5% LESS SOURCE FOR DATA: [employer] 1800 OPERATION MANUAL( AUTOMATED BLOOD COUNTS AND DIFF.) APPENDIX B-3 CHRONIC KIDNEY DISEASE STAGING PER NKF: MALE GFR INTERPRETATION: 20-49 YRS: >60 mL/min Normal 50-59 YRS: >56 mL/min Normal 60-69 YRS: >49 mL/min Normal 70-79 YRS: >42 mL/min Normal 80 and above >35 mL/min Normal FEMALE GRF INTERPRETATION: 20-39 YRS: >60 mL/min Normal 40-49 YRS: >58 mL/min Normal 50-59 YRS: >51 mL/min Normal 60-69 YRS: >45 mL/min Normal 70-79 YRS: >39 mL/min Normal 80 and above >32 mL/min Normal WBC 7.7 10E3/uL 4.1-10.9 [facility] NORMAL RANGES Age WBC RBC HGB HCT MCV PLT Adult M 4.1-10.9 4.20-6.30 12.0-18.0 37.0-51.0 80-97 140-440 Adult F 4.1-10.9 4.04-5.48 12.0-18.0 37.0-51.0 80-97 140-440 0 -1 Yr 5.0-20.0 3.9-5.9 15-18 MV: 44 MV: 91 MV: 277 2-9 Yr. 6.0-17.0 3.8-5.4 11-13 MV: 37 MV: 78 MV: 300 10 Yrs. 5.0-13.0 3.8-5.4 12-15 MV: 39 MV: 80 MV: 250 NOTE: * FOR ADULT BLACK MALES AND FEMALES, NORMAL WBC IS 2.9-7.7 K/ML * FOR ADULT BLACK MALES AND FEMALES, NORMAL RBC,HGB, AND HCT IS 5% LESS SOURCE FOR DATA: [employer] 1800 OPERATION MANUAL( AUTOMATED BLOOD COUNTS AND DIFF.) APPENDIX B-3 CHRONIC KIDNEY DISEASE STAGING PER NKF: MALE GFR INTERPRETATION: 20-49 YRS: >60 mL/min Normal 50-59 YRS: >56 mL/min Normal 60-69 YRS: >49 mL/min Normal 70-79 YRS: >42 mL/min Normal 80 and above >35 mL/min Normal FEMALE GRF INTERPRETATION: 20-39 YRS: >60 mL/min Normal 40-49 YRS: >58 mL/min Normal 50-59 YRS: >51 mL/min Normal 60-69 YRS: >45 mL/min Normal 70-79 YRS: >39 mL/min Normal 80 and above >32 mL/min Normal HCT 35.7 % 37.0-51.0 Below low normal [facility] ( [facility] NORMAL RANGES Age WBC RBC HGB HCT MCV PLT Adult M 4.1-10.9 4.20-6.30 12.0-18.0 37.0-51.0 80-97 140-440 Adult F 4.1-10.9 4.04-5.48 12.0-18.0 37.0-51.0 80-97 140-440 0 -1 Yr 5.0-20.0 3.9-5.9 15-18 MV: 44 MV: 91 MV: 277 2-9 Yr. 6.0-17.0 3.8-5.4 11-13 MV: 37 MV: 78 MV: 300 10 Yrs. 5.0-13.0 3.8-5.4 12-15 MV: 39 MV: 80 MV: 250 NOTE: * FOR ADULT BLACK MALES AND FEMALES, NORMAL WBC IS 2.9-7.7 K/ML * FOR ADULT BLACK MALES AND FEMALES, NORMAL RBC,HGB, AND HCT IS 5% LESS SOURCE FOR DATA: [employer] 1800 OPERATION MANUAL( AUTOMATED BLOOD COUNTS AND DIFF.) APPENDIX B-3 CHRONIC KIDNEY DISEASE STAGING PER NKF: MALE GFR INTERPRETATION: 20-49 YRS: >60 mL/min Normal 50-59 YRS: >56 mL/min Normal 60-69 YRS: >49 mL/min Normal 70-79 YRS: >42 mL/min Normal 80 and above >35 mL/min Normal FEMALE GRF INTERPRETATION: 20-39 YRS: >60 mL/min Normal 40-49 YRS: >58 mL/min Normal 50-59 YRS: >51 mL/min Normal 60-69 YRS: >45 mL/min Normal 70-79 YRS: >39 mL/min Normal 80 and above >32 mL/min Normal HGB 11.6 g/dL 12.0-18.0 Below low normal [facility] ( [facility] NORMAL RANGES Age WBC RBC HGB HCT MCV PLT Adult M 4.1-10.9 4.20-6.30 12.0-18.0 37.0-51.0 80-97 140-440 Adult F 4.1-10.9 4.04-5.48 12.0-18.0 37.0-51.0 80-97 140-440 0 -1 Yr 5.0-20.0 3.9-5.9 15-18 MV: 44 MV: 91 MV: 277 2-9 Yr. 6.0-17.0 3.8-5.4 11-13 MV: 37 MV: 78 MV: 300 10 Yrs. 5.0-13.0 3.8-5.4 12-15 MV: 39 MV: 80 MV: 250 NOTE: * FOR ADULT BLACK MALES AND FEMALES, NORMAL WBC IS 2.9-7.7 K/ML * FOR ADULT BLACK MALES AND FEMALES, NORMAL RBC,HGB, AND HCT IS 5% LESS SOURCE FOR DATA: [employer] 1800 OPERATION MANUAL( AUTOMATED BLOOD COUNTS AND DIFF.) APPENDIX B-3 CHRONIC KIDNEY DISEASE STAGING PER NKF: MALE GFR INTERPRETATION: 20-49 YRS: >60 mL/min Normal 50-59 YRS: >56 mL/min Normal 60-69 YRS: >49 mL/min Normal 70-79 YRS: >42 mL/min Normal 80 and above >35 mL/min Normal FEMALE GRF INTERPRETATION: 20-39 YRS: >60 mL/min Normal 40-49 YRS: >58 mL/min Normal 50-59 YRS: >51 mL/min Normal 60-69 YRS: >45 mL/min Normal 70-79 YRS: >39 mL/min Normal 80 and above >32 mL/min Normal MCV 84.2 fL 80.0-97.0 [facility] NORMAL RANGES Age WBC RBC HGB HCT MCV PLT Adult M 4.1-10.9 4.20-6.30 12.0-18.0 37.0-51.0 80-97 140-440 Adult F 4.1-10.9 4.04-5.48 12.0-18.0 37.0-51.0 80-97 140-440 0 -1 Yr 5.0-20.0 3.9-5.9 15-18 MV: 44 MV: 91 MV: 277 2-9 Yr. 6.0-17.0 3.8-5.4 11-13 MV: 37 MV: 78 MV: 300 10 Yrs. 5.0-13.0 3.8-5.4 12-15 MV: 39 MV: 80 MV: 250 NOTE: * FOR ADULT BLACK MALES AND FEMALES, NORMAL WBC IS 2.9-7.7 K/ML * FOR ADULT BLACK MALES AND FEMALES, NORMAL RBC,HGB, AND HCT IS 5% LESS SOURCE FOR DATA: [employer] 1800 OPERATION MANUAL( AUTOMATED BLOOD COUNTS AND DIFF.) APPENDIX B-3 CHRONIC KIDNEY DISEASE STAGING PER NKF: MALE GFR INTERPRETATION: 20-49 YRS: >60 mL/min Normal 50-59 YRS: >56 mL/min Normal 60-69 YRS: >49 mL/min Normal 70-79 YRS: >42 mL/min Normal 80 and above >35 mL/min Normal FEMALE GRF INTERPRETATION: 20-39 YRS: >60 mL/min Normal 40-49 YRS: >58 mL/min Normal 50-59 YRS: >51 mL/min Normal 60-69 YRS: >45 mL/min Normal 70-79 YRS: >39 mL/min Normal 80 and above >32 mL/min Normal MCH 27.4 pg 26.0-32.0 [facility] ([facility] NORMAL RANGES Age WBC RBC HGB HCT MCV PLT Adult M 4.1-10.9 4.20-6.30 12.0-18.0 37.0-51.0 80-97 140-440 Adult F 4.1-10.9 4.04-5.48 12.0-18.0 37.0-51.0 80-97 140-440 0 -1 Yr 5.0-20.0 3.9-5.9 15-18 MV: 44 MV: 91 MV: 277 2-9 Yr. 6.0-17.0 3.8-5.4 11-13 MV: 37 MV: 78 MV: 300 10 Yrs. 5.0-13.0 3.8-5.4 12-15 MV: 39 MV: 80 MV: 250 NOTE: * FOR ADULT BLACK MALES AND FEMALES, NORMAL WBC IS 2.9-7.7 K/ML * FOR ADULT BLACK MALES AND FEMALES, NORMAL RBC,HGB, AND HCT IS 5% LESS SOURCE FOR DATA: [employer] 1800 OPERATION MANUAL( AUTOMATED BLOOD COUNTS AND DIFF.) APPENDIX B-3 CHRONIC KIDNEY DISEASE STAGING PER NKF: MALE GFR INTERPRETATION: 20-49 YRS: >60 mL/min Normal 50-59 YRS: >56 mL/min Normal 60-69 YRS: >49 mL/min Normal 70-79 YRS: >42 mL/min Normal 80 and above >35 mL/min Normal FEMALE GRF INTERPRETATION: 20-39 YRS: >60 mL/min Normal 40-49 YRS: >58 mL/min Normal 50-59 YRS: >51 mL/min Normal 60-69 YRS: >45 mL/min Normal 70-79 YRS: >39 mL/min Normal 80 and above >32 mL/min Normal MCHC 32.5 g/dL 31.0-36.0 [facility] ([facility] NORMAL RANGES Age WBC RBC HGB HCT MCV PLT Adult M 4.1-10.9 4.20-6.30 12.0-18.0 37.0-51.0 80-97 140-440 Adult F 4.1-10.9 4.04-5.48 12.0-18.0 37.0-51.0 80-97 140-440 0 -1 Yr 5.0-20.0 3.9-5.9 15-18 MV: 44 MV: 91 MV: 277 2-9 Yr. 6.0-17.0 3.8-5.4 11-13 MV: 37 MV: 78 MV: 300 10 Yrs. 5.0-13.0 3.8-5.4 12-15 MV: 39 MV: 80 MV: 250 NOTE: * FOR ADULT BLACK MALES AND FEMALES, NORMAL WBC IS 2.9-7.7 K/ML * FOR ADULT BLACK MALES AND FEMALES, NORMAL RBC,HGB, AND HCT IS 5% LESS SOURCE FOR DATA: [employer] 1800 OPERATION MANUAL( AUTOMATED BLOOD COUNTS AND DIFF.) APPENDIX B-3 CHRONIC KIDNEY DISEASE STAGING PER NKF: MALE GFR INTERPRETATION: 20-49 YRS: >60 mL/min Normal 50-59 YRS: >56 mL/min Normal 60-69 YRS: >49 mL/min Normal 70-79 YRS: >42 mL/min Normal 80 and above >35 mL/min Normal FEMALE GRF INTERPRETATION: 20-39 YRS: >60 mL/min Normal 40-49 YRS: >58 mL/min Normal 50-59 YRS: >51 mL/min Normal 60-69 YRS: >45 mL/min Normal 70-79 YRS: >39 mL/min Normal 80 and above >32 mL/min Normal PLT 542 10E3/uL 140-440 Above high normal [facility] ([facility] NORMAL RANGES Age WBC RBC HGB HCT MCV PLT Adult M 4.1-10.9 4.20-6.30 12.0-18.0 37.0-51.0 80-97 140-440 Adult F 4.1-10.9 4.04-5.48 12.0-18.0 37.0-51.0 80-97 140-440 0 -1 Yr 5.0-20.0 3.9-5.9 15-18 MV: 44 MV: 91 MV: 277 2-9 Yr. 6.0-17.0 3.8-5.4 11-13 MV: 37 MV: 78 MV: 300 10 Yrs. 5.0-13.0 3.8-5.4 12-15 MV: 39 MV: 80 MV: 250 NOTE: * FOR ADULT BLACK MALES AND FEMALES, NORMAL WBC IS 2.9-7.7 K/ML * FOR ADULT BLACK MALES AND FEMALES, NORMAL RBC,HGB, AND HCT IS 5% LESS SOURCE FOR DATA: [employer] 1800 OPERATION MANUAL( AUTOMATED BLOOD COUNTS AND DIFF.) APPENDIX B-3 CHRONIC KIDNEY DISEASE STAGING PER NKF: MALE GFR INTERPRETATION: 20-49 YRS: >60 mL/min Normal 50-59 YRS: >56 mL/min Normal 60-69 YRS: >49 mL/min Normal 70-79 YRS: >42 mL/min Normal 80 and above >35 mL/min Normal FEMALE GRF INTERPRETATION: 20-39 YRS: >60 mL/min Normal 40-49 YRS: >58 mL/min Normal 50-59 YRS: >51 mL/min Normal 60-69 YRS: >45 mL/min Normal 70-79 YRS: >39 mL/min Normal 80 and above >32 mL/min Normal Lym% 8.5 % 10.0-58.5 Below low normal [facility] ( [facility] NORMAL RANGES Age WBC RBC HGB HCT MCV PLT Adult M 4.1-10.9 4.20-6.30 12.0-18.0 37.0-51.0 80-97 140-440 Adult F 4.1-10.9 4.04-5.48 12.0-18.0 37.0-51.0 80-97 140-440 0 -1 Yr 5.0-20.0 3.9-5.9 15-18 MV: 44 MV: 91 MV: 277 2-9 Yr. 6.0-17.0 3.8-5.4 11-13 MV: 37 MV: 78 MV: 300 10 Yrs. 5.0-13.0 3.8-5.4 12-15 MV: 39 MV: 80 MV: 250 NOTE: * FOR ADULT BLACK MALES AND FEMALES, NORMAL WBC IS 2.9-7.7 K/ML * FOR ADULT BLACK MALES AND FEMALES, NORMAL RBC,HGB, AND HCT IS 5% LESS SOURCE FOR DATA: [employer] 1800 [employer]PERATION MANUAL( AUTOMATED BLOOD COUNTS AND DIFF.) APPENDIX B-3 CHRONIC KIDNEY DISEASE STAGING PER NKF: MALE GFR INTERPRETATION: 20-49 YRS: >60 mL/min Normal 50-59 YRS: >56 mL/min Normal 60-69 YRS: >49 mL/min Normal 70-79 YRS: >42 mL/min Normal 80 and above >35 mL/min Normal FEMALE GRF INTERPRETATION: 20-39 YRS: >60 mL/min Normal 40-49 YRS: >58 mL/min Normal 50-59 YRS: >51 mL/min Normal 60-69 YRS: >45 mL/min Normal 70-79 YRS: >39 mL/min Normal 80 and above >32 mL/min Normal Neut% 79.7 % 37.0-92.0 [facility] NORMAL RANGES Age WBC RBC HGB HCT MCV PLT Adult M 4.1-10.9 4.20-6.30 12.0-18.0 37.0-51.0 80-97 140-440 Adult F 4.1-10.9 4.04-5.48 12.0-18.0 37.0-51.0 80-97 140-440 0 -1 Yr 5.0-20.0 3.9-5.9 15-18 MV: 44 MV: 91 MV: 277 2-9 Yr. 6.0-17.0 3.8-5.4 11-13 MV: 37 MV: 78 MV: 300 10 Yrs. 5.0-13.0 3.8-5.4 12-15 MV: 39 MV: 80 MV: 250 NOTE: * FOR ADULT BLACK MALES AND FEMALES, NORMAL WBC IS 2.9-7.7 K/ML * FOR ADULT BLACK MALES AND FEMALES, NORMAL RBC,HGB, AND HCT IS 5% LESS SOURCE FOR DATA: [employer] 1800 [employer]ATION MANUAL( AUTOMATED BLOOD COUNTS AND DIFF.) APPENDIX B-3 CHRONIC KIDNEY DISEASE STAGING PER NKF: MALE GFR INTERPRETATION: 20-49 YRS: >60 mL/min Normal 50-59 YRS: >56 mL/min Normal 60-69 YRS: >49 mL/min Normal 70-79 YRS: >42 mL/min Normal 80 and above >35 mL/min Normal FEMALE GRF INTERPRETATION: 20-39 YRS: >60 mL/min Normal 40-49 YRS: >58 mL/min Normal 50-59 YRS: >51 mL/min Normal 60-69 YRS: >45 mL/min Normal 70-79 YRS: >39 mL/min Normal 80 and above >32 mL/min Normal RDW-CV 12.5 % 11.5-14.5 [facility] NORMAL RANGES Age WBC RBC HGB HCT MCV PLT Adult M 4.1-10.9 4.20-6.30 12.0-18.0 37.0-51.0 80-97 140-440 Adult F 4.1-10.9 4.04-5.48 12.0-18.0 37.0-51.0 80-97 140-440 0 -1 Yr 5.0-20.0 3.9-5.9 15-18 MV: 44 MV: 91 MV: 277 2-9 Yr. 6.0-17.0 3.8-5.4 11-13 MV: 37 MV: 78 MV: 300 10 Yrs. 5.0-13.0 3.8-5.4 12-15 MV: 39 MV: 80 MV: 250 NOTE: * FOR ADULT BLACK MALES AND FEMALES, NORMAL WBC IS 2.9-7.7 K/ML * FOR ADULT BLACK MALES AND FEMALES, NORMAL RBC,HGB, AND HCT IS 5% LESS SOURCE FOR DATA: [employer] 1800 [employer] MANUAL( AUTOMATED BLOOD COUNTS AND DIFF.) APPENDIX B-3 CHRONIC KIDNEY DISEASE STAGING PER NKF: MALE GFR INTERPRETATION: 20-49 YRS: >60 mL/min Normal 50-59 YRS: >56 mL/min Normal 60-69 YRS: >49 mL/min Normal 70-79 YRS: >42 mL/min Normal 80 and above >35 mL/min Normal FEMALE GRF INTERPRETATION: 20-39 YRS: >60 mL/min Normal 40-49 YRS: >58 mL/min Normal 50-59 YRS: >51 mL/min Normal 60-69 YRS: >45 mL/min Normal 70-79 YRS: >39 mL/min Normal 80 and above >32 mL/min Normal MXD% 11.8 % 0.1-24.0 [facility] ([facility] NORMAL RANGES Age WBC RBC HGB HCT MCV PLT Adult M 4.1-10.9 4.20-6.30 12.0-18.0 37.0-51.0 80-97 140-440 Adult F 4.1-10.9 4.04-5.48 12.0-18.0 37.0-51.0 80-97 140-440 0 -1 Yr 5.0-20.0 3.9-5.9 15-18 MV: 44 MV: 91 MV: 277 2-9 Yr. 6.0-17.0 3.8-5.4 11-13 MV: 37 MV: 78 MV: 300 10 Yrs. 5.0-13.0 3.8-5.4 12-15 MV: 39 MV: 80 MV: 250 NOTE: * FOR ADULT BLACK MALES AND FEMALES, NORMAL WBC IS 2.9-7.7 K/ML * FOR ADULT BLACK MALES AND FEMALES, NORMAL RBC,HGB, AND HCT IS 5% LESS SOURCE FOR DATA: [employer] 1800 [employer] MANUAL( AUTOMATED BLOOD COUNTS AND DIFF.) APPENDIX B-3 CHRONIC KIDNEY DISEASE STAGING PER NKF: MALE GFR INTERPRETATION: 20-49 YRS: >60 mL/min Normal 50-59 YRS: >56 mL/min Normal 60-69 YRS: >49 mL/min Normal 70-79 YRS: >42 mL/min Normal 80 and above >35 mL/min Normal FEMALE GRF INTERPRETATION: 20-39 YRS: >60 mL/min Normal 40-49 YRS: >58 mL/min Normal 50-59 YRS: >51 mL/min Normal 60-69 YRS: >45 mL/min Normal 70-79 YRS: >39 mL/min Normal 80 and above >32 mL/min Normal Lym# 0.7 10E3/uL 0.6-4.1 [facility] ([facility] NORMAL RANGES Age WBC RBC HGB HCT MCV PLT Adult M 4.1-10.9 4.20-6.30 12.0-18.0 37.0-51.0 80-97 140-440 Adult F 4.1-10.9 4.04-5.48 12.0-18.0 37.0-51.0 80-97 140-440 0 -1 Yr 5.0-20.0 3.9-5.9 15-18 MV: 44 MV: 91 MV: 277 2-9 Yr. 6.0-17.0 3.8-5.4 11-13 MV: 37 MV: 78 MV: 300 10 Yrs. 5.0-13.0 3.8-5.4 12-15 MV: 39 MV: 80 MV: 250 NOTE: * FOR ADULT BLACK MALES AND FEMALES, NORMAL WBC IS 2.9-7.7 K/ML * FOR ADULT BLACK MALES AND FEMALES, NORMAL RBC,HGB, AND HCT IS 5% LESS SOURCE FOR DATA: [employer] 1800 OPERATION MANUAL( AUTOMATED BLOOD COUNTS AND DIFF.) APPENDIX B-3 CHRONIC KIDNEY DISEASE STAGING PER NKF: MALE GFR INTERPRETATION: 20-49 YRS: >60 mL/min Normal 50-59 YRS: >56 mL/min Normal 60-69 YRS: >49 mL/min Normal 70-79 YRS: >42 mL/min Normal 80 and above >35 mL/min Normal FEMALE GRF INTERPRETATION: 20-39 YRS: >60 mL/min Normal 40-49 YRS: >58 mL/min Normal 50-59 YRS: >51 mL/min Normal 60-69 YRS: >45 mL/min Normal 70-79 YRS: >39 mL/min Normal 80 and above >32 mL/min Normal MXD# 0.9 10E3/uL 0.0-1.8 [facility] ([facility] NORMAL RANGES Age WBC RBC HGB HCT MCV PLT Adult M 4.1-10.9 4.20-6.30 12.0-18.0 37.0-51.0 80-97 140-440 Adult F 4.1-10.9 4.04-5.48 12.0-18.0 37.0-51.0 80-97 140-440 0 -1 Yr 5.0-20.0 3.9-5.9 15-18 MV: 44 MV: 91 MV: 277 2-9 Yr. 6.0-17.0 3.8-5.4 11-13 MV: 37 MV: 78 MV: 300 10 Yrs. 5.0-13.0 3.8-5.4 12-15 MV: 39 MV: 80 MV: 250 NOTE: * FOR ADULT BLACK MALES AND FEMALES, NORMAL WBC IS 2.9-7.7 K/ML * FOR ADULT BLACK MALES AND FEMALES, NORMAL RBC,HGB, AND HCT IS 5% LESS SOURCE FOR DATA: [employer] 1800 OPERATION MANUAL( AUTOMATED BLOOD COUNTS AND DIFF.) APPENDIX B-3 CHRONIC KIDNEY DISEASE STAGING PER NKF: MALE GFR INTERPRETATION: 20-49 YRS: >60 mL/min Normal 50-59 YRS: >56 mL/min Normal 60-69 YRS: >49 mL/min Normal 70-79 YRS: >42 mL/min Normal 80 and above >35 mL/min Normal FEMALE GRF INTERPRETATION: 20-39 YRS: >60 mL/min Normal 40-49 YRS: >58 mL/min Normal 50-59 YRS: >51 mL/min Normal 60-69 YRS: >45 mL/min Normal 70-79 YRS: >39 mL/min Normal 80 and above >32 mL/min Normal Neut# 6.1 % 2.0-7.8 [facility] NORMAL RANGES Age WBC RBC HGB HCT MCV PLT Adult M 4.1-10.9 4.20-6.30 12.0-18.0 37.0-51.0 80-97 140-440 Adult F 4.1-10.9 4.04-5.48 12.0-18.0 37.0-51.0 80-97 140-440 0 -1 Yr 5.0-20.0 3.9-5.9 15-18 MV: 44 MV: 91 MV: 277 2-9 Yr. 6.0-17.0 3.8-5.4 11-13 MV: 37 MV: 78 MV: 300 10 Yrs. 5.0-13.0 3.8-5.4 12-15 MV: 39 MV: 80 MV: 250 NOTE: * FOR ADULT BLACK MALES AND FEMALES, NORMAL WBC IS 2.9-7.7 K/ML * FOR ADULT BLACK MALES AND FEMALES, NORMAL RBC,HGB, AND HCT IS 5% LESS SOURCE FOR DATA: [employer] 1800 OPERATION MANUAL( AUTOMATED BLOOD COUNTS AND DIFF.) APPENDIX B-3 CHRONIC KIDNEY DISEASE STAGING PER NKF: MALE GFR INTERPRETATION: 20-49 YRS: >60 mL/min Normal 50-59 YRS: >56 mL/min Normal 60-69 YRS: >49 mL/min Normal 70-79 YRS: >42 mL/min Normal 80 and above >35 mL/min Normal FEMALE GRF INTERPRETATION: 20-39 YRS: >60 mL/min Normal 40-49 YRS: >58 mL/min Normal 50-59 YRS: >51 mL/min Normal 60-69 YRS: >45 mL/min Normal 70-79 YRS: >39 mL/min Normal 80 and above >32 mL/min Normal MPV 8.5 fL 9.0-13.0 Below low normal [facility] NORMAL RANGES Age WBC RBC HGB HCT MCV PLT Adult M 4.1-10.9 4.20-6.30 12.0-18.0 37.0-51.0 80-97 140-440 Adult F 4.1-10.9 4.04-5.48 12.0-18.0 37.0-51.0 80- 140-440 0 -1 Yr 5.0-20.0 3.9-5.9 15-18 MV: 44 MV: 91 MV: 277 2-9 Yr. 6.0-17.0 3.8-5.4 11-13 MV: 37 MV: 78 MV: 300 10 Yrs. 5.0-13.0 3.8-5.4 12-15 MV: 39 MV: 80 MV: 250 NOTE: * FOR ADULT BLACK MALES AND FEMALES, NORMAL WBC IS 2.9-7.7 K/ML * FOR ADULT BLACK MALES AND FEMALES, NORMAL RBC,HGB, AND HCT IS 5% LESS SOURCE FOR DATA: [employer] 1800 OPERATION MANUAL( AUTOMATED BLOOD COUNTS AND DIFF.) APPENDIX B-3 CHRONIC KIDNEY DISEASE STAGING PER NKF: MALE GFR INTERPRETATION: 20-49 YRS: >60 mL/min Normal 50-59 YRS: >56 mL/min Normal 60-69 YRS: >49 mL/min Normal 70-79 YRS: >42 mL/min Normal 80 and above >35 mL/min Normal FEMALE GRF INTERPRETATION: 20-39 YRS: >60 mL/min Normal 40-49 YRS: >58 mL/min Normal 50-59 YRS: >51 mL/min Normal 60-69 YRS: >45 mL/min Normal 70-79 YRS: >39 mL/min Normal 80 and above >32 mL/min Normal ID Date Data Source [id number] 06/25/2020 01:54:00 PM EST [facility] ([facility] Name Value Range Interpretation Code Description Data Deepa rce(s) Supporting Document(s) BUN 11 mg/dL 8-23 [facility] NORMAL RANGES Age WBC RBC HGB HCT MCV PLT Adult M 4.1-10.9 4.20-6.30 12.0-18.0 37.0-51.0 80-97 140-440 Adult F 4.1-10.9 4.04-5.48 12.0-18.0 37.0-51.0 80-97 140-440 0 -1 Yr 5.0-20.0 3.9-5.9 15-18 MV: 44 MV: 91 MV: 277 2-9 Yr. 6.0-17.0 3.8-5.4 11-13 MV: 37 MV: 78 MV: 300 10 Yrs. 5.0-13.0 3.8-5.4 12-15 MV: 39 MV: 80 MV: 250 NOTE: * FOR ADULT BLACK MALES AND FEMALES, NORMAL WBC IS 2.9-7.7 K/ML * FOR ADULT BLACK MALES AND FEMALES, NORMAL RBC,HGB, AND HCT IS 5% LESS SOURCE FOR DATA: [employer] 1800 OPERATION MANUAL( AUTOMATED BLOOD COUNTS AND DIFF.) APPENDIX B-3 CHRONIC KIDNEY DISEASE STAGING PER NKF: MALE GFR INTERPRETATION: 20-49 YRS: >60 mL/min Normal 50-59 YRS: >56 mL/min Normal 60-69 YRS: >49 mL/min Normal 70-79 YRS: >42 mL/min Normal 80 and above >35 mL/min Normal FEMALE GRF INTERPRETATION: 20-39 YRS: >60 mL/min Normal 40-49 YRS: >58 mL/min Normal 50-59 YRS: >51 mL/min Normal 60-69 YRS: >45 mL/min Normal 70-79 YRS: >39 mL/min Normal 80 and above >32 mL/min Normal Glu 132 mg/dL 70-110 Above high normal [facility] ([facility] NORMAL RANGES Age WBC RBC HGB HCT MCV PLT Adult M 4.1-10.9 4.20-6.30 12.0-18.0 37.0-51.0 80-97 140-440 Adult F 4.1-10.9 4.04-5.48 12.0-18.0 37.0-51.0 80-97 140-440 0 -1 Yr 5.0-20.0 3.9-5.9 15-18 MV: 44 MV: 91 MV: 277 2-9 Yr. 6.0-17.0 3.8-5.4 11-13 MV: 37 MV: 78 MV: 300 10 Yrs. 5.0-13.0 3.8-5.4 12-15 MV: 39 MV: 80 MV: 250 NOTE: * FOR ADULT BLACK MALES AND FEMALES, NORMAL WBC IS 2.9-7.7 K/ML * FOR ADULT BLACK MALES AND FEMALES, NORMAL RBC,HGB, AND HCT IS 5% LESS SOURCE FOR DATA: [employer] 1800 OPERATION MANUAL( AUTOMATED BLOOD COUNTS AND DIFF.) APPENDIX B-3 CHRONIC KIDNEY DISEASE STAGING PER NKF: MALE GFR INTERPRETATION: 20-49 YRS: >60 mL/min Normal 50-59 YRS: >56 mL/min Normal 60-69 YRS: >49 mL/min Normal 70-79 YRS: >42 mL/min Normal 80 and above >35 mL/min Normal FEMALE GRF INTERPRETATION: 20-39 YRS: >60 mL/min Normal 40-49 YRS: >58 mL/min Normal 50-59 YRS: >51 mL/min Normal 60-69 YRS: >45 mL/min Normal 70-79 YRS: >39 mL/min Normal 80 and above >32 mL/min Normal BUN/Creatinine Ratio 18.1 [facility] ([facility] NORMAL RANGES Age WBC RBC HGB HCT MCV PLT Adult M 4.1-10.9 4.20-6.30 12.0-18.0 37.0-51.0 80-97 140-440 Adult F 4.1-10.9 4.04-5.48 12.0-18.0 37.0-51.0 80-97 140-440 0 -1 Yr 5.0-20.0 3.9-5.9 15-18 MV: 44 MV: 91 MV: 277 2-9 Yr. 6.0-17.0 3.8-5.4 11-13 MV: 37 MV: 78 MV: 300 10 Yrs. 5.0-13.0 3.8-5.4 12-15 MV: 39 MV: 80 MV: 250 NOTE: * FOR ADULT BLACK MALES AND FEMALES, NORMAL WBC IS 2.9-7.7 K/ML * FOR ADULT BLACK MALES AND FEMALES, NORMAL RBC,HGB, AND HCT IS 5% LESS SOURCE FOR DATA: [employer] 1800 OPERATION MANUAL( AUTOMATED BLOOD COUNTS AND DIFF.) APPENDIX B-3 CHRONIC KIDNEY DISEASE STAGING PER NKF: MALE GFR INTERPRETATION: 20-49 YRS: >60 mL/min Normal 50-59 YRS: >56 mL/min Normal 60-69 YRS: >49 mL/min Normal 70-79 YRS: >42 mL/min Normal 80 and above >35 mL/min Normal FEMALE GRF INTERPRETATION: 20-39 YRS: >60 mL/min Normal 40-49 YRS: >58 mL/min Normal 50-59 YRS: >51 mL/min Normal 60-69 YRS: >45 mL/min Normal 70-79 YRS: >39 mL/min Normal 80 and above >32 mL/min Normal Creat 0.6 mg/dL 0.5-1.0 [facility] ([facility] NORMAL RANGES Age WBC RBC HGB HCT MCV PLT Adult M 4.1-10.9 4.20-6.30 12.0-18.0 37.0-51.0 80-97 140-440 Adult F 4.1-10.9 4.04-5.48 12.0-18.0 37.0-51.0 80-97 140-440 0 -1 Yr 5.0-20.0 3.9-5.9 15-18 MV: 44 MV: 91 MV: 277 2-9 Yr. 6.0-17.0 3.8-5.4 11-13 MV: 37 MV: 78 MV: 300 10 Yrs. 5.0-13.0 3.8-5.4 12-15 MV: 39 MV: 80 MV: 250 NOTE: * FOR ADULT BLACK MALES AND FEMALES, NORMAL WBC IS 2.9-7.7 K/ML * FOR ADULT BLACK MALES AND FEMALES, NORMAL RBC,HGB, AND HCT IS 5% LESS SOURCE FOR DATA: [employer] 1800 OPERATION MANUAL( AUTOMATED BLOOD COUNTS AND DIFF.) APPENDIX B-3 CHRONIC KIDNEY DISEASE STAGING PER NKF: MALE GFR INTERPRETATION: 20-49 YRS: >60 mL/min Normal 50-59 YRS: >56 mL/min Normal 60-69 YRS: >49 mL/min Normal 70-79 YRS: >42 mL/min Normal 80 and above >35 mL/min Normal FEMALE GRF INTERPRETATION: 20-39 YRS: >60 mL/min Normal 40-49 YRS: >58 mL/min Normal 50-59 YRS: >51 mL/min Normal 60-69 YRS: >45 mL/min Normal 70-79 YRS: >39 mL/min Normal 80 and above >32 mL/min Normal Na 133 mmol/L 136-145 Below low normal [facility] ( [facility] NORMAL RANGES Age WBC RBC HGB HCT MCV PLT Adult M 4.1-10.9 4.20-6.30 12.0-18.0 37.0-51.0 80-97 140-440 Adult F 4.1-10.9 4.04-5.48 12.0-18.0 37.0-51.0 80-97 140-440 0 -1 Yr 5.0-20.0 3.9-5.9 15-18 MV: 44 MV: 91 MV: 277 2-9 Yr. 6.0-17.0 3.8-5.4 11-13 MV: 37 MV: 78 MV: 300 10 Yrs. 5.0-13.0 3.8-5.4 12-15 MV: 39 MV: 80 MV: 250 NOTE: * FOR ADULT BLACK MALES AND FEMALES, NORMAL WBC IS 2.9-7.7 K/ML * FOR ADULT BLACK MALES AND FEMALES, NORMAL RBC,HGB, AND HCT IS 5% LESS SOURCE FOR DATA: [employer] 1800 OPERATION MANUAL( AUTOMATED BLOOD COUNTS AND DIFF.) APPENDIX B-3 CHRONIC KIDNEY DISEASE STAGING PER NKF: MALE GFR INTERPRETATION: 20-49 YRS: >60 mL/min Normal 50-59 YRS: >56 mL/min Normal 60-69 YRS: >49 mL/min Normal 70-79 YRS: >42 mL/min Normal 80 and above >35 mL/min Normal FEMALE GRF INTERPRETATION: 20-39 YRS: >60 mL/min Normal 40-49 YRS: >58 mL/min Normal 50-59 YRS: >51 mL/min Normal 60-69 YRS: >45 mL/min Normal 70-79 YRS: >39 mL/min Normal 80 and above >32 mL/min Normal CL 97.8 mmol/L 98.0-107.0 Below low normal [facility] ([facility] NORMAL RANGES Age WBC RBC HGB HCT MCV PLT Adult M 4.1-10.9 4.20-6.30 12.0-18.0 37.0-51.0 80-97 140-440 Adult F 4.1-10.9 4.04-5.48 12.0-18.0 37.0-51.0 80-97 140-440 0 -1 Yr 5.0-20.0 3.9-5.9 15-18 MV: 44 MV: 91 MV: 277 2-9 Yr. 6.0-17.0 3.8-5.4 11-13 MV: 37 MV: 78 MV: 300 10 Yrs. 5.0-13.0 3.8-5.4 12-15 MV: 39 MV: 80 MV: 250 NOTE: * FOR ADULT BLACK MALES AND FEMALES, NORMAL WBC IS 2.9-7.7 K/ML * FOR ADULT BLACK MALES AND FEMALES, NORMAL RBC,HGB, AND HCT IS 5% LESS SOURCE FOR DATA: [employer] 1800 OPERATION MANUAL( AUTOMATED BLOOD COUNTS AND DIFF.) APPENDIX B-3 CHRONIC KIDNEY DISEASE STAGING PER NKF: MALE GFR INTERPRETATION: 20-49 YRS: >60 mL/min Normal 50-59 YRS: >56 mL/min Normal 60-69 YRS: >49 mL/min Normal 70-79 YRS: >42 mL/min Normal 80 and above >35 mL/min Normal FEMALE GRF INTERPRETATION: 20-39 YRS: >60 mL/min Normal 40-49 YRS: >58 mL/min Normal 50-59 YRS: >51 mL/min Normal 60-69 YRS: >45 mL/min Normal 70-79 YRS: >39 mL/min Normal 80 and above >32 mL/min Normal K 4.3 mmol/L 3.5-5.1 [facility] NORMAL RANGES Age WBC RBC HGB HCT MCV PLT Adult M 4.1-10.9 4.20-6.30 12.0-18.0 37.0-51.0 80-97 140-440 Adult F 4.1-10.9 4.04-5.48 12.0-18.0 37.0-51.0 80-97 140-440 0 -1 Yr 5.0-20.0 3.9-5.9 15-18 MV: 44 MV: 91 MV: 277 2-9 Yr. 6.0-17.0 3.8-5.4 11-13 MV: 37 MV: 78 MV: 300 10 Yrs. 5.0-13.0 3.8-5.4 12-15 MV: 39 MV: 80 MV: 250 NOTE: * FOR ADULT BLACK MALES AND FEMALES, NORMAL WBC IS 2.9-7.7 K/ML * FOR ADULT BLACK MALES AND FEMALES, NORMAL RBC,HGB, AND HCT IS 5% LESS SOURCE FOR DATA: [employer] 1800 OPERATION MANUAL( AUTOMATED BLOOD COUNTS AND DIFF.) APPENDIX B-3 CHRONIC KIDNEY DISEASE STAGING PER NKF: MALE GFR INTERPRETATION: 20-49 YRS: >60 mL/min Normal 50-59 YRS: >56 mL/min Normal 60-69 YRS: >49 mL/min Normal 70-79 YRS: >42 mL/min Normal 80 and above >35 mL/min Normal FEMALE GRF INTERPRETATION: 20-39 YRS: >60 mL/min Normal 40-49 YRS: >58 mL/min Normal 50-59 YRS: >51 mL/min Normal 60-69 YRS: >45 mL/min Normal 70-79 YRS: >39 mL/min Normal 80 and above >32 mL/min Normal Co2 27.6 mmol/L 22.0-29.0 [facility] ([facility] NORMAL RANGES Age WBC RBC HGB HCT MCV PLT Adult M 4.1-10.9 4.20-6.30 12.0-18.0 37.0-51.0 80-97 140-440 Adult F 4.1-10.9 4.04-5.48 12.0-18.0 37.0-51.0 80-97 140-440 0 -1 Yr 5.0-20.0 3.9-5.9 15-18 MV: 44 MV: 91 MV: 277 2-9 Yr. 6.0-17.0 3.8-5.4 11-13 MV: 37 MV: 78 MV: 300 10 Yrs. 5.0-13.0 3.8-5.4 12-15 MV: 39 MV: 80 MV: 250 NOTE: * FOR ADULT BLACK MALES AND FEMALES, NORMAL WBC IS 2.9-7.7 K/ML * FOR ADULT BLACK MALES AND FEMALES, NORMAL RBC,HGB, AND HCT IS 5% LESS SOURCE FOR DATA: [employer] 1800 OPERATION MANUAL( AUTOMATED BLOOD COUNTS AND DIFF.) APPENDIX B-3 CHRONIC KIDNEY DISEASE STAGING PER NKF: MALE GFR INTERPRETATION: 20-49 YRS: >60 mL/min Normal 50-59 YRS: >56 mL/min Normal 60-69 YRS: >49 mL/min Normal 70-79 YRS: >42 mL/min Normal 80 and above >35 mL/min Normal FEMALE GRF INTERPRETATION: 20-39 YRS: >60 mL/min Normal 40-49 YRS: >58 mL/min Normal 50-59 YRS: >51 mL/min Normal 60-69 YRS: >45 mL/min Normal 70-79 YRS: >39 mL/min Normal 80 and above >32 mL/min Normal CA 10.7 mg/dL 8.6-10.2 Above high normal [facility] ([facility] NORMAL RANGES Age WBC RBC HGB HCT MCV PLT Adult M 4.1-10.9 4.20-6.30 12.0-18.0 37.0-51.0 80-97 140-440 Adult F 4.1-10.9 4.04-5.48 12.0-18.0 37.0-51.0 80-97 140-440 0 -1 Yr 5.0-20.0 3.9-5.9 15-18 MV: 44 MV: 91 MV: 277 2-9 Yr. 6.0-17.0 3.8-5.4 11-13 MV: 37 MV: 78 MV: 300 10 Yrs. 5.0-13.0 3.8-5.4 12-15 MV: 39 MV: 80 MV: 250 NOTE: * FOR ADULT BLACK MALES AND FEMALES, NORMAL WBC IS 2.9-7.7 K/ML * FOR ADULT BLACK MALES AND FEMALES, NORMAL RBC,HGB, AND HCT IS 5% LESS SOURCE FOR DATA: [employer] 1800 OPERATION MANUAL( AUTOMATED BLOOD COUNTS AND DIFF.) APPENDIX B-3 CHRONIC KIDNEY DISEASE STAGING PER NKF: MALE GFR INTERPRETATION: 20-49 YRS: >60 mL/min Normal 50-59 YRS: >56 mL/min Normal 60-69 YRS: >49 mL/min Normal 70-79 YRS: >42 mL/min Normal 80 and above >35 mL/min Normal FEMALE GRF INTERPRETATION: 20-39 YRS: >60 mL/min Normal 40-49 YRS: >58 mL/min Normal 50-59 YRS: >51 mL/min Normal 60-69 YRS: >45 mL/min Normal 70-79 YRS: >39 mL/min Normal 80 and above >32 mL/min Normal TP 6.9 g/dL 6.6-8.7 [facility] ([facility] NORMAL RANGES Age WBC RBC HGB HCT MCV PLT Adult M 4.1-10.9 4.20-6.30 12.0-18.0 37.0-51.0 80-97 140-440 Adult F 4.1-10.9 4.04-5.48 12.0-18.0 37.0-51.0 80-97 140-440 0 -1 Yr 5.0-20.0 3.9-5.9 15-18 MV: 44 MV: 91 MV: 277 2-9 Yr. 6.0-17.0 3.8-5.4 11-13 MV: 37 MV: 78 MV: 300 10 Yrs. 5.0-13.0 3.8-5.4 12-15 MV: 39 MV: 80 MV: 250 NOTE: * FOR ADULT BLACK MALES AND FEMALES, NORMAL WBC IS 2.9-7.7 K/ML * FOR ADULT BLACK MALES AND FEMALES, NORMAL RBC,HGB, AND HCT IS 5% LESS SOURCE FOR DATA: [employer] 1800 OPERATION MANUAL( AUTOMATED BLOOD COUNTS AND DIFF.) APPENDIX B-3 CHRONIC KIDNEY DISEASE STAGING PER NKF: MALE GFR INTERPRETATION: 20-49 YRS: >60 mL/min Normal 50-59 YRS: >56 mL/min Normal 60-69 YRS: >49 mL/min Normal 70-79 YRS: >42 mL/min Normal 80 and above >35 mL/min Normal FEMALE GRF INTERPRETATION: 20-39 YRS: >60 mL/min Normal 40-49 YRS: >58 mL/min Normal 50-59 YRS: >51 mL/min Normal 60-69 YRS: >45 mL/min Normal 70-79 YRS: >39 mL/min Normal 80 and above >32 mL/min Normal Alb 3.2 g/dL 3.4-4.8 Below low normal [facility] ( [facility] NORMAL RANGES Age WBC RBC HGB HCT MCV PLT Adult M 4.1-10.9 4.20-6.30 12.0-18.0 37.0-51.0 80-97 140-440 Adult F 4.1-10.9 4.04-5.48 12.0-18.0 37.0-51.0 80-97 140-440 0 -1 Yr 5.0-20.0 3.9-5.9 15-18 MV: 44 MV: 91 MV: 277 2-9 Yr. 6.0-17.0 3.8-5.4 11-13 MV: 37 MV: 78 MV: 300 10 Yrs. 5.0-13.0 3.8-5.4 12-15 MV: 39 MV: 80 MV: 250 NOTE: * FOR ADULT BLACK MALES AND FEMALES, NORMAL WBC IS 2.9-7.7 K/ML * FOR ADULT BLACK MALES AND FEMALES, NORMAL RBC,HGB, AND HCT IS 5% LESS SOURCE FOR DATA: [employer] 1800 OPERATION MANUAL( AUTOMATED BLOOD COUNTS AND DIFF.) APPENDIX B-3 CHRONIC KIDNEY DISEASE STAGING PER NKF: MALE GFR INTERPRETATION: 20-49 YRS: >60 mL/min Normal 50-59 YRS: >56 mL/min Normal 60-69 YRS: >49 mL/min Normal 70-79 YRS: >42 mL/min Normal 80 and above >35 mL/min Normal FEMALE GRF INTERPRETATION: 20-39 YRS: >60 mL/min Normal 40-49 YRS: >58 mL/min Normal 50-59 YRS: >51 mL/min Normal 60-69 YRS: >45 mL/min Normal 70-79 YRS: >39 mL/min Normal 80 and above >32 mL/min Normal Alp 82.7 U/L 35-129 [facility] ([facility] NORMAL RANGES Age WBC RBC HGB HCT MCV PLT Adult M 4.1-10.9 4.20-6.30 12.0-18.0 37.0-51.0 80-97 140-440 Adult F 4.1-10.9 4.04-5.48 12.0-18.0 37.0-51.0 80-97 140-440 0 -1 Yr 5.0-20.0 3.9-5.9 15-18 MV: 44 MV: 91 MV: 277 2-9 Yr. 6.0-17.0 3.8-5.4 11-13 MV: 37 MV: 78 MV: 300 10 Yrs. 5.0-13.0 3.8-5.4 12-15 MV: 39 MV: 80 MV: 250 NOTE: * FOR ADULT BLACK MALES AND FEMALES, NORMAL WBC IS 2.9-7.7 K/ML * FOR ADULT BLACK MALES AND FEMALES, NORMAL RBC,HGB, AND HCT IS 5% LESS SOURCE FOR DATA: [employer] 1800 OPERATION MANUAL( AUTOMATED BLOOD COUNTS AND DIFF.) APPENDIX B-3 CHRONIC KIDNEY DISEASE STAGING PER NKF: MALE GFR INTERPRETATION: 20-49 YRS: >60 mL/min Normal 50-59 YRS: >56 mL/min Normal 60-69 YRS: >49 mL/min Normal 70-79 YRS: >42 mL/min Normal 80 and above >35 mL/min Normal FEMALE GRF INTERPRETATION: 20-39 YRS: >60 mL/min Normal 40-49 YRS: >58 mL/min Normal 50-59 YRS: >51 mL/min Normal 60-69 YRS: >45 mL/min Normal 70-79 YRS: >39 mL/min Normal 80 and above >32 mL/min Normal A/G Ratio 0.9 [facility] ([facility] NORMAL RANGES Age WBC RBC HGB HCT MCV PLT Adult M 4.1-10.9 4.20-6.30 12.0-18.0 37.0-51.0 80-97 140-440 Adult F 4.1-10.9 4.04-5.48 12.0-18.0 37.0-51.0 80-97 140-440 0 -1 Yr 5.0-20.0 3.9-5.9 15-18 MV: 44 MV: 91 MV: 277 2-9 Yr. 6.0-17.0 3.8-5.4 11-13 MV: 37 MV: 78 MV: 300 10 Yrs. 5.0-13.0 3.8-5.4 12-15 MV: 39 MV: 80 MV: 250 NOTE: * FOR ADULT BLACK MALES AND FEMALES, NORMAL WBC IS 2.9-7.7 K/ML * FOR ADULT BLACK MALES AND FEMALES, NORMAL RBC,HGB, AND HCT IS 5% LESS SOURCE FOR DATA: [employer] 1800 [employer] MANUAL( AUTOMATED BLOOD COUNTS AND DIFF.) APPENDIX B-3 CHRONIC KIDNEY DISEASE STAGING PER NKF: MALE GFR INTERPRETATION: 20-49 YRS: >60 mL/min Normal 50-59 YRS: >56 mL/min Normal 60-69 YRS: >49 mL/min Normal 70-79 YRS: >42 mL/min Normal 80 and above >35 mL/min Normal FEMALE GRF INTERPRETATION: 20-39 YRS: >60 mL/min Normal 40-49 YRS: >58 mL/min Normal 50-59 YRS: >51 mL/min Normal 60-69 YRS: >45 mL/min Normal 70-79 YRS: >39 mL/min Normal 80 and above >32 mL/min Normal Globulin 3.7 [facility] ([facility] NORMAL RANGES Age WBC RBC HGB HCT MCV PLT Adult M 4.1-10.9 4.20-6.30 12.0-18.0 37.0-51.0 80-97 140-440 Adult F 4.1-10.9 4.04-5.48 12.0-18.0 37.0-51.0 80-97 140-440 0 -1 Yr 5.0-20.0 3.9-5.9 15-18 MV: 44 MV: 91 MV: 277 2-9 Yr. 6.0-17.0 3.8-5.4 11-13 MV: 37 MV: 78 MV: 300 10 Yrs. 5.0-13.0 3.8-5.4 12-15 MV: 39 MV: 80 MV: 250 NOTE: * FOR ADULT BLACK MALES AND FEMALES, NORMAL WBC IS 2.9-7.7 K/ML * FOR ADULT BLACK MALES AND FEMALES, NORMAL RBC,HGB, AND HCT IS 5% LESS SOURCE FOR DATA: [employer] 1800 [employer]UAL( AUTOMATED BLOOD COUNTS AND DIFF.) APPENDIX B-3 CHRONIC KIDNEY DISEASE STAGING PER NKF: MALE GFR INTERPRETATION: 20-49 YRS: >60 mL/min Normal 50-59 YRS: >56 mL/min Normal 60-69 YRS: >49 mL/min Normal 70-79 YRS: >42 mL/min Normal 80 and above >35 mL/min Normal FEMALE GRF INTERPRETATION: 20-39 YRS: >60 mL/min Normal 40-49 YRS: >58 mL/min Normal 50-59 YRS: >51 mL/min Normal 60-69 YRS: >45 mL/min Normal 70-79 YRS: >39 mL/min Normal 80 and above >32 mL/min Normal Alt (SGPT) 13 U/L 0-41 [facility] ([facility] NORMAL RANGES Age WBC RBC HGB HCT MCV PLT Adult M 4.1-10.9 4.20-6.30 12.0-18.0 37.0-51.0 80-97 140-440 Adult F 4.1-10.9 4.04-5.48 12.0-18.0 37.0-51.0 80-97 140-440 0 -1 Yr 5.0-20.0 3.9-5.9 15-18 MV: 44 MV: 91 MV: 277 2-9 Yr. 6.0-17.0 3.8-5.4 11-13 MV: 37 MV: 78 MV: 300 10 Yrs. 5.0-13.0 3.8-5.4 12-15 MV: 39 MV: 80 MV: 250 NOTE: * FOR ADULT BLACK MALES AND FEMALES, NORMAL WBC IS 2.9-7.7 K/ML * FOR ADULT BLACK MALES AND FEMALES, NORMAL RBC,HGB, AND HCT IS 5% LESS SOURCE FOR DATA: [employer] 1800 [employer]UAL( AUTOMATED BLOOD COUNTS AND DIFF.) APPENDIX B-3 CHRONIC KIDNEY DISEASE STAGING PER NKF: MALE GFR INTERPRETATION: 20-49 YRS: >60 mL/min Normal 50-59 YRS: >56 mL/min Normal 60-69 YRS: >49 mL/min Normal 70-79 YRS: >42 mL/min Normal 80 and above >35 mL/min Normal FEMALE GRF INTERPRETATION: 20-39 YRS: >60 mL/min Normal 40-49 YRS: >58 mL/min Normal 50-59 YRS: >51 mL/min Normal 60-69 YRS: >45 mL/min Normal 70-79 YRS: >39 mL/min Normal 80 and above >32 mL/min Normal Ast (Sgot) 22 U/L 0-40 [facility] ([facility] NORMAL RANGES Age WBC RBC HGB HCT MCV PLT Adult M 4.1-10.9 4.20-6.30 12.0-18.0 37.0-51.0 80-97 140-440 Adult F 4.1-10.9 4.04-5.48 12.0-18.0 37.0-51.0 80-97 140-440 0 -1 Yr 5.0-20.0 3.9-5.9 15-18 MV: 44 MV: 91 MV: 277 2-9 Yr. 6.0-17.0 3.8-5.4 11-13 MV: 37 MV: 78 MV: 300 10 Yrs. 5.0-13.0 3.8-5.4 12-15 MV: 39 MV: 80 MV: 250 NOTE: * FOR ADULT BLACK MALES AND FEMALES, NORMAL WBC IS 2.9-7.7 K/ML * FOR ADULT BLACK MALES AND FEMALES, NORMAL RBC,HGB, AND HCT IS 5% LESS SOURCE FOR DATA: [employer] 1800 [employer] MANUAL( AUTOMATED BLOOD COUNTS AND DIFF.) APPENDIX B-3 CHRONIC KIDNEY DISEASE STAGING PER NKF: MALE GFR INTERPRETATION: 20-49 YRS: >60 mL/min Normal 50-59 YRS: >56 mL/min Normal 60-69 YRS: >49 mL/min Normal 70-79 YRS: >42 mL/min Normal 80 and above >35 mL/min Normal FEMALE GRF INTERPRETATION: 20-39 YRS: >60 mL/min Normal 40-49 YRS: >58 mL/min Normal 50-59 YRS: >51 mL/min Normal 60-69 YRS: >45 mL/min Normal 70-79 YRS: >39 mL/min Normal 80 and above >32 mL/min Normal Anion Gap 12 mmol/L [facility] ([facility] NORMAL RANGES Age WBC RBC HGB HCT MCV PLT Adult M 4.1-10.9 4.20-6.30 12.0-18.0 37.0-51.0 80-97 140-440 Adult F 4.1-10.9 4.04-5.48 12.0-18.0 37.0-51.0 80-97 140-440 0 -1 Yr 5.0-20.0 3.9-5.9 15-18 MV: 44 MV: 91 MV: 277 2-9 Yr. 6.0-17.0 3.8-5.4 11-13 MV: 37 MV: 78 MV: 300 10 Yrs. 5.0-13.0 3.8-5.4 12-15 MV: 39 MV: 80 MV: 250 NOTE: * FOR ADULT BLACK MALES AND FEMALES, NORMAL WBC IS 2.9-7.7 K/ML * FOR ADULT BLACK MALES AND FEMALES, NORMAL RBC,HGB, AND HCT IS 5% LESS SOURCE FOR DATA: [employer] 1800 OPERATION MANUAL( AUTOMATED BLOOD COUNTS AND DIFF.) APPENDIX B-3 CHRONIC KIDNEY DISEASE STAGING PER NKF: MALE GFR INTERPRETATION: 20-49 YRS: >60 mL/min Normal 50-59 YRS: >56 mL/min Normal 60-69 YRS: >49 mL/min Normal 70-79 YRS: >42 mL/min Normal 80 and above >35 mL/min Normal FEMALE GRF INTERPRETATION: 20-39 YRS: >60 mL/min Normal 40-49 YRS: >58 mL/min Normal 50-59 YRS: >51 mL/min Normal 60-69 YRS: >45 mL/min Normal 70-79 YRS: >39 mL/min Normal 80 and above >32 mL/min Normal Osmolality-Calculated 267.5 [facility] ([facility] NORMAL RANGES Age WBC RBC HGB HCT MCV PLT Adult M 4.1-10.9 4.20-6.30 12.0-18.0 37.0-51.0 80-97 140-440 Adult F 4.1-10.9 4.04-5.48 12.0-18.0 37.0-51.0 80-97 140-440 0 -1 Yr 5.0-20.0 3.9-5.9 15-18 MV: 44 MV: 91 MV: 277 2-9 Yr. 6.0-17.0 3.8-5.4 11-13 MV: 37 MV: 78 MV: 300 10 Yrs. 5.0-13.0 3.8-5.4 12-15 MV: 39 MV: 80 MV: 250 NOTE: * FOR ADULT BLACK MALES AND FEMALES, NORMAL WBC IS 2.9-7.7 K/ML * FOR ADULT BLACK MALES AND FEMALES, NORMAL RBC,HGB, AND HCT IS 5% LESS SOURCE FOR DATA: [employer] 1800 OPERATION MANUAL( AUTOMATED BLOOD COUNTS AND DIFF.) APPENDIX B-3 CHRONIC KIDNEY DISEASE STAGING PER NKF: MALE GFR INTERPRETATION: 20-49 YRS: >60 mL/min Normal 50-59 YRS: >56 mL/min Normal 60-69 YRS: >49 mL/min Normal 70-79 YRS: >42 mL/min Normal 80 and above >35 mL/min Normal FEMALE GRF INTERPRETATION: 20-39 YRS: >60 mL/min Normal 40-49 YRS: >58 mL/min Normal 50-59 YRS: >51 mL/min Normal 60-69 YRS: >45 mL/min Normal 70-79 YRS: >39 mL/min Normal 80 and above >32 mL/min Normal Tbili 0.34 mg/dL 0.0-1.2 [employer] ([facility]note 3[facility] NORMAL RANGES Age WBC RBC HGB HCT MCV PLT Adult M 4.1-10.9 4.20-6.30 12.0-18.0 37.0-51.0 80-97 140-440 Adult F 4.1-10.9 4.04-5.48 12.0-18.0 37.0-51.0 80-97 140-440 0 -1 Yr 5.0-20.0 3.9-5.9 15-18 MV: 44 MV: 91 MV: 277 2-9 Yr. 6.0-17.0 3.8-5.4 11-13 MV: 37 MV: 78 MV: 300 10 Yrs. 5.0-13.0 3.8-5.4 12-15 MV: 39 MV: 80 MV: 250 NOTE: * FOR ADULT BLACK MALES AND FEMALES, NORMAL WBC IS 2.9-7.7 K/ML * FOR ADULT BLACK MALES AND FEMALES, NORMAL RBC,HGB, AND HCT IS 5% LESS SOURCE FOR DATA: [employer] 1800 OPERATION MANUAL( AUTOMATED BLOOD COUNTS AND DIFF.) APPENDIX B-3 CHRONIC KIDNEY DISEASE STAGING PER NKF: MALE GFR INTERPRETATION: 20-49 YRS: >60 mL/min Normal 50-59 YRS: >56 mL/min Normal 60-69 YRS: >49 mL/min Normal 70-79 YRS: >42 mL/min Normal 80 and above >35 mL/min Normal FEMALE GRF INTERPRETATION: 20-39 YRS: >60 mL/min Normal 40-49 YRS: >58 mL/min Normal 50-59 YRS: >51 mL/min Normal 60-69 YRS: >45 mL/min Normal 70-79 YRS: >39 mL/min Normal 80 and above >32 mL/min Normal eGFR 110 # [facility] ( [facility] NORMAL RANGES Age WBC RBC HGB HCT MCV PLT Adult M 4.1-10.9 4.20-6.30 12.0-18.0 37.0-51.0 80-97 140-440 Adult F 4.1-10.9 4.04-5.48 12.0-18.0 37.0-51.0 80-97 140-440 0 -1 Yr 5.0-20.0 3.9-5.9 15-18 MV: 44 MV: 91 MV: 277 2-9 Yr. 6.0-17.0 3.8-5.4 11-13 MV: 37 MV: 78 MV: 300 10 Yrs. 5.0-13.0 3.8-5.4 12-15 MV: 39 MV: 80 MV: 250 NOTE: * FOR ADULT BLACK MALES AND FEMALES, NORMAL WBC IS 2.9-7.7 K/ML * FOR ADULT BLACK MALES AND FEMALES, NORMAL RBC,HGB, AND HCT IS 5% LESS SOURCE FOR DATA: [employer] 1800 OPERATION MANUAL( AUTOMATED BLOOD COUNTS AND DIFF.) APPENDIX B-3 CHRONIC KIDNEY DISEASE STAGING PER NKF: MALE GFR INTERPRETATION: 20-49 YRS: >60 mL/min Normal 50-59 YRS: >56 mL/min Normal 60-69 YRS: >49 mL/min Normal 70-79 YRS: >42 mL/min Normal 80 and above >35 mL/min Normal FEMALE GRF INTERPRETATION: 20-39 YRS: >60 mL/min Normal 40-49 YRS: >58 mL/min Normal 50-59 YRS: >51 mL/min Normal 60-69 YRS: >45 mL/min Normal 70-79 YRS: >39 mL/min Normal 80 and above >32 mL/min Normal eGFR Non-Afr. Uzbek 95 # [facility] ([facility] NORMAL RANGES Age WBC RBC HGB HCT MCV PLT Adult M 4.1-10.9 4.20-6.30 12.0-18.0 37.0-51.0 80-97 140-440 Adult F 4.1-10.9 4.04-5.48 12.0-18.0 37.0-51.0 80-97 140-440 0 -1 Yr 5.0-20.0 3.9-5.9 15-18 MV: 44 MV: 91 MV: 277 2-9 Yr. 6.0-17.0 3.8-5.4 11-13 MV: 37 MV: 78 MV: 300 10 Yrs. 5.0-13.0 3.8-5.4 12-15 MV: 39 MV: 80 MV: 250 NOTE: * FOR ADULT BLACK MALES AND FEMALES, NORMAL WBC IS 2.9-7.7 K/ML * FOR ADULT BLACK MALES AND FEMALES, NORMAL RBC,HGB, AND HCT IS 5% LESS SOURCE FOR DATA: [employer] 1800 OPERATION MANUAL( AUTOMATED BLOOD COUNTS AND DIFF.) APPENDIX B-3 CHRONIC KIDNEY DISEASE STAGING PER NKF: MALE GFR INTERPRETATION: 20-49 YRS: >60 mL/min Normal 50-59 YRS: >56 mL/min Normal 60-69 YRS: >49 mL/min Normal 70-79 YRS: >42 mL/min Normal 80 and above >35 mL/min Normal FEMALE GRF INTERPRETATION: 20-39 YRS: >60 mL/min Normal 40-49 YRS: >58 mL/min Normal 50-59 YRS: >51 mL/min Normal 60-69 YRS: >45 mL/min Normal 70-79 YRS: >39 mL/min Normal 80 and above >32 mL/min Normal ID Date Data Source [id number] 06/25/2020 01:53:00 PM EST [facility] ([facility] Name Value Range Interpretation Code Description Data Deepa rce(s) Supporting Document(s) Lipoprotein lipase [Enzymatic activity/volume] in Serum or Plasm a 18 U/L 14-72 [facility] ([facility] ) Amylase [Enzymatic activity/volume] in Serum or Plasma 23 U/L 31-110 Below low normal [facility] ([facility] ) ID Date Data Source [id number] 06/10/2020 03:32:11 PM EST [facility] Name Value Range Interpretation Code Description Data Deepa rce(s) Supporting Document(s) Progress Note [facility] EGXSBr7iWcEBItCd28/DEPvgCHGyo0YaZTrgAIj3HDblOXZfU8WdWLR2oY2gALD8EZfEXcGdXcMvSqNv lbm [file] compliance investigator+IE1fGx79/Fe2CU/oq/bS9xJLB3iM9QYYvJWmF0cBxpn8p7ji/Yuni+Ly6pCnIxX71Yi5PsfsYtSAj [file] TFhyOdJwXX8WWu3VRpW5LBF3sEEnTf5SFYFlMcPWMeVgVR0PVXn= ID Date Data Source [id number] 06/11/2020 07:36:00 AM EST [facility] Received: 06/10/2020 at 09:00:00 QPT : [facility], [address] , [address] [place] [address], [phone] MD Received: 06/10/2020 at 09:00:00 QPT : [facility], [facility] [address] , [address] [place] [address], [phone] MD Name Value Range Interpretation Code Description Data Deepa rce(s) Supporting Document(s) ID Date Data Source [id number] 06/11/2020 07:36:00 AM EST [facility] Received: 06/10/2020 at 09:00:00 QPT : [facility], [address] , [address] [place] [address], [phone] MD Received: 06/10/2020 at 09:00:00 QPT : [facility], [facility] [address] , [address] [place] [address], [phone] MD Name Value Range Interpretation Code Description Data Deepa rce(s) Supporting Document(s) Thyroxine (T4) free [Mass/volume] in Serum or Plasma 1.1 ng/dL 0.8-1.8 Normal (applies to non-numeric results) [facility] ID Date Data Source [id number] 06/11/2020 07:36:00 AM EST [facility] Received: 06/10/2020 at 09:00:00 QPT : [facility], [address] , [address] [place] [address], [phone] MD Received: 06/10/2020 at 09:00:00 QPT : [facility], [facility] [address] , [address] [place] [address], [phone] MD Name Value Range Interpretation Code Description Data Deepa rce(s) Supporting Document(s) Thyrotropin [Units/volume] in Serum or Plasma 1.82 mIU/L 0. 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/NjX [file] A4m8AAnK/OKwTD5oyfC2pAlwwA6E6L4/vp celebrity services/kmXSw7YPAajvqFuxBc9ns6FtP1h58XTuXTiO8cyU/WYi3 [file] arnxTmHy1mc02/afBArq/OtIiSbgIbladKepEb0DOu8vKuQ3LGAwpt/Juan Jose//VGgAgrPqA0oScRg2ZuSV [file] eLdDgAp+52n2xJikuTrVnvcjov9FC4x62dIpqNX3YRqDm6S/KZ/6yj415NA3ibGBPrlLYWh43iOiD/CATERPILLAR MECHANIC [file] LSG9fA4UYCfmwhKptDhncL0+Mv65QHHvj/RT/TrMnoYpTQwIqwmpqfWe4fDFTD/presentation specialist/UcCf0yNlNuO2+ [file] 3Rw+AxXpU3g5UOJxPoeNkUFQhtcS1wY2V7A0+S07z8pHpGf0/2rXCRdL9l5F47dR11LhxovKciF1/vp celebrity services+ [file] 549G9s7S9GBBsl96hOKGR9JdLm92KtKJi/BC09V2Y2 Ipq1fpTR4cqNpR2xXTkW/8NUZ8X6NubolY78kSwyB9qG76pyNw3ttoubOvGRvNh9ZSmAQqjUM+80pJDL fwm8yqmPetI1FUr4p7LbY/MCtSGi2ITzg/MCfLgWcCkw7XViIXHT/LkpW0326Nvdp/zFyto2u+luYS2d vTptWe/SXfP0LvONvi04ExUcZXA78hHTdhJL8pxXJM K5RSaA+7d/y3jWROwreUiMMV+eOdsWDLuUOtdmtd9ZAiw+k5bqZ4TJoxDqKR5lzchFX6+sxoBLiMsMOj vrpEbiJ7ZiMHbNaYYfE2YffJq/ecI5TqCjFCv3+vQJksGeNr2SJPd+aGq8O16qZ2ltsA9GgLqrzHReQm /zo3n9zznnJb8zUJYin6XZI8Ar10Dtb6VU7bEApXpH QiSHOg2ok2pRA2wYztubqyqfhf0dBevLJGWVbaEGFIw1s2GFHZ6WXBGbLZdeoUP+XN/L4MfD/Z/GK9jW PRru2Zfa7ZNZbWJDpRt7ymHC0ImU4BdHv3jVd+cy8cjiW98/5BI5eWpN2/4e5QN+W16AcIKXDZo21/NB JcOGesUKVnpL/ZtlZIw2rk5whHspcvcu9kx5Cf6uRp fPH/6lRPsqjoJeCOkYO7LO9paWWpyzBDQXu3nezFUYkIQgStHgvu5GwUuaJW5LjQADFoez/3e+/j/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/ [file] XrUGhkahZ6QPjvD8VHjlkWAiqqUR3jLzLE9+ja0pjYko88LFx8T8tk3h0ajsThZKhZ789/inpatient auditor+U31NzT3 [file] 3whGSiCF1KEvCEWZWPZVWMJTRZPCWUJJE2BYDPTSZi UKNXURQiVGIQRUYGLEELGt18ZXNBKy27WTHAAv9QLIDEP5LRFNTMM3KEHE3LQQ7hq0HySIFmMRbnvpUz EjzONTceaPJawBzcRVTVFeAoKUQ6Im5QFGEDU0W= ID Date Data Source [id number] 03/23/2020 07:07:00 AM EST [facility] Received: 03/19/2020 at 08:43:00 AMD : [facility], [address], [place], [phone], Rosas Daniels M.D.,PhD Received: 03/19/2020 at 08:43:00 QPT : [facility], [address], [address] [place] [address], [phone], Wyatt Cates MD Name Value Range Interpretation Code Description Data Deepa rce(s) Supporting Document(s) ID Date Data Source [id number] 03/23/2020 07:07:00 AM EST [facility] Received: 03/19/2020 at 08:43:00 AMD : [facility], [address], [place], [phone], Rosas Daniels M.D.,PhD Received: 03/19/2020 at 08:43:00 QPT : [facility], [address], [address] [place] [address], [phone], Wyatt Cates MD Name Value Range Interpretation Code Description Data Deepa rce(s) Supporting Document(s) Thyroxine (T4) free [Mass/volume] in Serum or Plasma by Dial ysis 1.6 ng/dL 0.9-2.2 [facility] This test was developed and its analytic al performancecharacteristics have been determined by [facility] [place] It hasnot been cleared or approved by the U.S. Food and DrugAdministration. This assay has been validated pursuantto the CLIA regulations and is used for clinicalpurposes. ID Date Data Source [id number] 03/23/2020 07:07:00 AM EST [facility] Received: 03/19/2020 at 08:43:00 AMD : [facility], [address], [place], [phone], Rosas Daniels M.D.,PhD Received: 03/19/2020 at 08:43:00 QPT : [facility], [address] , [address] [place] [address], [phone], Wyatt Cates MD Name Value Range Interpretation Code Description Data Deepa rce(s) Supporting Document(s) Thyrotropin [Units/volume] in Serum or Plasma 0.86 mIU/L 0. 40-4.50 Normal (applies to non-numeric results) [facility] ID Date Data Source [id number] 03/12/2020 09:10:00 AM EST [facility] ([facility] Name Value Range Interpretation Code Description Data Deepa rce(s) Supporting Document(s) Calcium [Mass/volume] in Serum or Plasma 11.1 mg/dL 8.7-10.3 Above high normal [facility] ([facility] Verified by repeat analysis PTH, Intact 25 pg/mL 15-65 [facility] ([facility] Intact PTH Laboratory test result DC [facility]AR[facility] ([facility] <content>Interpretation Intact PTH Calcium</content>
<content>(pg/mL) (mg/dL)</content>
<content>Normal 15 - 65 8.6 - 10.2</content>
<content>Primary Hyperparathyroidism >65 >10.2</content>
<content>Secondary Hyperparathyroidism >65 <10.2</content>
<content>Non-Parathyroid Hypercalcemia <65 > 10.2</content>
<content>Hypoparathyroidism <15 < 8.6</content>
<content>Non-Parathyroid Hypocalcemia 15 - 65 < 8.6</content>
<content></content> ID Date Data Source [id number] 03/12/2020 08:49:00 AM EST [facility] ([facility] Name Value Range Interpretation Code Description Data Deepa rce(s) Supporting Document(s) Thyrotropin [Units/volume] in Serum or Plasma 0.512 ulU/mL 0. 60-4.8 Below low normal [facility] ([facility] ID Date Data Source [id number] 03/12/2020 08:49:00 AM EST [facility] ([facility] Name Value Range Interpretation Code Description Data Deepa rce(s) Supporting Document(s) Chol 196 mg/dL 0-200 [facility] ([facility] NORMAL RANGES Age WBC RBC HGB HCT MCV PLT Adult M 4.1-10.9 4.20-6.30 12.0-18.0 37.0-51.0 80-97 140-440 Adult F 4.1-10.9 4.04-5.48 12.0-18.0 37.0-51.0 80-97 140-440 0 -1 Yr 5.0-20.0 3.9-5.9 15-18 MV: 44 MV: 91 MV: 277 2-9 Yr. 6.0-17.0 3.8-5.4 11-13 MV: 37 MV: 78 MV: 300 10 Yrs. 5.0-13.0 3.8-5.4 12-15 MV: 39 MV: 80 MV: 250 NOTE: * FOR ADULT BLACK MALES AND FEMALES, NORMAL WBC IS 2.9-7.7 K/ML * FOR ADULT BLACK MALES AND FEMALES, NORMAL RBC,HGB, AND HCT IS 5% LESS SOURCE FOR DATA: [employer] 1800 OPERATION MANUAL( AUTOMATED BLOOD COUNTS AND DIFF.) APPENDIX B-3 CHRONIC KIDNEY DISEASE STAGING PER NKF: MALE GFR INTERPRETATION: 20-49 YRS: >60 mL/min Normal 50-59 YRS: >56 mL/min Normal 60-69 YRS: >49 mL/min Normal 70-79 YRS: >42 mL/min Normal 80 and above >35 mL/min Normal FEMALE GRF INTERPRETATION: 20-39 YRS: >60 mL/min Normal 40-49 YRS: >58 mL/min Normal 50-59 YRS: >51 mL/min Normal 60-69 YRS: >45 mL/min Normal 70-79 YRS: >39 mL/min Normal 80 and above >32 mL/min NormalCLASSIFICATION CHOLESTEROL FOR ADULTS CHILDREN/ADOLESCENTS* DESIRABLE: <200 MG/DL <170 MG/DL BORDER-LINE HIGH RISK: 200-239 MG/DL 170-199 MG/DL HIGH RISK: >240 MG/DL >200 MG/DL CLASS. FOR PRIMARY LDL CHOL PREVENTION: LDL CHOL-CHILD/ADOLESCENTS* DESIRABLE: <130 MG/DL <110 MG/DL BORDERLINE-HIGH RISK: 130- 159 MG/DL 110-129 MG/DL HIGH RISK: >160 MG/DL >130 MG/DL *CHILDREN AND ADOLESCENTS REPRESENTS INDIVIDUALA AGED 2-19 YEARS EXCLUSIVE. Cholesterol in HDL [Mass/volume] in Serum or Plasma 66 mg/dL 45-65 Above high normal [facility] ([facility] NORMAL RANGES Age WBC RBC HGB HCT MCV PLT Adult M 4.1-10.9 4.20-6.30 12.0-18.0 37.0-51.0 80-97 140-440 Adult F 4.1-10.9 4.04-5.48 12.0-18.0 37.0-51.0 80-97 140-440 0 -1 Yr 5.0-20.0 3.9-5.9 15-18 MV: 44 MV: 91 MV: 277 2-9 Yr. 6.0-17.0 3.8-5.4 11-13 MV: 37 MV: 78 MV: 300 10 Yrs. 5.0-13.0 3.8-5.4 12-15 MV: 39 MV: 80 MV: 250 NOTE: * FOR ADULT BLACK MALES AND FEMALES, NORMAL WBC IS 2.9-7.7 K/ML * FOR ADULT BLACK MALES AND FEMALES, NORMAL RBC,HGB, AND HCT IS 5% LESS SOURCE FOR DATA: [employer] 1800 OPERATION MANUAL( AUTOMATED BLOOD COUNTS AND DIFF.) APPENDIX B-3 CHRONIC KIDNEY DISEASE STAGING PER NKF: MALE GFR INTERPRETATION: 20-49 YRS: >60 mL/min Normal 50-59 YRS: >56 mL/min Normal 60-69 YRS: >49 mL/min Normal 70-79 YRS: >42 mL/min Normal 80 and above >35 mL/min Normal FEMALE GRF INTERPRETATION: 20-39 YRS: >60 mL/min Normal 40-49 YRS: >58 mL/min Normal 50-59 YRS: >51 mL/min Normal 60-69 YRS: >45 mL/min Normal 70-79 YRS: >39 mL/min Normal 80 and above >32 mL/min NormalCLASSIFICATION CHOLESTEROL FOR ADULTS CHILDREN/ADOLESCENTS* DESIRABLE: <200 MG/DL <170 MG/DL BORDER-LINE HIGH RISK: 200-239 MG/DL 170-199 MG/DL HIGH RISK: >240 MG/DL >200 MG/DL CLASS. FOR PRIMARY LDL CHOL PREVENTION: LDL CHOL-CHILD/ADOLESCENTS* DESIRABLE: <130 MG/DL <110 MG/DL BORDERLINE-HIGH RISK: 130- 159 MG/DL 110-129 MG/DL HIGH RISK: >160 MG/DL >130 MG/DL *CHILDREN AND ADOLESCENTS REPRESENTS INDIVIDUALA AGED 2-19 YEARS EXCLUSIVE. Trig 124 mg/dL 40-200 [facility] ([facility] NORMAL RANGES Age WBC RBC HGB HCT MCV PLT Adult M 4.1-10.9 4.20-6.30 12.0-18.0 37.0-51.0 80-97 140-440 Adult F 4.1-10.9 4.04-5.48 12.0-18.0 37.0-51.0 80-97 140-440 0 -1 Yr 5.0-20.0 3.9-5.9 15-18 MV: 44 MV: 91 MV: 277 2-9 Yr. 6.0-17.0 3.8-5.4 11-13 MV: 37 MV: 78 MV: 300 10 Yrs. 5.0-13.0 3.8-5.4 12-15 MV: 39 MV: 80 MV: 250 NOTE: * FOR ADULT BLACK MALES AND FEMALES, NORMAL WBC IS 2.9-7.7 K/ML * FOR ADULT BLACK MALES AND FEMALES, NORMAL RBC,HGB, AND HCT IS 5% LESS SOURCE FOR DATA: [employer] 1800 OPERATION MANUAL( AUTOMATED BLOOD COUNTS AND DIFF.) APPENDIX B-3 CHRONIC KIDNEY DISEASE STAGING PER NKF: MALE GFR INTERPRETATION: 20-49 YRS: >60 mL/min Normal 50-59 YRS: >56 mL/min Normal 60-69 YRS: >49 mL/min Normal 70-79 YRS: >42 mL/min Normal 80 and above >35 mL/min Normal FEMALE GRF INTERPRETATION: 20-39 YRS: >60 mL/min Normal 40-49 YRS: >58 mL/min Normal 50-59 YRS: >51 mL/min Normal 60-69 YRS: >45 mL/min Normal 70-79 YRS: >39 mL/min Normal 80 and above >32 mL/min NormalCLASSIFICATION CHOLESTEROL FOR ADULTS CHILDREN/ADOLESCENTS* DESIRABLE: <200 MG/DL <170 MG/DL BORDER-LINE HIGH RISK: 200-239 MG/DL 170-199 MG/DL HIGH RISK: >240 MG/DL >200 MG/DL CLASS. FOR PRIMARY LDL CHOL PREVENTION: LDL CHOL-CHILD/ADOLESCENTS* DESIRABLE: <130 MG/DL <110 MG/DL BORDERLINE-HIGH RISK: 130- 159 MG/DL 110-129 MG/DL HIGH RISK: >160 MG/DL >130 MG/DL *CHILDREN AND ADOLESCENTS REPRESENTS INDIVIDUALA AGED 2-19 YEARS EXCLUSIVE. Cho/HDL Ratio 3.0 Calc [employer] ([facility] NORMAL RANGES Age WBC RBC HGB HCT MCV PLT Adult M 4.1-10.9 4.20-6.30 12.0-18.0 37.0-51.0 80-97 140-440 Adult F 4.1-10.9 4.04-5.48 12.0-18.0 37.0-51.0 80-97 140-440 0 -1 Yr 5.0-20.0 3.9-5.9 15-18 MV: 44 MV: 91 MV: 277 2-9 Yr. 6.0-17.0 3.8-5.4 11-13 MV: 37 MV: 78 MV: 300 10 Yrs. 5.0-13.0 3.8-5.4 12-15 MV: 39 MV: 80 MV: 250 NOTE: * FOR ADULT BLACK MALES AND FEMALES, NORMAL WBC IS 2.9-7.7 K/ML * FOR ADULT BLACK MALES AND FEMALES, NORMAL RBC,HGB, AND HCT IS 5% LESS SOURCE FOR DATA: [employer] 1800 OPERATION MANUAL( AUTOMATED BLOOD COUNTS AND DIFF.) APPENDIX B-3 CHRONIC KIDNEY DISEASE STAGING PER NKF: MALE GFR INTERPRETATION: 20-49 YRS: >60 mL/min Normal 50-59 YRS: >56 mL/min Normal 60-69 YRS: >49 mL/min Normal 70-79 YRS: >42 mL/min Normal 80 and above >35 mL/min Normal FEMALE GRF INTERPRETATION: 20-39 YRS: >60 mL/min Normal 40-49 YRS: >58 mL/min Normal 50-59 YRS: >51 mL/min Normal 60-69 YRS: >45 mL/min Normal 70-79 YRS: >39 mL/min Normal 80 and above >32 mL/min NormalCLASSIFICATION CHOLESTEROL FOR ADULTS CHILDREN/ADOLESCENTS* DESIRABLE: <200 MG/DL <170 MG/DL BORDER-LINE HIGH RISK: 200-239 MG/DL 170-199 MG/DL HIGH RISK: >240 MG/DL >200 MG/DL CLASS. FOR PRIMARY LDL CHOL PREVENTION: LDL CHOL-CHILD/ADOLESCENTS* DESIRABLE: <130 MG/DL <110 MG/DL BORDERLINE-HIGH RISK: 130- 159 MG/DL 110-129 MG/DL HIGH RISK: >160 MG/DL >130 MG/DL *CHILDREN AND ADOLESCENTS REPRESENTS INDIVIDUALA AGED 2-19 YEARS EXCLUSIVE. LDL_C 105 Calc 75-129 [facility] ([facility] NORMAL RANGES Age WBC RBC HGB HCT MCV PLT Adult M 4.1-10.9 4.20-6.30 12.0-18.0 37.0-51.0 80-97 140-440 Adult F 4.1-10.9 4.04-5.48 12.0-18.0 37.0-51.0 80-97 140-440 0 -1 Yr 5.0-20.0 3.9-5.9 15-18 MV: 44 MV: 91 MV: 277 2-9 Yr. 6.0-17.0 3.8-5.4 11-13 MV: 37 MV: 78 MV: 300 10 Yrs. 5.0-13.0 3.8-5.4 12-15 MV: 39 MV: 80 MV: 250 NOTE: * FOR ADULT BLACK MALES AND FEMALES, NORMAL WBC IS 2.9-7.7 K/ML * FOR ADULT BLACK MALES AND FEMALES, NORMAL RBC,HGB, AND HCT IS 5% LESS SOURCE FOR DATA: [employer] 1800 OPERATION MANUAL( AUTOMATED BLOOD COUNTS AND DIFF.) APPENDIX B-3 CHRONIC KIDNEY DISEASE STAGING PER NKF: MALE GFR INTERPRETATION: 20-49 YRS: >60 mL/min Normal 50-59 YRS: >56 mL/min Normal 60-69 YRS: >49 mL/min Normal 70-79 YRS: >42 mL/min Normal 80 and above >35 mL/min Normal FEMALE GRF INTERPRETATION: 20-39 YRS: >60 mL/min Normal 40-49 YRS: >58 mL/min Normal 50-59 YRS: >51 mL/min Normal 60-69 YRS: >45 mL/min Normal 70-79 YRS: >39 mL/min Normal 80 and above >32 mL/min NormalCLASSIFICATION CHOLESTEROL FOR ADULTS CHILDREN/ADOLESCENTS* DESIRABLE: <200 MG/DL <170 MG/DL BORDER-LINE HIGH RISK: 200-239 MG/DL 170-199 MG/DL HIGH RISK: >240 MG/DL >200 MG/DL CLASS. FOR PRIMARY LDL CHOL PREVENTION: LDL CHOL-CHILD/ADOLESCENTS* DESIRABLE: <130 MG/DL <110 MG/DL BORDERLINE-HIGH RISK: 130- 159 MG/DL 110-129 MG/DL HIGH RISK: >160 MG/DL >130 MG/DL *CHILDREN AND ADOLESCENTS REPRESENTS INDIVIDUALA AGED 2-19 YEARS EXCLUSIVE. ID Date Data Source [id number] 03/12/2020 08:49:00 AM EST [facility] ([facility] Name Value Range Interpretation Code Description Data Deepa rce(s) Supporting Document(s) BUN 14 mg/dL 8- [facility] ([facility] NORMAL RANGES Age WBC RBC HGB HCT MCV PLT Adult M 4.1-10.9 4.20-6.30 12.0-18.0 37.0-51.0 80-97 140-440 Adult F 4.1-10.9 4.04-5.48 12.0-18.0 37.0-51.0 80-97 140-440 0 -1 Yr 5.0-20.0 3.9-5.9 15-18 MV: 44 MV: 91 MV: 277 2-9 Yr. 6.0-17.0 3.8-5.4 11-13 MV: 37 MV: 78 MV: 300 10 Yrs. 5.0-13.0 3.8-5.4 12-15 MV: 39 MV: 80 MV: 250 NOTE: * FOR ADULT BLACK MALES AND FEMALES, NORMAL WBC IS 2.9-7.7 K/ML * FOR ADULT BLACK MALES AND FEMALES, NORMAL RBC,HGB, AND HCT IS 5% LESS SOURCE FOR DATA: [employer] 1800 [employer] MANUAL( AUTOMATED BLOOD COUNTS AND DIFF.) APPENDIX B-3 CHRONIC KIDNEY DISEASE STAGING PER NKF: MALE GFR INTERPRETATION: 20-49 YRS: >60 mL/min Normal 50-59 YRS: >56 mL/min Normal 60-69 YRS: >49 mL/min Normal 70-79 YRS: >42 mL/min Normal 80 and above >35 mL/min Normal FEMALE GRF INTERPRETATION: 20-39 YRS: >60 mL/min Normal 40-49 YRS: >58 mL/min Normal 50-59 YRS: >51 mL/min Normal 60-69 YRS: >45 mL/min Normal 70-79 YRS: >39 mL/min Normal 80 and above >32 mL/min NormalCLASSIFICATION CHOLESTEROL FOR ADULTS CHILDREN/ADOLESCENTS* DESIRABLE: <200 MG/DL <170 MG/DL BORDER-LINE HIGH RISK: 200-239 MG/DL 170-199 MG/DL HIGH RISK: >240 MG/DL >200 MG/DL CLASS. FOR PRIMARY LDL CHOL PREVENTION: LDL CHOL-CHILD/ADOLESCENTS* DESIRABLE: <130 MG/DL <110 MG/DL BORDERLINE-HIGH RISK: 130- 159 MG/DL 110-129 MG/DL HIGH RISK: >160 MG/DL >130 MG/DL *CHILDREN AND ADOLESCENTS REPRESENTS INDIVIDUALA AGED 2-19 YEARS EXCLUSIVE. Glu 106 mg/dL 70-110 [facility] NORMAL RANGES Age WBC RBC HGB HCT MCV PLT Adult M 4.1-10.9 4.20-6.30 12.0-18.0 37.0-51.0 80-97 140-440 Adult F 4.1-10.9 4.04-5.48 12.0-18.0 37.0-51.0 80-97 140-440 0 -1 Yr 5.0-20.0 3.9-5.9 15-18 MV: 44 MV: 91 MV: 277 2-9 Yr. 6.0-17.0 3.8-5.4 11-13 MV: 37 MV: 78 MV: 300 10 Yrs. 5.0-13.0 3.8-5.4 12-15 MV: 39 MV: 80 MV: 250 NOTE: * FOR ADULT BLACK MALES AND FEMALES, NORMAL WBC IS 2.9-7.7 K/ML * FOR ADULT BLACK MALES AND FEMALES, NORMAL RBC,HGB, AND HCT IS 5% LESS SOURCE FOR DATA: [employer] 1800 OPERATION MANUAL( AUTOMATED BLOOD COUNTS AND DIFF.) APPENDIX B-3 CHRONIC KIDNEY DISEASE STAGING PER NKF: MALE GFR INTERPRETATION: 20-49 YRS: >60 mL/min Normal 50-59 YRS: >56 mL/min Normal 60-69 YRS: >49 mL/min Normal 70-79 YRS: >42 mL/min Normal 80 and above >35 mL/min Normal FEMALE GRF INTERPRETATION: 20-39 YRS: >60 mL/min Normal 40-49 YRS: >58 mL/min Normal 50-59 YRS: >51 mL/min Normal 60-69 YRS: >45 mL/min Normal 70-79 YRS: >39 mL/min Normal 80 and above >32 mL/min NormalCLASSIFICATION CHOLESTEROL FOR ADULTS CHILDREN/ADOLESCENTS* DESIRABLE: <200 MG/DL <170 MG/DL BORDER-LINE HIGH RISK: 200-239 MG/DL 170-199 MG/DL HIGH RISK: >240 MG/DL >200 MG/DL CLASS. FOR PRIMARY LDL CHOL PREVENTION: LDL CHOL-CHILD/ADOLESCENTS* DESIRABLE: <130 MG/DL <110 MG/DL BORDERLINE-HIGH RISK: 130- 159 MG/DL 110-129 MG/DL HIGH RISK: >160 MG/DL >130 MG/DL *CHILDREN AND ADOLESCENTS REPRESENTS INDIVIDUALA AGED 2-19 YEARS EXCLUSIVE. BUN/Creatinine Ratio 22.7 CALC [facility] ([facility] NORMAL RANGES Age WBC RBC HGB HCT MCV PLT Adult M 4.1-10.9 4.20-6.30 12.0-18.0 37.0-51.0 80-97 140-440 Adult F 4.1-10.9 4.04-5.48 12.0-18.0 37.0-51.0 80-97 140-440 0 -1 Yr 5.0-20.0 3.9-5.9 15-18 MV: 44 MV: 91 MV: 277 2-9 Yr. 6.0-17.0 3.8-5.4 11-13 MV: 37 MV: 78 MV: 300 10 Yrs. 5.0-13.0 3.8-5.4 12-15 MV: 39 MV: 80 MV: 250 NOTE: * FOR ADULT BLACK MALES AND FEMALES, NORMAL WBC IS 2.9-7.7 K/ML * FOR ADULT BLACK MALES AND FEMALES, NORMAL RBC,HGB, AND HCT IS 5% LESS SOURCE FOR DATA: [employer] 1800 OPERATION MANUAL( AUTOMATED BLOOD COUNTS AND DIFF.) APPENDIX B-3 CHRONIC KIDNEY DISEASE STAGING PER NKF: MALE GFR INTERPRETATION: 20-49 YRS: >60 mL/min Normal 50-59 YRS: >56 mL/min Normal 60-69 YRS: >49 mL/min Normal 70-79 YRS: >42 mL/min Normal 80 and above >35 mL/min Normal FEMALE GRF INTERPRETATION: 20-39 YRS: >60 mL/min Normal 40-49 YRS: >58 mL/min Normal 50-59 YRS: >51 mL/min Normal 60-69 YRS: >45 mL/min Normal 70-79 YRS: >39 mL/min Normal 80 and above >32 mL/min NormalCLASSIFICATION CHOLESTEROL FOR ADULTS CHILDREN/ADOLESCENTS* DESIRABLE: <200 MG/DL <170 MG/DL BORDER-LINE HIGH RISK: 200-239 MG/DL 170-199 MG/DL HIGH RISK: >240 MG/DL >200 MG/DL CLASS. FOR PRIMARY LDL CHOL PREVENTION: LDL CHOL-CHILD/ADOLESCENTS* DESIRABLE: <130 MG/DL <110 MG/DL BORDERLINE-HIGH RISK: 130- 159 MG/DL 110-129 MG/DL HIGH RISK: >160 MG/DL >130 MG/DL *CHILDREN AND ADOLESCENTS REPRESENTS INDIVIDUALA AGED 2-19 YEARS EXCLUSIVE. Creat 0.6 mg/dL 0.5-1.0 [facility] ([facility] NORMAL RANGES Age WBC RBC HGB HCT MCV PLT Adult M 4.1-10.9 4.20-6.30 12.0-18.0 37.0-51.0 80-97 140-440 Adult F 4.1-10.9 4.04-5.48 12.0-18.0 37.0-51.0 80-97 140-440 0 -1 Yr 5.0-20.0 3.9-5.9 15-18 MV: 44 MV: 91 MV: 277 2-9 Yr. 6.0-17.0 3.8-5.4 11-13 MV: 37 MV: 78 MV: 300 10 Yrs. 5.0-13.0 3.8-5.4 12-15 MV: 39 MV: 80 MV: 250 NOTE: * FOR ADULT BLACK MALES AND FEMALES, NORMAL WBC IS 2.9-7.7 K/ML * FOR ADULT BLACK MALES AND FEMALES, NORMAL RBC,HGB, AND HCT IS 5% LESS SOURCE FOR DATA: [employer] 1800 OPERATION MANUAL( AUTOMATED BLOOD COUNTS AND DIFF.) APPENDIX B-3 CHRONIC KIDNEY DISEASE STAGING PER NKF: MALE GFR INTERPRETATION: 20-49 YRS: >60 mL/min Normal 50-59 YRS: >56 mL/min Normal 60-69 YRS: >49 mL/min Normal 70-79 YRS: >42 mL/min Normal 80 and above >35 mL/min Normal FEMALE GRF INTERPRETATION: 20-39 YRS: >60 mL/min Normal 40-49 YRS: >58 mL/min Normal 50-59 YRS: >51 mL/min Normal 60-69 YRS: >45 mL/min Normal 70-79 YRS: >39 mL/min Normal 80 and above >32 mL/min NormalCLASSIFICATION CHOLESTEROL FOR ADULTS CHILDREN/ADOLESCENTS* DESIRABLE: <200 MG/DL <170 MG/DL BORDER-LINE HIGH RISK: 200-239 MG/DL 170-199 MG/DL HIGH RISK: >240 MG/DL >200 MG/DL CLASS. FOR PRIMARY LDL CHOL PREVENTION: LDL CHOL-CHILD/ADOLESCENTS* DESIRABLE: <130 MG/DL <110 MG/DL BORDERLINE-HIGH RISK: 130- 159 MG/DL 110-129 MG/DL HIGH RISK: >160 MG/DL >130 MG/DL *CHILDREN AND ADOLESCENTS REPRESENTS INDIVIDUALA AGED 2-19 YEARS EXCLUSIVE. Na 139 mmol/L 136-145 [facility] ([facility] NORMAL RANGES Age WBC RBC HGB HCT MCV PLT Adult M 4.1-10.9 4.20-6.30 12.0-18.0 37.0-51.0 80-97 140-440 Adult F 4.1-10.9 4.04-5.48 12.0-18.0 37.0-51.0 80-97 140-440 0 -1 Yr 5.0-20.0 3.9-5.9 15-18 MV: 44 MV: 91 MV: 277 2-9 Yr. 6.0-17.0 3.8-5.4 11-13 MV: 37 MV: 78 MV: 300 10 Yrs. 5.0-13.0 3.8-5.4 12-15 MV: 39 MV: 80 MV: 250 NOTE: * FOR ADULT BLACK MALES AND FEMALES, NORMAL WBC IS 2.9-7.7 K/ML * FOR ADULT BLACK MALES AND FEMALES, NORMAL RBC,HGB, AND HCT IS 5% LESS SOURCE FOR DATA: [employer] 1800 OPERATION MANUAL( AUTOMATED BLOOD COUNTS AND DIFF.) APPENDIX B-3 CHRONIC KIDNEY DISEASE STAGING PER NKF: MALE GFR INTERPRETATION: 20-49 YRS: >60 mL/min Normal 50-59 YRS: >56 mL/min Normal 60-69 YRS: >49 mL/min Normal 70-79 YRS: >42 mL/min Normal 80 and above >35 mL/min Normal FEMALE GRF INTERPRETATION: 20-39 YRS: >60 mL/min Normal 40-49 YRS: >58 mL/min Normal 50-59 YRS: >51 mL/min Normal 60-69 YRS: >45 mL/min Normal 70-79 YRS: >39 mL/min Normal 80 and above >32 mL/min NormalCLASSIFICATION CHOLESTEROL FOR ADULTS CHILDREN/ADOLESCENTS* DESIRABLE: <200 MG/DL <170 MG/DL BORDER-LINE HIGH RISK: 200-239 MG/DL 170-199 MG/DL HIGH RISK: >240 MG/DL >200 MG/DL CLASS. FOR PRIMARY LDL CHOL PREVENTION: LDL CHOL-CHILD/ADOLESCENTS* DESIRABLE: <130 MG/DL <110 MG/DL BORDERLINE-HIGH RISK: 130- 159 MG/DL 110-129 MG/DL HIGH RISK: >160 MG/DL >130 MG/DL *CHILDREN AND ADOLESCENTS REPRESENTS INDIVIDUALA AGED 2-19 YEARS EXCLUSIVE. CL 102.9 mmol/L 98.0-107.0 [facility] ([facility] NORMAL RANGES Age WBC RBC HGB HCT MCV PLT Adult M 4.1-10.9 4.20-6.30 12.0-18.0 37.0-51.0 80-97 140-440 Adult F 4.1-10.9 4.04-5.48 12.0-18.0 37.0-51.0 80-97 140-440 0 -1 Yr 5.0-20.0 3.9-5.9 15-18 MV: 44 MV: 91 MV: 277 2-9 Yr. 6.0-17.0 3.8-5.4 11-13 MV: 37 MV: 78 MV: 300 10 Yrs. 5.0-13.0 3.8-5.4 12-15 MV: 39 MV: 80 MV: 250 NOTE: * FOR ADULT BLACK MALES AND FEMALES, NORMAL WBC IS 2.9-7.7 K/ML * FOR ADULT BLACK MALES AND FEMALES, NORMAL RBC,HGB, AND HCT IS 5% LESS SOURCE FOR DATA: [employer] 1800 OPERATION MANUAL( AUTOMATED BLOOD COUNTS AND DIFF.) APPENDIX B-3 CHRONIC KIDNEY DISEASE STAGING PER NKF: MALE GFR INTERPRETATION: 20-49 YRS: >60 mL/min Normal 50-59 YRS: >56 mL/min Normal 60-69 YRS: >49 mL/min Normal 70-79 YRS: >42 mL/min Normal 80 and above >35 mL/min Normal FEMALE GRF INTERPRETATION: 20-39 YRS: >60 mL/min Normal 40-49 YRS: >58 mL/min Normal 50-59 YRS: >51 mL/min Normal 60-69 YRS: >45 mL/min Normal 70-79 YRS: >39 mL/min Normal 80 and above >32 mL/min NormalCLASSIFICATION CHOLESTEROL FOR ADULTS CHILDREN/ADOLESCENTS* DESIRABLE: <200 MG/DL <170 MG/DL BORDER-LINE HIGH RISK: 200-239 MG/DL 170-199 MG/DL HIGH RISK: >240 MG/DL >200 MG/DL CLASS. FOR PRIMARY LDL CHOL PREVENTION: LDL CHOL-CHILD/ADOLESCENTS* DESIRABLE: <130 MG/DL <110 MG/DL BORDERLINE-HIGH RISK: 130- 159 MG/DL 110-129 MG/DL HIGH RISK: >160 MG/DL >130 MG/DL *CHILDREN AND ADOLESCENTS REPRESENTS INDIVIDUALA AGED 2-19 YEARS EXCLUSIVE. K 4.5 mmol/L 3.5-5.1 [facility] NORMAL RANGES Age WBC RBC HGB HCT MCV PLT Adult M 4.1-10.9 4.20-6.30 12.0-18.0 37.0-51.0 80-97 140-440 Adult F 4.1-10.9 4.04-5.48 12.0-18.0 37.0-51.0 80-97 140-440 0 -1 Yr 5.0-20.0 3.9-5.9 15-18 MV: 44 MV: 91 MV: 277 2-9 Yr. 6.0-17.0 3.8-5.4 11-13 MV: 37 MV: 78 MV: 300 10 Yrs. 5.0-13.0 3.8-5.4 12-15 MV: 39 MV: 80 MV: 250 NOTE: * FOR ADULT BLACK MALES AND FEMALES, NORMAL WBC IS 2.9-7.7 K/ML * FOR ADULT BLACK MALES AND FEMALES, NORMAL RBC,HGB, AND HCT IS 5% LESS SOURCE FOR DATA: [employer] 1800 OPERATION MANUAL( AUTOMATED BLOOD COUNTS AND DIFF.) APPENDIX B-3 CHRONIC KIDNEY DISEASE STAGING PER NKF: MALE GFR INTERPRETATION: 20-49 YRS: >60 mL/min Normal 50-59 YRS: >56 mL/min Normal 60-69 YRS: >49 mL/min Normal 70-79 YRS: >42 mL/min Normal 80 and above >35 mL/min Normal FEMALE GRF INTERPRETATION: 20-39 YRS: >60 mL/min Normal 40-49 YRS: >58 mL/min Normal 50-59 YRS: >51 mL/min Normal 60-69 YRS: >45 mL/min Normal 70-79 YRS: >39 mL/min Normal 80 and above >32 mL/min NormalCLASSIFICATION CHOLESTEROL FOR ADULTS CHILDREN/ADOLESCENTS* DESIRABLE: <200 MG/DL <170 MG/DL BORDER-LINE HIGH RISK: 200-239 MG/DL 170-199 MG/DL HIGH RISK: >240 MG/DL >200 MG/DL CLASS. FOR PRIMARY LDL CHOL PREVENTION: LDL CHOL-CHILD/ADOLESCENTS* DESIRABLE: <130 MG/DL <110 MG/DL BORDERLINE-HIGH RISK: 130- 159 MG/DL 110-129 MG/DL HIGH RISK: >160 MG/DL >130 MG/DL *CHILDREN AND ADOLESCENTS REPRESENTS INDIVIDUALA AGED 2-19 YEARS EXCLUSIVE. CA 11.4 mg/dL 8.6-10.2 Above high normal [facility] ([facility] NORMAL RANGES Age WBC RBC HGB HCT MCV PLT Adult M 4.1-10.9 4.20-6.30 12.0-18.0 37.0-51.0 80-97 140-440 Adult F 4.1-10.9 4.04-5.48 12.0-18.0 37.0-51.0 80-97 140-440 0 -1 Yr 5.0-20.0 3.9-5.9 15-18 MV: 44 MV: 91 MV: 277 2-9 Yr. 6.0-17.0 3.8-5.4 11-13 MV: 37 MV: 78 MV: 300 10 Yrs. 5.0-13.0 3.8-5.4 12-15 MV: 39 MV: 80 MV: 250 NOTE: * FOR ADULT BLACK MALES AND FEMALES, NORMAL WBC IS 2.9-7.7 K/ML * FOR ADULT BLACK MALES AND FEMALES, NORMAL RBC,HGB, AND HCT IS 5% LESS SOURCE FOR DATA: [employer] 1800 OPERATION MANUAL( AUTOMATED BLOOD COUNTS AND DIFF.) APPENDIX B-3 CHRONIC KIDNEY DISEASE STAGING PER NKF: MALE GFR INTERPRETATION: 20-49 YRS: >60 mL/min Normal 50-59 YRS: >56 mL/min Normal 60-69 YRS: >49 mL/min Normal 70-79 YRS: >42 mL/min Normal 80 and above >35 mL/min Normal FEMALE GRF INTERPRETATION: 20-39 YRS: >60 mL/min Normal 40-49 YRS: >58 mL/min Normal 50-59 YRS: >51 mL/min Normal 60-69 YRS: >45 mL/min Normal 70-79 YRS: >39 mL/min Normal 80 and above >32 mL/min NormalCLASSIFICATION CHOLESTEROL FOR ADULTS CHILDREN/ADOLESCENTS* DESIRABLE: <200 MG/DL <170 MG/DL BORDER-LINE HIGH RISK: 200-239 MG/DL 170-199 MG/DL HIGH RISK: >240 MG/DL >200 MG/DL CLASS. FOR PRIMARY LDL CHOL PREVENTION: LDL CHOL-CHILD/ADOLESCENTS* DESIRABLE: <130 MG/DL <110 MG/DL BORDERLINE-HIGH RISK: 130- 159 MG/DL 110-129 MG/DL HIGH RISK: >160 MG/DL >130 MG/DL *CHILDREN AND ADOLESCENTS REPRESENTS INDIVIDUALA AGED 2-19 YEARS EXCLUSIVE. Co2 27.2 mmol/L 22.0-29.0 [facility] ([facility] NORMAL RANGES Age WBC RBC HGB HCT MCV PLT Adult M 4.1-10.9 4.20-6.30 12.0-18.0 37.0-51.0 80-97 140-440 Adult F 4.1-10.9 4.04-5.48 12.0-18.0 37.0-51.0 80-97 140-440 0 -1 Yr 5.0-20.0 3.9-5.9 15-18 MV: 44 MV: 91 MV: 277 2-9 Yr. 6.0-17.0 3.8-5.4 11-13 MV: 37 MV: 78 MV: 300 10 Yrs. 5.0-13.0 3.8-5.4 12-15 MV: 39 MV: 80 MV: 250 NOTE: * FOR ADULT BLACK MALES AND FEMALES, NORMAL WBC IS 2.9-7.7 K/ML * FOR ADULT BLACK MALES AND FEMALES, NORMAL RBC,HGB, AND HCT IS 5% LESS SOURCE FOR DATA: [employer] 1800 OPERATION MANUAL( AUTOMATED BLOOD COUNTS AND DIFF.) APPENDIX B-3 CHRONIC KIDNEY DISEASE STAGING PER NKF: MALE GFR INTERPRETATION: 20-49 YRS: >60 mL/min Normal 50-59 YRS: >56 mL/min Normal 60-69 YRS: >49 mL/min Normal 70-79 YRS: >42 mL/min Normal 80 and above >35 mL/min Normal FEMALE GRF INTERPRETATION: 20-39 YRS: >60 mL/min Normal 40-49 YRS: >58 mL/min Normal 50-59 YRS: >51 mL/min Normal 60-69 YRS: >45 mL/min Normal 70-79 YRS: >39 mL/min Normal 80 and above >32 mL/min NormalCLASSIFICATION CHOLESTEROL FOR ADULTS CHILDREN/ADOLESCENTS* DESIRABLE: <200 MG/DL <170 MG/DL BORDER-LINE HIGH RISK: 200-239 MG/DL 170-199 MG/DL HIGH RISK: >240 MG/DL >200 MG/DL CLASS. FOR PRIMARY LDL CHOL PREVENTION: LDL CHOL-CHILD/ADOLESCENTS* DESIRABLE: <130 MG/DL <110 MG/DL BORDERLINE-HIGH RISK: 130- 159 MG/DL 110-129 MG/DL HIGH RISK: >160 MG/DL >130 MG/DL *CHILDREN AND ADOLESCENTS REPRESENTS INDIVIDUALA AGED 2-19 YEARS EXCLUSIVE. TP 6.8 g/dL 6.6-8.7 [facility] ([facility] NORMAL RANGES Age WBC RBC HGB HCT MCV PLT Adult M 4.1-10.9 4.20-6.30 12.0-18.0 37.0-51.0 80-97 140-440 Adult F 4.1-10.9 4.04-5.48 12.0-18.0 37.0-51.0 80-97 140-440 0 -1 Yr 5.0-20.0 3.9-5.9 15-18 MV: 44 MV: 91 MV: 277 2-9 Yr. 6.0-17.0 3.8-5.4 11-13 MV: 37 MV: 78 MV: 300 10 Yrs. 5.0-13.0 3.8-5.4 12-15 MV: 39 MV: 80 MV: 250 NOTE: * FOR ADULT BLACK MALES AND FEMALES, NORMAL WBC IS 2.9-7.7 K/ML * FOR ADULT BLACK MALES AND FEMALES, NORMAL RBC,HGB, AND HCT IS 5% LESS SOURCE FOR DATA: [employer] 1800 OPERATION MANUAL( AUTOMATED BLOOD COUNTS AND DIFF.) APPENDIX B-3 CHRONIC KIDNEY DISEASE STAGING PER NKF: MALE GFR INTERPRETATION: 20-49 YRS: >60 mL/min Normal 50-59 YRS: >56 mL/min Normal 60-69 YRS: >49 mL/min Normal 70-79 YRS: >42 mL/min Normal 80 and above >35 mL/min Normal FEMALE GRF INTERPRETATION: 20-39 YRS: >60 mL/min Normal 40-49 YRS: >58 mL/min Normal 50-59 YRS: >51 mL/min Normal 60-69 YRS: >45 mL/min Normal 70-79 YRS: >39 mL/min Normal 80 and above >32 mL/min NormalCLASSIFICATION CHOLESTEROL FOR ADULTS CHILDREN/ADOLESCENTS* DESIRABLE: <200 MG/DL <170 MG/DL BORDER-LINE HIGH RISK: 200-239 MG/DL 170-199 MG/DL HIGH RISK: >240 MG/DL >200 MG/DL CLASS. FOR PRIMARY LDL CHOL PREVENTION: LDL CHOL-CHILD/ADOLESCENTS* DESIRABLE: <130 MG/DL <110 MG/DL BORDERLINE-HIGH RISK: 130- 159 MG/DL 110-129 MG/DL HIGH RISK: >160 MG/DL >130 MG/DL *CHILDREN AND ADOLESCENTS REPRESENTS INDIVIDUALA AGED 2-19 YEARS EXCLUSIVE. Globulin 2.6 CALC [facility] NORMAL RANGES Age WBC RBC HGB HCT MCV PLT Adult M 4.1-10.9 4.20-6.30 12.0-18.0 37.0-51.0 80-97 140-440 Adult F 4.1-10.9 4.04-5.48 12.0-18.0 37.0-51.0 80-97 140-440 0 -1 Yr 5.0-20.0 3.9-5.9 15-18 MV: 44 MV: 91 MV: 277 2-9 Yr. 6.0-17.0 3.8-5.4 11-13 MV: 37 MV: 78 MV: 300 10 Yrs. 5.0-13.0 3.8-5.4 12-15 MV: 39 MV: 80 MV: 250 NOTE: * FOR ADULT BLACK MALES AND FEMALES, NORMAL WBC IS 2.9-7.7 K/ML * FOR ADULT BLACK MALES AND FEMALES, NORMAL RBC,HGB, AND HCT IS 5% LESS SOURCE FOR DATA: [employer] 1800 OPERATION MANUAL( AUTOMATED BLOOD COUNTS AND DIFF.) APPENDIX B-3 CHRONIC KIDNEY DISEASE STAGING PER NKF: MALE GFR INTERPRETATION: 20-49 YRS: >60 mL/min Normal 50-59 YRS: >56 mL/min Normal 60-69 YRS: >49 mL/min Normal 70-79 YRS: >42 mL/min Normal 80 and above >35 mL/min Normal FEMALE GRF INTERPRETATION: 20-39 YRS: >60 mL/min Normal 40-49 YRS: >58 mL/min Normal 50-59 YRS: >51 mL/min Normal 60-69 YRS: >45 mL/min Normal 70-79 YRS: >39 mL/min Normal 80 and above >32 mL/min NormalCLASSIFICATION CHOLESTEROL FOR ADULTS CHILDREN/ADOLESCENTS* DESIRABLE: <200 MG/DL <170 MG/DL BORDER-LINE HIGH RISK: 200-239 MG/DL 170-199 MG/DL HIGH RISK: >240 MG/DL >200 MG/DL CLASS. FOR PRIMARY LDL CHOL PREVENTION: LDL CHOL-CHILD/ADOLESCENTS* DESIRABLE: <130 MG/DL <110 MG/DL BORDERLINE-HIGH RISK: 130- 159 MG/DL 110-129 MG/DL HIGH RISK: >160 MG/DL >130 MG/DL *CHILDREN AND ADOLESCENTS REPRESENTS INDIVIDUALA AGED 2-19 YEARS EXCLUSIVE. A/G Ratio 1.6 CALC [facility] NORMAL RANGES Age WBC RBC HGB HCT MCV PLT Adult M 4.1-10.9 4.20-6.30 12.0-18.0 37.0-51.0 80-97 140-440 Adult F 4.1-10.9 4.04-5.48 12.0-18.0 37.0-51.0 80-97 140-440 0 -1 Yr 5.0-20.0 3.9-5.9 15-18 MV: 44 MV: 91 MV: 277 2-9 Yr. 6.0-17.0 3.8-5.4 11-13 MV: 37 MV: 78 MV: 300 10 Yrs. 5.0-13.0 3.8-5.4 12-15 MV: 39 MV: 80 MV: 250 NOTE: * FOR ADULT BLACK MALES AND FEMALES, NORMAL WBC IS 2.9-7.7 K/ML * FOR ADULT BLACK MALES AND FEMALES, NORMAL RBC,HGB, AND HCT IS 5% LESS SOURCE FOR DATA: [employer] 1800 OPERATION MANUAL( AUTOMATED BLOOD COUNTS AND DIFF.) APPENDIX B-3 CHRONIC KIDNEY DISEASE STAGING PER NKF: MALE GFR INTERPRETATION: 20-49 YRS: >60 mL/min Normal 50-59 YRS: >56 mL/min Normal 60-69 YRS: >49 mL/min Normal 70-79 YRS: >42 mL/min Normal 80 and above >35 mL/min Normal FEMALE GRF INTERPRETATION: 20-39 YRS: >60 mL/min Normal 40-49 YRS: >58 mL/min Normal 50-59 YRS: >51 mL/min Normal 60-69 YRS: >45 mL/min Normal 70-79 YRS: >39 mL/min Normal 80 and above >32 mL/min NormalCLASSIFICATION CHOLESTEROL FOR ADULTS CHILDREN/ADOLESCENTS* DESIRABLE: <200 MG/DL <170 MG/DL BORDER-LINE HIGH RISK: 200-239 MG/DL 170-199 MG/DL HIGH RISK: >240 MG/DL >200 MG/DL CLASS. FOR PRIMARY LDL CHOL PREVENTION: LDL CHOL-CHILD/ADOLESCENTS* DESIRABLE: <130 MG/DL <110 MG/DL BORDERLINE-HIGH RISK: 130- 159 MG/DL 110-129 MG/DL HIGH RISK: >160 MG/DL >130 MG/DL *CHILDREN AND ADOLESCENTS REPRESENTS INDIVIDUALA AGED 2-19 YEARS EXCLUSIVE. Alb 4.2 g/dL 3.4-4.8 [facility] ([facility] NORMAL RANGES Age WBC RBC HGB HCT MCV PLT Adult M 4.1-10.9 4.20-6.30 12.0-18.0 37.0-51.0 80-97 140-440 Adult F 4.1-10.9 4.04-5.48 12.0-18.0 37.0-51.0 80-97 140-440 0 -1 Yr 5.0-20.0 3.9-5.9 15-18 MV: 44 MV: 91 MV: 277 2-9 Yr. 6.0-17.0 3.8-5.4 11-13 MV: 37 MV: 78 MV: 300 10 Yrs. 5.0-13.0 3.8-5.4 12-15 MV: 39 MV: 80 MV: 250 NOTE: * FOR ADULT BLACK MALES AND FEMALES, NORMAL WBC IS 2.9-7.7 K/ML * FOR ADULT BLACK MALES AND FEMALES, NORMAL RBC,HGB, AND HCT IS 5% LESS SOURCE FOR DATA: [employer] 1800 OPERATION MANUAL( AUTOMATED BLOOD COUNTS AND DIFF.) APPENDIX B-3 CHRONIC KIDNEY DISEASE STAGING PER NKF: MALE GFR INTERPRETATION: 20-49 YRS: >60 mL/min Normal 50-59 YRS: >56 mL/min Normal 60-69 YRS: >49 mL/min Normal 70-79 YRS: >42 mL/min Normal 80 and above >35 mL/min Normal FEMALE GRF INTERPRETATION: 20-39 YRS: >60 mL/min Normal 40-49 YRS: >58 mL/min Normal 50-59 YRS: >51 mL/min Normal 60-69 YRS: >45 mL/min Normal 70-79 YRS: >39 mL/min Normal 80 and above >32 mL/min NormalCLASSIFICATION CHOLESTEROL FOR ADULTS CHILDREN/ADOLESCENTS* DESIRABLE: <200 MG/DL <170 MG/DL BORDER-LINE HIGH RISK: 200-239 MG/DL 170-199 MG/DL HIGH RISK: >240 MG/DL >200 MG/DL CLASS. FOR PRIMARY LDL CHOL PREVENTION: LDL CHOL-CHILD/ADOLESCENTS* DESIRABLE: <130 MG/DL <110 MG/DL BORDERLINE-HIGH RISK: 130- 159 MG/DL 110-129 MG/DL HIGH RISK: >160 MG/DL >130 MG/DL *CHILDREN AND ADOLESCENTS REPRESENTS INDIVIDUALA AGED 2-19 YEARS EXCLUSIVE. Alp 71.1 U/L 35-129 [facility] NORMAL RANGES Age WBC RBC HGB HCT MCV PLT Adult M 4.1-10.9 4.20-6.30 12.0-18.0 37.0-51.0 80-97 140-440 Adult F 4.1-10.9 4.04-5.48 12.0-18.0 37.0-51.0 80-97 140-440 0 -1 Yr 5.0-20.0 3.9-5.9 15-18 MV: 44 MV: 91 MV: 277 2-9 Yr. 6.0-17.0 3.8-5.4 11-13 MV: 37 MV: 78 MV: 300 10 Yrs. 5.0-13.0 3.8-5.4 12-15 MV: 39 MV: 80 MV: 250 NOTE: * FOR ADULT BLACK MALES AND FEMALES, NORMAL WBC IS 2.9-7.7 K/ML * FOR ADULT BLACK MALES AND FEMALES, NORMAL RBC,HGB, AND HCT IS 5% LESS SOURCE FOR DATA: [employer] 1800 OPERATION MANUAL( AUTOMATED BLOOD COUNTS AND DIFF.) APPENDIX B-3 CHRONIC KIDNEY DISEASE STAGING PER NKF: MALE GFR INTERPRETATION: 20-49 YRS: >60 mL/min Normal 50-59 YRS: >56 mL/min Normal 60-69 YRS: >49 mL/min Normal 70-79 YRS: >42 mL/min Normal 80 and above >35 mL/min Normal FEMALE GRF INTERPRETATION: 20-39 YRS: >60 mL/min Normal 40-49 YRS: >58 mL/min Normal 50-59 YRS: >51 mL/min Normal 60-69 YRS: >45 mL/min Normal 70-79 YRS: >39 mL/min Normal 80 and above >32 mL/min NormalCLASSIFICATION CHOLESTEROL FOR ADULTS CHILDREN/ADOLESCENTS* DESIRABLE: <200 MG/DL <170 MG/DL BORDER-LINE HIGH RISK: 200-239 MG/DL 170-199 MG/DL HIGH RISK: >240 MG/DL >200 MG/DL CLASS. FOR PRIMARY LDL CHOL PREVENTION: LDL CHOL-CHILD/ADOLESCENTS* DESIRABLE: <130 MG/DL <110 MG/DL BORDERLINE-HIGH RISK: 130- 159 MG/DL 110-129 MG/DL HIGH RISK: >160 MG/DL >130 MG/DL *CHILDREN AND ADOLESCENTS REPRESENTS INDIVIDUALA AGED 2-19 YEARS EXCLUSIVE. Alt (SGPT) 16 U/L 0-41 [facility] ([facility] NORMAL RANGES Age WBC RBC HGB HCT MCV PLT Adult M 4.1-10.9 4.20-6.30 12.0-18.0 37.0-51.0 80-97 140-440 Adult F 4.1-10.9 4.04-5.48 12.0-18.0 37.0-51.0 80-97 140-440 0 -1 Yr 5.0-20.0 3.9-5.9 15-18 MV: 44 MV: 91 MV: 277 2-9 Yr. 6.0-17.0 3.8-5.4 11-13 MV: 37 MV: 78 MV: 300 10 Yrs. 5.0-13.0 3.8-5.4 12-15 MV: 39 MV: 80 MV: 250 NOTE: * FOR ADULT BLACK MALES AND FEMALES, NORMAL WBC IS 2.9-7.7 K/ML * FOR ADULT BLACK MALES AND FEMALES, NORMAL RBC,HGB, AND HCT IS 5% LESS SOURCE FOR DATA: [employer] 1800 OPERATION MANUAL( AUTOMATED BLOOD COUNTS AND DIFF.) APPENDIX B-3 CHRONIC KIDNEY DISEASE STAGING PER NKF: MALE GFR INTERPRETATION: 20-49 YRS: >60 mL/min Normal 50-59 YRS: >56 mL/min Normal 60-69 YRS: >49 mL/min Normal 70-79 YRS: >42 mL/min Normal 80 and above >35 mL/min Normal FEMALE GRF INTERPRETATION: 20-39 YRS: >60 mL/min Normal 40-49 YRS: >58 mL/min Normal 50-59 YRS: >51 mL/min Normal 60-69 YRS: >45 mL/min Normal 70-79 YRS: >39 mL/min Normal 80 and above >32 mL/min NormalCLASSIFICATION CHOLESTEROL FOR ADULTS CHILDREN/ADOLESCENTS* DESIRABLE: <200 MG/DL <170 MG/DL BORDER-LINE HIGH RISK: 200-239 MG/DL 170-199 MG/DL HIGH RISK: >240 MG/DL >200 MG/DL CLASS. FOR PRIMARY LDL CHOL PREVENTION: LDL CHOL-CHILD/ADOLESCENTS* DESIRABLE: <130 MG/DL <110 MG/DL BORDERLINE-HIGH RISK: 130- 159 MG/DL 110-129 MG/DL HIGH RISK: >160 MG/DL >130 MG/DL *CHILDREN AND ADOLESCENTS REPRESENTS INDIVIDUALA AGED 2-19 YEARS EXCLUSIVE. Ast (Sgot) 16 U/L 0-40 [facility] ([facility] NORMAL RANGES Age WBC RBC HGB HCT MCV PLT Adult M 4.1-10.9 4.20-6.30 12.0-18.0 37.0-51.0 80-97 140-440 Adult F 4.1-10.9 4.04-5.48 12.0-18.0 37.0-51.0 80-97 140-440 0 -1 Yr 5.0-20.0 3.9-5.9 15-18 MV: 44 MV: 91 MV: 277 2-9 Yr. 6.0-17.0 3.8-5.4 11-13 MV: 37 MV: 78 MV: 300 10 Yrs. 5.0-13.0 3.8-5.4 12-15 MV: 39 MV: 80 MV: 250 NOTE: * FOR ADULT BLACK MALES AND FEMALES, NORMAL WBC IS 2.9-7.7 K/ML * FOR ADULT BLACK MALES AND FEMALES, NORMAL RBC,HGB, AND HCT IS 5% LESS SOURCE FOR DATA: [employer] 1800 OPERATION MANUAL( AUTOMATED BLOOD COUNTS AND DIFF.) APPENDIX B-3 CHRONIC KIDNEY DISEASE STAGING PER NKF: MALE GFR INTERPRETATION: 20-49 YRS: >60 mL/min Normal 50-59 YRS: >56 mL/min Normal 60-69 YRS: >49 mL/min Normal 70-79 YRS: >42 mL/min Normal 80 and above >35 mL/min Normal FEMALE GRF INTERPRETATION: 20-39 YRS: >60 mL/min Normal 40-49 YRS: >58 mL/min Normal 50-59 YRS: >51 mL/min Normal 60-69 YRS: >45 mL/min Normal 70-79 YRS: >39 mL/min Normal 80 and above >32 mL/min NormalCLASSIFICATION CHOLESTEROL FOR ADULTS CHILDREN/ADOLESCENTS* DESIRABLE: <200 MG/DL <170 MG/DL BORDER-LINE HIGH RISK: 200-239 MG/DL 170-199 MG/DL HIGH RISK: >240 MG/DL >200 MG/DL CLASS. FOR PRIMARY LDL CHOL PREVENTION: LDL CHOL-CHILD/ADOLESCENTS* DESIRABLE: <130 MG/DL <110 MG/DL BORDERLINE-HIGH RISK: 130- 159 MG/DL 110-129 MG/DL HIGH RISK: >160 MG/DL >130 MG/DL *CHILDREN AND ADOLESCENTS REPRESENTS INDIVIDUALA AGED 2-19 YEARS EXCLUSIVE. Tbili 0.48 mg/dL 0.0-1.2 [facility] ([facility] NORMAL RANGES Age WBC RBC HGB HCT MCV PLT Adult M 4.1-10.9 4.20-6.30 12.0-18.0 37.0-51.0 80-97 140-440 Adult F 4.1-10.9 4.04-5.48 12.0-18.0 37.0-51.0 80-97 140-440 0 -1 Yr 5.0-20.0 3.9-5.9 15-18 MV: 44 MV: 91 MV: 277 2-9 Yr. 6.0-17.0 3.8-5.4 11-13 MV: 37 MV: 78 MV: 300 10 Yrs. 5.0-13.0 3.8-5.4 12-15 MV: 39 MV: 80 MV: 250 NOTE: * FOR ADULT BLACK MALES AND FEMALES, NORMAL WBC IS 2.9-7.7 K/ML * FOR ADULT BLACK MALES AND FEMALES, NORMAL RBC,HGB, AND HCT IS 5% LESS SOURCE FOR DATA: [employer] 1800 [employer]ATION MANUAL( AUTOMATED BLOOD COUNTS AND DIFF.) APPENDIX B-3 CHRONIC KIDNEY DISEASE STAGING PER NKF: MALE GFR INTERPRETATION: 20-49 YRS: >60 mL/min Normal 50-59 YRS: >56 mL/min Normal 60-69 YRS: >49 mL/min Normal 70-79 YRS: >42 mL/min Normal 80 and above >35 mL/min Normal FEMALE GRF INTERPRETATION: 20-39 YRS: >60 mL/min Normal 40-49 YRS: >58 mL/min Normal 50-59 YRS: >51 mL/min Normal 60-69 YRS: >45 mL/min Normal 70-79 YRS: >39 mL/min Normal 80 and above >32 mL/min NormalCLASSIFICATION CHOLESTEROL FOR ADULTS CHILDREN/ADOLESCENTS* DESIRABLE: <200 MG/DL <170 MG/DL BORDER-LINE HIGH RISK: 200-239 MG/DL 170-199 MG/DL HIGH RISK: >240 MG/DL >200 MG/DL CLASS. FOR PRIMARY LDL CHOL PREVENTION: LDL CHOL-CHILD/ADOLESCENTS* DESIRABLE: <130 MG/DL <110 MG/DL BORDERLINE-HIGH RISK: 130- 159 MG/DL 110-129 MG/DL HIGH RISK: >160 MG/DL >130 MG/DL *CHILDREN AND ADOLESCENTS REPRESENTS INDIVIDUALA AGED 2-19 YEARS EXCLUSIVE. Osmolality-Calculated 279.2 [facility]C [facility] ([facility] NORMAL RANGES Age WBC RBC HGB HCT MCV PLT Adult M 4.1-10.9 4.20-6.30 12.0-18.0 37.0-51.0 80-97 140-440 Adult F 4.1-10.9 4.04-5.48 12.0-18.0 37.0-51.0 80-97 140-440 0 -1 Yr 5.0-20.0 3.9-5.9 15-18 MV: 44 MV: 91 MV: 277 2-9 Yr. 6.0-17.0 3.8-5.4 11-13 MV: 37 MV: 78 MV: 300 10 Yrs. 5.0-13.0 3.8-5.4 12-15 MV: 39 MV: 80 MV: 250 NOTE: * FOR ADULT BLACK MALES AND FEMALES, NORMAL WBC IS 2.9-7.7 K/ML * FOR ADULT BLACK MALES AND FEMALES, NORMAL RBC,HGB, AND HCT IS 5% LESS SOURCE FOR DATA: [employer] 1800 [employer]ATION MANUAL( AUTOMATED BLOOD COUNTS AND DIFF.) APPENDIX B-3 CHRONIC KIDNEY DISEASE STAGING PER NKF: MALE GFR INTERPRETATION: 20-49 YRS: >60 mL/min Normal 50-59 YRS: >56 mL/min Normal 60-69 YRS: >49 mL/min Normal 70-79 YRS: >42 mL/min Normal 80 and above >35 mL/min Normal FEMALE GRF INTERPRETATION: 20-39 YRS: >60 mL/min Normal 40-49 YRS: >58 mL/min Normal 50-59 YRS: >51 mL/min Normal 60-69 YRS: >45 mL/min Normal 70-79 YRS: >39 mL/min Normal 80 and above >32 mL/min NormalCLASSIFICATION CHOLESTEROL FOR ADULTS CHILDREN/ADOLESCENTS* DESIRABLE: <200 MG/DL <170 MG/DL BORDER-LINE HIGH RISK: 200-239 MG/DL 170-199 MG/DL HIGH RISK: >240 MG/DL >200 MG/DL CLASS. FOR PRIMARY LDL CHOL PREVENTION: LDL CHOL-CHILD/ADOLESCENTS* DESIRABLE: <130 MG/DL <110 MG/DL BORDERLINE-HIGH RISK: 130- 159 MG/DL 110-129 MG/DL HIGH RISK: >160 MG/DL >130 MG/DL *CHILDREN AND ADOLESCENTS REPRESENTS INDIVIDUALA AGED 2-19 YEARS EXCLUSIVE. Anion Gap 14 mmol/L [facility] NORMAL RANGES Age WBC RBC HGB HCT MCV PLT Adult M 4.1-10.9 4.20-6.30 12.0-18.0 37.0-51.0 80-97 140-440 Adult F 4.1-10.9 4.04-5.48 12.0-18.0 37.0-51.0 80-97 140-440 0 -1 Yr 5.0-20.0 3.9-5.9 15-18 MV: 44 MV: 91 MV: 277 2-9 Yr. 6.0-17.0 3.8-5.4 11-13 MV: 37 MV: 78 MV: 300 10 Yrs. 5.0-13.0 3.8-5.4 12-15 MV: 39 MV: 80 MV: 250 NOTE: * FOR ADULT BLACK MALES AND FEMALES, NORMAL WBC IS 2.9-7.7 K/ML * FOR ADULT BLACK MALES AND FEMALES, NORMAL RBC,HGB, AND HCT IS 5% LESS SOURCE FOR DATA: [employer] 1800 OPERATION MANUAL( AUTOMATED BLOOD COUNTS AND DIFF.) APPENDIX B-3 CHRONIC KIDNEY DISEASE STAGING PER NKF: MALE GFR INTERPRETATION: 20-49 YRS: >60 mL/min Normal 50-59 YRS: >56 mL/min Normal 60-69 YRS: >49 mL/min Normal 70-79 YRS: >42 mL/min Normal 80 and above >35 mL/min Normal FEMALE GRF INTERPRETATION: 20-39 YRS: >60 mL/min Normal 40-49 YRS: >58 mL/min Normal 50-59 YRS: >51 mL/min Normal 60-69 YRS: >45 mL/min Normal 70-79 YRS: >39 mL/min Normal 80 and above >32 mL/min NormalCLASSIFICATION CHOLESTEROL FOR ADULTS CHILDREN/ADOLESCENTS* DESIRABLE: <200 MG/DL <170 MG/DL BORDER-LINE HIGH RISK: 200-239 MG/DL 170-199 MG/DL HIGH RISK: >240 MG/DL >200 MG/DL CLASS. FOR PRIMARY LDL CHOL PREVENTION: LDL CHOL-CHILD/ADOLESCENTS* DESIRABLE: <130 MG/DL <110 MG/DL BORDERLINE-HIGH RISK: 130- 159 MG/DL 110-129 MG/DL HIGH RISK: >160 MG/DL >130 MG/DL *CHILDREN AND ADOLESCENTS REPRESENTS INDIVIDUALA AGED 2-19 YEARS EXCLUSIVE. eGFR Non-Afr. Uzbek 96 # [facility] ([facility] NORMAL RANGES Age WBC RBC HGB HCT MCV PLT Adult M 4.1-10.9 4.20-6.30 12.0-18.0 37.0-51.0 80-97 140-440 Adult F 4.1-10.9 4.04-5.48 12.0-18.0 37.0-51.0 80-97 140-440 0 -1 Yr 5.0-20.0 3.9-5.9 15-18 MV: 44 MV: 91 MV: 277 2-9 Yr. 6.0-17.0 3.8-5.4 11-13 MV: 37 MV: 78 MV: 300 10 Yrs. 5.0-13.0 3.8-5.4 12-15 MV: 39 MV: 80 MV: 250 NOTE: * FOR ADULT BLACK MALES AND FEMALES, NORMAL WBC IS 2.9-7.7 K/ML * FOR ADULT BLACK MALES AND FEMALES, NORMAL RBC,HGB, AND HCT IS 5% LESS SOURCE FOR DATA: [employer] 1800 OPERATION MANUAL( AUTOMATED BLOOD COUNTS AND DIFF.) APPENDIX B-3 CHRONIC KIDNEY DISEASE STAGING PER NKF: MALE GFR INTERPRETATION: 20-49 YRS: >60 mL/min Normal 50-59 YRS: >56 mL/min Normal 60-69 YRS: >49 mL/min Normal 70-79 YRS: >42 mL/min Normal 80 and above >35 mL/min Normal FEMALE GRF INTERPRETATION: 20-39 YRS: >60 mL/min Normal 40-49 YRS: >58 mL/min Normal 50-59 YRS: >51 mL/min Normal 60-69 YRS: >45 mL/min Normal 70-79 YRS: >39 mL/min Normal 80 and above >32 mL/min NormalCLASSIFICATION CHOLESTEROL FOR ADULTS CHILDREN/ADOLESCENTS* DESIRABLE: <200 MG/DL <170 MG/DL BORDER-LINE HIGH RISK: 200-239 MG/DL 170-199 MG/DL HIGH RISK: >240 MG/DL >200 MG/DL CLASS. FOR PRIMARY LDL CHOL PREVENTION: LDL CHOL-CHILD/ADOLESCENTS* DESIRABLE: <130 MG/DL <110 MG/DL BORDERLINE-HIGH RISK: 130- 159 MG/DL 110-129 MG/DL HIGH RISK: >160 MG/DL >130 MG/DL *CHILDREN AND ADOLESCENTS REPRESENTS INDIVIDUALA AGED 2-19 YEARS EXCLUSIVE. eGFR 111 # [facility] ( [facility] NORMAL RANGES Age WBC RBC HGB HCT MCV PLT Adult M 4.1-10.9 4.20-6.30 12.0-18.0 37.0-51.0 80-97 140-440 Adult F 4.1-10.9 4.04-5.48 12.0-18.0 37.0-51.0 80-97 140-440 0 -1 Yr 5.0-20.0 3.9-5.9 15-18 MV: 44 MV: 91 MV: 277 2-9 Yr. 6.0-17.0 3.8-5.4 11-13 MV: 37 MV: 78 MV: 300 10 Yrs. 5.0-13.0 3.8-5.4 12-15 MV: 39 MV: 80 MV: 250 NOTE: * FOR ADULT BLACK MALES AND FEMALES, NORMAL WBC IS 2.9-7.7 K/ML * FOR ADULT BLACK MALES AND FEMALES, NORMAL RBC,HGB, AND HCT IS 5% LESS SOURCE FOR DATA: [employer] 1800 OPERATION MANUAL( AUTOMATED BLOOD COUNTS AND DIFF.) APPENDIX B-3 CHRONIC KIDNEY DISEASE STAGING PER NKF: MALE GFR INTERPRETATION: 20-49 YRS: >60 mL/min Normal 50-59 YRS: >56 mL/min Normal 60-69 YRS: >49 mL/min Normal 70-79 YRS: >42 mL/min Normal 80 and above >35 mL/min Normal FEMALE GRF INTERPRETATION: 20-39 YRS: >60 mL/min Normal 40-49 YRS: >58 mL/min Normal 50-59 YRS: >51 mL/min Normal 60-69 YRS: >45 mL/min Normal 70-79 YRS: >39 mL/min Normal 80 and above >32 mL/min NormalCLASSIFICATION CHOLESTEROL FOR ADULTS CHILDREN/ADOLESCENTS* DESIRABLE: <200 MG/DL <170 MG/DL BORDER-LINE HIGH RISK: 200-239 MG/DL 170-199 MG/DL HIGH RISK: >240 MG/DL >200 MG/DL CLASS. FOR PRIMARY LDL CHOL PREVENTION: LDL CHOL-CHILD/ADOLESCENTS* DESIRABLE: <130 MG/DL <110 MG/DL BORDERLINE-HIGH RISK: 130- 159 MG/DL 110-129 MG/DL HIGH RISK: >160 MG/DL >130 MG/DL *CHILDREN AND ADOLESCENTS REPRESENTS INDIVIDUALA AGED 2-19 YEARS EXCLUSIVE. ID Date Data Source [id number] 03/12/2020 08:49:00 AM EST [facility] ([facility] Name Value Range Interpretation Code Description Data Deepa rce(s) Supporting Document(s) RBC 4.52 10E6/uL .30 [facility] [facility] NORMAL RANGES Age WBC RBC HGB HCT MCV PLT Adult M 4.1-10.9 4.20-6.30 12.0-18.0 37.0-51.0 80-97 140-440 Adult F 4.1-10.9 4.04-5.48 12.0-18.0 37.0-51.0 80-97 140-440 0 -1 Yr 5.0-20.0 3.9-5.9 15-18 MV: 44 MV: 91 MV: 277 2-9 Yr. 6.0-17.0 3.8-5.4 11-13 MV: 37 MV: 78 MV: 300 10 Yrs. 5.0-13.0 3.8-5.4 12-15 MV: 39 MV: 80 MV: 250 NOTE: * FOR ADULT BLACK MALES AND FEMALES, NORMAL WBC IS 2.9-7.7 K/ML * FOR ADULT BLACK MALES AND FEMALES, NORMAL RBC,HGB, AND HCT IS 5% LESS SOURCE FOR DATA: [employer] 1800 OPERATION MANUAL( AUTOMATED BLOOD COUNTS AND DIFF.) APPENDIX B-3 CHRONIC KIDNEY DISEASE STAGING PER NKF: MALE GFR INTERPRETATION: 20-49 YRS: >60 mL/min Normal 50-59 YRS: >56 mL/min Normal 60-69 YRS: >49 mL/min Normal 70-79 YRS: >42 mL/min Normal 80 and above >35 mL/min Normal FEMALE GRF INTERPRETATION: 20-39 YRS: >60 mL/min Normal 40-49 YRS: >58 mL/min Normal 50-59 YRS: >51 mL/min Normal 60-69 YRS: >45 mL/min Normal 70-79 YRS: >39 mL/min Normal 80 and above >32 mL/min NormalCLASSIFICATION CHOLESTEROL FOR ADULTS CHILDREN/ADOLESCENTS* DESIRABLE: <200 MG/DL <170 MG/DL BORDER-LINE HIGH RISK: 200-239 MG/DL 170-199 MG/DL HIGH RISK: >240 MG/DL >200 MG/DL CLASS. FOR PRIMARY LDL CHOL PREVENTION: LDL CHOL-CHILD/ADOLESCENTS* DESIRABLE: <130 MG/DL <110 MG/DL BORDERLINE-HIGH RISK: 130- 159 MG/DL 110-129 MG/DL HIGH RISK: >160 MG/DL >130 MG/DL *CHILDREN AND ADOLESCENTS REPRESENTS INDIVIDUALA AGED 2-19 YEARS EXCLUSIVE. WBC 5.4 10E3/uL 4.1-10.9 [facility] ([facility] NORMAL RANGES Age WBC RBC HGB HCT MCV PLT Adult M 4.1-10.9 4.20-6.30 12.0-18.0 37.0-51.0 80-97 140-440 Adult F 4.1-10.9 4.04-5.48 12.0-18.0 37.0-51.0 80-97 140-440 0 -1 Yr 5.0-20.0 3.9-5.9 15-18 MV: 44 MV: 91 MV: 277 2-9 Yr. 6.0-17.0 3.8-5.4 11-13 MV: 37 MV: 78 MV: 300 10 Yrs. 5.0-13.0 3.8-5.4 12-15 MV: 39 MV: 80 MV: 250 NOTE: * FOR ADULT BLACK MALES AND FEMALES, NORMAL WBC IS 2.9-7.7 K/ML * FOR ADULT BLACK MALES AND FEMALES, NORMAL RBC,HGB, AND HCT IS 5% LESS SOURCE FOR DATA: [employer] 1800 OPERATION MANUAL( AUTOMATED BLOOD COUNTS AND DIFF.) APPENDIX B-3 CHRONIC KIDNEY DISEASE STAGING PER NKF: MALE GFR INTERPRETATION: 20-49 YRS: >60 mL/min Normal 50-59 YRS: >56 mL/min Normal 60-69 YRS: >49 mL/min Normal 70-79 YRS: >42 mL/min Normal 80 and above >35 mL/min Normal FEMALE GRF INTERPRETATION: 20-39 YRS: >60 mL/min Normal 40-49 YRS: >58 mL/min Normal 50-59 YRS: >51 mL/min Normal 60-69 YRS: >45 mL/min Normal 70-79 YRS: >39 mL/min Normal 80 and above >32 mL/min NormalCLASSIFICATION CHOLESTEROL FOR ADULTS CHILDREN/ADOLESCENTS* DESIRABLE: <200 MG/DL <170 MG/DL BORDER-LINE HIGH RISK: 200-239 MG/DL 170-199 MG/DL HIGH RISK: >240 MG/DL >200 MG/DL CLASS. FOR PRIMARY LDL CHOL PREVENTION: LDL CHOL-CHILD/ADOLESCENTS* DESIRABLE: <130 MG/DL <110 MG/DL BORDERLINE-HIGH RISK: 130- 159 MG/DL 110-129 MG/DL HIGH RISK: >160 MG/DL >130 MG/DL *CHILDREN AND ADOLESCENTS REPRESENTS INDIVIDUALA AGED 2-19 YEARS EXCLUSIVE. HGB 13.2 g/dL 12.0-18.0 [facility] NORMAL RANGES Age WBC RBC HGB HCT MCV PLT Adult M 4.1-10.9 4.20-6.30 12.0-18.0 37.0-51.0 80-97 140-440 Adult F 4.1-10.9 4.04-5.48 12.0-18.0 37.0-51.0 80-97 140-440 0 -1 Yr 5.0-20.0 3.9-5.9 15-18 MV: 44 MV: 91 MV: 277 2-9 Yr. 6.0-17.0 3.8-5.4 11-13 MV: 37 MV: 78 MV: 300 10 Yrs. 5.0-13.0 3.8-5.4 12-15 MV: 39 MV: 80 MV: 250 NOTE: * FOR ADULT BLACK MALES AND FEMALES, NORMAL WBC IS 2.9-7.7 K/ML * FOR ADULT BLACK MALES AND FEMALES, NORMAL RBC,HGB, AND HCT IS 5% LESS SOURCE FOR DATA: [employer] 1800 OPERATION MANUAL( AUTOMATED BLOOD COUNTS AND DIFF.) APPENDIX B-3 CHRONIC KIDNEY DISEASE STAGING PER NKF: MALE GFR INTERPRETATION: 20-49 YRS: >60 mL/min Normal 50-59 YRS: >56 mL/min Normal 60-69 YRS: >49 mL/min Normal 70-79 YRS: >42 mL/min Normal 80 and above >35 mL/min Normal FEMALE GRF INTERPRETATION: 20-39 YRS: >60 mL/min Normal 40-49 YRS: >58 mL/min Normal 50-59 YRS: >51 mL/min Normal 60-69 YRS: >45 mL/min Normal 70-79 YRS: >39 mL/min Normal 80 and above >32 mL/min NormalCLASSIFICATION CHOLESTEROL FOR ADULTS CHILDREN/ADOLESCENTS* DESIRABLE: <200 MG/DL <170 MG/DL BORDER-LINE HIGH RISK: 200-239 MG/DL 170-199 MG/DL HIGH RISK: >240 MG/DL >200 MG/DL CLASS. FOR PRIMARY LDL CHOL PREVENTION: LDL CHOL-CHILD/ADOLESCENTS* DESIRABLE: <130 MG/DL <110 MG/DL BORDERLINE-HIGH RISK: 130- 159 MG/DL 110-129 MG/DL HIGH RISK: >160 MG/DL >130 MG/DL *CHILDREN AND ADOLESCENTS REPRESENTS INDIVIDUALA AGED 2-19 YEARS EXCLUSIVE. HCT 40.2 % 37.0-51.0 [facility] ([facility] NORMAL RANGES Age WBC RBC HGB HCT MCV PLT Adult M 4.1-10.9 4.20-6.30 12.0-18.0 37.0-51.0 80-97 140-440 Adult F 4.1-10.9 4.04-5.48 12.0-18.0 37.0-51.0 80-97 140-440 0 -1 Yr 5.0-20.0 3.9-5.9 15-18 MV: 44 MV: 91 MV: 277 2-9 Yr. 6.0-17.0 3.8-5.4 11-13 MV: 37 MV: 78 MV: 300 10 Yrs. 5.0-13.0 3.8-5.4 12-15 MV: 39 MV: 80 MV: 250 NOTE: * FOR ADULT BLACK MALES AND FEMALES, NORMAL WBC IS 2.9-7.7 K/ML * FOR ADULT BLACK MALES AND FEMALES, NORMAL RBC,HGB, AND HCT IS 5% LESS SOURCE FOR DATA: [employer] 1800 OPERATION MANUAL( AUTOMATED BLOOD COUNTS AND DIFF.) APPENDIX B-3 CHRONIC KIDNEY DISEASE STAGING PER NKF: MALE GFR INTERPRETATION: 20-49 YRS: >60 mL/min Normal 50-59 YRS: >56 mL/min Normal 60-69 YRS: >49 mL/min Normal 70-79 YRS: >42 mL/min Normal 80 and above >35 mL/min Normal FEMALE GRF INTERPRETATION: 20-39 YRS: >60 mL/min Normal 40-49 YRS: >58 mL/min Normal 50-59 YRS: >51 mL/min Normal 60-69 YRS: >45 mL/min Normal 70-79 YRS: >39 mL/min Normal 80 and above >32 mL/min NormalCLASSIFICATION CHOLESTEROL FOR ADULTS CHILDREN/ADOLESCENTS* DESIRABLE: <200 MG/DL <170 MG/DL BORDER-LINE HIGH RISK: 200-239 MG/DL 170-199 MG/DL HIGH RISK: >240 MG/DL >200 MG/DL CLASS. FOR PRIMARY LDL CHOL PREVENTION: LDL CHOL-CHILD/ADOLESCENTS* DESIRABLE: <130 MG/DL <110 MG/DL BORDERLINE-HIGH RISK: 130- 159 MG/DL 110-129 MG/DL HIGH RISK: >160 MG/DL >130 MG/DL *CHILDREN AND ADOLESCENTS REPRESENTS INDIVIDUALA AGED 2-19 YEARS EXCLUSIVE. MCV 88.9 fL 80.0-97.0 [facility] NORMAL RANGES Age WBC RBC HGB HCT MCV PLT Adult M 4.1-10.9 4.20-6.30 12.0-18.0 37.0-51.0 80-97 140-440 Adult F 4.1-10.9 4.04-5.48 12.0-18.0 37.0-51.0 80-97 140-440 0 -1 Yr 5.0-20.0 3.9-5.9 15-18 MV: 44 MV: 91 MV: 277 2-9 Yr. 6.0-17.0 3.8-5.4 11-13 MV: 37 MV: 78 MV: 300 10 Yrs. 5.0-13.0 3.8-5.4 12-15 MV: 39 MV: 80 MV: 250 NOTE: * FOR ADULT BLACK MALES AND FEMALES, NORMAL WBC IS 2.9-7.7 K/ML * FOR ADULT BLACK MALES AND FEMALES, NORMAL RBC,HGB, AND HCT IS 5% LESS SOURCE FOR DATA: [employer] 1800 OPERATION MANUAL( AUTOMATED BLOOD COUNTS AND DIFF.) APPENDIX B-3 CHRONIC KIDNEY DISEASE STAGING PER NKF: MALE GFR INTERPRETATION: 20-49 YRS: >60 mL/min Normal 50-59 YRS: >56 mL/min Normal 60-69 YRS: >49 mL/min Normal 70-79 YRS: >42 mL/min Normal 80 and above >35 mL/min Normal FEMALE GRF INTERPRETATION: 20-39 YRS: >60 mL/min Normal 40-49 YRS: >58 mL/min Normal 50-59 YRS: >51 mL/min Normal 60-69 YRS: >45 mL/min Normal 70-79 YRS: >39 mL/min Normal 80 and above >32 mL/min NormalCLASSIFICATION CHOLESTEROL FOR ADULTS CHILDREN/ADOLESCENTS* DESIRABLE: <200 MG/DL <170 MG/DL BORDER-LINE HIGH RISK: 200-239 MG/DL 170-199 MG/DL HIGH RISK: >240 MG/DL >200 MG/DL CLASS. FOR PRIMARY LDL CHOL PREVENTION: LDL CHOL-CHILD/ADOLESCENTS* DESIRABLE: <130 MG/DL <110 MG/DL BORDERLINE-HIGH RISK: 130- 159 MG/DL 110-129 MG/DL HIGH RISK: >160 MG/DL >130 MG/DL *CHILDREN AND ADOLESCENTS REPRESENTS INDIVIDUALA AGED 2-19 YEARS EXCLUSIVE. MCH 29.2 pg 26.0-32.0 [facility] ([facility] NORMAL RANGES Age WBC RBC HGB HCT MCV PLT Adult M 4.1-10.9 4.20-6.30 12.0-18.0 37.0-51.0 80-97 140-440 Adult F 4.1-10.9 4.04-5.48 12.0-18.0 37.0-51.0 80-97 140-440 0 -1 Yr 5.0-20.0 3.9-5.9 15-18 MV: 44 MV: 91 MV: 277 2-9 Yr. 6.0-17.0 3.8-5.4 11-13 MV: 37 MV: 78 MV: 300 10 Yrs. 5.0-13.0 3.8-5.4 12-15 MV: 39 MV: 80 MV: 250 NOTE: * FOR ADULT BLACK MALES AND FEMALES, NORMAL WBC IS 2.9-7.7 K/ML * FOR ADULT BLACK MALES AND FEMALES, NORMAL RBC,HGB, AND HCT IS 5% LESS SOURCE FOR DATA: [employer] 1800 OPERATION MANUAL( AUTOMATED BLOOD COUNTS AND DIFF.) APPENDIX B-3 CHRONIC KIDNEY DISEASE STAGING PER NKF: MALE GFR INTERPRETATION: 20-49 YRS: >60 mL/min Normal 50-59 YRS: >56 mL/min Normal 60-69 YRS: >49 mL/min Normal 70-79 YRS: >42 mL/min Normal 80 and above >35 mL/min Normal FEMALE GRF INTERPRETATION: 20-39 YRS: >60 mL/min Normal 40-49 YRS: >58 mL/min Normal 50-59 YRS: >51 mL/min Normal 60-69 YRS: >45 mL/min Normal 70-79 YRS: >39 mL/min Normal 80 and above >32 mL/min NormalCLASSIFICATION CHOLESTEROL FOR ADULTS CHILDREN/ADOLESCENTS* DESIRABLE: <200 MG/DL <170 MG/DL BORDER-LINE HIGH RISK: 200-239 MG/DL 170-199 MG/DL HIGH RISK: >240 MG/DL >200 MG/DL CLASS. FOR PRIMARY LDL CHOL PREVENTION: LDL CHOL-CHILD/ADOLESCENTS* DESIRABLE: <130 MG/DL <110 MG/DL BORDERLINE-HIGH RISK: 130- 159 MG/DL 110-129 MG/DL HIGH RISK: >160 MG/DL >130 MG/DL *CHILDREN AND ADOLESCENTS REPRESENTS INDIVIDUALA AGED 2-19 YEARS EXCLUSIVE. MCHC 32.8 g/dL 31.0-36.0 [facility] ([facility] NORMAL RANGES Age WBC RBC HGB HCT MCV PLT Adult M 4.1-10.9 4.20-6.30 12.0-18.0 37.0-51.0 80-97 140-440 Adult F 4.1-10.9 4.04-5.48 12.0-18.0 37.0-51.0 80-97 140-440 0 -1 Yr 5.0-20.0 3.9-5.9 15-18 MV: 44 MV: 91 MV: 277 2-9 Yr. 6.0-17.0 3.8-5.4 11-13 MV: 37 MV: 78 MV: 300 10 Yrs. 5.0-13.0 3.8-5.4 12-15 MV: 39 MV: 80 MV: 250 NOTE: * FOR ADULT BLACK MALES AND FEMALES, NORMAL WBC IS 2.9-7.7 K/ML * FOR ADULT BLACK MALES AND FEMALES, NORMAL RBC,HGB, AND HCT IS 5% LESS SOURCE FOR DATA: [employer] 1800 OPERATION MANUAL( AUTOMATED BLOOD COUNTS AND DIFF.) APPENDIX B-3 CHRONIC KIDNEY DISEASE STAGING PER NKF: MALE GFR INTERPRETATION: 20-49 YRS: >60 mL/min Normal 50-59 YRS: >56 mL/min Normal 60-69 YRS: >49 mL/min Normal 70-79 YRS: >42 mL/min Normal 80 and above >35 mL/min Normal FEMALE GRF INTERPRETATION: 20-39 YRS: >60 mL/min Normal 40-49 YRS: >58 mL/min Normal 50-59 YRS: >51 mL/min Normal 60-69 YRS: >45 mL/min Normal 70-79 YRS: >39 mL/min Normal 80 and above >32 mL/min NormalCLASSIFICATION CHOLESTEROL FOR ADULTS CHILDREN/ADOLESCENTS* DESIRABLE: <200 MG/DL <170 MG/DL BORDER-LINE HIGH RISK: 200-239 MG/DL 170-199 MG/DL HIGH RISK: >240 MG/DL >200 MG/DL CLASS. FOR PRIMARY LDL CHOL PREVENTION: LDL CHOL-CHILD/ADOLESCENTS* DESIRABLE: <130 MG/DL <110 MG/DL BORDERLINE-HIGH RISK: 130- 159 MG/DL 110-129 MG/DL HIGH RISK: >160 MG/DL >130 MG/DL *CHILDREN AND ADOLESCENTS REPRESENTS INDIVIDUALA AGED 2-19 YEARS EXCLUSIVE. PLT 215 10E3/uL 140-440 [facility] ([facility] NORMAL RANGES Age WBC RBC HGB HCT MCV PLT Adult M 4.1-10.9 4.20-6.30 12.0-18.0 37.0-51.0 80-97 140-440 Adult F 4.1-10.9 4.04-5.48 12.0-18.0 37.0-51.0 80-97 140-440 0 -1 Yr 5.0-20.0 3.9-5.9 15-18 MV: 44 MV: 91 MV: 277 2-9 Yr. 6.0-17.0 3.8-5.4 11-13 MV: 37 MV: 78 MV: 300 10 Yrs. 5.0-13.0 3.8-5.4 12-15 MV: 39 MV: 80 MV: 250 NOTE: * FOR ADULT BLACK MALES AND FEMALES, NORMAL WBC IS 2.9-7.7 K/ML * FOR ADULT BLACK MALES AND FEMALES, NORMAL RBC,HGB, AND HCT IS 5% LESS SOURCE FOR DATA: [employer] 1800 OPERATION MANUAL( AUTOMATED BLOOD COUNTS AND DIFF.) APPENDIX B-3 CHRONIC KIDNEY DISEASE STAGING PER NKF: MALE GFR INTERPRETATION: 20-49 YRS: >60 mL/min Normal 50-59 YRS: >56 mL/min Normal 60-69 YRS: >49 mL/min Normal 70-79 YRS: >42 mL/min Normal 80 and above >35 mL/min Normal FEMALE GRF INTERPRETATION: 20-39 YRS: >60 mL/min Normal 40-49 YRS: >58 mL/min Normal 50-59 YRS: >51 mL/min Normal 60-69 YRS: >45 mL/min Normal 70-79 YRS: >39 mL/min Normal 80 and above >32 mL/min NormalCLASSIFICATION CHOLESTEROL FOR ADULTS CHILDREN/ADOLESCENTS* DESIRABLE: <200 MG/DL <170 MG/DL BORDER-LINE HIGH RISK: 200-239 MG/DL 170-199 MG/DL HIGH RISK: >240 MG/DL >200 MG/DL CLASS. FOR PRIMARY LDL CHOL PREVENTION: LDL CHOL-CHILD/ADOLESCENTS* DESIRABLE: <130 MG/DL <110 MG/DL BORDERLINE-HIGH RISK: 130- 159 MG/DL 110-129 MG/DL HIGH RISK: >160 MG/DL >130 MG/DL *CHILDREN AND ADOLESCENTS REPRESENTS INDIVIDUALA AGED 2-19 YEARS EXCLUSIVE. RDW-CV 13.0 % 11.5-14.5 [facility] ([facility] NORMAL RANGES Age WBC RBC HGB HCT MCV PLT Adult M 4.1-10.9 4.20-6.30 12.0-18.0 37.0-51.0 80-97 140-440 Adult F 4.1-10.9 4.04-5.48 12.0-18.0 37.0-51.0 80-97 140-440 0 -1 Yr 5.0-20.0 3.9-5.9 15-18 MV: 44 MV: 91 MV: 277 2-9 Yr. 6.0-17.0 3.8-5.4 11-13 MV: 37 MV: 78 MV: 300 10 Yrs. 5.0-13.0 3.8-5.4 12-15 MV: 39 MV: 80 MV: 250 NOTE: * FOR ADULT BLACK MALES AND FEMALES, NORMAL WBC IS 2.9-7.7 K/ML * FOR ADULT BLACK MALES AND FEMALES, NORMAL RBC,HGB, AND HCT IS 5% LESS SOURCE FOR DATA: [employer] 1800 OPERATION MANUAL( AUTOMATED BLOOD COUNTS AND DIFF.) APPENDIX B-3 CHRONIC KIDNEY DISEASE STAGING PER NKF: MALE GFR INTERPRETATION: 20-49 YRS: >60 mL/min Normal 50-59 YRS: >56 mL/min Normal 60-69 YRS: >49 mL/min Normal 70-79 YRS: >42 mL/min Normal 80 and above >35 mL/min Normal FEMALE GRF INTERPRETATION: 20-39 YRS: >60 mL/min Normal 40-49 YRS: >58 mL/min Normal 50-59 YRS: >51 mL/min Normal 60-69 YRS: >45 mL/min Normal 70-79 YRS: >39 mL/min Normal 80 and above >32 mL/min NormalCLASSIFICATION CHOLESTEROL FOR ADULTS CHILDREN/ADOLESCENTS* DESIRABLE: <200 MG/DL <170 MG/DL BORDER-LINE HIGH RISK: 200-239 MG/DL 170-199 MG/DL HIGH RISK: >240 MG/DL >200 MG/DL CLASS. FOR PRIMARY LDL CHOL PREVENTION: LDL CHOL-CHILD/ADOLESCENTS* DESIRABLE: <130 MG/DL <110 MG/DL BORDERLINE-HIGH RISK: 130- 159 MG/DL 110-129 MG/DL HIGH RISK: >160 MG/DL >130 MG/DL *CHILDREN AND ADOLESCENTS REPRESENTS INDIVIDUALA AGED 2-19 YEARS EXCLUSIVE. Lym% 32.1 % 10.0-58.5 [facility] ([facility] NORMAL RANGES Age WBC RBC HGB HCT MCV PLT Adult M 4.1-10.9 4.20-6.30 12.0-18.0 37.0-51.0 80-97 140-440 Adult F 4.1-10.9 4.04-5.48 12.0-18.0 37.0-51.0 80-97 140-440 0 -1 Yr 5.0-20.0 3.9-5.9 15-18 MV: 44 MV: 91 MV: 277 2-9 Yr. 6.0-17.0 3.8-5.4 11-13 MV: 37 MV: 78 MV: 300 10 Yrs. 5.0-13.0 3.8-5.4 12-15 MV: 39 MV: 80 MV: 250 NOTE: * FOR ADULT BLACK MALES AND FEMALES, NORMAL WBC IS 2.9-7.7 K/ML * FOR ADULT BLACK MALES AND FEMALES, NORMAL RBC,HGB, AND HCT IS 5% LESS SOURCE FOR DATA: [employer] 1800 OPERATION MANUAL( AUTOMATED BLOOD COUNTS AND DIFF.) APPENDIX B-3 CHRONIC KIDNEY DISEASE STAGING PER NKF: MALE GFR INTERPRETATION: 20-49 YRS: >60 mL/min Normal 50-59 YRS: >56 mL/min Normal 60-69 YRS: >49 mL/min Normal 70-79 YRS: >42 mL/min Normal 80 and above >35 mL/min Normal FEMALE GRF INTERPRETATION: 20-39 YRS: >60 mL/min Normal 40-49 YRS: >58 mL/min Normal 50-59 YRS: >51 mL/min Normal 60-69 YRS: >45 mL/min Normal 70-79 YRS: >39 mL/min Normal 80 and above >32 mL/min NormalCLASSIFICATION CHOLESTEROL FOR ADULTS CHILDREN/ADOLESCENTS* DESIRABLE: <200 MG/DL <170 MG/DL BORDER-LINE HIGH RISK: 200-239 MG/DL 170-199 MG/DL HIGH RISK: >240 MG/DL >200 MG/DL CLASS. FOR PRIMARY LDL CHOL PREVENTION: LDL CHOL-CHILD/ADOLESCENTS* DESIRABLE: <130 MG/DL <110 MG/DL BORDERLINE-HIGH RISK: 130- 159 MG/DL 110-129 MG/DL HIGH RISK: >160 MG/DL >130 MG/DL *CHILDREN AND ADOLESCENTS REPRESENTS INDIVIDUALA AGED 2-19 YEARS EXCLUSIVE. MXD% 10.1 % 0.1-24.0 [facility] NORMAL RANGES Age WBC RBC HGB HCT MCV PLT Adult M 4.1-10.9 4.20-6.30 12.0-18.0 37.0-51.0 80-97 140-440 Adult F 4.1-10.9 4.04-5.48 12.0-18.0 37.0-51.0 80-97 140-440 0 -1 Yr 5.0-20.0 3.9-5.9 15-18 MV: 44 MV: 91 MV: 277 2-9 Yr. 6.0-17.0 3.8-5.4 11-13 MV: 37 MV: 78 MV: 300 10 Yrs. 5.0-13.0 3.8-5.4 12-15 MV: 39 MV: 80 MV: 250 NOTE: * FOR ADULT BLACK MALES AND FEMALES, NORMAL WBC IS 2.9-7.7 K/ML * FOR ADULT BLACK MALES AND FEMALES, NORMAL RBC,HGB, AND HCT IS 5% LESS SOURCE FOR DATA: [employer] 1800 [employer]PERATION MANUAL( AUTOMATED BLOOD COUNTS AND DIFF.) APPENDIX B-3 CHRONIC KIDNEY DISEASE STAGING PER NKF: MALE GFR INTERPRETATION: 20-49 YRS: >60 mL/min Normal 50-59 YRS: >56 mL/min Normal 60-69 YRS: >49 mL/min Normal 70-79 YRS: >42 mL/min Normal 80 and above >35 mL/min Normal FEMALE GRF INTERPRETATION: 20-39 YRS: >60 mL/min Normal 40-49 YRS: >58 mL/min Normal 50-59 YRS: >51 mL/min Normal 60-69 YRS: >45 mL/min Normal 70-79 YRS: >39 mL/min Normal 80 and above >32 mL/min NormalCLASSIFICATION CHOLESTEROL FOR ADULTS CHILDREN/ADOLESCENTS* DESIRABLE: <200 MG/DL <170 MG/DL BORDER-LINE HIGH RISK: 200-239 MG/DL 170-199 MG/DL HIGH RISK: >240 MG/DL >200 MG/DL CLASS. FOR PRIMARY LDL CHOL PREVENTION: LDL CHOL-CHILD/ADOLESCENTS* DESIRABLE: <130 MG/DL <110 MG/DL BORDERLINE-HIGH RISK: 130- 159 MG/DL 110-129 MG/DL HIGH RISK: >160 MG/DL >130 MG/DL *CHILDREN AND ADOLESCENTS REPRESENTS INDIVIDUALA AGED 2-19 YEARS EXCLUSIVE. Neut% 57.8 % 37.0-92.0 [facility] ([facility] NORMAL RANGES Age WBC RBC HGB HCT MCV PLT Adult M 4.1-10.9 4.20-6.30 12.0-18.0 37.0-51.0 80-97 140-440 Adult F 4.1-10.9 4.04-5.48 12.0-18.0 37.0-51.0 80-97 140-440 0 -1 Yr 5.0-20.0 3.9-5.9 15-18 MV: 44 MV: 91 MV: 277 2-9 Yr. 6.0-17.0 3.8-5.4 11-13 MV: 37 MV: 78 MV: 300 10 Yrs. 5.0-13.0 3.8-5.4 12-15 MV: 39 MV: 80 MV: 250 NOTE: * FOR ADULT BLACK MALES AND FEMALES, NORMAL WBC IS 2.9-7.7 K/ML * FOR ADULT BLACK MALES AND FEMALES, NORMAL RBC,HGB, AND HCT IS 5% LESS SOURCE FOR DATA: [employer] 1800 [employer] MANUAL( AUTOMATED BLOOD COUNTS AND DIFF.) APPENDIX B-3 CHRONIC KIDNEY DISEASE STAGING PER NKF: MALE GFR INTERPRETATION: 20-49 YRS: >60 mL/min Normal 50-59 YRS: >56 mL/min Normal 60-69 YRS: >49 mL/min Normal 70-79 YRS: >42 mL/min Normal 80 and above >35 mL/min Normal FEMALE GRF INTERPRETATION: 20-39 YRS: >60 mL/min Normal 40-49 YRS: >58 mL/min Normal 50-59 YRS: >51 mL/min Normal 60-69 YRS: >45 mL/min Normal 70-79 YRS: >39 mL/min Normal 80 and above >32 mL/min NormalCLASSIFICATION CHOLESTEROL FOR ADULTS CHILDREN/ADOLESCENTS* DESIRABLE: <200 MG/DL <170 MG/DL BORDER-LINE HIGH RISK: 200-239 MG/DL 170-199 MG/DL HIGH RISK: >240 MG/DL >200 MG/DL CLASS. FOR PRIMARY LDL CHOL PREVENTION: LDL CHOL-CHILD/ADOLESCENTS* DESIRABLE: <130 MG/DL <110 MG/DL BORDERLINE-HIGH RISK: 130- 159 MG/DL 110-129 MG/DL HIGH RISK: >160 MG/DL >130 MG/DL *CHILDREN AND ADOLESCENTS REPRESENTS INDIVIDUALA AGED 2-19 YEARS EXCLUSIVE. Neut# 3.2 % 2.0-7.8 [facility] ([facility] NORMAL RANGES Age WBC RBC HGB HCT MCV PLT Adult M 4.1-10.9 4.20-6.30 12.0-18.0 37.0-51.0 80-97 140-440 Adult F 4.1-10.9 4.04-5.48 12.0-18.0 37.0-51.0 80-97 140-440 0 -1 Yr 5.0-20.0 3.9-5.9 15-18 MV: 44 MV: 91 MV: 277 2-9 Yr. 6.0-17.0 3.8-5.4 11-13 MV: 37 MV: 78 MV: 300 10 Yrs. 5.0-13.0 3.8-5.4 12-15 MV: 39 MV: 80 MV: 250 NOTE: * FOR ADULT BLACK MALES AND FEMALES, NORMAL WBC IS 2.9-7.7 K/ML * FOR ADULT BLACK MALES AND FEMALES, NORMAL RBC,HGB, AND HCT IS 5% LESS SOURCE FOR DATA: [employer] 1800 OPERATION MANUAL( AUTOMATED BLOOD COUNTS AND DIFF.) APPENDIX B-3 CHRONIC KIDNEY DISEASE STAGING PER NKF: MALE GFR INTERPRETATION: 20-49 YRS: >60 mL/min Normal 50-59 YRS: >56 mL/min Normal 60-69 YRS: >49 mL/min Normal 70-79 YRS: >42 mL/min Normal 80 and above >35 mL/min Normal FEMALE GRF INTERPRETATION: 20-39 YRS: >60 mL/min Normal 40-49 YRS: >58 mL/min Normal 50-59 YRS: >51 mL/min Normal 60-69 YRS: >45 mL/min Normal 70-79 YRS: >39 mL/min Normal 80 and above >32 mL/min NormalCLASSIFICATION CHOLESTEROL FOR ADULTS CHILDREN/ADOLESCENTS* DESIRABLE: <200 MG/DL <170 MG/DL BORDER-LINE HIGH RISK: 200-239 MG/DL 170-199 MG/DL HIGH RISK: >240 MG/DL >200 MG/DL CLASS. FOR PRIMARY LDL CHOL PREVENTION: LDL CHOL-CHILD/ADOLESCENTS* DESIRABLE: <130 MG/DL <110 MG/DL BORDERLINE-HIGH RISK: 130- 159 MG/DL 110-129 MG/DL HIGH RISK: >160 MG/DL >130 MG/DL *CHILDREN AND ADOLESCENTS REPRESENTS INDIVIDUALA AGED 2-19 YEARS EXCLUSIVE. Lym# 1.7 10E3/uL 0.6-4.1 [facility] ([facility] NORMAL RANGES Age WBC RBC HGB HCT MCV PLT Adult M 4.1-10.9 4.20-6.30 12.0-18.0 37.0-51.0 80-97 140-440 Adult F 4.1-10.9 4.04-5.48 12.0-18.0 37.0-51.0 80-97 140-440 0 -1 Yr 5.0-20.0 3.9-5.9 15-18 MV: 44 MV: 91 MV: 277 2-9 Yr. 6.0-17.0 3.8-5.4 11-13 MV: 37 MV: 78 MV: 300 10 Yrs. 5.0-13.0 3.8-5.4 12-15 MV: 39 MV: 80 MV: 250 NOTE: * FOR ADULT BLACK MALES AND FEMALES, NORMAL WBC IS 2.9-7.7 K/ML * FOR ADULT BLACK MALES AND FEMALES, NORMAL RBC,HGB, AND HCT IS 5% LESS SOURCE FOR DATA: [employer] 1800 OPERATION MANUAL( AUTOMATED BLOOD COUNTS AND DIFF.) APPENDIX B-3 CHRONIC KIDNEY DISEASE STAGING PER NKF: MALE GFR INTERPRETATION: 20-49 YRS: >60 mL/min Normal 50-59 YRS: >56 mL/min Normal 60-69 YRS: >49 mL/min Normal 70-79 YRS: >42 mL/min Normal 80 and above >35 mL/min Normal FEMALE GRF INTERPRETATION: 20-39 YRS: >60 mL/min Normal 40-49 YRS: >58 mL/min Normal 50-59 YRS: >51 mL/min Normal 60-69 YRS: >45 mL/min Normal 70-79 YRS: >39 mL/min Normal 80 and above >32 mL/min NormalCLASSIFICATION CHOLESTEROL FOR ADULTS CHILDREN/ADOLESCENTS* DESIRABLE: <200 MG/DL <170 MG/DL BORDER-LINE HIGH RISK: 200-239 MG/DL 170-199 MG/DL HIGH RISK: >240 MG/DL >200 MG/DL CLASS. FOR PRIMARY LDL CHOL PREVENTION: LDL CHOL-CHILD/ADOLESCENTS* DESIRABLE: <130 MG/DL <110 MG/DL BORDERLINE-HIGH RISK: 130- 159 MG/DL 110-129 MG/DL HIGH RISK: >160 MG/DL >130 MG/DL *CHILDREN AND ADOLESCENTS REPRESENTS INDIVIDUALA AGED 2-19 YEARS EXCLUSIVE. MXD# 0.5 10E3/uL 0.0-1.8 [facility] ([facility] NORMAL RANGES Age WBC RBC HGB HCT MCV PLT Adult M 4.1-10.9 4.20-6.30 12.0-18.0 37.0-51.0 80-97 140-440 Adult F 4.1-10.9 4.04-5.48 12.0-18.0 37.0-51.0 80-97 140-440 0 -1 Yr 5.0-20.0 3.9-5.9 15-18 MV: 44 MV: 91 MV: 277 2-9 Yr. 6.0-17.0 3.8-5.4 11-13 MV: 37 MV: 78 MV: 300 10 Yrs. 5.0-13.0 3.8-5.4 12-15 MV: 39 MV: 80 MV: 250 NOTE: * FOR ADULT BLACK MALES AND FEMALES, NORMAL WBC IS 2.9-7.7 K/ML * FOR ADULT BLACK MALES AND FEMALES, NORMAL RBC,HGB, AND HCT IS 5% LESS SOURCE FOR DATA: [employer] 1800 OPERATION MANUAL( AUTOMATED BLOOD COUNTS AND DIFF.) APPENDIX B-3 CHRONIC KIDNEY DISEASE STAGING PER NKF: MALE GFR INTERPRETATION: 20-49 YRS: >60 mL/min Normal 50-59 YRS: >56 mL/min Normal 60-69 YRS: >49 mL/min Normal 70-79 YRS: >42 mL/min Normal 80 and above >35 mL/min Normal FEMALE GRF INTERPRETATION: 20-39 YRS: >60 mL/min Normal 40-49 YRS: >58 mL/min Normal 50-59 YRS: >51 mL/min Normal 60-69 YRS: >45 mL/min Normal 70-79 YRS: >39 mL/min Normal 80 and above >32 mL/min NormalCLASSIFICATION CHOLESTEROL FOR ADULTS CHILDREN/ADOLESCENTS* DESIRABLE: <200 MG/DL <170 MG/DL BORDER-LINE HIGH RISK: 200-239 MG/DL 170-199 MG/DL HIGH RISK: >240 MG/DL >200 MG/DL CLASS. FOR PRIMARY LDL CHOL PREVENTION: LDL CHOL-CHILD/ADOLESCENTS* DESIRABLE: <130 MG/DL <110 MG/DL BORDERLINE-HIGH RISK: 130- 159 MG/DL 110-129 MG/DL HIGH RISK: >160 MG/DL >130 MG/DL *CHILDREN AND ADOLESCENTS REPRESENTS INDIVIDUALA AGED 2-19 YEARS EXCLUSIVE. MPV 9.9 fL 9.0-13.0 [facility] NORMAL RANGES Age WBC RBC HGB HCT MCV PLT Adult M 4.1-10.9 4.20-6.30 12.0-18.0 37.0-51.0 80-97 140-440 Adult F 4.1-10.9 4.04-5.48 12.0-18.0 37.0-51.0 80-97 140-440 0 -1 Yr 5.0-20.0 3.9-5.9 15-18 MV: 44 MV: 91 MV: 277 2-9 Yr. 6.0-17.0 3.8-5.4 11-13 MV: 37 MV: 78 MV: 300 10 Yrs. 5.0-13.0 3.8-5.4 12-15 MV: 39 MV: 80 MV: 250 NOTE: * FOR ADULT BLACK MALES AND FEMALES, NORMAL WBC IS 2.9-7.7 K/ML * FOR ADULT BLACK MALES AND FEMALES, NORMAL RBC,HGB, AND HCT IS 5% LESS SOURCE FOR DATA: [employer] 1800 OPERATION MANUAL( AUTOMATED BLOOD COUNTS AND DIFF.) APPENDIX B-3 CHRONIC KIDNEY DISEASE STAGING PER NKF: MALE GFR INTERPRETATION: 20-49 YRS: >60 mL/min Normal 50-59 YRS: >56 mL/min Normal 60-69 YRS: >49 mL/min Normal 70-79 YRS: >42 mL/min Normal 80 and above >35 mL/min Normal FEMALE GRF INTERPRETATION: 20-39 YRS: >60 mL/min Normal 40-49 YRS: >58 mL/min Normal 50-59 YRS: >51 mL/min Normal 60-69 YRS: >45 mL/min Normal 70-79 YRS: >39 mL/min Normal 80 and above >32 mL/min NormalCLASSIFICATION CHOLESTEROL FOR ADULTS CHILDREN/ADOLESCENTS* DESIRABLE: <200 MG/DL <170 MG/DL BORDER-LINE HIGH RISK: 200-239 MG/DL 170-199 MG/DL HIGH RISK: >240 MG/DL >200 MG/DL CLASS. FOR PRIMARY LDL CHOL PREVENTION: LDL CHOL-CHILD/ADOLESCENTS* DESIRABLE: <130 MG/DL <110 MG/DL BORDERLINE-HIGH RISK: 130- 159 MG/DL 110-129 MG/DL HIGH RISK: >160 MG/DL >130 MG/DL *CHILDREN AND ADOLESCENTS REPRESENTS INDIVIDUALA AGED 2-19 YEARS EXCLUSIVE. ID Date Data Source [id number] 03/12/2020 08:48:00 AM EST [facility] ([facility] Name Value Range Interpretation Code Description Data Deepa rce(s) Supporting Document(s) Hemoglobin A1c/Hemoglobin.total in Blood 5.6 % 4.50-6.20 [facility] ([facility] ID Date Data Source [id number] 01/22/2020 03:03:04 PM EDT [facility] INFORMATIONPatient MRN Name Date of Age Gend*PT [id number] Sara Odell 1955 64 years F ---PT Location Admission Date/Time Visit ID Attending Provider --- --- --- --- EPI ID CSN Admitting Provider [id number] ---01/22/20 Sara Odell [id number] female 64 yearsPertinent History:Sara is here for a follow up appointment and a clinical breast exam, withimaging. She was initially seen by Dr. Blanco in January 2018 for abnormalbreast imaging. She has history bilateral implants for augmentation, she wasseen she had been placed on antibiotics for possible left breast cellulitis ormastitis. She had a palpable lump near the left areola, the mammogram showedincreased breast density likely compatible cellulitis and the ultrasound showed2 adjacent nodular structures, 1 measuring 1.2 centimeters in the other 0.8centimeters, they could not tell if these were nodules or debris but they feltit fit the picture of cellulitis. An MRI was then obtained showing bilateraldilated retroareolar or some complex intraductal fluid, they felt this wasinflammatory, she did have asymmetry and they recommended a left breast cyst induct aspiration. Repeat imaging here showed a complex cyst versus solid noduleat the 9 o'clock position the 6 o'clock position in the left breast, a biopsywas done of one of the nodules at the 9 o'clock position which was benign. did not feel the 2nd lesion needed to be biopsied if this lesion wasbenign.She has hx of bilateral breast augmentation 2006 in [place]. Smooth salineimplants.LEFT breast 0900 US guided core biopsy 01/2018:Veronica ductal histiocytes along with fibrosis suggestive of cysts/duct rupture, NOcarcinoma or significant atypiaPathology concordant with imaging , 1st parity age 28, menarche 11, menopause 2012PC had breast cancer in her 50sFather had pancreatic cancerSubjective:HPI / Interval history:Sara Odell is a very pleasant 64 yearsyo female here today for annualbilateral screening mammogram which is benign, BI-RADS 2 B. In addition,short-term 6- month left breast ultrasound as we have been following 2 nodules inher left breast. These remain stable and unchanged. This completes two-yearmonitoring of these nodules. At this point, we can return to routine annualscreening mammograms.She inquires about her breast implants, and if imaging is needed are recommendedas they are 13 years old. I did tell her that MRI could be obtained if therewere any concern, but I do not think that is necessary at this point as she hasno issues with the implants at this time.She has no complaints today. She does perform self breast/chest wallexamination and notes no change. She denies feeling any new lumps, bumps,denies breast pain, tenderness or nipple discharge.Her appetite is good, she is eating and drinking well, no change in bowelpattern, no new headaches, no vertigo, no new shortness of breath, no new chestpains, no unintentional weight loss, and no new bony aches or pains that wouldbe worrisome for metastatic disease.Current Meds:Current Outpatient Medications: albuterol (PROVENTIL) (2.5 MG/3ML) 0.083% nebulizer solution, as needed,Disp: , Rfl: albuterol (VENTOLIN HFA) 108 (90 Base) MCG/ACT inhaler, as needed, Disp: ,Rfl: atorvastatin (LIPITOR) 40 MG tablet, Take 40 mg by mouth daily , Disp: , Rfl: cetirizine (ZYRTEC) 10 MG tablet, Take 10 mg by mouth daily, Disp: , Rfl: Cholecalciferol (VITAMIN D) 2000 units tablet, Take 2,000 Units by mouthdaily , Disp: , Rfl: escitalopram (LEXAPRO) 20 MG tablet, Take 20 mg by mouth daily , Disp: , Rfl: estradiol (ESTRACE VAGINAL) 0.1 MG/GM vaginal cream, Insert 0.1 g into thevagina 3 (three) times a week , Disp: , Rfl: levothyroxine (SYNTHROID, LEVOTHROID) 75 MCG tablet, Take 75 mcg by mouthdaily, Disp: , Rfl: Mirabegron ER 50 MG TB24, Take 50 mg by mouth daily , Disp: , Rfl: montelukast (SINGULAIR) 10 MG tablet, Take 10 mg by mouth nightly , Disp: ,Rfl: nitrofurantoin, macrocrystal-monohydrate, (MACROBID) 100 MG capsule, Take onetablet as needed with intercourse, Disp: , Rfl: omeprazole (PRILOSEC) 20 MG capsule, Take 20 mg by mouth daily , Disp: , Rfl: valACYclovir (VALTREX) 500 MG tablet, Take 500 mg by mouth as needed , Disp:, Rfl:Allergies:AllergiesAllergen Reactions Amoxicillin-Pot Clavulanate Nausea And Vomiting Moxifloxacin Hcl In Nacl RashPast Medical History:Diagnosis Date Asthma Salcido esophagus Bronchitis Depression Disease of thyroid gland Hypercalcemia Hyperlipidemia Hyperparathyroidism Hypothyroidism SCC (squamous cell carcinoma) MOLE REMOVAL Sleep apneaFamily HistoryProblem Relation Age of Onset Hypertension Mother Depression Mother Anxiety disorder Mother Pancreatic cancer Father 83 Diabetes Sister Breast cancer Cousin 50's? Healthy, No Significant History Daughter Healthy, No Significant History Son Healthy, No Significant History SisterSocial HistorySocioeconomic History Marital status: Spouse name: Not on file Number of children: 2 Years of education: Not on file Highest education level: Not on fileOccupational History Occupation: RetiredSocial Needs Financial resource strain: Patient refused Food insecurity: Worry: Patient refused Inability: Patient refused Transportation needs: Medical: Patient refused Non-medical: Patient refusedTobacco Use Smoking status: Never Smoker Smokeless tobacco: Never UsedSubstance and Sexual Activity Alcohol use: Yes Comment: occasionally Drug use: No Sexual activity: Not on fileLifestyle Physical activity: Days per week: Not on file Minutes per session: Not on file Stress: Not on fileRelationships Social connections: Talks on phone: Not on file Gets together: Not on file Attends yarsanism service: Not on file Active member of club or organization: Not on file Attends meetings of clubs or organizations: Not on file Relationship status: Not on file Intimate partner violence: Fear of current or ex partner: Not on file Emotionally abused: Not on file Physically abused: Not on file Forced sexual activity: Not on fileOther Topics Concern Bike Helmet Not Asked History of Falls Not Asked Self-Exams Not Asked Caffeine Concern Not Asked Hobby Hazards Not Asked Sleep Concern Not Asked Daily Calcium Supplement Not Asked Lead Exposure Not Asked Special Diet Not Asked Daily Vitamin D Supplement Not Asked Service Not Asked Stress Concern Not Asked Domestic Violence in home Not Asked Radon exposure Not Asked Weight Concern Not Asked Exercise Not Asked Seat Belt Not Asked Well water Not Asked Firearms in home Not AskedSocial History Narrative Not on filePast Surgical History:Procedure Laterality Date BLADDER SURGERY BREAST SURGERY Bilateral 2006 implants DILATION AND CURETTAGE OF UTERUS X2 HYSTERECTOMY ovaries are in MOLE REMOVAL BENIGN AND 1 MOLE SCC SINUS SURGERY 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 No signs of apparent distress present. Alert andoriented. Patient is a good historian.Head/Face: Atraumatic, normocephalic and no lesions or masses.Eyes: Conjunctivae pink.No icterus of the sclerae bilaterally.ENMT: Oral mucosa: pink and moist with no lesions.Neck: Supple. Palpation reveals no lymphadenopathy, swelling or tenderness.Trachea midline.Resp: Respirations are regular. Lungs are clear bilaterally.CV: Rate is regular. Rhythm is regular. Extremities: No clubbing, cyanosis oredema.Breasts: Breast exam was performed while patient was in a supine position and gina sitting postion. Breasts are Large in size and symmetrical. Implants notedand appear fully intact. No tethering noted. No dimpling of the breastsbilaterally. Breasts are normal and no dominant mass on both breasts. Bilateralinfraclavicular nodes are non- palpable. Nipples: There is no nipple discharge,dimpling or nipple retractions. Axillae: Axillae are normal to palpationbilaterally, but no lymphadenopathy of the axillae.Musculo: Walks with a normal gait for age. Upper Extremities: Full ROMbilaterally. Lower Extremities: Full ROM bilaterally.Skin: No jaundice, lesion, rash.Neuro: Upper Extremities: Lower Extremities: Neuro reveals no focal deficits.Today's imaging reveals:CLINICAL HISTORY: History of abnormal imaging. Last Clinical Breast Exam: 2017. 10 yr risk Tyrer-Cuzick Model: 4.2% (Average: 3.2%) Lifetime riskTyrer-Cuzick Model: 13.7% (Average: 10.3%). COMPARISON: 12/11/2018 and 02/09/2016 TECHNIQUE: Digital Breast Tomosynthesis of each breast was obtained.Craniocaudal views were obtained digitally and reviewed by CAD. The exam wasperformed with and without implant displacement technique. Prior to theprocedure, the patient read andsigned a "patient advisory/consent for mammography for patients with breastimplants" form. FINDINGS: There are scattered fibroglandular densities. There are bilateralbreast implants. There is a biopsy clip in the medial left breast.No dominant mass, suspicious microcalcifications, architectural distortion orskin/nipple thickening or retraction is seen. There are no significant changes compared to the prior study/studies. IMPRESSION: No mammographic evidence of malignancy.A follow up mammogram is recommended in one year as per the [employer]. ACR Breast Density: B- Scattered fibroglandular density CLASSIFICATION: BI-RADS 2 - benign findings ResultCode: BR 2 BCLINICAL HISTORY: Screening mammogram. Last Clinical Breast Exam: 2016 . 10 yrrisk Tyrer-Cuzick Model: 4.2% (Average: 3.2%) Lifetime risk Tyrer-Cuzick Model:13.7% (Average: 10.3%). Left breast nodules. COMPARISON: 07/08/2019 FINDINGS: Multiple real-time sonographic images of the retroareolar left breastare obtained at 9 o'clock. There is a hypoechoic, oval-shaped, smoothly marginated solid nodule measuring 7x 7 x 3 mm, previously 6 x 8 x 3 mm. This was sampled in 2018. Alsodislocation is a second hypoechoic, oval-shaped, smoothly marginated solidno dule measuring 5 x 7 x 4mm, previously 6 x 6 x 4 mm. No significant change since 01/2018. No otherlesions are seen. IMPRESSION: Two year stability of benign-appearing nodules in the left breast.Return to routine screening.Assessment / Plan:1. Screening mammogram, encounter for ([facility] or External) Mammography 3Dscreening bilateral with CAD & henrry ([facility] or External) Mammography 3D screening bilateral with CAD & tomoAssessment: Patient has a benign breast exam and benign bilateral mammogram andstable left sonogram. This completes 2-year sonographic monitoring of her leftbreast nodules.Follow-up: The patient will follow-up in 1 year with a bilateral screeningmammogram.At today's appointment we discussed the physical examination and imagingfindings, and any questions they had were answered.We look for to seeing at her next appointment and we would be happy to see herin the interim if needed. 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 I have followed protocolsestablished with them, and periodically review charts with them.Certain parts of this note may have been carried over from prior notes tomaintain patient's pertinent medical history and continuity of care. The detailswere verified and edited as appropriate.Signature: Prosper Mullins NPDate: January 22, 2020Time: 3:02 PMThis document or parts of this document, were dictated using Cent[employer] software. A reasonable attempt at proofreading has beenmade to minimize errors. Please call with any questions or corrections. Name Value Range Interpretation Code Description Data [facility] rce(s) Supporting Document(s) ID Date Data Source [id number] 01/22/2020 01:49:00 PM EDT [facility] ULTR ASOUND BREAST LEFT LIMITEDCLINICAL HISTORY: Screening mammogram. Last Clinical Breast Exam: 2016 . 10 yr risk Tyrer-Cuzick Model: 4.2% (Average: 3.2%) Lifetime risk Tyrer-Cuzick Model: 13.7% (Average: 10.3%). Left breast nodules.COMPARISON: 07/08/2019FINDINGS: Multiple real-time sonographic images of the retroareolar left breast are obtained at 9 o'clock.There is a hypoechoic, oval-shaped, smoothly marginated solid nodule measuring 7 x 7 x 3 mm, previously 6 x 8 x 3 mm. This was sampled in 2018. Also dislocation is a second hypoechoic, oval-shaped, smoothly marginated solid nodule measuring 5 x 7 x 4 mm, previously 6 x 6 x 4 mm. No significant change since 01/2018. No other lesions are seen.IMPRESSION: Two year stability of benign-appearing nodules in the left breast. Return to routine screening.Dictated by: STEPHANIE MOON M.D. on 01/22/2020 Transcribed by: olvin on <<TranscriptionDateTime1>>CDS G code: ,CDS Modifier: ,cc: Name Value Range Interpretation Code Description Data [facility] rce(s) Supporting Document(s) ID Date Data Source [id number] 01/22/2020 01:13:00 PM EDT [facility] DIGI VILLA MAMMOGRAM SCREEN BL W CAD W TOMOSYNTHESISCLINICAL HISTORY: History of abnormal imaging. Last Clinical Breast Exam: 2017 . 10 yr risk Tyrer-Cuzick Model: 4.2% (Average: 3.2%) Lifetime risk Tyrer-Cuzick Model: 13.7% (Average: 10.3%).COMPARISON: 12/11/2018 and 02/09/2016TECHNIQUE: Digital Breast Tomosynthesis of each breast was obtained. Craniocaudal views were obtained digitally and reviewed by CAD. The exam was performed with and without implant displacement technique. Prior to the procedure, the patient read and signed a "patient advisory/consent for mammography for patients with breast implants" form.FINDINGS: There are scattered fibroglandular densities. There are bilateral breast implants. There is a biopsy clip in the medial left breast.No dominant mass, suspicious microcalcifications, architectural distortion or skin/nipple thickening or retraction is seen.There are no significant changes compared to the prior study/studies.IMPRESSION: No mammographic evidence of malignancy.A follow up mammogram is recommended in one year as per the [employer].ACR Breast Density: B- Scattered fibroglandular densityCLASSIFICATION: BI-RADS 2 - benign findingsResultCode: BR 2 BDISCLAIMER: According to the [employer] and the [employer], any patient with a lifetime risk assessment greater than 20% or patients with dense breasts (heterogeneously or extremely dense), may benefit from additional screening tests for breast cancer. Further screening tests for patients with dense breasts (heterogeneously or extremely dense) should be based upon the patient's breast cancer risk status. All patients, having their mammogram with [facility], with a lifetime risk assessment greater than 20% or with dense breasts, will be given the opportunity to meet with our certified breast health navigator to discuss their risk and further imaging options.Further screening test includes Ultrasound and MR (Magnetic Resonance) imaging.Dictated by: STEPHANIE MOON M.D. on 01/22/2020 Transcribed by: olvin on <<TranscriptionDateTime1>>CDS G code: , ,CDS Modifier: , ,cc: Name Value Range Interpretation Code Description Data Deepa rce(s) Supporting Document(s) Procedure Social History Code Duration Value Status Description Data Source(s ) Smoking 02/09/2021 12:00:00 AM EDT Patient has never smoked co mpleted Patient has never smoked [facility] ([facility], ) Alcohol intake 01/10/2021 12:00:00 AM EDT Current drinker of al cohol (finding) completed Current drinker of alcohol (finding) [facility] Tobacco use and exposure 01/10/2021 12:00:00 AM EDT Never used co mpleted Never used [facility] Smoking 01/10/2021 12:00:00 AM EDT Never smoker completed Never s nesarthak [facility] Alcohol intake 12/25/2020 12:00:00 AM EDT Current drinker of al cohol (finding) completed Current drinker of alcohol (finding) [facility] Alcohol intake 12/18/2020 12:00:00 AM EDT Current drinker of al cohol (finding) completed Current drinker of alcohol (finding) [facility] Alcohol intake 11/25/2020 12:00:00 AM EDT Current drinker of al cohol (finding) completed Current drinker of alcohol (finding) [facility] Smoking 11/19/2020 12:00:00 AM EDT Patient has never smoked co mpleted Patient has never smoked [facility] ([facility]) Alcohol intake 09/30/2020 12:00:00 AM EDT Current drinker of al cohol (finding) completed Current drinker of alcohol (finding) [facility] Alcohol intake 09/25/2020 12:00:00 AM EDT Current drinker of al cohol (finding) completed Current drinker of alcohol (finding) [facility] Alcohol intake 09/04/2020 12:00:00 AM EDT Current drinker of al cohol (finding) completed Current drinker of alcohol (finding) [facility] Alcohol intake 08/27/2020 12:00:00 AM EDT Current drinker of al cohol (finding) completed Current drinker of alcohol (finding) [facility] Alcohol intake 08/25/2020 12:00:00 AM EDT Current drinker of al cohol (finding) completed Current drinker of alcohol (finding) [facility] Alcohol intake 08/07/2020 12:00:00 AM EDT Current drinker of al cohol (finding) completed Current drinker of alcohol (finding) [facility] Alcohol intake 07/10/2020 12:00:00 AM EST Yes completed [facility] Smoking 07/10/2020 12:00:00 AM EST Never smoker completed Never s ade [facility] Alcohol intake 06/10/2020 12:00:00 AM EST Current drinker of al cohol (finding) completed Current drinker of alcohol (finding) [facility] Vital Signs ID Date Data Source UNK Name Value Range Interpretation Code Description Data Source(s) Systolic blood pressure 128 mm[Hg] 128 mm[Hg] M EDENT ([facility]) RT Arm Diastolic blood pressure 62 mm[Hg] 62 mm[Hg] [facility] ([facility]) RT Arm Heart rate 68 /min 68 /min [facility] ([facility]) Body height 63.25 [in_i] 63.25 [in_i] [facility] ([facility]) 5'3.25" Body weight 139.00 [lb_av] 139.00 [lb_av] MEDEN T ([facility]) Body mass index (BMI) [Ratio] 24.4 kg/m2 24.4 k g/m2 [facility] ([facility]) Aston body weight 120 [lb_av] 120 [lb_av] MEDEN T ([facility]) Body weight 62.597 kg 62.597 kg [facility] ([facility]) Body surface area Derived from formula 1.67 m2 1.67 m2 [facility] ([facility]) Systolic blood pressure 110 mm[Hg] 110 mm[Hg] EDENT ([facility]) Diastolic blood pressure 70 mm[Hg] 70 mm[Hg] [facility] ([facility]) Heart rate 90 /min 90 /min [facility] ([facility]) Oxygen saturation in Arterial blood by Pulse oximetry 98 % 98 % [facility] ([facility]) Body height 64 [in_i] 64 [in_i] [facility] 5'4" Body weight 138.00 [lb_av] 138.00 [lb_av] MEDEN T ([facility]) Body mass index (BMI) [Ratio] 23.7 kg/m2 23.7 k g/m2 [facility] ([facility]) Respiratory rate 16 /min 16 /min [facility] ( [facility]) Heart rate 70 /min 70 /min [facility] Systolic blood pressure 124 mm[Hg] 124 mm[Hg] M EDENT ([facility]) Diastolic blood pressure 68 mm[Hg] 68 mm[Hg] [facility] ([facility]) Body height 64 [in_i] 64 [in_i] [facility] 5'4" Body weight 137.00 [lb_av] 137.00 [lb_av] MEDEN T ([facility]) Oxygen saturation in Arterial blood by Pulse oximetry 99 % 99 % [facility] ([facility]) Body mass index (BMI) [Ratio] 23.5 kg/m2 23.5 k g/m2 [facility] ([facility]) Diastolic blood pressure 72 mm[Hg] 72 mm[Hg] [facility] ([facility]) Heart rate 84 /min 84 /min [facility] ([facility]) Body height 63.25 [in_i] 63.25 [in_i] [facility] ([facility] 5'3.25" Body weight 138.00 [lb_av] 138.00 [lb_av] MEDEN T ([facility]) Body mass index (BMI) [Ratio] 24.3 kg/m2 24.3 k g/m2 [facility] ([facility]) Systolic blood pressure 116 mm[Hg] 116 mm[Hg] [facility] ([facility]) Body height 63.25 [in_i] 63.25 [in_i] [facility] ([facility] 5'3.25" Systolic blood pressure 122 mm[Hg] 122 mm[Hg] [facility] RT Arm Diastolic blood pressure 68 mm[Hg] 68 mm[Hg] MED[facility] ([facility]) RT Arm Heart rate 87 /min 87 /min [facility] ([facility]) Body weight 147.00 [lb_av] 147.00 [lb_av] MEDEN T ([facility]) Body mass index (BMI) [Ratio] 25.8 kg/m2 25.8 k g/m2 [facility] ([facility]) Systolic blood pressure 136 mm[Hg] 136 mm[Hg] M EDENT ([facility] Diastolic blood pressure 80 mm[Hg] 80 mm[Hg] [facility] ([facility] Body temperature 97.6 [degF] 97.6 [degF] [facility] ([facility] Heart rate 100 /min 100 /min [facility] ([facility] Respiratory rate 14 /min 14 /min [facility] ( [facility] Body height 64 [in_i] 64 [in_i] [facility] ([facility] 5'4" Body weight 166.00 [lb_av] 166.00 [lb_av] MEDEN T ([facility] Aston body weight 120 [lb_av] 120 [lb_av] MEDEN T ([facility] Body mass index (BMI) [Ratio] 28.5 kg/m2 28.5 k g/m2 [facility] ([facility] Oxygen saturation in Arterial blood by Pulse oximetry 95 % 95 % [facility] ([facility] Systolic blood pressure 116 mm[Hg] 116 mm[Hg] M EDENT ([facility] Diastolic blood pressure 72 mm[Hg] 72 mm[Hg] [facility] ([facility] Body temperature 97.6 [degF] 97.6 [degF] [facility] ([facility] Heart rate 80 /min 80 /min [facility] ([facility] Respiratory rate 12 /min 12 /min [facility] ( [facility] Body height 64 [in_i] 64 [in_i] [facility] ([facility] 5'4" Body weight 162.00 [lb_av] 162.00 [lb_av] MEDEN T ([facility] Aston body weight 120 [lb_av] 120 [lb_av] MEDEN T ([facility] Body mass index (BMI) [Ratio] 27.8 kg/m2 27.8 k g/m2 [facility] ([facility] Oxygen saturation in Arterial blood by Pulse oximetry 96 % 96 % [facility] ([facility] Systolic blood pressure 118 mm[Hg] 118 mm[Hg] [facility] Diastolic blood pressure 62 mm[Hg] 62 mm[Hg] [facility] Heart rate 64 /min 64 /min [facility] Respiratory rate 20 /min 20 /min [facility] Body height 161.3 cm 161.3 cm [facility] Body weight 73.029 kg 73.029 kg [facility] Body mass index (BMI) [Ratio] 28.07 kg/m2 28.07 kg/m2 [facility] Heart rate 92 /min 92 /min [facility] ([facility] Respiratory rate 12 /min 12 /min [facility] ( [facility] Body height 64 [in_i] 64 [in_i] [facility] ([facility] 5'4" Oxygen saturation in Arterial blood by Pulse oximetry 95 % 95 % [facility] ([facility] Systolic blood pressure 114 mm[Hg] 114 mm[Hg] M EDENT ([facility] Diastolic blood pressure 80 mm[Hg] 80 mm[Hg] [facility] ([facility] Body temperature 97.5 [degF] 97.5 [degF] [facility] ([facility] Body weight 164.00 [lb_av] 164.00 [lb_av] MEDEN T ([facility] [place] body weight 120 [lb_av] 120 [lb_av] [facility] T ([facility] Body mass index (BMI) [Ratio] 28.1 kg/m2 28.1 k g/m2 [facility] ([facility] Body weight 160.00 [lb_av] 160.00 [lb_av] [facility] T ([facility] Heart rate 64 /min 64 /min [facility] ([facility] [place] body weight 120 [lb_av] 120 [lb_av] MEDEN T ([facility] Respiratory rate 12 /min 12 /min [facility] ( [facility] Body height 64 [in_i] 64 [in_i] [facility] ([facility] 5'4" Oxygen saturation in Arterial blood by Pulse oximetry 98 % 98 % [facility] Body mass index (BMI) [Ratio] 27.5 kg/m2 27.5 k g/m2 [facility] ([facility] Systolic blood pressure 110 mm[Hg] 110 mm[Hg] M EDENT [facility] Diastolic blood pressure 64 mm[Hg] 64 mm[Hg] [facility] Body temperature 97.4 [degF] 97.4 [degF] [facility] Body surface area Derived from formula 1.79 m2 1.79 m2 [facility] ([facility]) Systolic blood pressure 118 mm[Hg] 118 mm[Hg] M EDENT ([facility]) Body weight 73.483 kg 73.483 kg [facility] ([facility]) Aston body weight 120 [lb_av] 120 [lb_av] MEDEN T ([facility]) Diastolic blood pressure 78 mm[Hg] 78 mm[Hg] [facility] ([facility]) Heart rate 80 /min 80 /min [facility] ([facility]) Oxygen saturation in Arterial blood by Pulse oximetry 96 % 96 % [facility] ([facility]) Body temperature 96.8 [degF] 96.8 [degF] [facility] Body height 64 [in_i] 64 [in_i] [facility] 5'4" Body weight 162.00 [lb_av] 162.00 [lb_av] [facility] T ([facility]) Body mass index (BMI) [Ratio] 27.8 kg/m2 27.8 k g/m2 [facility] ([facility]) ID Date Data Source [id number] 02/14/2021 01:02:22 AM EDT [facility] Name Value Range Interpretation Code Description Data Source(s) WEIGHT RECORDED 139 lb 139 lb [facility] ID Date Data Source [id number] 01/10/2021 09:20:34 AM EDT [facility] Value Range Interpretation Code Description Data Source(s) WEIGHT RECORDED 134 lb 134 lb [facility] ID Date Data Source [id number] 10/02/2020 02:05:29 PM EDT [facility] Value Range Interpretation Code Description Data Source(s) WEIGHT RECORDED 139.2 lb 139.2 lb [facility] ID Date Data Source [id number] 09/28/2020 04:08:27 PM EDT [facility] Value Range Interpretation Code Description Data Source(s) WEIGHT RECORDED 138.8 lb 138.8 lb [facility] ID Date Data Source [id number] 09/04/2020 04:42:44 PM EDT [facility] Value Range Interpretation Code Description Data Source(s) WEIGHT RECORDED 142 lb 142 lb [facility] ID Date Data Source [id number] 08/27/2020 01:18:04 PM EDT [facility] Value Range Interpretation Code Description Data Source(s) WEIGHT RECORDED 140 lb 140 lb [facility] Body height Measured 63.5 in 63.5 in [facility] ID Date Data Source [id number] 08/13/2020 02:35:08 PM EDT [facility] Value Range Interpretation Code Description Data Source(s) WEIGHT RECORDED 152.8 lb 152.8 lb [facility] ID Date Data Source [id number] 08/10/2020 10:20:24 AM EDT [facility] Value Range Interpretation Code Description Data Source(s) WEIGHT RECORDED 147.2 lb 147.2 lb [facility] Patient Treatment Plan of Care Planned Activity Planned Date Details Description Data Source (s) Potassium Chloride 10 MEQ Extended Release Oral Capsul e 12/18/2020 12:00:[address] [facility] ospital Dexamethasone 4 MG Oral Tablet 12/04/2020 12:00:00 AM [facility] Ondansetron 8 MG Oral Tablet 12/04/2020 12:00:00 AM [facility] Potassium Chloride [facility] 10 MEQ Oral Tablet Extended Release (K-DUR) 11/25/2020 12:00:00 AM [facility] Potassium Chloride 10 MEQ Extended Release Oral Capsul e 11/25/2020 12:00:[address] [facility]spital Lactulose 667 MG/ML Oral Solution 10/20/2020 12:00:00 AM [facility] Acyclovir 0.05 MG/MG Topical Ointment 09/25/2020 12:00:00 AM [facility] 24 HR mirabegron 50 MG Extended Release Oral Tablet 09/15/19 12:00:00 AM [facility] Lidocaine 25 MG/ML / Prilocaine 25 MG/ML Topical Cream 09/04/2020 12:00:[address] [facility] Polysaccharide iron complex 150 MG Oral Capsule 09/04/2020 12:00:00 AM [facility] valacyclovir 500 MG Oral Tablet 09/04/2020 12:00:00 AM [facility] Lactulose 667 MG/ML Oral Solution 09/04/2020 12:00:00 AM [facility] sodium chloride (preservative free) 0.9 % flush 3 mL 021 09:00:00 AM [facility] sodium chloride 0.9 % bag 3-20 mL 08/27/2020 07:07:56 AM [facility] Prochlorperazine 10 MG Oral Tablet 08/14/2020 12:00:00 AM [facility] Ondansetron 8 MG Oral Tablet 08/14/2020 12:00:00 AM [facility] Lactulose 83.3 MG/ML Oral Solution 07/10/2020 12:00:00 AM [facility] Sulfamethoxazole 800 MG / Trimethoprim 160 MG Oral Tab let 07/08/2020 12:00:00 AM Health system Omeprazole 40 MG Delayed Release Oral Capsule 06/25/2020 12:00:00 A M EST [facility] solifenacin succinate 5 MG Oral Tablet 06/10/2020 12:00:00 AM [facility] solifenacin succinate 5 MG Oral Tablet 06/10/2020 12:00:00 AM [facility] valacyclovir 1000 MG Oral Tablet 04/03/2020 12:00:00 AM [facility] Stollings-3 Fatty Acids (FISH OIL) 1200 MG [facility] Psyllium (METAMUCIL FIBER SINGLES PO) [facility] Levothyroxine Sodium 0.075 MG Oral Tablet [facility] valacyclovir 500 MG Oral Tablet [facility] Omeprazole 20 MG Delayed Release Oral Capsule [facility]
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
[2021-03-23 15:36] LABS: BASO % 0.1 % (0.0-1.0); EOS # 0.1 10^3/uL (0.0-0.5); EOS % 1.6 % (0.0-3.0); HEMATOCRIT 33.6 % (36.0-47.0); HEMOGLOBIN 11.2 g/dl (12.0-15.5); LYMPH # 1.7 10^3/uL (1.5-5.0); LYMPH % 21.2 % (24.0-44.0); MEAN CORPUSCULAR HEMOGLOBIN 33.6 pg (27.0-33.0); MEAN CORPUSCULAR HGB CONC 33.3 g/dl (32.0-36.5); MEAN CORPUSCULAR VOLUME 100.9 fl (80.0-96.0); MONO # 0.6 10^3/uL (0.0-0.8); MONO % 6.9 % (2.0-8.0); NEUTROPHILS # 5.7 10^3/uL (1.5-8.5); NEUTROPHILS % 69.8 % (36.0-66.0); PLATELET COUNT, AUTOMATED 110 10^3/uL (150-450); RED BLOOD COUNT 3.33 10^6/uL (4.00-5.40); WHITE BLOOD COUNT 8.2 10^3/uL (4.0-10.0)
[2021-03-23 15:46] LABS: INR 0.95; PROTHROMBIN TIME 13.1 SECONDS (12.7-14.5)
[2021-03-23 15:47] LABS: PARTIAL THROMBOPLASTIN TIME 27.1 SECONDS (25.9-37.0)
--- OUTSIDE RECORDS SUMMARY | 2021-03-23 16:02 | CCD ---
Author Author [facility] Organization [facility] Address Unknown Phone Unavailable Care Team Providers Care Meat Soaker Name Role Phone Jorge, L Paulie FINANCIAL HEALTH COUNSELOR Unavailable Unavailable Jorge, L Paulie FINANCIAL HEALTH COUNSELOR Unavailable Unavailable Jorge, L Paulie FINANCIAL HEALTH COUNSELOR Unavailable Unavailable Jorge, L Paulie FINANCIAL HEALTH COUNSELOR Unavailable Unavailable Jorge, L Paulie FINANCIAL HEALTH COUNSELOR Unavailable Unavailable Jorge, L Paulie FINANCIAL HEALTH COUNSELOR Unavailable Unavailable Jorge, L Paulie FINANCIAL HEALTH COUNSELOR Unavailable Unavailable Jorge, L Paulie FINANCIAL HEALTH COUNSELOR Unavailable Unavailable Jorge, L Paulie FINANCIAL HEALTH COUNSELOR Unavailable Unavailable Jorge, L Paulie FINANCIAL HEALTH COUNSELOR Unavailable Unavailable Jorge, L Paulie FINANCIAL HEALTH COUNSELOR Unavailable Unavailable Jorge, L Paulie FINANCIAL HEALTH COUNSELOR Unavailable Unavailable Jorge, L Paulie FINANCIAL HEALTH COUNSELOR Unavailable Unavailable Jorge, L Paulie FINANCIAL HEALTH COUNSELOR Unavailable Unavailable Jorge, L Paulie FINANCIAL HEALTH COUNSELOR Unavailable Unavailable Jorge, L Paulie FINANCIAL HEALTH COUNSELOR Unavailable Unavailable Jorge, L Paulie FINANCIAL HEALTH COUNSELOR Unavailable Unavailable Jorge, L Paulie FINANCIAL HEALTH COUNSELOR Unavailable Unavailable Jorge, L Paulie FINANCIAL HEALTH COUNSELOR Unavailable Unavailable Jorge, L Paulie FINANCIAL HEALTH COUNSELOR Unavailable Unavailable Jorge, L Paulie FINANCIAL HEALTH COUNSELOR Unavailable Unavailable Jorge, L Paulie FINANCIAL HEALTH COUNSELOR Unavailable Unavailable Jorge, L Paulie FINANCIAL HEALTH COUNSELOR Unavailable Unavailable Jorge, L Paulie FINANCIAL HEALTH COUNSELOR Unavailable Unavailable Jorge, L Paulie FINANCIAL HEALTH COUNSELOR Unavailable Unavailable SYSTEM IN, NOT IN PROVIDER Unavailable Unavailable SENSKA, C SEBAS FINANCIAL HEALTH COUNSELOR Unavailable Unavailable SENSKA, C SEBAS FINANCIAL HEALTH COUNSELOR Unavailable Unavailable SENSKA, C SEBAS FINANCIAL HEALTH COUNSELOR Unavailable Unavailable SENSKA, C SEBAS FINANCIAL HEALTH COUNSELOR Unavailable Unavailable SENSKA, C SEBAS FINANCIAL HEALTH COUNSELOR Unavailable Unavailable SENSKA, C SEBAS FINANCIAL HEALTH COUNSELOR Unavailable Unavailable SENSKA, C SEBAS FINANCIAL HEALTH COUNSELOR Unavailable Unavailable SENSKA, C SEBAS FINANCIAL HEALTH COUNSELOR Unavailable Unavailable DERX, A JOVAN Unavailable Unavailable [...] Unavailable Khoa NÚÑEZ MD Unavailable Unavailable Khoa NÚEÑZ MD Unavailable Unavailable Khoa NÚÑEZ MD Unavailable Unavailable Khoa NÚÑEZ MD Unavailable Unavailable Khoa NÚÑEZ MD Unavailable Unavailable Khoa NÚÑEZ MD Unavailable Unavailable Khoa NÚÑEZ MD Unavailable Unavailable Khoa NÚÑEZ MD Unavailable Unavailable Koha NÚÑEZ MD Unavailable Unavailable Nisha LEÓN Unavailable Unavailable Jayme Winston Unavailable Unavailable PIYUSH PAZ Unavailable Unavailable Suzie VINSON Unavailable Unavailable Sophia MATTA MD Unavailable Unavailable Sophia MATTA MD Unavailable Unavailable Sophia MATTA MD Unavailable Unavailable Sophia MATTA MD Unavailable Unavailable Sophia MATTA MD Unavailable Unavailable MATTASophia DAWKINS MD Unavailable Unavailable MATTASophia DAWKINS MD Unavailable Unavailable Sophia MATTA MD Unavailable Unavailable Sophia MATTA MD Unavailable Unavailable Sophia MATTA MD Unavailable Unavailable Sophia MATTA MD Unavailable Unavailable Sophia MATTA MD Unavailable [...] Unavailable Gerson, F Janelle MD Unavailable Unavailable Gersno, F Janelle MD Unavailable Unavailable Gerson, F [...] Janelle MD Unavailable Unavailable Gerson, F Janelle WELDON Unavailable Unavailable Gerson, F Janelle WELDON Unavailable Unavailable Gerson, F Janelle WELDON Unavailable Unavailable Gerson F Janelle WELDON Unavailable Unavailable Gerson, F Janelle WELDON Unavailable Unavailable Gerson, F Janelle WELDON Unavailable Unavailable Gerson, F Janelle MD Unavailable Unavailable Gerson, F Janelle MD Unavailable Unavailable Harpreet, Prosper Unavailable Unavailable Harpreet, Prosper Unavailable Unavailable Harpreet, Prosper Unavailable Unavailable Harpreet, Prosper Unavailable Unavailable Harpreet, Prosper Unavailable Unavailable Harpreet, Prosper Unavailable Unavailable Harpreet, Prosper Unavailable Unavailable Harpreet, Prosper Unavailable Unavailable Harpreet, Prosper Unavailable Unavailable Harpreet, Prosper Unavailable Unavailable Harpreet, Prosper Unavailable Unavailable Harperet, Prosper Unavailable Unavailable Harpreet, Prosper Unavailable Unavailable [...] Unavailable WILTON, H ANUEL MD Unavailable Unavailable ED, TEST DEFAULT Unavailable Unavailable [...] Unavailable Steckel, M Joyce RPA-C Unavailable Unavailable [place], Kim Madsen MPH Unavailable Unavailable [place], Kim Madsen MPH Unavailable Unavailable Rossy, Kim Madsen MPH Unavailable Unavailable Rossy, Kim Madsen MPH Unavailable Unavailable [place], R Piyush MPH Unavailable Unavailable MUJO, TRISHA Unavailable Unavailable [...] Unavailable GENDELEAZAR, Nisha DRUMMOND MD Unavailable Unavailable GENANDREW, Nisha DRUMMOND MD Unavailable Unavailable GENDZILEON, Nisha DRUMMOND MD Unavailable Unavailable GENDZILEON, Nisha DRUMMOND MD Unavailable Unavailable GENDZILEON, Nisha DRUMMOND MD Unavailable Unavailable GENDZILEON, Nisha DRUMMOND MD Unavailable Unavailable GENDZILEON, Nisha DRUMMOND MD Unavailable Unavailable GENDZILEON, Nisha DRUMMOND MD Unavailable Unavailable GENDZIELENisha RENDON MD Unavailable Unavailable GENDZILEON, Nisha RDUMMOND MD Unavailable Unavailable GENDZILEON, Nisha DRUMMOND MD Unavailable Unavailable GENDZIELEJUSTICE, Nisha DRUMMOND MD Unavailable Unavailable GENDZILEON, Nisha DRUMMOND MD Unavailable Unavailable GENDZILEON, Nisha DRUMMOND MD Unavailable Unavailable GENDZILEON, Nisha DRUMMOND MD Unavailable Unavailable GENDZILEON, Nisha DRUMMOND MD Unavailable Unavailable GENDZILEON, Nisha DRUMMOND MD Unavailable Unavailable GENDZIELEJUSTICE, Nisha DRUMMOND MD Unavailable Unavailable GENDZILEON, Nisha [...] Unavailable GENDELEAZAR, Nisha DRUMMOND MD Unavailable Unavailable GENDNisha BUSH MD Unavailable Unavailable GENDZINisha QUINTERO MD Unavailable Unavailable GENDZINisha QUINTERO MD Unavailable Unavailable GENDZINisha QUINTERO MD Unavailable Unavailable GENDNisha BUSH MD Unavailable Unavailable GENDZINisha QUINTERO MD Unavailable Unavailable GENDZILEON, Nisha DRUMMOND MD Unavailable Unavailable GENDZINisha QUINTERO MD Unavailable Unavailable GENDZILEON, Nisha DRUMMOND MD Unavailable Unavailable GENDZINisha QUINTERO MD Unavailable Unavailable GENDZINisha QUINTERO MD Unavailable Unavailable GENDZINisha QUINTERO MD Unavailable Unavailable GENNisha MORALES MD Unavailable Unavailable GENDNisha BUSH MD Unavailable Unavailable GENNisha MORALES MD Unavailable [...] Unavailable Unavailable Everardo Cordon MD Unavailable Unavailable Neris M Lenka MD [...] Unavailable Simione-Albino, Allison PA Unavailable Unavailable Simione-Albino, Alilson PA Unavailable Unavailable Simione-Albino, Allison PA Unavailable [...] Unavailable Unavailable MAGDA BAKER MD Unavailable Unavailable Kim DELONG Unavailable Unavailable Everardo Cordon MD Unavailable Unavailable [...] Unavailable NerisEverardo azul MD Unavailable Unavailable NerisEverardo azul MD Unavailable Unavailable NerisEverardo azul MD Unavailable [...] Unavailable NerisEverardo mccall MD Unavailable Unavailable NerisEverardo mccall MD Unavailable [...] Unavailable Neris, Everardo Og MD Unavailable Unavailable MOUNCEY, K FARHANA Unavailable Unavailable Simione-Albino, Allison PA Unavailable [...] Unavailable WINSTON, Edgar DELACRUZ MD Unavailable Unavailable WINSOTN, Edgar DELACRUZ MD Unavailable Unavailable WINSTON, Edgar [...] is protected by Article 27-F of the [facility] Public Health law. If you continue you may have access to information: Regarding HIV / AIDS; Provided by facilities licensed or operated by the [facility] Office of Mental Health; or Provided by the [facility] Office for People With Developmental Disabilities. If such information is present, then the following [facility] mandated warning applies: This information has been [...] law may result in a fine or detention sentence or both. A general authorization for the release of medical or other information is NOT sufficient authorization for further disc losure. Allergies and Adverse Reactions Type Description Substance Reaction Status Data Source(s ) Propensity to adverse reactions PACLITAXEL PACLITAXEL Anaphylaxis [facility] Family History Family Member Name Family [...] Noris Bee MD 04/02/2021 12:00:00 A [facility] Outpatient Referrer: Prosper Mullins 03/18/2021 08:02:31 AM [facility] Outpatient Attender: Noris Bee MD [id number] 2020 12:00:00 AM EDT - 03/10/2021 12:37:28 PM [facility] Outpatient 03/03/2021 12:00:00 AM [facility] Outpatient 02/28/2021 02:36:03 PM EDT - 021 03:05:20 PM EDT [facility] ([facility]) Outpatient Attender: DEFAULT ED 02/24/2021 12:00:00 AM [facility] Outpatient Attender: Lenka Cordon MDReferrer: Lenka bruner MD 02/17/2021 12:00:00 AM EDT 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, unspecified site [facility] 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, unspecified site Outpatient Attender: DEFAULT ED 02/17/2021 12:00:00 AM [facility] Outpatient Attender: FARHANA VIERA [id number] 02/12/2021 11:29:16 A M [facility] Outpatient Attender: ZAHRAA DIASttender: DEFAULT ED 02/12/2021 12:00:00 AM EDT - 02/12/2021 01:04:13 PM [facility] Outpatient Attender: Piyush Paz MP HAttender: NIKUNJ SILVAAttender: PIYUSH PAZ 07-ONCCACTR 02/10/2021 12:00:00 AM EDT - 02/10/2021 02:12:53 PM [facility] Outpatient 02/10/2021 12:00:00 AM EDT - 021 01:58:30 PM [facility] Outpatient 02/10/2021 12:00:00 AM [facility] Outpatient 02/10/2021 12:00:00 AM [facility] Outpatient Attender: NIKUNJ Ken kary: Piyush Paz MPHAttender: PIYUSH PAZ [facility] Piyush Paz MPHAttender: PIYUSH GALLEGOS 02/10/2021 12:00:00 AM [facility] Outpatient Attender: NIKUNJ SILVA 02/10/2021 12:00:00 AM [facility] Outpatient Attender: Paulie Hebert/Gian/Steven/Cheryl 02/09/2021 01:00:00 PM EDT [facility] ([facility] Outpatient Attender: DEFAULT ED 02/03/2021 12:00:00 AM [facility] Outpatient Attender: Noris Bee MD [id number] 2020 12:00:00 AM EDT - 01/27/2021 03:33:51 PM EDT [facility] Outpatient Attender: DRAGAN EDAttender: PAULIE OVERTON 01/22/2021 12:00:00 AM EDT - 01/22/2021 11:51:[address] [facility] sp[facility] Outpatient Attender: Noris Bee MD [id number] 2020 12:00:00 AM EDT - 01/15/2021 10:38:30 AM EDT [facility] Outpatient Referrer: Prosper Mullins 01/13/2021 01:51:41 PM ED T [facility] Outpatient 01/13/2021 12:00:00 AM EDT Malignant neoplasm of right ovary [facility] Malignant neoplasm of right ovary Emergency Attender: PARISH MATTA MD [id number] 01/10 12:00:00 AM EDT - 01/10/2021 05:28:00 PM EDT Blood draw platete count off; cancer patient [facility] Blood draw platete count off; cancer pat ient Patient discharged. Outpatient Attender: Noris Bee MDAttender: JOVAN MURDOCK 01/08/2021 12:00:00 AM EDT - 01/08/2021 03:25:40 PM EDT Malignant neoplasm of right ovary [facility] Malignant neoplasm of right ovary Outpatient 01/01/2021 12:00:00 AM [facility] Outpatient Attender: Noris Bee MD [id number] 2020 12:00:00 AM EDT - 12/25/2020 03:47:35 PM T [facility] Outpatient Attender: SEBAS LEÓNAttender: SEBAS LEÓN NP 07Elisabeth-ONCCACTR 12/18/2020 12:00:00 AM EDT - 12/18/2020 12:16:43 PM [facility] Outpatient Attender: Noris Bee MD 12/16/2020 12:00:00 A M [facility] Attender: Jayme Winston 12/11/2020 08:21:08 PM EDT [...] AM EDT Malignant neoplasm of right ovary [facility] Malignant neoplasm of right ovary Outpatient Attender: Noris Bee MD 12/04/2020 12:00:00 A M [facility] Outpatient Attender: Noris Bee MD Elisabeth-ONCCACTR 2020 12:00:00 AM EDT - 11/25/2020 01:52:05 PM [facility] Outpatient Attender: Lenka Alford 01:15:00 PM EDT [facility] ([facility] ) Outpatient Attender: Noris Bee MD 11/13/2020 12:00:00 A M [facility] Outpatient Attender: Noris Bee MD 11/06/2020 12:00:00 A M [facility] Outpatient Attender: PROSPER DELONG [id number] 10/23/2020 12:00:00 AM [facility] Outpatient Referrer: PROVIDER SYSTEM IN 10/23/2020 1 2:00:00 AM EDT Malignant neoplasm of pelvis [facility] Malignant neoplasm of pelvis Outpatient Attender: Noris Bee MD 10/23/2020 12:00:00 A M [facility] Outpatient Attender: Noris Bee MD 10/16/2020 12:00:00 A M [facility] Outpatient Attender: SHY ORTIZ RN 021 12:00:00 AM EDT - 09/30/2020 11:48:11 AM ED[facility] 09/29/2020 12:00:00 AM [facility] Outpatient Attender: SEBAS MENDOSAKAAttender: Noris Bee MD 07A-ONCCACTR 09/25/2020 12:00:00 AM EDT - 09/28/2020 09:13:43 AM EDT Malignant neoplasm of [facility] Malignant neoplasm of pelvis Outpatient Attender: Noris Bee MD [id number] 2020 12:00:00 AM EDT - 09/04/2020 12:22:25 PM EDT Malignant neoplasm of [facility] Malignant neoplasm of pelvis Outpatient Attender: TRISHA BRUMFIELDAdmitter: TRISHA BRUMFIELD Referrer: Denver Olivarez DO 6CC-CCIR 08/27/2020 08:15:36 AM EDT - 08/27/2020 10:40:00 AM ED T Malignant neoplasm of [facility] Malignant neoplasm of pelvis Patient discharged. Outpatient Attender: Joyce ROBINS 07A-ONCCACTR 0 08/25/2020 12:00:00 AM EDT - 08/25/2020 11:07:07 AM EDT Malignant neoplasm of [facility] Malignant neoplasm of pelvis Outpatient Attender: PROSPER DELONG [id number] 08/24/2020 12:00:00 AM [facility] Outpatient Attender: Joyce MCALLISTERC 08/19/2020 12:00 :00 AM [facility] Outpatient 08/17/2020 12:00:00 AM [facility] Outpatient Attender: HARINDER HOOKS MDA dmitter: PRATEEK MCCRACKENReferrer: Joyce MCALLISTERC 08/14/2020 12:00:00 AM EDT - 08/14/2020 09:40:00 PM EDT Malignant neoplasm of [facility] Malignant neoplasm of pelvis Patient discharged. Outpatient Attender: JENNIFER Tam-ONCCACTR 08/13/2020 12:00 :00 AM EDT Malignant neoplasm of pelvis [facility] Malignant neoplasm of pelvis Outpatient Attender: Noris Bee MD [id number]-ONCCACTR 2020 12:00:00 AM EDT - 08/07/2020 10:50:25 AM EDT Malignant neoplasm of pelvis [facility] Malignant neoplasm of pelvis Outpatient Attender: Lenka Alford 11:00:00 AM EDT [facility] ([facility] ) Attender: JAYME WINSTON MDReferrer: HODA [...] [facility] Outpatient Attender: ANUEL NÚÑEZ MD [facility] 02:00:00 PM EDT [facility] ([facility] Outpatient Attender: ANUEL NÚÑEZ MDConsultant: ANUEL JONES MD 07/22/2020 08:20:00 AM EDT - 07/22/2020 09:20:[address] [facility] Patient discharged. Outpatient Referrer: Allison MOSER 07/15/2020 1 0:33:52 AM EST [facility] Outpatient Attender: ANUEL NÚÑEZ MD [facility] 02/2021 09:00:00 AM EST [facility] ([facility] Outpatient Attender: Allison MOSER MOCAM-MOCAM.E N 07/10/2020 12:00:00 AM EST - 07/10/2020 09:59:27 AM EST [facility] Attender: MAGDA BAKER MDReferrer: MAGDA MA MD 07/07/2020 12:00:00 AM EST - 07/08/2020 12:00:00 AM EST N39.0] [facility] N39.0] Outpatient Attender: ANUEL NÚÑEZ MDConsultant: ANUEL JONES MD 06/25/2020 02:11:00 PM EST - 06/25/2020 03:11:[address] [facility] Outpatient Attender: ANUEL NÚÑEZ MD [facility] 12:45:00 PM EST [facility] ([facility] Outpatient Attender: MAGDA BAKER MD [id number] 12:00:00 AM EST - 06/10/2020 02:45:06 [facility]: JAYEM WINSTON MDReferrer: Janelle Nieto MD 04/17/2020 08:20:12 [...] [facility] Outpatient Attender: ANUEL NÚÑEZ MD [facility] 03/2020 09:00:00 AM EST [facility] ([facility] Attender: JAYME WINSTON MDReferrer: Janelle Nieto [...] Prosper Mullins 01/22/2020 03:06:14 PM ED T [facility] Outpatient Attender: Prosper Mullins NICK 01/22/2020 01:02:24 PM EDT - 01/22/2020 02:58:24 PM EDT [facility] Immunizations Vaccine Date Status Description Data Source(s) This CVX code allows reporting of a vacc ination when formulation is unknown (for example, when recording a Influenza vaccination when noted on a vaccination card) 03/13/2021 08:32:00 AM EDT completed DILSHAD Omer ([facility]) COVID-19 VACCINE Moderna 03/06/2021 12:00:00 AM EDT completed [facility]IS Vaccine Series Complete: YESThis Data wa s Submitted to [facility] Via [employer]. pneumococcal polysaccharide PPV23 08/06/2020 12:17:00 PM EDT comple jc RIOS ([facility]) COVID-19 VACCINE Moderna 06/25/2020 12:00:00 AM EST completed [facility]IS Vaccine Series Complete: YESThis Data wa s Submitted to [facility] Via [employer]. COVID-19 VACCINE Moderna 05/28/2020 12:00:00 AM EST completed [facility] Vaccine Series Complete: NOThis Data was Submitted to [facility] Via [employer]. pneumococcal polysaccharide PPV23 03/18/2020 09:30:00 AM EST [...] ay 03/22/2021 12:00:00 AM EST ronak CHEEMA ([facility]) 10 gram/15 mL 03/10/2021 12:00:00 AM [...] On Mon01/10/21 at 1730, For 1 dose [facility] Medication administered onsite pegfilgrastim (NEULASTA ONPRO) for on-body injector kit 6 mg [id number] 12/25/2020 02:00:00 PM EDT 6 mg Subcutaneous completed S erous carcinoma of female pelvisCarcinoma of right ovary 6 mg, Subcutaneous, Onc e, On Mon12/25/20 at 1400, For 1 dose
Store in the refrigerator.
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
Hazardous drug. Follow precautions. Dispose of properly.
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
Do not filter.
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
Give 30 minutes prior to chemo.
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
Give prior to chemotherapy
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
Give prior to chemotherapy.
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
Give 30 minutes prior to chemotherapy.
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 Medication administered onsite Potassium Chloride 10 MEQ Extended Relea se Oral Capsule Potassium Chloride ER 10 MEQ Oral Capsule Extended Release (MICRO-K) Potassium Chloride ER 10 MEQ Oral Capsule Extended Release (MICRO-K) 12/18/2020 12:00:00 AM EDT 20 meq Oral active Take 2 capsules by mouth Two Matti es Daily [facility] Potassium Chloride 10 MEQ Extended Release Oral Capsule POTA SSIUM CHLORIDE 12/18/2020 12:00:00 AM EDT capsule, extended release 60 TAKE TWO CAPSULES BY MOUTH TWICE A DAY TAKE TWO CAPSULES BY MOUTH TWICE A DAY SOLD: 01/16/2021 [facility] [facility] Potassium Chloride 10 MEQ Extended Release Oral [...] hours as needed for Nausea or Vomiting 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
Store in the refrigerator.
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
Hazardous drug. Follow precautions. Dispose of properly.
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
Do not filter.
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
Give prior to chemotherapy.
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
Give prior to chemotherapy
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
Give 30 minutes prior to chemotherapy.
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
Give 30 minutes prior to chemo.
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 Carcinoma [...] BY MOUTH TWICE A DAY SOLD: 11/25/2020 [facility] Potassium Chloride 10 MEQ Extended Relea se Oral Capsule Potassium Chloride ER 10 MEQ Oral Capsule Extended Release (MICRO-K) Potassium Chloride ER 10 MEQ Oral Capsule Extended Release (MICRO-K) 11/25/2020 12:00:00 AM EDT 20 meq Oral aborted Take 2 capsules by mouth Two Matti es Daily [facility] Potassium Chloride Landy ER 10 MEQ Oral Tablet Extended Release (K-DUR) 10957-944-09 11/25/2020 12:00:00 AM EDT 10 meq Oral abort ed Take 1 tablet by mouth Two Times Daily [facility] Cephalexin 500 MG Oral Capsule CEPHALEXIN 11/12/2020 [...] mLs by mouth arden ly as needed [facility] 10 gram/15 mL 10/20/2020 12:00:00 AM EDT [...] to herpetic lesions 3-5 ti mes daily [facility] 24 HR mirabegron 50 MG Extended Release Oral Tablet Mirabegron ER 50 MG Oral Tablet Extended Release 24 Hour Mirabegron ER 50 MG Oral Tablet Extended Release 24 Hour 09/14/2020 12:00:00 AM EDT 50 mg Oral active Take 1 tablet by mouth daily DAW0 [facility] CARBOplatin (PARAPLATIN) 750 mg in sodium chloride 0.9 % lencho mo infusion 09/04/2020 11:15:00 AM EDT 750 mg Intravenous c ompleted 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
Hazardous drug. Follow precautions. Dispose of properly.
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
Store in the refrigerator.
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
Once, On Mon09/04/20 at 1015, For 1 dose
Do not filter.
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
Give 30 minutes prior to chemo.
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
Give 30 minutes prior to chemotherapy.
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
Give prior to chemotherapy.
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
Give prior to chemotherapy
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 Medication administered onsite Lidocaine 25 MG/ML / Prilocaine 25 MG/ML Topical Cream Lidocaine-Prilocaine 2.5- 2.5 % External Cream (EMLA) Lidocaine-Prilocaine 2.5-2.5 % External Cream (EMLA) 09/04/2020 12:00:00 AM EDT active Apply to port site as instructed [facility] 2.5-2.5 % 09/04/2020 12:00:00 AM EDT cream 30 APPLY TO PORT SITE DIRECTED APPLY TO PORT SITE DIRECTED SOLD: 09/09/2020 [facility] valacyclovir 500 MG Oral Tablet valACYclovir HCl 500 M G Oral Tablet (Valtrex) valACYclovir HCl 500 MG Oral Tablet (Valtrex) 09/04/2020 12:00:00 AM EDT 500 mg Oral active Take 1 tablet by mouth d [facility] Polysaccharide iron complex 150 MG Oral Capsule Polysaccharide Iron Complex 150 MG Oral Capsule (Ferrex 150) Polysaccharide Iron Complex 150 MG Oral Capsule (Ferrex 150) 09/04/2020 12:00:00 AM EDT 150 mg Oral compl eted Take 1 capsule by mouth daily [facility] Lactulose 667 MG/ML Oral Solution Lactul ose 10 GM/15ML Oral Solution (CHRONULAC) Lactulose 10 GM/15ML Oral Solution (CHRONULAC) 09/04/2020 12:00: 00 AM EDT 10 g Oral active Take 15 mL s by mouth Three times daily as needed for up to 10 days [facility] 10 gram/15 mL 09/04/2020 12:00:00 AM EDT [...] [facility] sodium bicarbonate 4.2 % injection 1370-6107-23 08/27/2020 09:26:55 A M EDT completed Code/Trauma continuo us Med, Starting on Eliane 08/27/20 at 0926 [facility] Medication administered onsite Epinephrine 0.01 MG/ML / Lidocaine Elkins chloride 10 MG/ML Injectable Solution lidocaine-EPINEPHrine 1 %-1:025529 injection lidocaine-EPINEPHrine 1 %-1:565885 injection 08/27/2020 09:24:25 AM EDT complete d Code/Trauma Medication, Starting on Eliane 08/27/20 at 0924 [facility] Medication administered onsite 2 ML Midazolam 1 MG/ML Injection midazolam (PF) (VERSE D) injection midazolam (PF) (VERSED) injection 08/27/2020 09:06:02 AM EDT completed Code/Trauma Medication, Starting on Eliane 08/27/20 at 0906 [facility] Medication administered onsite fentaNYL (SUBLIMAZE) (PF) injection [id number] 08/27/2020 09:05:11 AM EDT completed Code/Trauma Medicati on, Starting on Eliane 08/27/20 at 0905 [facility] Medication administered onsite sodium chloride (preservative free) [...] For 1 occurrence
Pre-op [Order 4 End] [facility] Medication administered onsite Clindamycin 12 MG/ML Injectable Solution clindamycin ( CLEOCIN) IVPB 600 mg clindamycin (CLEOCIN) IVPB 600 mg 08/27/2020 07:15:00 AM EDT 600 mg Intravenous completed 600 mg, Intra venous, at 100 mL/hr, Once, On Eliane 08/27/20 at 0715, For 1 dose, Pre-op
Discouraged Uses: Cellulitis
[facility] Medication administered onsite sodium chloride 0.9 % bag 3-20 mL 7375-8187-64 08/27/2020 07:07:56 AM EDT mL Intravenous active 3-20 mL, Intr avenous, at 1-999 mL/hr, PRN, For Medication Administration and Line Clearance, Starting on Eliane 08/27/20 at 0707, For 30 days, Pre-op
Flush line with sufficient amount of fluid needed based on crm manager recommendation for specific line size. Rate should be run at the same rate as medication in the line being flushed.
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 Take 1 tablet by mouth every 6 (six) hours as needed (Nausea, Vomiting) 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 Ondansetron 8 MG Oral Tablet Ondansetron HCl 8 MG Oral Tablet (ZOFRAN) Ondansetron HCl 8 MG Oral Tablet (ZOFRAN) 08/14/2020 12:00:00 AM EDT 8 mg Oral aborted 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 Take 1 tablet by mouth every 8 (eight) hours as needed for Nausea or Vomiting 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 10 mg [...] 08/06/2020 12:00:00 AM EDT ORAL active [facility] ([facility]) atorvastatin 40 MG Oral Tablet Atorvastatin Calcium 08/06/2020 1 2:00:00 AM EDT ORAL active [facility] ( [facility]) Escitalopram 20 MG Oral Tablet [Lexapro] Lexapro 08/06/2020 12:00: 00 AM EDT ORAL active [facility] ([facility]) Probiotic Probiotic 08/06/2020 12:00:00 AM EDT ORAL act ania [facility] ([facility]) valacyclovir 1000 MG Oral Tablet [Valtrex] Valtrex 08/06/2020 12:00:00 AM EDT ORAL active [facility] ([facility]) 10 gram/15 mL 07/10/2020 12:00:00 AM [...] by mouth 3 (three) times a day [facility] Sulfamethoxazole 800 MG / Trimethoprim 1 60 MG Oral Tablet sulfamethoxazole- trimethoprim (BACTRIM DS,SEPTRA DS) 800-160 MG per tablet sulfamethoxazole- trimethoprim (BACTRIM DS,SEPTRA DS) 800-160 MG per tablet 07/08/2020 12:00:00 AM EST active TAKE 1 TABLET BY MOUTH TWO TIMES DAILY FOR 5 DAYS [facility] Docusate Sodium 100 MG Oral Capsule [Colace] Colace 12:00:00 AM EST ORAL completed [facility] ([facility] Omeprazole 40 MG Delayed Release Oral Capsule Omeprazole 06/25/2020 12:00:00 AM EST ORAL active [facility] ([facility] Omeprazole 40 MG Delayed Release Oral Ca psule omeprazole (PRILOSEC) 40 MG capsule omeprazole (PRILOSEC) 40 MG capsule 06/25/2020 12:00:00 AM EST 1 {capsule} Oral active Take 1 capsule by mout h daily [facility] Covid-19 vaccine, Unspecified 06/11/2020 12:00:00 AM EST completed [facility] ([facility]) Medication administered onsite solifenacin succinate 5 MG Oral Tablet solifenacin (VE SICARE) 5 MG tablet solifenacin (VESICARE) 5 MG tablet 06/10/2020 12:00:00 AM EST 5 mg Oral active Take 5 mg by mouth [facility] solifenacin succinate 5 MG Oral Tablet S olifenacin Succinate 5 MG Oral Tablet (VESICARE) Solifenacin Succinate 5 MG Oral Tablet (VESICARE) 07/2020 12:00:00 AM EST 5 mg Oral aborted Take 1 tablet b y mouth daily [facility] Covid-19 vaccine, Unspecified 05/14/2020 12:00:00 AM EST completed [facility] ([facility]) Medication administered onsite valacyclovir 1000 MG Oral Tablet valACYclovir (VALTREX ) 1000 MG tablet valACYclovir (VALTREX) 1000 MG tablet 04/03/2020 12:00:00 AM EST 2 {tbl} Oral active Take 2 tablets by mouth 2 (two) times a day as needed [facility] CPAP 01/26/2020 12:00:00 AM EDT active [facility] ([facility] ) Omeprazole 20 MG Delayed Release Oral Ca psule omeprazole (PRILOSEC) 20 MG capsule omeprazole (PRILOSEC) 20 MG capsule 20 mg Oral aborted Take 20 mg by mouth daily [facility] valacyclovir 500 MG Oral Tablet valACYclovir (VALTREX) 500 MG tablet valACYclovir (VALTREX) 500 MG tablet 500 mg Oral a borted Take 500 mg by mouth as needed [facility] Levothyroxine Sodium 0.075 MG Oral Table t levothyroxine (SYNTHROID, LEVOTHROID) 75 MCG tablet levothyroxine (SYNTHROID, LEVOTHROID) 75 MCG tablet 75 ug Oral aborted Take 75 mcg by mouth daily [facility] Goodwell-3 Fatty Acids (FISH OIL) 1200 MG CAPS 19199-84217 2400 mg Oral aborted Take 2,400 mg by mouth daily. [facility] Psyllium (METAMUCIL FIBER SINGLES PO) Oral aborted Take by mouth [facility] Insurance Providers Payer name Policy type / Coverage type Policy ID Covered green party ID Covered green party's relationship to rendon Policy Rendon Plan Information POMCO [id number] [facility] [id number] [facility] [id number] [facility] POS [id number] [place] [id number] 0 [id number] [address] [address] LUL A UNAVAILABLE [id number] UNAVA ILABLE [address] JULIO C UNAVAILABLE [id number] UNAV AILABLE BLUE CARD C [id number] Spouse [id number] POMCO [id number] SP [id number] [facility] 200/700 [id number] HU2 [id number] UMR [id number] xxxxxxxxx [id number] UMR [id number] Marissa [id number] UMR U [id number] Self [id number] UMR [id number] Marissa [id number] [employer] BC//BS Medigap Part B [id number] Family Dependent [id number] POMCO [id number] Marissa [id number] [employer] [id number] BLUE CARD C [id number] Self [id number] UMR [facility] [id number] SP [id number] Umr Care Management [id number] 0 [id number] Umr Care Management [id number] 0 [id number] EXCELLUS BCBS [id number] Spo NGN [id number] EXCELLUS BCBS [id number] Spo NGN [id number] UMR [facility] [id number] SP [id number] [place] 200/700 [id number] SP [id number] [place] [place] 200/700 [id number] SP [id number] MEDICARE [id number] SP [id number] UMR [facility] [id number] SP [id number] Umr Commercial [id number] Self [id number] UMR U [id number] Self [id number] Umr Commercial [id number] Self [id number] Umr Commercial [id number] Self [id number] MEDICARE [id number] xxxxxxxxxxx [id number] Umr Care Management [id number] MEDICARE [id number] Marissa [id number] MEDICARE A [id number] Self [id number] [id number] Medicare Part B [facility] [id number] MEDICARE [id number] Marissa [id number] BLUE CARD C [id number] Self [id number] [employer] Blue Cross and Blue Shield [place] Blue Cross/B lue Shield [id number] Self [id number] [place] Medicare Part B [id number] [id number] [facility] [employer] [id number] Self [id number] [employer]UE CROSS BLUE SHIELD -O/P [id number] UMR -O/P [id number] 18 [id number] MEDICARE PART A -O/P [id number] 18 [id number] BCBS [place] PPO 302/307 [id number] SP [id number] BCBS [place] PPO 302/307 [id number] SP [id number] [employer]BS [place] Medigap Part B [id number] Family Dependent [id number] [facility] [id number] Self [id number] [employer] [place] Medigap Part B [id number] Family Dependent N [id number] ANSI-Commercial [id number] ANSI-Commercial [id number] ANSI-Commercial [id number] ANSI-Commercial [id number] ANSI-Commercial [id number] ANSI-Commercial [id number] [place] 200/700 [id number] SP [id number] POMCO [id number] SP [id number] [employer] Commercial [id number] Self [id number] EXCELLUS BCBS B [id number] S [id number] [id number] POMCO PPO O [id number] S [id number] [employer] BC//BS Medigap Part B [id number] Family Dependent [id number] [employer] BC//BS Medigap Part B [id number] Family Dependent [id number] [employer] Commercial [id number] Self [id number] [employer] BC//BS Medigap Part B [id number] Family Dependent [id number] [employer] BC//BS Medigap Part B [id number] Family Dependent [id number] [employer] Commercial [id number] Self [id number] [employer] BC//BS Medigap Part B BC/BS [place] [id number] Family Dependent BC/BS [place] Excell[employer] BC//BS Medigap Part B [id number] Family Dependent [employer] Commercial [id number] Self BLUE CROSS O [id number] SP [id number] POMCO O [id number] S [id number] BCBS [facility] 200/700 [id number] [facility] [id number] BCBS [place] PPO 302/307 [id number] SP [id number] Problems, Conditions, and Diagnoses Code Display Name Description Problem Type Effective Dates Data Source(s) M85.80 Other specified disorders of bone density and structure, unspecified site Other specified disorders of bone density and structur e, unspecified site Diagnosis 02/17/2021 10:24:00 AM [facility] Blood draw platete count off; cancer pat ient Blood draw platete count off; cancer patient Diagnosis 01/10/2021 08:16:00 AM [facility] C56.1 Malignant neoplasm of right ovary Malignant neop lasm of right ovary Diagnosis 10/12/2020 08:35:59 PM [facility] C76.3 Malignant neoplasm of pelvis Malignant neoplasm of pel vis Diagnosis 08/27/2020 07:08:03 AM [facility] T80.90XA Unspecified complication fol lowing infusion and therapeutic injection, initial encounter Unspecified complication following infus ion and therapeutic injection, initial encounter Diagnosis 08/13/2020 08:05:42 AM EDT [facility] J9811 Atelectasis Atelectasis Diagnosis [facility] Pleural effusion, not elsewhere classifi ed Pleural effusion, not elsewhere classified Diagnosis 07/22/2020 08:20:00 AM [facility] R188 Other ascites Other ascites Diagnosis 07/22/2020 08:20:00 AM [facility] R1901 Right upper quadrant abdominal swelling, mass and lump Right upper quadrant abdominal swelling, mass and lump Diagnosis 07/22/2020 08:20: 00 AM [facility] K7689 Other specified diseases of liver Other specifie d diseases of liver Diagnosis 07/22/2020 08:20:00 AM [facility] R109 Unspecified abdominal pain Unspecified abdominal pain Diagnosis 07/22/2020 08:20:00 AM [facility] E89.0 Postprocedural hypothyroidism Postprocedural hypothyro idism Diagnosis 07/10/2020 08:46:18 AM EST [facility] K59.09 Other constipation Other constipation Diagnosis 09/2020 08:46:18 AM EST [facility] K21.9 Gastro-esophageal reflux disease without esophagitis Gastro-esophageal reflux disease without Diagnosis 07/10/2020 08:46:18 AM [facility] M85.852 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, left thigh Other specified disorders of bone densit Diagnosis 07/10/2020 08:46:18 AM [facility] M85.851 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, right thigh Other specified disorders of bone densit Diagnosis 07/10/2020 08:46:18 AM EST [place] [facility] E21.0 Primary hyperparathyroidism Primary hyperparathyroidis m Diagnosis 07/10/2020 08:46:18 AM EST [facility] N39.0] N39.0] Diagnosis 07/07/2020 10:50:00 AM [facility] [id number] Carcinoma of ovary, stage 4 Carcinoma of ovary, stage 4 Problem 08/06/2020 12:00:00 AM EDT [facility] ([facility]) [id number] Urge incontinence of urine Urge incontinence of urine Problem 08/06/2020 12:00:00 AM EDT [facility] ([facility]) [id number] Salcido's esophagus Salcido's esophagus Problem 0 08/06/2020 12:00:00 AM EDT [facility] ([facility]) [id number] Hypothyroidism Hypothyroidism Problem 08/06/2020 12:00: 00 AM EDT [facility] ([facility]) [id number] Hypercalcemia Hypercalcemia Problem 08/06/2020 12:00:00 AM EDT [facility] ([facility]) [id number] Environmental allergy Environmental allergy Problem 08/06/2020 12:00:00 AM EDT [facility] ([facility]) [id number] Pure hypercholesterolemia Pure hypercholesterolemia Pr oblem 08/06/2020 12:00:00 AM EDT [facility] ([facility]) E21.0 Primary hyperparathyroidism Primary hyperparathyroidis m [id number] 07/10/2020 12:00:00 AM [facility] K59.09 Other constipation Other constipation [id number] 09/2020 12:00:00 AM [facility] G47.33 Obstructive sleep apnea syndrome Obstructive sle ep apnea syndrome Problem 02/05/2020 12:00:00 AM EDT [facility], ) Surgeries/Procedures Procedure Description Date Indications Data Source(s) Bone Mineral Density Test 02/09/2021 12:00:00 AM EDT [facility] ([facility]) OFFICE OUTPATIENT VISIT 15 MINUTES 02/09/2021 12:00:00 AM EDT [facility] ([facility], ) PREPARE PLATELET PHERESIS <td>PREPARE PLATELET PHERESIS</td><td>Routine</td><td>01/10/2021 2:37 PM EDT</td><td></td><td></td> 01/10/2021 02:37:00 PM [facility] BLOOD COUNT COMPLETE AUTO&AUTO DIFRNTL WBC COUNT <td>C BC AND DIFFERENTIAL</td><td>Routine</td><td>01/10/2021 10:59 AM EDT</td><td></td><td> </td> 01/10/2021 10:59:00 AM T [facility] BASIC METABOLIC PANEL CALCIUM TOTAL <td>BASIC METABOLI C PANEL</td><td>STAT</td><td>01/10/2021 10:59 AM EDT</td><td></td><td> </td> 01/10/2021 10:59:00 AM [facility] BLOOD COUNT COMPLETE AUTO&AUTO DIFRNTL WBC COUNT <td>C BC AND DIFFERENTIAL</td><td>STAT</td><td>12/25/2020 11:01 AM EDT</td><td> 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</td><td> </td> 12/25/2020 11:01:00 AM EDT 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 [facility] 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 IMMUNOASSAY TUMOR ANTIGEN QUANTITATIVE CA 125 <td>CA 125</td><td>Routine</td><td>12/25/2020 11:01 AM EDT</td><td> Carcinoma of right ovary</td><td> </td> 12/25/2020 11:01:00 AM EDT Carcinoma of right ovary [facility] Carcinoma of right ovary COMPREHENSIVE METABOLIC PANEL <td>COMPREHENSIVE METABO LIC PANEL</td><td>Routine</td><td>12/25/2020 11:01 AM EDT</td><td> Carcinoma of right ovary</td><td> </td> 12/25/2020 11:01:00 AM EDT Carcinoma of right ovary [facility] Carcinoma of right ovary BLOOD COUNT COMPLETE AUTO&AUTO DIFRNTL WBC COUNT <td>C BC AND DIFFERENTIAL</td><td>Routine</td><td>12/18/2020 10:30 AM EDT</td><td> Carcinoma of right ovary 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</td><td> </td> 12/18/2020 10:30:00 AM EDT 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Carcinoma of right ov [facility] 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 Carcinoma of right ovary IMMUNOASSAY TUMOR ANTIGEN QUANTITATIVE CA 125 <td>CA 125</td><td>Routine</td><td>12/18/2020 10:30 AM EDT</td><td> Carcinoma of right ovary 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</td><td> </td> 12/18/2020 10:30:00 AM EDT 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Carcinoma of right ov [facility] 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 Carcinoma of right ovary COMPREHENSIVE METABOLIC PANEL <td>COMPREHENSIVE METABO LIC PANEL</td><td>STAT</td><td>12/18/2020 10:30 AM EDT</td><td> Carcinoma of right ovary 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</td><td> </td> 12/18/2020 10:30:00 AM EDT 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Carcinoma of right ov [facility] 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 Carcinoma of right ovary BLOOD COUNT COMPLETE AUTO&AUTO DIFRNTL WBC COUNT <td>C BC AND DIFFERENTIAL</td><td>Routine</td><td>11/25/2020 8:12 AM EDT</td><td> Carcinoma of right ovary 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</td><td> </td> 11/25/2020 08:12:00 AM EDT 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Carcinoma of right ov [facility] 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 Carcinoma of right ovary IMMUNOASSAY TUMOR ANTIGEN QUANTITATIVE CA 125 <td>CA 125</td><td>Routine</td><td>11/25/2020 8:12 AM EDT</td><td> Carcinoma of right ovary 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</td><td> </td> 11/25/2020 08:12:00 AM EDT 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Carcinoma of right ov [facility] 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 Carcinoma of right ovary COMPREHENSIVE METABOLIC PANEL <td>COMPREHENSIVE METABO LIC PANEL</td><td>STAT</td><td>11/25/2020 8:12 AM EDT</td><td> Carcinoma of right ovary 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</td><td> </td> 11/25/2020 08:12:00 AM EDT 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Carcinoma of right ov [facility] 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 Carcinoma of right ovary OFFICE OUTPATIENT VISIT 25 MINUTES 11/19/2020 12:00:00 AM EDT [facility] ([facility]) OFFICE OUTPATIENT VISIT 25 MINUTES 11/17/2020 12:00:00 AM EDT [facility] ([facility]) IRON <td>TOTAL FE BINDING CAPACIT Y</td><td>Routine</td><td>10/23/2020 8:50 AM EDT</td><td></td><td> </td> 10/23/2020 08:50:00 AM [facility] BLOOD COUNT COMPLETE AUTOMATED <td>CBC AND DIFFERENTIAL</td><td>Routine</td><td>10/23/2020 8:50 AM EDT</td><td></td><td> </td> 10/23/2020 08:50:00 AM [facility] FERRITIN <td>FERRITIN LEVEL</td><td>R outine</td><td>10/23/2020 8:50 AM EDT</td><td></td><td> </td> 10/23/2020 08:50:00 AM [facility] BASIC METABOLIC PANEL CALCIUM TOTAL <td>BASIC METABOLI C PANEL</td><td>Routine</td><td>10/23/2020 8:50 AM EDT</td><td></td><td> </td> 10/23/2020 08:50:00 AM [facility] IRON <td>TOTAL FE BINDING CAPACIT Y</td><td>Routine</td><td>09/25/2020 8:15 AM EDT</td><td></td><td> </td> 09/25/2020 08:15:00 AM [facility] BLOOD COUNT COMPLETE AUTO&AUTO DIFRNTL WBC COUNT <td>C BC AND DIFFERENTIAL</td><td>Routine</td><td>09/25/2020 8:15 AM EDT</td><td> 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</td><td> </td> 09/25/2020 08:15:00 AM EDT 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 [facility] 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 IMMUNOASSAY TUMOR ANTIGEN QUANTITATIVE CA 125 <td>CA 125</td><td>Routine</td><td>09/25/2020 8:15 AM EDT</td><td> 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</td><td> </td> 09/25/2020 08:15:00 AM EDT 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 [facility] 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 FERRITIN <td>FERRITIN LEVEL</td><td>R outine</td><td>09/25/2020 8:15 AM EDT</td><td></td><td> </td> 09/25/2020 08:15:00 AM [facility] COMPREHENSIVE METABOLIC PANEL <td>COMPREHENSIVE METABO LIC PANEL</td><td>STAT</td><td>09/25/2020 8:15 AM EDT</td><td> 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</td><td> </td> 09/25/2020 08:15:00 AM EDT 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 [facility] 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 BLOOD COUNT COMPLETE AUTO&AUTO DIFRNTL WBC COUNT <td>C BC AND DIFFERENTIAL</td><td>Routine</td><td>09/04/2020 8:30 AM EDT</td><td> 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</td><td> </td> 09/04/2020 08:30:00 AM EDT 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 [facility] 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 COMPREHENSIVE METABOLIC PANEL <td>COMPREHENSIVE METABO LIC PANEL</td><td>STAT</td><td>09/04/2020 8:30 AM EDT</td><td> 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</td><td> </td> 09/04/2020 08:30:00 AM EDT 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 [facility] 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 INSJ TUNNELED CTR VAD W/SUBQ PORT AGE 5 YR/> <td>IR VA SCULAR ACCESS INSERT OR REMOVAL</td><td>Routine</td><td>08/27/2020 9:25 AM EDT</td><td> 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</td><td></td> 08/27/2020 09:25:37 AM EDT 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 BLOOD COUNT COMPLETE AUTO&AUTO DIFRNTL WBC COUNT <td>C BC AND DIFFERENTIAL</td><td>Routine</td><td>08/27/2020 7:30 AM EDT</td><td></td><td> </td> 08/27/2020 07:30:00 AM EDT [facility] BLOOD COUNT COMPLETE AUTO&AUTO DIFRNTL WBC [...] AM EDT 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 [facility] 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 ABDOM PARACENTESIS DX/THER W IMAGING GUIDANCE <td>IR I MAGE GUIDED NEEDLE DRAIN PROCEDURE</td><td>STAT</td><td>08/14/2020 1:11 PM EDT</td><td> 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</td><td> </td> 08/14/2020 01:11:22 PM EDT 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 [facility] 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 POCT ID NOW COVID-19 <td>POCT ID NOW COVID-19</td ><td>Routine</td><td>08/14/2020 11:52 AM EDT</td><td></td><td> </td> 08/14/2020 11:52:00 AM T [facility] PARTIAL THROMBOPLASTIN TIME (PTT) <td>PARTIAL THROMBOP LASTIN TIME (PTT)</td><td>STAT</td><td>08/07/2020 10:54 AM EDT</td><td> 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</td><td> </td> 08/07/2020 10:54:00 AM EDT 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 [facility] Serous carcinoma of female pelvis PROTHROMBIN TIME <td>PROTIME INR</td><td>Rout ine</td><td>08/07/2020 10:54 AM EDT</td><td> 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</td><td> </td> 08/07/2020 10:54:00 AM EDT 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 [facility] 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 BLOOD COUNT COMPLETE AUTO&AUTO DIFRNTL WBC COUNT <td>C BC AND DIFFERENTIAL</td><td>Routine</td><td>08/07/2020 10:54 AM EDT</td><td> 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</td><td> </td> 08/07/2020 10:54:00 AM EDT 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 [facility] 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 COMPREHENSIVE METABOLIC PANEL <td>COMPREHENSIVE METABO LIC PANEL</td><td>STAT</td><td>08/07/2020 10:54 AM EDT</td><td> 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</td><td> </td> 08/07/2020 10:54:00 AM EDT 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 [facility] 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 ECG ROUTINE ECG W/LEAST 12 LDS W/I&R 08/06/2020 12:00: 00 AM EDT [facility] ([facility]) OFFICE OUTPATIENT NEW 45 MINUTES 08/06/2020 12:00:00 A M EDT [facility] ([facility]) URNLS DIP STICK/TABLET REAGENT AUTO MICROSCOPY <td>URI NALYSIS WITH MICROSCOPIC</td><td>Routine</td><td>07/07/2020 10:50 AM EST</td><td> Recurrent UTI</td><td> </td> 07/07/2020 10:50:00 AM EST Recurrent UTI [facility] Recurrent UTI Results ID Date Data Source [id number] 03/16/2021 09:29:04 PM EST [facility] Name Value Range Interpretation Code Description Data Deepa rce(s) Supporting Document(s) Progress Note [facility] IMTVPl3rUtDMJlCj81/EEXmnFPWtm0EqULugVDi5PSvyNZZfJ8EhJUS0aG9yCNV7AZeCIzJoCbKoYYS2 lbm [file] E+DQogICAgICAgICAgICAgICAgICAgICAgICAgICAgICAgICAgICAgICAgICAgICAgICAgICAgICAgIC AgICAgICAgICAgICAgICAgICAgICAgICAgICAgICAgICAgICAgICAgICAgDQogICAgICAgICAgICAgIC AgICAgICAgICAgICAgICAgICAgICAgICAgICAgICAg ICAgICAgICAgICAgICAgICAgICAgICAgICAgICAgICAgICAgICAgICAgICAgICAgICAgICAgDQogICAg ICAgICAgICAgICAgICAgICAgICAgICAgICAgICAgICAgICAgICAgICAgICAgICAgICAgICAgICAgICAg ICAgICAgICAgICAgICAgICAgICAgICAgICAgICAgIC AgICAgDQogICAgICAgICAgICAgICAgICAgICAgICAgICAgICAgICAgICAgICAgICAgICAgICAgICAgIC AgICAgICAgICAgICAgICAgICAgICAgICAgICAgICAgICAgICAgICAgICAgICAgDQogICAgICAgICAgIC AgICAgICAgICAgICAgICAgICAgICAgICAgICAgICAg ICAgICAgICAgICAgICAgICAgICAgICAgICAgICAgICAgICAgICAgICAgICAgICAgICAgICAgICAgDQog ICAgICAgICAgICAgICAgICAgICAgICAgICAgICAgICAgICAgICAgICAgICAgICAgICAgICAgICAgICAg ICAgICAgICAgICAgICAgICAgICAgICAgICAgICAgIC AgICAgICAgDQogICAgICAgICAgICAgICAgICAgICAgICAgICAgICAgICAgICAgICAgICAgICAgICAgIC AgICAgICAgICAgICAgICAgICAgICAgICAgICAgICAgICAgICAgICAgICAgICAgICAgDQogICAgICAgIC AgICAgICAgICAgICAgICAgICAgICAgICAgICAgICAg ICAgICAgICAgICAgICAgICAgICAgICAgICAgICAgICAgICAgICAgICAgICAgICAgICAgICAgICAgICAg DQogICAgICAgICAgICAgICAgICAgICAgICAgICAgICAgICAgICAgICAgICAgICAgICAgICAgICAgICAg ICAgICAgICAgICAgICAgICAgICAgICAgICAgICAgIC AgICAgICAgICAgDQogICAgICAgICAgICAgICAgICAgICAgICAgICAgICAgICAgICAgICAgICAgICAgIC YcIHGfVSQaRINtWXCtEATpGTQjISKsRMMdIJJlXVNqGTItXNAwCZNuIFDpLXXyCPYkFQQiETv7R0chBA RuEKUmDD1dDAq6Nx2+MUgUBwSzYQI1vrLsyB0GSB1k f7FrRSqwDJXux6UbOUw5FH8IJHVjDXwyQX8SRUjgqw5MJQSgGESxiBVXb7baZxYrLVZ5QJXzHoanON9N AIOyX6cduqBuGGBhDXFRLFkcSOKVLHHrMDLrTkYrWaAwKGJaCZOuRLWIBEC2PWCiTeZvHFSyMGEbRbIe OTBCJV8TDrHuE1KqxK19TEdMXc4+DQplbmRvYmoNCj M2ZLCgb0BvTIz5JS4BXNGrHagpg3ZrRssfAMDHARjyOC5HCYV3GOR9UFGtWo2QAYBeI986unNrWM0EMk 4CDmMoNV0blq3JPzhyUSPrCsmQGoq0BIkqEU7HvZArJQoFgy6xcmVqplKIm2MrikWheZMYwApcQ7A8bY IqUC1QXiIaMGQsDZPrRk8wJLLzGGBfKoR7SPEFTM3L VKPeZPTwmSJwRXVuUHQCPN4VZAfuZDF9QSDmngSpgSYgXYycKK7WVSSynnEnYkxnLPGYBZl+Np2AAE5a p1QmMZk6CHXoc7XbRFz4BU9HEICxOBdmIKXnQI0xg3NgX8F2VnM5qJFnA7vqprqgP7FnzoJbndRlONNn AKNpLT9GGC8GDM6BVQQiZIbsJQ5TBIX9BJr7EwW2Ga aiUEMbLJO7F49mWYscKU8DVVe3Y2AuX5MOVBYoELVHCLZomHN1GAMLVg4DI0SGZrbXDKYIZw0GMmLrY7 AKK9sPS78EYU6VLJT+PiANCj4+NQkbibHnAcmTRpE8UDOmb9UsTJg3QB6AWSNiRHtzNV6OXUCgnX0sZK dfKQ7CMfVoDJSmFYNHBrTbK51zoMWvDPe6Q4OiMqTe ZGVkRmlsZXMgPDwvTmFtZXMgWyBdDQogID4+ID4+NMzbYE5SKNxtjwJgBMBwIf3MEDHoAKApRK0eZRPm TWDyX2M7pJhoTWJSKaQjE6dcwrpiND1jUDZdS501bNckylLgKKJ3TCRvSo0ORACuWYT7VXStkQMiRmRa NLBSEVvcGE7QtBHrVJG5dV0wNSxcTJFoBEVcQ5xULi KufKeuOS80pQczsyOqePAzFKw+Bu9RYB1dv4NkUXc4jpLwJCmcFLJkGTzxTGDeUXCgYESuHRA3FXK4AL FHPoGmSABnYJTbONcfPDGcJFHeeo2GKSMzKJG6TuPwBXBxZHFfGDArFXfyUIRzPHZgFUBvCPOxJTDxVL 0LXuRoTHOsGYLzOHjsXJZqGTQdke2WKMYyBQBoVjU2 JkNnYDMyDNBkWPdwMRJtHYW0RjNwXHXfKVBqBY8QMoHqONTnSYK4VHeyZQFkPNYnmf6ELWIoLPAeLoi4 ZsNuHPDlKGDgMZocJSVaGHM3SSjjSHZbKRVyBP3IEsMjVTOiBBA1SANuHSGjQIRvbf0EUAEpNBQrWTA6 DWOoHVRbGSIbUVhtTZRiDKQ0KbObZNThNVZhYH4OPh KeOJZyKWU3LTmoCEAyBDVsnp3KONSaZUXsWVOwOOVtRSLsLSOlYCubCPHlWRS6QHV9PYLnVDMlCT4POr HyUCJhDiG0QwCbTFIaEMHokq3RXLNuNKDgWIZlHiMnQLNmWPSbHQncHTLfTMV9JVC7LMAyLXGkQZ3LXw YeNSBmWpYuLwYeVLAhVTCpje4VWNZaIAXrEVIsFPIf BCHgXQLsMAssSXVvTVW0NPW1PJEzBRWbDL5QZmKjAZDqYzS2MKOzXPQvTMCrpr5RXMCkLYTsKrj9AKOt XXFzUYNnYPhbDBObYCJ1YVC6CDJnBHPzKY9SMlQhURXrPbqwOjEaKQWgTYRdic7HMBSrDRKwEOJkGRVk NTOgDRQkLDrpOWMoLUD4PTTtUGUpPLYpNG4KRdDyQN CyYjt2MSTeVRTvMZOjjt2ZOXYfJKB5UJZ8RJObIDApXLDsTJhoOMDpBQCsNRr3MHErXAJiSF6MNqOgZB CwHSM4VbrrLAFiJELnog0QXFXxSYY4ZYn1QrJkOUAhIHWoUQsaQYXiQCXwEWQ0CAJbUKNzMT1BKbJmTE DbOMVxXPKcQSRqZMMzvh8RPDKhHOR7GtN5PpKyNDVk NDPzPEmySTJvUVBcPgNgJUGyIVPqIL7PAbQcDFGwJMBiSCPdYYOmWHSomj2CFUBcFWK9UBD2ZnRcNOAs UESpIItxTGBzPIO1ZIz4RDXsOVSrUG3AAgYkTLjiBXHUYge5LYvhJ4i4LGU9NE3CT8Yyv3RuLomkJNSC TBgzUA0jzcXbAVBsZd0IF7aMWnhsVWBmTgcgVbeqVt g1KhSaULR0HYKySAH2ZNNvAhSdKQ2qMOQxMsTsMTUyPWRoSde5JJGjEmFpMHZ9XckdMxTnMQT5EeKlKT 4VAt1BExO2EAT7kINqAy4QFAA0RnZUZeDpXS0TNGj= ID Date Data Source [id number] 03/15/2021 02:39:21 PM EST [facility] Name Value Range Interpretation Code Description Data Deepa rce(s) Supporting Document(s) Progress Note [facility] GQCBCy7hUfUGKlMa03/NAFwjWPNnc1ZpWFsjHWu5SBslYNUvV9LhCZL0sT3aNOE4UGyPJgCoThRsBUC4 lbm [file] DkBR6LHw7DNvC2VMF2dGEuPd9EYtIeUGyFXdLwIU8SJXt= ID Date Data Source [id number] 03/15/2021 02:39:16 PM [facility] Name Value Range Interpretation Code Description Data Deepa rce(s) Supporting Document(s) Progress Note [facility] KXMXHo0rKwSEIrUk52/OQLtnZTGfl4ZwMLbsSLj3YKjwJPBiE4PoUYY8qK0fBUW4CPlTCgBrGhKeGZZ8 lbm [file] AgICAgICAgICAgICAgICAgICAgICAgICAgICAgICAg RPRgPNNfTSHnXT3URSHnTBNoFADtMMFkYOCuNEHmGAWwGRRuNKAjEGPiRSDiTECcVWXqTPHrPZKiLQRk NIQpNFMeBICkBTGwTOPqZVIgNYVdMVTiDCKaWQPqXDQqPMXoSVOcFXUkNWRyWPWtKOYwLG8DMUVmSILu ICAgICAgICAgICAgICAgICAgICAgICAgICAgICAgIC AgICAgICAgICAgICAgICAgICAgICAgICAgICAgICAgICAgICAgICAgICAgICAgICAgICAgICAgICAgIC AgBI1SESHsEIYjNMBmQPZaTMLsJJZqIOBbVKLaWBXlPUHqNKCcXUNqAMDvGKUjTIIbHELlIZZnMUXuMU AgICAgICAgICAgICAgICAgICAgICAgICAgICAgICAg EEKaVFMqJFWzTACgOC6WEDVnFIWxMJMjYPEwGVCqSKVvUTZiTAOxMJZfPHVqAYPmZUQbIGTbYCIlELDb JGIxQJAwQCAuNMNhZBSjCOLmLBElBRMrHWDnMSDkIFRqBNKpVZBjRESgMIIoSZDrKEFmZABlKZ6HIRYc ICAgICAgICAgICAgICAgICAgICAgICAgICAgICAgIC AgICAgICAgICAgICAgICAgICAgICAgICAgICAgICAgICAgICAgICAgICAgICAgICAgICAgICAgICAgIC TmTKJtFV7HYFJnXZPnKWPyHFRaQCEvSXWhWZFwQHTgAFZhSMQuXLCdGWZxNMWkUANwPIFaTSKoSEQtQU AgICAgICAgICAgICAgICAgICAgICAgICAgICAgICAg ZXVdWHLzVIAvOALkURZgQG2PWBXlDEQfMGDqXBZqKXJdYJHjLHJvOGThQPZzIGWuYORxDLKgGOCgMNJh NPBnNGRjABRcBEJiRMNiSWNuVOTwJARsOUFuRXHtBECeHMKnGQGdRUBjBRPcVIEkYZAeBBStAZQkMU9U ICAgICAgICAgICAgICAgICAgICAgICAgICAgICAgIC AgICAgICAgICAgICAgICAgICAgICAgICAgICAgICAgICAgICAgICAgICAgICAgICAgICAgICAgICAgIC SmYKHsCMZkFT8RZIOrHRTsYFHuVQXpUPEhVHUeLMDxEZCtPGXwQIJxBAHuQVLsIMJnADXrXPNfRFHpOP AgICAgICAgICAgICAgICAgICAgICAgICAgICAgICAg TRBxZCDsGNLjQAQeJGYrTGUnZG1MJM22cKDwh8A9JPMnBS5lxwi/Ko3PFIknwbQjcQEnMB0EIxSsJY8v ey7GHcXnVJ6ccy2ESNuNQiDsU9C7rIGfRVEmWKIOQlDgG90dVNjnVu58NUqkXDPvHmVcTOo8Ny9JMsEr H0gqNYMsBrQ6TUWqFzM1VXTvZaDoOOAcKBJhPDJeNK XBWWC7IMPqZhNwYvHjTBTkWKfaMEMNHNFdDRZkInFnPFfjGD3Mc5TeuOX1EAq+Br9IVQ9lx8GlNNriLu KkZX3ndz8HSLjJThTvR1AzmsK1EDV4XKTeDw5CPYJbEOOjeKJgNOJcOZUZBeRlR0WhlO70PZRIWj5+DQ fvdgUvHczZTmF2BXTer8TtTSy1WY6OREWvLVm0hFNc ZAMmN0Jne4UlRi76UBIdYeqwITwcBEofxjjgRNHAZxOBEYI6TDfoLzFdGnFxBOWgFSakOXJTFMwYNpRj K1Mpz0DoXfO5CLGmIyLtKBidTUPzYiY6IF22eSszMT5NEPSoEDHgXI73JZB1XYXyXo8PVy1DZiCtFX8h vq2RDeVrHQ0vka0GUNsXAtJtS1E4wQTwL7Uvqg02GU 7OyZZ7fUFwPD9WeV2gJK1Tc2EdKHRoEbWiHHUeLTDiCFDgRQSyCqFuCC0EUJVqEkHbyFStSKBwFQD6HH OrQmD9LXTwRJ6ULVOcPIL2DB3SSH9UZwqrZ3HDDIhegMflUuVDYQJ/VKXTSOCKWMotVLDxT86IA7QNJS iVTnlyTRgODykoHi5pCVm+Vh4AMN5el4AwSEaxETXr DW2piu5ZQWyXXlXqR0G8eMEjI2Z6UOedIp8SOZUoNSTwDpEcMGFCBTfqWH2NSD3fknW2JK3EjPAiEZGr TJGikXViAIu0F22jwMCtGJtdNT9ATDR+Justina+Xv6CJENqHSFjLXXgKtAdUKUBDoQsY8PxC9ZYv2QfK0Zn GT94fAtjmsRiSCziPW6YNA4cDAEcLXUEVX0InHDdmA 8krnZrJyQvEJLQSdHnN50pnIXmZBGyHOY4DUQqWa8OFIToK3YxbvHqiCahdhUqDCXdTSQURX0WNQnmuc WnaNZyfVaaGL96nMphYO6BPl7ZUbEuSQ9dvh9GhTCeGc9SVMK0ED9IZSFjTAUrDHDnJKG1AMZxRxYzJZ irXFIbSTTyFJG3IZEqJJXjMI2LMqQcONNfOWM1IiSy TZAdGCCneu4NLVBwLNO3FAEoSTVmRPYjWCGdPYiqYRMlXTZoWZR8YHLhRBHiFV8OVyRvUPTyNKUsNnon CYQoLMQcfa8OXEVeSDO7SQN5TrDcENZhKPXnFPayYCBbWHSfDMy0UCOlGJSdBH1INeQeXVPeERq6NzTt BKPrZYGdvs5ZUYYsSDUtGgqiJjFkGANhCBHzJQewIP GwUSGyJZRdCMQgHWRzVI0DLsBhNKNpHKD2KGFlGMYdPPFhla3HKOXhTCEnVJFjWJAsHEAtLITpHFgiQS ZlCXS2AcZvVHPgCDYqZG7CTaYnKGLpIKvoJgHoMJUhMTCjzp3YOUHlVZFqUXJcUjTfNCEdUBLnGUbdUA XxQQBeAZYiFRMjJSOnKU5CGfBnNNRgJjH0XtpqHTNt ZXSfbe1XBXXtTXRoYGW2SdKvSCJpLKNyAXapYIOtHWE5DNw0QOIsJQQxVW7IRsOxJRTeFvE0MYvkSRIl MWHddk2RKEBgWRGbYyZ0NYDuXMZhSFVnRNtrLMAjROZ4DKA5PBIcZOOeMZ2KIbJlBEPqYttiSWDjSPJy WXFaov9DIEExPOJgQOMlKHVnDSHgMZYzSBhwIFTgXA L1LpldOPRhZIIyOU5KOmGhMQWsHer6WEJhEDYlTIQcfh9OPELgZDMpMHg7VqCkURJjQDQcYTipDVHsGT GeDtKsQSTrIGFcVP6BWbAzOZWlMND0BekgLJWgXMTeus0TWDDlNLP4BLp6LzRzAQGiFFFeLMhlEOCdGV ItTNk7DFIcUTTfRZ3JIxAdFEDgJIFvNOJeLZUpNRGg jz3PNVArVVR8PbB5BdKtDTWhXJQrHFlcJOCiDIAvLdv7EZKgAPDnME9CVcSsEEPvHEX9PKDcGRWuZKUv ip8KQFZyIOC1Spa9OFFqGPGgWGSnPRqoBSNmNEY9XkA4WMFrFGDsUC3BWrVmTSViOWC3OufuALFxNLZs bp6GJQVxOGS7NWj3OPQjXKQiSPXmNUd1zpAbxVZsJJ f9LY1EG8LvjmAeSVRECp6In929PRC7BAUyHn5RM6thFi7lRHYoUKNGBj8LVCe8ANHmPCNlOIN2DoCrZR McKdK6VYhtZmykUIwuWzF3KAD+AWjqWZW6TdS9EkCsYtK6B1KlDlA0R8MwYFGlSMV9GAZrUe0dIYCAQu 4+GNzirLTlrJkpVIKJQfL3FFyhVBroOTWYZf4J ID Date Data Source [id number] 03/12/2021 12:27:20 PM EDT [facility] Name Value Range Interpretation Code Description Data Deepa rce(s) Supporting Document(s) Progress Note [facility] LWPONe9gOeGTHrUx91/ICKtuYHGqq7UaRBegQPq2KDubJFGqZ5UoJLN7aP5bWGV5EMuQIuKqLpMvNRF3 lbm [file] T1PmH5OXN4O7DyNDMoDEIzHvB5QaGqEG4GFl6PNbD7JGN7jWOkXc8TMqGdXhlQIsYeOZ0MPTr= ID Date Data Source [id number] 03/10/2021 11:52:42 AM EDT [facility] Name Value Range Interpretation Code Description Data Deepa e(s) Supporting Document(s) Leukocytes [#/volume] in Blood by Automated count 3.9 10*3/uL 4-10 L [facility] Erythrocytes [#/volume] in Blood by Automated count 3.05 10*6/uL 4.1- 5.3 L [facility] Hemoglobin [Mass/volume] in Blood 10.2 g/dL 11.5-15.5 L [facility] Hematocrit [Volume Fraction] of Blood by Automated count 30.6 % 3 6-45 L [facility] Erythrocyte mean corpuscular volume [Entitic volume] b y Automated count 100.1 fL 80-96 H [facility] Erythrocyte mean corpuscular hemoglobin [Entitic mass] by Automated count 33.5 pg 27-33 H [facility] Erythrocyte mean corpuscular hemoglobin concentration [Mass/volume] by Autom[facility] 33.5 g[facility] width [Ratio] by Automated count 17.8 % 11.5-14.5 H [facility] Platelets [#/volume] in Blood by Automated count 88 10*3/uL 150-400 L [facility] Differential cell count method - Blood [facility] Neutrophils/100 leukocytes in Blood by Automated count 56 % [facility] Lymphocytes/100 leukocytes in Blood by Automated count 32 % [facility] Monocytes/100 leukocytes in Blood by Automated count 10 % [facility] Eosinophils/100 leukocytes in Blood by Automated count 2 % [facility] Basophils/100 leukocytes in Blood by Automated count 0 % [facility] Neutrophils [#/volume] in Blood by Automated count 2.12 10*3/uL 1.8-7 .0 [facility] Lymphocytes [#/volume] in Blood by Automated count 1.25 10*3/uL 1.2-4 .0 [facility] Monocytes [#/volume] in Blood by Automated count 0.40 10*3/uL 0-0.8 [facility] Eosinophils [#/volume] in Blood by Automated count 0.09 10*3/uL 0-0.5 [facility] Basophils [#/volume] in Blood by Automated count 0.01 10*3/uL 0-0.2 [facility] Nucleated erythrocytes/100 leukocytes [Ratio] in Blood by Automated count 0 /100{WBCs} 0-0 [facility] ID Date Data Source [id number] 02/28/2021 02:45:00 PM EDT [facility] Name Value Range Interpretation Code Description Data Deepa rce(s) Supporting Document(s) SARS-CoV-2 RNA Resp Ql PEBBLES+probe NOT DETECTED [facility] This lab was ordered by GARY chen and reported by GARY Villa. ID Date Data Source [id number] 02/24/2021 10:36:53 AM EDT [facility] Name Value Range Interpretation Code Description Data Deepa rce(s) Supporting Document(s) ABO and Rh group [Type] in Blood [facility] Blood group antibody screen [Presence] in Serum or Plasma [facility] Blood bank comment [facility] ID Date Data Source [id number] 02/24/2021 08:54:14 AM EDT [facility] Name Value Range Interpretation Code Description Data Deepa rce(s) Supporting Document(s) Leukocytes [#/volume] in Blood by Automated count 3.1 10*3/uL 4-10 L [facility] Erythrocytes [#/volume] in Blood by Automated count 2.82 10*6/uL 4.1- 5.3 L [facility] Hemoglobin [Mass/volume] in Blood 9.6 g/dL 11.5-15.5 L [facility] Hematocrit [Volume Fraction] of Blood by Automated count 27.7 % 3 6-45 L [facility] Erythrocyte mean corpuscular volume [Entitic volume] by Auto mated count 98.0 fL 80-96 H [facility] Erythrocyte mean corpuscular hemoglobin [Entitic mass] by Automated count 34.0 pg 27-33 H [facility] Erythrocyte mean corpuscular hemoglobin concentration [Mass/volume] by Automated count 34.7 g/dL 32.0-[facility] width [Ratio] by Automated count 21.4 % 11.5-14.5 H [facility] Platelets [#/volume] in Blood by Automated count 51 10*3/uL 150-400 L [facility] Differential cell count method - Blood [facility] Neutrophils/100 leukocytes in Blood by Automated count 46 % [facility] Lymphocytes/100 leukocytes in Blood by Automated count 40 % [facility] Monocytes/100 leukocytes in Blood by Automated count 12 % [facility] Eosinophils/100 leukocytes in Blood by Automated count 2 % [facility] Basophils/100 leukocytes in Blood by Automated count 0 % [facility] Neutrophils [#/volume] in Blood by Automated count 1.42 10*3/uL 1.8-7 .0 L [facility] Lymphocytes [#/volume] in Blood by Automated count 1.25 10*3/uL 1.2-4 .0 [facility] Monocytes [#/volume] in Blood by Automated count 0.38 10*3/uL 0-0.8 [facility] Eosinophils [#/volume] in Blood by Automated count 0.05 10*3/uL 0-0.5 [facility] Basophils [#/volume] in Blood by Automated count 0.01 10*3/uL 0-0.2 [facility] Nucleated erythrocytes/100 leukocytes [Ratio] in Blood by Automated count 0 /100{WBCs} 0-0 [facility] ID Date Data Source [id number] 02/24/2021 09:38:37 AM EDT [facility] Name Value Range Interpretation Code Description Data Deepa rce(s) Supporting Document(s) Albumin [Mass/volume] in Serum or Plasma by Bromocresol green (BCG) dye binding method 4.4 g/dL 3.5-5.2 [facility] Bilirubin.total [Mass/volume] in Serum or Plasma 0.5 mg/dL <1.2 [facility] Calcium [Mass/volume] in Serum or Plasma 11.0 mg/dL 8.8-10.2 H [facility] Chloride [Moles/volume] in Serum or Plasma 100 mmol/L 98-107 [facility] Creatinine [Mass/volume] in Serum or Plasma 0.56 mg/dL 0.50-0.90 [facility] Glucose [Mass/volume] in Serum or Plasma 105 mg/dL 70-140 [facility] Alkaline phosphatase [Enzymatic activity/volume] in Serum or Plasma 76 U/L 35-104 [facility] Potassium [Moles/volume] in Serum or Plasma 3.6 mmol/L 3.4-5.1 [facility] Protein [Mass/volume] in Serum or Plasma 6.9 g/dL 6.4-8.3 [facility] Sodium [Moles/volume] in Serum or Plasma 136 mmol/L 136-145 [facility] Aspartate aminotransferase [Enzymatic activity/volume] in Serum or Plasma 18 U/L <32 [facility] Urea nitrogen [Mass/volume] in Serum or Plasma 15 mg/dL 8-23 [facility] Osmolality of Serum or Plasma by calculation 284 mosm/kg 275-300 [facility] Creatinine/Urea nitrogen [Mass Ratio] in Serum or Plasma 26 [facility] Bicarbonate [Moles/volume] in Serum 26 mmol/L 22-29 [facility] Alanine aminotransferase [Enzymatic activity/volume] in Seru m or Plasma 14 U/L <33 [facility] Anion gap 3 in Serum or Plasma 11 mmol/L 8-15 [facility] Glomerular filtration rate/1.73 sq M pre dicted among non-blacks [Volume Rate/Area] in Serum or Plasma by Creatinine-based formula (MDRD) >6 0 [facility] Glomerular filtration rate/1.73 sq M pre dicted among blacks [Volume Rate/Area] in Serum or Plasma by Creatinine-based formula (MDRD) >60 [facility] ID Date Data Source [id number] 02/20/2021 03:19:50 PM EDT [facility] Name Value Range Interpretation Code Description Data Deepa rce(s) Supporting Document(s) Progress Note [facility] YSGGXv9wNuUFRwEg10/GYJocWFLcx9CeJMiiZCl1XLwlMFEhW2NzKTN3nF5vDMQ8HXhAZoLuCvAkDSW6 m KqLsdYYvRxCNOdVkdKWdGpALuuZbgsmBNiGF9SaHP0NRAdE72wSJVnUWJsB8CkBPBfYZA+Ol6YOLZybM RfMQ6ZXamX7I9Iagi8Ah9wOQ8ZfFBEfGEzG/meGPBLp247Y6q7Q2aA8WHodNRUkAXOthF850rP5RNqcf tCf+ftNafuxYdSTRPWWqh7q3hxOhh1l1iUOtly1Uu/ +t5gngPDrrsfU2Gzmqdbs16+RN0AT71IA9UgYxvkhu//4SNZJkqsyPm5wYItJH1MINfgE9YHvBR901xf giaZNf4f6EZ5Ix/gbWs6Uuc+oF0nfP/99+shannon/FxTD5vZQN0ws/IPS4KEcmc1PaIjdzjWIba0I45gDOh C6bYYaKBvR5bSg7qLiSQ5AuomEQeMYeAB1E7Ha3UE7 Vqt/+ar2mI5VHVLhb9pzUGcm8HJSCT/wrbLV8d3R5ojE5Q7xH7GlwMWvzf12EKnXVmljaJeAM87LkxqL QkY36ew5SDOPrqoCUlMwfuoF9Qd7V40itl0+6afEkm5dfqU3gwoqActWBHi7w+Sz/Yo3UMdN/nLY5Gdv sBK4v847F3OR565Js05eL1nWHqu4zVQnL8bBLt0Ks6 [file] service order taker+JVQHRYsYAi0DdaPNn0IXzFxPVLpa4umUjYqfnEoL2/X72DkhX9CiNcLqPTDldJ4HNR61F74lBmBM [file] 4+UDbxaDOuiKamXUCOKbR9LJF0LJdvSCPIIu5X ID Date Data Source [id number] 02/20/2021 03:15:24 PM EDT [facility] Name Value Range Interpretation Code Description Data Deepa rce(s) Supporting Document(s) Progress Note [facility] BMFGXr7mBrJGVdMr92/YTIxaCCUlf6AfZQwuMHc2OXgePZCcF2KdUOO0kL9hLPA8KOhSFaBjYpKrHLS9 lbm [file] ZzUqGR8TNf0GFzW6PGL3cKHkRk9EWDG5IViVCuOmCP5PNJf= ID Date Data Source [id number] 02/17/2021 10:01:39 AM EDT [facility] Name Value Range Interpretation Code Description Data Deepa rce(s) Supporting Document(s) Leukocytes [#/volume] in Blood by Automated count 3.1 10*3/uL 4-10 L [facility] Erythrocytes [#/volume] in Blood by Automated count 2.76 10*6/uL 4.1- 5.3 L [facility] Hemoglobin [Mass/volume] in Blood 9.2 g/dL 11.5-15.5 [facility] Hematocrit [Volume Fraction] of Blood by Automated count 26.8 % 3 6-45 L [facility] Erythrocyte mean corpuscular volume [Entitic volume] by Auto mated count 97.1 fL 80-96 H [facility] Erythrocyte mean corpuscular hemoglobin [Entitic mass] by Automated count 33.4 pg 27-33 H [facility] Erythrocyte mean corpuscular hemoglobin concentration [Mass/volume] by Automated count 34.4 g/dL 32.0-36.0 [facility] width [Ratio] by Automated count 20.0 % 11.5-14.5 H [facility] Platelets [#/volume] in Blood by Automated count 23 10*3/uL 150-400 [facility] No significant change since last result called Differential cell count method - Blood [facility] Neutrophils/100 leukocytes in Blood by Automated count 48 % [facility] Lymphocytes/100 leukocytes in Blood by Automated count 41 % [facility] Monocytes/100 leukocytes in Blood by Automated count 10 % [facility] Eosinophils/100 leukocytes in Blood by Automated count 1 % [facility] Basophils/100 leukocytes in Blood by Automated count 0 % [facility] Neutrophils [#/volume] in Blood by Automated count 1.49 10*3/uL 1.8-7 .0 L [facility] Lymphocytes [#/volume] in Blood by Automated count 1.28 10*3/uL 1.2-4 .0 [facility] Monocytes [#/volume] in Blood by Automated count 0.32 10*3/uL 0-0.8 [facility] Eosinophils [#/volume] in Blood by Automated count 0.02 10*3/uL 0-0.5 [facility] Basophils [#/volume] in Blood by Automated count 0.00 10*3/uL 0-0.2 [facility] Nucleated erythrocytes/100 leukocytes [Ratio] in Blood by Automated count 0 /100{WBCs} 0-0 [facility] ID Date Data Source [id number] 02/17/2021 09:45:00 AM EDT [facility] ([facility]) Name Value Range Interpretation Code Description Data Deepa rce(s) Supporting Document(s) Thyrotropin [Units/volume] in Serum or Plasma by Detec tion limit <= 0.05 mIU/L 1.050 u[IU]/mL 0.270-4.200 [facility] Calcidiol [Mass/volume] in Serum or Plasma 39 ng/mL [facility] ([facility]) ID Date Data Source [id number] 02/17/2021 09:33:35 PM EDT [facility] Value Range Interpretation Code Description Data Deepa rce(s) Supporting Document(s) Calcidiol [Mass/volume] in Serum or Plasma 39 ng/mL >30 [facility] ID Date Data Source [id number] 02/17/2021 01:37:14 PM [facility] Value Range Interpretation Code Description Data Deepa rce(s) Supporting Document(s) Thyrotropin [Units/volume] in Serum or Plasma 1.050 u[IU]/mL 0.270-4. 200 [facility] ID Date Data Source [id number] 02/12/2021 11:29:16 AM [facility] Name Value Range Interpretation Code Description Data Deepa rce(s) Supporting Document(s) Progress [facility] QMGGHr3tUoXJVuIj70/YIUlkBRAlh6XePFysTQz8GFxhJVDjT5MoXDM4hB7yTTU9XSgPGpCiYvXqQCA9 [facility] [file] [id number]= ID Date Data Source [id number] 02/14/2021 01:02:16 AM EDT [facility] Name Value Range Interpretation Code Description Data Deepa rce(s) Supporting Document(s) Blood bank comment [facility] ID Date Data Source [id number] 02/12/2021 12:23:55 PM EDT [facility] Name Value Range Interpretation Code Description Data Deepa rce(s) Supporting Document(s) Blood group antibodies identified in Serum or Plasma [facility] Blood bank comment [facility] ID Date Data Source [id number] 02/12/2021 12:23:29 PM EDT [facility] Name Value Range Interpretation Code Description Data Deepa rce(s) Supporting Document(s) ABO and Rh group [Type] in Blood [facility] Inconclusive Result, repeat testing requ ired. Blood bank comment [facility] Inconclusive Result, repeat testing requ ired. Service comment [facility] ID Date Data Source [id number] 02/12/2021 09:53:45 AM EDT [facility] Name Value Range Interpretation Code Description Data Deepa rce(s) Supporting Document(s) Leukocytes [#/volume] in Blood by Automated count 3.8 10*3/uL 4-10 L [facility] Erythrocytes [#/volume] in Blood by Automated count 2.81 10*6/uL 4.1- 5.3 L [facility] Hemoglobin [Mass/volume] in Blood 9.2 g/dL 11.5-15.5 [facility] Hematocrit [Volume Fraction] of Blood by Automated count 27.2 % 3 6-45 L [facility] Erythrocyte mean corpuscular volume [Entitic volume] by Auto mated count 96.6 fL 80-96 H [facility] Erythrocyte mean corpuscular hemoglobin [Entitic mass] by Automated count 32.8 pg 27-33 [facility] Erythrocyte mean corpuscular hemoglobin concentration [Mass/volume] by Automated count 33.9 g/dL 32.0-[facility] width [Ratio] by Automated count 18.8 % 11.5-14.5 [facility] Platelets [#/volume] in Blood by Automated count 17 10*3/uL 150-400 [facility] No significant change since last result called Differential cell count method - Blood [facility] Neutrophils/100 leukocytes in Blood by Automated count 62 % [facility] Lymphocytes/100 leukocytes in Blood by Automated count 29 % [facility] Monocytes/100 leukocytes in Blood by Automated count 8 % [facility] Eosinophils/100 leukocytes in Blood by Automated count 1 % [facility] Basophils/100 leukocytes in Blood by Automated count 0 % [facility] Neutrophils [#/volume] in Blood by Automated count 2.38 10*3/uL 1.8-7 .0 [facility] Lymphocytes [#/volume] in Blood by Automated count 1.09 10*3/uL 1.2-4 .0 L [facility] Monocytes [#/volume] in Blood by Automated count 0.32 10*3/uL 0-0.8 [facility] Eosinophils [#/volume] in Blood by Automated count 0.03 10*3/uL 0-0.5 [facility] Basophils [#/volume] in Blood by Automated count 0.00 10*3/uL 0-0.2 [facility] Nucleated erythrocytes/100 leukocytes [Ratio] in Blood by Automated count 0 /100{WBCs} 0-0 [facility] ID Date Data Source [id number] 02/12/2021 09:33:01 AM EDT [facility] Name Value Range Interpretation Code Description Data Deepa rce(s) Supporting Document(s) Progress Note [facility] ELETGy6zHqIHUbOc11/EQRqeXFXoz8ItYAvvERl7IDpkFHYrN4WdAQR4pF2oFSE0XVsKKhIwRrPwPGF0 lbm [file] AgICAgICAgICAgICAgICAgICAgICAgICAgICAgICAg ICAgICAgICAgICAgICAgICAgICAgICAgICANCiAgICAgICAgICAgICAgICAgICAgICAgICAgICAgICAg ICAgICAgICAgICAgICAgICAgICAgICAgICAgICAgICAgICAgICAgICAgICAgICAgICAgICAgICAgICAg ICAgICAgICANCiAgICAgICAgICAgICAgICAgICAgIC AgICAgICAgICAgICAgICAgICAgICAgICAgICAgICAgICAgICAgICAgICAgICAgICAgICAgICAgICAgIC AgICAgICAgICAgICAgICAgICANCiAgICAgICAgICAgICAgICAgICAgICAgICAgICAgICAgICAgICAgIC AgICAgICAgICAgICAgICAgICAgICAgICAgICAgICAg ICAgICAgICAgICAgICAgICAgICAgICAgICAgICANCiAgICAgICAgICAgICAgICAgICAgICAgICAgICAg ICAgICAgICAgICAgICAgICAgICAgICAgICAgICAgICAgICAgICAgICAgICAgICAgICAgICAgICAgICAg ICAgICAgICAgICANCiAgICAgICAgICAgICAgICAgIC AgICAgICAgICAgICAgICAgICAgICAgICAgICAgICAgICAgICAgICAgICAgICAgICAgICAgICAgICAgIC AgICAgICAgICAgICAgICAgICAgICANCiAgICAgICAgICAgICAgICAgICAgICAgICAgICAgICAgICAgIC AgICAgICAgICAgICAgICAgICAgICAgICAgICAgICAg ICAgICAgICAgICAgICAgICAgICAgICAgICAgICAgICANCiAgICAgICAgICAgICAgICAgICAgICAgICAg ICAgICAgICAgICAgICAgICAgICAgICAgICAgICAgICAgICAgICAgICAgICAgICAgICAgICAgICAgICAg ICAgICAgICAgICAgICANCiAgICAgICAgICAgICAgIC AgICAgICAgICAgICAgICAgICAgICAgICAgICAgICAgICAgICAgICAgICAgICAgICAgICAgICAgICAgIC AgICAgICAgICAgICAgICAgICAgICAgICANCiAgICAgICAgICAgICAgICAgICAgICAgICAgICAgICAgIC AgICAgICAgICAgICAgICAgICAgICAgICAgICAgICAg ICAgICAgICAgICAgICAgICAgICAgICAgICAgICAgICAgICANCjw/yKYnW9gnlPHxxtZ8H6afXe9RDr6V DZ9tq7PuFIDmILbsbyIaKxvVIrDmMRXqMrwPXsp8XJioZJ5DeHWeP3TcA6NeJCzvBL2AUYFmLJByaDUr EFFxORGkHmD3IBDaMQutDO5ByXTwIQslYVFxERNxYS 3JFPJqG469unAeMC7AFs8HQuUxNA9vpl1PBsApFWIhUajIDyp5PFtjLS9SeTYsoCOlAjUvDEPOMnIlP1 too7SqLhEzWGAKGQeuEY6Lb2TlqHYlBZs+Ja7GLW3og1MbXIoaJaPzBK8aum5NPTjMKePeI5OmjHyfRL Yee2wrXDQiOM0nyAEdMYR1HPWspgxdORosTNfetmva hPpaYOWrQGLaUWLdNu9hRMBkVES2QwK5GQWHLR6GDLOuTVVpmHHwVGVyKZFWQQ9AQUtzJCE6SPHcurYk vLUhUDdsRG8KFRVzdjDhZyApBIHLXLv+Yb8PXX2ev8JjANwbEOEdKV2idz5VPWxETvJzV2W2pFXsG2L7 MXdkFb4MQQTeEJRiUtVrDZITMMqpOI3NGL3ymuL7NJ 9HeUHkHJLoXPHvoRHbZEp1S25klBJkUJyeVP3NXSS+Justina+Ut1GSRXyVBHrCFMtLcImHZRFTiNzJ0PhO2 QYg7YwS3HwAK25lVebzxFhJLbqEG3EDC1sQNYkREOJKX0GvZZniT1chwJeGwAnIKGVObOdX83eeNOjVZ DyOQXtZNRvBm2JDYBgG9GfocYzlEllapYpMGDlHMHJ GS8QYFhnmuEncICkyWzoMF49xPfbAT0MLx1MDuZuGH9yis2RvMPdJg0YEMFaZT1RESKtQHEpSDWoIAD1 TWIiMlPjSGqwHWSpYTAoVZQ9VTGrNEZwDB3ELaGmQOTcQFn7FWUfDCPuRDWjol2UHXAbDOGkAFO5NLCz ZCZxOVZxXGqnERFzCNQsNEH5OFGgTXAhIH7MWrLjTM PtGIEqFBHwRNVbIHTkun9QKWKqVYCiKdM5EVYkGMMdKOKkUUxpMBLbNAX7JsY7ADQbCISfHO6KDrNxJE JeWEO1NGYwMPCvXTIpge3QFKJhKDEiWOLgNTXwWOFeAZVkSEgbUDSrHOR5DIwzWIDlJPDzDP9WXlWtBK EmBBP5GCQrWMTaTPUdby4KJBYaOKJeFSf6BMScHPYw PEOsXTjoMHAmFOP0XvG1QLWzJAUxZO6KXpXqBGWfJUn2GNVxEOPxFWImmm2UUTKwPHVvRvl2YHIhDOYy LGCmJBplISUfGPL5VAfjMTUdXSDpNL6AEeAuYGQcEJzwEqmcNXBkZGVjio5EJWKmUHPsPHL0RCEkZGMl YYEiULoiRRCqOLL4FePuSGLxLGGoXL7EBgFvXYJaLI b6BzDoEERxUNQspa4SHBBlWCJaTFu6DTExGXBjDNPcPPghWAQaCFHmBaw9ETRnNZFhAJ5UMrQuZHTkMu F2WAnkVOMbQVSlwa6YPKEbSCRmOCDmLMAmTGRsGAQlUPw7akDtnECmJFt3PC5KR2SwgeZmZxKXBo6Au5 99IKH8DYHiXp1KY5zoSf2qPCOoMCLBFm1MAPs2Htn0 SCO0CJL8OTNnCxU7HXOfVbCbFSIeLyQyEZKpHqC+UGfsOEQcTyO9JfOjLYAdDdSzBGNqMQFtMBV8SEN3 ZKQ8LJ7eJDVGGz0+NJerkZSkoNqfBGXBOaHrWDOgHNnnOZDKWu3G ID Date Data Source [id number] 02/12/2021 09:32:56 AM EDT [facility] Name Value Range Interpretation Code Description Data Deepa rce(s) Supporting Document(s) Progress Note [facility] AZWNLq2bIyCZZvFq10/DPXxgMEUbm5UhZVujJFy7QIkaICAnQ6PoTTY5lN4fPZT9VLkEUkDgJpXcTMH9 lbm [file] chKb1C2qRshoZL8lhNGz4t2hD2edqvVlwOAtnPEZ3VLvYu97kDoLK4Y6Cb+0iH+rR+ekqRXluegG+[employer]+ [file] JoY5BQL6HZEbB3Y4SzY6KwQpBX3PIh0JKsY1ATC1oAPaUe7KPUtyYntFZhXqIB2ESJe= ID Date Data Source [id number] 02/10/2021 02:18:29 PM EDT [facility] Name Value Range Interpretation Code Description Data Deepa rce(s) Supporting Document(s) Leukocytes [#/volume] in Blood by Automated count 5.1 10*3/uL 4-10 [facility] Erythrocytes [#/volume] in Blood by Automated count 2.81 10*6/uL 4.1- 5.3 L [facility] Hemoglobin [Mass/volume] in Blood 9.2 g/dL 11.5-15.5 L [facility] Hematocrit [Volume Fraction] of Blood by Automated count 27.0 % 3 6-45 L [facility] Erythrocyte mean corpuscular volume [Entitic volume] by Auto mated count 96.2 fL 80-96 H [facility] Erythrocyte mean corpuscular hemoglobin [Entitic mass] by Automated count 32.7 pg 27-33 [facility] Erythrocyte mean corpuscular hemoglobin concentration [Mass/volume] by Automated count 34.0 g/dL 32.0-36.0 [facility] width [Ratio] by Automated count 18.3 % 11.5-14.5 H [facility] Platelets [#/volume] in Blood by Automated count 20 10*3/uL 150-400 LL [facility] Called to and read back bySamira HOLLAND at 1418 by 1472 Differential cell count method - Blood [facility] Neutrophils/100 leukocytes in Blood by Automated count 58 % [facility] Lymphocytes/100 leukocytes in Blood by Automated count 32 % [facility] Monocytes/100 leukocytes in Blood by Automated count 9 % [facility] Eosinophils/100 leukocytes in Blood by Automated count 1 % [facility] Basophils/100 leukocytes in Blood by Automated count 0 % [facility] Neutrophils [#/volume] in Blood by Automated count 2.93 10*3/uL 1.8-7 .0 [facility] Lymphocytes [#/volume] in Blood by Automated count 1.64 10*3/uL 1.2-4 .0 [facility] Monocytes [#/volume] in Blood by Automated count 0.46 10*3/uL 0-0.8 [facility] Eosinophils [#/volume] in Blood by Automated count 0.04 10*3/uL 0-0.5 [facility] Basophils [#/volume] in Blood by Automated count 0.01 10*3/uL 0-0.2 [facility] Nucleated erythrocytes/100 leukocytes [Ratio] in Blood by Automated count 0 /100{WBCs} 0-0 [facility] ID Date Data Source [id number] 02/03/2021 03:53:53 PM T [facility] Name Value Range Interpretation Code Description Data Deepa rce(s) Supporting Document(s) Leukocytes [#/volume] in Blood by Automated count 4.9 10*3/uL 4-10 [facility] Erythrocytes [#/volume] in Blood by Automated count 2.91 10*6/uL 4.1- 5.3 L [facility] Hemoglobin [Mass/volume] in Blood 9.5 g/dL 11.5-15.5 L [facility] Hematocrit [Volume Fraction] of Blood by Automated count 27.8 % 3 6-45 L [facility] Erythrocyte mean corpuscular volume [Entitic volume] by Auto mated count 95.4 fL 80-96 [facility] Erythrocyte mean corpuscular hemoglobin [Entitic mass] by Automated count 32.7 pg 27-33 [facility] Erythrocyte mean corpuscular hemoglobin concentration [Mass/volume] by Automated count 34.2 g/dL 32.0-36.0 [facility]th[facility] distribution width [Ratio] by Automated count 18.4 % 11.5-14.5 H [facility] Platelets [#/volume] in Blood by Automated count 59 10*3/uL 150-400 L [facility] Confirmed Differential cell count method - Blood [facility] Neutrophils/100 leukocytes in Blood by Automated count 35 % [facility] Lymphocytes/100 leukocytes in Blood by Automated count 37 % [facility] Monocytes/100 leukocytes in Blood by Automated count 22 % [facility] Eosinophils/100 leukocytes in Blood by Automated count 1 % [facility] Neutrophils [#/volume] in Blood by Automated count 1.72 10*3/uL 1.8-7 .0 L [facility] Lymphocytes [#/volume] in Blood by Automated count 1.81 10*3/uL 1.2-4 .0 [facility] Monocytes [#/volume] in Blood by Automated count 1.08 10*3/uL 0-0.8 H [facility] Eosinophils [#/volume] in Blood by Automated count 0.05 10*3/uL 0-0.5 [facility] Band form neutrophils/100 leukocytes in Blood by Manual count 5 % [facility] Band form neutrophils [#/volume] in Blood by Manual count 0.25 10*3 /uL 0-0.6 [facility] Dohle body [Presence] in Blood by Light microscopy [facility] ID Date Data Source [id number] 01/27/2021 01:19:29 PM EDT [facility] Name Value Range Interpretation Code Description Data Deepa rce(s) Supporting Document(s) Albumin [Mass/volume] in Serum or Plasma by Bromocresol green (BCG) dye binding method 4.3 g/dL 3.5-5.2 [facility] al Bilirubin.total [Mass/volume] in Serum or Plasma 0.5 mg/dL <1.2 [facility] Calcium [Mass/volume] in Serum or Plasma 10.6 mg/dL 8.8-10.2 H [facility] Chloride [Moles/volume] in Serum or Plasma 102 mmol/L 98-107 [facility] Creatinine [Mass/volume] in Serum or Plasma 0.59 mg/dL 0.50-0.90 [facility] Glucose [Mass/volume] in Serum or Plasma 116 mg/dL 70-140 [facility] Alkaline phosphatase [Enzymatic activity/volume] in Serum or Plasma 74 U/L 35-104 [facility] Potassium [Moles/volume] in Serum or Plasma 3.7 mmol/L 3.4-5.1 [facility] Protein [Mass/volume] in Serum or Plasma 7.1 g/dL 6.4-8.3 [facility] Sodium [Moles/volume] in Serum or Plasma 137 mmol/L 136-145 [facility] Aspartate aminotransferase [Enzymatic activity/volume] in Serum or Plasma 18 U/L <32 [facility] Urea nitrogen [Mass/volume] in Serum or Plasma 17 mg/dL 8-23 [facility] Osmolality of Serum or Plasma by calculation 287 mosm/kg 275-300 [facility] Creatinine/Urea nitrogen [Mass Ratio] in Serum or Plasma 29 [facility] Bicarbonate [Moles/volume] in Serum 26 mmol/L 22-29 [facility] Alanine aminotransferase [Enzymatic activity/volume] in Seru m or Plasma 15 U/L <33 [facility] Anion gap 3 in Serum or Plasma 9 mmol/L 8-15 [facility] Glomerular filtration rate/1.73 sq M pre dicted among non-blacks [Volume Rate/Area] in Serum or Plasma by Creatinine-based formula (MDRD) >6 0 [facility] Glomerular filtration rate/1.73 sq M pre dicted among blacks [Volume Rate/Area] in Serum or Plasma by Creatinine-based formula (MDRD) >60 [facility] ID Date Data Source [id number] 01/27/2021 09:38:24 AM EDT [facility] Name Value Range Interpretation Code Description Data Deepa rce(s) Supporting Document(s) Leukocytes [#/volume] in Blood by Automated count 3.1 10*3/uL 4-10 L [facility] Erythrocytes [#/volume] in Blood by Automated count 3.15 10*6/uL 4.1- 5.3 L [facility] Hemoglobin [Mass/volume] in Blood 10.2 g/dL 11.5-15.5 L [facility] Hematocrit [Volume Fraction] of Blood by Automated count 30.3 % 3 6-45 L [facility] Erythrocyte mean corpuscular volume [Entitic volume] by Auto mated count 96.3 fL 80-96 H [facility] Erythrocyte mean corpuscular hemoglobin [Entitic mass] by Automated count 32.6 pg 27-33 [facility] Erythrocyte mean corpuscular hemoglobin concentration [Mass/volume] by Automated count 33.8 g/dL 32.0-36.0 [facility]th[facility] distribution width [Ratio] by Automated count 19.9 % 11.5-14.5 H [facility] Platelets [#/volume] in Blood by Automated count 136 10*3/uL 150-400 L [facility] Differential cell count method - Blood [facility] Neutrophils/100 leukocytes in Blood by Automated count 46 % [facility] Lymphocytes/100 leukocytes in Blood by Automated count 41 % [facility] Monocytes/100 leukocytes in Blood by Automated count 12 % [facility] Eosinophils/100 leukocytes in Blood by Automated count 1 % [facility] Basophils/100 leukocytes in Blood by Automated count 0 % [facility] Neutrophils [#/volume] in Blood by Automated count 1.43 10*3/uL 1.8-7 .0 L [facility] Lymphocytes [#/volume] in Blood by Automated count 1.27 10*3/uL 1.2-4 .0 [facility] Monocytes [#/volume] in Blood by Automated count 0.37 10*3/uL 0-0.8 [facility] Eosinophils [#/volume] in Blood by Automated count 0.04 10*3/uL 0-0.5 [facility] Basophils [#/volume] in Blood by Automated count 0.01 10*3/uL 0-0.2 [facility] Nucleated erythrocytes/100 leukocytes [Ratio] in Blood by Automated count 0 /100{WBCs} 0-0 [facility] ID Date Data Source [id number] 01/22/2021 11:41:25 AM [facility] Name Value Range Interpretation Code Description Data Deepa rce(s) Supporting Document(s) Leukocytes [#/volume] in Blood by Automated count 3.1 10*3/uL 4-10 L [facility] Erythrocytes [#/volume] in Blood by Automated count 2.81 10*6/uL 4.1- 5.3 L [facility] Hemoglobin [Mass/volume] in Blood 9.3 g/dL 11.5-15.5 L [facility] Hematocrit [Volume Fraction] of Blood by Automated count 26.7 % 3 6-45 L [facility] Erythrocyte mean corpuscular volume [Entitic volume] by Auto mated count 95.1 fL 80-96 [facility] Erythrocyte mean corpuscular hemoglobin [Entitic mass] by Automated count 33.1 pg 27-33 H [facility] Erythrocyte mean corpuscular hemoglobin concentration [Mass/volume] by Automated count 34.8 g/dL 32.0-36.0 [facility]th[facility] distribution width [Ratio] by Automated count 20.2 % 11.5-14.5 H [facility] Platelets [#/volume] in Blood by Automated count 107 10*3/uL 150-400 L [facility] Differential cell count method - Blood [facility] Neutrophils/100 leukocytes in Blood by Automated count 36 % [facility] Lymphocytes/100 leukocytes in Blood by Automated count 47 % [facility] Monocytes/100 leukocytes in Blood by Automated count 16 % [facility] Eosinophils/100 leukocytes in Blood by Automated count 1 % [facility] Basophils/100 leukocytes in Blood by Automated count 0 % [facility] Neutrophils [#/volume] in Blood by Automated count 1.10 10*3/uL 1.8-7 .0 L [facility] Lymphocytes [#/volume] in Blood by Automated count 1.46 10*3/uL 1.2-4 .0 [facility] Monocytes [#/volume] in Blood by Automated count 0.48 10*3/uL 0-0.8 [facility] Eosinophils [#/volume] in Blood by Automated count 0.03 10*3/uL 0-0.5 [facility] Basophils [#/volume] in Blood by Automated count 0.01 10*3/uL 0-0.2 [facility] Nucleated erythrocytes/100 leukocytes [Ratio] in Blood by Automated count 0 /100{WBCs} 0-0 [facility] ID Date Data Source [id number] 01/15/2021 09:17:54 AM EDT [facility] Name Value Range Interpretation Code Description Data Deepa rce(s) Supporting Document(s) Leukocytes [#/volume] in Blood by Automated count 2.6 10*3/uL 4-10 L [facility] Erythrocytes [#/volume] in Blood by Automated count 2.56 10*6/uL 4.1- 5.3 L [facility] Hemoglobin [Mass/volume] in Blood 8.3 g/dL 11.5-15.5 L [facility] Hematocrit [Volume Fraction] of Blood by Automated count 24.1 % 3 6-45 L [facility] Erythrocyte mean corpuscular volume [Entitic volume] by Auto mated count 94.0 fL 80-96 [facility] Erythrocyte mean corpuscular hemoglobin [Entitic mass] by Automated count 32.3 pg 27-33 [facility] Erythrocyte mean corpuscular hemoglobin concentration [Mass/volume] by Automated count 34.3 g/dL 32.0-36.0 [facility] Erythrocyte distribution width [Ratio] by Automated count 16.3 % 11.5-14.5 H [facility] Platelets [#/volume] in Blood by Automated count 26 10*3/uL 150-400 LL [facility] No significant change since last result called Differential cell count method - Blood [facility] Neutrophils/100 leukocytes in Blood by Automated count 40 % [facility] Lymphocytes/100 leukocytes in Blood by Automated count 48 % [facility] Monocytes/100 leukocytes in Blood by Automated count 12 % [facility] Eosinophils/100 leukocytes in Blood by Automated count 0 % [facility] Basophils/100 leukocytes in Blood by Automated count 0 % [facility] Neutrophils [#/volume] in Blood by Automated count 1.02 10*3/uL 1.8-7 .0 L [facility] Lymphocytes [#/volume] in Blood by Automated count 1.24 10*3/uL 1.2-4 .0 [facility] Monocytes [#/volume] in Blood by Automated count 0.31 10*3/uL 0-0.8 [facility] Eosinophils [#/volume] in Blood by Automated count 0.01 10*3/uL 0-0.5 [facility] Basophils [#/volume] in Blood by Automated count 0.00 10*3/uL 0-0.2 [facility] Nucleated erythrocytes/100 leukocytes [Ratio] in Blood by Automated count 0 /100{WBCs} 0-0 [facility] ID Date Data Source [id number] 01/15/2021 09:54:08 AM EDT [facility] Name Value Range Interpretation Code Description Data Deepa rce(s) Supporting Document(s) Albumin [Mass/volume] in Serum or Plasma by Bromocresol green (BCG) dye binding method 4.0 g/dL 3.5-5.2 [facility] al Bilirubin.total [Mass/volume] in Serum or Plasma 0.4 mg/dL <1.2 [facility] Calcium [Mass/volume] in Serum or Plasma 10.5 mg/dL 8.8-10.2 H [facility] Chloride [Moles/volume] in Serum or Plasma 102 mmol/L 98-107 [facility] Creatinine [Mass/volume] in Serum or Plasma 0.59 mg/dL 0.50-0.90 [facility] Glucose [Mass/volume] in Serum or Plasma 95 mg/dL 70-140 [facility] Alkaline phosphatase [Enzymatic activity/volume] in Serum or Plasma 73 U/L 35-104 [facility] Potassium [Moles/volume] in Serum or Plasma 3.4 mmol/L 3.4-5.1 [facility] Protein [Mass/volume] in Serum or Plasma 6.4 g/dL 6.4-8.3 [facility] Sodium [Moles/volume] in Serum or Plasma 137 mmol/L 136-145 [facility] Aspartate aminotransferase [Enzymatic activity/volume] in Serum or Plasma 14 U/L <32 [facility] Urea nitrogen [Mass/volume] in Serum or Plasma 16 mg/dL 8-23 [facility] Osmolality of Serum or Plasma by calculation 284 mosm/kg 275-300 [facility] Creatinine/Urea nitrogen [Mass Ratio] in Serum or Plasma 27 [facility] Bicarbonate [Moles/volume] in Serum 26 mmol/L 22-29 [facility] Alanine aminotransferase [Enzymatic activity/volume] in Seru m or Plasma 14 U/L <33 [facility] Anion gap 3 in Serum or Plasma 8 mmol/L 8-15 [facility] Glomerular filtration rate/1.73 sq M pre dicted among non-blacks [Volume Rate/Area] in Serum or Plasma by Creatinine-based formula (MDRD) >6 0 [facility] Glomerular filtration rate/1.73 sq M pre dicted among blacks [Volume Rate/Area] in Serum or Plasma by Creatinine-based formula (MDRD) >60 [facility] ID Date Data Source [id number] 01/15/2021 03:49:02 PM EDT [facility] Name Value Range Interpretation Code Description Data Deepa rce(s) Supporting Document(s) Cancer Ag 125 [Units/volume] in Serum or Plasma 20 U/mL <38 [facility] The CA 125 assay should not be used as a screening test to detect Cancer. Its use as an aid in the management of Ovarian Cancer has been reported. CA125 values obtained using different methodologies cannot be used interchangeably. This method is manufactured by [employer] and is an electrochemiluminesence immunoassay. ID Date Data Source [id number] 01/14/2021 12:07:58 PM EDT [facility] Name Value Range Interpretation Code Description Data Deepa rce(s) Supporting Document(s) ED Provider Note [facility] DVZUDl3iIgFNAtUo62/QFHdiDHTnm0DnEKhaSJw8XVvcKPXrO1EzOAO0xP3wDCE5DSiZHlVgEwCyVBT2 lbm [file] [id number] ID Date Data Source [id number] 01/13/2021 10:13:09 AM EDT [facility] Name Value Range Interpretation Code Description Data Deepa e(s) Supporting Document(s) Leukocytes [#/volume] in Blood by Automated count 3.1 10*3/uL 4-10 L [facility] Erythrocytes [#/volume] in Blood by Automated count 2.49 10*6/uL 4.1- 5.3 L [facility] Hemoglobin [Mass/volume] in Blood 8.0 g/dL 11.5-15.5 L [facility] Hematocrit [Volume Fraction] of Blood by Automated count 23.3 % 3 6-45 L [facility] Erythrocyte mean corpuscular volume [Entitic volume] by Auto mated count 93.9 fL 80-96 [facility] Erythrocyte mean corpuscular hemoglobin [Entitic mass] by Automated count 32.3 pg 27-33 [facility] Erythrocyte mean corpuscular hemoglobin concentration [Mass/volume] by Automated count 34.5 g/dL 32.0-[facility] width [Ratio] by Automated count 15.9 % 11.5-14.5 H [facility] Platelets [#/volume] in Blood by Automated count 19 10*3/uL 150-400 [facility] Called to and read back by SAMIRA MERCADO RN AT 1012 BY 2045 Differential cell count method - Blood [facility] Neutrophils/100 leukocytes in Blood by Automated count 53 % [facility] Lymphocytes/100 leukocytes in Blood by Automated count 36 % [facility] Monocytes/100 leukocytes in Blood by Automated count 11 % [facility] Eosinophils/100 leukocytes in Blood by Automated count 0 % [facility] Basophils/100 leukocytes in Blood by Automated count 0 % [facility] Neutrophils [#/volume] in Blood by Automated count 1.66 10*3/uL 1.8-7 .0 L [facility] Lymphocytes [#/volume] in Blood by Automated count 1.13 10*3/uL 1.2-4 .0 L [facility] Monocytes [#/volume] in Blood by Automated count 0.34 10*3/uL 0-0.8 [facility] Eosinophils [#/volume] in Blood by Automated count 0.01 10*3/uL 0-0.5 [facility] Basophils [#/volume] in Blood by Automated count 0.00 10*3/uL 0-0.2 [facility] Nucleated erythrocytes/100 leukocytes [Ratio] in Blood by Automated count 0 /100{WBCs} 0-0 [facility] ID Date Data Source [id number] 01/13/2021 10:50:24 AM [facility] Name Value Range Interpretation Code Description Data Deepa rce(s) Supporting Document(s) ABO and Rh group [Type] in Blood [facility] Blood group antibody screen [Presence] in Serum or Plasma [facility] Blood bank comment [facility] ID Date Data Source [id number] 01/12/2021 04:10:06 AM T [facility] Performed at [facility], Ted chung St[place], MITCHELL NAVARROISS IN ADULT ED AT [id number] Name Value Range Interpretation Code Description Data Deepa rce(s) Supporting Document(s) ID Date Data Source [id number] 01/10/2021 11:54:27 AM EDT [facility] Name Value Range Interpretation Code Description Data Deepa rce(s) Supporting Document(s) Leukocytes [#/volume] in Blood by Automated count 3.8 10*3/uL 4-10 L [facility] Erythrocytes [#/volume] in Blood by Automated count 2.50 10*6/uL 4.1- 5.3 L [facility] Hemoglobin [Mass/volume] in Blood 8.2 g/dL 11.5-15.5 L [facility] Hematocrit [Volume Fraction] of Blood by Automated count 23.0 % 3 6-45 L [facility] Erythrocyte mean corpuscular volume [Entitic volume] by Auto mated count 92.2 fL 80-96 [facility] Erythrocyte mean corpuscular hemoglobin [Entitic mass] by Automated count 32.9 pg 27-33 [facility] Erythrocyte mean corpuscular hemoglobin concentration [Mass/volume] by Automated count 35.7 g/dL 32.0-36.0 [facility] width [Ratio] by Automated count 15.8 % 11.5-14.5 H [facility] Platelets [#/volume] in Blood by Automated count 12 10*3/uL 150-400 [facility] Called to and read back by Aliyah Goff RN in EMR at 1159 by 1399 Differential cell count method - Blood [facility] Neutrophils/100 leukocytes in Blood by Automated count 55 % [facility] Lymphocytes/100 leukocytes in Blood by Automated count 37 % [facility] Monocytes/100 leukocytes in Blood by Automated count 8 % [facility] Eosinophils/100 leukocytes in Blood by Automated count 0 % [facility] Basophils/100 leukocytes in Blood by Automated count 0 % [facility] Neutrophils [#/volume] in Blood by Automated count 2.08 10*3/uL 1.8-7 .0 [facility] Lymphocytes [#/volume] in Blood by Automated count 1.41 10*3/uL 1.2-4 .0 [facility] Monocytes [#/volume] in Blood by Automated count 0.30 10*3/uL 0-0.8 [facility] Eosinophils [#/volume] in Blood by Automated count 0.01 10*3/uL 0-0.5 [facility] Basophils [#/volume] in Blood by Automated count 0.01 10*3/uL 0-0.2 [facility] Nucleated erythrocytes/100 leukocytes [Ratio] in Blood by Automated count 0 /100{WBCs} 0-0 [facility] ID Date Data Source [id number] 01/10/2021 12:03:51 PM EDT [facility] Name Value Range Interpretation Code Description Data Deepa rce(s) Supporting Document(s) Bicarbonate [Moles/volume] in Serum 26 mmol/L 22-29 [facility] Chloride [Moles/volume] in Serum or Plasma 102 mmol/L 98-107 [facility] Creatinine [Mass/volume] in Serum or Plasma 0.52 mg/dL 0.50-0.90 [facility] Glucose [Mass/volume] in Serum or Plasma 98 mg/dL 70-140 [facility] Potassium [Moles/volume] in Serum or Plasma 3.7 mmol/L 3.4-5.1 [facility] Sodium [Moles/volume] in Serum or Plasma 137 mmol/L 136-145 [facility] Urea nitrogen [Mass/volume] in Serum or Plasma 14 mg/dL 8-23 [facility] Anion gap 3 in Serum or Plasma 9 mmol/L 8-15 [facility] Osmolality of Serum or Plasma by calculation 284 mosm/kg 275-300 [facility] Creatinine/Urea nitrogen [Mass Ratio] in Serum or Plasma 28 [facility] Calcium [Mass/volume] in Serum or Plasma 10.3 mg/dL 8.8-10.2 H [facility] Glomerular filtration rate/1.73 sq M pre dicted among non-blacks [Volume Rate/Area] in Serum or Plasma by Creatinine-based formula (MDRD) >6 0 [facility] Glomerular filtration rate/1.73 sq M pre dicted among blacks [Volume Rate/Area] in Serum or Plasma by Creatinine-based formula (MDRD) >60 [facility] ID Date Data Source [id number] 01/10/2021 07:03:27 AM [facility] Performed at [facility], Stacia Oseguera NYKIM DERX ADULT CC AT 1317 BY [id number] 1 UNIT IS TO BE ISSUED PER DR AMANDA ALMONTE 1322 Name Value Range Interpretation Code Description Data Deepa rce(s) Supporting Document(s) ID Date Data Source [id number] 01/08/2021 12:17:28 PM EDT [facility] Name Value Range Interpretation Code Description Data Deepa rce(s) Supporting Document(s) ABO and Rh group [Type] in Blood [facility] Blood group antibody screen [Presence] in Serum or Plasma [facility] Blood bank comment [facility] ID Date Data Source [id number] 01/08/2021 12:05:03 PM EDT [facility] Name Value Range Interpretation Code Description Data Deepa rce(s) Supporting Document(s) ABO and Rh group [Type] in Blood [facility] Blood bank comment [facility] ID Date Data Source [id number] 01/08/2021 10:57:20 AM EDT [facility] Name Value Range Interpretation Code Description Data Deepa rce(s) Supporting Document(s) Leukocytes [#/volume] in Blood by Automated count 5.3 10*3/uL 4-10 [facility] Erythrocytes [#/volume] in Blood by Automated count 2.67 10*6/uL 4.1- 5.3 L [facility] Hemoglobin [Mass/volume] in Blood 8.6 g/dL 11.5-15.5 [facility] Hematocrit [Volume Fraction] of Blood by Automated count 24.6 % 3 6-45 L [facility] Erythrocyte mean corpuscular volume [Entitic volume] by Auto mated count 92.4 fL 80-96 [facility] Erythrocyte mean corpuscular hemoglobin [Entitic mass] by Automated count 32.2 pg 27-33 [facility] Erythrocyte mean corpuscular hemoglobin concentration [Mass/volume] by Automated count 34.8 g/dL 32.0-36.0 [facility] distribution width [Ratio] by Automated count 15.7 % 11.5-14.5 H [facility] Platelets [#/volume] in Blood by Automated count 7 10*3/uL 150-400 [facility] Called to and read back by Nano Hunter at 1045 by 6755 Differential cell count method - Blood [facility] Neutrophils/100 leukocytes in Blood by Automated count 65 % [facility] Lymphocytes/100 leukocytes in Blood by Automated count 28 % [facility] Monocytes/100 leukocytes in Blood by Automated count 7 % [facility] Eosinophils/100 leukocytes in Blood by Automated count 0 % [facility] Basophils/100 leukocytes in Blood by Automated count 0 % [facility] Neutrophils [#/volume] in Blood by Automated count 3.43 10*3/uL 1.8-7 .0 [facility] Lymphocytes [#/volume] in Blood by Automated count 1.46 10*3/uL 1.2-4 .0 [facility] Monocytes [#/volume] in Blood by Automated count 0.38 10*3/uL 0-0.8 [facility] Eosinophils [#/volume] in Blood by Automated count 0.02 10*3/uL 0-0.5 [facility] Basophils [#/volume] in Blood by Automated count 0.01 10*3/uL 0-0.2 [facility] Nucleated erythrocytes/100 leukocytes [Ratio] in Blood by Automated count 0 /100{WBCs} 0-0 [facility] ID Date Data Source [id number] 01/04/2021 02:46:21 PM EDT [facility] Name Value Range Interpretation Code Description Data Deepa rce(s) Supporting Document(s) Progress Note [facility] EOIXXr9lHrGPTaLe00/URBcsIMBce2ImYEuyTMe5YFyaZKByI9OrLFP4iK3dWSQ2OSkDMpWfHhYxMAEe lbm [file] [id number]+[id number]/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 [file] [id number]= ID Date Data Source [id number] 01/04/2021 02:46:16 PM EDT [facility] Name Value Range Interpretation Code Description Data Deepa rce(s) Supporting Document(s) Progress Note [facility] BGYWRs8fOhTFWvSl18/EKHctZDLnk5DpVYvhDYh1ZQdsVMEsU0ZxIFZ4yH3sETA7XRlCXrAbAsGsIQSz lbm [file] [id number]zQxSD7WCJz= ID Date Data Source [id number] 01/01/2021 11:03:38 AM EDT [facility] Name Value Range Interpretation Code Description Data Deepa rce(s) Supporting Document(s) Leukocytes [#/volume] in Blood by Automated count 1.8 10*3/uL 4-10 [facility] Called to and read back by CYNDIE CENTENO RN. AT SURESH AT 1040 JRM Erythrocytes [#/volume] in Blood by Automated count 3.44 10*6/uL 4.1- 5.3 L [facility] Hemoglobin [Mass/volume] in Blood 10.8 g/dL 11.5-15.5 [facility] Hematocrit [Volume Fraction] of Blood by Automated count 31.9 % 3 6-45 L [facility] Erythrocyte mean corpuscular volume [Entitic volume] by Auto mated count 92.6 fL 80-96 [facility] Erythrocyte mean corpuscular hemoglobin [Entitic mass] by Automated count 31.3 pg 27-33 [facility] Erythrocyte mean corpuscular hemoglobin concentration [Mass/volume] by Automated count 33.8 g/dL 32.0-36.0 [facility] width [Ratio] by Automated count 16.3 % 11.5-14.5 H [facility] Platelets [#/volume] in Blood by Automated count 40 10*3/uL 150-400 L [facility] Differential cell count method - Blood [facility] Neutrophils/100 leukocytes in Blood by Automated count 27 % [facility] Lymphocytes/100 leukocytes in Blood by Automated count 60 % [facility] Monocytes/100 leukocytes in Blood by Automated count 12 % [facility] Basophils/100 leukocytes in Blood by Automated count 1 % [facility] Neutrophils [#/volume] in Blood by Automated count 0.49 10*3/uL 1.8-7 .0 L [facility] Lymphocytes [#/volume] in Blood by Automated count 1.08 10*3/uL 1.2-4 .0 L [facility] Monocytes [#/volume] in Blood by Automated count 0.22 10*3/uL 0-0.8 [facility] Basophils [#/volume] in Blood by Automated count 0.02 10*3/uL 0-0.2 [facility] ID Date Data Source [id number] 12/27/2020 07:19:49 PM EDT [facility] Name Value Range Interpretation Code Description Data Deepa rce(s) Supporting Document(s) Progress Note [facility] GYWTKc4wPmOLVeFj44/YZShdSRQfe6ApQLgvUIp3XCaaEHUsK2PdEOA2fL2uZVA3AZuSIhXoSoYkJNZv lbm KwLjgABwJmJNDjYveDQjMdHPitAcokcTQrRW3LmBH1FXVnK07aOIMiQCVyF4HiIIUbPis+Xv5NMRUzaY FjZE0QSpeU8ZlqzmzXTV+ZlI6iPuHjEckE7N2zMBsoeO3S08D3FjTYq9vcJIuH1TCz+xhPG7h281Es1W wlFkQjOsf3Vi03xn7HGD/1FhV868Bhwp+pizTELS1U 6gGSpXoboHsn4x/DDrmxmLFmisBOO3j+euCgK/wLYXKkH21qsUEwPb2PD1XnrO1v4sUdArjFaheFj+BARAK DR8qYxlB42VseuviU87D64mg0QZr2bKeQw+YK1JsVE2DMnJT6kpu2MDnQiVISUGpp3cCzz7QGK+Gtq9c 0fRLFb0lPJPAIwGw87BaXdyi3Fc1UISFZkNoRTaUiA m3c9CPFth4qHHcaPE8OnkLf7w1vKjFjfRu1x4bfwSaq7PmtkXfMNFwEAFz+UhyN/Yj3LvXLUCCnICn0A SrFTSU/EwGcqcwBAPijOF4Tj6Jo3yItYjgXN/Jeannette+t2yHL0NmM6EZ2TT2O3wgcGowqZrypANl+OZ7th0e [file] AgICAgICAgICAgICAgICAgICAgICAgICAgICAgICAg ICAgICAgICAgICAgICAgICAgICAgICAgICAgDQogICAgICAgICAgICAgICAgICAgICAgICAgICAgICAg ICAgICAgICAgICAgICAgICAgICAgICAgICAgICAgICAgICAgICAgICAgICAgICAgICAgICAgICAgICAg ICAgICAgICAgDQogICAgICAgICAgICAgICAgICAgIC AgICAgICAgICAgICAgICAgICAgICAgICAgICAgICAgICAgICAgICAgICAgICAgICAgICAgICAgICAgIC AgICAgICAgICAgICAgICAgICAgDQogICAgICAgICAgICAgICAgICAgICAgICAgICAgICAgICAgICAgIC AgICAgICAgICAgICAgICAgICAgICAgICAgICAgICAg ICAgICAgICAgICAgICAgICAgICAgICAgICAgICAgDQogICAgICAgICAgICAgICAgICAgICAgICAgICAg ICAgICAgICAgICAgICAgICAgICAgICAgICAgICAgICAgICAgICAgICAgICAgICAgICAgICAgICAgICAg ICAgICAgICAgICAgDQogICAgICAgICAgICAgICAgIC AgICAgICAgICAgICAgICAgICAgICAgICAgICAgICAgICAgICAgICAgICAgICAgICAgICAgICAgICAgIC AgICAgICAgICAgICAgICAgICAgICAgDQogICAgICAgICAgICAgICAgICAgICAgICAgICAgICAgICAgIC AgICAgICAgICAgICAgICAgICAgICAgICAgICAgICAg ICAgICAgICAgICAgICAgICAgICAgICAgICAgICAgICAgDQogICAgICAgICAgICAgICAgICAgICAgICAg ICAgICAgICAgICAgICAgICAgICAgICAgICAgICAgICAgICAgICAgICAgICAgICAgICAgICAgICAgICAg ICAgICAgICAgICAgICAgDQogICAgICAgICAgICAgIC AgICAgICAgICAgICAgICAgICAgICAgICAgICAgICAgICAgICAgICAgICAgICAgICAgICAgICAgICAgIC AgICAgICAgICAgICAgICAgICAgICAgICAgDQogICAgICAgICAgICAgICAgICAgICAgICAgICAgICAgIC AgICAgICAgICAgICAgICAgICAgICAgICAgICAgICAg WHAaVISfFVVaWOLyQCThLMKcUZKhKXAvPLChOOSwFZZmKEBpQZt0U5qwMEYgUSEiWO2wBNb0Fz8+DQoN IyLyHNU2xbEzpP3UJP5iv6OqCWkuJBIbn6RhTKa0HN3RRDLmZWqsMH0WPOimnr1GWROdAUBaqAIRh5yl PeTeTSZ3CLPmXvmcIB9INNMhG7byuvZqGLZiFQAIZN 9VLlSlK1CnrE82ROCXXi8+QDzchkYsWdqYWsX7HZWcw3SsBCd0XZ1XGNMiSutjf6ElYiHiMNUFPBwnQZ 0JYQS9CACiXSOiLr5UYCDeE705qmWcAE6IJe7GBtYyQA2mys7LLdRiUHHwIysAUnp1WXdtIN4KqCZnEL qFgr4ekyXdjrFEc6AlqiNonLOUeIC5nQ5oIzMPz6Wr ofrwXk5jVGYzAD2qNA5hJEVlBXCrEnK1PBUPCH4UCIMxLSMbjKVqRITjLIHFFL0JCBayCZR4HICrgeJb cPAjXOcyDM2LILGodnZpKXbhAWGBLDc+Ho2QUP9bd5EkQSdxVLWpUA4abu9CRAwEOkAzY7U7hYIpF2I5 NRwuHm5UVJNiEISrWDbkOPVBCMnfIU6MJL7gkeI0YU 1RnMKcJNAqHFKzhWRgPJc1G67rySTdPZtcBZ7SPKX+Justina+Ou6YQYNrBFFeASNcYcTsBXSIPzUvD1TsG9 XLy1RuN2UlNO79nBskjgEyZXpqNC5RAH0fPDUqMNXEMY7NnFKzfQ7rlwDeMIQfCOGTIxHkN69blIPcAK XiCHT2WSRrUg2LYSAaP2OtesXuzDngyzJfXLHpRINX FQ1YHEfydnNjgQQqxVcsCS00bVdqYE1RKr7LBbRmDV3klm2HwKXjPz2NBPGmKt7RNLKzNVDxVYAnCFL2 JGRuQsXpDAbnFQGrIMLzYZZ5GBLhLJPsWK7UHrXcDVXtGUx5FAYnNJZwVGPbqn0SVVQxSTFgVUW0NYVz KNZqKNSgZIpcOPMdOHDgLLS0MXEpHRKeZV7YLdCeIW GhJCLlGetnTBKtLTJbyl4LGRRyRNSuFjV7SEYvWCOjMJQwDUurITCaRNZrOPJuPPNdEMBfPM6LPzKyLL KkVBG6LfWcWIXaPLEphj2ZYZIqJGTdRzdoYbVsAPPyYJLmFQiuHRAgSVD5Cuv2KZMxGDHkDR6SAlBfAX BeERC2ReLpQXWlXJBftt3WIBAvSSWtEKM6HpPgSPEc THTyPDrbQZXtBHX1FBX6WNQkXDWqXO2MSrJnVDNzVAZ6HkOwRFKiBDXtrn0PVVEsMFApVbT5LlEbNRAw UQTsYIaoLWXlWHG6ReraKSPsBSYjYD7JClRbCNChQLz7JlhiDVTqKBFueh5SNQQlUSVmHfqsUZOzESQz TTByOVitKFWhBYI3MpH2MFUdCGUhHU5XEeMyVPOoTW usFmybBKWtXDCqmt0QXOTqLGBgDRK2MbOoGNOtFSBzFKu6knAajEZbCMg8NF9PZ7LyxwEzSmZEHl1Rh1 59DDVeJNLfWp0QC9ejJw8fVSDsFUHOPv9PUKl8URAxPGI2GpQrVbj7PJXoYyL4ECZ3NPJvQIG0YqUdZW E+BCfgHqXzKdp1JfHkIGpdOHT1NargYFBpJ4EaXMdz TNC9IC0sKRXYHt9+OWymuTZygQitJWOOZjX8XsSnOBwiWHWMIp4H ID Date Data Source [id number] 12/27/2020 07:19:44 PM EDT [facility] Name Value Range Interpretation Code Description Data Deepa rce(s) Supporting Document(s) Progress Note [facility] QXBPMb7dVtOWVmFz07/BDSjaBBKmy2YrPQtxTMk1NSfhXBOrE2QbEUA3iN8hQDP8XJwSGvJsUlClRYFe lbm [file] XUYIrX082Qa0a/YSanDkYuMeSmZZYEoozK6Safqo4TWNQaaSt49UBUYJaBOR61fAUctcKocKQVfH+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 [file] PBC0UIc+WM3pCSb+Hp5Rn6PopuV4oqKwQAflXNL6MF7PUJVON5WFSx== ID Date Data Source [id number] 12/27/2020 07:07:48 PM EDT [facility] Name Value Range Interpretation Code Description Data Deepa rce(s) Supporting Document(s) Progress Note [facility] IQBROe5dWaIMJcAv90/VPUsrRDLij1RvXLiqWQa4BRwaJEUnL9YsAAK8kA9hVJV8IXxWWqBcJrJzCRVd lbm [file] GaC1BgbQXzSbYP2FXHh= ID Date Data Source [id number] 12/27/2020 07:07:43 PM EDT [facility] Name Value Range Interpretation Code Description Data Deepa rce(s) Supporting Document(s) Progress Note [facility] NGOMOa0iMwVHOmHl32/MONcaNKPnb5DpTXikJAo6ENwvNCWxG5GvFAO6sO2bSLP8FLrHQiWjRfNaNALo lbm [file] AgICAgICAgICAgICAgICAgICAgICAgICAgICAgICAg ICAgICAgICAgICAgICAgDQogICAgICAgICAgICAgICAgICAgICAgICAgICAgICAgICAgICAgICAgICAg ICAgICAgICAgICAgICAgICAgICAgICAgICAgICAgICAgICAgICAgICAgICAgICAgICAgICAgICAgDQog ICAgICAgICAgICAgICAgICAgICAgICAgICAgICAgIC AgICAgICAgICAgICAgICAgICAgICAgICAgICAgICAgICAgICAgICAgICAgICAgICAgICAgICAgICAgIC AgICAgICAgDQogICAgICAgICAgICAgICAgICAgICAgICAgICAgICAgICAgICAgICAgICAgICAgICAgIC AgICAgICAgICAgICAgICAgICAgICAgICAgICAgICAg ICAgICAgICAgICAgICAgICAgDQogICAgICAgICAgICAgICAgICAgICAgICAgICAgICAgICAgICAgICAg ICAgICAgICAgICAgICAgICAgICAgICAgICAgICAgICAgICAgICAgICAgICAgICAgICAgICAgICAgICAg DQogICAgICAgICAgICAgICAgICAgICAgICAgICAgIC AgICAgICAgICAgICAgICAgICAgICAgICAgICAgICAgICAgICAgICAgICAgICAgICAgICAgICAgICAgIC AgICAgICAgICAgDQogICAgICAgICAgICAgICAgICAgICAgICAgICAgICAgICAgICAgICAgICAgICAgIC AgICAgICAgICAgICAgICAgICAgICAgICAgICAgICAg ICAgICAgICAgICAgICAgICAgICAgDQogICAgICAgICAgICAgICAgICAgICAgICAgICAgICAgICAgICAg ICAgICAgICAgICAgICAgICAgICAgICAgICAgICAgICAgICAgICAgICAgICAgICAgICAgICAgICAgICAg ICAgDQogICAgICAgICAgICAgICAgICAgICAgICAgIC AgICAgICAgICAgICAgICAgICAgICAgICAgICAgICAgICAgICAgICAgICAgICAgICAgICAgICAgICAgIC AgICAgICAgICAgICAgDQogICAgICAgICAgICAgICAgICAgICAgICAgICAgICAgICAgICAgICAgICAgIC AgICAgICAgICAgICAgICAgICAgICAgICAgICAgICAg VOTuAAEoMALbZPXsGIJjUIZyQLDhUSUnFRv5V7igBNJlYESaON2kNXh7Cs0+NCmAGkCxAMW1rcCcmF7F CI3wd8CwWKbfWVScs2OaEKp2UB8SFYWrYOfqCT8PVCacpx1XDFFeADLqqDMAm2jrWaReIID6SUFyChxq HP7LCKLwD3lzjhBoHJOgNZGPDTjmEYHHGZkvUBWRPK XbZRFaPuHkApAxBDAtRBIzJAJPCN6FJyNfX0NxbB78ZRKYSc2+OCorwtRvNuqPHcOoAQAzs3YaJYx8DP 6WJZAdEbtjt2OxWmDqNRJJCLegQR1ONZP1KSZjOEZyKw7VGJIjA417obTnGC2VLq3FDuIjGC5eqw3SEp XoBKNnVlhXTgf3ZTywPH1ZbNNpHZkNnf5idvVsxfRR k7WssiWgbKGJVTPvFOUPPZAjijWuVNvmDlSxYJDiLo4tNI0wKWTrJEZ3QgH4PWLOLJ1EAARlOVKxhXVj KFUcLZQKDG6VVXexOEV5CKOsdrIayOMiCBxmCR4NNXHticFeLhGjXMWBJBd+Ro0WKZ6ax1FgNKzaSEIr CD2lhz2QUQmTBuInM6P6uTGyC8O9IGapKa6JTAVoPW HfRuEpSFATEWouDL0SBQ1imaU7QH4DdVLqOVPxTAUynQEsSUt7O63brYQzRRtoJB2NGQC+Justina+Pg0KIC EgKGDkLGMrOmJqLMPKCxHzH6DiR7AVi9PaY5WmBD80iDrfvoArRUaaET6MCS2sAZNkDXRSJP5HuMLxqO 6atjGdQyJbHNPIAnCaZ52gbXHcXPQmAPHkEGEoKn5P LAIqF3XoqpOlkYxfycPtSKPeUDFUUL5HTSerwqAvoQLdkCazMT95vTjhPU8PSp8WBaJbUI4kcb8ItQSr Vk4UGNJnKB1JOCKcNXJwHPRbXSV6WRLsKsWeBEtgYXDhLQDuABB6BXQcVWKrHP2VDfLsQIUeTww5HkDf IGOhGEMjrc8RXOWhVCEcAZU7RKWxCJJrVCAwEOrtJY JsTQAiXRG4OGKiOLTlPN0AZsXjXKXsIHVfOKqdHQIfPPFirf2AECQwMORxTIO6BuZnVKLhONLrMHphVX DlLSN1TMM3XLSfKNNhVX5UVuKiMSHpCHzkRGTsZVLmXUMltr0WZMEyBSVsHBrsRJYgORDcZPPnLAcsZK IfQTGqHHB8VOPjRKJqQE4JApHjHZWsKARmMbPhZXRa TSWegl1AMYOvYRUqEAE6NKNvDZIbBOSvKSybORLoPCR2OUm1QOYqFTOnOR6DDiWiHDFtGYfmTQLmGVVu ASFjkr0GCUFdPBBkCBBxMbVdLSNqNJHiYOylUAPlNPGfVyFtHGJdTLBdZI1TFqEnYVQqBmLdZBEfLOXy ZTHfeb1XUPYqXENlEiP8XAQuIYGlPDEyGDooKXRaIR NcNilpEDCoEXAzIZ4FYdCnQEClIrH4YIAvBIQmYQKteo0XVLNyGLYsRug1NrKxYBFlHHSaUDrbLJLzGG W8MNHzFHMnIQFtGG5TMmXqFMSjNqC3PrYgWZGzGBJvek1HRRUvCAYgGDr2KlWePHHaYJJvLZvqQKIvQC P9BTu8JLMnVMSqVD9JHpMrEXGaKkLmZIKtCROuDZYw dc2PJDVyNAIgCcT3APFrSNLpSLNwNQnfDDIxFLU4KjR8XYJfUNKxAN8ELmMeSVTuXxh9TjJiLAQaJMKz lx1UONSsFSGsNvquYDVyMSOpFMEwPLkxRDYuTCF4IIQ2GSCwMOCiTC4BFyWhEDWaGtc3LCrnFJLeHOIe ci5DSCDaDGHgXSH1HIQzMKQeNOPcYEacWTUuHPZ7YU W8NECxNPOhHB7CPoLtTWxiYBVKUbs4WNizY1q2HIDrPG8WN3Gzu1IpKpDfPWSWBGtaEW0usnLtJETwBe 6NW4iLOckeSaRkW2ShARtrOFJdALLlNWOrQVhaHZfkDjJcMXCgKI1mQMAbQqH1Z7T7EFP9I5EeJyUnAv YfH7MwYMJmQjQyQMEcTqHhHX4MFs7QMkB3IBR9bUFvWf2XJNMyVSKQKvOdXB5ZSRj= ID Date Data Source [id number] 12/25/2020 11:15:12 AM EDT [facility] Name Value Range Interpretation Code Description Data Deepa rce(s) Supporting Document(s) Leukocytes [#/volume] in Blood by Automated count 3.3 10*3/uL 4-10 L [facility] Erythrocytes [#/volume] in Blood by Automated count 3.35 10*6/uL 4.1- 5.3 L [facility] Hemoglobin [Mass/volume] in Blood 10.8 g/dL 11.5-15.5 [facility] Hematocrit [Volume Fraction] of Blood by Automated count 31.8 % 3 6-45 L [facility] Erythrocyte mean corpuscular volume [Entitic volume] by Auto mated count 94.9 fL 80-96 [facility] Erythrocyte mean corpuscular hemoglobin [Entitic mass] by Automated count 32.2 pg 27-33 [facility] Erythrocyte mean corpuscular hemoglobin concentration [Mass/volume] by Automated count 33.9 g/dL 32.0-36.0 [facility] Erythrocyte distribution width [Ratio] by Automated count 17.5 % 11.5-14.5 H [facility] Platelets [#/volume] in Blood by Automated count 168 10*3/uL 150-400 [facility] Differential cell count method - Blood [facility] Neutrophils/100 leukocytes in Blood by Automated count 40 % [facility] Lymphocytes/100 leukocytes in Blood by Automated count 45 % [facility] Monocytes/100 leukocytes in Blood by Automated count 14 % [facility] Eosinophils/100 leukocytes in Blood by Automated count 1 % [facility] Basophils/100 leukocytes in Blood by Automated count 0 % [facility] Neutrophils [#/volume] in Blood by Automated count 1.30 10*3/uL 1.8-7 .0 L [facility] Lymphocytes [#/volume] in Blood by Automated count 1.45 10*3/uL 1.2-4 .0 [facility] Monocytes [#/volume] in Blood by Automated count 0.46 10*3/uL 0-0.8 [facility] Eosinophils [#/volume] in Blood by Automated count 0.04 10*3/uL 0-0.5 [facility] Basophils [#/volume] in Blood by Automated count 0.01 10*3/uL 0-0.2 [facility] Nucleated erythrocytes/100 leukocytes [Ratio] in Blood by Automated count 0 /100{WBCs} 0-0 [facility] ID Date Data Source [id number] 12/25/2020 11:45:52 AM EDT [facility] Name Value Range Interpretation Code Description Data Deepa rce(s) Supporting Document(s) Albumin [Mass/volume] in Serum or Plasma by Bromocresol green (BCG) dye binding method 4.2 g/dL 3.5-5.2 [facility] Bilirubin.total [Mass/volume] in Serum or Plasma 0.3 mg/dL <1.2 [facility] Calcium [Mass/volume] in Serum or Plasma 11.4 mg/dL 8.8-10.2 H [facility] Chloride [Moles/volume] in Serum or Plasma 102 mmol/L 98-107 [facility] Creatinine [Mass/volume] in Serum or Plasma 0.61 mg/dL 0.50-0.90 [facility] Glucose [Mass/volume] in Serum or Plasma 103 mg/dL 70-140 [facility] Alkaline phosphatase [Enzymatic activity/volume] in Serum or Plasma 72 U/L 35-104 [facility] Potassium [Moles/volume] in Serum or Plasma 3.7 mmol/L 3.4-5.1 [facility] Protein [Mass/volume] in Serum or Plasma 7.2 g/dL 6.4-8.3 [facility] Sodium [Moles/volume] in Serum or Plasma 137 mmol/L 136-145 [facility] Aspartate aminotransferase [Enzymatic activity/volume] in Serum or Plasma 16 U/L <32 [facility] Urea nitrogen [Mass/volume] in Serum or Plasma 18 mg/dL 8-23 [facility] Osmolality of Serum or Plasma by calculation 286 mosm/kg 275-300 [facility] Creatinine/Urea nitrogen [Mass Ratio] in Serum or Plasma 30 [facility] Bicarbonate [Moles/volume] in Serum 26 mmol/L 22-29 [facility] Alanine aminotransferase [Enzymatic activity/volume] in Seru m or Plasma 15 U/L <33 [facility] Anion gap 3 in Serum or Plasma 9 mmol/L 8-15 [facility] Glomerular filtration rate/1.73 sq M pre dicted among non-blacks [Volume Rate/Area] in Serum or Plasma by Creatinine-based formula (MDRD) >6 0 [facility] Glomerular filtration rate/1.73 sq M pre dicted among blacks [Volume Rate/Area] in Serum or Plasma by Creatinine-based formula (MDRD) >60 [facility] ID Date Data Source [id number] 12/25/2020 05:11:41 PM EDT [facility] Name Value Range Interpretation Code Description Data Deepa rce(s) Supporting Document(s) Cancer Ag 125 [Units/volume] in Serum or Plasma 24 U/mL <38 [facility] The CA 125 assay should not be used as a screening test to detect Cancer. Its use as an aid in the management of Ovarian Cancer has been reported. CA125 values obtained using different methodologies cannot be used interchangeably. This method is manufactured by [employer] and is an electrochemiluminesence immunoassay. ID Date Data Source [id number] 12/24/2020 11:09:20 AM EDT [facility] Name Value Range Interpretation Code Description Data Deepa rce(s) Supporting Document(s) Progress Note [facility] KJIVQu1tNeJUThWj67/TCFjfXRCuw3NjEDsbJNl1XVqxHRUgP9TiIIE9vA2gWUM0MFjCRuRbQlNyMUL3 lbm [file] AgICAgICAgICAgICAgICAgICAgICAgICAgICAgICAgICAgICAgICAgICAgICAgICAgICAgICANCiAgIC AgICAgICAgICAgICAgICAgICAgICAgICAgICAgICAg ICAgICAgICAgICAgICAgICAgICAgICAgICAgICAgICAgICAgICAgICAgICAgICAgICAgICAgICAgICAg ICAgICANCiAgICAgICAgICAgICAgICAgICAgICAgICAgICAgICAgICAgICAgICAgICAgICAgICAgICAg ICAgICAgICAgICAgICAgICAgICAgICAgICAgICAgIC AgICAgICAgICAgICAgICANCiAgICAgICAgICAgICAgICAgICAgICAgICAgICAgICAgICAgICAgICAgIC AgICAgICAgICAgICAgICAgICAgICAgICAgICAgICAgICAgICAgICAgICAgICAgICAgICAgICAgICANCi AgICAgICAgICAgICAgICAgICAgICAgICAgICAgICAg ICAgICAgICAgICAgICAgICAgICAgICAgICAgICAgICAgICAgICAgICAgICAgICAgICAgICAgICAgICAg ICAgICAgICANCiAgICAgICAgICAgICAgICAgICAgICAgICAgICAgICAgICAgICAgICAgICAgICAgICAg ICAgICAgICAgICAgICAgICAgICAgICAgICAgICAgIC AgICAgICAgICAgICAgICAgICANCiAgICAgICAgICAgICAgICAgICAgICAgICAgICAgICAgICAgICAgIC AgICAgICAgICAgICAgICAgICAgICAgICAgICAgICAgICAgICAgICAgICAgICAgICAgICAgICAgICAgIC ANCiAgICAgICAgICAgICAgICAgICAgICAgICAgICAg ICAgICAgICAgICAgICAgICAgICAgICAgICAgICAgICAgICAgICAgICAgICAgICAgICAgICAgICAgICAg ICAgICAgICAgICANCiAgICAgICAgICAgICAgICAgICAgICAgICAgICAgICAgICAgICAgICAgICAgICAg ICAgICAgICAgICAgICAgICAgICAgICAgICAgICAgIC AgICAgICAgICAgICAgICAgICAgICANCiAgICAgICAgICAgICAgICAgICAgICAgICAgICAgICAgICAgIC AgICAgICAgICAgICAgICAgICAgICAgICAgICAgICAgICAgICAgICAgICAgICAgICAgICAgICAgICAgIC AgICANCjw/gIQeP1znkQOmydR4N1liCs5VXe7ZNS0v y1RhKHPiMXhwzmJzWypBUjLaAPQnMlsTWoj9YJmmFO0SqJByC5CiL3AgGYkeJQ1QURPeBCEioKKlBWLl TEEuVjT1FXDfRYfbWT9LeSPxILqfBHNaBRQvEvTpIBLxKQSdWRKaSALkCVATZXFiTETyNfJySESlJGHg CXgrJFHKHC8SPzGcE0ScyC28XDzFTu1+DQplbmRvYm jDDxL6BPDli2KtNGm1BK7PMJZvNyjuq4QrNhTxIHSURLjsBA7IXJI7ZGJ4EQWkUj5CSPKuG574ckMzET 7PHc2UElWbZB9toe8ZRhJvHQAlDhtREdn9EUmiST3OoQXcKEqKqu2rgcCxdzBDi0JzxdBvsEUDFAKvNS EASMSyxyUvIJdgXwJrCPFmSI6yCx8tMEOyYXEfJmKz ZLLATN6ATRObQONmmMFgVJNtAGHWMX9UQVbmERL3NFUfbmKenATaGQtoAK2CYQAphzDlVaPkHUSDCTn+ Zl0ARO2xw3HbUMhvEbCxMV8mmf0MWInOTaJtS8V1xKSoC8H0XNwbZs5ACNPrOZPzOvBvBSARLMhxPY7T AR9xquY9LX0NzQTbMFAxRFTgpQSiXZw5Y05ajFVrCN hpMO3PTRZ+Justina+Ze2FPNPpBPEgYYYwDnUxXUXVOyKsK0KdL4KXu3JrD8TpUX55yBxvjeAvNMmuJB3CWG 1sHWMvXXOJMG7KsKYxtT7qebKsSBWcEVNXDiAbV88dpAGxBPGjQFGvHQWpDb8CDLTtS8NdljYqnNpwzv WjDZSgORVSVL1IRSgxwwSmaBRysGfaSV21bFqyCH2W Xa8ERuPcWB9wnp6MpHGeZd4SEAZeSs0ONGRaAFBiALYfMJX2FXVkUjHrSGuoYHGkUMKgPEB8QAMdKIFs GG8WKuTrNGIfNqn5KEfoKJKaRDMtmu0OZBCbMIB0SOEoWQCcHVXiFZOxTMonYTCbZEXsOQJ3UISrQPMf KS5ZInLtYAXnFFToViLvLGXzFICrrf9JIUPeAXLkRE E9RfNyLGFeATPzQOntVEAxBYG8IvIvMECxDFGtND2KVxCmXSAnDBk1QXNwIGHhFJPcry6BMGNiMGXaNR HdIDWwDWUtSIVjDAxwZOZtGZVdSbYzPCSqIAVfFY5MZoSfKZZnEDM8PPidREFcKDWdio5ADXEuTRMhPS yyHjNrRHMaBKLfKWjzWGOkVLY9SRU3KXOpXNHiIP6C WlIeNXGdBDraIiIoABSnZQTixd8CGJNxZNWfQTL5GuFeLTMgDUCvGKhaYPIpPPFzEPBnRBRkPVEyHC3A CrVfLGCeVxJ8NCGvHWCzYWTnvb7LKPZmEMJtPkBdHAQkFEWkHFEnYLasTDQrXDN2ZNX3NCFaKFLyII5U IdWcHIUlGzSzYiCrIVTdRGIujo5JOMLyXGWwYHJ7RR BvDIXwGTEkLOqhLRMvCAR7VAS3EDNzQLDlWJ5VWpGoIATrQnM8PGvzZGDbOQTecg0ZIEViDNOhKBu4Ju VlMXIkWOYzUEjoOBFwCOI0NaX5BPUjPLEiPN0CGfTwZHJxOdk7MGEuTUOtSPTski2EEBUzTXVeTgy9FZ MtRJZaZTNnDKsuZPWbUNH9INLeTFUeTOXaKM4SVjZs JJFbBqigYMvzWVUaXFEget2DYGUaBDXfOAXwRCLcXANvTAVyPPmoASCdHPB8Zqs3XOKwYONlRG1OQrWo HBPeDgm4SwliCFGfZKRqmz1WQCCnKSSpZNb4SCOvYNHnDVGdPTrvQFMxLMUaDrGyPWLvWICwHN7GEfKq ZXCoZVY0OhZaOKMjUZMbcm1DCYZhCKG0SNJ8IzUqIJ KrAWAnRGs5dmQadUOaASy1SC0KP2TknoSwRkfGQx0Ky702AEL4SEOjZs5PE3bzGe9xFTGdZSPIYm5HUW s6LEsbGGKdNLTtSNTnGma7DBW3UTGkLFB9J6UpSXKpAmi+NRg9IMW5GuN4MqB8CyK0NBmwTpU0OrTiYE viHbSuRDKqYk7iHABBCk0+FJzitUOuwAfrBFQZGqIjBGS0EYivHLATHw4E ID Date Data Source [id number] 12/18/2020 10:42:30 AM EDT [facility] Name Value Range Interpretation Code Description Data Deepa rce(s) Supporting Document(s) Leukocytes [#/volume] in Blood by Automated count 2.5 10*3/uL 4-10 L [facility] Erythrocytes [#/volume] in Blood by Automated count 2.96 10*6/uL 4.1- 5.3 L [facility] Hemoglobin [Mass/volume] in Blood 9.5 g/dL 11.5-15.5 [facility] Hematocrit [Volume Fraction] of Blood by Automated count 27.7 % 3 6-45 L [facility] Erythrocyte mean corpuscular volume [Entitic volume] by Auto mated count 93.8 fL 80-96 [facility] Erythrocyte mean corpuscular hemoglobin [Entitic mass] by Automated count 32.1 pg 27-33 [facility] Erythrocyte mean corpuscular hemoglobin concentration [Mass/volume] by Automated count 34.2 g/dL [facility].0-[facility] width [Ratio] by Automated count 14.5 % 11.5-14.5 [facility] Platelets [#/volume] in Blood by Automated count 65 10*3/uL 150-400 L [facility] Differential cell count method - Blood [facility] Neutrophils/100 leukocytes in Blood by Automated count 36 % [facility] Lymphocytes/100 leukocytes in Blood by Automated count 51 % [facility] Monocytes/100 leukocytes in Blood by Automated count 12 % [facility] Eosinophils/100 leukocytes in Blood by Automated count 1 % [facility] Basophils/100 leukocytes in Blood by Automated count 0 % [facility] Neutrophils [#/volume] in Blood by Automated count 0.90 10*3/uL 1.8-7 .0 L [facility] Lymphocytes [#/volume] in Blood by Automated count 1.31 10*3/uL 1.2-4 .0 [facility] Monocytes [#/volume] in Blood by Automated count 0.31 10*3/uL 0-0.8 [facility] Eosinophils [#/volume] in Blood by Automated count 0.01 10*3/uL 0-0.5 [facility] Basophils [#/volume] in Blood by Automated count 0.00 10*3/uL 0-0.2 [facility] Nucleated erythrocytes/100 leukocytes [Ratio] in Blood by Automated count 0 /100{WBCs} 0-0 [facility] ID Date Data Source [id number] 12/18/2020 11:10:38 AM EDT [facility] Name Value Range Interpretation Code Description Data Deepa rce(s) Supporting Document(s) Albumin [Mass/volume] in Serum or Plasma by Bromocresol green (BCG) dye binding method 4.0 g/dL 3.5-5.2 [facility] Bil[facility].total [Mass/volume] in Serum or Plasma 0.4 mg/dL <1.2 [facility] Calcium [Mass/volume] in Serum or Plasma 10.8 mg/dL 8.8-10.2 H [facility] Chloride [Moles/volume] in Serum or Plasma 105 mmol/L 98-107 [facility] Creatinine [Mass/volume] in Serum or Plasma 0.61 mg/dL 0.50-0.90 [facility] Glucose [Mass/volume] in Serum or Plasma 101 mg/dL 70-140 [facility] Alkaline phosphatase [Enzymatic activity/volume] in Serum or Plasma 70 U/L 35-104 [facility] Potassium [Moles/volume] in Serum or Plasma 4.1 mmol/L 3.4-5.1 [facility] Protein [Mass/volume] in Serum or Plasma 7.0 g/dL 6.4-8.3 [facility] Sodium [Moles/volume] in Serum or Plasma 138 mmol/L 136-145 [facility] Aspartate aminotransferase [Enzymatic activity/volume] in Serum or Plasma 15 U/L <32 [facility] Urea nitrogen [Mass/volume] in Serum or Plasma 18 mg/dL 8-23 [facility] Osmolality of Serum or Plasma by calculation 288 mosm/kg 275-300 [facility] Creatinine/Urea nitrogen [Mass Ratio] in Serum or Plasma 30 [facility] Bicarbonate [Moles/volume] in Serum 25 mmol/L 22-29 [facility] Alanine aminotransferase [Enzymatic activity/volume] in Seru m or Plasma 17 U/L <33 [facility] Anion gap 3 in Serum or Plasma 8 mmol/L 8-15 [facility] Glomerular filtration rate/1.73 sq M pre dicted among non-blacks [Volume Rate/Area] in Serum or Plasma by Creatinine-based formula (MDRD) >6 0 [facility] Glomerular filtration rate/1.73 sq M pre dicted among blacks [Volume Rate/Area] in Serum or Plasma by Creatinine-based formula (MDRD) >60 [facility] ID Date Data Source [id number] 12/18/2020 12:56:25 PM EDT [facility] Name Value Range Interpretation Code Description Data Deepa rce(s) Supporting Document(s) Cancer Ag 125 [Units/volume] in Serum or Plasma 23 U/mL <38 [facility] The CA 125 assay should not be used as a screening test to detect Cancer. Its use as an aid in the management of Ovarian Cancer has been reported. CA125 values obtained using different methodologies cannot be used interchangeably. This method is manufactured by [employer] and is an electrochemiluminesence immunoassay. ID Date Data Source [id number] 12/10/2020 11:00:00 AM EDT [facility] Name Value Range Interpretation Code Description Data Deepa rce(s) Supporting Document(s) Follow Up [facility] TWDAOc8cWuHYWlPsOHYxWcpGJJslOKpkRPJbU7P0BBfaPf7RNYoasmGyASNwNa6+HOFnYN9zax9mVLTo y [file] Joyj3ZAlQkPuEmkdmXS/LdFnuimYaszogmpywuY+Fv YCCBSxxHjXtoMyQ48Q9ppSgvdfkNhveYinNzRWDziqnFsTdSdw+FhGHIvU8oFWbQesCIkTBofyJ33utm iBVzEuM3qczC6QlrQbZaObh621mmcl2achZJWm6i8+dEfBvFe2whRYAut4ttWyJye6b5yFRL6Q+rAJJm OsbiEF9u/wA+PtCQJR6pJePz71GbVwo/K1Xsp505Xc vmlb3EmoJqSrdtg4Q+O5XUmvrDVjvmb0ne73YmMztIiSa5Qq9WtjHh2pq88VfrydwSakko192Lm09pCd F/v2tefz6HW9OREuxRXXEv5ZNblznj55gEtzZCfQIJRST5MHzjsGN9jSXd8jpFmcoJG+AkZcEuKj0YQj V2T1eMspIH7oaaiKQCJuZMwvI9WoyxMybYOTRVsqiP 9SRn4ovne7yTH/ZTPJMwSlxkY7AI+xaNMMuRRWxS+k+PxjkrKJJr6TBQVkz3KZelJerT3cgDneF/c3rL 7WyCK7qGDE1IwMd/U0Xe6tRu7YXDQ7j6nVWGaeteXQjt7Wj3sfPJSETqKbZLngHLF+v5NKGYJw7apOcw GGZWEbSNIO4IzUslw2/r9OMtfm8QUt4IUE9FPViW8V ZivbGRTi5G+oXQO0k4QaQ+nm0yAzNQ/nULXMAJt0mAVK3pdU2Uzq6MutQW4C+EJ1U2/EiNBKhtFbioBW 5/wpugupvG1tkEAT+fO7/15Lo6VOtz6opGtGcUjIj82rCbQBT+LA3DkPcREYhr+3Z5KAxtiwiqvrrYiW //mFd+JEmKb9avlZEpGDYFGTgs4+nqS+M8kz6esgcq UqOG14AsAmTOSVbYVgZvqLQJgbyAhwr4pUqSkQj1oDF91Mm4aALY9/zblELli3ZruETo+1LWcNhu2ZVI RWsmXFCo05RQn+zi0OiC2dkumCzbczhKzTrPT/vFFdXpDd6fhfvl6ix2iNdiwToiU1c6Fd9ndY71/Legal Stenographer [file] dvT/N3gy331jf2I1kzoGHi8Ks3DCTmWggMH4bKOc/Zs77RvwExeQs5Osf3GoEiBX+Q2tpFLsl6f8x+lead project manager [file] 318jOzxQwr7Yprmx+WcUP+qK9iODxQSsxnq6uo/DOBIE WORKER [file] [facility]//CdhsoP1BcId0GXmyymip7fZ43RwD4WzvdFC/ 86HT81gRE9P+u2KA3ibjsuetxMXU29UztdaVWDrSPkfrIGZK6O7Zr4+Tj6nfhxKqGHwimmc4p8HPlGnn BRnxjKER4LlIWt2R6BZXh8mgkcfPB0Ix33R4Oe8KPoVFCpc5j5x09/U50fZZ2PHyAx5hGp2V/gkBHFwi GZylJCHS9a2dSAZnl2prM89X2JZFLGmCCUHG0iOqLG S/KULtVt+cZZQ+1G2ZwkGv4lsWAbmtLA+qmRHRkScOW+2tSUz22zJeDUmI5oi6+hp6IFtru3T6rfSP8S YvTLO/sVSU/6wmjnayXMZls+s9vXiw70Ew3ro+WPy1ws5c8WQ+TB5cR5IrzR/AXfExkrFXH9Mk8eqYB2 JbuB6fkdukDZpogyq7i/0ACcycVR32TRxqkk7y1Rim tHA37NjUhLXhRJR2J05Qo0vBO/Chy6rNz44JIUohxbYiAKqa7C13hqidpMmS6jqqubzzP2orB+jFAl2k SCZ36v/detkm3EvWRN6iesaHYNwwRgZxpMFtlOOOg3pI/57Y9Y/VhJiNy7xDmbVu94LmN8c4qISHj572 t4rxV+XH8llU9NLOf6lItqzY3XH0EnapZRro/nCeAa nM4OKLN/Sa1wftI5tniBjT2+CTsaI86j+X5527vZJnxrb4vc7Dhh9w9e9jn3FYy2xsYXyevtBaygqdCh EDnPdY0Y6Bdm1MhACiib48u52GPtT5H1WQO0Y7dKTSvOIUTXXEkZ0vvAZBXTcknejMGbkPA5p/F3dv+R LK9D1SLlLrqv6uWXU1hwI2XWcGGkY7SLp9CWPNDPIC VVsRiCW5jot2SgN6R9aNvUfOgMfbl343X19/4Nyu2h+9oct74ZwOIi/r3xjxV83OA8bFA2pQkYYOo83b hTYI0wt3eUs7jd1x6X8WrNdwrUiiIpwuH/Wm85URmPYG5+GdJfPS3paJNnNx0+1tC1LKnxcdN7my2Y/L RiJDr91rXKIMNCMlJuer/s9QVNf892VNGnqE7U4hmI lxf66ZqzYsugXsK6u22N6G4KlTMnbZxVY7COV11r09Xg+eb1aWjR0fvGRK8AYHt5j0LQckOtl3MLTw1B 3JM5PfTBnU1+YLoXA/mdTCywMN9HurBgWk4xU0HXNDaS6TXcWPu91AEjPmZW3TV8DswAxDZwhPJ7HwgT L65i51mZ0X55UDHWYpgAvv4xqZmttr1eNmt/6toNTP IpeMNb9+c9e3uCjGxOOXD44Qr/YNCstyyVxoSjMRncLgZN/4Kdp8n9AhA9nXYX6GLPC1oIoryJ7w3l5i [employer]/EAt1LtRNpaeSJMBbNDG2ZD4yO1a55sYZFga73kEQ2R776rqdC5VV2OeSpqFTVXJmDzSWYZg4VlEKF [file] CPX25m9XqCdLdXD+EFRAÍN+kBEK5sNhWxXK8C5idPOrRqYVDWbgEer1oaNkd23uo2gYApo/HXHqlWgww+fC [file] xbLGQNdYaV8gNUKiRFT1g5JRH2zFIx+cPbqBR7x6WEnPD2Eq6nsOhWRwgEt+yPAmzmwQvo/XJOjn+josé hUNMPGds29ayEd2BYX0/FUjB6b7PxyMbAGjz/n3r9+ddaMFaF+88xBzFuxLYWuEDCtLp7SaBHkSgY1rK 8i3N8Bfxj0Nd5kNp0wTM93oOhD20OkM5mrLCazY+Tr YJiBSfMzRPyS1aAHn20VKFyQJEsI6Fo2tDhiqC/tbAXIp4l+NPjmYAa117KDf0jJhBa+laxzTEfGh+IX iMCTT6zINrBTirLZub9rgbla9IuERKFxRqKjjWzL9XnXreuqR/ezl8PhDM3amXN4QQjldhQZDwWBQrQ1 pO+gUyCi79oh2xfkuY7xfyq77ixzozXuwSxwnq46sj [file] 6fwWmRirYtbCu3zPTOT/U2uJLlhJce9z9lWm7zGMGNYVB+zWi/MAqBVuPtpKttrmtlBidG+Jose J/8Kcne [file] X06CYqLly/1wSJffLssU+c5Bk92om1wV9uh7GaLcWEjO1/4txsbRj2ZSqB1dk7+3NnCzS0Cb91RrH/parts order and stock clerk [file] 5s96SbMZGksWEkN4WDnxX4Y1rDrPUUcqxT7+nw+dRN/q/W02Yxv9sEgIu8gjo6N83WlMzL4j1bue+ADOBE ARCHITECT [file] kick plate installer+8hDBC0TOtv2OLZbYlQbTzwugVDXTY9XHKe0QTVRDEh52CforRZdSiHir2WGK89SG/1sbnSCmuSzi [file] parts order and stock clerk/wPU+cegqORJAJSkzGM9Cp6PzKX/pdPZo/NPhwvZ [file] color adviser+3xZYPl++LB1lop/5aMgpTdu6qnFEvo1qyx2psnyda22mkZawmI9w80xnqmXF9JzaYzvv9a0BtwI3 Mf/AqXv8smiHmbwLcUtkTDx9Dpl+b3jZO+uuaNSpiVRC2KHg4NAtiNTwMBml4xX25AnbpfirVant89vN j3ivAySl8/QwWr1NQ9Wfv2m99UsDLhvcb/5bR6g7k/ vY6Aq7hj/p5DcFbSmnITzd+XrKcIIV05h5uo96tlFegygZ03NjtIaKl6fLtlfNPcHwKpVkGYc1Gl1n9m JTySKR2u84pqJ1AVtME4ED+dKM8Zd+O58pnPxiPDWQAJdPKNmmOaMrMmJ8ZdIBYVs6E87z6XaDuvJH9w F4ZZdqXgYftrftow+66ij9xpfajvLhiYxNnoscUhY2 [file] y8ANP+GfPqSONbL/Crm Manager+BY85rzUaMosESTZNcgwHduv [file] G3hf/Adam/7j/zLqNz//Y3i85dkZWjYlSFG6mmRcoM8vpeZfSonCVQGoFAQxPeuEDOmkHDIgS9HpPTFrSx 2avZNbNR4IMyIXWtAkMGPhQAJ0TAAtKXQkJZBrGa8KfOp8JLZnWrLIAtRvKOJ8jzDuhF9mcuWsBkqXPO ZwHTXbSpmQQHyiYsgsvSGuYS1FyGH8EIOvF95eCJ1H VS0zbVxwEvMgXPKmUxe7XDTKFRFYODTYR6YJSrs9WRQrBCZ9M5SOURN3IVC4Ut5cFMC7VEU7ISCUGRGk OpWrJOhITSNqLUbiLuD7VdwVMBS1Vq7jGu4ffIIfVJKmUe8GsaQnQGHmUHKSJ0SseuVgOAsqBMjsIDWv GXRqAy3EVXonSTOuYV4+PvP9lsJayD6AuPrjNREyIE LeOTYmRBZNEK9GySaRLVQrwFBEvFGYt6RdvwhO1IsWXhPzGiPMOQYRQ3ILNSxiociyNBy/6QuI/OzKAA Bnot3CWNybwjDcoPEkUD5RRjQvVN7rgk1ZIsW1OWB2nEBoGk8UKFX7JLHzIz0FJJRHB0G= ID Date Data Source [id number] 12/04/2020 11:01:51 AM EDT [facility] Name Value Range Interpretation Code Description Data Deepa rce(s) Supporting Document(s) Albumin [Mass/volume] in Serum or Plasma by Bromocresol green (BCG) dye binding method 4.0 g/dL [facility] Bil[facility] [Mass/volume] in Serum or Plasma 0.4 mg/dL <1.2 [facility] Calcium [Mass/volume] in Serum or Plasma 11.1 mg/dL 8.8-10.2 H [facility] Chloride [Moles/volume] in Serum or Plasma 99 mmol/L 98-107 [facility] Creatinine [Mass/volume] in Serum or Plasma 0.65 mg/dL 0.50-0.90 [facility] Glucose [Mass/volume] in Serum or Plasma 142 mg/dL 70-140 H [facility] Alkaline phosphatase [Enzymatic activity/volume] in Serum or Plasma 75 U/L 35-104 [facility] Potassium [Moles/volume] in Serum or Plasma 3.0 mmol/L 3.4-5.1 L [facility] Protein [Mass/volume] in Serum or Plasma 7.0 g/dL 6.4-8.3 [facility] Sodium [Moles/volume] in Serum or Plasma 135 mmol/L 136-145 L [facility] Aspartate aminotransferase [Enzymatic activity/volume] in Serum or Plasma 15 U/L <32 [facility] Urea nitrogen [Mass/volume] in Serum or Plasma 16 mg/dL 8-23 [facility] Osmolality of Serum or Plasma by calculation 284 mosm/kg 275-300 [facility] Creatinine/Urea nitrogen [Mass Ratio] in Serum or Plasma 25 [facility] Bicarbonate [Moles/volume] in Serum 27 mmol/L 22-29 [facility] Alanine aminotransferase [Enzymatic activity/volume] in Seru m or Plasma 14 U/L <33 [facility] Anion gap 3 in Serum or Plasma 9 mmol/L 8-15 [facility] Glomerular filtration rate/1.73 sq M pre dicted among non-blacks [Volume Rate/Area] in Serum or Plasma by Creatinine-based formula (MDRD) >6 0 [facility] Glomerular filtration rate/1.73 sq M pre dicted among blacks [Volume Rate/Area] in Serum or Plasma by Creatinine-based formula (MDRD) >60 [facility] ID Date Data Source [id number] 12/04/2020 11:15:10 AM EDT [facility] Name Value Range Interpretation Code Description Data Deepa rce(s) Supporting Document(s) Leukocytes [#/volume] in Blood by Automated count 5.0 10*3/uL 4-10 [facility] Erythrocytes [#/volume] in Blood by Automated count 3.61 10*6/uL 4.1- 5.3 L [facility] Hemoglobin [Mass/volume] in Blood 11.1 g/dL 11.5-15.5 L [facility] Hematocrit [Volume Fraction] of Blood by Automated count 32.5 % 3 6-45 L [facility] Erythrocyte mean corpuscular volume [Entitic volume] by Auto mated count 90.1 fL 80-96 [facility] Erythrocyte mean corpuscular hemoglobin [Entitic mass] by Automated count 30.6 pg 27-33 [facility] Erythrocyte mean corpuscular hemoglobin concentration [Mass/volume] by Automated count 34.0 g/dL 32.0-[facility] width [Ratio] by Automated count 14.8 % 11.5-14.5 H [facility] Platelets [#/volume] in Blood by Automated count 30 10*3/uL 150-400 [facility] Called to and read back by MEEK Alvarez RN AT [id number] BY 2046Confirmed Differential cell count method - Blood [facility] Neutrophils/100 leukocytes in Blood by Automated count 62 % [facility] Lymphocytes/100 leukocytes in Blood by Automated count 26 % [facility] Monocytes/100 leukocytes in Blood by Automated count 10 % [facility] Eosinophils/100 leukocytes in Blood by Automated count 2 % [facility] Basophils/100 leukocytes in Blood by Automated count 0 % [facility] Neutrophils [#/volume] in Blood by Automated count 3.07 10*3/uL 1.8-7 .0 [facility] Lymphocytes [#/volume] in Blood by Automated count 1.28 10*3/uL 1.2-4 .0 [facility] Monocytes [#/volume] in Blood by Automated count 0.49 10*3/uL 0-0.8 [facility] Eosinophils [#/volume] in Blood by Automated count 0.12 10*3/uL 0-0.5 [facility] Basophils [#/volume] in Blood by Automated count 0.01 10*3/uL 0-0.2 [facility] Nucleated erythrocytes/100 leukocytes [Ratio] in Blood by Automated count 0 /100{WBCs} 0-0 [facility] ID Date Data Source [id number] 11/28/2020 05:24:00 AM EDT [facility] Received: 11/27/2020 at 10:24:00 QPT : [facility], [address], [address] [place], [address], Wyatt Cates MD Name Value Range Interpretation Code Description Data Deepa rce(s) Supporting Document(s) ID Date Data Source [id number] 11/28/2020 05:24:00 AM EDT [facility] Received: 11/27/2020 at 10:24:00 QPT : [facility], [address], [address] [place], [address], Wyatt Cates MD Name Value Range Interpretation [...] is approximately 13% higher for peopleidentified as -[place]. eGFR NON-AFR. BRITISH 82 mL/min/1.73m2 > OR = 60 Normal [...] copy faxed has been acknowledged. Queued to: [id number] ID Date Data Source [id number] 11/25/2020 08:19:55 AM [facility] Name Value Range Interpretation Code Description Data Deepa rce(s) Supporting Document(s) Leukocytes [#/volume] in Blood by Automated count 4.9 10*3/uL 4-10 [facility] Erythrocytes [#/volume] in Blood by Automated count 3.88 10*6/uL 4.1- 5.3 L [facility] Hemoglobin [Mass/volume] in Blood 12.0 g/dL 11.5-15.5 [facility] Hematocrit [Volume Fraction] of Blood by Automated count 35.5 % 3 6-45 L [facility] Erythrocyte mean corpuscular volume [Entitic volume] by Auto mated count 91.5 fL 80-96 [facility] Erythrocyte mean corpuscular hemoglobin [Entitic mass] by Automated count 31.0 pg 27-33 [facility] Erythrocyte mean corpuscular hemoglobin concentration [Mass/volume] by Automated count 33.8 g/dL 32.0-36.0 [facility] width [Ratio] by Automated count 17.4 % 11.5-14.5 H [facility] Platelets [#/volume] in Blood by Automated count 165 10*3/uL 150-400 [facility] Differential cell count method - Blood [facility] Neutrophils/100 leukocytes in Blood by Automated count 47 % [facility] Lymphocytes/100 leukocytes in Blood by Automated count 34 % [facility] Monocytes/100 leukocytes in Blood by Automated count 9 % [facility] Eosinophils/100 leukocytes in Blood by Automated count 9 % [facility] Basophils/100 leukocytes in Blood by Automated count 1 % [facility] Neutrophils [#/volume] in Blood by Automated count 2.33 10*3/uL 1.8-7 .0 [facility] Lymphocytes [#/volume] in Blood by Automated count 1.66 10*3/uL 1.2-4 .0 [facility] Monocytes [#/volume] in Blood by Automated count 0.43 10*3/uL 0-0.8 [facility] Eosinophils [#/volume] in Blood by Automated count 0.43 10*3/uL 0-0.5 [facility] Basophils [#/volume] in Blood by Automated count 0.02 10*3/uL 0-0.2 [facility] Nucleated erythrocytes/100 leukocytes [Ratio] in Blood by Automated count 0 /100{WBCs} 0-0 [facility] ID Date Data Source [id number] 11/25/2020 09:56:25 AM EDT [facility] Name Value Range Interpretation Code Description Data Deepa rce(s) Supporting Document(s) Albumin [Mass/volume] in Serum or Plasma by Bromocresol green (BCG) dye binding method 4.5 g/dL 3.5-5.2 [facility] Bilirubin.total [Mass/volume] in Serum or Plasma 0.5 mg/dL <1.2 [facility] Calcium [Mass/volume] in Serum or Plasma 11.6 mg/dL 8.8-10.2 H [facility] Chloride [Moles/volume] in Serum or Plasma 101 mmol/L 98-107 [facility] Creatinine [Mass/volume] in Serum or Plasma 0.72 mg/dL 0.50-0.90 [facility] Glucose [Mass/volume] in Serum or Plasma 145 mg/dL 70-140 H [facility] Alkaline phosphatase [Enzymatic activity/volume] in Serum or Plasma 60 U/L 35-104 [facility] Potassium [Moles/volume] in Serum or Plasma 3.3 mmol/L 3.4-5.1 L [facility] Protein [Mass/volume] in Serum or Plasma 7.7 g/dL 6.4-8.3 [facility] Sodium [Moles/volume] in Serum or Plasma 137 mmol/L 136-145 [facility] Aspartate aminotransferase [Enzymatic activity/volume] in Serum or Plasma 17 U/L <32 [facility] Urea nitrogen [Mass/volume] in Serum or Plasma 18 mg/dL 8-23 [facility] Osmolality of Serum or Plasma by calculation 288 mosm/kg 275-300 [facility] Creatinine/Urea nitrogen [Mass Ratio] in Serum or Plasma 25 [facility] Bicarbonate [Moles/volume] in Serum 28 mmol/L 22-29 [facility] Alanine aminotransferase [Enzymatic activity/volume] in Seru m or Plasma 16 U/L <33 [facility] Anion gap 3 in Serum or Plasma 8 mmol/L 8-15 [facility] Glomerular filtration rate/1.73 sq M pre dicted among non-blacks [Volume Rate/Area] in Serum or Plasma by Creatinine-based formula (MDRD) 88 mL/min/1.73m2 >60 [facility] Glomerular filtration rate/1.73 sq M pre dicted among blacks [Volume Rate/Area] in Serum or Plasma by Creatinine-based formula (MDRD) >60 [facility] ID Date Data Source [id number] 11/27/2020 03:57:49 PM [facility] Name Value Range Interpretation Code Description Data Deepa rce(s) Supporting Document(s) Cancer Ag 125 [Units/volume] in Serum or Plasma 32 U/mL <38 [facility] The CA 125 assay should not be used as a screening test to detect Cancer. Its use as an aid in the management of Ovarian Cancer has been reported. CA125 values obtained using different methodologies cannot be used interchangeably. This method is manufactured by [employer] and is an electrochemiluminesence immunoassay. ID Date Data Source [id number] 11/17/2020 01:33:00 PM EDT [facility] ([facility]) Name Value Range Interpretation Code Description Data Deepa rce(s) Supporting Document(s) Thyrotropin [Units/volume] in Serum or Plasma by Detec tion limit <= 0.05 mIU/L 0.85 uIU/mL 0.36-3.74 [facility] ([facility] ) ID Date Data Source [id number] 10/23/2020 08:06:20 AM [facility] Name Value Range Interpretation Code Description Data Deepa rce(s) Supporting Document(s) Progress Note [facility] MNVMUl0wNjNORyIj70/TVGwqGDChr9RzRTvtEXt1JFzrSJDwI9RvIUR0rE7vIDI4ILdKKdLlLwVsPgW1 lb [file] LiABu0TNA+YB8eBLv+Gh5Qr3IducD5ibDyFKbhRVG8Zx8ZASATM7BLWl== ID Date Data Source [id number] 10/23/2020 08:06:00 AM EDT [facility] Name Value Range Interpretation Code Description Data Deepa rce(s) Supporting Document(s) SARS-CoV-2 RNA 2018 nCoV Real-Time RT-PCR: NOT DETECTED [facility] This lab was ordered by [facility] and reported by [facility]. ID Date Data Source [id number] 10/23/2020 08:34:39 PM EDT [facility] Name Value Range Interpretation Code Description Data Deepa rce(s) Supporting Document(s) Specimen source [Identifier] of Unspecified specimen [facility] SARS-CoV-2 RNA 2019 nCoV Real-Time RT-PCR: NOT DETECTED [facility] Assay Performed 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 [facility] Patient has symptoms related to condition [facility] When did you start to experience these symptoms [Date and time] [Phen X] [facility] Patient was hospitalized because of this condition [facility] patient was admitted to ICU for [facility] Patient resides in a congregate care setting [facility] status [facility] ID Date Data Source [id number] 09/30/2020 09:19:02 AM EDT [facility] Name Value Range Interpretation Code Description Data Deepa rce(s) Supporting Document(s) Leukocytes [#/volume] in Blood by Automated count 3.2 10*3/uL 4-10 L [facility] Erythrocytes [#/volume] in Blood by Automated count 3.45 10*6/uL 4.1- 5.3 [facility] Hemoglobin [Mass/volume] in Blood 9.0 g/dL 11.5-15.5 [facility] Hematocrit [Volume Fraction] of Blood by Automated count 28.0 % 3 6-45 L [facility] Erythrocyte mean corpuscular volume [Entitic volume] by Auto mated count 81.3 fL 80-96 [facility] Erythrocyte mean corpuscular hemoglobin [Entitic mass] by Automated count 26.2 pg 27-33 L [facility] Erythrocyte mean corpuscular hemoglobin concentration [Mass/volume] by Automated count 32.2 g/dL 32.0-[facility] distribution width [Ratio] by Automated count 26.1 % 11.5-14.5 H [facility] Platelets [#/volume] in Blood by Automated count 309 10*3/uL 150-400 [facility] Differential cell count method - Blood [facility] Neutrophils/100 leukocytes in Blood by Automated count 48 % [facility] Lymphocytes/100 leukocytes in Blood by Automated count 39 % [facility] Monocytes/100 leukocytes in Blood by Automated count 13 % [facility] Neutrophils [#/volume] in Blood by Automated count 1.54 10*3/uL 1.8-7 .0 L [facility] Lymphocytes [#/volume] in Blood by Automated count 1.25 10*3/uL 1.2-4 .0 [facility] Monocytes [#/volume] in Blood by Automated count 0.42 10*3/uL 0-0.8 [facility] Anisocytosis [Presence] in Blood by Light microscopy [facility] Microcytes [Presence] in Blood by Light microscopy [facility] Polychromasia [Presence] in Blood by Light microscopy [facility] ID Date Data Source [id number] 09/30/2020 09:40:22 AM EDT [facility] Name Value Range Interpretation Code Description Data Deepa rce(s) Supporting Document(s) Albumin [Mass/volume] in Serum or Plasma by Bromocresol green (BCG) dye binding method 3.6 g/dL 3.5-5.2 [facility] Bilirubin.total [Mass/volume] in Serum or Plasma 0.4 mg/dL <1.2 [facility] Calcium [Mass/volume] in Serum or Plasma 10.5 mg/dL 8.8-10.2 H [facility] Chloride [Moles/volume] in Serum or Plasma 103 mmol/L 98-107 [facility] Creatinine [Mass/volume] in Serum or Plasma 0.61 mg/dL 0.50-0.90 [facility] Glucose [Mass/volume] in Serum or Plasma 122 mg/dL 70-140 [facility] Alkaline phosphatase [Enzymatic activity/volume] in Serum or Plasma 70 U/L 35-104 [facility] Potassium [Moles/volume] in Serum or Plasma 3.5 mmol/L 3.4-5.1 [facility] Protein [Mass/volume] in Serum or Plasma 7.4 g/dL 6.4-8.3 [facility] Sodium [Moles/volume] in Serum or Plasma 138 mmol/L 136-145 [facility] Aspartate aminotransferase [Enzymatic activity/volume] in Serum or Plasma 21 U/L <32 [facility] Urea nitrogen [Mass/volume] in Serum or Plasma 17 mg/dL 8-23 [facility] Osmolality of Serum or Plasma by calculation 289 mosm/kg 275-300 [facility] Creatinine/Urea nitrogen [Mass Ratio] in Serum or Plasma 29 [facility] Bicarbonate [Moles/volume] in Serum 27 mmol/L 22-29 [facility] Alanine aminotransferase [Enzymatic activity/volume] in Seru m or Plasma 16 U/L <33 [facility] Anion gap 3 in Serum or Plasma 8 mmol/L 8-15 [facility] Glomerular filtration rate/1.73 sq M pre dicted among non-blacks [Volume Rate/Area] in Serum or Plasma by Creatinine-based formula (MDRD) >6 0 [facility] Glomerular filtration rate/1.73 sq M pre dicted among blacks [Volume Rate/Area] in Serum or Plasma by Creatinine-based formula (MDRD) >60 [facility] ID Date Data Source [id number] 10/02/2020 02:05:20 PM [facility] Name Value Range Interpretation Code Description Data Deepa rce(s) Supporting Document(s) Cancer Ag 125 [Units/volume] in Serum or Plasma 67 U/mL <38 H [facility] The CA 125 assay should not be used as a screening test to detect Cancer. Its use as an aid in the management of Ovarian Cancer has been reported. CA125 values obtained using different methodologies cannot be used interchangeably. This method is manufactured by [employer] and is an electrochemiluminesence immunoassay. ID Date Data Source [id number] 09/28/2020 04:08:27 PM [facility] Name Value Range Interpretation Code Description Data Deepa rce(s) Supporting Document(s) Progress Note [facility] VBIVJf5gDfZHPyLx55/YLSftLBTtv8TaYCdnYYd5ABxvVKTkI3CnDNI7oR9bFVK5OHeWSnEwRwWiLHC0 lbm [file] AgICAgICAgICAgICAgICAgICAgICAgICAgICAgICAgICAgICAgICAgICAgICAgICAgICAgICAgICAgIC AgICAgICAgICAgICAgICAgICAgICAgICAgICAgICANCiAgICAgICAgICAgICAgICAgICAgICAgICAgIC AgICAgICAgICAgICAgICAgICAgICAgICAgICAgICAg ICAgICAgICAgICAgICAgICAgICAgICAgICAgICAgICAgICAgICAgICANCiAgICAgICAgICAgICAgICAg ICAgICAgICAgICAgICAgICAgICAgICAgICAgICAgICAgICAgICAgICAgICAgICAgICAgICAgICAgICAg ICAgICAgICAgICAgICAgICAgICAgICANCiAgICAgIC AgICAgICAgICAgICAgICAgICAgICAgICAgICAgICAgICAgICAgICAgICAgICAgICAgICAgICAgICAgIC AgICAgICAgICAgICAgICAgICAgICAgICAgICAgICAgICANCiAgICAgICAgICAgICAgICAgICAgICAgIC AgICAgICAgICAgICAgICAgICAgICAgICAgICAgICAg ICAgICAgICAgICAgICAgICAgICAgICAgICAgICAgICAgICAgICAgICAgICANCiAgICAgICAgICAgICAg ICAgICAgICAgICAgICAgICAgICAgICAgICAgICAgICAgICAgICAgICAgICAgICAgICAgICAgICAgICAg ICAgICAgICAgICAgICAgICAgICAgICAgICANCiAgIC AgICAgICAgICAgICAgICAgICAgICAgICAgICAgICAgICAgICAgICAgICAgICAgICAgICAgICAgICAgIC AgICAgICAgICAgICAgICAgICAgICAgICAgICAgICAgICAgICANCiAgICAgICAgICAgICAgICAgICAgIC AgICAgICAgICAgICAgICAgICAgICAgICAgICAgICAg ICAgICAgICAgICAgICAgICAgICAgICAgICAgICAgICAgICAgICAgICAgICAgICANCiAgICAgICAgICAg ICAgICAgICAgICAgICAgICAgICAgICAgICAgICAgICAgICAgICAgICAgICAgICAgICAgICAgICAgICAg ICAgICAgICAgICAgICAgICAgICAgICAgICAgICANCi AgICAgICAgICAgICAgICAgICAgICAgICAgICAgICAgICAgICAgICAgICAgICAgICAgICAgICAgICAgIC AgICAgICAgICAgICAgICAgICAgICAgICAgICAgICAgICAgICAgICANCjw/hOZrM5crrXHqzgX5Z3ggTk 8XJb8NAA4iq9BrDHFwVAlkddMgAhpJZwUaXBAaAytW Zri8QDpuYI9JyFBsL2OuG0ZuUDzbRK4UPRFmOBUqrNQxJHWkPWSqNqF4XZDhWMemTI7BkAFvJVsaECFp MXZiIaVcSLZgVNRrCAWsHTQjAAICGPTsCXQvNiSwSMToWKRvHKrdRJRMUL3LIfXtW1UqaO61KJpDIk9+ CZfjvlAiHolAUfD7NPWcj1SgFQk7OF2TYVIiYfzpm9 DpYopnGHDFVNvnSZ9MEZF2LTR0GYPqZj3HSHPhC165gcKxOR2ZJl4NCzPsNR4uvy6ERyytBAXvKdrXGz p9KBmvAU2YwGOqQBeHnk4saxAdmjNXk2MqimMlhNVMMEHkQQAFHMSqdtHlVFteViWoUZZtCS1bAI3tXY UmDLZ2MqVzOPAFFQ3HECDhWXNqyCJoMXRhECUWVX6E LNhzZSV4HPIjsaPkcCEeFAumMR9FRQHtafSnIfzdFMNGWAc+Tc4GHK1iv3UsRXvhPLLbQJ6mdy9TDYgC UiBaR0T7vXTvJ1T2KYqbDh5CXVDgGTJaOeNrCFJZCKmiFD1UXW5xvkC2CC2VfNQgTSRjOLHgrNIpQAz7 R69hfALnPUqzNQ6DWDM+Justina+Tt6VMYWhQLKqQCBxZk IdMKLCSsBaC7PlJ5DZz6PpA2AoSP13fYxepnVtBMnwAA7XLM1pQOXpRCHYIF2WrESwwV4sexPbBiDhOP VBLdRjM52uvEWzVUIhVBV2GTNtQl3FQXAdO4EdlwTsvOnlojYbGHKrCPTYXK3PYAzmsyZjbAOdsWejSH 72eAhuAG7ZAz3QQbZeXZ7myj8SpYJsNp6BZNW6GP5V NHPuWKJgZCBkTDR9URYqDdIwXUitODNvZDPpCXL0SPGiVIPfEI8JXbGjHJVpAXK8QEUgAWHbPCOmwa7B GJJjURL4JOGxAqOcLSVkQCZsWItyIQSdFYLmTXG1XONrDEGfLG7IVmEcPYDgWNOtSqOeBSHoVAJlos8X EAHeWSKgOSVkGgMsXAFvUOOkRGzzHRZhHPV3QVScVQ DrDWLlQE0WZkEtNSXzSNzpDZlzUPZiROXevo5VYLMxSKTpJhVjLsWzVHGhOIGuOJptOYFiQFTsSwVhSJ AwKWCnNS2XXgCvYCMfFYVyWSYcBZTiESLgjg8ANSNyEMCrAYL8FgOgUFLeLBHpMBnhIWCxEGP5FEM0QE VoBXOkWP4IBjRgSVOuLJl4MlPxKVXkRHEyqo3RRQCm CURuOjHzDUZhUDAjIVKdNMdvBNYhGFFrLsHfCTAzEPLjRZ9JVtDyRVZqAsO6GAjkIGXgKMLdjn7ZBKEm YQMaDKSkCHDyUCWxNSLjEYzyTHNpANB0BXL6LPNlQORtUE3JBrNlWTGyNhPkPgSoYIVbRHPqry0KMQCw NQDrIaZ5EHTvLUGmCASlPSdjKCCiCAA9TTY8ZIMiCR BcIX9IBoEdBTZwRwh7JEHcBUDrRULivu5BJIMkENJeYxo3ARFhJRNkGZPsBVypQOLeGBV7GuY4ASAlLV AvKE5ZWkFtXMFpQfc8EUqvUSZhKGGjhe4EAMSxYBIaYDa0KXTiHVWrZJUeNIkeIHUiQAEwXIS6RRSbOD QrAM6SJiRrPQPcECBdXSLhXGNgHMIupl8MDXQiJZH5 DJE1ORKxQRSmAQSpPUfzKWEmAXMhKuk6LWOtMPNvQT8NViKuTLOdWFY6RrTkPAXkIJLehs8LEHDxUQT9 KmEhNVSkQZXlWTWmHEwoCORfVEReAVr1AHCsIVIbYA1MExVmCJIxMNB9XdTdEFNjYOBmyt3JPGJcWLC8 QrK5MaJyIECqGVTvBPehJYQhHWT8EkfsKXVbSFCfRX 5VUdUvHOReYTW6RHNuOPGqUSPdmv1BHKLbLOC1SUk6DCVyJUQqFXBiXRb7nzCwwXSmJZu1RL1AW0Qkyl IfHKKKYe3Mm139GRX2YMQsDj4LM3dvEb4zNCAbCVTLVk3DMJb2DyF6RSAvTmQ6KsEfOFBxQuG2KjV9JT Q1VCJ9FRNcTLG+KHioINz2XwKeYcGwTqH0LdRoGaRb VCM6LKYrHJcgPDU0TS6wFBISGl9+IMsmvOKriJnrJOFZTjF6EVV3HNgnKGUNUu4G ID Date Data Source [id number] 09/29/2020 06:00:00 AM EDT [facility] Received: 09/28/2020 at 09:32:00 QPT : [facility], [address] [place] [address], [address] [place] [address], [phone], Wyatt Cates MD Received: 09/28/2020 at 09:32:00 QPT : [facility], [address] [place], [place] [address] , [address] [place] [address], [phone], Wyatt Cates MD Name Value Range Interpretation Code Description Data Deepa rce(s) Supporting Document(s) ID Date Data Source [id number] 09/29/2020 06:00:00 AM EDT [facility] Received: 09/28/2020 at 09:32:00 QPT : [facility], [address] [facility], [address] [place] [address], [phone], Wyatt Cates MD Received: 09/28/2020 at 09:32:00 QPT : [facility], [address] , [address] [place] [address], [phone], Wyatt Cates MD Name Value Range Interpretation [...] in Blood by Automated count 1479 cells/uL 7115-1031 Below low normal [facility] Lymphocytes [#/volume] [...] results) [facility] ID Date Data Source [id number] 09/29/2020 06:00:00 AM EDT [facility] Received: 09/28/2020 at 09:32:00 QPT : [facility], [address], [address] [place], [phone], Wyatt Cates MD Received: 09/28/2020 at 09:32:00 QPT : [facility], [address], [address] [place], [phone], Wyatt Cates MD Name Value Range Interpretation Code Description Data Deepa rce(s) Supporting Document(s) Morphology [Interpretation] in Blood Narrative N ORMAL Normal (applies to non- numeric results) [facility] Anisocytosis 3 +Polychromasia 2 +Hypochr omasia 2 + Your request to have a duplicate copy faxed has been acknowledged. Queued to: [id number] ID Date Data Source [id number] 09/25/2020 08:21:29 AM EDT [facility] Name Value Range Interpretation Code Description Data Deepa rce(s) Supporting Document(s) Leukocytes [#/volume] in Blood by Automated count 3.3 10*3/uL 4-10 L [facility] Erythrocytes [#/volume] in Blood by Automated count 3.31 10*6/uL 4.1- 5.3 [facility] Hemoglobin [Mass/volume] in Blood 8.5 g/dL 11.5-15.5 [facility] Hematocrit [Volume Fraction] of Blood by Automated count 26.2 % 3 6-45 [facility] Erythrocyte mean corpuscular volume [Entitic volume] by Auto mated count 79.4 fL 80-96 [facility] Erythrocyte mean corpuscular hemoglobin [Entitic mass] by Automated count 25.8 pg 27-33 [facility] Erythrocyte mean corpuscular hemoglobin concentration [Mass/volume] by Automated count 32.5 g/dL 32.0-36.0 [facility] Erythrocyte distribution width [Ratio] by Automated count 19.6 % 11.5-14.5 [facility] Platelets [#/volume] in Blood by Automated count 77 10*3/uL 150-400 [facility] Differential cell count method - Blood [facility] Neutrophils/100 leukocytes in Blood by Automated count 46 % [facility] Lymphocytes/100 leukocytes in Blood by Automated count 39 % [facility] Monocytes/100 leukocytes in Blood by Automated count 14 % [facility] Eosinophils/100 leukocytes in Blood by Automated count 1 % [facility] Basophils/100 leukocytes in Blood by Automated count 0 % [facility] Neutrophils [#/volume] in Blood by Automated count 1.56 10*3/uL 1.8-7 .0 L [facility] Lymphocytes [#/volume] in Blood by Automated count 1.28 10*3/uL 1.2-4 .0 [facility] Monocytes [#/volume] in Blood by Automated count 0.45 10*3/uL 0-0.8 [facility] Eosinophils [#/volume] in Blood by Automated count 0.02 10*3/uL 0-0.5 [facility] Basophils [#/volume] in Blood by Automated count 0.01 10*3/uL 0-0.2 [facility] Nucleated erythrocytes/100 leukocytes [Ratio] in Blood by Automated count 0 /100{WBCs} 0-0 [facility] ID Date Data Source [id number] 09/25/2020 08:48:03 AM EDT [facility] Name Value Range Interpretation Code Description Data Deepa rce(s) Supporting Document(s) Albumin [Mass/volume] in Serum or Plasma by Bromocresol green (BCG) dye binding method 4.1 g/dL 3.5-5.2 [facility] Bilirubin.total [Mass/volume] in Serum or Plasma 0.3 mg/dL <1.2 [facility] Calcium [Mass/volume] in Serum or Plasma 10.3 mg/dL 8.8-10.2 H [facility] Chloride [Moles/volume] in Serum or Plasma 102 mmol/L 98-107 [facility] Creatinine [Mass/volume] in Serum or Plasma 0.66 mg/dL 0.50-0.90 [facility] Glucose [Mass/volume] in Serum or Plasma 104 mg/dL 70-140 [facility] Alkaline phosphatase [Enzymatic activity/volume] in Serum or Plasma 80 U/L 35-104 [facility] Potassium [Moles/volume] in Serum or Plasma 3.4 mmol/L 3.4-5.1 [facility] Protein [Mass/volume] in Serum or Plasma 7.8 g/dL 6.4-8.3 [facility] Sodium [Moles/volume] in Serum or Plasma 137 mmol/L 136-145 [facility] Aspartate aminotransferase [Enzymatic activity/volume] in Serum or Plasma 24 U/L <32 [facility] Urea nitrogen [Mass/volume] in Serum or Plasma 14 mg/dL 8-23 [facility] Osmolality of Serum or Plasma by calculation 285 mosm/kg 275-300 [facility] Creatinine/Urea nitrogen [Mass Ratio] in Serum or Plasma 21 [facility] Bicarbonate [Moles/volume] in Serum 29 mmol/L 22-29 [facility] Alanine aminotransferase [Enzymatic activity/volume] in Seru m or Plasma 24 U/L <33 [facility] Anion gap 3 in Serum or Plasma 6 mmol/L 8-15 L [facility] Glomerular filtration rate/1.73 sq M pre dicted among non-blacks [Volume Rate/Area] in Serum or Plasma by Creatinine-based formula (MDRD) >6 0 [facility] Glomerular filtration rate/1.73 sq M pre dicted among blacks [Volume Rate/Area] in Serum or Plasma by Creatinine-based formula (MDRD) >60 [facility] ID Date Data Source [id number] 09/25/2020 09:47:33 AM [facility] Value Range Interpretation Code Description Data Deepa rce(s) Supporting Document(s) Ferritin [Mass/volume] in Serum or Plasma 151 ng/ml 13-150 H [facility] ID Date Data Source [id number] 09/25/2020 10:42:44 AM [facility] Value Range Interpretation Code Description Data Deepa rce(s) Supporting Document(s) Iron [Mass/volume] in Serum or Plasma 66 ug/dl 37-145 [facility] Transferrin [Mass/volume] in Serum or Plasma 238 mg/dL 200-360 [facility] Iron binding capacity [Mass/volume] in Serum or Plasma 331 ug/dl 228 -428 [facility] Iron saturation [Mass Fraction] in Serum or Plasma 20.0 % 20-55 [facility] ID Date Data Source [id number] [facility] Code Description Data Deepa rce(s) Supporting Document(s) Cancer Ag 125 [Units/volume] in Serum or Plasma 80 U/mL <38 [facility] The CA 125 assay should not be used as a screening test to detect Cancer. Its use as an aid in the management of Ovarian Cancer has been reported. CA125 values obtained using different methodologies cannot be used interchangeably. This method is manufactured by [employer] and is an electrochemiluminesence immunoassay. 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/4rhT/6VZ7I7h4SUXH/gsPfYjQo6TCS3Ej8pYJmR6V [file] single pointed operator/6bWTjQgZGPD09+Wf+PjEbw7ID40UBV0M4iupK6+qQVd/D6qKb3w95aK7kSjyaQmdhpvrV+Pgj8Hm [file] ICAgICAgICAgICAgICAgICAgICAgICAgICAgICAgIC OjUTOdVJGbBKTwPEXbUMMjELIcWDXoXIOtWNXqEMLyQFGfJDAsWUWvNKNxTPOpENGsEZUmDM4XSSCoOP AgICAgICAgICAgICAgICAgICAgICAgICAgICAgICAgICAgICAgICAgICAgICAgICAgICAgICAgICAgIC AgICAgICAgICAgICAgICAgICAgICAgICAgICAgICAg RYZaOK0IUHZeMADmTVGgMWWbESUoMUDtPJGtBDOuUUVrKHIaLKWwILRsPRJiEDNgKJLmEQJiBHFwBCTp YTGnBEBqFINcBBSxCDShLBGyQNIkQBRgBBLxVNDpSXQsEULhIMVuZSIjBSQwGG8SYHHoJDCwXPTsZCOl ICAgICAgICAgICAgICAgICAgICAgICAgICAgICAgIC GqGDHdLXYuGANiHIBtVVEqJKXpVSVwNTVsBVCrHCUxNFSlPQWlJVEcEYIrUMRkTKJaARHvYVZxCG7SIQ AgICAgICAgICAgICAgICAgICAgICAgICAgICAgICAgICAgICAgICAgICAgICAgICAgICAgICAgICAgIC AgICAgICAgICAgICAgICAgICAgICAgICAgICAgICAg LRDeMQWyTU2QBUZsPRSvSKPkCWErTCHqNKMzZJJuWZPeZFDbESYaDFZsQQNpVOFoVKHfGHMmJWCpUYAa PAVoMJLlAIWwXTSfYLJdNGSiLRCcZCBfERNuPXUdTIVnTBMaMDEnQDZhAUWrDHLlAV8RSYYnEBPoBJYy ICAgICAgICAgICAgICAgICAgICAgICAgICAgICAgIC AgICAgICAgICAgICAgICAgICAgICAgICAgICAgICAgICAgICAgICAgICAgICAgICAgICAgICAgICAgIA 0KICAgICAgICAgICAgICAgICAgICAgICAgICAgICAgICAgICAgICAgICAgICAgICAgICAgICAgICAgIC AgICAgICAgICAgICAgICAgICAgICAgICAgICAgICAg AZQwSYXeKVAzQJ1QCUPsVPGpRAQmONJgWAAqPLZwNNLtIFMjGCTfDILuEKCeSGPtOTZvYXTkKRQsQBEv DVNjNHBwLEXeZMLkLHHsXYSpQAQpNMChRDWtJQRqPAGdDRUeLNSfYPCrSTVzPBWaWULgOD9NMTFaDIBg ICAgICAgICAgICAgICAgICAgICAgICAgICAgICAgIC AgICAgICAgICAgICAgICAgICAgICAgICAgICAgICAgICAgICAgICAgICAgICAgICAgICAgICAgICAgIC RuSD7OEI53iSBla5B3XLTuSW6sofz/Oi9JCGlttjArgPVtIL8LPpRrGK3nbh0ZFnZtGA2qnq5ULMiKQe FvC2A7nZWuXDJjCPFDBoAaD31wQLxcLq61UZqdAVOt FaPuYYi3Lk8QBaKnT1oqZRAiKpV5XKRpCaW1MSNsUqK0LYAgHzBkMAZxKTZnDF1TSEWnK656hwUrXS3J Qc3LQhJaZZ1fhg8JKkQyOODxJtaGCjl7VDstLY9NoWIzxUPcHdKqBEDUEvFlC0pow0IbBuVcJBAKCRhf VN2Ji5JlqHOoEJh+Lm3RZI2ny8XnNSihHyVnVW7ltd 4HOUyQDxIyJ2ZkmEdxIDZwz5oxSHDzDM5hbROcHVO0PNLmeY8sWFBuc22jdWmcMAPtESDxEE2hWZ8oCI ZhSKZ6QjL8ESXCFV0DMPPtWFXgiEKgYCFsRWUXGT8PEAxoVTY4PFPsuvJnuHNoIZmeXV7GTXZbmxVuKh UgMCBSDQo+Um0QSN8eb9ZhETtzEiOyAQ2wza1GGPdZ VhUzI2D7vXWhR0T0ZYugPr8NKDJcPWBbCqPuJJYOWWbpSQ6QQC9gzbM4GR2VpKKsLBRnMKQvmTUnAYk5 K29eoTAkPZyoSY1WSCP+Justina+Hh5WNSFvFVOgTIEwYuKmKAGAYwHmJ8LeU2QLr4LzL4XbRB94uHgrztGs SGcpYB6WEC4qWZWpCAXJXR6ZkNPwnC3yboMcWSCdDG GWPsRwR20ixUJzKXEyKYO1UBYfKs1QPHDqY9IxwdWiuXfjhdCsGCWoEDYNVV3BAAcxrmUugTEcoYmmHY 40qNmcQT3WVa6GHyUwAZ2nuf8OjNDqZo3EUEDqDH1ERWExXNAtTNMuHMI7YENeHrApLBhpJSRfFWEpAF J4TNDsEJTeLB2TSvBgSQDcXpyuHKSxWNQfUNZmxf5P ODElSIYlRWd7AFNqXUEtAHAxTHdtSJPiGUDyCCH7SXXiSBDjOJ2MOaUeFNPlVALlUxEfAJDqOBZptl0C LEEbFDGpVAG7WCHmYMAuLYMeENmsSHChQAR3Jww2RCIcGQHoRJ3FOuWdAHBvYOr4JGIcZYNqHFXmrq0T XASoXLQaQVX5LDIoPYRmYQGcNZkgESKuRLZdFAV4BG RfSUUsOK5CZlVwKQLnVPG6XZzkOAEpVMXqtr5QCFAyAFAzTAF8KMThDQZaYIUqTWrzWBVnWVI0XOB2WT VaROHfOQ0FHfMpYFSdTUAvJsWkEBBtGQBmpp0AFZReZQVgEQTlKGFpRJJwPTKwWMvgDSSdDHB0ZIS9DG BbMIHbKP8TSlUcYJXiURR6JgBpRZGmXXPhpi4SLVLp BUThAsw8IZUuYUOgGMJfHEwcHXJtMTW8WzH5TUWdCDGdXJ4ANlNxEGXcQsa6WpFgEBWlIJGmnk4VMGLw HGIzEVfgLKJqDTEmSXEzLKgjUSZpJAC8RNq5KCXvMJXvFX7RQkUcSEPjDpqsInQcYOGeXUFqwy3GWMPe XFDuURBuKSDhGEPnGOGaDGwpHJKiVFPeSOm9SHXhUJ FuQA7PPyMfFCXaLwHmHMzsQBMpHDZcul2MGCEpYRVsDKR5DsZuXXCsTIQdMWq0gzZctDQfHMi4VH7KE1 RpksVqYpzKQr0Pc529DDM7OZItYe6PB2uyAm7yGUCoPLNSLq4UDJi6RbJfFPLdTgD1L4Y4HSV1IjVkHV Q3MOLdMRf6MnG4SDB+FVlsJSI2IzQnSxy9FSh2UGXn FxWaRSAmNDYeKAYbLKR6DF7nIGHKEl1+NRokqOEulGhmUXKIRgVtIGBnFQyqARTRWm0P ID Date Data Source [id number] 09/04/2020 08:37:37 AM EDT [facility] Name Value Range Interpretation Code Description Data Deepa rce(s) Supporting Document(s) Leukocytes [#/volume] in Blood by Automated count 5.7 10*3/uL 4-10 [facility] Erythrocytes [#/volume] in Blood by Automated count 4.13 10*6/uL 4.1- 5.3 [facility] Hemoglobin [Mass/volume] in Blood 10.6 g/dL 11.5-15.5 [facility] Hematocrit [Volume Fraction] of Blood by Automated count 32.5 % 3 6-45 L [facility] Erythrocyte mean corpuscular volume [Entitic volume] by Auto mated count 78.7 fL 80-96 L [facility] Erythrocyte mean corpuscular hemoglobin [Entitic mass] by Automated count 25.5 pg 27-33 L [facility] Erythrocyte mean corpuscular hemoglobin concentration [Mass/volume] by Automated count 32.4 g/dL [facility] width [Ratio] by Automated count 17.8 % 11.5-14.5 H [facility] Platelets [#/volume] in Blood by Automated count 304 10*3/uL 150-400 [facility] Differential cell count method - Blood [facility] Neutrophils/100 leukocytes in Blood by Automated count 67 % [facility] Lymphocytes/100 leukocytes in Blood by Automated count 20 % [facility] Monocytes/100 leukocytes in Blood by Automated count 11 % [facility] Eosinophils/100 leukocytes in Blood by Automated count 1 % [facility] Basophils/100 leukocytes in Blood by Automated count 1 % [facility] Neutrophils [#/volume] in Blood by Automated count 3.88 10*3/uL 1.8-7 .0 [facility] Lymphocytes [#/volume] in Blood by Automated count 1.14 10*3/uL 1.2-4 .0 L [facility] Monocytes [#/volume] in Blood by Automated count 0.61 10*3/uL 0-0.8 [facility] Eosinophils [#/volume] in Blood by Automated count 0.03 10*3/uL 0-0.5 [facility] Basophils [#/volume] in Blood by Automated count 0.04 10*3/uL 0-0.2 [facility] Nucleated erythrocytes/100 leukocytes [Ratio] in Blood by Automated count 0 /100{WBCs} 0-0 [facility] ID Date Data Source [id number] 09/04/2020 09:15:16 AM EDT [facility] Name Value Range Interpretation Code Description Data Deepa rce(s) Supporting Document(s) Albumin [Mass/volume] in Serum or Plasma by Bromocresol green (BCG) dye binding method 3.6 g/dL [facility].5[facility].2 [facility] Bil[facility] [Mass/volume] in Serum or Plasma 0.5 mg/dL <1.2 [facility] Calcium [Mass/volume] in Serum or Plasma 10.8 mg/dL 8.8-10.2 H [facility] Chloride [Moles/volume] in Serum or Plasma 97 mmol/L 98-107 L [facility] Creatinine [Mass/volume] in Serum or Plasma 0.59 mg/dL 0.50-0.90 [facility] Glucose [Mass/volume] in Serum or Plasma 125 mg/dL 70-140 [facility] Alkaline phosphatase [Enzymatic activity/volume] in Serum or Plasma 105 U/L 35-104 H [facility] Potassium [Moles/volume] in Serum or Plasma 3.7 mmol/L 3.4-5.1 [facility] Protein [Mass/volume] in Serum or Plasma 8.7 g/dL 6.4-8.3 H [facility] Sodium [Moles/volume] in Serum or Plasma 131 mmol/L 136-145 L [facility] Aspartate aminotransferase [Enzymatic activity/volume] in Serum or Plasma 22 U/L <32 [facility] Urea nitrogen [Mass/volume] in Serum or Plasma 14 mg/dL 8-23 [facility] Osmolality of Serum or Plasma by calculation 273 mosm/kg 275-300 L [facility] Creatinine/Urea nitrogen [Mass Ratio] in Serum or Plasma 23 [facility] Bicarbonate [Moles/volume] in Serum 27 mmol/L 22-29 [facility] Alanine aminotransferase [Enzymatic activity/volume] in Seru m or Plasma 16 U/L <33 [facility] Anion gap 3 in Serum or Plasma 7 mmol/L 8-15 L [facility] Glomerular filtration rate/1.73 sq M pre dicted among non-blacks [Volume Rate/Area] in Serum or Plasma by Creatinine-based formula (MDRD) >6 0 [facility] Glomerular filtration rate/1.73 sq M pre dicted among blacks [Volume Rate/Area] in Serum or Plasma by Creatinine-based formula (MDRD) >60 [facility] ID Date Data Source [id number] 09/04/2020 04:42:34 PM T [facility] Name Value Range Interpretation Code Description Data Deepa rce(s) Supporting Document(s) Cancer Ag 125 [Units/volume] in Serum or Plasma 499 U/mL <38 H [facility] The CA 125 assay should not be used as a screening test to detect Cancer. Its use as an aid in the management of Ovarian Cancer has been reported. CA125 values obtained using different methodologies cannot be used interchangeably. This method is manufactured by [employer] and is an electrochemiluminesence immunoassay. ID Date Data Source [id number] 08/27/2020 01:18:04 PM EDT [facility] IR VASCULAR ACCESS INSERT OR REMOVALFINA L [...] Code Description Data Deepa e(s) Supporting Document(s) ID Date Data Source [id number] 08/27/2020 10:51:45 AM [facility] Name Value Range Interpretation Code Description Data Deepa rce(s) Supporting Document(s) Progress Note [facility] VTXQRt1cNpJLTfYd60/ZCCyoLCMui7HpCYkgZDs1OQyqLSAhF6SgXLX6fH6eHMT7ZJwROpIeMrKgYFQj lbm [file] AgICAgICAgICAgICAgICAgICAgICAgICAgICAgICAg CDPnZYAfMXDjMGGzQGDbRGHvFSGqTTHdYAGcPXXiKEFjQWOdXRCtYUQoLPDwWQAdBNRoNJGfGR3PUGWh ICAgICAgICAgICAgICAgICAgICAgICAgICAgICAgICAgICAgICAgICAgICAgICAgICAgICAgICAgICAg ICAgICAgICAgICAgICAgICAgICAgICAgICAgICAgIC BuUFApUH1ERPCdGNByHOGrOWFxWHPmOUTaVFJeABXyPRKwYOHnUAKrVDIdXJKhNSOrYPKiBWYkQCIpQR ZaMRYlQLExMJReDZAlMOMiENKsWYGvWPGdQGSeFPLkCNAdSFRuQFTeZVLfOJXqOV8IIFPxKTAwKVQnRW AgICAgICAgICAgICAgICAgICAgICAgICAgICAgICAg ISJyUFQcHMDvJKYnMCVcSCUkPJPtWBQzXJHmUEKsOVIcTXLwZDCwFDZeGUQhVPKnSEPdFDZrIFObPO7E ICAgICAgICAgICAgICAgICAgICAgICAgICAgICAgICAgICAgICAgICAgICAgICAgICAgICAgICAgICAg ICAgICAgICAgICAgICAgICAgICAgICAgICAgICAgIC EnVUOsZNVmGQ8QYXOeWFIjIVOaPLNnOLNtYHUuKTSmAWPmWUScDXWsBXMsJMClRTLrTMAdAKEgXNGoJK WwHFAkOPGzFTEgJBTpNQFhULFvPNRjQGHcTBXmFPIpTJNtNIGqWQQaHLUuGZFnVXQcAA1YBEBqJLJmWU AgICAgICAgICAgICAgICAgICAgICAgICAgICAgICAg ICAgICAgICAgICAgICAgICAgICAgICAgICAgICAgICAgICAgICAgICAgICAgICAgICAgICAgICAgICAg SX6VKTEuOVRnQAVvSTIhFSZyPPLjXBHrBMXxOYQiSOAvQITsDIHuPQMhCOKdWDQaUKMsZWJjUORpLJRq ICAgICAgICAgICAgICAgICAgICAgICAgICAgICAgIC XeERVrQCLrRVIwQW2FBMLyPUTlBRBjFSStRTCqEEBcDRMrNBTyKYHbBJLcNPFmMJGuFTIaPBSmFJMqCR QrLMZvBHSgMFDyFIIuYOOnPTXzZMOsWAGmFGWcUWFwAOQwKWBlCHCpCSRaDASsNFJpZVFzGI3WCW85dN Oae6N9ADAlDW9nncy/Sm7IQOpvjvXqjMDrTN0ATwHa WA8ubq8RCuMaAD0nfl2BYLpNMxPhS6G7zGLeHROzOQJUZkYxP06xGDztTp60MInyWXVqScQlOEv8Il6E ChHfG1vzWEOmQaA2HKVdSePiMDnwOM6Kb9PfhBHpQWq+Ti3VAK9tv5AkYJauBUUjAD9ojn7QHXcCRlXg X3XqfjF0YPC3GESrJp9WFZUpLVKkyFBwEMEiWNRNRa DtX9RoeW77RDUSIr2+KEdggsFkUqvQSlT6HLZve6CrNQi6HC4QDETsHIi5bVPoWFKvY6Zrb1NrPt23CL IwUpvpORTfuPIrVWYhUy0iXTetGt6hNLTvKJ7wKe2hVESbZBItQyXjZKTWUU4KBGZfQYUwhETeKCNzMW ORAF1LMJneCIH5FDFfmbKozIOdPGxcBV0FIEZhonFz MTQgMCBSDQo+Vz9WLI0pm9WgVLqmTwAfSZ2gep6WMQqDGaQiK9O6bOKyT7N2JMsgFs4UEGVbWMMgQNOr MXDYJHssNI1UAF1zymC2GP8QfJTiWKSmSDEdsERrVNu9H37oqOHvYHbtLX6HGZW+Justina+Bl9MJMYuYAVz JTKiVkSqHXTUWkJsG9YjY6KVv5FuP4QwJG39hOcfam NwPPkhYL6JJR0vRPKsZQUCPU0WtMPycM6xkzMxFPNhVMZJDdOyX59lvJGsBMTmCABvDLZwXm0CUCZwJ4 XrvhMilWzzqtPwYXCzSRJDYG5RDKvroiZbwVTodXloLO26xTktED1XZn5GEoWhBJ9oyz0AoQVrHr3APL XlYn4IDWJqNIUePGVcDZB8PHFqAfIfNNwjSWCgGUXj IYS8KUPkIDAsSO4WLhUpMURgURM3PDUeJTPfVYOuel0BHEDxUVIkSdN2RwOvJMMgCLFzSSquUVVdMDKe CJS3NQCnNSOeMU4FNfTaTJBjHOMcCSGfFJOuSGEmrk7KAVOzLMXcYrB1LkZiZNMpLVAiJOwePRQpOEVw WmT6PWAkIOFwZH7UEoCvRZGhRFP1XZUxRHKiJVOtne 7LSLTgVOIiSyA9DMDcLWQjDBSyOHxyZXZpKYY3YAU5IFQrNKXkMK2OLoWiNZIlOKD3BPEbNJLaKXOdun 9XLYZbPZSzIQunFLHvSTHgJAHqGWhdEZIsSAV3SpBwZCCpHOCbYZ0RYrGmPCReKUE1EoMwERIiAKPfki 9IWGEwEPHqXgk1OCOlGCQoZYKkMVktTPNuSWG6NGf2 PTNnARKaCQ7KOiUdCOfpPMZFMrq6FUmnO1o8YQVyLr1RU9Kug2OwVSEhYJRVGLimEO5sqnFvENRuQn8U I9nDMuy8GFUxWqBoOtO4YEWoYjU6EoqsYBJiYNv2DITyXWWnZQ5mKFB0JNDfGBLoYiwlCGT3ZKJyWYKu UtQ9EXd0PXIiTuPbWzQeOX2ZZt2MRlX6PII7rWJsPx6PTtLdHz8SRWOPD5BTJj== ID Date Data Source [id number] 08/27/2020 08:46:32 AM EDT [facility] Name Value Range Interpretation Code Description Data Deepa rce(s) Supporting Document(s) History and Physical [facility] EUUZCr8pZaWXFlRf14/KYOpiZAJjg5VlOYmfDAl7OXxcYDWcG2SvFTS6tF8qROL0IJmGTlSyGqZqALXu lbm [file] ThQUmlSfAfYn7GTKVAR1YBEl== ID Date Data Source [id number] 08/27/2020 07:37:01 AM EDT [facility] Name Value Range Interpretation Code Description Data Deepa rce(s) Supporting Document(s) Leukocytes [#/volume] in Blood by Automated count 9.2 10*3/uL 4-10 [facility] Erythrocytes [#/volume] in Blood by Automated count 4.40 10*6/uL 4.1- 5.3 [facility] Hemoglobin [Mass/volume] in Blood 11.1 g/dL 11.5-15.5 [facility] Hematocrit [Volume Fraction] of Blood by Automated count 34.4 % 3 6-45 L [facility] Erythrocyte mean corpuscular volume [Entitic volume] by Auto mated count 78.2 fL 80-96 L [facility] Erythrocyte mean corpuscular hemoglobin [Entitic mass] by Automated count 25.2 pg 27-33 [facility] Erythrocyte mean corpuscular hemoglobin concentration [Mass/volume] by Automated count 32.3 g/dL 32.0-36.0 [facility] E[facility] distribution width [Ratio] by Automated count 16.8 % 11.5-14.5 H [facility] Platelets [#/volume] in Blood by Automated count 67 10*3/uL 150-400 L [facility] Differential cell count method - Blood [facility] Neutrophils/100 leukocytes in Blood by Automated count 78 % [facility] Lymphocytes/100 leukocytes in Blood by Automated count 12 % [facility] Monocytes/100 leukocytes in Blood by Automated count 9 % [facility] Eosinophils/100 leukocytes in Blood by Automated count 1 % [facility] Basophils/100 leukocytes in Blood by Automated count 0 % [facility] Neutrophils [#/volume] in Blood by Automated count 7.17 10*3/uL 1.8-7 .0 H [facility] Lymphocytes [#/volume] in Blood by Automated count 1.13 10*3/uL 1.2-4 .0 L [facility] Monocytes [#/volume] in Blood by Automated count 0.78 10*3/uL 0-0.8 [facility] Eosinophils [#/volume] in Blood by Automated count 0.11 10*3/uL 0-0.5 [facility] Basophils [#/volume] in Blood by Automated count 0.02 10*3/uL 0-0.2 [facility] Nucleated erythrocytes/100 leukocytes [Ratio] in Blood by Automated count 0 /100{WBCs} 0-0 [facility] ID Date Data Source [id number] 08/25/2020 04:09:13 PM EDT [facility] Name Value Range Interpretation Code Description Data Deepa rce(s) Supporting Document(s) Progress Note [facility] IVALCe3iBzRBFoYq95/CUZgoUQPkn3HqXOndKLf0WTduLXDoV8XaKXB4vN2qWLG1ZNiWHtDsDhBbIKZv lbm VmVviLLgSaXGNsJmgMAdKkKHkvQzxkpIBmWQ9SfIF6YGGxG87oYWLbYGFqX7ZeCJZjLIE+Ll1LIHEbbW IrQD3COblG9H2bwos1Uu8geB+BQIEiuYjlfT+GlcRvL0sYsMOnS46z7gf3jZB1Y6jhTLgkc487QJrC09 RNsfwmfE8UIzPskfzXF68Hp3IY1Z/+g9llh5mIec+7 +DnJP5zpkq56S9Vr7vvVHcz/hwyhZ8bVvCK6HEvfu5/36GIgni2CLskE4w+cvlmBOE3hbx0W8z9y6Ysz 3As1YyMJz+tUxgo3tHFgRV+9ALw5tznW0B6Rn/hrg8tYlwX36rXqYFYBPnRr31voNio8JAeyrUaBkyz7 0UH7/tQYtQ5PmprBWR/3kwCiXChB76LP6AQjv6FHkI vtP+jhqNg7kmJIjPYTYxEh22rhJRR/F6ks01OcDc+d92b6j40WSkgP5pFsOOJ7Ic3b+tbjdrb8rgFXE4 +hwMfHOnAkrjBXEdcEfxOVqrxYiLe6R40izknYFy0O4B7ER1BAx+ysKFZTPU6/m+Qh9kPHZT3jaYeKcY Ho1IuVS3mfBzyoaNxjiuMW1hDrhw033lOk031OnPO0 bvnk++CANln8U5igT0O8wRe+5mWvYwGFt2KmSEjAX3bmkCcs77Op1J+jGvuN4b5QfW5htHgA+0GZ95er d1IMNg65Qhox6q3HdLdv+InWsm/pENkg+qePMawGXfFpuBpqd1OmkChTYMMOq6i/QtY7NNeSzOrvZkWs iIwCtBzooUQTc3LL59N6Yj1G4/u4yfqb3dEbdCVnr6 NBsuWQTgHAIcrkbz0GWdgyI50L8+UtL1jAblK5inqr28YdVQ3Mm9J09JhFFYzUWl5POkRmlao2EfY5Zh pItHJelIKwSVyp+yfWBZSWGsyBdseSQDYpbYCG6hGQqdaKvS7LmMm6ID29w8Y/W8SlhbsLaL39Pa/Vn1 V/lB53yF6CxAV1YZy9w2DunUnW2hBiy41JjygCg2LA 1+UXIoFEysxQ5Q4cL7WIxJJX16IkBa6u6dLmv/OEON6ELnP3XetCpuJXak0YQGOdwrfCxrfQKsTPK/Aeronautical Engineering Officer PCj+qYwmZsaDmU2Qp4AOsMdeTvf2Ib6qL4nGOnIYuCtMh5Y6dmVBTynkNzeWvbpETHYx4Zt3gyhyTbh5 7WYdzLAVnPiAFr/QImtMZ/CThVcFgVovakG1EXdXlu 9fxk3eRGpSDF2FOpAzFwadp4jKvtPPe0qodkPutIikRmKgjoBylFYvAsTgoaU/fOw4URv5tfYx0K/jWr 52K8r3pYfo6XNtzgA5GysIZaeme1pLE2JqnxL9Y2jIPrApwrCfj+fcx9KoV+ev/9Q2S13fA0DtvHvU0o 1zzxnNGKvmeTws4SP4JwhCj6Btki2Dm5rpqvB/Clari [file] q9K8IpSOOvSkppEMK5OYKtFiCaRtPdUBq+IF0gDQ o+Ye4Bk2FuarK7sbXlDAy6HAbxOr5MISFWG8WDEx== ID Date Data Source [id number] 08/25/2020 11:04:23 AM EDT [facility] Name Value Range Interpretation Code Description Data Deepa rce(s) Supporting Document(s) Albumin [Mass/volume] in Serum or Plasma by Bromocresol green (BCG) dye binding method 4.1 g/dL 3.5-5.2 [facility] Bil[facility].total [Mass/volume] in Serum or Plasma 0.2 mg/dL <1.2 [facility] Calcium [Mass/volume] in Serum or Plasma 10.5 mg/dL 8.8-10.2 H [facility] Chloride [Moles/volume] in Serum or Plasma 101 mmol/L 98-107 [facility] Creatinine [Mass/volume] in Serum or Plasma 0.71 mg/dL 0.50-0.90 [facility] Glucose [Mass/volume] in Serum or Plasma 114 mg/dL 70-140 [facility] Alkaline phosphatase [Enzymatic activity/volume] in Serum or Plasma 136 U/L 35-104 H [facility] Potassium [Moles/volume] in Serum or Plasma 3.7 mmol/L 3.4-5.1 [facility] Protein [Mass/volume] in Serum or Plasma 8.2 g/dL 6.4-8.3 [facility] Sodium [Moles/volume] in Serum or Plasma 137 mmol/L 136-145 [facility] Aspartate aminotransferase [Enzymatic activity/volume] in Serum or Plasma 32 U/L <32 H [facility] Urea nitrogen [Mass/volume] in Serum or Plasma 11 mg/dL 8-23 [facility] Osmolality of Serum or Plasma by calculation 284 mosm/kg 275-300 [facility] Creatinine/Urea nitrogen [Mass Ratio] in Serum or Plasma 15 [facility] Bicarbonate [Moles/volume] in Serum 29 mmol/L 22-29 [facility] Alanine aminotransferase [Enzymatic activity/volume] in Seru m or Plasma 23 U/L <33 [facility] Anion gap 3 in Serum or Plasma 7 mmol/L 8-15 L [facility] Glomerular filtration rate/1.73 sq M pre dicted among non-blacks [Volume Rate/Area] in Serum or Plasma by Creatinine-based formula (MDRD) 89 mL/min/1.73m2 >60 [facility] Glomerular filtration rate/1.73 sq M pre dicted among blacks [Volume Rate/Area] in Serum or Plasma by Creatinine-based formula (MDRD) >60 [facility] ID Date Data Source [id number] 08/25/2020 11:44:39 AM EDT [facility] Name Value Range Interpretation Code Description Data Deepa rce(s) Supporting Document(s) Leukocytes [#/volume] in Blood by Automated count 12.1 10*3/uL 4-10 H [facility] Erythrocytes [#/volume] in Blood by Automated count 4.60 10*6/uL 4.1- 5.3 [facility] Hemoglobin [Mass/volume] in Blood 11.3 g/dL 11.5-15.5 L [facility] Hematocrit [Volume Fraction] of Blood by Automated count 36.1 % 3 6-45 [facility] Erythrocyte mean corpuscular volume [Entitic volume] by Auto mated count 78.6 fL 80-96 L [facility] Erythrocyte mean corpuscular hemoglobin [Entitic mass] by Automated count 24.5 pg 27-33 L [facility] Erythrocyte mean corpuscular hemoglobin concentration [Mass/volume] by Automated count 31.2 g/dL 32.0-36.0 [facility] E[facility]th[facility] distribution width [Ratio] by Automated count 16.3 % 11.5-14.5 H [facility] Platelets [#/volume] in Blood by Automated count 150-400 [facility] Notified Joyce WILSON APC at 1143 b y 1689 Differential cell count method - Blood [facility] Neutrophils/100 leukocytes in Blood by Automated count 73 % [facility] Lymphocytes/100 leukocytes in Blood by Automated count 18 % [facility] Monocytes/100 leukocytes in Blood by Automated count 6 % [facility] Neutrophils [#/volume] in Blood by Automated count 8.83 10*3/uL 1.8-7 .0 H [facility] Lymphocytes [#/volume] in Blood by Automated count 2.18 10*3/uL 1.2-4 .0 [facility] Monocytes [#/volume] in Blood by Automated count 0.73 10*3/uL 0-0.8 [facility] Band form neutrophils/100 leukocytes in Blood by Manual count 3 % [facility] Band form neutrophils [#/volume] in Blood by Manual count 0.36 10*3 /uL 0-0.6 [facility] Anisocytosis [Presence] in Blood by Light microscopy [facility] Microcytes [Presence] in Blood by Light microscopy [facility] Toxic granules [Presence] in Blood by Light microscopy [facility] ID Date Data Source [id number] 08/24/2020 12:21:41 PM EDT [facility] Name Value Range Interpretation Code Description Data Deepa rce(s) Supporting Document(s) Progress Note [facility] JHTYHi5mYoELKpWm50/XXVtgXCSht4YfILblCZi7BNltUACmT8ApIXB8cV5zRKV6DEyECtBoNqYaJNG1 lbm [file] service order taker+XMUWDNcKRa5OozTPq9BQqZrOURyq3izJgDlbtMxV3/L14FdpM5QjDkNiATVviX2NIU90W34sDfBY [file] XpUSGqOpLgGdEzJqGkKV9LVj8SPqB3OON3aZTsKv9RTBh4MUYTVjPiXN6PSUh= ID Date Data Source [id number] 08/24/2020 12:21:00 PM EDT [facility] Name Value Range Interpretation Code Description Data Deepa rce(s) Supporting Document(s) SARS-CoV-2 RNA 2019 nCoV Real-Time RT-PCR: NOT DETECTED [facility] This lab was ordered by [facility] and reported by [facility]. ID Date Data Source [id number] 08/24/2020 08:52:34 PM EDT [facility] Name Value Range Interpretation Code Description Data Deepa rce(s) Supporting Document(s) Specimen source [Identifier] of Unspecified specimen [facility] SARS-CoV-2 RNA 2019 nCoV Real-Time RT-PCR: NOT DETECTED [facility] Assay Performed 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 [facility] Patient has symptoms related to [facility] When did you start to experience these symptoms [Date and time] [Phen X] [facility] Patient was hospitalized because of this condition [facility] patient was admitted to ICU for [facility] Patient resides in a congregate care setting [facility] status [facility] ID Date Data Source [id number] 08/14/2020 03:30:12 PM EDT [facility] IR IMAGE GUIDED NEEDLE DRAIN PROCEDUREFI [...] Data Source [id number] 08/14/2020 11:52:00 AM EDT [facility] Name Value Range Interpretation Code Description Data Deepa rce(s) Supporting Document(s) SARS coronavirus 2 RdRp gene Negative [facility] This lab was ordered by [facility] and reported by [facility]. ID Date Data Source [id number] 08/14/2020 12:04:20 PM EDT [facility] Name Value Range Interpretation Code Description Data Deepa rce(s) Supporting Document(s) SARS coronavirus 2 RdRp gene Negative [facility] Test performed using the [employer] ID NOW C OVID-19 assay. This test is only for use under the Food and Drug Administration's Emergency Use Authorization. 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 [facility] Patient has symptoms related to [facility] When did you start to experience these symptoms [Date and time] [Phen X] [facility] Patient was hospitalized because of this condition [facility] patient was admitted to ICU for condition [facility] Patient resides in a congregate care setting [facility] status [facility] ID Date Data Source [id number] 08/13/2020 12:25:33 PM EDT [facility] Name Value Range Interpretation Code Description Data Deepa rce(s) Supporting Document(s) Progress Note [facility] OIRLMx2gOkACOsVq76/GDTrdAPZou4BjNFiqZRs3JGamWNYxU8LwMGH1yN4pHNT0VFgMJgTyXiPhZXQ2 lbm [file] TwPzNQMiBvXhES0XPy3HXfP5LPF7kSUbHt4UKnFsNPMPPoZxVQ7JRCu= ID Date Data Source [id number] 08/07/2020 12:21:46 PM EDT [facility] Name Value Range Interpretation Code Description Data Deepa rce(s) Supporting Document(s) Progress Note [facility] BCWZFu4nRmUJIbMu69/BVSovAHEzy6YvRLicLSi5CXcpAHPcH9YeGSN5cY1qHHU4JNrBAsLxMtVjSYVs lbm [file] FINANCIAL HEALTH COUNSELOR/4BXchmtEOEaaBCQNUXn7fRODzCyVM+nWrtgGL9Tlk5dT1Q8tbNc4U1b86hWkWRLtQaq0MNBYrXfiw [file] ICAgICAgICAgICAgICAgICAgICAgICAgICAgICAgIC AgICAgICAgICAgICAgICAgICAgICAgICAgICAgICAgICAgICANCiAgICAgICAgICAgICAgICAgICAgIC AgICAgICAgICAgICAgICAgICAgICAgICAgICAgICAgICAgICAgICAgICAgICAgICAgICAgICAgICAgIC AgICAgICAgICAgICAgICAgICANCiAgICAgICAgICAg ICAgICAgICAgICAgICAgICAgICAgICAgICAgICAgICAgICAgICAgICAgICAgICAgICAgICAgICAgICAg ICAgICAgICAgICAgICAgICAgICAgICAgICAgICANCiAgICAgICAgICAgICAgICAgICAgICAgICAgICAg ICAgICAgICAgICAgICAgICAgICAgICAgICAgICAgIC AgICAgICAgICAgICAgICAgICAgICAgICAgICAgICAgICAgICAgICANCiAgICAgICAgICAgICAgICAgIC AgICAgICAgICAgICAgICAgICAgICAgICAgICAgICAgICAgICAgICAgICAgICAgICAgICAgICAgICAgIC AgICAgICAgICAgICAgICAgICAgICANCiAgICAgICAg ICAgICAgICAgICAgICAgICAgICAgICAgICAgICAgICAgICAgICAgICAgICAgICAgICAgICAgICAgICAg ICAgICAgICAgICAgICAgICAgICAgICAgICAgICAgICANCiAgICAgICAgICAgICAgICAgICAgICAgICAg ICAgICAgICAgICAgICAgICAgICAgICAgICAgICAgIC AgICAgICAgICAgICAgICAgICAgICAgICAgICAgICAgICAgICAgICAgICANCiAgICAgICAgICAgICAgIC AgICAgICAgICAgICAgICAgICAgICAgICAgICAgICAgICAgICAgICAgICAgICAgICAgICAgICAgICAgIC AgICAgICAgICAgICAgICAgICAgICAgICANCiAgICAg ICAgICAgICAgICAgICAgICAgICAgICAgICAgICAgICAgICAgICAgICAgICAgICAgICAgICAgICAgICAg ICAgICAgICAgICAgICAgICAgICAgICAgICAgICAgICAgICANCiAgICAgICAgICAgICAgICAgICAgICAg ICAgICAgICAgICAgICAgICAgICAgICAgICAgICAgIC AgICAgICAgICAgICAgICAgICAgICAgICAgICAgICAgICAgICAgICAgICAgICANCjw/zFLvH0knoRHenc J9W6zxIn7QMo7IUL0rh3PmEADcHUeygoFvNkiKYsDkIPPkAlbJAjn5ZEeiWU8FtPLuL4ZfE7VuMJrpEE 8YYWAsURQixEVkKVDsDZNmTyK1KIAuJYkzWH9YkNRk NFnoUSOmKBDoSkVcMSYzEGPxXGBgYU7WCLOpH001bkKvUy7KNf7UKfKhRK3vgm0OZvOtITUpRzcWUey8 COczVS9WlKNqoVJeWeFsDPJOCmZlH9jps9RrHwqtPYJQMRydYU6Lg1IqjEBhYMw+Wx4WYD2xz6MzLVmd SiUhCB8dyw8WWLoWAuHpF1NlgOnzNLSsn1srORNzHN 1agVEiWVD1MDDktM8wDUCsz99jmGtaAFKpSOGbQX9wOwPgGhBaSLd3BNQwHK6hPEbhVA2HEWH8OKtgBB GcVDLqI9hKUuJrTDWuMACnwWzrRE2RCjUrS8HxutHxlGLrCoLvFMOINf9+ZRefkxNrXsyZSkD5RSZet8 UvGQi2GT3QCHDyJRypSX3GFXNahV9hSMwaDL8FFzBa UOSmPFMDApFzJ81qoIUuQMg1L8IqCmGkXLCnJlffTAIrQVmdZnWzGHNdYwBjYOxiUF6+ID4+LUkhBS0H LFtnjkFpQPKdDf2MEGKbMOKcNT1lXFQyFFHhZ9D2zDxgOEVNPbItP6axfynhFZ4iRCOtY452tItmlwBk VOB9TUVrKs0FNSVzFVB0TBBleSGcNmRyAAGOMCkpMK 6GdERpTYC5mZ6bFKpbXJCqLXLuG0gNYhFilOqwFZ06pAbeqjQrzBHxXTs+Cv2GLK2st2TyFFt3aeBmHA yzHHX4OMngLUIrQSIaZDOsQTO8SHA1DPKWJmDhJQUdOXJpQZveBQYfTMZuui2FOXLsAOXfWSt7GhMeTC GaYJXbXKdbDIHvVAB8UNOpMKNsJSVvZR7IViUyLWCg RSPrOQxvEVJsKRJhnu0VCBYdFCYaCDorEAKhAOGbLTQpDWptAEMhYGD4EKItSAIqABGxPW7CKuGbZHCd MPsyGoRaGUSyOAXnmw9ESIWpRJKfHVBxLEKbYAQzABHmEHboLAPuAER7WwR0FOFpLUMzIS1WGrLeUFFp PCu5OUunWPBcSKJtaa5TSGSoNDOpQLC0DPKzCMDpNA QaHBriLHLnRZIhZWC7UVNvBKTjCI2CPnDdHLSdDQT8NAlyALYeRLIbwp6HRYDiYLOdXIrkJSXbJKFaUN LdDEamKTNyNJTaMANlJUIpPJLvKM4AYgRxNPUhLCUcTMflVAEvXFCbhi2SPJBgEULcOaTcRLEhBTIqNJ JaNBxqXGBcYVBqFCZqZFQkLBIiGB6UPjEgQGNkZzXn SwTrMDXvELMdxe2PVPTiIYAcSUZuJjHtACDwWOYhSXdtNOPhVRS6VMI5NMEnIOUcQT8MAeGgKYJiVmU8 HPOdGSHqZKNeqs1XMHGmSPAhMIK1YbFgLSBiAJXfMBnnFWHcDES9KkY7STMkAEOtLF0QKmMpCWRvLkNl CgXtTLRwRJIudx7RXVOrTKTrWmOkMLUwSWYsVHSnPN wvOGKxRSR1EzlgHVHvZZYqHZ3ZLjFnJYKmUca5UuczOGUiMFYwwu6JqKLfvJpadk2KPOfXAl3WbIobLO Z5BGzcLy9brSWsJZVzIXQQBd9VlnZqRMAmNXJDUKzsTPTcNUYrWFE0YLJpSGAlSZL8AIBwIke5WKB9Sr R3MDRuNDBsJqD4ERF9GRLbFUB4I5Y1FslfDqXxGEnm EPtnJXZ7THB1HCV+OZ4mZFh+Ai6Yz1UbeuQ7xgYkNCmvZGP9Nc5GTFZBD0LVUn== ID Date Data Source [id number] 08/07/2020 10:58:55 AM EDT [facility] Name Value Range Interpretation Code Description Data Deepa rce(s) Supporting Document(s) Progress Note [facility] TGQKRr9mRpDSOfNk30/FTYnpDMFvs9QxTThnOUs2VKohWGNrG0TiHPL6pV7iEBE7ABmNPiKuXrAjDBSb lbm [file] FLOR/h8IizXIKMJ3oyEFoL5783G5EOYE1mTIomH1mfcs IxmkTKJdHSTsGrfLsjSANAuKP630q3zmvH2ZdJXarNT82bxJaH4ifejUAoF/VDaT5I8dcjf1omgOXvz2 qSqryUFBQliQphcnC85gtKWWS8vVdef76Gu/kJmVCwzwCf8VDJeBrAfTr56G01yeS89b1d6oUAd1QQtH G2AycqOZYN9/[employer]+jBdL9h4DM+tnbWYZO+40rfmycg0 [file] Ot/Graham+QAk2+5hvS/LrOj2696X8q+MkXF7HcaC7hv0YfDeO4HbTAbDG5xGvjx3jQjOHAhiZIVMNLy6E6 pI8WZJOuYw4k+z4+teTKZZoK7CZicFryB4M/UOLRWziQJaOpMbZ/tCf5wxvx0hSLL5PXLBJASCwO700S MkhZ8GxpNQLntzWUVUvbDZsMbXyRhkFmnokYyv1bwz zhGa9s4Nng1vGqW8MgIBPiZ7FySZiiEGb5QvmaH5OkdIK3L0lJCCc26DW1mnSu2NvNIRMbPXc+lgyleb a5uXl/kwGwHJ1qRogCipt/YBPEF2rfP9gdz47FTulH4Nznxv5e5ffli26dcvW/zat9lqnRu8/BOjnsFL qcmZEusbARUINW9zdKa5oAJsKDhFOAQ4Z5gX2uQZAB g4C7M3vhKbD3dNSKVTyHTixsCLXFI2XzagnVwoLp+P8LmEO0eb/xoDVLuKqLxg9rmZ6gXwSC2hoKKg9S gxNf8IP+Va1rOUF+GEBndURvRn8Km+Y2tF7sE8O46JvqbPuiHoVzwUyyQa0tlj5LDwn+nmSrpUXQZLuB 7O6NZkzlecsIyCw3B1LK3yZhWrSTg5L2K8sQjrH4pm Ft7ZogJMgvUswRf66KQDpPyeo1hUx3LE53MmUOJA8pjZa/hwYr8SaJjmH3IjPnx8h6mk8vhx7fW/Carlos A [file] [id number]+HOiveUEpdNiiHAHWNyS0QGOiZScbCGPJTj8E ID Date Data Source [id number] 08/07/2020 11:43:35 AM EDT [facility] Name Value Range Interpretation Code Description Data Deepa e(s) Supporting Document(s) Leukocytes [#/volume] in Blood by Automated count 7.6 10*3/uL 4-10 [facility] Erythrocytes [#/volume] in Blood by Automated count 4.85 10*6/uL 4.1- 5.3 [facility] Hemoglobin [Mass/volume] in Blood 12.0 g/dL 11.5-15.5 [facility] Hematocrit [Volume Fraction] of Blood by Automated count 38.2 % 3 6-45 [facility] Erythrocyte mean corpuscular volume [Entitic volume] by Auto mated count 78.8 fL 80-96 L [facility] Erythrocyte mean corpuscular hemoglobin [Entitic mass] by Automated count 24.8 pg 27-33 L [facility] Erythrocyte mean corpuscular hemoglobin concentration [Mass/volume] by Automated count 31.5 g/dL 32.0-36.0 [facility] distribution width [Ratio] by Automated count 15.9 % 11.5-14.5 H [facility] Platelets [#/volume] in Blood by Automated count 453 10*3/uL 150-400 H [facility] Differential cell count method - Blood [facility] Neutrophils/100 leukocytes in Blood by Automated count 74 % [facility] Lymphocytes/100 leukocytes in Blood by Automated count 15 % [facility] Monocytes/100 leukocytes in Blood by Automated count 8 % [facility] Eosinophils/100 leukocytes in Blood by Automated count 2 % [facility] Basophils/100 leukocytes in Blood by Automated count 1 % [facility] Neutrophils [#/volume] in Blood by Automated count 5.66 10*3/uL 1.8-7 .0 [facility] Lymphocytes [#/volume] in Blood by Automated count 1.11 10*3/uL 1.2-4 .0 L [facility] Monocytes [#/volume] in Blood by Automated count 0.64 10*3/uL 0-0.8 [facility] Eosinophils [#/volume] in Blood by Automated count 0.13 10*3/uL 0-0.5 [facility] Basophils [#/volume] in Blood by Automated count 0.06 10*3/uL 0-0.2 [facility] Nucleated erythrocytes/100 leukocytes [Ratio] in Blood by Automated count 0 /100{WBCs} 0-0 [facility] ID Date Data Source [id number] 08/07/2020 11:57:34 AM [facility] Value Range Interpretation Code Description Data Deepa rce(s) Supporting Document(s) aPTT in Platelet poor plasma by Coagulation assay 27.9 s 24.0-33. 0 [facility] ID Date Data Source [id number] 08/07/2020 11:57:34 AM [facility] Value Range Interpretation Code Description Data Deepa rce(s) Supporting Document(s) Prothrombin time (PT) 13.4 s 12.5-14.9 [facility] INR in Platelet poor plasma by Coagulation assay 1.01 [facility] Routine intensity oral anticoagulation I NR is typically 2.0-3.0. Target INR must be clinically individualized. ID Date Data Source [id number] 08/07/2020 12:08:48 PM [facility] Value Range Interpretation Code Description Data Deepa rce(s) Supporting Document(s) Albumin [Mass/volume] in Serum or Plasma by Bromocresol green (BCG) dye binding method 3.4 g/dL 3.5-5.2 [facility] Bilirubin.total [Mass/volume] in Serum or Plasma 0.5 mg/dL <1.2 [facility] Calcium [Mass/volume] in Serum or Plasma 10.7 mg/dL 8.8-10.2 H [facility] Chloride [Moles/volume] in Serum or Plasma 99 mmol/L 98-107 [facility] Creatinine [Mass/volume] in Serum or Plasma 0.75 mg/dL 0.50-0.90 [facility] Glucose [Mass/volume] in Serum or Plasma 102 mg/dL 70-140 [facility] Alkaline phosphatase [Enzymatic activity/volume] in Serum or Plasma 97 U/L 35-104 [facility] Potassium [Moles/volume] in Serum or Plasma 4.7 mmol/L 3.4-5.1 [facility] Protein [Mass/volume] in Serum or Plasma 8.0 g/dL 6.4-8.3 [facility] Sodium [Moles/volume] in Serum or Plasma 133 mmol/L 136-145 L [facility] Aspartate aminotransferase [Enzymatic activity/volume] in Serum or Plasma 16 U/L <32 [facility] Urea nitrogen [Mass/volume] in Serum or Plasma 13 mg/dL 8-23 [facility] Osmolality of Serum or Plasma by calculation 276 mosm/kg 275-300 [facility] Creatinine/Urea nitrogen [Mass Ratio] in Serum or Plasma 17 [facility] Bicarbonate [Moles/volume] in Serum 25 mmol/L 22-29 [facility] Alanine aminotransferase [Enzymatic activity/volume] in Seru m or Plasma 7 U/L <33 [facility] Anion gap 3 in Serum or Plasma 9 mmol/L 8-15 [facility] Glomerular filtration rate/1.73 sq M pre dicted among non-blacks [Volume Rate/Area] in Serum or Plasma by Creatinine-based formula (MDRD) 87 mL/min/1.73m2 >60 [facility] Glomerular filtration rate/1.73 sq M pre dicted among blacks [Volume Rate/Area] in Serum or Plasma by Creatinine-based formula (MDRD) >60 [facility] ID Date Data Source [id number] 08/07/2020 05:02:07 PM EDT [facility] Name Value Range Interpretation Code Description Data Deepa rce(s) Supporting Document(s) Cancer Ag 125 [Units/volume] in Serum or Plasma 1071 U/mL <38 H [facility] The CA 125 assay should not be used as a screening test to detect Cancer. Its use as an aid in the management of Ovarian Cancer has been reported. CA125 values obtained using different methodologies cannot be used interchangeably. This method is manufactured by [employer] and is an electrochemiluminesence immunoassay. ID Date Data Source [id number] 07/23/2020 04:00:00 PM EDT [facility] Name Value Range Interpretation Code Description Data Deepa rce(s) Supporting Document(s) Follow Up [facility] DCSNPm6pYdIFRwIuXHZkGijAWPjbTNiuEUHvM7C6BAlgKn8GDAvbfbJhDVMnUc6+BBFqYN4iju1eNFKc gMy [file] U+rYUq5G5Q+[facility]/bSyGbU2/Pj2TS/y2zx0AQpVDekmwMrhi7q8nx974BwkP5wSb4JHd2Erd6+GtjAoC [file] PonTm3QK25RbSd/rrXbX6E9zEqV6RX8jf0IhMwefDhRZFbME9OztO/mRBt3vtO1qLHObBYRYovY+G/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 [file] HEALTH COUNSELOR/8yxunO [file] 6DGdLcmmHH6y3e+ILu1yJ+Hypu3Yg5SdXt5hM3SnZq4UDVZHas0QTlf65YchjFNcgAdKTS+PERIODICALS LIBRARY ASSISTANT+aO2Af0 [file] cfE7XdtyWquuJhvjnF1AgV4VMEqsivqW4z/Adam/16CluQqEy/YzT17xdgGyh7pcDC65Y7fYGnuvw43eEG BUpEMVEsRZUPpUnEuGFg03fYdWAVRnsgaB5iZRHg2v eFY0jFh+xUuukh+CLWubkfL/YhSM+57vInskuvbROx7t05brRb+mRE+cUJE6I1RNt5Yz3Vc4gzkDmqkc 5pW5D4URYpO+D3wZZBNvB0Iha1S4Id86CBiEoImfFYcOv+/Gps0IeWnyvoG1TqKTKxiJIwLLeTQNvUPF f7NfNXlb585b+ShPa9xejgOjrg+PmDyfpwwAtmh+[employer] [file] uPvT+KO+hSQyaKDly/product development+tjFLlO1bH+4BP8IT7X/g2e20mHAMi2Ts19Ld6oDGDBXfr3sRvpP0089eNg [file] PERIODICALS LIBRARY ASSISTANT+Cd1BGC/tLwRzywL0s/c0o3oK5MMrpwJpFEpMCl8U+wt7b4146qFr296cN/eCgWoZnYZn7AMTaomaf [file] dwutvdy48N+m+structural steel worker apprentice+pm0G0vvSznxRW43otKStbr+0R [file] TI18AJaGInJiFNL0xmQcgT9MNJ7dm5PwPY6Uv9XiwiU9gtJnCUq9DQRjNEUXAnVeJO6Q ID Date Data Source [id number] 07/23/2020 09:54:00 AM EDT [address] [place] [address] PHONE: [phone] FAX: [phone] Name .................. : JOSE R BUNCH Kim Acct Number.................. : [id number] ROOM. ................. : Number ................... : [id number] Stay type ............. : O/P Discharge Date......... ... : 07/22/20 Admit Date ......... : 07/22/20 Admit Phys .................... : WILTON Sandoval Date of ....... : 1955 Family Phys ................... : WILTON Sandoval Phone .................. : [phone] Age ................................ : 64 Film# .................. .:[id number] Sex ................................. : F Unsigned transcriptions are preliminary reports and do not represent a medical or legal document CT ABD & PELV W/ORAL/IV CONTR [id number] COMPLETE:07/22/20 10:13 [facility] 6447 (REASON FOR ABDOMEN: ABD PAIN AND [...] of the liver. Page 1 of [address] [place] [address] PHONE: [phone] FAX: [phone] Name .................. : JOSE R BUNCH Kim Acct Number.................. : [id number] ROOM. ................. : MR Number ................... : [id number] Stay type ............. : O/P Discharge Date......... ... : 07/22/20 Admit Date ......... : 07/22/20 Admit Phys .................... : WILTON Sandoval Date of ....... : 1955 Family Phys ................... : WILTON Sandoval Phone .................. : [phone] Age ................................ : 64 Film# .................. .:[id number] Sex ................................. : F Unsigned transcriptions are preliminary reports and do not represent a medical or legal document CT ABD & PELV W/ORAL/IV CONTR [id number] COMPLETE:07/22/20 10:13 [facility] 6447 (REASON FOR ABDOMEN: [...] for: WILTON AGEE via fax Copy for: [facility] Page 2 of 2 Name Value Range Interpretation Code Description Data Deepa rce(s) Supporting Document(s) ID Date Data Source [id number] 07/22/2020 02:44:00 PM EDT [facility] ([facility] Name Value Range Interpretation Code Description Data Deepa rce(s) Supporting Document(s) Cea 0.6 ng/mL 0.0-4.7 [facility] ([facility] <content>Nonsmokers <3.9</felicia nt>
<content>Smokers <5.6</content>
<content>[employer] Electrochemiluminescence Immunoassay</content>
<content>(ECLIA)</content>
<content>Values obtained with different assay methods or kits</content>
<content>cannot be used interchangeably. Results cannot be</content>
<content>interpreted as absolute evidence of the presence or</content>
<content>absence of malignant disease.</content>
<content></content> Cancer Ag 125 [Units/volume] in Serum or Plasma 1062.0 U/mL 0.0-38.1 Above high normal [facility] ([facility] [employer] Electrochemiluminescen ce Immunoassay (ECLIA) Values obtained with different assay methods or kits cannot be used interchangeably. Results cannot be interpreted as absolute evidence of the presence or absence of malignant disease. Rgvnv-0-Ckatbyovwqs [Mass/volume] in Serum or Plasma 2.7 ng/mL 0.0-8 .3 [facility] ([facility] [employer] Electrochemiluminescen ce Immunoassay (ECLIA) Values obtained with different assay methods or kits cannot be used interchangeably. Results cannot be interpreted as absolute evidence of the presence or absence of malignant disease. This test is not interpretable in females. ID Date Data Source [id number] 07/22/2020 02:44:00 PM EDT [facility] ([facility] Name Value Range Interpretation Code Description Data Deepa rce(s) Supporting Document(s) Laboratory test finding (navigational concept) 7 U/mL 0-35 [facility] ([facility] [employer] Electrochemiluminescen ce Immunoassay (ECLIA) Values obtained with different assay methods or kits cannot be used interchangeably. Results cannot be interpreted as absolute evidence of the presence or absence of malignant disease. PDF Laboratory test result [facility] ([facility] ID Date Data Source [id number] 07/09/2020 09:29:00 AM EST [facility] ([facility] Name Value Range Interpretation Code Description Data Deepa rce(s) Supporting Document(s) Creat 0.7 mg/dL 0.5-1.0 [facility] CHRONIC KIDNEY DISEASE STAGING PER [...] 7 mg/dL 8-23 Below low normal [facility] ([facility] CHRONIC KIDNEY DISEASE STAGING [...] >32 mL/min Normal Glu 89 mg/dL 70-110 [facility] ([facility] CHRONIC KIDNEY DISEASE STAGING PER [...] mmol/L 136-145 Below low normal [facility] ( [facility] CHRONIC KIDNEY DISEASE [...] mL/min Normal K 4.5 mmol/L 3.5-5.1 [facility] CHRONIC KIDNEY DISEASE STAGING PER [...] mL/min Normal BUN/Creatinine Ratio 9.6 Calc [facility] ([facility] CHRONIC KIDNEY [...] CA 10.5 mg/dL 8.6-10.2 Above high normal [facility] ([facility] CHRONIC KIDNEY [...] mL/min Normal Co2 25.5 mmol/L 22.0-29.0 [facility] ([facility] CHRONIC KIDNEY DISEASE [...] >32 mL/min Normal CL 100.4 mmol/L 98.0-107.0 [facility] ([facility] CHRONIC KIDNEY DISEASE STAGING PER [...] mL/min Normal TP 7.3 g/dL 6.6-8.7 [facility] CHRONIC KIDNEY [...] mL/min Normal Alp 99.2 U/L 35-129 [facility] CHRONIC KIDNEY DISEASE [...] mL/min Normal A/G Ratio 0.8 Calc [facility] ([facility] CHRONIC KIDNEY [...] Normal Alt (SGPT) 9 U/L 0-41 [facility] CHRONIC KIDNEY [...] mL/min Normal Tbili 0.72 mg/dL 0.0-1.2 [facility] ([facility] CHRONIC KIDNEY DISEASE [...] Normal Ast (Sgot) 15 U/L 0-40 [facility] ([facility] CHRONIC KIDNEY DISEASE STAGING PER NKF: [...] mL/min Normal Anion Gap 13 mmol/L [facility] ([facility] CHRONIC KIDNEY [...] mL/min Normal Osmolality-Calculated 266.7 Calc [facility] ([facility] CHRONIC KIDNEY DISEASE [...] and above >32 mL/min Normal eGFR Non-Afr. Tanzanian 90 # [facility] ([facility] CHRONIC KIDNEY DISEASE [...] >32 mL/min Normal ID Date Data Source [id number] 07/09/2020 09:28:00 AM EST [facility] ([facility] Name Value Range Interpretation Code Description Data Deepa rce(s) Supporting Document(s) Thyrotropin [Units/volume] in Serum or Plasma 4.504 ulU/mL 0.60-4.8 [facility] ([facility] ID Date Data Source [id number] 07/09/2020 09:27:00 AM EST [facility] ([facility] Name Value Range Interpretation Code Description Data Deepa rce(s) Supporting Document(s) Calcium [Mass/volume] in Serum or Plasma 10.6 mg/dL 8.7-10.3 Above high normal [facility] ([facility] Intact PTH Laboratory test result [place] [facility] ([facility] <content>Interpretation Intact PTH Calcium</content>
<content>(pg/mL) (mg/dL)</content>
<content>Normal 15 - 65 8.6 - 10.2</content>
<content>Primary Hyperparathyroidism >65 >10.2</content>
<content>Secondary Hyperparathyroidism >65 <10.2</content>
<content>Non-Parathyroid Hypercalcemia <65 > 10.2</content>
<content>Hypoparathyroidism <15 < 8.6</content>
<content>Non-Parathyroid Hypocalcemia 15 - 65 < 8.6</content>
<content></content> PTH, Intact 23 pg/mL 15-65 [facility] ([facility] ID Date Data Source [id number] 07/08/2020 02:17:29 PM [facility] XXX-Imp : NoneMicroorganism XXX Cult : 20,000 col/mlProteus mirabilisATTENTION This species is always resistant to tetracyclines, nitrofurantoin, polymyxin B, and colistin. Name Value Range Interpretation Code Description Data Deepa rce(s) Supporting Document(s) ID Date Data Source [id number] 07/07/2020 03:00:53 PM [facility] Name Value Range Interpretation Code Description Data Deepa rce(s) Supporting Document(s) Color of Urine [facility] Clarity of Urine [facility] Specific gravity of Urine by Refractometry automated 1.025 1.003 -1.030 [facility] pH of Urine by Automated test strip 6.0 5.0-8.0 [facility] Protein [Mass/volume] in Urine by Automated test strip 100 mg/dL Neg [facility] Glucose [Mass/volume] in Urine by Automated test strip Neg [facility] Ketones [Mass/volume] in Urine by Automated test strip Neg [facility] Bilirubin.total [Presence] in Urine by Automated test strip Negative [facility] Hemoglobin [Presence] in Urine by Automated test strip [facility] Leukocyte esterase [Presence] in Urine by Automated test strip Negative [facility] Nitrite [Presence] in Urine by Automated test strip Negati [facility] Leukocytes [#/area] in Urine sediment by Automated count 106 /HPF 0 -5 H [facility] Erythrocytes [#/area] in Urine sediment by Automated count 47 /HPF 0-3 H [facility] Bacteria [#/area] in Urine sediment by Automated count Non e [facility] Epithelial cells.squamous [#/area] in Urine sediment by Auto mated count 16 /HPF None [facility] Mucus [#/area] in Urine sediment by Microscopy low power field None [facility] ID Date Data Source [id number] 07/03/2020 04:25:43 PM EST [facility] Name Value Range Interpretation Code Description Data Deepa rce(s) Supporting Document(s) PTH, INTACT @ 53.8 pg/mL (18.5-88.0) [facility] ID Date Data Source [id number] 07/03/2020 12:22:05 PM EST [facility] Name Value Range Interpretation Code Description Data Deepa rce(s) Supporting Document(s) PHOSPHORUS 3.4 mg/dL (2.5-4.5) [facility] ID Date Data Source [id number] 07/03/2020 12:22:05 PM EST [facility] Name Value Range Interpretation Code Description Data Deepa rce(s) Supporting Document(s) SODIUM 140 mmol/L (136-145) [facility] POTASSIUM 4.9 mmol/L (3.6-5.2) [facility] CHLORIDE 100 mmol/L (100-108) [facility] CO2 31 mmol/L (22-31) [facility] ANION GAP 9 mmol/L (7-16) [facility] UREA NITROGEN 12 mg/dL (7-24) [facility] CREATININE 0.65 mg/dL (0.60-1.00) [facility] BUN/CREAT RATIO 18.5 RATIO (10.0-20.0) [facility] GLUCOSE 101 mg/dL (70-99) H [facility] CALCIUM 10.5 mg/dL (8.4-10.2) H [facility] GFR >60 ml/min/1.73m2 (>59) [facility] GFR ( AMER) >60 ml/min/1.73m2 (>59) [facility] GFR INTERPRETATION [facility] --NORMAL KIDNEY FUNCTION OR MILD DISEASE - GFR >OR= 60CHRONIC KIDNEY DISEASE - GFR 15 - 59RENAL FAILURE - GFR <15 Est. GFR calculation based on the MDRDstudy equation, which assumes a steadystate for creatinine. Est. GFR should notbe used for medication dosing. ID Date Data Source [id number] 07/03/2020 11:19:23 AM EST [facility] Name Value Range Interpretation Code Description Data Deepa rce(s) Supporting Document(s) CALCIUM IONIZED 5.92 mg/dL (4.64-5.28) H [facility] IONIZED CALCIUM NORMALIZED TO PH 7.40 AN D 37 DEGREES C. ID Date Data Source [id number] 06/26/2020 12:47:00 PM EST [facility] [address] [place] [address] PHONE: [phone] FAX: [phone] Name .................. : JOSE R Alvarez Acct Number.................. : [id number] ROOM. ................. : MR Number ................... : [id number] Stay type ............. : O/P Discharge Date......... ... : 06/25/20 Admit Date ......... : 06/25/20 Admit Phys .................... : WILTON Sandoval Date of ....... : 1955 Family Phys ................... : WILTON S Phone .................. : [phone] Age ................................ : 64 Film# .................. .:[id number] Sex ................................. : F Unsigned transcriptions are preliminary reports and do not represent a medical or legal document ABDOMEN MULTIPLE VIEW [id number] COMPLETE:06/25/20 14:34 [facility] 4618 (REASON FOR ABDOMEN: ABDOMINAL PAIN MULTIPLE [...] for: WILTON AGEE via fax Copy for: [facility] Page 1 of 1 Name Value Range Interpretation Code Description Data Deepa rce(s) Supporting Document(s) ID Date Data Source [id number] 06/25/2020 01:54:00 PM EST [facility] ([facility] Name Value Range Interpretation Code Description Data Deepa rce(s) Supporting Document(s) Thyrotropin [Units/volume] in Serum or Plasma 2.363 ulU/mL 0.60-4.8 [facility] ([facility] NORMAL RANGES Age [...] HCT IS 5% LESS SOURCE FOR DATA: [employer]PERATION MANUAL( AUTOMATED BLOOD COUNTS AND [...] >32 mL/min Normal ID Date Data Source [id number] 06/25/2020 01:54:00 PM [facility] ([facility] Name [...] HCT IS 5% LESS SOURCE FOR DATA: [employer]PERATION MANUAL( AUTOMATED BLOOD COUNTS AND [...] >32 mL/min Normal WBC 7.7 10E3/uL 4.1-10.9 [facility] ([facility] NORMAL RANGES Age WBC [...] HCT IS 5% LESS SOURCE FOR DATA: [employer]PERATION MANUAL( AUTOMATED BLOOD COUNTS AND [...] HCT 35.7 % 37.0-51.0 Below low normal [facility] ( [facility] NORMAL RANGES [...] HCT IS 5% LESS SOURCE FOR DATA: [employer]PERATION MANUAL( AUTOMATED BLOOD COUNTS AND [...] HGB 11.6 g/dL 12.0-18.0 Below low normal [facility] ( [facility] NORMAL RANGES Age WBC [...] HCT IS 5% LESS SOURCE FOR DATA: [employer]PERATION MANUAL( AUTOMATED BLOOD COUNTS AND [...] >32 mL/min Normal MCV 84.2 fL 80.0-97.0 [facility] NORMAL RANGES Age WBC [...] HCT IS 5% LESS SOURCE FOR DATA: [employer]PERATION MANUAL( AUTOMATED BLOOD COUNTS AND [...] >32 mL/min Normal MCH 27.4 pg 26.0-32.0 [facility] NORMAL RANGES Age WBC [...] >32 mL/min Normal MCHC 32.5 g/dL 31.0-36.0 [facility] ([facility] NORMAL RANGES [...] HCT IS 5% LESS SOURCE FOR DATA: [employer]PERATION MANUAL( AUTOMATED BLOOD COUNTS AND [...] PLT 542 10E3/uL 140-440 Above high normal [facility] ([facility] NORMAL RANGES Age [...] HCT IS 5% LESS SOURCE FOR DATA: [employer] 1800 [employer]PERATION MANUAL( AUTOMATED BLOOD COUNTS AND [...] Lym% 8.5 % 10.0-58.5 Below low normal [facility] ( [facility] NORMAL RANGES [...] HCT IS 5% LESS SOURCE FOR DATA: [employer]PERATION MANUAL( AUTOMATED BLOOD COUNTS AND [...] >32 mL/min Normal Neut% 79.7 % 37.0-92.0 [facility] ([facility] NORMAL RANGES [...] HCT IS 5% LESS SOURCE FOR DATA: [employer] 1800 [employer]PERATION MANUAL( AUTOMATED BLOOD COUNTS AND [...] >32 mL/min Normal RDW-CV 12.5 % 11.5-14.5 [facility] ([facility] NORMAL RANGES [...] HCT IS 5% LESS SOURCE FOR DATA: [employer] 1800 [employer]PERATION MANUAL( AUTOMATED BLOOD COUNTS AND [...] HCT IS 5% LESS SOURCE FOR DATA: [employer] 1800 [employer]PERATION MANUAL( AUTOMATED BLOOD COUNTS AND [...] >32 mL/min Normal Lym# 0.7 10E3/uL 0.6-4.1 [facility] NORMAL RANGES Age WBC RBC [...] HCT IS 5% LESS SOURCE FOR DATA: [employer] MANUAL( AUTOMATED BLOOD COUNTS AND [...] mL/min Normal MXD# 0.9 10E3/uL 0.0-1.8 [facility] ([facility] NORMAL RANGES Age WBC RBC HGB [...] HCT IS 5% LESS SOURCE FOR DATA: [employer] 1800 [employer]PERATION MANUAL( AUTOMATED BLOOD COUNTS AND [...] >32 mL/min Normal Neut# 6.1 % 2.0-7.8 [facility] NORMAL RANGES Age WBC [...] HCT IS 5% LESS SOURCE FOR DATA: [employer]PERATION MANUAL( AUTOMATED BLOOD COUNTS AND [...] MPV 8.5 fL 9.0-13.0 Below low normal [facility] ( [facility] NORMAL RANGES [...] HCT IS 5% LESS SOURCE FOR DATA: [employer] 1800 OPERATION MANUAL( AUTOMATED BLOOD COUNTS AND [...] >32 mL/min Normal ID Date Data Source [id number] 06/25/2020 01:54:00 PM EST [facility] ([facility] Name Value Range Interpretation Code Description Data Deepa rce(s) Supporting Document(s) BUN 11 mg/dL 8-23 [facility] NORMAL RANGES Age [...] HCT IS 5% LESS SOURCE FOR DATA: [employer] 1800 OPERATION MANUAL( AUTOMATED BLOOD COUNTS AND [...] Glu 132 mg/dL 70-110 Above high normal [facility] ([facility] NORMAL RANGES Age [...] HCT IS 5% LESS SOURCE FOR DATA: [employer] 1800 OPERATION MANUAL( AUTOMATED BLOOD COUNTS AND [...] above >32 mL/min Normal BUN/Creatinine Ratio 18.1 [facility] ([facility] NORMAL RANGES Age [...] HCT IS 5% LESS SOURCE FOR DATA: [employer] 1800 OPERATION MANUAL( AUTOMATED BLOOD COUNTS AND [...] HCT IS 5% LESS SOURCE FOR DATA: [employer] 1800 OPERATION MANUAL( AUTOMATED BLOOD COUNTS AND [...] Na 133 mmol/L 136-145 Below low normal [facility] ( [facility] NORMAL RANGES [...] HCT IS 5% LESS SOURCE FOR DATA: [employer] 1800 OPERATION MANUAL( AUTOMATED BLOOD COUNTS AND [...] CL 97.8 mmol/L 98.0-107.0 Below low normal [facility] ([facility] NORMAL RANGES Age [...] HCT IS 5% LESS SOURCE FOR DATA: [employer] 1800 OPERATION MANUAL( AUTOMATED BLOOD COUNTS AND [...] >32 mL/min Normal K 4.3 mmol/L 3.5-5.1 [facility] ([facility] NORMAL RANGES Age WBC RBC HGB [...] HCT IS 5% LESS SOURCE FOR DATA: [employer] 1800 OPERATION MANUAL( AUTOMATED BLOOD COUNTS AND [...] >32 mL/min Normal Co2 27.6 mmol/L 22.0-29.0 [facility] ([facility] NORMAL RANGES Age WBC RBC HGB [...] CA 10.7 mg/dL 8.6-10.2 Above high normal [facility] ([facility] NORMAL RANGES Age [...] HCT IS 5% LESS SOURCE FOR DATA: [employer] 1800 OPERATION MANUAL( AUTOMATED BLOOD COUNTS AND [...] >32 mL/min Normal TP 6.9 g/dL 6.6-8.7 [facility] ([facility] NORMAL RANGES [...] HCT IS 5% LESS SOURCE FOR DATA: [employer] 1800 OPERATION MANUAL( AUTOMATED BLOOD COUNTS AND [...] Alb 3.2 g/dL 3.4-4.8 Below low normal [facility] ( [facility] NORMAL RANGES [...] HCT IS 5% LESS SOURCE FOR DATA: [employer] 1800 OPERATION MANUAL( AUTOMATED BLOOD COUNTS AND [...] >32 mL/min Normal Alp 82.7 U/L 35-129 [facility] ([facility] NORMAL RANGES [...] HCT IS 5% LESS SOURCE FOR DATA: [employer] 1800 OPERATION MANUAL( AUTOMATED BLOOD COUNTS AND [...] HCT IS 5% LESS SOURCE FOR DATA: [employer] 1800 OPERATION MANUAL( AUTOMATED BLOOD COUNTS AND [...] HCT IS 5% LESS SOURCE FOR DATA: [employer] 1800 OPERATION MANUAL( AUTOMATED BLOOD COUNTS AND [...] mL/min Normal Alt (SGPT) 13 U/L 0-41 [facility] ([facility] NORMAL RANGES [...] HCT IS 5% LESS SOURCE FOR DATA: [employer] 1800 OPERATION MANUAL( AUTOMATED BLOOD COUNTS AND [...] mL/min Normal Ast (Sgot) 22 U/L 0-40 [facility] ([facility] NORMAL RANGES Age WBC [...] HCT IS 5% LESS SOURCE FOR DATA: [employer] 1800 OPERATION MANUAL( AUTOMATED BLOOD COUNTS AND [...] >32 mL/min Normal Anion Gap 12 mmol/L [facility] ([facility] NORMAL RANGES Age WBC RBC HGB [...] HCT IS 5% LESS SOURCE FOR DATA: [employer] 1800 OPERATION MANUAL( AUTOMATED BLOOD COUNTS AND [...] above >32 mL/min Normal Osmolality-Calculated 267.5 CALC [facility] ([facility] NORMAL RANGES [...] >32 mL/min Normal Tbili 0.34 mg/dL 0.0-1.2 [employer] ([facility] NORMAL RANGES Age WBC RBC [...] HCT IS 5% LESS SOURCE FOR DATA: Hologic DYN 1800 OPERATION MANUAL( AUTOMATED BLOOD COUNTS [...] HCT IS 5% LESS SOURCE FOR DATA: [employer] 1800 OPERATION MANUAL( AUTOMATED BLOOD COUNTS AND [...] and above >32 mL/min Normal eGFR Non-Afr. Tanzanian 95 # [facility] ([facility] [...] HCT IS 5% LESS SOURCE FOR DATA: [employer] 1800 OPERATION MANUAL( AUTOMATED BLOOD COUNTS AND [...] >32 mL/min Normal ID Date Data Source [id number] 06/25/2020 01:53:00 PM EST [facility] ([facility] Name Value Range Interpretation Code Description Data Deepa rce(s) Supporting Document(s) Lipoprotein lipase [Enzymatic activity/volume] in Serum or Plasm a 18 U/L 14-72 [facility] ([facility] ) Amylase [Enzymatic activity/volume] in Serum or Plasma 23 U/L 31-110 Below low normal [facility] ([facility] ) ID Date Data Source [id number] 06/10/2020 03:32:11 PM EST [facility] Name Value Range Interpretation Code Description Data Deepa rce(s) Supporting Document(s) Progress Note [facility] WLXCWo1eTbNGHfXh35/IYFitXBTcl6BnNJfeLEw5EKjdWJBvG9OqWGQ3aC9pBFC0XApOLxHdFmRsEaGd lbm [file] investigation manager+EG9gBb74/Fe2CU/oq/aB8zVPH8nA6PKMgHUbK7mBden7z1vl/Yuni+Vm6bZlHiW59Sg5FstnEyZFz [file] ICAgICAgICAgICAgICAgICAgICAgICAgICAgICAgIC AgICAgICAgICAgICAgICAgICAgICAgICAgICAgICAgICAgICAgDQogICAgICAgICAgICAgICAgICAgIC AgICAgICAgICAgICAgICAgICAgICAgICAgICAgICAgICAgICAgICAgICAgICAgICAgICAgICAgICAgIC AgICAgICAgICAgICAgICAgICAgDQogICAgICAgICAg ICAgICAgICAgICAgICAgICAgICAgICAgICAgICAgICAgICAgICAgICAgICAgICAgICAgICAgICAgICAg ICAgICAgICAgICAgICAgICAgICAgICAgICAgICAgDQogICAgICAgICAgICAgICAgICAgICAgICAgICAg ICAgICAgICAgICAgICAgICAgICAgICAgICAgICAgIC AgICAgICAgICAgICAgICAgICAgICAgICAgICAgICAgICAgICAgICAgDQogICAgICAgICAgICAgICAgIC AgICAgICAgICAgICAgICAgICAgICAgICAgICAgICAgICAgICAgICAgICAgICAgICAgICAgICAgICAgIC AgICAgICAgICAgICAgICAgICAgICAgDQogICAgICAg ICAgICAgICAgICAgICAgICAgICAgICAgICAgICAgICAgICAgICAgICAgICAgICAgICAgICAgICAgICAg ICAgICAgICAgICAgICAgICAgICAgICAgICAgICAgICAgDQogICAgICAgICAgICAgICAgICAgICAgICAg ICAgICAgICAgICAgICAgICAgICAgICAgICAgICAgIC AgICAgICAgICAgICAgICAgICAgICAgICAgICAgICAgICAgICAgICAgICAgDQogICAgICAgICAgICAgIC AgICAgICAgICAgICAgICAgICAgICAgICAgICAgICAgICAgICAgICAgICAgICAgICAgICAgICAgICAgIC AgICAgICAgICAgICAgICAgICAgICAgICAgDQogICAg ICAgICAgICAgICAgICAgICAgICAgICAgICAgICAgICAgICAgICAgICAgICAgICAgICAgICAgICAgICAg ICAgICAgICAgICAgICAgICAgICAgICAgICAgICAgICAgICAgDQogICAgICAgICAgICAgICAgICAgICAg ICAgICAgICAgICAgICAgICAgICAgICAgICAgICAgIC AySAWtXVCmQJOuOWBxFRLcAADqHAInXYNtVZDbJFRvMGMsFDEdIDJzLRMmDZQjAGb9X1tmPJKtOHKiHV 4vBMf6Lb3+CNxQTsPcJHL6awMarB1ABI9lm1MoXWldVNFta2BiAGg1CP2YWYFqNUqwHB8UGWankq9ZIB OpHQGofQGGq6zgAkVaJVV8TKGcQuayLD8QSVTfA7xk vbCqGCUiCEBLLEuvJKRUCOnyNLVQORAlRGKjRyKuEXruBN3Mc5TkgJE7JQk+Zt1KSP6nd0WjWIsdHBLl LX7qzc2BXQtHWgBaQ0EhfwO3SNP2VMWgOv4IXHErJKKqgDJtDKBbJQSOPdFiO0XxdK80GOMADm8+DQpl jlMbPfsDQuZ6VIPax2IeGBn6BM6GVRDsBJk7aXLlMS VjB4Qia8RgHt96XMMiKnpbCgX2KGLpALSEpN47TnPbMtcbCOQfPOOwHn1nWwUbYsDjHXT0WXBnPO5aIN dbYN0BHXK6HYgtYLZgVDOiR5nOKlObNNVwXQRaoJckVK2MTbYdN1MzllUkxBNqADLpSGKDBa9+DQplbm OpLiqUZhVjGJNmi9ZfPOy8SJ8UUSMfQAaaGY9FBXZx mT9pSEplBJ7SItLpTuGmKUEWMgCsL78epTRxFSz4K4InSoTvYLArBkwsRXKjVQatZwHjWRKaLcUcCLwt ID4+ID4+XXsmXE0ONTcwshLiLNIuAu4WSPZjLCAmKI4iGZRcWMIaX1T5aKyxGVWYPeIzJ9bnfeanHD2r JEMgA168zCtywmNmUOL8MPTjQz6YOORzOPG3OZLrmK QmIpqpFAHUIGvnLC1RaZZyQSZ8jD9wFMppJTWpWTOkD4qFLbTdaIluNN82fCbqwxEulHZuVKt+Pg0KZW 4vn0YkHUz2reSpBHdmYKStWCkuFIQbBZSoGGTbULS6KJI6WSXYGhDfNCBpEHWhZYyoDKZyFPIqyp7IEW MmDSI1ETHcZfThUGCrPSVcUUryLNLmNZAyMyNyMQQo FZMbWP7YJoGbGDOlWGUjVCfwJUMmQFMbye6BSPDrGLWbVaO3XHArKMPuNGUjDUbsAHIbCHHiUbkmSCDt BNFcST6IWzFxHTLdXDQ6MDXgSIIfMWWvpz1QFGNjRMImCnW9TNRxJZSbUVHlEObjFWXiHTF2QyGeZVZo FYWgUJ0OXqFlJGJpLSf3QzCjHNTaRXDjtd3JNTJuIU QpJBvjAjYtHXOlJDClHMrrWEPwKLMqBPX7JNQwNMZhCD3RYvGvISWoPGZhMLpuKFDbSFLyed7FMVAhOS CnRrL5DFDsSUQzTVGqBIxeMWSzSLBwTRc8WPKyYWHkLS3LSjZvQNQoVBG5AftuIOYiISSyyi4CSJOrYF KlLDJzCFRgIKNfEQIbLUdmGIUbDZS1FVS9JOHlDIHj EK3USfZbPLOdPPZ8QOraYPTiANFvuu2GOATaIMB6FfY7YsVxHUDjGEHyLKicNHQkQRO6OmB5BINqYVIv SQ3WBnKnNYJfQEn3FtpsYWWuFIDfcr3ROLHoFWR5DVZ2KDJeMMEmARKaDXzfADWbREA7XeE8OCHqFQSb NA0LSnXjICRfGYk6HYjdMSXmEJPjwh2BBNXfPGW3HX z8TPPaOBFxGTQfFAmtFOZtLGKyPNFpSDDgMJVuYI8WGaZwJLRaJWP7PrukBIUwJGGpgm2SPEDmQTF6QG t5KYOeVKNnQXBpJSieMWHtVNApIPpmKIMfIOByVD9MJtBiVPxoWICJSys1BDdpH2p9IBTqCU1ZK2Wzs2 GiAvMsKRMLLZodAI5eieNbUNKbNk0VF7uXZft4Gfoi WQV8BNCyMFIxDzB0Nea9X4LoWTPeDJDuOJT0BZ8nCGf9DFZaVIC8PDYjRSWvWEinFhD3Y9BcZaUtMmTr HIksGwWqCC3ZXj0LZuD2TJN3hEWcAt2MENTyFjEHOrPsAV5CCSg= ID Date Data Source [id number] 06/11/2020 07:36:00 AM EST [facility] Received: 06/10/2020 at 09:00:00 QPT : [facility], [address] , [address] [place] [address], [phone] MD Received: 06/10/2020 at 09:00:00 QPT : [facility], [facility] [address] , [address] [place] [address], [phone] MD Name Value Range Interpretation Code Description Data Deepa rce(s) Supporting Document(s) ID Date Data Source [id number] 06/11/2020 07:36:00 AM EST [facility] Received: 06/10/2020 at 09:00:00 QPT : [facility], [address] , [address] [place] [address], [phone] MD Received: 06/10/2020 at 09:00:00 QPT : [facility], [address] , [address] [place] [address], [phone], Wyatt Cates MD Name Value Range Interpretation Code Description Data Deepa rce(s) Supporting Document(s) Thyroxine (T4) free [Mass/volume] in Serum or Plasma 1.1 ng/dL 0.8-1.8 Normal (applies to non-numeric results) [facility] ID Date Data Source [id number] 06/11/2020 07:36:00 AM EST [facility] Received: 06/10/2020 at 09:00:00 QPT : [facility], [address], [address] [place] [address], [phone] MD Received: 06/10/2020 at 09:00:00 QPT : [facility], [facility] [address] , [address] [place] [address], [phone] MD Name Value Range Interpretation Code Description Data Deepa rce(s) Supporting Document(s) Thyrotropin [Units/volume] in Serum or Plasma 1.82 mIU/L 0. 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/NjX [file] I8u6YSeA/JScBZ0wqcD2jBjujM2J6D5/[employer]/qnROw6JTYbhxrLjaYo5zi0PiT3g11ZJjCEoW9rfE/WYi3 [file] fifvYqUd3gd75/afBArq/JiWrUwxUaerbTbzGx1GLw2hYlJ9OBNryx/Juan Jose//RUgOzqYbX7yPvGm8JvBC [file] eLdDgAp+10b9xByawPaQbwsqdm1PQ8q47uFidWM6UDmSk6F/KZ/5qa921MX3sxPUZwgYGFt78cZvW/PERIODICALS LIBRARY ASSISTANT [file] SIL2vB3OQYhlvcNjeXshrW8+Jh54SYUgz/RT/RmLuhEfUMbVrqfmoiFs9hDPDF/aquatic scientist/EbQo3tPgToI2+ [file] [employer]+ [file] 364D6u3G4QCNmt27zUBUD0PuBq93UpOIx/AR27D0Y4 Oky8fuOK6mbOeR0kXYqR/6GBT5R9DspbbU91yWwrZ4qV66fnPz3xjmasJePMtGs0HFtVWdoIN+80pJDL syl4ohgAduN8REe1j1RyT/ENqCMd6FVyo/OMsStAuXpt0XCyHRTX/OybO6597Lebu/zKrwe8v+luYS2d vTptWe/JXjW9WcJIwp59CjDmEQH04pBJhpDL3kuOAP K5RSaA+7d/w8dDSDjxjZdUWE+jCfbGAUsLTsurzi1VPcq+b1ybE0EWgvBzBR2hwsqYD1+sxoBLiMsMOj gmmNaaO7IgKCaZhUKqJ2EqoLx/qxA4ShXiHFj7+xGSnlAnQf3PPSh+nNs0E45sI6yznH5OpJouvOTvYn /dn7n8jdjzBi6tFHGej8IQV8Fw45Img6KG7aFHjRlL NmYBJf9tg7yIM6oZivigltayzt4aBplJPRZHhmZBQAv6b7FFNK6OGXOdRVbpxQZ+XN/L4MfD/Z/GK9jW FRnw8Cio4EBQhCNXqZi1dyBC2GeO6PlDq3hAi+qf1ravR47/3ND4yNnU5/4e5QN+S00RuCASVWe07/NB JcOGesUKVnpL/IojMQr7co0xdThgniny7xf4Zt8kXn fPH/2cQZynukZwHAvTQ7YH4deCOnraZSVZn4twtMIXaCTtYeCxqz5PjDyyIZ7UsWTOVqor/3e+/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/ [file] IgLBksdgY7EPuhD9CCbeaOVpsmUV6cRfAJ9+ju0snRjs30OXz1R5bt2w8sgdStAOqC131/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+E28LfE7 [file] 8xmCSlTA7NIwYSODYJKPRBOMQYWWEHRBK9MFEWJWSz JNQZVXOuFCIUUFOQUDKBVi95JRPQRs36DYECIn1TAJMWH2OBQHOCX0HVKA0JLL1la2DjUIXrLBprhsCp XsiIRPqydMDfjThiVCMMHjMdVXS1Yd1CYUHSO0H= ID Date Data Source [id number] 03/23/2020 07:07:00 AM EST [facility] Received: 03/19/2020 at 08:43:00 AMD : [facility], [address], [place], [phone], Rosas Daniels M.D.,PhD Received: 03/19/2020 at 08:43:00 QPT : [facility], [address], [address] [place] [address], [phone], Wyatt Cates MD Name Value Range Interpretation Code Description Data Deepa rce(s) Supporting Document(s) ID Date Data Source [id number] 03/23/2020 07:07:00 AM EST [facility] Received: 03/19/2020 at 08:43:00 AMD : [facility], [address], [place], [phone], Rosas Daniels M.D.,PhD Received: 03/19/2020 at 08:43:00 QPT : [facility], [address], [address] [place] [address], [phone], Wyatt Cates MD Name Value Range Interpretation Code Description Data Edepa rce(s) Supporting Document(s) Thyroxine (T4) free [Mass/volume] in Serum or Plasma by Dial ysis 1.6 ng/dL 0.9-2.2 [facility] This test was developed and its analytic al performancecharacteristics have been determined by [employer] [place], [place]. It hasnot been cleared or approved by the U.S. Food and DrugAdministration. This assay has been validated pursuantto the CLIA regulations and is used for clinicalpurposes. ID Date Data Source [id number] 03/23/2020 07:07:00 AM EST [facility] Received: 03/19/2020 at 08:43:00 AMD : [facility], [address], [place], [phone], Rosas Daniels M.D.,PhD Received: 03/19/2020 at 08:43:00 QPT : [facility], [address] , [address] [place] [address], [phone], Wyatt Cates MD Name Value Range Interpretation Code Description Data Deepa rce(s) Supporting Document(s) Thyrotropin [Units/volume] in Serum or Plasma 0.86 mIU/L 0. 40-4.50 Normal (applies to non-numeric results) [facility] ID Date Data Source [id number] 03/12/2020 09:10:00 AM EST [facility] ([facility] Name Value Range Interpretation Code Description Data Deepa rce(s) Supporting Document(s) Calcium [Mass/volume] in Serum or Plasma 11.1 mg/dL 8.7-10.3 Above high normal [facility] ([facility] Verified by repeat analysis PTH, Intact 25 pg/mL 15-65 [facility] ([facility] Intact PTH Laboratory test result [place] [facility] ([facility] <content>Interpretation Intact PTH Calcium</content>
<content>(pg/mL) (mg/dL)</content>
<content>Normal 15 - 65 8.6 - 10.2</content>
<content>Primary Hyperparathyroidism >65 >10.2</content>
<content>Secondary Hyperparathyroidism >65 <10.2</content>
<content>Non-Parathyroid Hypercalcemia <65 > 10.2</content>
<content>Hypoparathyroidism <15 < 8.6</content>
<content>Non-Parathyroid Hypocalcemia 15 - 65 < 8.6</content>
<content></content> ID Date Data Source [id number] 03/12/2020 08:49:00 AM EST [facility] ([facility] Name Value Range Interpretation Code Description Data Deepa rce(s) Supporting Document(s) Thyrotropin [Units/volume] in Serum or Plasma 0.512 ulU/mL 0. 60-4.8 Below low normal [facility] ([facility] ) ID Date Data Source [id number] 03/12/2020 08:49:00 AM EST [facility] ([facility] Name Value Range Interpretation Code Description Data Deepa rce(s) Supporting Document(s) Chol 196 mg/dL 0-200 [facility] ([facility] NORMAL RANGES Age WBC [...] HCT IS 5% LESS SOURCE FOR DATA: [employer] 1800 OPERATION MANUAL( AUTOMATED BLOOD COUNTS AND [...] HCT IS 5% LESS SOURCE FOR DATA: [employer] 1800 OPERATION MANUAL( AUTOMATED BLOOD COUNTS AND [...] 2-19 YEARS EXCLUSIVE. Trig 124 mg/dL 40-200 [facility] ([facility] NORMAL RANGES [...] HCT IS 5% LESS SOURCE FOR DATA: [employer] 1800 OPERATION MANUAL( AUTOMATED BLOOD COUNTS AND [...] 2-19 YEARS EXCLUSIVE. Cho/HDL Ratio 3.0 Calc [employer] ([facility] NORMAL RANGES Age WBC RBC HGB [...] HCT IS 5% LESS SOURCE FOR DATA: Hologic DYN 1800 OPERATION MANUAL( AUTOMATED BLOOD COUNTS [...] HCT IS 5% LESS SOURCE FOR DATA: [employer] 1800 OPERATION MANUAL( AUTOMATED BLOOD COUNTS AND [...] 2-19 YEARS EXCLUSIVE. ID Date Data Source [id number] 03/12/2020 08:49:00 AM EST [facility] ([facility] Name Value Range Interpretation Code Description Data Deepa rce(s) Supporting Document(s) BUN 14 mg/dL 8- [facility] ([facility] NORMAL RANGES [...] HCT IS 5% LESS SOURCE FOR DATA: [employer] 1800 OPERATION MANUAL( AUTOMATED BLOOD COUNTS AND [...] 2-19 YEARS EXCLUSIVE. Glu 106 mg/dL 70-110 [facility] ([facility] NORMAL RANGES [...] HCT IS 5% LESS SOURCE FOR DATA: [employer] 1800 OPERATION MANUAL( AUTOMATED BLOOD COUNTS AND [...] 2-19 YEARS EXCLUSIVE. BUN/Creatinine Ratio 22.7 CALC [facility] ([facility] NORMAL RANGES Age [...] HCT IS 5% LESS SOURCE FOR DATA: [employer] 1800 OPERATION MANUAL( AUTOMATED BLOOD COUNTS AND [...] 2-19 YEARS EXCLUSIVE. Creat 0.6 mg/dL 0.5-1.0 [facility] ([facility] NORMAL RANGES [...] HCT IS 5% LESS SOURCE FOR DATA: Hologic DYN 1800 OPERATION MANUAL( AUTOMATED BLOOD COUNTS [...] 2-19 YEARS EXCLUSIVE. Na 139 mmol/L 136-145 [facility] ([facility] NORMAL RANGES [...] HCT IS 5% LESS SOURCE FOR DATA: [employer] 1800 OPERATION MANUAL( AUTOMATED BLOOD COUNTS AND [...] 2-19 YEARS EXCLUSIVE. CL 102.9 mmol/L 98.0-107.0 [facility] ([facility] NORMAL RANGES Age WBC [...] HCT IS 5% LESS SOURCE FOR DATA: [employer] 1800 OPERATION MANUAL( AUTOMATED BLOOD COUNTS AND [...] 2-19 YEARS EXCLUSIVE. K 4.5 mmol/L 3.5-5.1 [facility] ([facility] NORMAL RANGES Age WBC [...] HCT IS 5% LESS SOURCE FOR DATA: [employer] 1800 OPERATION MANUAL( AUTOMATED BLOOD COUNTS AND [...] 2-19 YEARS EXCLUSIVE. Co2 27.2 mmol/L 22.0-29.0 [facility] ([facility] NORMAL RANGES Age WBC RBC HGB [...] HCT IS 5% LESS SOURCE FOR DATA: [employer] 1800 OPERATION MANUAL( AUTOMATED BLOOD COUNTS AND [...] 2-19 YEARS EXCLUSIVE. TP 6.8 g/dL 6.6-8.7 [facility] ([facility] NORMAL RANGES [...] HCT IS 5% LESS SOURCE FOR DATA: Hologic DYN 1800 OPERATION MANUAL( AUTOMATED BLOOD COUNTS [...] HCT IS 5% LESS SOURCE FOR DATA: [employer] 1800 OPERATION MANUAL( AUTOMATED BLOOD COUNTS AND [...] 2-19 YEARS EXCLUSIVE. A/G Ratio 1.6 CALC [facility] ([facility] NORMAL [...] HCT IS 5% LESS SOURCE FOR DATA: [employer] 1800 OPERATION MANUAL( AUTOMATED BLOOD COUNTS AND [...] 2-19 YEARS EXCLUSIVE. Alb 4.2 g/dL 3.4-4.8 [facility] ([facility] NORMAL RANGES [...] HCT IS 5% LESS SOURCE FOR DATA: [employer] 1800 OPERATION MANUAL( AUTOMATED BLOOD COUNTS AND [...] HCT IS 5% LESS SOURCE FOR DATA: [employer] 1800 OPERATION MANUAL( AUTOMATED BLOOD COUNTS AND [...] EXCLUSIVE. Alt (SGPT) 16 U/L 0-41 [facility] ([facility] NORMAL RANGES [...] HCT IS 5% LESS SOURCE FOR DATA: [employer] 1800 OPERATION MANUAL( AUTOMATED BLOOD COUNTS AND [...] YEARS EXCLUSIVE. Ast (Sgot) 16 U/L 0-40 [facility] ([facility] NORMAL RANGES [...] HCT IS 5% LESS SOURCE FOR DATA: [employer] 1800 OPERATION MANUAL( AUTOMATED BLOOD COUNTS AND [...] HCT IS 5% LESS SOURCE FOR DATA: [employer] 1800 OPERATION MANUAL( AUTOMATED BLOOD COUNTS AND [...] YEARS EXCLUSIVE. Osmolality-Calculated 279.2 [facility] ([facility] NORMAL RANGES Age [...] HCT IS 5% LESS SOURCE FOR DATA: [employer] 1800 OPERATION MANUAL( AUTOMATED BLOOD COUNTS AND [...] 2-19 YEARS EXCLUSIVE. Anion Gap 14 mmol/L [facility] ([facility] NORMAL RANGES [...] HCT IS 5% LESS SOURCE FOR DATA: [employer] 1800 OPERATION MANUAL( AUTOMATED BLOOD COUNTS AND [...] INDIVIDUALA AGED 2-19 YEARS EXCLUSIVE. eGFR Non-Afr. Tanzanian 96 # [facility] ([facility] [...] HCT IS 5% LESS SOURCE FOR DATA: [employer] 1800 OPERATION MANUAL( AUTOMATED BLOOD COUNTS AND [...] YEARS EXCLUSIVE. eGFR 111 # [facility] ( [facility] NORMAL RANGES Age [...] HCT IS 5% LESS SOURCE FOR DATA: [employer] 1800 OPERATION MANUAL( AUTOMATED BLOOD COUNTS AND [...] 2-19 YEARS EXCLUSIVE. ID Date Data Source [id number] 03/12/2020 08:49:00 AM EST [facility] ([facility] Name Value Range Interpretation Code Description Data Deepa rce(s) Supporting Document(s) RBC 4.52 10E6/uL 4.20-6.30 [facility] ([facility] NORMAL [...] HCT IS 5% LESS SOURCE FOR DATA: [employer] 1800 OPERATION MANUAL( AUTOMATED BLOOD COUNTS AND [...] 2-19 YEARS EXCLUSIVE. WBC 5.4 10E3/uL 4.1-10.9 [facility] ([facility] NORMAL RANGES Age WBC [...] HCT IS 5% LESS SOURCE FOR DATA: [employer]YN 1800 OPERATION MANUAL( AUTOMATED BLOOD COUNTS [...] 2-19 YEARS EXCLUSIVE. HGB 13.2 g/dL 12.0-18.0 [facility] ([facility] NORMAL RANGES [...] HCT IS 5% LESS SOURCE FOR DATA: [employer] 1800 OPERATION MANUAL( AUTOMATED BLOOD COUNTS [...] 2-19 YEARS EXCLUSIVE. HCT 40.2 % 37.0-51.0 [facility] ([facility] NORMAL [...] HCT IS 5% LESS SOURCE FOR DATA: [employer] 1800 OPERATION MANUAL( AUTOMATED BLOOD COUNTS AND [...] HCT IS 5% LESS SOURCE FOR DATA: [employer] 1800 OPERATION MANUAL( AUTOMATED BLOOD COUNTS AND [...] 2-19 YEARS EXCLUSIVE. MCH 29.2 pg 26.0-32.0 [facility] ([facility] NORMAL RANGES [...] HCT IS 5% LESS SOURCE FOR DATA: [employer] 1800 OPERATION MANUAL( AUTOMATED BLOOD COUNTS AND [...] HCT IS 5% LESS SOURCE FOR DATA: [employer] 1800 OPERATION MANUAL( AUTOMATED BLOOD COUNTS [...] 2-19 YEARS EXCLUSIVE. PLT 215 10E3/uL 140-440 [facility] ([facility] NORMAL RANGES Age WBC [...] HCT IS 5% LESS SOURCE FOR DATA: [employer] 1800 OPERATION MANUAL( AUTOMATED BLOOD COUNTS AND [...] 2-19 YEARS EXCLUSIVE. RDW-CV 13.0 % 11.5-14.5 [facility] ([facility] NORMAL RANGES [...] HCT IS 5% LESS SOURCE FOR DATA: H[employer] DYN 1800 OPERATION MANUAL( AUTOMATED BLOOD COUNTS [...] HCT IS 5% LESS SOURCE FOR DATA: [employer] 1800 OPERATION MANUAL( AUTOMATED BLOOD COUNTS AND [...] 2-19 YEARS EXCLUSIVE. MXD% 10.1 % 0.1-24.0 [facility] ([facility] NORMAL RANGES Age WBC [...] HCT IS 5% LESS SOURCE FOR DATA: [employer] OPERATION MANUAL( AUTOMATED BLOOD COUNTS AND [...] 2-19 YEARS EXCLUSIVE. Neut% 57.8 % 37.0-92.0 [facility] NORMAL RANGES [...] HCT IS 5% LESS SOURCE FOR DATA: [employer] OPERATION MANUAL( AUTOMATED BLOOD COUNTS AND [...] HCT IS 5% LESS SOURCE FOR DATA: [employer] OPERATION MANUAL( AUTOMATED BLOOD COUNTS AND [...] 2-19 YEARS EXCLUSIVE. Lym# 1.7 10E3/uL 0.6-4.1 [facility] ([facility] NORMAL RANGES Age WBC [...] 2-19 YEARS EXCLUSIVE. MXD# 0.5 10E3/uL 0.0-1.8 [facility] ([facility] NORMAL RANGES Age WBC [...] HCT IS 5% LESS SOURCE FOR DATA: [employer] OPERATION MANUAL( AUTOMATED BLOOD COUNTS AND [...] HCT IS 5% LESS SOURCE FOR DATA: [employer] OPERATION MANUAL( AUTOMATED BLOOD COUNTS AND [...] 2-19 YEARS EXCLUSIVE. ID Date Data Source [id number] 03/12/2020 08:48:00 AM EST [facility] ([facility] Name Value Range Interpretation Code Description Data Deepa rce(s) Supporting Document(s) Hemoglobin A1c/Hemoglobin.total in Blood 5.6 % 4.50-6.20 [facility] ([facility] Procedure Social History Code Duration Value Status Description Data Source(s ) Smoking 02/09/2021 12:00:00 AM EDT Patient has never smoked co mpleted Patient has never smoked [facility] ([facility] Alcohol intake 01/10/2021 12:00:00 AM EDT Current drinker of al cohol (finding) completed Current drinker of alcohol (finding) [facility] Tobacco use and exposure 01/10/2021 12:00:00 AM EDT Never used co mpleted Never used [facility] Smoking 01/10/2021 12:00:00 AM EDT Never smoker completed Never s waker [facility] Alcohol intake 12/25/2020 12:00:00 AM EDT Current drinker of al cohol (finding) completed Current drinker of alcohol (finding) [facility] Alcohol intake 12/18/2020 12:00:00 AM EDT Current drinker of al cohol (finding) completed Current drinker of alcohol (finding) [facility] Alcohol intake 11/25/2020 12:00:00 AM EDT Current drinker of al cohol (finding) completed Current drinker of alcohol (finding) [facility] Smoking 11/19/2020 12:00:00 AM EDT Patient has never smoked co mpleted Patient has never smoked [facility] ([facility]) Alcohol intake 09/30/2020 12:00:00 AM EDT Current drinker of al cohol (finding) completed Current drinker of alcohol (finding) [facility] Alcohol intake 09/25/2020 12:00:00 AM EDT Current drinker of al cohol (finding) completed Current drinker of alcohol (finding) [facility] Alcohol intake 09/04/2020 12:00:00 AM EDT Current drinker of al cohol (finding) completed Current drinker of alcohol (finding) [facility] Alcohol intake 08/27/2020 12:00:00 AM EDT Current drinker of al cohol (finding) completed Current drinker of alcohol (finding) [facility] Alcohol intake 08/25/2020 12:00:00 AM EDT Current drinker of al cohol (finding) completed Current drinker of alcohol (finding) [facility] Alcohol intake 08/07/2020 12:00:00 AM EDT Current drinker of al cohol (finding) completed Current drinker of alcohol (finding) [facility] Alcohol intake 07/10/2020 12:00:00 AM EST Yes completed [facility] Smoking 07/10/2020 12:00:00 AM EST Never smoker completed Never s moker [facility] Alcohol intake 06/10/2020 12:00:00 AM EST Current drinker of al cohol (finding) completed Current drinker of alcohol (finding) [facility] Vital Signs ID Date Data Source UNK Name Value Range Interpretation Code Description Data Source(s) Systolic blood pressure 128 mm[Hg] 128 mm[Hg] M [facility]ENT ([facility]) RT Arm Diastolic blood pressure 62 mm[Hg] 62 mm[Hg] [facility] ([facility]) RT Arm Heart rate 68 /min 68 /min [facility] ([facility]) Body height 63.25 [in_i] 63.25 [in_i] [facility] ([facility]) 5'3.25" Body weight 139.00 [lb_av] 139.00 [lb_av] [facility] T ([facility]) Body mass index (BMI) [Ratio] 24.4 kg/m2 24.4 k g/m2 [facility] ([facility]) [place] body weight 120 [lb_av] 120 [lb_av] [facility] T ([facility]) Body [facility] 62.597 kg [facility].597 [facility] Body surface area Derived from formula 1.67 m2 1.67 m2 [facility] ([facility]) Systolic blood pressure 110 mm[Hg] 110 mm[Hg] M EDENT ([facility]) Diastolic blood pressure 70 mm[Hg] 70 mm[Hg] [facility] ([facility]) Heart rate 90 /min 90 /min [facility] Oxygen saturation in Arterial blood by Pulse oximetry 98 % 98 % [facility] Body height 64 [in_i] 64 [in_i] [facility] ([facility]) 5'4" Body weight 138.00 [lb_av] 138.00 [lb_av] [...] blood pressure 72 mm[Hg] 72 mm[Hg] [facility] ([facility]) Heart rate 84 /min 84 /min [facility] ([facility]) Body height 63.25 [in_i] 63.25 [in_i] [facility] ([facility]) 5'3.25" Body weight 138.00 [lb_av] 138.00 [lb_av] MED[facility] T ([facility]) Body mass index (BMI) [Ratio] 24.3 kg/m2 24.3 k g/m2 [facility] ([facility]) Systolic blood pressure 116 mm[Hg] 116 mm[Hg] M EDENT ([facility]) Systolic blood pressure 122 mm[Hg] 122 mm[Hg] M EDENT ([facility]) RT Arm Body height 63.25 [in_i] 63.25 [in_i] [facility] ([facility]) 5'3.25" Diastolic blood pressure 68 mm[Hg] 68 mm[Hg] [facility] ([facility]) RT Arm Heart rate 87 /min 87 /min [facility] ([facility]) Body weight 147.00 [lb_av] 147.00 [lb_av] MED[facility] T ([facility]) Body mass index (BMI) [Ratio] 25.8 kg/m2 25.8 k g/m2 [facility] ([facility]) Body mass index (BMI) [Ratio] 28.5 kg/m2 28.5 k g/m2 [facility] ([facility] Oxygen saturation in Arterial blood by Pulse oximetry 95 % 95 % [facility] ([facility] Systolic blood pressure 136 mm[Hg] 136 mm[Hg] [...] Body height 64 [in_i] 64 [in_i] [facility] ([facility] 5'4" Body weight 166.00 [lb_av] 166.00 [lb_av] MED[facility] T ([facility] [place] body weight 120 [lb_av] 120 [lb_av] [facility] T ([facility] Systolic blood pressure [...] Body height 64 [in_i] 64 [in_i] [facility] ([facility] 5'4" Body weight 162.00 [lb_av] 162.00 [lb_av] [facility] T ([facility] [place] body weight 120 [lb_av] 120 [lb_av] [facility] ([facility] Body mass index (BMI) [Ratio] 27.8 kg/m2 27.8 k g/m2 [facility] ([facility] Oxygen saturation in Arterial blood by Pulse oximetry 96 % 96 % [facility] ([facility] Systolic blood pressure 118 mm[Hg] 118 mm[Hg] [facility] Diastolic blood pressure 62 mm[Hg] 62 mm[Hg] [facility] Heart rate 64 /min 64 /min [facility] Respiratory rate 20 /min 20 /min [facility] Body height 161.3 cm 161.3 cm [facility] Body weight 73.029 kg 73.029 kg [facility] Body mass index (BMI) [Ratio] 28.07 kg/m2 28.07 kg/m2 [facility] Respiratory rate 12 /min 12 /min [facility] ( [facility] Heart rate 92 /min 92 /min [facility] ([facility] Body height 64 [in_i] 64 [in_i] [facility] 5'4" Oxygen saturation in [...] [lb_av] MED[facility] T ([facility] [place] body weight 120 [lb_av] 120 [lb_av] [facility] T ([facility] Body mass index (BMI) [Ratio] 28.1 kg/m2 28.1 k g/m2 [facility] ([facility] Body mass index (BMI) [Ratio] 27.5 kg/m2 27.5 k g/m2 [facility] ([facility] Body weight 160.00 [lb_av] 160.00 [lb_av] [facility] T ([facility] [place] body weight 120 [lb_av] 120 [lb_av] [facility] T ([facility] Heart rate 64 /min 64 /min [facility] ([facility] Respiratory rate 12 /min 12 /min [facility] ( [facility] Body height 64 [in_i] 64 [in_i] [facility] ([facility] 5'4" Oxygen saturation in Arterial blood by Pulse oximetry 98 % 98 % [facility] ([facility] Systolic blood pressure 110 mm[Hg] 110 mm[Hg] M EDENT ([facility] Diastolic blood pressure 64 mm[Hg] 64 mm[Hg] [facility] ([facility] Body temperature 97.4 [degF] 97.4 [degF] [facility] ([facility] Body surface area Derived from formula 1.79 m2 1.79 m2 [facility] ([facility]) Body weight 73.483 kg 73.483 kg [facility] ([facility]) Systolic blood pressure 118 mm[Hg] 118 mm[Hg] [facility]) [place] body weight 120 [lb_av] 120 [lb_av] [facility] T ([facility]) Diastolic blood pressure 78 mm[Hg] 78 mm[Hg] [facility] ([facility]) Heart rate 80 /min 80 /min [facility] ([facility]) Oxygen saturation in Arterial blood by Pulse oximetry 96 % 96 % [facility] ([facility]) Body temperature 96.8 [degF] 96.8 [degF] [facility] ([facility]) Body height 64 [in_i] 64 [in_i] [facility] ([facility]) 5'4" Body weight 162.00 [lb_av] 162.00 [lb_av] [facility] Body mass index (BMI) [Ratio] 27.8 kg/m2 27.8 k g/m2 [facility] ([facility]) ID Date Data Source [id number] 02/14/2021 01:02:22 AM EDT [facility] Name Value Range Interpretation Code Description Data Source(s) WEIGHT RECORDED [address] [facility] ID Date Data Source [id number] 01/10/2021 09:20:34 AM EDT [facility] Value Range Interpretation Code Description Data Source(s) WEIGHT RECORDED [address] [facility] ID Date Data Source [id number] [facility] Interpretation Code Description Data Source(s) WEIGHT RECORDED 139.[address] [facility] ID Date Data Source [id number] [facility]/28[facility] Interpretation Code Description Data Source(s) WEIGHT RECORDED 138.[address] [facility] ID Date Data Source [id number] 09/04/2020 04:42:44 PM [facility] Name Value Range Interpretation Code Description Data Source(s) WEIGHT RECORDED [address] [facility] ID Date Data Source [id number] 08/27/2020 01:18:04 PM [facility] Name Value Range Interpretation Code Description Data Source(s) WEIGHT RECORDED [address] [facility] Body height Measured 63.5 in 63.5 in [facility] ID Date Data Source [id number] 08/13/2020 02:35:08 PM [facility] Name Value Range Interpretation Code Description Data Source(s) WEIGHT RECORDED 152.[address] [facility] ID Date Data Source [id number] 08/10/2020 10:20:24 AM [facility] Name Value Range Interpretation Code Description Data Source(s) WEIGHT RECORDED 147.[address] [facility] Patient Treatment Plan of Care Planned Activity Planned Date Details Description Data Source (s) Potassium Chloride 10 MEQ Extended Release Oral Capsul e 12/18/2020 12:00:00 AM [facility] Dexamethasone 4 MG Oral Tablet 12/04/2020 12:00:00 AM [facility] Ondansetron 8 MG Oral Tablet 12/04/2020 12:00:00 AM [facility] Potassium Chloride [facility] 10 MEQ Oral Tablet Extended Release (K-DUR) 11/25/2020 12:00:00 AM [facility] Potassium Chloride 10 MEQ Extended Release Oral Capsul e 11/25/2020 12:00:00 AM [facility] Lactulose 667 MG/ML Oral Solution 10/20/2020 12:00:00 AM [facility] Acyclovir 0.05 MG/MG Topical Ointment 09/25/2020 12:00:00 AM [facility] 24 HR mirabegron 50 MG Extended Release Oral Tablet 09/15/19 12:00:00 AM [facility] Lidocaine 25 MG/ML / Prilocaine 25 MG/ML Topical Cream 09/04/2020 12:00:00 AM [facility] Polysaccharide iron complex 150 MG Oral Capsule 09/04/2020 12:00:00 AM [facility] valacyclovir 500 MG Oral Tablet 09/04/2020 12:00:00 AM [facility] Lactulose 667 MG/ML Oral Solution 09/04/2020 12:00:00 AM [facility] sodium chloride (preservative free) 0.9 % flush 3 mL 09:00:00 AM [facility] sodium chloride 0.9 % bag 3-20 mL 08/27/2020 07:07:56 AM [facility] Prochlorperazine 10 MG Oral Tablet 08/14/2020 12:00:00 AM [facility] Ondansetron 8 MG Oral Tablet 08/14/2020 12:00:00 AM [facility] Lactulose 83.3 MG/ML Oral Solution 07/10/2020 12:00:00 AM [facility] Sulfamethoxazole 800 MG / Trimethoprim 160 MG Oral Tab let 07/08/2020 12:00:00 AM [facility] Omeprazole 40 MG Delayed Release Oral Capsule 06/25/2020 12:00:00 A M [facility] solifenacin succinate 5 MG Oral Tablet 06/10/2020 12:00:00 AM [facility] solifenacin succinate 5 MG Oral Tablet 06/10/2020 12:00:00 AM [facility] valacyclovir 1000 MG Oral Tablet 04/03/2020 12:00:00 AM [facility] [place]-3 Fatty Acids (FISH OIL) 1200 MG CAPS [facility] Psyllium (METAMUCIL FIBER SINGLES PO) [facility] Levothyroxine Sodium 0.075 MG Oral Tablet [facility] valacyclovir 500 MG Oral Tablet [facility] Omeprazole 20 MG Delayed Release Oral Capsule [facility]
[2021-03-23 16:05] VITALS: BP 127/57
--- NOTE | 2021-03-26 09:59 | ED PDOC ---
Post-Departure Follow-Up radiology report faxed to Raquel Crandall MD Mar 26, 2021 09:58
== END 2021-03-23 16:06 | disposition home or self-care (01) ==
LOC: M ED 13:02
DX: S30.0XXA Contusion of lower back and pelvis, initial encounter (principal); V49.59XA Passenger injured in collision with other motor vehicles in traffic accident, initial encounter; Y92.410 Unspecified street and highway as the place of occurrence of the external cause; R22.2 Localized swelling, mass and lump, trunk; I10 Essential (primary) hypertension; E78.5 Hyperlipidemia, unspecified; M81.0 Age-related osteoporosis without current pathological fracture; Z86.2 Personal history of diseases of the blood and blood-forming organs and certain disorders involving the immune mechanism; Z88.1 Allergy status to other antibiotic agents

== ENCOUNTER → 2022-01-07 | Outpatient (REF) | payer MEDICARE, OTHER, BC ==
[2022-01-07 19:35] LABS: APPEARANCE, URINE MANUAL CLOUDY (CLEAR); COLOR, URINE MANUAL YELLOW (YELLOW)
[2022-01-07 19:36] LABS: BILIRUBIN, URINE MANUAL NEGATIVE (NEGATIVE); BLOOD URINE MANUAL POSITIVE (NEGATIVE); GLUCOSE, URINE (UA) MANUAL NEGATIVE (NEGATIVE); KETONE, URINE MANUAL NEGATIVE (NEGATIVE); LEUKOCYTE ESTERASE, URINE MAN POSITIVE (NEGATIVE); NITRITE, URINE MANUAL NEGATIVE (NEGATIVE); PROTEIN, URINE MANUAL NEGATIVE (NEGATIVE); SPECIFIC GRAVITY,URINE MANUAL 1.025 (1.002-1.035); UROBILINOGEN, URINE MANUAL NORMAL (NORMAL)
[2022-01-07 19:48] LABS: BACTERIA, URINE SMALL AMOUNT; SQUAMOUS EPITHELIAL CELL URINE LARGE AMOUNT /hpf (SMALL AMT); WBC, URINE TNTC /hpf (0-3)
[2022-01-07 19:49] LABS: HYALINE CAST, URINE NONE SEEN /lpf (0-1); MUCUS, URINE SMALL AMOUNT (NEGATIVE)
== END ==
LOC: M LAB REF 16:20
PROVIDERS: ATTEND Physician Assistant
DX: N39.0 Urinary tract infection, site not specified (principal)

== ENCOUNTER → 2022-04-26 | Outpatient (REF) | payer MEDICARE, OTHER, BC ==
[2022-04-26 20:36] LABS: APPEARANCE, URINE MANUAL HAZY (CLEAR); COLOR, URINE MANUAL YELLOW (YELLOW)
[2022-04-26 20:40] LABS: BILIRUBIN, URINE MANUAL NEGATIVE (NEGATIVE); BLOOD URINE MANUAL POSITIVE (NEGATIVE); GLUCOSE, URINE (UA) MANUAL NEGATIVE (NEGATIVE); KETONE, URINE MANUAL NEGATIVE (NEGATIVE); LEUKOCYTE ESTERASE, URINE MAN POSITIVE (NEGATIVE); NITRITE, URINE MANUAL POSITIVE (NEGATIVE); PROTEIN, URINE MANUAL NEGATIVE (NEGATIVE); UROBILINOGEN, URINE MANUAL NORMAL (NORMAL)
[2022-04-26 21:02] LABS: BACTERIA, URINE LARGE AMOUNT; HYALINE CAST, URINE NONE SEEN /lpf (0-1); SQUAMOUS EPITHELIAL CELL URINE MOD AMOUNT /hpf (SMALL AMT); WBC, URINE 20-30 /hpf (0-3)
== END ==
LOC: M LAB REF 16:33
PROVIDERS: ATTEND Physician Assistant Medical
DX: N39.0 Urinary tract infection, site not specified (principal)

== ENCOUNTER → 2023-02-15 | Outpatient (CLI) | payer MEDICARE, OTHER, BC | LOC: M WHC 08:32 | PROVIDERS: ATTEND Internal Medicine | DX: M81.8 Other osteoporosis without current pathological fracture (principal); M85.851 Other specified disorders of bone density and structure, right thigh; M85.852 Other specified disorders of bone density and structure, left thigh ==

== ENCOUNTER → 2024-02-22 | Outpatient (REF) | payer MEDICARE, OTHER, BC ==
[2024-02-22 17:05] LABS: APPEARANCE, URINE HAZY (CLEAR); BACTERIA, URINE AUTO NEGATIVE (NEGATIVE); BILIRUBIN, URINE AUTO NEGATIVE (NEGATIVE); BLOOD, URINE BLOOD NEGATIVE (NEGATIVE); COLOR, URINE YELLOW (YELLOW); GLUCOSE, URINE (UA) AUTO NEGATIVE (NEGATIVE); KETONE, URINE AUTO NEGATIVE (NEGATIVE); LEUKOCYTE ESTERASE, URINE AUTO 3+ (NEGATIVE); MUCUS, URINE SMALL (NEGATIVE); NITRITE, URINE AUTO NEGATIVE (NEGATIVE); PROTEIN, URINE AUTO NEGATIVE (NEGATIVE); RBC, URINE AUTO 2 /HPF (0-3); SPECIFIC GRAVITY URINE AUTO 1.024 (1.002-1.035); SQUAMOUS EPITHELIAL CELL UR AU 3 /HPF (0-6); UROBILINOGEN, URINE AUTO 0.2 mg/dL (0.0-2.0); WBC, URINE AUTO 7 /HPF (0-3)
== END ==
LOC: M LAB REF 16:20
PROVIDERS: ATTEND Physician Assistant
DX: N39.0 Urinary tract infection, site not specified (principal)

== ENCOUNTER → 2024-07-14 | Outpatient (REF) | payer MEDICARE, OTHER ==
[2024-07-14 19:32] LABS: APPEARANCE, URINE MANUAL CLEAR (CLEAR); COLOR, URINE MANUAL GREEN (YELLOW)
[2024-07-14 19:33] LABS: BILIRUBIN, URINE MANUAL NEGATIVE (NEGATIVE); BLOOD URINE MANUAL TRACE (NEGATIVE); GLUCOSE, URINE (UA) MANUAL NEGATIVE (NEGATIVE); KETONE, URINE MANUAL NEGATIVE (NEGATIVE); LEUKOCYTE ESTERASE, URINE MAN POSITIVE (NEGATIVE); NITRITE, URINE MANUAL NEGATIVE (NEGATIVE); PROTEIN, URINE MANUAL TRACE mg/dL (NEGATIVE); UROBILINOGEN, URINE MANUAL NORMAL (NORMAL)
[2024-07-14 19:46] LABS: WBC, URINE 40-50 /hpf (0-3)
[2024-07-14 19:48] LABS: AMORPHOUS SEDIMENT, URINE SMALL AMOUNT (NEGATIVE); BACTERIA, URINE MOD AMOUNT; HYALINE CAST, URINE NONE SEEN /lpf (0-1)
[2024-07-14 19:49] LABS: SQUAMOUS EPITHELIAL CELL URINE LARGE AMOUNT /hpf (SMALL AMT)
== END ==
LOC: M LAB REF 19:09
PROVIDERS: ATTEND Physician Assistant Medical
DX: N39.0 Urinary tract infection, site not specified (principal)

== ENCOUNTER → 2024-08-18 | Outpatient (REF) | payer MEDICARE, OTHER ==
[2024-08-18 18:15] LABS: APPEARANCE, URINE CLEAR (CLEAR); BACTERIA, URINE AUTO 1+ (NEGATIVE); BILIRUBIN, URINE AUTO NEGATIVE (NEGATIVE); BLOOD, URINE BLOOD 2+ (NEGATIVE); COLOR, URINE STRAW (YELLOW); GLUCOSE, URINE (UA) AUTO NEGATIVE (NEGATIVE); KETONE, URINE AUTO NEGATIVE (NEGATIVE); LEUKOCYTE ESTERASE, URINE AUTO 2+ (NEGATIVE); NITRITE, URINE AUTO NEGATIVE (NEGATIVE); PROTEIN, URINE AUTO NEGATIVE (NEGATIVE); RBC, URINE AUTO 1 /HPF (0-3); SPECIFIC GRAVITY URINE AUTO 1.005 (1.002-1.035); SQUAMOUS EPITHELIAL CELL UR AU 1 /HPF (0-6); UROBILINOGEN, URINE AUTO 0.2 mg/dL (0.0-2.0); WBC, URINE AUTO 18 /HPF (0-3)
== END ==
LOC: M LAB REF 15:06
PROVIDERS: ATTEND Physician Assistant Medical
DX: N39.0 Urinary tract infection, site not specified (principal)

== ENCOUNTER → 2024-08-22 | Outpatient (REF) | payer MEDICARE, OTHER | LOC: M LAB REF 18:10 | PROVIDERS: ATTEND Internal Medicine | DX: E03.9 Hypothyroidism, unspecified (principal) ==

== ENCOUNTER → 2025-02-20 | Outpatient (CLI) | payer MEDICARE, OTHER | LOC: M WHC 11:14 | PROVIDERS: ATTEND Internal Medicine | DX: M81.0 Age-related osteoporosis without current pathological fracture (principal) ==